=== PATIENT | female | born 1970 | race Caucasian/White ===

== ENCOUNTER 2018-05-01 16:13 | Outpatient (REF) | payer OTHER, SELFPAY ==
[2018-05-01 19:14] LABS: HCT 41.3 % (36.0-46.0); HGB 13.8 g/dL (12.0-15.5); Mean Corp. HGB Concentration 33.4 g/dL (32.0-36.0); Mean Corpuscular Hemoglobin 28.8 pg (27.0-33.0); Mean Corpuscular Volume 86.2 fL (80-95); Mean Platelet Volume 9.2 fL (8.0-11.0); Platelet Count 408 x1000/uL (130-400); RBC 4.79 m/cumm (4.00-5.20); RBC Distribution Width 14.4 % (11.7-14.6); White Blood Cell Count 8.37 k/cumm (4.4-10.8)
[2018-05-01 19:24] LABS: Iron 72 ug/dL (50-175)
[2018-05-01 19:33] LABS: Hemoglobin A1C 5.9 % (4.5-6.2)
[2018-05-01 19:41] LABS: Ferritin 139 ng/mL (8-388); TSH 1.08 uIU/mL (0.358-3.74)
== END 2018-05-01 16:33 ==
LOC: NCHCN 16:13
PROVIDERS: Visit Provider Nurse Practitioner Family
DX: R73.9 Hyperglycemia, unspecified (principal); R40.0 Somnolence
CPT/HCPCS: 85027; 82728; 83036; 83540; 84443

== ENCOUNTER 2022-11-16 10:03 | Outpatient (CLI) | payer OTHER, SELFPAY ==
--- NOTE | 2022-11-16 06:00 | DI.RAD_ITS ---
Exam(s) XR PAIN CLINIC SACRIOILIAC 2V EXAM: XR PAIN CLINIC SACRIOILIAC 2V CLINICAL HISTORY: DX: Sacroiliac Joint Dysfunction TECHNIQUE: 2D and realtime digital imaging was performed. CONTRAST MATERIAL: Refer to procedure report. COMPARISON: No exams were available for comparison FINDINGS: Fluoroscopy was provided for Dr. Quinn during the performance of a sacroiliac joint injection on the left. Please refer to the procedure report for complete details. Ka,r=2.46 mGy IMPRESSION:
[2022-11-16 10:22] VITALS: BP 109/73; PULSE 85; RESP 20; TEMP 37; O2SAT 97
[2022-11-16] MEDS: Omnipaque 240 MG/ML 50 ML BTL IJ (11:14)
[2022-11-16] MEDS: methylPREDNISolone ACETATE 80 MG/ML VIAL IJ (11:14)
[2022-11-16 11:22] VITALS: BP 116/79; PULSE 90; RESP 16; O2SAT 100
--- NOTE | 2022-11-16 13:30 | PDOC.PAIN ---
Date of service: 11/16/22 Time of Service: 13:31 Pain Managment Procedure Note Procedure Note Procedure Note: PROCEDURE NOTE LEFT INTRA-ARTICULAR SACROILIAC JOINT INJECTION Date of Service: November 16, 2022 Patient: CODY COBOS Provider: Sunny Corrigan DO, MPH COMMENTS: I previously evaluated the patient in the office and their symptoms in relation to the sacroiliac joint pain have remained the same. Hem A1c was 6.5 on 10/20/2022. Pre-operative diagnosis: Sacroiliac joint dysfunction Post-operative diagnosis: Same Pre-procedure pain: VAS= 7/10 CODY COBOS has been referred to our [facility] for a Left intra-articular Sacroiliac joint injection. CODY was interviewed and the medical record reviewed. There were no medical, pharmacologic, radiographic or other structural contraindications to attempting a fluoroscopically-guided, contrast-enhanced, intra-articular Sacroiliac joint injection. The risks, benefits, and potential side effects of this procedure were reviewed with the patient. Questions and concerns were addressed. After it was clear that CODY was fully informed about the procedure, the printed consent form was signed by the patient and myself. CODY was placed in the prone position on the fluoroscopy table and an automated blood pressure cuff, 3 lead EKG, and pulse oximeter were applied. The skin entry point for approaching the Left sacroiliac joint was identified under the most advantageous fluoroscopic view and marked. Following thorough Chlorhexadine preparation of the skin and draping with sterile surgical drapes, 2 mls of 1% lidocaine was infiltrated into the skin at the entry point and the surrounding subcutaneous tissues. Next, a 3.5 22G spinal needle was placed under fluoroscopic guidance into the Left sacroiliac joint. Intra-articular placement was confirmed by a clear arthrogram resulting from the injection of 0.25ml of Omnipaque-240. Next, 1 ml of Depo- Medrol 80 mg/ml was injected intra-articularly with an initial reproduction of a significant component of the usual pain. This was followed with 1 ml of 1% Lidocaine. The needle was then removed without difficulty. (49 ml of Omnipaque-240 was wasted). CODY's vital signs were stable throughout the procedure and were as recorded in nursing records. Follow up plans and appointments were discussed with CODY. Post procedure instructions were given as documented in nursing records. Having met discharge criteria, CODY was [facility] from the [facility]. COMMENTS: Post-procedure pain: VAS= 7/10. The procedure was very painful for her. If the patient receives at least 50% improvement in pain and/or function for at least 3 months, this procedure can be repeated if needed. I personally performed this entire procedure. SUNNY CORRIGAN DO, MPH ABPMR-subspecialty board certification in Pain Medicine [facility]
== END 2022-11-16 10:04 | disposition home or self-care (01) ==
LOC: PC 10:03
PROVIDERS: PCP Internal Medicine; Visit Provider Preventive Medicine Occupational Medicine
DX: M46.1 Sacroiliitis, not elsewhere classified (principal)
CPT/HCPCS: 27096; 72200; J1040; Q9967

== ENCOUNTER → 2022-12-22 12:27 | Outpatient (CLI) | payer BC, SELFPAY ==
--- NOTE | 2022-12-22 | DI.MRI_ITS ---
Exam(s) MR LUMBAR SPINE WO EXAM: MR LUMBAR SPINE WO CLINICAL HISTORY: RADICULOPATHY LUMBAR M54.16 URINARY INCONTINIENCE. TECHNIQUE: Multiplanar multisequence MRI of the Lumbar spine was performed. COMPARISON: MR MR LS SPINE W/WO CONTRAST from 08/05/2022 FINDINGS: Bones: The last intervertebral disc space is designated the L5/S1 level for the numbering purpose of this ex amination. The vertebral body heights are well maintained. Alignment: Unremarkable. Degenerative signal changes in the endplates at the L4-5 level.. The marrow signal characteristics a re otherwise unremarkable. Cord: The conus tip ends at the T12 level. It is of normal size and signal intensity. T12-L1: No focal disc herniation is present. No central spinal canal stenosis.No neural foraminal st enosis. L1-2: No focal disc herniation is present. No central spinal canal stenosis.No neural foraminal sten osis. L2-3: No focal disc herniation is present. No central spinal canal stenosis.No neural foraminal filipe nosis. L3-4: Minimal disc bulging.No focal disc herniation is present. No central spinal canal stenosis.No neural foraminal stenosis. L4-5: Left laminectomy L4. Stable appearance of qhnj-ds-scxjgbhl loss of disc height and central di sc protrusion.. Mild facet joint degenerative changes. Mild bilateral neural foraminal narrowing. No central spinal canal stenosis. L5-S1: Minimal disc bulging.No focal disc herniation is present. No central spinal canal stenosis.N o neural foraminal stenosis. The visualized SI joints and sacrum are well maintained. Soft tissues: The paraspinal soft tissues are unremarkable. IMPRESSION: Stable postsurgical changes at L4-5. Stable appearance of central disc protrusion and mild bilateral neural foraminal narrowing. No new findings. DATA REPOSITORY:
== END ==
PROVIDERS: PCP Internal Medicine; Visit Provider Internal Medicine
DX: M54.16 Radiculopathy, lumbar region (principal); M99.71 Connective tissue and disc stenosis of intervertebral foramina of cervical region
CPT/HCPCS: 72148

== ENCOUNTER 2023-04-12 13:14 | Outpatient (CLI) | payer OTHER, SELFPAY ==
[2023-04-12 13:22] VITALS: BP 113/78; PULSE 112; RESP 20; TEMP 36.7; O2SAT 97
--- NOTE | 2023-04-12 13:51 | PDOC.PAIN ---
Date of service: 04/12/23 Time of Service: 13:51 Pain Managment Procedure Note Procedure Note Procedure Note: PROCEDURE NOTE LEFT INTRA-ARTICULAR SACROILIAC JOINT INJECTION Date of Service: April 12, 2023 Patient: Emilee Wilhelm Provider: Sunny Quinn DO, MPH COMMENTS: I previously evaluated the patient in the office and their symptoms in relation to the sacroiliac joint pain have remained the same. Pre-operative diagnosis: Sacroiliac joint dysfunction Post-operative diagnosis: Same Pre-procedure pain: VAS= 8/10 Emilee Wilhelm has been referred to our [facility] for a Left intra-articular Sacroiliac joint injection. Emilee was interviewed and the medical record reviewed. There were no medical, pharmacologic, radiographic or other structural contraindications to attempting a fluoroscopically-guided, contrast-enhanced, intra-articular Sacroiliac joint injection. The risks, benefits, and potential side effects of this procedure were reviewed with the patient. Questions and concerns were addressed. After it was clear that Emilee was fully informed about the procedure, the printed consent form was signed by the patient and myself. Emilee was placed in the prone position on the fluoroscopy table and an automated blood pressure cuff, 3 lead EKG, and pulse oximeter were applied. The skin entry point for approaching the Left sacroiliac joint was identified under the most advantageous fluoroscopic view and marked. Following thorough Chlorhexadine preparation of the skin and draping with sterile surgical drapes, 2 mls of 1% lidocaine was infiltrated into the skin at the entry point and the surrounding subcutaneous tissues. Next, a 3.5 22G spinal needle was placed under fluoroscopic guidance into the Left sacroiliac joint. Intra-articular placement was confirmed by a clear arthrogram resulting from the injection of 0.25ml of Omnipaque-240. Next, 1 ml of Depo- Medrol 80 mg/ml was injected intra-articularly with an initial reproduction of a significant component of the usual pain. This was followed with 1 ml of 1% Lidocaine. The needle was then removed without difficulty. (49 ml of Omnipaque-240 was wasted). Emilee's vital signs were stable throughout the procedure and were as recorded in nursing records. Follow up plans and appointments were discussed with Emilee. Post procedure instructions were given as documented in nursing records. Having met discharge criteria, Emilee was [facility] from the [facility]. COMMENTS: Post-procedure pain: VAS= 3/10. If the patient receives at least 50% improvement in pain and/or function for at least 3 months, this procedure can be repeated if needed. I personally performed this entire procedure. SUNNY QUINN DO, MPH ABPMR-subspecialty board certification in Pain Medicine [facility]
[2023-04-12 13:54] VITALS: BP 116/91; PULSE 118; RESP 15; O2SAT 100
--- NOTE | 2023-04-12 13:56 | DI.RAD_ITS ---
Exam(s) XR PAIN CLINIC SACRIOILIAC 2V EXAM: XR PAIN CLINIC SACRIOILIAC 2V CLINICAL HISTORY: Dx: Sacroiliac Joint Dysfunction TECHNIQUE: 2D and realtime digital imaging was performed. CONTRAST MATERIAL: Refer to procedure report. COMPARISON: No exams were available for comparison FINDINGS: Fluoroscopy was provided for Dr. Quinn during the performance of a left SI joint injection. Please r efer to the procedure report for complete details. Ka,r=3.21 mGy IMPRESSION: RADIATION DOSE DELIVERED:
[2023-04-12] MEDS: Nerve Block Tray 1 EACH MC (13:57)
[2023-04-12] MEDS: Omnipaque 240 MG/ML 50 ML BTL IJ (13:57)
[2023-04-12] MEDS: methylPREDNISolone ACETATE 80 MG/ML VIAL IJ (13:57)
== END 2023-04-12 13:15 | disposition home or self-care (01) ==
LOC: PC 13:14
PROVIDERS: PCP Internal Medicine; Visit Provider Preventive Medicine Occupational Medicine
DX: M46.1 Sacroiliitis, not elsewhere classified (principal)
CPT/HCPCS: 123; 27096; 72200; 00123; J1040; Q9967

== ENCOUNTER → 2023-10-04 00:55 | Outpatient (CLI) | payer OTHER, SELFPAY ==
--- NOTE | 2023-10-04 | DI.MRI_ITS ---
Exam(s) MR LUMBAR SPINE WO/W EXAM: MR LUMBAR SPINE WO/W CLINICAL HISTORY: LUMBAR DISC HERNIATION WITH RADICULOPATHY, M51.16. TECHNIQUE: Multiplanar multisequence MRI of the Lumbar Spine was performed. Additional pre and post gadolinium fat suppressed T1 sagittal and axial sequences were performed. CONTRAST MATERIAL: IV Contrast: 14 mL of Dotarem contrast administered. COMPARISON: MR MR LUMBAR SPINE WO from 12/22/2022 FINDINGS: Bones: The last intervertebral disc space is designated the L5/S1 level for the numbering purpose of this examination. The vertebral body heights are well maintained. Alignment is satisfactory. The signal characteristics are unremarkable. Cord: The conus tip ends at the T12 level. It is of normal size and signal intensity. T12-L1: No disc herniations or bulges are present. No central spinal canal or neural foraminal stenos is. L1-2: No disc herniations or bulges are present. No central spinal canal or neural foraminal stenosis . L2-3: No disc herniations or bulges are present. No central spinal canal or neural foraminal stenosis . L3-4: No disc herniations or bulges are present. No central spinal canal or neural foraminal stenosis . L4-5: Left laminectomy. Tzhb-le-cytzvfjf loss of disc height and partial disc desiccation. Concentr ic disc bulging. Previously noted central disc protrusion is no longer evident. Mild facet degenera tive changes, greater on the right. No central spinal canal stenosis. Mild bilateral neural foramin al narrowing, greater on the right. L5-S1: No disc herniations or bulges are present. No central spinal canal or neural foraminal stenosi s. The visualized SI joints and sacrum are well maintained. Soft tissues: Enhancement in the paraspinal soft tissues at the L4-5 level related to the previous huerta rgery. No abnormal enhancement within the central canal, vertebral bodies or discs. IMPRESSION: Postsurgical changes at L4-5. Previously noted central disc protrusion no longer present. There is mild loss of disc height and mild disc bulging as well as mild bilateral neural foraminal narrowing. No significant central canal stenosis. No suspicious enhancement. DATA REPOSITORY:
--- OUTSIDE RECORDS SUMMARY | 2023-10-04 01:01 | XMS_ITS | Data Portability ---
Author Organization [facility] [place] [address] Care Team Providers Care Cloth Coverer Name Role Phone DEVON JETT Primary Care Provider Assessment No assessment recorded. Plan of Treatment Reminders Order Date Submit Date Provider Last Modified By Organization Details Last Modified Time Details Appointments None recorded. Lab rapid strep group A, throat [id number], [place], [address], 3 12:16:50 influenza virus A + B + SARS-CoV-2 (COVID19) Ag panel, rapid IA, upper respiratory specimen [id number], [address], [place], [address], 3 12:16:50 Referral None recorded. Procedures None recorded. Surgeries None recorded. Imaging None recorded. Medication Orders amoxicillin 875 mg-potassiu m clavulanate [address] [facility], [address] [place] [address], [id number], 4 14:21:40 cephalexin 500 [address] capsule [address] [facility], [address] [place], [address], 14:40:11 Patient TargetsNo targets recorded. Patient InstructionsNo instructions recorded. Reason for Referral None Reported. Results Created Date Observation Date Name Description Value Unit Range Abnormal Flag LastModifiedBy Organization Detail LastModifiedTime 01/26/2001/25/2023 influ john virus A + B + SARS- CoV-2 (COVI D19) Ag panel , rapid IA, upper respi rator y speci men Influenza A negati ve Not Available [address] [place] [address], [phone], 01/25/2023 11:41:04 01/26/20 23 01/25/2023 influ john virus A + B + SARS- CoV-2 (COVI D19) Ag panel , rapid IA, upper respi rator y speci men Influenza B negati ve Not Available [address] [place] [address], [phone], 01/25/2023 11:41:04 01/26/20 23 01/25/2023 influ john virus A + B + SARS- CoV-2 (COVI D19) Ag panel , rapid IA, upper respi rator y speci men SARS-COV-2 negati ve Not Available [address] [place] [address], [phone], 01/25/2023 11:41:04 01/26/2001/25/2023 rapid strep group A, throa t Strep negati ve Not Available [address] [place] [address], [phone], 01/25/2023 11:40:37 Result Notes None recorded. Procedures Surgical History Date Name Laterality Status Provider Name and Address Organization Details Recorded Time 09/06/2023 I&D completed [address], [place], [address], [facility] 09/06/2023 14:43:08 Imaging Results None recorded. Procedure Notes None recorded. Medical Equipment None Reported. Allergies Allergen ID Allergen Name Allergen Category Reaction Reaction Severity Criticality Documentation Date Start Date Code Code System Note Provider Name and Address Organization Details Recorded Time 50366 metoprolo l Not available other mild low 01/25/2023 6918 RxNorm depre carloson Brenda Helm RN null, [facility] 3 11:17:49 22244 Provigil medicatio n other Not available low 01/25/2023 07882 4 RxNorm Brenda Helm RN null, [facility] 3 11:18:28 Medications Name Sig Start Date Stop Date Status Note LastModified by Organization Details LastModified Time trazodone 50 mg tablet Take 1 tablet every day by oral route. 09/05 completed Not Available Not Available Not Available atorvasta tin 10 mg tablet Take 1 tablet every day by oral route. active unsure of the strength Not Available Not Available Not Available benzonata te 200 mg capsule Take 1 capsule 3 times a day by oral route for 5 days. 09/05 completed Not Available Not Available Not Available trazodone 100 mg tablet Take 1 tablet twice a day by oral route. 09/05 completed Not Available Not Available Not Available Compazine 5 mg tablet Take 1 tablet every 4 hours by oral route. active Not Available Not Available No t Available baclofen 10 mg tablet Take 1 tablet 3 times a day by oral route. active Not Available Not Available No t Available cephalexi n 500 mg capsule Take 1 capsule twice a day by oral route for 7 days. 2023 active Not Available Not Available Not Avai lable hydroxyzi ne HCl 10 mg tablet Take by oral route. active Not Available Not Available No t Available amoxicill in 875 mg-potass ium clavulana te 125 mg tablet Take 1 tablet every 12 hours by oral route for 10 days. 09/05 completed Not Available Not Available Not Available ketorolac active unsure of dose. PRN Not Available Not Available Not Available Ubrelvy 100 mg tablet Take by oral route. active Not Available Not Available No t Available Nurtec ODT 75 mg disintegr ating tablet Take by oral route. active Not Available Not Available No t Available Vitals Date Recorded Body height Body mass index (BMI) Body weight Respiratory rate Oxygen saturation Oxygen saturation in Arterial blood by Pulse oximetry Heart rate Body temperature Systolic blood pressure Diastolic blood pressure Provider Name and Address Organization Details Last Updated DateTime 3 165.1 cm 25 kg/m2 16646.8 6 g 19 /min 98 % 98 % 113 /min 100.1 [degF] 104 mm[Hg] 72 mm[Hg] Brenda Helm RN [facility] 3 11:17:07 Date Recorded Body height Respiratory rate Body mass index (BMI) Body weight Body temperature Oxygen saturation Oxygen saturation in Arterial blood by Pulse oximetry Heart rate Systolic blood pressure Diastolic blood pressure Provider Name and Address Organization Details Last Updated DateTime 4 165.1 cm 18 /min 24.5 kg/m2 50580.4 8 g 98 [degF] 98 % 98 % 82 /min 106 mm[Hg] 64 mm[Hg] Meenakshi Kwong MA [facility] 4 14:23:56 Social History Question Answer Notes LastModified by Organizat ion Details LastModified Time Tobacco Smoking Status Never Smoker Brenda Helm RN [facility], [facility] 01/25/2023 11:21:15 What Was The Date Of Your Most Recent Tobacco Screening? 09/06/2023 [email or web address] Information not available 09/06/2023 Has Tobacco Cessation Counseling Been Provided? No [email or web address] Information not available 09/06/2023 On What Date Was Tobacco Cessation Counseling Provided? 01/25/2023 Information not available 01/25/2023 Do You Or Have You Ever Used Any Other Forms Of Tobacco Or Nicotine? No Information not available 01/25/2023 Sex: Unknown Functional Status None recorded. Mental Status None recorded. Family History Nothing Reported. Medical History No medical history recorded. Gynecological HistoryNo gynecological history recorded. Obstetrics History GPAL:G 0 P 0 0 0 0 Immunizations Vaccine Type Date Status Provider Name and Address Organization Details Recorded Time COVID-19, mRNA, LNP-S, bivalent, PF, 50 mcg/0.5 mL or 25mcg/0.25 mL dose 06/21/2020 completed Brenda Helm RN null, [facility] 01/25/2023 11:09:06 COVID-19, mRNA, LNP-S, bivalent, PF, 50 mcg/0.5 mL or 25mcg/0.25 mL dose 07/21/2020 completed Brenda Helm RN null, [facility] 01/25/2023 11:09:10 influenza, unspecified formulation 12/27/2022 completed LINDA Tsai, [facility] 01/25/2023 11:09:25 Tdap 05/24/2013 completed LINDA Tsai, [facility] 01/25/2023 11:09:38 zoster, unspecified formulation 06/12/2022 completed LINDA Tsai, [facility] 01/25/2023 11:09:46 zoster, unspecified formulation 08/22/2022 completed LINDA Tsai, [facility] 01/25/2023 11:09:51 Past Encounters Encounter ID Performer Location Encounter Start Date Encounter Closed Date Diagnosis/Indication Diagnosis SNOMED-CT Code [id number] MARLEN GAINES PA-C [address] [address] 01/25/2023 11:06:57 01/25/2023 11:54:41 Influenza-like illness [id number] Pneumonia [id number] [id number] MARLEN GAINES PA-C [address] [address] 09/06/2023 14:04:15 09/06/2023 14:41:34 Paronychia of finger 791664618 Health Concerns Section Related Observation LastModified by Organization Detai ls LastModified Time None Recorded Concern Status LastModified by Organization Details LastModified Time None Recorded Advance Directives Directive None Recorded Payers Encounter Date Sequence Insurance Name Policy Number Policy Guevara Covered Member ID Guevara Member ID Guarantor Name 01/25/2023 1 [employer]: [place] Emilee Wilhelm [id number] Emilee Wilhelm 09/06/2023 1 [facility] [id number] Emilee Wilhelm [id number] Emilee Wilhelm Notes Date Note Type Note Provider Name and Address Organization Details Recorded Time 01/25/2023 text/html HPI Notes: Giovanny fernandez is a 52-year-old female presenting for cough and cold symptoms. Has been sick for 1 week. Reports productive cough. No chest pain or shortness of breath. No history of asthma or COPD. Non-smoker. Associated nasal congestion and sore throat. No ear pain sinus pain or headache. Reports significant fatigue. Subjective fevers and chills. Has been taking ddnq-qkp-vwtqfod cold medication with some relief but no resolution. No known sick contacts [address], [place], [address], [facility]. 01/25/2023 12:08:29 09/06/2023 text/html HPI Notes: Giovanny fernandez is a 53-year-old female presenting for left third finger pain and swelling. Denies any injury or trauma. Started having swelling this along the side of the nail which has gotten progressively worse. She has tried soaking it in Epsom salts with limited relief. Has been taking iguu-qzm-hblboft pain medicines also with minimal relief. No history of similar issues in the past. [address], [place], [address], [facility]. 09/06/2023 14:43:58 OBGyn Episode No OBEpisode recorded.
--- OUTSIDE RECORDS SUMMARY | 2023-10-04 01:01 | XMS_ITS | Continuity of Care Document ---
Author Organization [facility] Address [address] [place] [address] Care Team Providers Care Financial Analyst Accountant Name Role Phone Dina Diaz Primary Care Physician Encounter [facility] [id number] Date(s): 10/06/22 - 10/06/[address] [address] Encounter Diagnosis Screening for breast cancer(Discharge Diagnosis) - 10/06/22 Breast calcifications(Discharge Diagnosis) - 10/06/22 Discharge Disposition: Home or Self Care Attending Physician: Dina Diaz Admitting Physician: Dina Diaz Referring Physician: Dina Diaz Allergies, Adverse Reactions, Alerts Substance Reaction Severity Status SOY Unknown Active WHEAT Unknown Active SHELLFISH DERIVED Anaphylactic reaction Severe A ctive TREE AND SHRUB POLLEN 1 Unknown Acti ve codeine Unknown Active metoprolol 2 Depression Unknown Active amitriptyline Unknown Active imipramine Unknown Unknown Active morphine Unknown Active acetaminophen-hydrocodone Unknown Unknown Ac tive acetaminophen-oxycodone Unknown Unknown Acti ve modafinil 3 runny nose Difficulty swallowing Other Unknown Active armodafinil 4 Other Unknown Active Roxicet Unknown Unknown Active Provigil Unknown Unknown Active oxyCODONE Unknown Active HYDROcodone Unknown Unknown Active ARIPiprazole Unknown Active Tree Nuts Unknown Unknown Active Peanuts Unknown Active Latex 5 no reaction Unknown Active dilTIAZem Depression Chest pain Moderate Active rimegepant Eruption Severe Active DilTIAZem (Eqv-Cardizem CD) Unknown Unknown Active 1per AllScripts 2depression 3Excessive runny nose and hard to swallow. 4Excessive runny nose and hard to swallow. 5immunotherapy Assessment and Plan Future Appointments Immunizations Given and Recorded Vaccine Date Status Refusal Reason zoster vaccine, inactivated 1 06/12/22 Recorded influenza virus vaccine, inactivated 12/22/21 Give n influenza virus vaccine, live 11/10/20 Recorded influenza virus vaccine, live 05/01/18 Recorded SARS-CoV-2 (COVID-19) mRNA-1273 vaccine 07/21/20 R ecorded SARS-CoV-2 (COVID-19) mRNA-1273 vaccine 06/21/20 R ecorded measles/mumps/rubella virus vaccine 04/01/14 Recor ded influenza, unspecified formulation 04/01/14 Record ed influenza, unspecified formulation 2 12/31/10 Kal rded influenza, unspecified formulation 3 01/18/10 Kal rded tetanus/diphth/pertuss (Tdap) adult/adol 05/24/13 Recorded Td(adult) unspecified formulation 04/27/10 Recorde d Td(adult) unspecified formulation 04/27/10 Recorde d tetanus immune globulin 06/05/07 Recorded 1Result Comment: [employer]zaida [employer] 2Result Comment: 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: GlaxoSmithKline 3Result Comment: 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: San[employer]i P[employer] Medications acetaminophen 325 mg oral tablet 650 mg = 2 tab, Oral, every 4 hr, PRN other (see comment), as needed, 0 Refill(s) Start Date: 07/08/21 Status: Ordered atorvastatin 20 mg oral tablet 20 mg = 1 tab, Oral, every morning, # 90 EA, 3 Refill(s), Pharmacy: [id number], 165, cm,08/14/21 10:33:00 EDT, Height/Length Dosing, 56, kg, 08/14/21 10:33:00 EDT, Weight Dosing Start Date: 11/25/21 Status: Ordered baclofen 10 mg oral tablet 90 EA, TAKE 1 TABLET BY MOUTH THREE TIMES DAILY NEEDED FOR MILD TO MODERATE HEADACHES - MAX DAILY DOSE 3 TABLETS (30MG), 0 Refill(s) Start Date: 04/06/22 Status: Ordered cyclobenzaprine 10 mg oral tablet 10 mg = 1 tab, Oral, TID, PRN as needed for muscle spasm, # 30 tab, 0 Refill(s), Pharmacy: [id number], 165, cm, 03/28/22 10:18:00 EST, Height/Length Dosing, 62, kg, 03/28/22 10:18:00 EST, Weight Dosing Start Date: 03/28/22 Status: Ordered EPINEPHrine 0.3 mg injectable kit 1 auto, IM, As Directed, PRN other (see comment), as needed, 0 Refill(s) Start Date: 07/08/21 Status: Ordered gabapentin 100 mg oral capsule Oral, TID, 100 Unknown, 1 Refill(s), Take 100 mg by mouth 3 times daily., 0 Refill(s) Start Date: 09/15/22 Status: Ordered hydrOXYzine hydrochloride 25 mg oral tablet Oral, 1 Unknown, 1 Refill(s), Take 1 tablet by mouth as needed., 0 Refill(s) Start Date: 09/15/22 Status: Ordered ibuprofen 800 mg oral tablet 800 mg = 1 tab, Oral, every 8 hr, # 30 tab, 0 Refill(s), Pharmacy: [id number], 165, cm, 03/28/22 10:18:00 EST, Height/Length Dosing, 62, kg, 03/28/22 10:18:00 EST, Weight Dosing Start Date: 03/28/22 Status: Ordered ketorolac See Instructions, PRN, 0 Refill(s) Start Date: 09/16/22 Status: Ordered Lyrica 25 mg oral capsule Oral, 25 Unknown, 1 Refill(s), Take 25 mg by mouth., 0 Refill(s) Start Date: 09/15/22 Status: Ordered Nurtec ODT 75 mg oral tablet, disintegrating 0 Refill(s) Start Date: 08/16/22 Status: Ordered prochlorperazine 10 mg oral tablet 10 mg = 1 tab, Oral, every 8 hr, PRN other (see comment), as needed per [facility] headache clinic Start Date: 07/08/21 Status: Ordered Qulipta 60 mg oral tablet 30 EA, TAKE 1 TABLET BY MOUTH ONCE DAILY, 0 Refill(s) Start Date: 09/15/22 Status: Ordered traZODone 100 mg oral tablet See Instructions, TAKE 1 TABLET BY MOUTH ONCE DAILY AT BEDTIME, # 90 tab, 0 Refill(s), Pharmacy: [id number], 165, cm, 04/12/22 13:34:00 EST, Height/Length Dosing, 59.87, kg, 04/12/22 13:34:00 EST, Weight Dosing Start Date: 07/14/22 Status: Ordered Ubrelvy 100 mg oral tablet See Instructions, TAKE 1 TABLET BY MOUTH NEEDED (TAKE AT ONSET OF MIGRAIN, CAN REPEAT DOSE IN 2 HOURS, MAX DOSE OF 200 MG) Start Date: 08/26/21 Status: Ordered vilazodone 20 mg oral tablet 30 EA, TAKE 1 TABLET BY MOUTH ONCE DAILY FOR 30 DAYS, 0 Refill(s) Start Date: 09/15/22 Status: Ordered Problem List Condition Confirmation Course Effective Dates Status Health Status Informant Abnormal cervical Papanicolaou smear Confirmed Active Allergic rhinitis 1 Confirmed 02/01/21 Active Anaphylaxis Confirmed Active Anxiety Confirmed Active Arthritis Confirmed Active Bipolar disorder 2 Confirmed 12/13/13 Active Borderline personality disorder Confirmed 05/25/21 Active Cataplexy and narcolepsy 3 Confirmed 01/07/20 Active Cobalamin deficiency Confirmed 05/07/15 Active Daytime somnolence 4 Confirmed Active Degeneration of lumbar intervertebral disc Confirmed 03/28/14 Active Female stress incontinence Confirmed 01/08/15 Active Fibromyalgia 5 Confirmed Active Herniation of nucleus pulposus of lumbar intervertebral disc Confirmed 04/13/22 Active History of subtotal thyroidectomy 6 Confirmed 12/14/20 Active Human papilloma virus infection Confirmed Active Hyperlipidemia 7 Confirmed Active Hypothyroidism Confirmed Active Incomplete bladder emptying Confirmed Active Injury of left shoulder Confirmed Active Insomnia 8 Confirmed Active Laryngopharyngeal reflux Confirmed 08/20/13 Active Low back pain Confirmed Active Mammography abnormal 9 Confirmed 01/07/21 Active Medication overuse headache Confirmed 06/29/21 Active Migraine 10 Confirmed Active Mixed anxiety and depressive disorder Confirmed 07/16/15 Active Neuropathy 11 Confirmed Active Obstructive sleep apnea syndrome 12 Confirmed Active Bilateral knee pain 13 Confirmed Active Partial mastectomy 14 Confirmed Active Well adult exam Confirmed Active Posttraumatic stress disorder Confirmed 05/25/21 Active Prediabetes 15 Confirmed Active Prolapsed lumbar intervertebral disc Confirmed 04/13/22 Active Sleep apnea Confirmed 03/20/15 Active Tachycardia Confirmed 11/01/18 Active Toxic uninodular goiter Confirmed 12/24/13 Active Vitamin D deficiency Confirmed 07/22/[address] Cooper - allergy to trees, weeds, grasses, dust mite, dogs/cats 2Outside Source Comment: Overview: meds as of . Lamictal 100mg BID. [place] ER 450mg 1 1/2 tabs qhs. cymbalta 60mg. Zalephon for sleep. Has seen Dr. Singer at [facility]: 12/[facility]: New diagnosis of narcolepsy with cataplexy, clinical diagnosis based on cataplexy history and MSLT showed very short sleep latency but no SOREMPs, suspect MSLT may be false negative. Unable to repeat due to insurance coverage/cost and medication disruption (she had to stop doxepin which was helping her sleep better at night). 03/11/20: cont methylphenidate ER 10mg (lowest avail dose), but pt does not feel effect is enough. offered inc to 20mg vs adding sunosi. she prefers the latter. I discussed risks/side efx of sunosi, including inc HR/BP, she is aware and is compliant on her beta gabriel and will be monitoring her HR closely. Urinating frequently at night was barrier to xywav use, so she wants hold off on trying this again until AFTER her bladder prolapse repair surgery in Apr 2020. ADDENDUM 03/25/20: pt wants to proceed w/ wakix after clarifying that cetrizine would be fine to useas antihistamine. checked she had EKG Dec 2019 showing normal Qtc 432msec as QT prolongation is concern with wakix. Rx form filled for wakix, titration in 30 days up to 35.6mg as tolerated, waiting on pt to fill her portion before faxing in. 05/19/20: pt wishes to try Xywav again now that she thnks her freq nocturia is improving. had her tvt surgery. not on sunosi or methylphenidate, per factors below. Aside from xywav - i offered her trying wakix 4.45mg x 1.5 tabs again, vs low dose vyvanse 10mg qAM. she will let me know if she wishes to do so. 06/12/20: pt requests to try vyvanse 10mg qAM, rx sent. Timeline/Medications tried: Modafinil - many years ago - effective but d/c 2/2 severe rhinorrhea to point of throat closing Armodafinil - 12/11/2019 - effective, but felt similar as modafinil, so d/c'ed Methylphenidate ER 10mg - 12/10 to 12/24/19 - effective for 2 days, took in morning, then laying inbed at night got sudden onset heart palpitations and chest pain, given baseline tachycardia (Hr 90sto low 100s), d/c'ed Xywav - 01/28/20 to present, with pauses- effective for few nights/days, side efx: excessive sweating, excessive urinating, dizziness, sleep paralysis and not responding well at all on a higher dose with inability to stay asleep. Sunosi 75mg - effective but had rhinorrhea wakix - 17.8mg or 02/28 17.8mg kept her wake all night, heart racing (at bedtime); 4mg pill did not do anything methylphenidate 10mg - did not like how she felt on it 4From 05-19-2020 visit: timeline: ESS always very high in high 10's or 20s. 07/31/18: first time I met patient, she had yahir, then UPPP. complex sleep hx with hypersomnia and insomnia. offered MSLT but unable to pay due to underinsurance. 06/18/19: cont struggle re: sleep attacks, overwhelming excessive daytime sleepiness and fatigue. and severe sleep fragmentation. Modafinil tried in past effective but d/c'ed 2/2 questionable allergicrxn. on vit D. ? Cataplexy: She also now reports facial and leg weakness triggered by anger. occ basis. she had remote hx of sleep paralysis in her 30s, none currently. 09/17/19: ready to do PSG/MSLT. d/c doxepin 2 wks prior MSLT then resume. wanted other suggestions, case reports only but can try L-carnitine 500mg daily, but should stop 2 weeks prior to sleep studies. see narcolepsy section 5From 12-14-2020 visit: Medications trialed and unable to tolerate TCAs, duloxetine, gabapentin, lyrica, cyclobenzaprine. She has seen rheumatology . 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 We discussed trial of naltrexone for her chronic pain. Naltrexone 1-4.5 mg qd. Would need to send rx to compounding pharmacy in [place]. Reviewed MOA, side effects. She would also like to get involved in resistance band training. >50% of this 40 minute appointment was spent in face to face counseling. 6From 12-14-2020 visit: S/P LT partial thyroidectomy. TSH annually. She is not on thyroid replacement. 7From 11-03-2020 visit: Has been on atorvastatin 20 mg qd since 10/2019. She is tolerating well. Repeat FLP and CMP. 8suspect to be due to narcolepsy with cataplexy 9[facility] consultation 01/07/21 with additional imaging, BI-RADS: 3, repeat mammo of LT breast in 6 months 10From 03-08-2019 visit: Patient has a h/o migraine which recently increased in frequency and severity. She notes sleep is always an issue for her. She drinks very little caffiene and hydrates adequately. I have recommended reducing use of OTC analgesics as she may be experiencing rebound headaches. I will rx sumatriptan 50 mg as an abortive measure. Due to the acute increase in frequency and severity of migraines will evaluate further with MRI of brain. 11diagnosis from previous EMR; pt not aware of this diagnosis 12s/p UPPP; residual borderline mild YAHIR that is treated by avoiding back position sleep From 05-19-2020 visit: 07/31/18: [facility] records not available at time of consult, but per pt's recollection, she may have had mild to moderate YAHIR, tried cpap but could not tolerate, then proceeded with uvulopalatoplasty. Her symptoms sound out of proportion to mild to mod YAHIR, but I advise repeat sleep study to evaluate. Pt states she cannot have expensive test due to not being able to afford her 2000 dollar insurance deductible. she dos not think she will qualify for fin assistance at [facility] due to just being . Requested [facility] records to review. Order Home Sleep Study, get prior authorization, requested based on snoring, daytime hypersomnia, unrefreshing sleep, difficulty falling and staying asleep. 09/04/2018: home sleep study s/p UPPP at 169lbs did not show YAHIR, cannot rule out milder YAHIR with RERAs, but pt cannot have in lab PSG due to cost for her/underinsured. at the time. AHI 2.4/hr. 06/18/19: I do not think YAHIR is contributing significantly as her symptoms really sound more like narcolepsy/IH. however if we are able to do PSG/MSLT, would be able to also r/o YAHIR more definitively. 12/03/19: advised her to avoid direct supine sleep which is when she has events, otherwise even slight lateral tilt, she is mostly free of resp events on recent PSG. 01/14/20: no issues with YAHIR, she utilizes positional therapy which is adequate based on her sleep study results 05/19/20: pt now reports she does NOT usually sleep lateral as back sleep more comfortable for her. she is open to trying cpap now (anything to help w/ my sleep, she tried in past but wants to try again as equipment is newer). will need to review her PSG again and see if she may have higher RDI uponrescoring. if so, she would qualify. if not, she needs to repeat PSG w/ more supine position sleep (when she had the RERAs) 13per AllScripts 14Bilateral 15per pt packet; Patient with A1c of 5.9% 04/2018, has made several lifestyle modifications. Evaluate A1c today per patient requestion. We discussed snacks with increased protein and fiber to decrease hungry and nighttime waking. She is interested in referral to nutrition for further guidance. Procedures Procedure Date Related Diagnosis Body Site Status Laminectomy, facetectomy and foraminotomy (unilateral or bilateral with decompression of spinal cord, cauda equina and/or nerve root(s), (eg, spinal or lateral recess stenosis)), single vertebral segment; lumbar 04/14/22 Completed Hemilaminectomy 1 04/13/22 Complet ed Removal or revision of sling for stress incontinence (eg, fascia or synthetic) 03/15/22 Completed Colonoscopy 2 06/10/20 Completed Egd/endoscopy 3 06/10/20 Completed Tlh w/t/o 250 g or less 4 04/30/20 Completed Repair of stress incontinenc e by suprapubic sling 09/27/15 Completed Subtotal thyroidectomy 01/26/14 Co mpleted Partial mastectomy 11/26/09 Comple maame Orthopedic surgery 5 09/2009 Comp leted Rhinoseptoplasty 02/26/06 Complete d Endometrial ablation 11/27/99 Comp leted Cholecystectomy 07/27/97 Completed Tubal ligation 02/27/96 Completed 1LT L4-5 hemilaminectomy, medial facetectomy and microsurgical discectomy 2repeat in 5 yrs due to h/o of colon polyps 3gastritis, esophagitis. 4TLH, BS, USVVS, TVT, cystocele repair 5shoulder/labrum repair 09/2009 Social History Social History Type Response Smoking Status Smoking tobacco use: Never tobacco user;Never 1 entered on: 08/16/22 Sex Female 1How much tobacco do you chew: none What was the date of your most recent tobacco screenin05-25-2021 Patient Care team information Care Team Personnel Name: Dina Diaz Position: Physician Member Role: Informed Provider Address: Address: [facility] [address] [id number] Care Team Related Persons Name: EMY COBOS Address: [address] [id number] Name: AMARIS DE LA FUENTE Address: Home
--- OUTSIDE RECORDS SUMMARY | 2023-10-04 01:01 | XMS_ITS | Continuity of Care Document ---
Author Organization [facility] Address [address] [place] [address] Care Team Providers Care Cosmetic Account Coordinator Name Role Phone Dina Diaz Primary Care Physician [facility] Date([facility] 01/03/22 - 01/03/22 [facility] [address] [place] [address] Encounter Diagnosis Palpitations(Discharge Diagnosis) - 01/03/22 Tachycardia(Discharge Diagnosis) - 01/03/22 Discharge Disposition: Home or Self Care Attending Physician: Dina Diaz Admitting Physician: Dina Diaz Referring Physician: Dina Diaz Allergies, Adverse Reactions, Alerts Substance Reaction Severity Status SOY Unknown Active WHEAT Unknown Active SHELLFISH DERIVED Anaphylactic reaction Severe A ctive TREE AND SHRUB POLLEN 1 Unknown Acti ve codeine Unknown Active metoprolol 2 Depression Unknown Active amitriptyline Unknown Active morphine Unknown Active modafinil 3 runny nose Difficulty swallowing Other Unknown Active armodafinil 4 Other Unknown Active oxyCODONE Unknown Active ARIPiprazole Unknown Active Peanuts Unknown Active Latex 5 no reaction Unknown Active dilTIAZem Depression Chest pain Moderate Active 1per AllScripts 2depression 3Excessive runny nose and hard to swallow. 4Excessive runny nose and hard to swallow. 5immunotherapy Assessment and Plan Future Appointments Future Scheduled Tests Laboratory* Lipid Panel 07/13/21 Radiology* MRI Shoulder w/o Contrast Left 09/01/21 * MG Mammo Diagnostic Left w/ Gil 09/21/21 Immunizations Given and Recorded Vaccine Date Status Refusal Reason influenza virus vaccine, inactivated 12/22/21 Give n influenza virus vaccine, live 11/10/20 Recorded influenza virus vaccine, live 05/01/18 Recorded SARS-CoV-2 (COVID-19) mRNA-1273 vaccine 07/21/20 R ecorded SARS-CoV-2 (COVID-19) mRNA-1273 vaccine 06/21/20 R ecorded measles/mumps/rubella virus vaccine 04/01/14 Recor ded tetanus/diphth/pertuss (Tdap) adult/adol 05/24/13 Recorded Td(adult) unspecified formulation 04/27/10 Recorde d tetanus immune globulin 06/05/07 Recorded Medications acetaminophen 325 mg oral tablet 650 mg = 2 tab, Oral, every 4 hr, PRN other (see comment), as needed, 0 Refill(s) Start Date: 07/08/21 Status: Ordered Aimovig SureClick Autoinjector 70 mg/mL subcutaneous solution 70 mg =, Subcutaneous, every month, # 1 mL, 0 Refill(s) Start Date: 08/18/21 Status: Ordered atorvastatin 20 mg oral tablet 20 mg = 1 tab, Oral, every morning, # 90 EA, 3 Refill(s), Pharmacy: [id number], 165, cm,08/14/21 10:33:00 EDT, Height/Length Dosing, 56, kg, 08/14/21 10:33:00 EDT, Weight Dosing Start Date: 11/25/21 Status: Ordered buPROPion 300 mg/24 hours (XL) oral tablet, extended release 300 mg = 1 tab, Oral, every morning, # 30 tab, 3 Refill(s), Pharmacy: [id number], 165, cm, 08/14/21 10:33:00 EDT, Height/Length Dosing, 56, kg, 08/14/21 10:33:00 EDT, Weight Dosing Start Date: 10/13/21 Stop Date: 02/10/22 Status: Ordered EPINEPHrine 0.3 mg injectable kit 1 auto, IM, As Directed, PRN other (see comment), as needed, 0 Refill(s) Start Date: 07/08/21 Status: Ordered ibuprofen 200 mg oral capsule 600 mg = 3 cap, Oral, As Directed, every 6 - 8 hours, 0 Refill(s) Start Date: 07/08/21 Status: Ordered prochlorperazine 10 mg oral tablet 10 mg = 1 tab, Oral, every 8 hr, PRN other (see comment), as needed per [facility] headache clinic Start Date: 07/08/21 Status: Ordered traZODone 100 mg oral tablet 100 mg = 1 tab, Oral, every night at bedtime, 0 Refill(s) Start Date: 07/08/21 Status: Ordered Ubrelvy 100 mg oral tablet See Instructions, TAKE 1 TABLET BY MOUTH NEEDED (TAKE AT ONSET OF MIGRAIN, CAN REPEAT DOSE IN 2 HOURS, MAX DOSE OF 200 MG) Start Date: 08/26/21 Status: Ordered Problem List Condition Confirmation Course Effective Dates Status H ealth Status Informant Abnormal cervical Papanicolaou smear Confirmed Active Allergic rhinitis 1 Confirmed 02/01/21 Active Anaphylaxis Confirmed Active Anxiety Confirmed Active Arthritis Confirmed Active Borderline personality disorder Confirmed 05/25/21 Active 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 Daytime somnolence 3 Confirmed Active Fibromyalgia 4 Confirmed Active History of subtotal thyroidectomy 5 Confirmed 12/14/20 Active Human papilloma virus infection Confirmed Active Hyperlipidemia 6 Confirmed Active Hypothyroidism Confirmed Active Incomplete bladder emptying Confirmed Active Injury of left shoulder Confirmed Active Insomnia 7 Confirmed Active Low back pain Confirmed Active Mammography abnormal 8 Confirmed 01/07/21 Active Migraine 9 Confirmed Active Neuropathy 10 Confirmed Active Obstructive sleep apnea syndrome 11 Confirmed Active Bilateral knee pain 12 Confirmed Active Partial mastectomy 13 Confirmed Active Posttraumatic stress disorder Confirmed 05/25/21 Active Prediabetes 14 Confirmed Active Tachycardia Confirmed 11/01/[address] Cooper - allergy to trees, weeds, grasses, dust mite, dogs/cats [facility] 06-12-2020 visit: 12/03/19: New diagnosis of narcolepsy [...] but had rhinorrhea wakix - 17.8mg or 1/2 17.8mg kept her wake all night, heart racing (at bedtime); 4mg pill did not do anything methylphenidate 10mg - did not like how she felt on it [facility]: timeline: ESS always very high [...] prior to sleep studies. see narcolepsy section [facility] visit: Medications trialed and unable to tolerate TCAs, duloxetine, gabapentin, lyrica, cyclobenzaprine. She has seen rheumatology . 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 We discussed trial of naltrexone for her chronic pain. Naltrexone 1-4.5 mg qd. Would need to send rx to compounding pharmacy in [place]. Reviewed MOA, side effects. She would also like to get involved in resistance band training. >50% of this 40 minute appointment was spent in face to face counseling. 5[facility]-2020 visit: S/P LT partial thyroidectomy. TSH annually. She is not on thyroid replacement. 6[facility] 11-[facility]-2020 visit: Has been on atorvastatin 20 mg qd since 10/2019. She is tolerating well. Repeat FLP and CMP. 7suspect to be due to narcolepsy with cataplexy [facility] with additional imaging, BI-RADS: 3, repeat mammo of LT breast in 6 months 9From 03-08-2019 visit: Patient has a h/o migraine [...] will evaluate further with MRI of brain. 10diagnosis from previous EMR; pt not aware of this diagnosis 11s/p UPPP; residual borderline mild YAHIR that is treated by avoiding back position sleep From 05-19-2020 visit: 07/31/18: [facility] records not available at time of consult, [...] she will qualify for fin assistance at [facility] due to just being . Requested [facility] records to review. Order Home Sleep Study, [...] position sleep (when she had the RERAs) 12per AllScripts 13Bilateral 14per pt packet; Patient with A1c of 5.9% 04/2018, has made several lifestyle modifications. Evaluate A1c today per patient requestion. We discussed snacks with increased protein and fiber to decrease hungry and nighttime waking. She is interested in referral to nutrition for further guidance. Procedures Procedure Date Related Diagnosis Body Site Status Colonoscopy 1 06/10/20 Completed Egd/endoscopy 2 06/10/20 Completed Tlh w/t/o 250 g or less 3 04/30/20 Completed Repair of stress incontinenc e by suprapubic sling 09/27/15 Completed Subtotal thyroidectomy 01/26/14 Co mpleted Partial mastectomy 11/26/09 Comple maame Orthopedic surgery 4 09/2009 Comp leted Rhinoseptoplasty 02/26/06 Complete d Endometrial ablation 11/27/99 Comp leted Cholecystectomy 07/27/97 Completed Tubal ligation 02/27/96 Completed 1repeat in 5 yrs due to h/o of colon polyps 2gastritis, esophagitis. 3TLH, BS, USVVS, TVT, cystocele repair 4shoulder/labrum repair 09/2009 Social History Social History Type Response Smoking Status Smoking tobacco use: Never tobacco user;Never 1 entered on: 07/27/21 Sex Female 1How much tobacco do you chew: none What was the date of your most recent tobacco screenin05-25-2021 Note * Jimmie Carrizales: PERFORM Event Display: Event Monitor Authored Date: [id number] CODY FERRARO [id number] Patient placed on Zio Event Monitor 14 dayson 01/03/2022 Patient Care team information Personnel Name: Dina Diaz Address: Address: [facility] [address] [address]- [place]
--- OUTSIDE RECORDS SUMMARY | 2023-10-04 01:01 | XMS_ITS | Continuity of Care Document ---
Author Organization [facility] Address [address] [place] [address] Care Team Providers Care Digital Account Director Name Role Phone Dina Diaz Primary Care Physician Encounter [facility] Date(s): 07/18/23 - 07/18/23 [facility] [address] [place] [address] Discharge Disposition: Home or Self Care Attending [...] and Plan Future Appointments Future Scheduled Tests Radiology* MG Mammo Screening Bilateral w/ Gil 07/04/23 Immunizations Given and Recorded Vaccine Date Status Refusal Reason influenza virus vaccine, inactivated 1 12/27/22 Re corded influenza virus vaccine, inactivated 12/22/21 Give n zoster vaccine, inactivated 2 06/12/22 Recorded influenza virus vaccine, live 11/10/20 Recorded influenza virus vaccine, live 05/01/18 Recorded SARS-CoV-2 (COVID-19) mRNA-1273 vaccine 07/21/20 R ecorded SARS-CoV-2 (COVID-19) mRNA-1273 vaccine 06/21/20 R ecorded measles/mumps/rubella virus vaccine 04/01/14 Recor ded influenza, unspecified formulation 04/01/14 Record ed influenza, unspecified formulation 3 12/31/10 Kal rded influenza, unspecified formulation 4 01/18/10 Kal rded tetanus/diphth/pertuss (Tdap) adult/adol 05/24/13 Recorded Td(adult) unspecified formulation 04/27/10 Recorde d Td(adult) unspecified formulation 04/27/10 Recorde d tetanus immune globulin 06/05/07 Recorded 1Result Comment: betzaida 2Result Comment: betzaida [employer] 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: [employer] 4Result Comment: 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: [employer] Medications acetaminophen 325 mg oral tablet 650 mg = 2 tab, Oral, every 4 hr, PRN other (see comment), as needed, 0 Refill(s) Start Date: 07/08/21 Status: Ordered atorvastatin 20 mg oral tablet 1 tab, Oral, every morning, # 90 tab, 3 Refill(s), Pharmacy: [id number], 165, cm, 02/12/23 14:42:00 EST, Height, 67.75, kg, 02/07/23 10:12:00 EST, Weight Dosing Start Date: 02/24/23 Status: Ordered baclofen 10 mg oral tablet 90 EA, TAKE 1 TABLET BY MOUTH THREE TIMES DAILY NEEDED FOR MILD TO MODERATE HEADACHES - MAX DAILY DOSE 3 TABLETS (30MG), 0 Refill(s) Start Date: 04/06/22 Status: Ordered EPINEPHrine 0.3 mg injectable kit 1 auto, IM, As Directed, PRN other (see comment), as needed, # 1 EA, 0 Refill(s), Pharmacy: [id number], 165.1, cm, 04/26/23 9:23:00 EST, Height, 66.85, kg, 05/22/23 15:26:00 EDT, Weight Dosing Start Date: 06/27/23 Status: Ordered hydrOXYzine hydrochloride 25 mg oral tablet 25 mg = 1 tab, Oral, As Directed, PRN insomnia/anxiety, take 1 tab at bedtime prn, # 90 tab, 1 Refill(s), 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, 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: [id number], 165.1, cm, 04/26/23 9:23:00 EST, Height, 66.22, kg, 04/26/23 9:24:00 EST, Weight Dosing Start Date: 04/26/23 Stop Date: 04/26/24 Status: Ordered ketorolac See Instructions, PRN, 0 Refill(s) Start Date: 09/16/22 Status: Ordered nebulizer machine nebulizer machine, use nebulizer 3-4X/day for dyspnea, wheezing and cough, Supply, See instructions, # 1 EA, 0 Refill(s) Start Date: 02/07/23 Status: Ordered Nurtec ODT 75 mg oral tablet, disintegrating 0 Refill(s) Start Date: 08/16/22 Status: Ordered prochlorperazine 10 mg oral tablet 10 mg = 1 tab, Oral, every 8 hr, PRN other (see comment), as needed per [facility] [place] [facility] Start Date: 07/08/21 Status: Ordered Ubrelvy 100 [...] Cataplexy and narcolepsy 3 Confirmed 01/07/20 Active Narcolepsy with cataplexy Confirmed Active Cobalamin deficiency Confirmed 05/07/15 Active Community acquired pneumonia Confirmed Active Daytime somnolence 4 Confirmed Active Degeneration of lumbar intervertebral disc Confirmed 1/30/15 Active Female stress incontinence Confirmed 01/08/15 Active [...] meds as of . Lamictal 100mg BID. Kurten ER 450mg 1 1/2 tabs qhs. cymbalta 60mg. Zalephon for sleep. Has seen Dr. Singer at [facility]. 3From 06-12-2020 visit: 12/03/19: New diagnosis of narcolepsy [...] prior to sleep studies. [facility] Medications trialed and unable to tolerate TCAs, duloxetine, gabapentin, lyrica, cyclobenzaprine. She has seen rheumatology . 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 We discussed trial of naltrexone for her chronic pain. Naltrexone 1-4.5 mg qd. Would need to send rx to compounding pharmacy in [place]. Reviewed MOA, side effects. She would also like to get involved in resistance band training. >50% of this 40 minute appointment was spent in face to face counseling. [facility] visit: S/P LT partial thyroidectomy. TSH annually. She is not on thyroid replacement. [facility] visit: Has been on atorvastatin 20 mg qd since 10/2019. She is tolerating well. Repeat FLP and CMP. 8suspect to be due to narcolepsy with cataplexy [facility] consultation 01/07/21 with additional imaging, BI-RADS: 3, [...] back position sleep From 05-19-2020 visit: 07/31/18: [facility] [place] not available at time of [...] she will qualify for fin assistance at [facility] due to just being . Requested [facility] [place] to [place]. Order Home Sleep [...] USVVS, TVT, cystocele repair 5shoulder/labrum repair 09/2009 Results Laboratory List Name Date Automated Diff 07/18/23 CBC w/ Diff 07/18/23 Comprehensive Metabolic Panel (CMP) 07/17 Most recent to oldest [Reference Range]: 1 WBC [5.0-10.0 x10^3/mcL] 8.3 x10^3/mcL (07/18/23 12:03 PM) RBC [4.1-5.3 x10^6/mcL] 4.2 x10^6/mcL (07/18/23 12:03 PM) Neutro Auto [40.0-75.0 %] 49.8 % (07/18/23 12:03 PM) Lymph Auto [20.0-50.0 %] 35.8 % (07/18/23 12: PM) Caswell Auto [2.0-15.0 %] 8.8 % (07/18/23: PM) Basophil Auto [0.0-1.0 %] 0.7 % (07/18/23: PM) BUN [7-18 mg/dL] 28 mg/dL *HI* (07/18/23 PM) Glucose Level [74-106 mg/dL] 68 mg/dL *LOW* (07/18/23 PM) Potassium Level [3.5-5.1 mmol/L] 4.2 mmo l/L (07/18/23 PM) MCV [80.0-96.0 fL] 91.2 fL (07/18/23 PM) AST [15-37 unit/L] 11 unit/L *LOW* (07/18/23 PM) ALT [14-59 unit/L] 25 unit/L (07/18/23 PM) MCHC [31.0-35.0 g/dL] 32.5 g/dL (07/18/23 PM) Sodium Level [136-145 mmol/L] 139 mmol/L (07/18/23 PM) Hct [37.0-47.0 %] 38.5 % (07/18/23 PM) Calcium Level [8.5-10.1 mg/dL] 9.1 mg/dL (07/18/23 PM) Albumin Level [3.4-5.0 g/dL] 3.9 g/dL (07/18/23:03 PM) Protein Total [6.4-8.2 g/dL] 6.9 g/dL (07/18/23 PM) MCH [26.0-32.0 pg] 29.6 pg (07/18/23: PM) Neutro Absolute 4.1 x10^3/mcL *NA* (07/18/23: PM) Bilirubin Total [0.2-1.0 mg/dL] 0.3 mg/d L (5/21/24 12:03 PM) Hgb [12.0-16.0 g/dL] 12.5 g/dL (07/18/23 12:03 PM) Alk Phos [46-146 unit/L] 105 unit/L (07/18/23 12:03 PM) Platelets [130-450 x10^3/mcL] 326 x10^3/ mcL (07/18/23 12:03 PM) CO2 [21-32 mmol/L] 28 mmol/L (07/18/23 12:03 PM) eGFR Non-AA [>=60] 107 (07/18/23 12:03 PM) eGFR AA [>=60] 107 (07/18/23 12:03 PM) Chloride Level [98-107 mmol/L] 102 mmol/ L (07/18/23 12:03 PM) RDW-CV [11.5-14.5 %] 14.2 % (07/18/23 12:03 PM) Imm Gran Auto [0.0-0.9 %] 0.2 % (07/18/23 12:03 PM) Creatinine Level [0.55-1.02 mg/dL] 0.63 mg/dL (07/18/23 12:03 PM) Eos, Auto [1.0-6.0 %] 4.7 % (07/18/23 12:03 PM) Social History Social History Type Response Smoking Status Smoking tobacco use: Never tobacco user;Never 1 entered on: 08/16/22 Sex Female 1How much tobacco do you chew: none What was the date of your most recent tobacco screenin05-25-2021 Patient Care team information Care Team Personnel Name: Dina Diaz Position: Physician Member Role: Informed Provider Address: Address: [facility] [address] [address]- Care Team Related Persons Name: EMY COBOS Address: Home [address] [place] [phone] Name: EMY COBOS Address: Home [address] [facility] [phone]
--- OUTSIDE RECORDS SUMMARY | 2023-10-04 01:01 | XMS_ITS | Continuity of Care Document ---
Author Organization [facility] Address [address] [place] [address] Care Team Providers Care Jinriksha Driver Name Role Phone Dina Diaz Primary Care Physician [phone] Encounter [facility] Date(s): 02/19/22 - 02/19/22 [facility] [address] [place] [address] Encounter Diagnosis Back pain(Discharge Diagnosis) - 02/19/22 Discharge Disposition: Home or Self Care Attending Physician: Cheryl Roy MD Admitting Physician: Cheryl Roy MD Allergies, Adverse Reactions, Alerts Substance Reaction Severity Status SOY Unknown Active WHEAT Unknown Active SHELLFISH DERIVED Anaphylactic reaction Severe A ctive codeine Unknown Active amitriptyline Unknown Active morphine Unknown Active oxyCODONE Unknown Active ARIPiprazole Unknown Active dilTIAZem Depression Chest pain Moderate Active TREE AND SHRUB POLLEN 1 Unknown Acti ve metoprolol 2 Depression Unknown Active modafinil 3 runny nose Difficulty swallowing Other Unknown Active armodafinil 4 Other Unknown Active Peanuts Unknown Active Latex 5 no reaction Unknown Active 1per AllScripts 2depression 3Excessive runny nose and hard to swallow. 4Excessive runny nose and hard to swallow. 5immunotherapy Assessment and Plan Future Appointments Future Scheduled Tests Laboratory* Lipid Panel 07/13/21 Radiology* MRI Shoulder w/o Contrast Left 09/01/21 * MG Mammo Diagnostic Left w/ Gil 09/21/21 Functional Status 02/19/22 Other exposure to Infectious Disease Non e Immunizations Given and Recorded Vaccine Date Status [...] morning, # 90 EA, 3 Refill(s), Pharmacy: [id number], 165, cm,08/14/21 10:33:00 EDT, Height/Length Dosing, 56, kg, 08/14/21 10:33:00 EDT, Weight Dosing Start Date: 11/25/21 Status: Ordered buPROPion 300 mg/24 hours (XL) oral tablet, extended release 300 mg = 1 tab, Oral, every morning, # 30 tab, 2 Refill(s), Pharmacy: [id number], 165, cm, 08/14/21 10:33:00 EDT, Height/Length Dosing, 56, kg, 08/14/21 10:33:00 EDT, Weight Dosing Start Date: 02/11/22 Stop Date: 05/12/22 Status: Ordered Corlanor 5 mg oral tablet See Instructions, TAKE 1/2 (ONE-HALF) TABLET BY MOUTH TWICE DAILY WITH MEALS, # 30 EA, 3 Refill(s),Pharmacy: [id number], 165, cm, 08/14/21 10:33:00 EDT, Height/Length Dosing, 56, kg, 08/14/21 10:33:00 EDT, Weight Dosing Start Date: 02/01/22 Status: Ordered cyclobenzaprine 10 mg oral tablet 10 mg = 1 tab, Oral, TID, PRN as needed for spasm, X 10 days, # 30 tab, 0 Refill(s), 03/01/22 10:19:00 EST, Pharmacy: [id number], 165, cm, 02/19/22 9:21:00 EST, Height/Length Dosing, 58, kg, 02/19/22 9:21:00 EST, Weight Dosing Start Date: 02/19/22 Stop Date: 03/01/22 Status: Ordered cyclobenzaprine 5 mg oral tablet See Instructions, Take 1-2 tablets every 8 hours as needed for muscle spasm, # 30 tab, 0 Refill(s),Pharmacy: [id number], 165, cm, 08/14/21 10:33:00 EDT, Height/Length Dosing, 56, kg, 08/14/21 10:33:00 EDT, Weight Dosing Start Date: 01/11/22 Status: Ordered EPINEPHrine 0.3 mg injectable kit [...] PRN other (see comment), as needed per [facility] headache clinic Start Date: 07/08/21 Status: Ordered [...] MG) Start Date: 08/26/21 Status: Ordered vilazodone 10 mg oral tablet 10 mg = 1 tab, Oral, Daily, Step I, # 7 tab, 0 Refill(s), Pharmacy: [id number], 165, cm,08/14/21 10:33:00 EDT, Height/Length Dosing, 56, kg, 08/14/21 10:33:00 EDT, Weight Dosing Start Date: 01/17/22 Stop Date: 01/24/22 Status: Ordered vilazodone 20 mg oral tablet 20 mg = 1 tab, Oral, Daily, Step II, # 30 tab, 2 Refill(s), Pharmacy: [id number], 165, cm, 08/14/21 10:33:00 EDT, Height/Length Dosing, 56, kg, 08/14/21 10:33:00 EDT, Weight Dosing Start Date: 01/17/22 Stop Date: 04/17/22 Status: Ordered Problem List Condition Confirmation Course [...] to trees, weeds, grasses, dust mite, dogs/cats 2From 06-12-2020 visit: 12/03/19: New diagnosis of narcolepsy [...] [facility]: timeline: ESS always [...] prior to sleep studies. see narcolepsy [facility]: Medications trialed and unable to tolerate TCAs, duloxetine, gabapentin, lyrica, cyclobenzaprine. She has seen rheumatology . She cannot proceed with comprehensive pain program as she works [employer] at [employer]. We discussed trial of naltrexone for her chronic pain. Naltrexone 1-4.5 mg qd. Would need to send rx to compounding pharmacy in [place]. Reviewed MOA, side effects. She would also like to get involved in resistance band training. >50% of this 40 minute appointment was spent in face to face counseling. [facility]: S/P LT partial thyroidectomy. TSH annually. She is not on thyroid replacement. [facility] visit: Has been on atorvastatin 20 mg qd since 10/2019. She is tolerating well. Repeat FLP and CMP. 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 Requested [facility] records to review. Order Home Sleep Study, [...] USVVS, TVT, cystocele repair 4shoulder/labrum repair 09/2009 Vital Signs Most recent to oldest [Reference Range]: 1 Temperature Temporal Artery [36-38 Deg C ] 36.3 Deg C (02/19/22 9:14 AM) Peripheral Pulse Rate [60-100 bpm] 93 bp m (02/19/22 9:14 AM) Respiratory Rate [12-24 br/min] 20 br/mi n (02/19/22 9:14 AM) Blood Pressure [90-140/60-90 mmHg] 106/6 8mmHg (02/19/22 9:14 AM) Weight Dosing 58.00 kg (02/19/22 9:21 AM) Weight Estimated 58.00 kg (02/19/22 9:14 AM) Height/Length Dosing 165.000 cm (02/19/22 9:21 AM) Height/Length Estimated 165.000 cm (02/19/22 9:14 AM) Social History Social History Type Response Smoking Status Smoking tobacco use: Never tobacco user;Never 1 entered on: 07/27/21 Sex Female 1How much tobacco do you chew: none What was the date of your most recent tobacco screenin05-25-2021 Hospital Discharge Instructions Patient Education 02/19/2022 09:19:48 Acute Back Pain, Adult Acute Back Pain, Adult Acute back pain is sudden and usually short-lived. It is often caused by an injury to the muscles and tissues in the back. The injury may result from: ??? A muscle, tendon, or ligament getting overstretched or torn. Ligaments are tissues that connectbones to each other. Lifting something improperly can cause a back strain. ??? Wear and tear (degeneration) of the spinal disks. Spinal disks are circular tissue that providecushioning between the bones of the spine (vertebrae). ??? Twisting motions, such as while playing sports or doing yard work. ??? A hit to the back. ??? Arthritis. You may have a physical exam, lab tests, and imaging tests to find the cause of your pain. Acute back pain usually goes away with rest and home care. Follow these instructions at home: Managing pain, stiffness, and swelling ??? Take anfk-tgp-wlnoayc and prescription medicines only as told by your health care provider. Treatment may include medicines for pain and inflammation that are taken by mouth or applied to the skin, or muscle relaxants. ??? Your health care provider may recommend applying ice during the first 24???48 hours after your pain starts. To do this: ??? Put ice in a plastic bag. ??? Place a towel between your skin and the bag. ??? Leave the ice on for 20 minutes, 2???3 times a day. ??? Remove the ice if your skin turns bright red. This is very important. If you cannot feel pain, heat, or cold, you have a greater risk of damage to the area. ??? If directed, apply heat to the affected area as often as told by your health care provider. Usethe heat source that your health care provider recommends, such as a moist heat pack or a heating pad. ??? Place a towel between your skin and the heat source. ??? Leave the heat on for 20???30 minutes. ??? Remove the heat if your skin turns bright red. This is especially important if you are unable to feel pain, heat, or cold. You have a greater risk of getting burned. Activity ??? Do not stay in bed. Staying in bed for more than 1???2 days can delay your recovery. ??? Sit up and stand up straight. Avoid leaning forward when you sit or hunching over when you stand. ??? If you work at a desk, sit close to it so you do not need to lean over. Keep your chin tucked in. Keep your neck drawn back, and keep your elbows bent at a 90-degree angle (right angle). ??? Sit high and close to the steering wheel when you drive. Add lower back (lumbar) support to your car seat, if needed. ??? Take short walks on even surfaces as soon as you are able. Try to increase the length of time you walk each day. ??? Do not sit, drive, or commercial singer one place for more than 30 minutes at a time. Sitting or standing for long periods of time can put stress on your back. ??? Do not drive or use heavy machinery while taking prescription pain medicine. ??? Use proper lifting techniques. When you bend and lift, use positions that put less stress on your back: ??? Bend your knees. ??? Keep the load close to your body. ??? Avoid twisting. ??? Exercise regularly as told by your health care provider. Exercising helps your back heal fasterand helps prevent back injuries by keeping muscles strong and flexible. ??? Work with a physical therapist to make a safe exercise program, as recommended by your health care provider. Do any exercises as told by your physical therapist. Lifestyle ??? Maintain a healthy weight. Extra weight puts stress on your back and makes it difficult to havegood posture. ??? Avoid activities or situations that make you feel anxious or stressed. Stress and anxiety increase muscle tension and can make back pain worse. Learn ways to manage anxiety and stress, such as through exercise. General instructions ??? Sleep on a firm mattress in a comfortable position. Try lying on your side with your knees slightly bent. If you lie on your back, put a pillow under your knees. ??? Keep your head and neck in a straight line with your spine (neutral position) when using electronic equipment like smartphones or pads. To do this: ??? Raise your smartphone or pad to look at it instead of bending your head or neck to look down. ??? Put the smartphone or pad at the level of your face while looking at the screen. ??? Follow your treatment plan as told by your health care provider. This may include: ??? Cognitive or behavioral therapy. ??? Acupuncture or massage therapy. ??? Meditation or yoga. Contact a health care provider if: ??? You have pain that is not relieved with rest or medicine. ??? You have increasing pain going down into your legs or buttocks. ??? Your pain does not improve after 2 weeks. ??? You have pain at night. ??? You lose weight without trying. ??? You have a fever or chills. ??? You develop nausea or vomiting. ??? You develop abdominal pain. Get help right away if: ??? You develop new bowel or bladder control problems. ??? You have unusual weakness or numbness in your arms or legs. ??? You feel faint. These symptoms may represent a serious problem that is an emergency. Do not wait to see if the symptoms will go away. Get medical help right away. Call your local emergency services (911 in the [place] Do not drive yourself to the hospital. Summary ??? Acute back pain is sudden and usually short-lived. ??? Use proper lifting techniques. When you bend and lift, use positions that put less stress on your back. ??? Take slsh-bhz-qnfyouk and prescription medicines only as told by your health care provider, andapply heat or ice as told. This information is not intended to replace advice given to you by your health care provider. Make sure you discuss any questions you have with your health care provider. Document Revised: 05/07/2021 Document Reviewed: 05/07/2021 [employer] Patient Education ?? 2021 [employer]. Follow Up Care 02/19/2022 09:14:15 With:Follow up with primary care provider Address: When:1 to 2 weeks Physician Emergency department Note * Cheryl Roy MD: PERFORM Event Display: ED Note Physician Authored Date: [id number] CODY FERRARO :1970 Age:51 years Sex:Female Visit Date:02/19/2022 Primary Care Physician: Dina Diaz Basic Information Time Seen: Cheryl Roy MD / 02/19/2022 09:25 Chief Complaint back injury working at [employer] a few days ago, ??was pushing/pulling, pain radiates down right leg History Of Present Illness: Reports on ??she had to move a pallet at [facility] where she works to get??part of a customer's order out of the freezer and then was the palate back??she states she started having pain yesterday and has had worsening pain today.?? Patient has tried Biofreeze??she was taken two??arthritis Tylenol??and 2 vmkf-pej-degxpqi ibuprofen this morning??without relief she says she has significant pain.?? Patient reports about 10 years ago she had back pain??that was??different than today she does say that??Ultram and??Flexeril has helped some however she did not like the effects??of the Ultram and Flexeril does make her??short.?? No fever no chills??no??unintentional weight loss no bowel or blad lexy incontinence??no weakness??no tingling no numbness. ??Patient does state that she has a historyof cervical stenosis. Review of Systems: see hpi for ros Physical Exam Vitals & Measurements T:??36.3?C ??(Temporal Artery)?? HR:??93??(Peripheral)?? RR:??20?? BP:??106/68?? SpO2:??100%?? HT:??165.000??cm?? WT:??58.00??kg??(Estimated)?? Pain Score:??9?? O2 Therapy:??Room air?? General: Alert and oriented, well nourished,?No??acute distress Eye: PER,?Normal??conjunctiva, No scleral icterus HENT: Normocephalic?Normal?? hearing?? Respiratory:??Respiration??no distress??no increased work of breathing Heart:??no??edema Chest: wall excursion wnl no abnormal movements no obvious deformities Back:??Positive vertebral tenderness from cervical through??sacral area??as well as??reported tenderness to muscle paraspinals throughout Seated??straight leg raise??patient unable to fully extend??left knee due to tightness of quadriceps??and she states it also hurt her back??patient also reported back pain??on??extension of right knee??deep tendon reflexes are 2??for patella and Achilles??strength is a 5 out of 5 for??hip flexion extension knee flexion extension??except for??right hip flexion due to pain. ??Gait steady Musculoskeletal:?Normal?? range of motion and strength,?No??tenderness,?No??swelling Skin: Skin is warm, dry and pink,?No??rashes,?No??lesions Neurologic: Awake, alert and oriented X4 Psychiatric: Cooperative, appropriate mood and affect Medical Decision Making: For MDM please see under assessment and plan Procedure No Qualifying Data Assessment/Plan 1.??Back pain??M54.9 Patient with diffuse back pain??started after moving things at work??a prescription for Flexeril issent to the pharmacy for the patient??patient will maximize ibuprofen and Tylenol.?? Ibuprofen 800 mg is given here in the emergency department??patient can take 800 every 8 hours as needed.?? Lidocaine patch is applied.?? A physical therapy prescription is filled out for patient and patient is to call Monday to??schedule follow-up with primary care and with??physical therapy. ??A note for work is written for no work until??cleared by primary care to return. Ordered: cyclobenzaprine 10 mg oral tablet, 10 mg = 1 tab, Oral, TID, PRN as needed for spasm, X 10 days, # 30 tab, 0 Refill(s), 03/01/22 10:19:00 EST, Pharmacy: [id number], 165, cm, 02/19/22 9:21:00 EST, Height/Length Dosing, 58, kg, 02/19/22 9:21:00 EST, Weight Dosing Discharge Patient, 02/19/22 10:19:00 EST, Home Independently, Constant Indicator ?? Orders: ibuprofen, 800 mg = 4 tab, Oral, Tab, Once, First Dose: 12/24/22 10:08:00 EST, Stop Date: 02/19/22 10:08:00 EST, Physician Stop, STAT lidocaine 5% topical film, 1 patches, Topical, Film, Once, First Dose: 02/19/22 10:18:00 EST, Stop Date: 02/19/22 10:18:00 EST, Physician Stop, STAT Patient Education Acute Back Pain, Adult Follow Up With When Contact Information Follow up with primary care provider Within 1 to 2 weeks Additional Instructions: Medication Reconciliation Changed cyclobenzaprine (cyclobenzaprine 10 mg oral tablet)1 tab Oral (given by mouth) 3 times a day as needed as needed for spasm for 10 Days. Refills: 0. ?? cyclobenzaprine (cyclobenzaprine 5 mg oral tablet)Take 1-2 tablets every 8 hours as needed for muscle spasm. Refills: 0. ?? Unchanged acetaminophen (acetaminophen 325 mg oral tablet)2 tab Oral (given by mouth) every 4 hours as neededother (see comment). as needed. ?? atorvastatin (atorvastatin 20 mg oral tablet)1 tab Oral (given by mouth) every morning. Refills: 3. ?? buPROPion (buPROPion 300 mg/24 hours (XL) oral tablet, extended release)1 tab Oral (given by mouth)every morning for 30 Days. Refills: 2. ?? EPINEPHrine (EPINEPHrine 0.3 mg injectable kit)1 auto Intramuscular (in a muscle) As Directed as needed other (see comment). as needed. ?? erenumab (Aimovig SureClick Autoinjector 70 mg/mL subcutaneous solution)70 Milligrams Subcutaneous (under the skin) once a month. ?? ibuprofen (ibuprofen 200 mg oral capsule)3 Capsules Oral (given by mouth) As Directed. every 6 - 8 hours. ?? ivabradine (Corlanor 5 mg oral tablet)TAKE 1/2 (ONE-HALF) TABLET BY MOUTH TWICE DAILY WITH MEALS. Refills: 3. ?? prochlorperazine (prochlorperazine 10 mg oral tablet)1 tab Oral (given by mouth) every 8 hours as needed other (see comment). as needed per [facility] headache clinic. ?? traZODone (traZODone 100 mg oral tablet)1 tab Oral (given by mouth) every night at bedtime. ?? ubrogepant (Ubrelvy 100 mg oral tablet)TAKE 1 TABLET BY MOUTH NEEDED (TAKE AT ONSET OF MIGRAIN, CAN REPEAT DOSE IN 2 HOURS, MAX DOSE OF 200 MG). ?? vilazodone (vilazodone 10 mg oral tablet)1 tab Oral (given by mouth) every day for 7 Days. Step I. Refills: 0. ?? vilazodone (vilazodone 20 mg oral tablet)1 tab Oral (given by mouth) every day for 30 Days. Step II. Refills: 2. Problem List/Past Medical History Ongoing Abnormal cervical Papanicolaou smear Allergic rhinitis Anaphylaxis Anxiety Arthritis Bilateral knee pain Borderline personality disorder Cataplexy and narcolepsy Daytime somnolence Fibromyalgia History of subtotal thyroidectomy Human papilloma virus infection Hyperlipidemia Hypothyroidism Incomplete bladder emptying Injury of left shoulder Insomnia Low back pain Mammography abnormal Migraine Morbid obesity Neuropathy Obstructive sleep apnea syndrome Partial mastectomy Posttraumatic stress disorder Prediabetes Tachycardia Historical Severe recurrent major depression Procedure/Surgical History ???Colonoscopy (06/11/2020)???Egd/endoscopy (06/11/2020)???Tlh w/t/o 250 g or less (05/01/2020)???Repair of stress incontinence by suprapubic sling (09/28/2015)???Subtotal thyroidectomy (01/27/2014)???Partial mastectomy (11/27/2009)???Orthopedic surgery (09/2009)???Rhinoseptoplasty (02/27/2006)???En dometrial ablation (11/28/1999)???Cholecystectomy (07/28/1997)???Tubal ligation (02/28/1996) Allergies SHELLFISH DERIVED??(Anaphylactic reaction) dilTIAZem??(Depression, Chest pain) ARIPiprazole Latex??(no reaction) Peanuts SOY TREE AND SHRUB POLLEN WHEAT amitriptyline armodafinil??(Other) codeine metoprolol??(Depression) modafinil??(runny nose, Difficulty swallowing, Other) morphine oxyCODONE Social History Alcohol Current- Comments: Rarely Electronic Cigarette/Vaping Electronic Cigarette Use: Never. Employment/School Work/School description: [employer]. Home/Environment Lives with Mother. Nutrition/Health Diet: Regular. Caffeine intake amount: 2 cups coffee daily. Psychosocial Substance Use Past, Marijuana Tobacco Never tobacco user Tobacco Use:. Never Smokeless Tobacco use:.- Comments: How much tobacco do you chew: none What was the date of your most recent tobacco screenin05-25-2021 Family History Alzheimer's disease: Mother and Grandmother (M). Asthma: Sister. Cerebral hemorrhage: Father. Depressive disorder: Son. Diabetes mellitus: Father and Grandmother (P). Heart disease: Mother and Grandmother (M). Hypercholesterolemia: Mother. Mitral valve prolapse: Mother. Rheumatoid arthritis: Sister. Electronically Signed on 02/19/22 10:31 AM Cheryl Roy MD Emergency department Discharge instructions * Cheryl Roy MD: PERFORM Event Display: ED Discharge Information Authored Date: [id number] CODY FERRARO :1970 Age:51 years Sex:Female Visit Date:02/19/2022 Primary Care Physician: Dina Diaz Discharge Instructions We would like to thank you for allowing us to assist you with your healthcare needs. The following includes patient education materials and information regarding your injury/illness. Diagnosis from Today's Visit Back pain Discharge Vitals Temperature??(Temporal Artery) 97.3 ??F (36.3 ??C) Heart Rate??(Peripheral) 93 Respiratory Rate?? 20 Blood Pressure?? 106/68?? Height?? 64.96 in (165.000 cm) Weight??(Estimated) 127.89 lb (58.00 kg) Allergies SHELLFISH DERIVED??(Anaphylactic reaction) dilTIAZem??(Depression, Chest pain) ARIPiprazole Latex??(no reaction) Peanuts SOY TREE AND SHRUB POLLEN WHEAT amitriptyline armodafinil??(Other) codeine metoprolol??(Depression) modafinil??(runny nose, Difficulty swallowing, Other) morphine oxyCODONE What to Do Next Instructions from Your Care Team You may take up to 800 mg of Motrin, Advil??(ibuprofen)??every 8 hours as needed for pain or discomfort??and or??up to??1000 mg??of Tylenol??(acetaminophen) every 6 hours as needed??for pain or discomfort for maximum 4000 mg in 24 hours or you may permanently hurt your liver. You may continue with heat or ice??to see if this is helpful for your pain.?? Try gentle stretching.?? Call physical therapy on Monday to see how soon they can see you. You??May use a lidocaine patch for 12 hours in 24 hours. You may take Flexeril (cyclobenzaprine) 10 mg 3 times a day??as needed You Need to Schedule the Following Appointments Follow Up with??Follow up with primary care provider When:??Within 1 to 2 weeks Upcoming Scheduled Appointments Monday. 2022 3:45 PM EST ?? 2022 10:40 AM EDT ?? You were treated today on an emergency basis; it may be green to contact your primary care provider to notify them of your visit today. You may have been referred to your regular doctor or a specialist, please follow up as instructed. If your condition worsens or you can't get in to see the doctor, contact the Emergency Department. Medications What How Much When Why Instructions Next Dose Changed cyclobenzaprine (cyclobenzaprine 10 mg oral tablet) 1 tab Oral (given by mouth) 3 times a day as needed for as needed for spasm Back pain Duration: 10 Days Pickup at [id number] Changed cyclobenzaprine (cyclobenzaprine 5 mg oral tablet) See instructions Low back pain Take 1-2 tablets every 8 hours as needed for muscle spasm ?? Unchanged acetaminophen (acetaminophen 325 mg oral tablet) 2 tab Oral (given by mouth) Every 4 hours as needed for other (see comment) as needed ?? Unchanged atorvastatin (atorvastatin 20 mg oral tablet) 1 tab Oral (given by mouth) Every morning Unchanged buPROPion (buPROPion 300 mg/ 24 hours (XL) oral tablet, extended release) 1 tab Oral (given by mouth) Every morning Mild recurrent major depression Anxiety Posttraumatic stress disorder Duration: 30 Days Unchanged EPINEPHrine (EPINEPHrine 0.3 mg injectable kit) 1 auto Intramuscular (in a muscle) As Directed as needed for other (see comment) as needed ?? Unchanged erenumab (Aimovig SureClick Autoinjector 70 mg/ mL subcutaneous solution) 70 Milligrams Subcutaneous (under the skin) Once a month Unchanged ibuprofen (ibuprofen 200 mg oral capsule) 3 Capsules Oral (given by mouth) As Directed every 6 - 8 hours ?? Unchanged ivabradine (Corlanor 5 mg oral tablet) See instructions TAKE 1/ 2 (ONE-HALF) TABLET BY MOUTH TWICE DAILY WITH MEALS ?? Unchanged prochlorperazine (prochlorperazine 10 mg oral tablet) 1 tab Oral (given by mouth) Every 8 hours as needed for other (see comment) as needed per [facility] headache clinic ?? Unchanged traZODone (traZODone 100 mg oral tablet) 1 tab Oral (given by mouth) Every night at bedtime Unchanged ubrogepant (Ubrelvy 100 mg oral tablet) See instructions TAKE 1 TABLET BY MOUTH NEEDED (TAKE AT ONSET OF MIGRAIN, CAN REPEAT DOSE IN 2 HOURS, MAX DOSE OF200 MG) ?? Unchanged vilazodone (vilazodone 10 mg oral tablet) 1 tab Oral (given by mouth) Every day Recurrent moderate major depressive disorder with anxiety Anxiety Posttraumatic stress disorder Duration: 7 Days Step I ?? Unchanged vilazodone (vilazodone 20 mg oral tablet) 1 tab Oral (given by mouth) Every day Recurrent moderate major depressive disorder with anxiety Anxiety Posttraumatic stress disorder Duration: 30 Days Step II ?? Pharmacy Information [facility]: [address] [phone] Education Materials Acute Back Pain, Adult Acute back pain is sudden and usually short-lived. It is often caused by an injury to the muscles and tissues in the back. The injury may result from: ? A muscle, tendon, or ligament getting overstretched or torn. Ligaments are tissues that connect bones to each other. Lifting something improperly can cause a back strain. ? Wear and tear (degeneration) of the spinal disks. Spinal disks are circular tissue that provide cushioning between the bones of the spine (vertebrae). ? Twisting motions, such as while playing sports or doing yard work. ? A hit to the back. ? Arthritis. You may have a physical exam, lab tests, and imaging tests to find the cause of your pain. Acute back pain usually goes away with rest and home care. Follow these instructions at home: Managing pain, stiffness, and swelling ? Take opcu-vby-szlpsvm and prescription medicines only as told by your health care provider. Treatment may include medicines for pain and inflammation that are taken by mouth or applied to the skin, or muscle relaxants. ? Your health care provider may recommend applying ice during the first 24???48 hours after your painstarts. To do this: ? Put ice in a plastic bag. ? Place a towel between your skin and the bag. ? Leave the ice on for 20 minutes, 2???3 times a day. ? Remove the ice if your skin turns bright red. This is very important. If you cannot feel pain, heat, or cold, you have a greater risk of damage to the area. ? If directed, apply heat to the affected area as often as told by your health care provider. Use theheat source that your health care provider recommends, such as a moist heat pack or a heating pad. ? Place a towel between your skin and the heat source. ? Leave the heat on for 20???30 minutes. ? Remove the heat if your skin turns bright red. This is especially important if you are unable to feel pain, heat, or cold. You have a greater risk of getting burned. Activity ? Do not stay in bed. Staying in bed for more than 1???2 days can delay your recovery. ? Sit up and stand up straight. Avoid leaning forward when you sit or hunching over when you stand. ? If you work at a desk, sit close to it so you do not need to lean over. Keep your chin tucked in. Keep your neck drawn back, and keep your elbows bent at a 90-degree angle (right angle). ? Sit high and close to the steering wheel when you drive. Add lower back (lumbar) support to your car seat, if needed. ? Take short walks on even surfaces as soon as you are able. Try to increase the length of time you walk each day. ? Do not sit, drive, or commercial singer one place for more than 30 minutes at a time. Sitting or standing for long periods of time can put stress on your back. ? Do not drive or use heavy machinery while taking prescription pain medicine. ? Use proper lifting techniques. When you bend and lift, use positions that put less stress on your back: ? Bend your knees. ? Keep the load close to your body. ? Avoid twisting. ? Exercise regularly as told by your health care provider. Exercising helps your back heal faster andhelps prevent back injuries by keeping muscles strong and flexible. ? Work with a physical therapist to make a safe exercise program, as recommended by your health care provider. Do any exercises as told by your physical therapist. Lifestyle ? Maintain a healthy weight. Extra weight puts stress on your back and makes it difficult to have good posture. ? Avoid activities or situations that make you feel anxious or stressed. Stress and anxiety increase muscle tension and can make back pain worse. Learn ways to manage anxiety and stress, such as through exercise. General instructions ? Sleep on a firm mattress in a comfortable position. Try lying on your side with your knees slightlybent. If you lie on your back, put a pillow under your knees. ? Keep your head and neck in a straight line with your spine (neutral position) when using electronicequipment like smartphones or pads. To do this: ? Raise your smartphone or pad to look at it instead of bending your head or neck to look down. ? Put the smartphone or pad at the level of your face while looking at the screen. ? Follow your treatment plan as told by your health care provider. This may include: ? Cognitive or behavioral therapy. ? Acupuncture or massage therapy. ? Meditation or yoga. Contact a health care provider if: ? You have pain that is not relieved with rest or medicine. ? You have increasing pain going down into your legs or buttocks. ? Your pain does not improve after 2 weeks. ? You have pain at night. ? You lose weight without trying. ? You have a fever or chills. ? You develop nausea or vomiting. ? You develop abdominal pain. Get help right away if: ? You develop new bowel or bladder control problems. ? You have unusual weakness or numbness in your arms or legs. ? You feel faint. These symptoms may represent a serious problem that is an emergency. Do not wait to see if the symptoms will go away. Get medical help right away. Call your local emergency services (911 in the [place] Do not drive yourself to the hospital. Summary ? Acute back pain is sudden and usually short-lived. ? Use proper lifting techniques. When you bend and lift, use positions that put less stress on your back. ? Take avpt-auo-ksbswec and prescription medicines only as told by your health care provider, and apply heat or ice as told. This information is not intended to replace advice given to you by your health care provider. Make sure you discuss any questions you have with your health care provider. Document Revised: 05/07/2021 Document Reviewed: 05/07/2021 ElseGeorgina Goodman Patient Education ?? 2021 [employer] Patient/Podiatric Medicine Professor Signature Patient Name:CODY FERRARO I have received this information and my questions have been answered. Patient/Podiatric Medicine Professor Name: Patient/Podiatric Medicine Professor Signature: Relationship to Patient: Witness Name/Signature: Date: Electronically Signed on: 02/19/2022 10:22 ESTSigned by:[facility] Emergency department Note * Rahel Diaz: PERFORM Event Display: ED Notes Authored Date: * Rahel Diaz: PERFORM Event Display: ED Notes Authored Date: [id number] * Rahel Diaz: PERFORM Event Display: ED Notes Authored Date: [id number] Patient Care team information Personnel Name: Dina Diaz Address: Address: [facility] [address]
--- OUTSIDE RECORDS SUMMARY | 2023-10-04 01:01 | XMS_ITS | Continuity of Care Document ---
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: [employer] Medications acetaminophen 325 mg oral tablet 650 mg = 2 tab, Oral, every 4 hr, PRN other (see comment), as needed, 0 Refill(s) Start Date: 07/08/21 Status: Ordered atorvastatin 20 mg oral tablet 1 tab, Oral, every morning, # 90 tab, 3 Refill(s), Pharmacy: [facility], 165, cm, 02/12/23 14:42:00 EST, [...] needed, # 1 EA, 0 Refill(s), Pharmacy: [facility], 165.1, cm, 04/26/23 9:23:00 EST, Height, 66.85, kg, 05/22/23 15:26:00 EDT, Weight Dosing Start Date: 06/27/23 Status: Ordered hydrOXYzine hydrochloride 25 mg oral tablet 25 mg = 1 tab, Oral, As Directed, PRN insomnia/anxiety, take 1 tab at bedtime prn, # 90 tab, 1 Refill(s), 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 Lamictal 100mg BID. [place] ER 450mg 1 / tabs qhs. cymbalta 60mg. Zalephon for sleep. Has seen Dr. Singer at [facility]. 3From 06-12-2020 visit: 12/03/19: New diagnosis of [...] prior to sleep studies. see narcolepsy section [facility] 12-14-2020 visit: Medications trialed and unable to tolerate TCAs, duloxetine, gabapentin, lyrica, cyclobenzaprine. She has seen rheumatology . 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 We discussed trial of naltrexone for her chronic pain. Naltrexone 1-4.5 mg qd. Would need to send rx to compounding pharmacy in [place]. Reviewed MOA, side effects. She would also like to get involved in resistance band training. >50% of this 40 minute appointment was spent in face to face counseling. [facility]: S/P LT partial thyroidectomy. TSH annually. She is not on thyroid replacement. [facility]: Has been on atorvastatin 20 mg qd since 10/2019. She is tolerating well. Repeat FLP and CMP. 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 consultation 01/07/21 with additional imaging, BI-RADS: 3, [...] back position sleep From 05-19-2020 visit: 07/31/18: [facility] records not available at time of consult, [...] she will qualify for fin assistance at [facility] due to just being . Requested [facility] records to review. Order Home Sleep Study, [...] Physician Member Role: Informed Provider Address: Address: [facility] [address] [address]- [place] Care Team Related Persons Name: EMY COBOS Address: Home [address] [place] [phone] Name: EMY COBOS Address: Home [address] [place] [phone]
--- OUTSIDE RECORDS SUMMARY | 2023-10-04 01:01 | XMS_ITS | Continuity of Care Document ---
Author Organization [facility], [facility] Address [address] [facility] [address] [place] [address] Care Team Providers Care Edge Blacker Name Role Phone KELLIWOO DEVON Primary Care Provider Assessment No assessment recorded. Plan of Treatment Reminders Order Date Submit Date Provider Last Modified By Organization Details Last Modified Time Details Appointments None recorded. Lab None recorded. Referral None recorded. Procedures None recorded. Surgeries None recorded. Imaging None recorded. Medication Orders cephalexin 500 mg capsule 2023 024 [facility], [address] [place] [address], [address], 14:40:11 Patient TargetsNo targets recorded. Patient InstructionsNo instructions recorded. Reason for Referral None Reported. Procedures Surgical History Date Name Laterality Status Provider Name and Address Organization Details Recorded Time 09/06/2023 I&D completed [address], [place], [address] 09/06/2023 14:43:08 Imaging Results None recorded. Procedure Notes None recorded. Medical Equipment None Reported. Allergies Allergen ID Allergen Name Allergen Category Reaction Reaction Severity Criticality Documentation Date Start Date Code Code System Note Provider Name and Address Organization Details Recorded Time 51397 metoprolo l Not available other mild low 01/25/2023 6918 RxNorm depre odalis Helm RN [facility], [facility] 3 11:17:49 21948 Provigil medicatio n other Not available low 01/25/2023 62214 4 RxNorm Brenda Helm RN [facility], [facility] 3 11:18:28 Medications Name Sig Start [...] t Available Vitals Date Recorded Body height Respiratory rate Body mass index (BMI) Body weight Body temperature Oxygen saturation Oxygen saturation in Arterial blood by Pulse oximetry Heart rate Systolic blood pressure Diastolic blood pressure Provider Name and Address Organization Details Last Updated DateTime 4 165.1 cm 18 /min 24.5 kg/m2 84271.4 8 g 98 [degF] 98 % 98 % 82 /min 106 mm[Hg] 64 mm[Hg] Meenakshi Kwong MA [facility] 14:23:56 Social History Question Answer Notes LastModified by Organizat ion Details LastModified Time Tobacco Smoking Status Never Smoker LINDA Tsai, [facility] 01/25/2023 11:21:15 What Was The Date Of Your Most Recent Tobacco Screening? 09/06/2023 [email or web address] Information not available 09/06/2023 Has Tobacco Cessation Counseling Been Provided? No [email or web address] Information not available 09/06/2023 On What Date [...] mL or 25mcg/0.25 mL dose 06/21/2020 completed LINDA Tsai, [facility] 01/25/2023 11:09:06 COVID-19, mRNA, LNP-S, bivalent, PF, 50 mcg/0.5 mL or 25mcg/0.25 mL dose 07/21/2020 completed LINDA Tsai, [facility] 01/25/2023 11:09:10 influenza, unspecified formulation 12/27/2022 completed LINDA Tsai, [facility] 01/25/2023 11:09:25 Tdap 05/24/2013 completed LINDA Tsai, [facility] 01/25/2023 11:09:38 zoster, unspecified formulation 06/12/2022 completed LINDA Tsai, [facility] 01/25/2023 11:09:46 zoster, unspecified formulation 08/22/2022 completed LINDA Tsai, [facility] 01/25/2023 11:09:51 Past Encounters Encounter ID Performer Location Encounter Start Date Encounter Closed Date Diagnosis/Indication Diagnosis SNOMED-CT Code [id number] MARLEN GAINES PA-C [address] [address] 09/06/2023 14:04:15 09/06/2023 14:41:34 Paronychia of finger [id number] Health Concerns Section Related Observation LastModified by Organization Detai ls LastModified Time None Recorded Concern Status LastModified by Organization Details LastModified Time None Recorded Payers Encounter Date Sequence Insurance Name Policy Number Policy Guevara Covered Member ID Guevara Member ID Guarantor Name 09/06/2023 1 [facility] [id number] Emilee Gan Melonie [id number] Emilee Wilhelm Notes Date Note Type Note Provider Name and Address Organization Details Recorded Time 09/06/2023 text/html HPI Notes: Patient is a 53-year-old female presenting for left third finger pain and swelling. Denies any injury or trauma. Started having swelling this along the side of the nail which has gotten progressively worse. She has tried soaking it in Epsom salts with limited relief. Has been taking jqqt-sus-rzguoyj pain medicines also with minimal relief. No history of similar issues in the past. [address], [place], [address], [facility]. 09/06/2023 14:43:58 OBGyn Episode No OBEpisode recorded.
--- OUTSIDE RECORDS SUMMARY | 2023-10-04 01:01 | XMS_ITS | Continuity of Care Document ---
Author Organization [facility] Address [address] [place] [address] Care Team Providers Care Fire Extinguisher Sprinkler Inspector Name Role Phone Karissarosalie Dina Kinza Primary Care Physician Encounter [facility] [id number] Date(s): 08/21/23 - 08/21/23 [facility] [address] [place] [address] Discharge Disposition: Home Allergies, Adverse Reactions, Alerts [...] Plan Future Appointments Future Scheduled Tests Laboratory* [facility] 08/21/23 * Lipid Panel 08/21/23 * TSH w/ Rflx to Free T4 08/21/23 * Hemoglobin A1c 08/21/23 Radiology* MG Mammo Screening Bilateral w/ Gil 07/04/23 * US Renal Bilateral 08/21/23 Immunizations Given and Recorded Vaccine Date Status [...] Recorded 1Result Comment: betzaida 2Result Comment: betzaida [facility] 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: [employer] Medications acetaminophen 325 mg oral tablet 650 mg = 2 tab, Oral, every 4 hr, PRN other (see comment), as needed, 0 Refill(s) Start Date: 07/08/21 Status: Ordered atorvastatin 20 mg oral tablet 1 tab, Oral, every morning, # 90 tab, 3 Refill(s), Pharmacy: [facility], 165, cm, 02/12/23 14:42:00 EST, [...] needed, # 1 EA, 0 Refill(s), Pharmacy: [facility]156, 165.1, cm, 04/26/23 9:23:00 EST, Height, 66.85, kg, 05/22/23 15:26:00 EDT, Weight Dosing Start Date: 06/27/23 Status: Ordered hydrOXYzine hydrochloride 25 mg oral tablet 25 mg = 1 tab, Oral, As Directed, PRN insomnia/anxiety, take 1 tab at bedtime prn, # 90 tab, 1 Refill(s), 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 Lamictal 100mg BID. [place] ER 450mg 1 1/2 tabs qhs. cymbalta 60mg. Zalephon for sleep. Has seen Dr. Singer at [facility]. 3From 06-12-2020 visit: 12/03/19: New [...] prior to sleep studies. see narcolepsy [facility]: Medications trialed and unable to tolerate TCAs, duloxetine, gabapentin, lyrica, cyclobenzaprine. She has seen rheumatology . 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 We discussed trial of naltrexone for her chronic pain. Naltrexone 1-4.5 mg qd. Would need to send rx to compounding pharmacy in [place]. Reviewed MOA, side effects. She would also like to get involved in resistance band training. >50% of this 40 minute appointment was spent in face to face counseling. [facility] visit: S/P LT partial thyroidectomy. TSH annually. She is not on thyroid replacement. [facility] visit: Has been on atorvastatin 20 mg qd since 10/2019. She is tolerating well. Repeat FLP and CMP. 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 Her symptoms sound out of proportion to mild to mod AYHIR, but I advise repeat sleep study to evaluate. Pt states she cannot have expensive test due to not being able to afford her 2000 dollar insurance deductible. she dos not think she will qualify for fin assistance at [facility] due to just being . Requested [facility] records to review. Order Home Sleep [...] on recent PSG. 01/14/20: no issues with AYHIR, she utilizes positional therapy which is adequate [...] Procedure Date Related Diagnosis Body Site Status History of lumbar spine surgery 07/24/23 Completed Laminectomy, facetectomy and foraminotomy (unilateral or bilateral [...] Physician Member Role: Informed Provider Address: Address: [facility] [place] [address]- [place] Care Team Related Persons Name: EMY COBOS Address: [address], [phone] Name: EMY COBOS Address: [address] [id number]
--- OUTSIDE RECORDS SUMMARY | 2023-10-04 01:01 | XMS_ITS | Continuity of Care Document ---
Author Organization [facility] Address [address] [place] [address] Care Team Providers Care Instrumentation Technologist Name Role Phone Dina Diaz Kinza Primary Care Physician Encounter NCTY_MI Date(s): 06/22/22 - 06/22/22 [facility] [address] [place] [address] Encounter Diagnosis HLD (hyperlipidemia)(Discharge Diagnosis) - 06/22/22 Discharge Disposition: Home or Self Care Attending Physician: Larry Feldman MD Allergies, Adverse Reactions, Alerts Substance Reaction [...] Contrast Left 09/01/21 * MG Mammo Diagnostic Bilateral w/ Gil 05/26/22 Functional Status 4/26/23 Other exposure to Infectious Disease Non e [...] immune globulin 06/05/07 Recorded 1Result Comment: [facility] 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: [employer] 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: [employer] Medications acetaminophen 325 mg oral tablet 650 mg = 2 tab, Oral, every 4 hr, PRN other (see comment), as needed, 0 Refill(s) Start Date: 07/08/21 Status: Ordered Allergy (Diphenhydramine HCl) 25 mg oral capsule Orally Once a day, 0 Refill(s) Start Date: 04/06/22 Status: Ordered atorvastatin 20 mg oral tablet 20 mg = 1 tab, Oral, every morning, # 90 EA, 3 Refill(s), Pharmacy: [id number], 165, cm,08/14/21 10:33:00 [...] spasm, # 30 tab, 0 Refill(s), Pharmacy: [id number], 165, cm, 03/28/22 10:18:00 EST, Height/Length Dosing, 62, kg, 03/28/22 10:18:00 EST, Weight Dosing Start Date: 03/28/22 Status: Ordered EPINEPHrine 0.3 mg injectable kit 1 auto, IM, As Directed, PRN other (see comment), as needed, 0 Refill(s) Start Date: 07/08/21 Status: Ordered hydrOXYzine hydrochloride 10 mg oral tablet 30 tab, 0 Refill(s) Start Date: 04/06/22 Status: Ordered ibuprofen 800 mg oral tablet 800 mg = 1 tab, Oral, every 8 hr, # 30 tab, 0 Refill(s), Pharmacy: [id number], 165, cm, 03/28/22 10:18:00 EST, Height/Length Dosing, 62, kg, 03/28/22 10:18:00 EST, Weight Dosing Start Date: 03/28/22 Status: Ordered ivabradine 5 mg oral tablet 2.5 mg = 0.5 tab, Oral, BID w/Meals, take a half tab (2.5mg) twice daily to equal 5mg, # 60 tab, 4 Refill(s), Pharmacy: [id number], 165, cm, 04/12/22 13:34:00 EST, Height/Length Dosing, 59.87, kg, 04/12/22 13:34:00 EST, Weight Dosing Start Date: 06/14/22 Status: Ordered pregabalin 25 mg oral capsule 25 mg = 1 cap, Oral, BID, # 56 cap, 5 Refill(s), Pharmacy: [id number], 165, cm, 04/12/2312:34:00 EST, Height/Length Dosing, 59.87, kg, 04/12/22 13:34:00 EST, Weight Dosing Start Date: 06/07/22 Stop Date: 11/22/22 Status: Ordered prochlorperazine 10 mg oral tablet 10 mg = 1 tab, Oral, every 8 hr, PRN other (see comment), as needed per [facility] headache clinic Start Date: 07/08/21 Status: Ordered traZODone 100 mg oral tablet 100 mg = 1 tab, Oral, every night at bedtime, 0 Refill(s) Start Date: 07/08/21 Status: Ordered Ubrelvy 100 mg oral tablet See Instructions, TAKE 1 TABLET BY MOUTH NEEDED (TAKE AT ONSET OF MIGRAIN, CAN REPEAT DOSE IN 2 HOURS, MAX DOSE OF 200 MG) Start Date: 08/26/21 Status: Ordered Viibryd 10 mg oral tablet 10 mg = 1 tab, Oral, Daily, Take with viibryd 20 mg daily with food, # 30 tab, 2 Refill(s), Pharmacy: [id number], 165, cm, 04/12/22 13:34:00 EST, Height/Length Dosing, 59.87, kg, 04/12/22 13:34:00 EST, Weight Dosing Start Date: 04/19/22 Stop Date: 07/18/22 Status: Ordered vilazodone 20 mg oral tablet 20 mg = 1 tab, Oral, Daily, # 30 tab, 2 Refill(s), Pharmacy: [id number], 165, cm, 04/12/22 13:34:00 EST, Height/Length Dosing, 59.87, kg, 04/12/22 13:34:00 EST, Weight Dosing Start Date: 04/19/22 Stop Date: 07/18/22 Status: Ordered Problem List Condition Confirmation Course [...] Confirmed Active Partial mastectomy 14 Confirmed Active Posttraumatic stress disorder Confirmed 05/25/21 Active Prediabetes 15 Confirmed Active Prolapsed lumbar intervertebral disc Confirmed 04/13/22 Active Sleep apnea Confirmed 03/20/15 Active Tachycardia Confirmed 11/01/18 Active Toxic uninodular goiter Confirmed 12/24/13 Active Vitamin D deficiency Confirmed 07/22/[address] Cooper - allergy to trees, weeds, grasses, dust mite, dogs/cats 2Outside Source Comment: Overview: meds as of . Lamictal 100mg BID. [place] ER 450mg 1 1/2 tabs qhs. cymbalta 60mg. Zalephon for sleep. Has seen Dr. Singer at [facility]. 3From 06-12-2020 visit: 12/03/19: New diagnosis of [...] but had rhinorrhea wakix - 17.8mg or /2 17.8mg kept her wake all night, heart [...] prior to sleep studies. [facility]ole[facility]: Medications trialed and unable to tolerate TCAs, duloxetine, gabapentin, lyrica, cyclobenzaprine. She has seen rheumatology . 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 We discussed trial of naltrexone for her chronic pain. Naltrexone 1-4.5 mg qd. Would need to send rx to compounding pharmacy in [place]. Reviewed MOA, side effects. She would also like to get involved in resistance band training. >50% of this 40 minute appointment was spent in face to face counseling. [facility]: S/P LT partial thyroidectomy. TSH annually. She is not on thyroid replacement. [facility]: Has been on atorvastatin 20 mg qd since 10/2019. She is tolerating well. Repeat FLP and CMP. 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 Requested [facility] records to review. Order Home Sleep Study, [...] USVVS, TVT, cystocele repair 5shoulder/labrum repair 09/2009 Vital Signs Most recent to oldest [Reference Range]: 1 Peripheral Pulse Rate [60-100 bpm] 93 bp m (06/22/22 10:40 AM) Blood Pressure [90-140/60-90 mmHg] 89/60 mmHg *LOW* (06/22/22 10:40 AM) Weight 64.0 kg (06/22/22 10:40 AM) Weight Measured (lbs) 141.096 lb (06/22/22 10:40 AM) Social History Social History Type Response Smoking Status Smoking tobacco use: Never tobacco user;Never 1 entered on: 07/27/21 Sex Female 1How much tobacco do you chew: none What was the date of your most recent tobacco screenin05-25-2021 Cardiology Outpatient Note * Larry Feldman MD: PERFORM Event Display: Cardiology Office Clinic Note Authored Date: [id number] CODY COBOS :1970 Age:51 years Sex:Female Visit Date:06/22/2022 Primary Care Physician: Dina Diaz History of Present Illness Cardiac problems: 1. ??Anxiety 2. ??Bipolar disorder 3. ??Borderline personality disorder 4.?? Fibromyalgia 5.?? Hyperlipidemia 6. ??Hypothyroidism 7. ??Depression 8. ??Obstructive sleep apnea 9.?? Morbid obesity 10. ??Tachycardia, possible SVT ?? This is??a 51-year-old woman who last saw Dr. Renee here??last December;??at that point she was started on Corlanor (ivabridine) in an effort to reduce her heart rate without dropping her blood pressure??(the rationale is assumed, as it was not??mentioned in??Dr. Renee's note).?There is a mention of SVT and Dr. Renee's note, but the only event monitor we have on record, from January of last year,??showed all sinus rhythm to sinus tachycardia and only rare ectopy. ?? She was last seen by her primary care provider a couple of weeks ago with back pain, pursuing Workmen's Compensation, with her low back pain apparently related to lifting a pallet many months ago??while working at [employer]. ?? Since starting Corlanor, she has had??massive diarrhea. ??She is hoping it resolves soon which bright reasonable thing to expect.?? Corlanor is rarely used and only a??recently developed medication, so we do not have a track record with this.?? I was clear with her that in her case, there are no significant arrhythmias that need medical treatment;??in other words,??nothing dangerous is happening from her symptoms.?? If she finds that the medication??makes her feel worse instead of better, then it is the wrong medication for her and she should simply stop it. ?? She does report chest pain with exertion. ??This??has been going on for??many years, occurs a couple of times a week.?? Is mild discomfort??tightening sensation that sometimes turns into a pain (when asked her what kind of pain, she said tight). It can last for less than 10 seconds or up to a couple of minutes. ??Is not associated with shortness of breath sometimes it is??making her nauseous. ??There is no diaphoresis.?? There may be some radiation down the left arm. ??It helps if she takes a deep breath or has something to drink or sits down.?? Again, this??has been going on??for at least 5 years, but may be getting worse lately.?? She her last stress test was??few years ago which was nondiagnostic as she only achieved 80% of maximal predicted heart rate. ??She is agreeable to a Lexiscan nuclear stress test. Review of Systems A complete review of systems is negative other than as noted in the history of present illness. Physical Exam Vitals & Measurements HR:??93??(Peripheral)?? BP:??89/60?? SpO2:??98%?? WT:??64.0??kg?? HEENT: Normocephalic, atraumatic Respirations: Clear to auscultation bilaterally with no wheezes rubs or rhonchi Cardiac: Regular rate and rhythm, normal S1, S2, no murmurs gallops or rubs Abdomen: Nontender nondistended normal active bowel sounds Extremities: 2+ dorsalis pedis pulses bilaterally with no significant edema Assessment/Plan HLD (hyperlipidemia)??E78.5 Ordered: CV ECG Clinic, 06/22/22 10:39:00 EDT, Routine, Reason: Other (please specify), Stop date and time 06/22/22 10:39:00 EDT, HLD (hyperlipidemia), ORD_SET_REQ_DT_RANGE, [facility] Internal Person Id Echocardiogram Stress, 06/22/22, Order for future visit, HLD (hyperlipidemia) Chest pain Follow-Up Appointment Request LAINA, *Est. 08/22/22 +/- 14 days, Future Order, In Approximately, [facility] ?? Data reviewed: 02/10/2020: Exercise tolerance test: She exercised for 3 minutes and 11 seconds, achieving 80% of maximal predicted heart rate 139 bpm, with 5.0 METS. ??There was no chest pain.?? The associated echocardiogram was reassuring with ejection fraction 65% and normal augmentation in all segments. ??It was read as normal, although is technically nondiagnostic and 80% of maximal predicted heart rate. 01/25/2022:??Cardiology note, Brigida Renee:??Try very low-dose Corlanor??for tachycardia, follow-up in 2 months. 02/02/2022:??Event monitor:??14 days, showing only sinus rhythm with rare PACs and rare PVCs, and trivial sinus tachycardia. 06/22/2022: EKG: Sinus rhythm at 94 bpm. ??Axes and intervals within normal limits. ??No evidence ofischemia or prior infarct. ?? 51-year-old woman is doing well. ?? Palpitations:??These do not seem to correlate with any significant arrhythmia, or even with significant ectopy. ??The Corlanor is reasonable to try for symptomatic relief, but if it is causing worse symptoms than it is treating,??it should be stopped. ??I reviewed this with her. ??She certainly??has??the right to stop the medication without even calling us if she wants. ?? Chest pain: This has been worked up previously. ??She has??had??this pain for 5 years, and the last??stress test was 3 years ago. ??Unfortunately,??that stress test was nondiagnostic??as she only achieved 80% of maximal predicted heart rate. ??We will arrange for Lexiscan nuclear stress test. ??We did not get to discuss this in much detail ?? EKG abnormalities:??She was concerned about her EKG from [facility]??which showed left atrial??possible left atrial enlargement,??perhaps incomplete right bundle branch block with RSR prime in lead V1.?? I reviewed with her these are completely normal findings, and this is a normal EKG. ??When compared to today's EKG, it is essentially the same, although this time the computer did not call those trivial abnormalities.?? I think I was able to provide some reassurance today. ?? We will plan to see her back here in a couple of months after the Lexiscan nuclear stress test, we can review those findings together.?? I did review with her that oftentimes with??palpitations that do not correlate with arrhythmia,??we often simply try to talk people into not noticing, which may be harder than it sounds. Problem List/Past Medical History Ongoing Abnormal cervical Papanicolaou smear Allergic rhinitis Anaphylaxis Anxiety Arthritis Bilateral knee pain Bipolar disorder Borderline personality disorder Cataplexy and narcolepsy Cobalamin deficiency Daytime somnolence Degeneration of lumbar intervertebral disc Female stress incontinence Fibromyalgia Herniation of nucleus pulposus of lumbar intervertebral disc History of subtotal thyroidectomy Human papilloma virus infection Hyperlipidemia Hypothyroidism Incomplete bladder emptying Injury of left shoulder Insomnia Laryngopharyngeal reflux Low back pain Mammography abnormal Medication overuse headache Migraine Mixed anxiety and depressive disorder Morbid obesity Neuropathy Obstructive sleep apnea syndrome Partial mastectomy Posttraumatic stress disorder Prediabetes Prolapsed lumbar intervertebral disc Sleep apnea Tachycardia Toxic uninodular goiter Vitamin D deficiency Historical Severe recurrent major depression Procedure/Surgical History ???Hemilaminectomy (04/14/2022)???Laminectomy, facetectomy and foraminotomy (unilateral or bilateral with decompression of spinal cord, cauda equina and/or nerve root(s), (eg, spinal or lateral recess stenosis)), single vertebral segment; lumbar (04/14/2022)???Removal or revision of sling for stress incontinence (eg, fascia or synthetic) (03/15/2022)???Colonoscopy (06/11/2020)???Egd/endoscopy (06/11/2020)???Tlh w/t/o 250 g or less (05/01/2020)???Repair of stress incontinence by suprapubic sling (09/28/2015)???Subtotal thyroidectomy (01/27/2014)???Partial mastectomy (11/27/2009)???Orthopedic surgery (09/2009)???Rhinoseptoplasty (02/27/2006)???Endometrial ablation (11/28/1999)???Cholecystectomy (07/28/1997)???Tubal ligation (02/28/1996) Medications acetaminophen 325 mg oral tablet, 650 mg= 2 tab, Oral, every 4 hr, PRN Allergy (Diphenhydramine HCl) 25 mg oral capsule atorvastatin 20 mg oral tablet, 20 mg= 1 tab, Oral, every morning, 3 refills baclofen 10 mg oral tablet cyclobenzaprine 10 mg oral tablet, 10 mg= 1 tab, Oral, TID, PRN EPINEPHrine 0.3 mg injectable kit, 1 auto, IM, As Directed, PRN hydrOXYzine hydrochloride 10 mg oral tablet ibuprofen 800 mg oral tablet, 800 mg= 1 tab, Oral, every 8 hr ivabradine 5 mg oral tablet, 2.5 mg= 0.5 tab, Oral, BID w/Meals, 4 refills pregabalin 25 mg oral capsule, 25 mg= 1 cap, Oral, BID, 5 refills prochlorperazine 10 mg oral tablet, 10 mg= 1 tab, Oral, every 8 hr, PRN traZODone 100 mg oral tablet, 100 mg= 1 tab, Oral, every night at bedtime Ubrelvy 100 mg oral tablet, See Instructions Viibryd 10 mg oral tablet, 10 mg= 1 tab, Oral, Daily, 2 refills vilazodone 20 mg oral tablet, 20 mg= 1 tab, Oral, Daily, 2 refills Allergies SHELLFISH DERIVED??(Anaphylactic reaction) rimegepant??(Eruption) dilTIAZem??(Depression, Chest pain) ARIPiprazole DilTIAZem (Eqv-Cardizem CD)??(Unknown) HYDROcodone??(Unknown) Latex??(no reaction) Peanuts Provigil??(Unknown) Roxicet??(Unknown) SOY TREE AND SHRUB POLLEN Tree Nuts??(Unknown) WHEAT acetaminophen-hydrocodone??(Unknown) acetaminophen-oxycodone??(Unknown) amitriptyline armodafinil??(Other) codeine imipramine??(Unknown) metoprolol??(Depression) modafinil??(runny nose, Difficulty swallowing, Other) morphine oxyCODONE Social History Alcohol Current- Comments: None Rarely Electronic Cigarette/Vaping Electronic Cigarette Use: Never. 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 Home/Environment Lives with Mother. Nutrition/Health Diet: Regular. [...] Mother. Rheumatoid arthritis: Sister. Electronically Signed on 06/22/22 11:25 AM Larry Feldman MD Patient Care team information Care Team Personnel Name: Dina Diaz Position: Physician Member Role: Informed Provider Address: Address: [facility] [address] [address]- Care Team Related Persons Name: EMY COBOS Address: Home [address] [place] [phone] Name: AMARIS DE LA FUENTE Address: Home
--- OUTSIDE RECORDS SUMMARY | 2023-10-04 01:01 | XMS_ITS | Continuity of Care Document ---
Author Organization [facility] Address [address] [place] [address] Care Team Providers Care Women'S Health Care Nurse Practitioner Name Role Phone Karissarosalie Dina Kinza Primary Care Physician Encounter [facility] [id number] Date(s): 08/03/23 - 08/03/23 [facility] [address] [place] [address] Discharge Disposition: Home Allergies, Adverse Reactions, Alerts Substance Reaction Severity Status SOY Unknown Active WHEAT Unknown Active SHELLFISH DERIVED Anaphylactic reaction Severe A ctive codeine Unknown Active amitriptyline Unknown Active imipramine Unknown Unknown Active morphine Unknown Active acetaminophen-oxycodone Unknown Unknown Acti ve Provigil Unknown Unknown Active oxyCODONE Unknown Active HYDROcodone Unknown Unknown Active ARIPiprazole Unknown Active Tree Nuts Unknown Unknown Active TREE AND SHRUB POLLEN 1 Unknown Acti ve metoprolol 2 Depression Unknown Active acetaminophen-hydrocodone Unknown Unknown Ac tive modafinil 3 runny nose Difficulty swallowing Other Unknown Active armodafinil 4 Other Unknown Active Roxicet Unknown Unknown Active DilTIAZem (Eqv-Cardizem CD) Unknown Unknown Active rimegepant Eruption Severe Active Peanuts Unknown Active Latex 5 no [...] 2Result Comment: betzaida [facility] [facility] 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: [employer] 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: [employer] Medications acetaminophen 325 mg oral tablet 650 mg = 2 tab, Oral, every 4 hr, PRN other (see comment), as needed, 0 Refill(s) Start Date: 07/08/21 Status: Ordered atorvastatin 20 mg oral tablet 1 tab, Oral, every morning, # 90 tab, 3 Refill(s), Pharmacy: [id number], 165, cm, 02/12/23 14:42:00 [...] needed, # 1 EA, 0 Refill(s), Pharmacy: [id number], 165.1, cm, 04/26/23 9:23:00 EST, Height, 66.85, kg, 05/22/23 15:26:00 EDT, Weight Dosing Start Date: 06/27/23 Status: Ordered hydrOXYzine hydrochloride 25 mg oral tablet 25 mg = 1 tab, Oral, As Directed, PRN insomnia/anxiety, take 1 tab at bedtime prn, # 90 tab, 1 Refill(s), 04/26/24 8:37:00 AM OCCUPATIONAL THERAPIST, Pharmacy: [id number], 165.1, cm, 04/26/23 9:23:00 [...] PRN other (see comment), as needed per [facility] headache clinic Start Date: 07/08/21 Status: Ordered [...] meds as of . Lamictal 100mg BID. [place] ER 450mg 1 / tabs qhs. cymbalta 60mg. Zalephon for sleep. Has seen Dr. Singer at [facility]. 3From 06-12-2020 visit: 12/03/19: New [...] prior to sleep studies. see narcolepsy section [facility] 12-14-2020 visit: Medications trialed and unable to tolerate TCAs, duloxetine, gabapentin, lyrica, cyclobenzaprine. She has seen rheumatology . 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 We discussed trial of naltrexone for her chronic pain. Naltrexone 1-4.5 mg qd. Would need to send rx to compounding pharmacy in [place]. Reviewed MOA, side effects. She would also like to get involved in resistance band training. >50% of this 40 minute appointment was spent in face to face counseling. [facility]: S/P LT partial thyroidectomy. TSH annually. She is not on thyroid replacement. [facility] visit: Has been on atorvastatin 20 mg qd since 10/2019. She is tolerating well. Repeat FLP and CMP. 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 Requested [facility] records to review. Order Home Sleep Study, [...] Physician Member Role: Informed Provider Address: Address: [facility] [address] [address]- [place] Care Team Related Persons Name: EMY COBOS Address: Home [address] [place] [phone] Name: EMY COBOS Address: Home [address] [place] [phone]
--- OUTSIDE RECORDS SUMMARY | 2023-10-04 01:01 | XMS_ITS | Continuity of Care Document ---
Author Organization [facility] Address [address] [place] [address] Care Team Providers Care Linderman Operator Name Role Phone Karissabairon Dina Kinza Primary Care Physician [phone] [facility] Date(s): 04/12/22 - 04/12/22 [facility] [address] [place] [address] Encounter Diagnosis Central stenosis of spinal canal(Discharge Diagnosis) - 04/12/22 Sciatica(Discharge Diagnosis) - 04/12/22 Discharge Disposition: Left Against Medical Advice Attending Physician: Chago Jacobson MD Admitting Physician: Chago Jacobson MD Allergies, Adverse Reactions, Alerts Substance Reaction [...] Appointments Future Scheduled Tests Laboratory* Lipid Panel 5/17/22 Radiology* MG Mammo Screening Right w/ Gil 07/28/22 * MRI Shoulder w/o Contrast Left 09/01/21 * MG Mammo Diagnostic Left 07/28/22 Functional Status 04/12/22 Other exposure to Infectious Disease Non e [...] formulation 04/01/14 Record ed influenza, unspecified formulation 1 12/31/10 Kal rded influenza, unspecified formulation 2 01/18/10 Kal rded tetanus/diphth/pertuss (Tdap) adult/adol 05/24/13 Recorded Td(adult) unspecified formulation 04/27/10 Recorde d Td(adult) unspecified formulation 04/27/10 Recorde d tetanus immune globulin 06/05/07 Recorded 1Result Comment: Manufacturing Technologist: Shippo 2Result Comment: Manufacturing Technologist: [employer] Medications !-Compazine 0 Refill(s) Start Date: 04/06/22 Status: Ordered acetaminophen 325 mg oral tablet 650 mg [...] morning, # 90 EA, 3 Refill(s), Pharmacy: [id number], 165, cm,08/14/21 10:33:00 EDT, Height/Length Dosing, 56, kg, 08/14/21 10:33:00 EDT, Weight Dosing Start Date: 11/25/21 Status: Ordered baclofen 10 mg oral tablet 90 EA, TAKE 1 TABLET BY MOUTH THREE TIMES DAILY NEEDED FOR MILD TO MODERATE HEADACHES - MAX DAILY DOSE 3 TABLETS (30MG), 0 Refill(s) Start Date: 04/06/22 Status: Ordered Banophen 50 mg oral capsule 1 Refill(s), TAKE 1 CAPSULE BY MOUTH EVERY 6 TO 8 HOURS NEEDED, 0 Refill(s) Start Date: 04/06/22 Status: Ordered Corlanor 5 mg oral tablet 5 mg = 1 tab, Oral, BID w/Meals, # 60 tab, 11 Refill(s), Pharmacy: [id number], 165, cm, 02/19/22 9:21:00 EST, Height/Length Dosing, 58, kg, 02/19/22 9:21:00 EST, Weight Dosing Start Date: 03/12/22 Status: Ordered cyclobenzaprine 10 mg oral tablet 10 mg = 1 tab, Oral, TID, PRN as needed for muscle spasm, # 30 tab, 0 Refill(s), Pharmacy: [id number], 165, cm, 03/28/22 10:18:00 EST, Height/Length Dosing, 62, kg, 03/28/22 10:18:00 EST, Weight Dosing Start Date: 03/28/22 Status: Ordered EPINEPHrine 0.3 mg injectable kit 1 auto, IM, As Directed, PRN other (see comment), as needed, 0 Refill(s) Start Date: 07/08/21 Status: Ordered estradiol 0.1 mg/g vaginal cream 42 g, 0 Refill(s) Start Date: 04/06/22 Status: Ordered hydrOXYzine hydrochloride 10 mg oral tablet 30 tab, 0 Refill(s) Start Date: 04/06/22 Status: Ordered ibuprofen 200 mg oral capsule 600 mg = 3 cap, Oral, As Directed, every 6 - 8 hours, 0 Refill(s) Start Date: 07/08/21 Status: Ordered ibuprofen 800 mg oral tablet 800 mg = 1 tab, Oral, every 8 hr, # 30 tab, 0 Refill(s), Pharmacy: [id number], 165, cm, 03/28/22 10:18:00 EST, Height/Length Dosing, 62, kg, 03/28/22 10:18:00 EST, Weight Dosing Start Date: 03/28/22 Status: Ordered Lyrica 25 mg oral capsule 25 mg = 1 cap, Oral, BID, # 56 cap, 0 Refill(s), Pharmacy: [id number], 165, cm, :21:00 EST, Height/Length Dosing, 58, kg, 02/19/22 9:21:00 EST, Weight Dosing Start Date: 03/16/22 Stop Date: 04/13/22 Status: Ordered predniSONE 10 mg oral tablet See Instructions, 60 mg x 3 days, 50 mg x 3 days, 40 mg x 3 days,30mgx 3 days 20 mg x 3 days, 10 mgx 3 days and then stop taper., # 63 tab, 0 Refill(s), Pharmacy: [id number], 165, cm, 03/28/22 10:18:00 EST, Height/Length Dosing, 62, kg, 01... Start Date: 03/29/22 Status: Ordered predniSONE 20 mg oral tablet Oral, 20 Unknown, 1 Refill(s), Take 20 mg by mouth 2 times daily., 0 Refill(s) Start Date: 04/10/22 Status: Ordered prochlorperazine 10 mg oral tablet 10 mg = 1 tab, Oral, every 8 hr, PRN other (see comment), as needed per [facility] headache clinic Start Date: 07/08/21 Status: Ordered traMADol 50 mg oral tablet 25 mg = 0.5 tab, Oral, every 6 hr, PRN as needed for pain, # 10 tab, 0 Refill(s), [id number], 165, cm, 03/28/22 10:18:00 EST, Height/Length Dosing, 62, kg, 03/28/22 10:18:00 EST,Weight Dosing Start Date: 04/08/22 Stop Date: 04/13/22 Status: Ordered traZODone 100 mg oral tablet 100 mg = 1 tab, Oral, every night at bedtime, 0 Refill(s) Start Date: 07/08/21 Status: Ordered Tylenol Extra Strength 500 mg oral tablet 500 mg = 1 tab, Oral, every 4 hr, PRN as needed for pain, # 24 tab, 0 Refill(s), Pharmacy: [id number], 165, cm, 03/28/22 10:18:00 EST, Height/Length Dosing, 62, kg, 03/28/22 10:18:00 EST, Weight Dosing Start Date: 03/28/22 Status: Ordered Ubrelvy 100 mg oral tablet See Instructions, TAKE 1 TABLET BY MOUTH NEEDED (TAKE AT ONSET OF MIGRAIN, CAN REPEAT DOSE IN 2 HOURS, MAX DOSE OF 200 MG) Start Date: 08/26/21 Status: Ordered vilazodone 20 mg oral tablet 20 mg = 1 tab, Oral, Daily, Step II, # 30 tab, 0 Refill(s), Pharmacy: [id number], 165, cm, 03/28/22 10:18:00 EST, Height/Length Dosing, 62, kg, 03/28/22 10:18:00 EST, Weight Dosing Start Date: 04/12/22 Stop Date: 05/12/22 Status: Ordered ZyrTEC Liquid Gels 10 mg oral capsule 1 Refill(s), every 24 hours., 0 Refill(s) Start Date: 04/10/22 Status: Ordered Problem List Condition Confirmation Course [...] Confirmed 01/08/15 Active Fibromyalgia 5 Confirmed Active History of subtotal thyroidectomy 6 Confirmed [...] Confirmed 05/25/21 Active Prediabetes 15 Confirmed Active Sleep apnea Confirmed 03/20/15 Active Tachycardia Confirmed 11/01/18 Active Toxic uninodular goiter Confirmed 12/24/13 Active Vitamin D deficiency Confirmed 07/22/[address] Cooper - allergy to trees, weeds, grasses, dust mite, dogs/cats 2Outside Source Comment: Overview: meds as of . Lamictal 100mg BID. [place] [facility] 450mg 1 1/2 tabs qhs. cymbalta 60mg. Zalephon for sleep. Has seen Dr. Singer at [facility]. 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 We discussed trial of naltrexone for her chronic pain. Naltrexone 1-4.5 mg qd. Would need to send rx to compounding pharmacy in [place]. Reviewed MOA, side effects. She would also like to get involved in resistance band training. >50% of this 40 minute appointment was spent in face to face counseling. 6[facility] 12-14-2020 visit: S/P LT partial thyroidectomy. TSH annually. She is not on thyroid replacement. 7[facility] 11-03-2020 visit: Has been on atorvastatin 20 mg qd since 10/2019. She is tolerating well. Repeat FLP and CMP. 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 Requested [facility] records to review. Order Home Sleep Study, [...] Procedure Date Related Diagnosis Body Site Status Removal or revision of sling for stress incontinence (eg, fascia or synthetic) 03/15/22 Completed Colonoscopy 1 06/10/20 Completed Egd/endoscopy 2 06/10/20 Completed Tlh w/t/o 250 g or less 3 04/30/20 Completed Repair of stress incontinenc e by suprapubic sling 09/27/15 Completed Subtotal thyroidectomy 01/26/14 Co mpleted Partial mastectomy 11/26/09 Comple maame Orthopedic surgery 4 09/2009 Comp leted Rhinoseptoplasty 02/26/06 Complete d Endometrial ablation 11/27/99 Comp leted Cholecystectomy 5/31/98 Completed Tubal ligation 02/27/96 Completed 1repeat in 5 yrs due to h/o of colon polyps 2gastritis, esophagitis. 3TLH, BS, USVVS, TVT, cystocele repair 4shoulder/labrum repair 09/2009 Vital Signs Most recent to oldest [Reference Range]: 1 Temperature Temporal Artery [36-38 Deg C ] 36.5 Deg C (04/12/22 1:17 PM) Peripheral Pulse Rate [60-100 bpm] 101 b pm *HI* (04/12/22 1:17 PM) Respiratory Rate [12-24 br/min] 25 br/mi n *HI* (04/12/22 1:17 PM) Blood Pressure [90-140/60-90 mmHg] 132/7 8mmHg (04/12/22 1:17 PM) Weight Dosing 59.87 kg (04/12/22 1:34 PM) Weight Estimated 59.87 kg (04/12/22 1:17 PM) Height/Length Dosing 165.000 cm (04/12/22 1:34 PM) Height/Length Estimated 165.000 cm (04/12/22 1:17 PM) Social History Social History Type Response Smoking Status Smoking tobacco use: Never tobacco user;Never 1 entered on: 07/27/21 Sex Female 1How much tobacco do you chew: none What was the date of your most recent tobacco screenin05-25-2021 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 She cannot afford to wait and go through her [employer] insurance because it bright 6-8 wk wait and she would need to go to [place]. The patient was scheduled for laminectomy, facetectomy and foraminotomy done with Dr. Gregorio on 04/13/2022. 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 Pt gave verbal permission for me to contact Gustavo to inquire about her workman's comp claim. TC to Gustavo Sanaz Marker [phone] - she stated that the case was in litigation but thoughtthat pt was having her surgery via her insurance at [facility] - she is aware that this is not happening. Per Sanaz she has additional records that she received today that is under review - they (she) should know soon if pt was approved as she was initially declined. Pt has not reached out to Surgeon for any pain management. She does have an apt with her PCP on 04/14. Provider and pt updated. Physician Emergency department Note * Asa Concepcion MD: PERFORM Event Display: ED Note Physician Authored Date: [id number] CODY COBOS :1970 Age:51 years Sex:Female Visit Date:04/12/2022 Primary Care Physician: Dina Diaz Basic Information Time Seen: Asa Concepcion MD / 04/12/2022 14:17 Chief Complaint Pt presents with 10/10 low pain ??Hx of slipped disc in January, met w/ spinal surgeon and was told her disc is in her spinal canal and she needs surgery, waiting on worker's comp. Pt took ibuprofenm tramadol, and baclofen with no relief. C/o numbness and History Of Present Illness: 51-year-old female past medical history of bipolar, borderline, fibromyalgia, hyperlipidemia, low back pain chronically presents with low back pain. ??Located lower back rating to the left lower extremity.?? Multiple pain medications have been ineffective. ??Currently awaiting surgery. Review of Systems: Low back pain Physical Exam Vitals & Measurements T:??36.5?C ??(Temporal Artery)?? HR:??101??(Peripheral)?? RR:??25?? BP:??132/78?? SpO2:??100%?? HT:??165.000??cm?? WT:??59.87??kg??(Estimated)?? Pain Score:??10?? O2 Therapy:??Room air?? General: Alert and oriented, well nourished,?No??acute distress Eye: PERRL, EOMI,?Normal??conjunctiva HENT: Normocephalic Lungs: Clear to auscultation and percussion,?Non-labored?? respiration Heart:?Normal?? rate,?Regular??rhythm,?No??murmur,?No??gallop,?No??edema Abdomen: Soft, non-tender, non-distended,?Normal?? bowel sounds,?No??masses Medical Decision Makin-year-old female??presents with??low back pain.?? This is been a chronic issue of??hers as of late. ??Located lumbar spine radiating to the left lower extremity. ??Vitals are stable. ??Patient is ambulatory. ??No focal neurologic deficits.?? No evidence of cord compression no saddle paresthesias or urinary incontinence. ??She was seen in the ER??about 2 weeks ago, had MRI that showed??large diffuse disc osteophyte complex at L4-L5 causes marked spinal canal stenosis. ??There is a left eccentric component above the disc level causing mass effect upon the left L4 root as it enters the foramen. ??Left eccentric concentric annular tear at L5-S1.?? Patient has been on multiple pain medications including tramadol, baclofen, cyclobenzaprine, Tylenol, Motrin, lidocaine patches, prednisone. ??She states nothing is working for her pain. ??She was requesting pain medicine in the ER. ??She was given Dilaudid??2 mg by mouth. ??She states that this did not help her pain at all. ??She was given an additional 2 mg of Dilaudid orally for her pain.?? She stated that this did not help her pain.?? After this patient ended up leaving the emergency department before reevaluation.?? I involved our??clinical worker in the ER to asked the patient about??surgery, there were notes in the chart??on chart review that stated she was scheduled to have surgery tomorrow but patient states that she was unable to??get this done because Worker's Compensation was denying the claim??and that her insurance could not??cover the procedure.?? Our??ER clinical worker made some phone calls to try to investigate??the Worker's Compensation claim, ultimately they were unable to provide definitive information back??it sounds like the claim may be processed??soon.?? Patient ultimately eloped from the emergency department??prior to??final ??reevaluation. Procedure No Qualifying Data Assessment/Plan 1.??Central stenosis of spinal canal??M48.00 2.??Sciatica??M54.30 Medication Reconciliation Unchanged acetaminophen (acetaminophen 325 mg oral tablet)2 tab Oral (given by mouth) every 4 hours as neededother (see comment). as needed. ?? acetaminophen (Tylenol Extra Strength 500 mg oral tablet)1 tab Oral (given by mouth) every 4 hours as needed as needed for pain. Refills: 0. ?? atorvastatin (atorvastatin 20 mg oral tablet)1 tab Oral (given by mouth) every morning. Refills: 3. ?? baclofen (baclofen 10 mg oral tablet)90 EA, TAKE 1 TABLET BY MOUTH THREE TIMES DAILY NEEDED FOR MILD TO MODERATE HEADACHES - MAX DAILY DOSE 3 TABLETS (30MG). ?? cetirizine (ZyrTEC Liquid Gels 10 mg oral capsule)1 Refill(s), every 24 hours.. ?? cyclobenzaprine (cyclobenzaprine 10 mg oral tablet)1 tab Oral (given by mouth) 3 times a day as needed as needed for muscle spasm. Refills: 0. ?? diphenhydrAMINE (Allergy (Diphenhydramine HCl) 25 mg oral capsule)Orally Once a day. ?? diphenhydrAMINE (Banophen 50 mg oral capsule)1 Refill(s), TAKE 1 CAPSULE BY MOUTH EVERY 6 TO 8 HOURS NEEDED. ?? EPINEPHrine (EPINEPHrine 0.3 mg injectable kit)1 auto Intramuscular (in a muscle) As Directed as needed other (see comment). as needed. ?? estradiol topical (estradiol 0.1 mg/g vaginal cream)42 g. ?? hydrOXYzine (hydrOXYzine hydrochloride 10 mg oral tablet)30 tab. ?? ibuprofen (ibuprofen 200 mg oral capsule)3 Capsules Oral (given by mouth) As Directed. every 6 - 8 hours. ?? ibuprofen (ibuprofen 800 mg oral tablet)1 tab Oral (given by mouth) every 8 hours. Refills: 0. ?? ivabradine (Corlanor 5 mg oral tablet)1 tab Oral (given by mouth) 2 times a day (with meals). Refills: 11. ?? predniSONE (predniSONE 10 mg oral tablet)60 mg x 3 days, 50 mg x 3 days, 40 mg x 3 days,30mgx 3 days 20 mg x 3 days, 10 mg x 3 days and then stop taper.. Refills: 0. ?? predniSONE (predniSONE 20 mg oral tablet)Oral (given by mouth). 20 Unknown, 1 Refill(s), Take 20 mgby mouth 2 times daily.. ?? pregabalin (Lyrica 25 mg oral capsule)1 Capsules Oral (given by mouth) 2 times a day for 28 Days. Refills: 0. ?? prochlorperazine (!-Compazine) ?? prochlorperazine (prochlorperazine 10 mg oral tablet)1 tab Oral (given by mouth) every 8 hours as needed other (see comment). as needed per [facility] headache clinic. ?? traMADol (traMADol 50 mg oral tablet)0.5 tab Oral (given by mouth) every 6 hours as needed as needed for pain for 5 Days. Refills: 0. ?? traZODone (traZODone 100 mg oral tablet)1 tab Oral (given by mouth) every night at bedtime. ?? ubrogepant (Ubrelvy 100 mg oral tablet)TAKE 1 TABLET BY MOUTH NEEDED (TAKE AT ONSET OF MIGRAIN, CAN REPEAT DOSE IN 2 HOURS, MAX DOSE OF 200 MG). ?? vilazodone (vilazodone 20 mg oral tablet)1 tab Oral (given by mouth) every day for 30 Days. Step II. Refills: 0. Problem List/Past Medical History Ongoing Abnormal cervical Papanicolaou smear Allergic rhinitis Anaphylaxis Anxiety Arthritis Bilateral knee pain Bipolar disorder Borderline personality disorder Cataplexy and narcolepsy Cobalamin deficiency Daytime somnolence Degeneration of lumbar intervertebral disc Female stress incontinence Fibromyalgia History of subtotal thyroidectomy Human papilloma virus infection Hyperlipidemia Hypothyroidism Incomplete bladder emptying Injury of left shoulder Insomnia Laryngopharyngeal reflux Low back pain Mammography abnormal Medication overuse headache Migraine Mixed anxiety and depressive disorder Morbid obesity Neuropathy Obstructive sleep apnea syndrome Partial mastectomy Posttraumatic stress disorder Prediabetes Sleep apnea Tachycardia Toxic uninodular goiter Vitamin D deficiency Historical Severe recurrent major depression Procedure/Surgical History ???Removal or revision of sling for stress incontinence (eg, fascia or synthetic) (03/15/2022)???Colonoscopy (06/11/2020)???Egd/endoscopy (06/11/2020)???Tlh w/t/o 250 g or less (05/01/2020)???Repair of stress incontinence by suprapubic sling (09/28/2015)???Subtotal thyroidectomy (01/27/2014)???Partial mastectomy (11/27/2009)???Orthopedic surgery (09/2009)???Rhinoseptoplasty (02/27/2006)???Endometrial ablation (11/28/1999)???Cholecystectomy (07/28/1997)???Tubal ligation (02/28/1996) Medication Administration Given Dilaudid, 2 mg, Oral Dilaudid, 2 mg, Oral Allergies SHELLFISH DERIVED??(Anaphylactic reaction) rimegepant??(Eruption) dilTIAZem??(Depression, Chest pain) ARIPiprazole DilTIAZem (Eqv-Cardizem CD)??(Unknown) HYDROcodone??(Unknown) Latex??(no reaction) Peanuts Provigil??(Unknown) Roxicet??(Unknown) SOY TREE AND SHRUB POLLEN Tree Nuts??(Unknown) WHEAT acetaminophen-hydrocodone??(Unknown) acetaminophen-oxycodone??(Unknown) amitriptyline armodafinil??(Other) codeine imipramine??(Unknown) metoprolol??(Depression) modafinil??(runny nose, Difficulty swallowing, Other) morphine oxyCODONE Social History Alcohol Current- Comments: None Rarely Electronic Cigarette/Vaping Electronic Cigarette Use: Never. 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 Home/Environment Lives with Mother. Nutrition/Health Diet: Regular. [...] Mother. Rheumatoid arthritis: Sister. Electronically Signed on 04/12/22 08:48 PM Asa Concepcion MD Patient Care team information Care Team Personnel Name: Dina Diaz Position: Physician Member Role: Informed Provider Address: Address: [facility] [id number] [place] [address] Name: Asa Concepcion MD Position: Physician Member Role: ED Physician Address: Address: [address] [address] Care Team Related Persons Name: EMY COBOS Address: Home Name: AMARIS DE LA FUENTE Address: Home
--- OUTSIDE RECORDS SUMMARY | 2023-10-04 01:01 | XMS_ITS | Continuity of Care Document ---
Author Organization [facility] Address [address] [place] [address] Care Team Providers Care Matrix Worker Name Role Phone Dina Diaz Primary Care Physician Encounter [facility] [id number] Date(s): 02/01/23 - 02/01/23 [facility] [address] [place] [address] Encounter Diagnosis Pneumonia(Discharge Diagnosis) - 02/01/23 Discharge Disposition: Home or Self Care Attending [...] Unknown Active acetaminophen-oxycodone Unknown Unknown Acti ve Roxicet Unknown Unknown Active Provigil Unknown Unknown Active oxyCODONE Unknown Active HYDROcodone Unknown Unknown Active ARIPiprazole Unknown Active Tree Nuts Unknown Unknown Active Peanuts Unknown Active acetaminophen-hydrocodone Unknown Unknown Ac tive modafinil 3 runny nose Difficulty swallowing Other Unknown Active armodafinil 4 Other Unknown Active Latex 5 no reaction Unknown [...] 2Result Comment: betzaida Marielle club 3Result Comment: 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: GlaxTabulaKline 4Result 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: 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: [employer] Medications acetaminophen 325 mg oral tablet 650 mg = 2 tab, Oral, every 4 hr, PRN other (see comment), as needed, 0 Refill(s) Start Date: 07/08/21 Status: Ordered albuterol 90 mcg/inh aerosol inhaler 2 puffs, Inhale, every 6 hr, PRN as needed for wheezing, # 8 g, 0 Refill(s), Pharmacy: [id number], 165, cm, 01/04/23 10:12:00 EST, Height, 66.65, kg, 01/30/23 13:31:00 EST, Weight Dosing Start Date: 01/30/23 Status: Ordered atorvastatin 20 mg oral tablet 1 tab, Oral, every morning, # 90 tab, 0 Refill(s), Pharmacy: [id number], 165, cm, 04/12/22 13:34:00 EST, Height/Length Dosing, 59.87, kg, 04/12/22 13:34:00 EST, Weight Dosing Start Date: 11/08/22 Status: Ordered azithromycin 250 mg oral tablet See Instructions, Oral, Daily, Take 2 tabs on day 1 and 1 tab on day 2-5, # 6 tab, 0 Refill(s), Pharmacy: [id number], 165, cm, 01/04/23 10:12:00 EST, Height, 66.65, kg, 01/30/23 13:31:00 EST, Weight Dosing Start Date: 01/30/23 Status: Ordered baclofen 10 mg oral tablet 90 EA, TAKE 1 TABLET BY MOUTH THREE TIMES DAILY NEEDED FOR MILD TO MODERATE HEADACHES - MAX DAILY DOSE 3 TABLETS (30MG), 0 Refill(s) Start Date: 04/06/22 Status: Ordered benzonatate 100 mg oral capsule 100 mg = 1 cap, Oral, every 8 hr, PRN as needed for cough, 1-2 tabs for cough every 8 hours, # 30 cap, 0 Refill(s), Pharmacy: [id number], 165, cm, 01/04/23 10:12:00 EST, Height, 66.65, kg,01/30/23 13:31:00 EST, Weight Dosing Start Date: 01/31/23 Status: Ordered doxepin 3 mg oral tablet See Instructions, take 1 to 2 tab Oral every day at bedtime, # 30 tab, 1 Refill(s), Pharmacy: [id number], 165, cm, 01/04/23 10:12:00 EST, Height, 69.22, kg, 01/04/23 10:13:00 EST, Weight Dosing Start Date: 01/18/23 Status: Ordered EPINEPHrine 0.3 mg injectable kit 1 auto, IM, As Directed, PRN other (see comment), as needed, 0 Refill(s) Start Date: 07/08/21 Status: Ordered hydrOXYzine hydrochloride 25 mg oral tablet Oral, 1 Unknown, 1 Refill(s), Take 1 tablet by mouth as needed., 0 Refill(s) Start Date: 09/15/22 Status: Ordered ketorolac See Instructions, PRN, 0 Refill(s) Start Date: 09/16/22 Status: Ordered Nurtec ODT 75 mg oral tablet, disintegrating 0 Refill(s) Start Date: 08/16/22 Status: Ordered prochlorperazine 10 mg oral tablet 10 mg = 1 tab, Oral, every 8 hr, PRN other (see comment), as needed per [facility] Start Date: 07/08/21 Status: Ordered traZODone 100 mg oral tablet See Instructions, TAKE 1 TABLET BY MOUTH ONCE DAILY AT BEDTIME, # 90 tab, 3 Refill(s), Pharmacy: [id number], 165, cm, 04/12/22 13:34:00 EST, Height/Length Dosing, 59.87, kg, 04/12/22 13:34:00 EST, Weight Dosing Start Date: 11/09/22 Status: Ordered traZODone 50 mg oral tablet 50 mg = 1 tab, Oral, every night at bedtime, PRN as needed for sleep, # 30 tab, 2 Refill(s), Pharmacy: [id number], 165, cm, 01/04/23 10:12:00 EST, Height, 68.08, kg, 01/13/23 13:29:00 EST,Weight Dosing Start Date: 01/13/23 Stop Date: 04/13/23 Status: Ordered Ubrelvy 100 mg oral tablet [...] 01/07/20 Active Cobalamin deficiency Confirmed 05/07/15 Active Community [...] Confirmed 01/07/21 Active Medication overuse headache Confirmed 5/3/22 Active Migraine 10 Confirmed Active Mixed anxiety [...] meds as of . Lamictal 100mg BID. [place] ER 450mg 1 /2 tabs qhs. cymbalta 60mg. Zalephon for sleep. Has seen Dr. Singer at [facility]. 3From 06-12-2020 visit: 12/03/19: New [...] prior to sleep studies. see narcole[facility]: Medications trialed and unable to tolerate TCAs, duloxetine, gabapentin, lyrica, cyclobenzaprine. She has seen rheumatology . 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 We discussed trial of naltrexone for her chronic pain. Naltrexone 1-4.5 mg qd. Would need to send rx to compounding pharmacy in [place]. Reviewed MOA, side effects. She would also like to get involved in resistance band training. >50% of this 40 minute appointment was spent in face to face counseling. [facility] visit: S/P LT partial thyroidectomy. TSH annually. She is not on thyroid replacement. [facility] 11-[facility]-2020 visit: Has been on atorvastatin 20 mg qd since 10/2019. She is tolerating well. Repeat FLP and CMP. 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 Requested [facility] records to review. Order Home Sleep Study, [...] Physician Member Role: Informed Provider Address: Address: [facility] [address] [address]- Care Team Related Persons Name: EMY COBOS Address: Home [address] [place] [phone]
--- OUTSIDE RECORDS SUMMARY | 2023-10-04 01:02 | XMS_ITS | Continuity of Care Document ---
Author Organization [facility] Address [address] [place] [address] Care Team Providers Care Shirring Tender Name Role Phone Emily Dina C Primary Care Physician Encounter [facility] [id number] Date(s): 11/01/22 - 11/01/22 [facility] [address] [place] [address] Discharge Disposition: Home Allergies, Adverse Reactions, Alerts [...] Plan Future Appointments Future Scheduled Tests Radiology* US Breast ABUS Bilateral 10/14/22 * US Renal Bilateral 11/01/22 Immunizations Given and Recorded Vaccine Date Status [...] 1Result Comment: betzaida Marielle club 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: 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: [employer] Medications acetaminophen 325 mg oral tablet 650 mg = 2 tab, Oral, every 4 hr, PRN other (see comment), as needed, 0 Refill(s) Start Date: 07/08/21 Status: Ordered atorvastatin 20 mg oral tablet 20 mg = 1 tab, Oral, every morning, # 90 EA, 3 Refill(s), Pharmacy: [id number], 165, cm,08/14/21 10:33:00 [...] spasm, # 30 tab, 0 Refill(s), Pharmacy: [id number], 165, cm, 03/28/22 10:18:00 EST, [...] hr, # 30 tab, 0 Refill(s), Pharmacy: [id number], 165, cm, 03/28/22 10:18:00 EST, [...] other (see comment), as needed per [facility] Start Date: 07/08/21 Status: Ordered traZODone 100 mg oral tablet See Instructions, TAKE 1 TABLET BY MOUTH ONCE DAILY AT BEDTIME, # 90 tab, 0 Refill(s), Pharmacy: [id number], 165, cm, 04/12/22 13:34:00 EST, [...] 3 Confirmed 01/07/20 Active Cobalamin deficiency Confirmed 3/10/16 Active Daytime somnolence 4 Confirmed Active Degeneration [...] meds as of . Lamictal 100mg BID. [place] ER 450mg 1 1/2 tabs qhs. cymbalta 60mg. Zalephon for sleep. Has seen Dr. Singer at [facility]. 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 We discussed trial of naltrexone for her chronic pain. Naltrexone 1-4.5 mg qd. Would need to send rx to compounding pharmacy in [place]. Reviewed MOA, side effects. She would also like to get involved in resistance band training. >50% of this 40 minute appointment was spent in face to face counseling. [facility]: S/P LT partial thyroidectomy. TSH annually. She is not on thyroid replacement. [facility] visit: Has been on atorvastatin 20 mg qd since 10/2019. She is tolerating well. Repeat FLP and CMP. 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 Requested [facility] to review. Order Home Sleep Study, [...] Physician Member Role: Informed Provider Address: Address: [facility] [address] [address]- Care Team Related Persons Name: EMY COBOS Address: Home [address] [place] [address], [phone]
--- OUTSIDE RECORDS SUMMARY | 2023-10-04 01:02 | XMS_ITS | Continuity of Care Document ---
Author Organization [facility] Address [address] [place] [address] Care Team Providers Care Cellular Equipment Repairer Name Role Phone Kathleen Diazbedeng Echols Primary Care Physician Encounter [facility] [id number] Date(s): 12/28/22 - 12/28/22 [facility] [address] [place] [address] Discharge Disposition: Home or Self Care Attending Physician: Sindhu Jacobs BRAKE REPAIRER AIR Allergies, Adverse Reactions, Alerts Substance Reaction Severity [...] Plan Future Appointments Future Scheduled Tests Radiology* MRI Spine Lumbar w/ + w/o Contrast 12/22/22 * MRI Spine Lumbar w/ + w/o Contrast 12/22/22 * MRI Spine Lumbar w/o Contrast 12/22/22 Immunizations Given and Recorded Vaccine Date Status [...] immune globulin 06/05/07 Recorded 1Result Comment: betzaida [facility] 2Result Comment: Cloth Doubling Machine Operator: GlaxoSmithKline 3Result Comment: Cloth Doubling Machine Operator: Sanofi Pasteur Medications acetaminophen 325 mg oral tablet 650 mg = 2 tab, Oral, every 4 hr, PRN other (see comment), as needed, 0 Refill(s) Start Date: 07/08/21 Status: Ordered atorvastatin 20 mg oral tablet 1 tab, Oral, every morning, # 90 tab, 0 Refill(s), Pharmacy: [id number], 165, cm, 04/12/22 13:34:00 EST, Height/Length Dosing, 59.87, kg, 04/12/22 13:34:00 EST, Weight Dosing Start Date: 11/08/22 Status: Ordered baclofen 10 mg oral tablet [...] 0 Refill(s) Start Date: 09/16/22 Status: Ordered Medrol Dosepak 4 mg oral tablet 1 packets, Oral, Daily, as directed on package labeling, # 21 tab, 0 Refill(s), Pharmacy: [id number], 165, cm, 04/12/22 13:34:00 EST, Height/Length Dosing, 59.87, kg, 04/12/22 13:34:00 EST, Weight Dosing Start Date: 12/22/22 Stop Date: 12/28/22 Status: Ordered meloxicam 7.5 mg oral tablet 7.5 mg = 1 tab, Oral, BID, 0 Refill(s) Start Date: 12/22/22 Status: Ordered Nurtec ODT 75 mg oral tablet, disintegrating 0 Refill(s) Start Date: 08/16/22 Status: Ordered prochlorperazine 10 mg oral tablet 10 mg = 1 tab, Oral, every 8 hr, PRN other (see comment), as needed per [facility] headache clinic Start Date: 07/08/21 Status: Ordered traZODone 100 mg oral tablet See Instructions, TAKE 1 TABLET BY MOUTH ONCE DAILY AT BEDTIME, # 90 tab, 3 Refill(s), Pharmacy: [id number], 165, cm, 04/12/22 13:34:00 EST, Height/Length Dosing, 59.87, kg, 04/12/22 13:34:00 EST, Weight Dosing Start Date: 11/09/22 Status: Ordered Ubrelvy 100 mg oral tablet [...] meds as of . Lamictal 100mg BID. [place] ER 450mg 1 1/2 tabs qhs. cymbalta 60mg. Zalephon for sleep. Has seen Dr. Singer at [facility]. 3From 06-12-2020 visit: 12/03/19: New diagnosis of [...] prior to sleep studies. see narcolepsy section [facility]: Medications trialed and unable to tolerate TCAs, duloxetine, gabapentin, lyrica, cyclobenzaprine. She has seen rheumatology . 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 We discussed trial of naltrexone for her chronic pain. Naltrexone 1-4.5 mg qd. Would need to send rx to compounding pharmacy in [place]. Reviewed MOA, side effects. She would also like to get involved in resistance band training. >50% of this 40 minute appointment was spent in face to face counseling. [facility] visit: S/P LT partial thyroidectomy. TSH annually. She is not on thyroid replacement. [facility] visit: Has been on atorvastatin 20 mg qd since 10/2019. She is tolerating well. Repeat FLP and CMP. 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 Requested [facility] records to review. Order Home Sleep Study, [...] Range]: 1 Peripheral Pulse Rate [60-100 bpm] 92 bp m (12/28/22 2:52 PM) Blood Pressure [90-140/60-90 mmHg] 103/6 6mmHg (12/28/22 2:52 PM) Mean Arterial Pressure, Cuff [65-140 mmH g] 78 mmHg (12/28/22 2:52 PM) Weight 68.49 kg (12/28/22 2:52 PM) Weight Measured (lbs) 150.994 lb (12/28/22 2:52 PM) Weight Dosing 68.490 kg (12/28/22 2:52 PM) Height 165 cm (12/28/22 2:52 PM) Height/Length Measured (inches) 64.96 in (12/28/22 2:52 PM) BSA Measured 1.77 m2 (12/28/22 2:52 PM) Body Mass Index 25.16 kg/m2 (12/28/22 2:52 PM) Social History Social History Type Response Smoking Status Smoking tobacco use: Never tobacco user;Never 1 entered on: 08/16/22 Sex Female 1How much tobacco do you chew: none What was the date of your most recent tobacco screenin05-25-2021 Patient Care team information Care Team Personnel Name: Dina Diaz Position: Physician Member Role: Informed Provider Address: Address: [facility] [address] [address] Care Team Related Persons Name: EMY COBOS Address: Home [address] [place] [phone]
--- OUTSIDE RECORDS SUMMARY | 2023-10-04 01:02 | XMS_ITS | Continuity of Care Document ---
Author Organization [facility] Address [address] [place] [address] Care Team Providers Care Instructional Design Consultant Name Role Phone Karissarosalie Dina C Primary Care Physician [phone] Encounter [facility] [id number] Date(s): 11/10/22 - 11/10/22 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, 165, cm, 04/12/22 [...] spasm, # 30 tab, 0 Refill(s), Pharmacy: [id number], 165, cm, 03/28/22 [...] hr, # 30 tab, 0 Refill(s), Pharmacy: [id number], 165, cm, 03/28/22 [...] PRN other (see comment), as needed per [facility] headache clinic Start Date: 07/08/21 Status: Ordered traZODone 100 mg oral tablet See Instructions, TAKE 1 TABLET BY MOUTH ONCE DAILY AT BEDTIME, # 90 tab, 3 Refill(s), Pharmacy: [id number], 165, cm, 04/12/22 [...] meds as of . Lamictal 100mg BID. [place] ER 450mg 1 1/2 tabs qhs. cymbalta 60mg. Zalephon for sleep. Has seen Dr. Singer at [facility]. 3From 06-12-2020 visit: 12/03/19: New diagnosis of [...] not like how she felt on it [facility] visit: timeline: ESS always very high [...] sleep studies. see narcolepsy section [facility] 12-14-2020 visit: Medications trialed and unable to tolerate TCAs, duloxetine, gabapentin, lyrica, cyclobenzaprine. She has seen rheumatology . 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. We discussed trial of naltrexone for her chronic pain. Naltrexone 1-4.5 mg qd. Would need to send rx to compounding pharmacy in [place]. Reviewed MOA, side effects. She would also like to get involved in resistance band training. >50% of this 40 minute appointment was spent in face to face counseling. 6From 12-14-2020 visit: S/P LT partial thyroidectomy. TSH annually. She is not on thyroid replacement. [facility] 11-[facility]-2020 visit: Has been on atorvastatin 20 mg qd since 10/2019. She is tolerating well. Repeat FLP and CMP. 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 Requested [facility] records to review. Order Home Sleep [...] Physician Member Role: Informed Provider Address: Address: [facility] [address] [address]- Care Team Related Persons Name: GOLDIEEMY CAMPBELL Address: Home [address] [place] [phone]
--- OUTSIDE RECORDS SUMMARY | 2023-10-04 01:02 | XMS_ITS | Continuity of Care Document ---
Author Organization [facility] Address [address] [place] [address] Care Team Providers Care Bobbin Marker Name Role Phone KarissaDina wiggins Primary Care Physician [phone] Encounter [facility] Date(s): 08/31/22 - 08/31/22 [facility] [address] [place] [address] Encounter Diagnosis Hyperlipidemia(Discharge Diagnosis) - 08/31/22 Chest pain(Discharge Diagnosis) - 08/31/22 Abnormal stress test(Discharge Diagnosis) - 08/31/22 Discharge Disposition: Home or Self Care Attending [...] Appointments Future Scheduled Tests Radiology* MG Mammo Diagnostic Bilateral w/ Gil 05/26/22 Functional Status 08/31/22 Other exposure to Infectious Disease Non e [...] tetanus immune globulin 06/05/07 Recorded 1Result [facility] 2Result Comment: Director Risk: GlaxoSmithKline 3Result Comment: Director Risk: Sanofi Pasteur Medications acetaminophen 325 mg oral tablet 650 mg = 2 tab, Oral, every 4 hr, PRN other (see comment), as needed, 0 Refill(s) Start Date: 07/08/21 Status: Ordered atorvastatin 20 mg oral tablet 20 mg = 1 tab, Oral, every morning, # 90 EA, 3 Refill(s), Pharmacy: [id number], 165, cm,08/14/21 10:33:00 [...] spasm, # 30 tab, 0 Refill(s), Pharmacy: [id number], 165, cm, 03/28/22 [...] hr, # 30 tab, 0 Refill(s), Pharmacy: [id number], 165, cm, 03/28/22 10:18:00 EST, Height/Length Dosing, 62, kg, 03/28/22 10:18:00 EST, Weight Dosing Start Date: 03/28/22 Status: Ordered Nurtec ODT 75 mg oral tablet, disintegrating 0 Refill(s) Start Date: 08/16/22 Status: Ordered prochlorperazine 10 mg oral tablet 10 mg = 1 tab, Oral, every 8 hr, PRN other (see comment), as needed per [facility] headache clinic Start Date: 07/08/21 Status: Ordered traZODone 100 mg oral tablet See Instructions, TAKE 1 TABLET BY MOUTH ONCE DAILY AT BEDTIME, # 90 tab, 0 Refill(s), Pharmacy: [id number], 165, cm, 04/12/22 [...] meds as of . Lamictal 100mg BID. [place] [facility] 450mg 1 1/2 tabs qhs. cymbalta 60mg. Zalephon for sleep. Has seen Dr. Singer at [facility]. 3From 06-12-2020 visit: 12/03/19: New [...] not like how she felt on it [facility] 05-[facility]-2020 visit: timeline: ESS always very high [...] prior to sleep studies. see narcolepsy section [facility] 12-14-2020 visit: Medications trialed and unable to tolerate TCAs, duloxetine, gabapentin, lyrica, cyclobenzaprine. She has seen rheumatology . 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 We discussed trial of naltrexone for her chronic pain. Naltrexone 1-4.5 mg qd. Would need to send rx to compounding pharmacy in [place]. Reviewed MOA, side effects. She would also like to get involved in resistance band training. >50% of this 40 minute appointment was spent in face to face counseling. [facility] 12-14-2020 visit: S/P LT partial thyroidectomy. TSH annually. She is not on thyroid replacement. [facility] 11-03-2020 visit: Has been on atorvastatin 20 mg qd since 10/2019. She is tolerating well. Repeat FLP and CMP. 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 Requested [facility] records to review. Order Home Sleep Study, [...] Most recent to oldest [Reference Range]: 1 2 Peripheral Pulse Rate [60-100 bpm] 91 bp m (08/31/22 10:40 AM) Blood Pressure [90-140/60-90 mmHg] 86/53 mmHg *LOW* (08/31/22 10:46 AM) 87/50mmHg *LOW* (08/31/22 10:40 AM) Weight 66.8 kg (08/31/22 10:40 AM) Weight Measured (lbs) 147.269 lb (7/5/23 10:40 AM) Social History Social History Type Response Smoking Status Smoking tobacco use: Never tobacco user;Never 1 entered on: 08/16/22 Sex Female 1How much tobacco do you chew: none What was the date of your most recent tobacco screenin05-25-2021 Physician Outpatient Note * Larry Feldman MD: PERFORM Event Display: Office Clinic Note Physician Authored Date: [id number] CODY COBOS :1970 Age:52 years Sex:Female Visit Date:08/31/2022 Primary Care Physician: Dina Diaz History of Present Illness Cardiac problems: 1. ??Anxiety 2. ??Bipolar disorder 3. ??Borderline personality disorder 4.?? Fibromyalgia 5.?? Hyperlipidemia 6. ??Hypothyroidism 7. ??Depression 8. ??Obstructive sleep apnea 9.?? Morbid obesity 10. ??Tachycardia, possible SVT ?? This is a 52 year old woman who I last saw here in May of this year. She had complaints of chest pain with exertion that she reports has been going on for 5 years. A Lexiscan was performed, which did show possible anterior ischemia. She is here today to discuss the findings. ?? She continues to have chest discomfort.?? She describes it as a??pressure in the center of her chest??which is mildly can last for??a couple of minutes.?? There is no radiation, there is no diaphoresis, there is no associated shortness of breath. ??It does cause significant nausea??however, withoutvomiting.?? It can happen at rest or with exertion,??she really never notices it when she does her daily walk which is about a mile??which she has been trying to gradually increase since she had backsurgery earlier this year. ?? This pain has been a concern for about 5 years or longer. ?? She does report occasionally that her heart??races and pounds??quickly; this was worked up with??a monitor about a year ago which was reassuring.?? Otherwise there is no shortness of breath, syncope,or lower extremity edema. ?? I reviewed with her that given her chest discomfort and the abnormal stress test,??I think??catheterization is a reasonable next step.?? I am actually suspicious that this is a false positive,??and rather than start a cardioprotective regimen/antianginal regimen,??I would like to confirm the diagnosis before we move ahead. ?? She??does report chronic fatigue, which may be related to coronary disease,??but I think is morelikely is related to chronic hypotension.?? Before I start midodrine or Florinef, I would like to make sure the coronaries are clean. ??She understands that approach. Review of Systems A complete review of systems is negative other than as noted in the history of present illness. Physical Exam Vitals & Measurements HR:??91??(Peripheral)?? BP:??86/53?? SpO2:??99%?? WT:??66.8??kg?? HEENT: Normocephalic, atraumatic Respirations: Clear to auscultation bilaterally with no wheezes rubs or rhonchi Cardiac: Irregularly irregular, normal S1, S2, no murmurs gallops or rubs Abdomen: Nontender nondistended normal active bowel sounds Extremities: 2+ dorsalis pedis pulses bilaterally with no significant edema Medical Decision Making Data Reviewed: 02/10/2020: Exercise tolerance test: She exercised for [...] limits. ??No evidence ofischemia or prior infarct. Lexiscan: 08/02/22, 1.?? Possible area of mild ischemia involving the anterior wall/LAD territory.2.?? Normal LV function with normal wall motion and ejection fraction greater than 60%. Stress: 08/02/22. DEBBIE. METS 1.00. Max HR 106bpm.This value represents 62% of max predicted HR. Max BP 97/58 EK08/31/2022: Sinus rhythm 82 bpm. ??Axes intervals within normal limits. ??No evidence of ischemia or prior infarct. ?? 52-year-old woman who is doing well. ?? Chest discomfort:??She now has a??mildly abnormal stress test. ??My suspicion that??this represents??symptomatic disease is actually quite low??but given??the concern here, we will arrange for cardiac catheterization??more to confirm the diagnosis??than for anything else. ??My suspicion is low enough in this circumstance that I do not think we need to start a cardioprotective/antianginal regimen??at this point,??as she has had stable symptoms now for many years??and these findings are more likely to be consistent with breast attenuation artifact and they are with actual disease,??but I think it is worth getting a look to make sure that we do not need to be more aggressive and that were not ignoring significant disease. ?? Fatigue: This is likely related to her chronic hypotension. ??She may gain some benefit from midodrine or Florinef, although I was clear with her that there are no promises in that area. ??Before starting those, however, I would??like to make sure that the catheterization is reassuring. ?? Plan to see Cody back here in a couple of months, once catheterization is complete.?? We can review her??findings??and talk about midodrine or Florinef at that point. ?? Her palpitations have been worked up??and I am glad to see that she is doing well. ?? It is always a pleasure to Cody.?? We will get back together soon Clinic Assessment/Plan Abnormal stress test??R94.39 Actions: FUTURE - Follow-Up Appointment Request LAINA, *Est. 11/01/22 +/- 14 days, Future Order, 40-min - to follow-up cath, In [facility] COMPLETED - Referral Management, Medical Service: Cardiology, Reason: left heart cath at for CP and abnormal nuc, Start: 08/31/22 ?? Chest pain??R07.9 Actions: FUTURE - Follow-Up Appointment Request [facility], *Est. 11/01/22 +/- 14 days, Future Order, 40-min - to follow-up cath, In [facility] COMPLETED - Referral Management, Medical Service: Cardiology, Reason: left heart cath at for CP and abnormal nuc, Start: 08/31/22 ?? Hyperlipidemia??E78.5 Actions: COMPLETED - [id number] Office/Outpatient Visit - Established Patient, Level 4 (30-39 min)., 08/31/22 10:37:00 EDT, Hyperlipidemia COMPLETED - CV ECG Clinic, 08/31/22 10:40:00 EDT, Routine, Reason: Other (please specify), Stop date and time 08/31/22 10:40:00 EDT, Hyperlipidemia, ORD_SET_REQ_DT_RANGE, [facility]by's Internal Person Id FUTURE - Follow-Up Appointment Request [facility], *Est. 11/01/22 +/- 14 days, Future Order, 40-min - to follow-up cath, In Approximately, [facility] COMPLETED - Follow-Up Appointment Request [facility], 08/31/22 10:40:00 EDT, In [facility], 08/31/22 10:40:00 EDT COMPLETED - Referral Management, Medical Service: Cardiology, Reason: left heart cath at for CP and abnormal nuc, Start: 08/31/22 ?? Problem List/Past Medical History Ongoing Abnormal cervical [...] Tachycardia Toxic uninodular goiter Vitamin D deficiency Well adult exam Historical Severe recurrent major depression Procedure/Surgical History [...] (02/27/2006)???Endometrial ablation (11/28/1999)???Cholecystectomy (07/28/1997)???Tubal ligation (02/28/1996) Medications What How Much When Why Instructions Unchanged acetaminophen (acetaminophen 325 mg oral tablet) 2 tab Oral (given by mouth) Every 4 hours as needed for other (see comment) as needed ?? Unchanged atorvastatin (atorvastatin 20 mg oral tablet) 1 tab Oral (given by mouth) Every morning Unchanged baclofen (baclofen 10 mg oral tablet) 90 EA, TAKE 1 TABLET BY MOUTH THREE TIMES DAILY NEEDED FOR MILD TO MODERATE HEADACHES - MAX DAILY DOSE 3 TABLETS (30MG) ?? Unchanged cyclobenzaprine (cyclobenzaprine 10 mg oral tablet) 1 tab Oral (given by mouth) 3 times a day as needed for as needed for muscle spasm Central stenosis of spinal canal Nerve root compression Annular tear of lumbar disc Unchanged EPINEPHrine (EPINEPHrine 0.3 mg injectable kit) 1 auto Intramuscular (in a muscle) As Directed as needed for other (see comment) as needed ?? Unchanged hydrOXYzine (hydrOXYzine hydrochloride 10 mg oral tablet) 30 tab ?? Unchanged ibuprofen (ibuprofen 800 mg oral tablet) 1 tab Oral (given by mouth) Every 8 hours Central stenosis of spinal canal Nerve root compression Annular tear of lumbar disc Unchanged prochlorperazine (prochlorperazine 10 mg oral tablet) 1 tab Oral (given by mouth) Every 8 hours as needed for other (see comment) as needed per [facility] headache clinic ?? Unchanged rimegepant (Nurtec ODT 75 mg oral tablet, disintegrating) Unchanged traZODone (traZODone 100 mg oral tablet) See instructions TAKE 1 TABLET BY MOUTH ONCE DAILY AT BEDTIME ?? Unchanged ubrogepant (Ubrelvy 100 mg oral tablet) See instructions TAKE 1 TABLET BY MOUTH NEEDED (TAKE AT ONSET OF MIGRAIN, CAN REPEAT DOSE IN 2 HOURS, MAX DOSE OF200 MG) ?? Allergies SHELLFISH DERIVED??(Anaphylactic reaction) rimegepant??(Eruption) dilTIAZem??(Depression, Chest pain) ARIPiprazole DilTIAZem (Eqv-Cardizem CD)??(Unknown) HYDROcodone??(Unknown) Latex??(no reaction) Peanuts Provigil??(Unknown) Roxicet??(Unknown) SOY TREE AND SHRUB POLLEN Tree Nuts??(Unknown) WHEAT acetaminophen-hydrocodone??(Unknown) acetaminophen-oxycodone??(Unknown) amitriptyline armodafinil??(Other) codeine imipramine??(Unknown) metoprolol??(Depression) modafinil??(runny nose, Difficulty swallowing, Other) morphine oxyCODONE Social History Alcohol Current- Comments: None Rarely Electronic Cigarette/Vaping Electronic Cigarette Use: Never. 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 Home/Environment Lives with Mother. Nutrition/Health Diet: Regular. [...] Mitral valve prolapse: Mother. Rheumatoid arthritis: Sister. Immunizations Vaccine Date Status zoster vaccine, inactivated 06/12/2022 Recorded Comments : [employer] Zillabyte influenza virus vaccine, inactivated 12/22/2021 Given influenza virus vaccine, live 11/10/2020 Recorded SARS-CoV-2 (COVID-19) mRNA-1273 vaccine 07/21/2020 Recorded SARS-CoV-2 (COVID-19) mRNA-1273 vaccine 06/21/2020 Recorded influenza virus vaccine, live 05/01/2018 Recorded measles/mumps/rubella virus vaccine 04/01/2014 Recorded influenza, unspecified formulation 04/01/2014 Recorded tetanus/diphth/pertuss (Tdap) adult/adol 05/24/2013 Recorded influenza, unspecified formulation 12/31/2010 Recorded Comments : Director Risk: GlaxoSmithKline Td(adult) unspecified formulation 04/27/2010 Recorded Td(adult) unspecified formulation 04/27/2010 Recorded influenza, unspecified formulation 01/18/2010 Recorded Comments : Director Risk: Sanofi Pasteur tetanus immune globulin 06/05/2007 Recorded Electronically Signed on 08/31/22 11:10 AM Larry Feldman MD Patient Care team information Care Team Personnel Name: Dina Diaz Position: Physician Member Role: Informed Provider Address: Address: [facility] [address] [address]- Care Team Related Persons Name: EMY COBOS Address: Home [address] [place] [phone] Name: EMY COBOS Address: Home Name: AMARIS DE LA FUENTE Address: Home
--- OUTSIDE RECORDS SUMMARY | 2023-10-04 01:02 | XMS_ITS | Continuity of Care Document ---
Author Organization [facility] Address [address] [place] [address] Care Team Providers Care Financial Planning Assistant Name Role Phone Dina Diaz Primary Care Physician Encounter [facility] Date(s): 03/28/22 - 03/28/22 [facility] [address] [place] [address] Encounter Diagnosis Central stenosis of spinal canal(Discharge Diagnosis) - 03/28/22 Nerve root compression(Discharge Diagnosis) - 03/28/22 Annular tear of lumbar disc(Discharge Diagnosis) - 03/28/22 Spinal stenosis, lumbar region without neurogenic claudication(Final) - Nerve root and plexus disorder, unspecified(Final) - Other intervertebral disc degeneration, lumbar region(Final) - Discharge Disposition: Home or Self Care Attending Physician: Chuy Pereyra MD Admitting Physician: Chuy Pereyra MD Allergies, Adverse Reactions, Alerts Substance Reaction [...] Scheduled Tests Laboratory* Lipid Panel 07/13/21 Radiology* MG Mammo Screening Right w/ Gil 07/28/22 * MRI Shoulder w/o Contrast Left 09/01/21 * MG Mammo Diagnostic Left 07/28/22 Functional Status 03/28/22 Family Member Travel History No recent t christiano Recent Travel History No recent travel Other exposure to Infectious Disease Non e [...] tetanus immune globulin 06/05/07 Recorded 1Result Comment: Subject Scientific Research: PaeDae 2Result Comment: Subject Scientific Research: [employer] Medications acetaminophen 325 mg oral tablet 650 mg = 2 tab, Oral, every 4 hr, PRN other (see comment), as needed, 0 Refill(s) Start Date: 07/08/21 Status: Ordered atorvastatin 20 mg oral tablet 20 mg = 1 tab, Oral, every morning, # 90 EA, 3 Refill(s), Pharmacy: [id number], 165, cm,08/14/21 10:33:00 EDT, Height/Length Dosing, 56, kg, 08/14/21 10:33:00 EDT, Weight Dosing Start Date: 11/25/21 Status: Ordered buPROPion 300 mg/24 hours (XL) oral tablet, extended release 300 mg = 1 tab, Oral, every morning, # 30 tab, 2 Refill(s), Pharmacy: [place] [id number], 165, cm, 08/14/21 10:33:00 EDT, Height/Length Dosing, 56, kg, 08/14/21 10:33:00 EDT, Weight Dosing Start Date: 02/11/22 Stop Date: 05/12/22 Status: Ordered Corlanor 5 mg oral tablet 5 mg = 1 tab, Oral, BID w/Meals, # 60 tab, 11 Refill(s), Pharmacy: [place] [id number], 165, cm, 02/19/22 9:21:00 EST, Height/Length Dosing, 58, kg, 02/19/22 9:21:00 EST, Weight Dosing Start Date: 03/12/22 Status: Ordered cyclobenzaprine 10 mg oral tablet 10 mg = 1 tab, Oral, TID, PRN as needed for muscle spasm, # 30 tab, 0 Refill(s), Pharmacy: [place] [id number], 165, cm, 03/28/22 10:18:00 EST, Height/Length Dosing, 62, kg, 03/28/22 10:18:00 EST, Weight Dosing Start Date: 03/28/22 Status: Ordered cyclobenzaprine 5 mg oral tablet See Instructions, Take 1-2 tablets every 8 hours as needed for muscle spasm, # 30 tab, 0 Refill(s),Pharmacy: [place] [id number], 165, cm, 08/14/21 10:33:00 EDT, Height/Length Dosing, [...] hr, # 30 tab, 0 Refill(s), Pharmacy: [place] [id number], 165, cm, 03/28/22 10:18:00 EST, Height/Length Dosing, 62, kg, 03/28/22 10:18:00 EST, Weight Dosing Start Date: 03/28/22 Status: Ordered Lyrica 25 mg oral capsule 25 mg = 1 cap, Oral, BID, # 56 cap, 0 Refill(s), Pharmacy: [id number], 165, cm, 229:21:00 EST, Height/Length Dosing, 58, kg, 02/19/22 9:21:00 EST, Weight Dosing Start Date: 03/16/22 Stop Date: 04/13/22 Status: Ordered multivitamin adult, oral tablet Orally Once a day, 0 Refill(s) Start Date: 03/15/22 Status: Ordered predniSONE 10 mg oral tablet See Instructions, 60 mg x 3 days, 50 mg x 3 days, 40 mg x 3 days,30mgx 3 days 20 mg x 3 days, 10 mgx 3 days and then stop taper., # 63 tab, 0 Refill(s), Pharmacy: [place] [id number], 165, cm, 03/28/22 10:18:00 EST, Height/Length Dosing, 62, kg, 01... Start Date: 03/29/22 Status: Ordered predniSONE 20 mg oral tablet 40 mg = 2 tab, Oral, Daily, # 10 tab, 0 Refill(s), Pharmacy: [place] [id number], 165, cm, 03/28/22 10:18:00 EST, Height/Length Dosing, 62, kg, 03/28/22 10:18:00 EST, Weight Dosing Start Date: 03/28/22 Stop Date: 04/02/22 Status: Ordered predniSONE 20 mg oral tablet 40 mg = 2 tab, Oral, Daily, # 10 tab, 0 Refill(s), Pharmacy: [id number], 165, cm, 02/19/22 9:21:00 EST, Height/Length Dosing, 58, kg, 02/19/22 9:21:00 EST, Weight Dosing Start Date: 03/11/22 Stop Date: 03/16/22 Status: Ordered prochlorperazine 10 mg oral tablet 10 mg = 1 tab, Oral, every 8 hr, PRN other (see comment), as needed per [facility] headache clinic Start Date: 5/12/22 Status: Ordered traZODone 100 mg oral tablet 100 mg = 1 tab, Oral, every night at bedtime, 0 Refill(s) Start Date: 07/08/21 Status: Ordered Tylenol Extra Strength 500 mg oral tablet 500 mg = 1 tab, Oral, every 4 hr, PRN as needed for pain, # 24 tab, 0 Refill(s), Pharmacy: [id number], 165, cm, 03/28/22 10:18:00 EST, [...] I, # 7 tab, 0 Refill(s), Pharmacy: [id number], 165, cm,08/14/21 10:33:00 EDT, Height/Length Dosing, 56, kg, 08/14/21 10:33:00 EDT, Weight Dosing Start Date: 01/17/22 Stop Date: 01/24/22 Status: Ordered vilazodone 20 mg oral tablet 20 mg = 1 tab, Oral, Daily, Step II, # 30 tab, 2 Refill(s), Pharmacy: [id number], 165, cm, 08/14/21 10:33:00 EDT, [...] meds as of . Lamictal 100mg BID. [place] ER 450mg 1 1/2 tabs qhs. cymbalta 60mg. Zalephon for sleep. Has seen Dr. Singer at [facility]. 3From 06-12-2020 visit: 12/03/19: New diagnosis [...] prior to sleep studies. see narcolepsy section [facility] 12-14-2020 visit: Medications trialed and unable to tolerate TCAs, duloxetine, gabapentin, lyrica, cyclobenzaprine. She has seen rheumatology . 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 [facility]. We discussed trial of naltrexone for her chronic pain. Naltrexone 1-4.5 mg qd. Would need to send rx to compounding pharmacy in [place]. Reviewed MOA, side effects. She would also like to get involved in resistance band training. >50% of this 40 minute appointment was spent in face to face counseling. 6[facility] 12-14-2020 visit: S/P LT partial thyroidectomy. TSH annually. She is not on thyroid replacement. 7[facility] 11-03-2020 visit: Has been on atorvastatin 20 mg qd since 10/2019. She is tolerating well. Repeat FLP and CMP. 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 Requested [facility] records to review. Order Home Sleep Study, [...] USVVS, TVT, cystocele repair 4shoulder/labrum repair 09/2009 Results Laboratory List Name Date CBC w/ Diff 03/28/22 Comprehensive Metabolic Panel (CMP) 03/28 Test Urine Qual 03/28/22 Urinalysis with Micro if Indicated and C ulture if Indicated 03/28/22 Urinalysis Microscopic 03/28/22 Automated Diff 03/28/22 Most recent to oldest [Reference Range]: 1 WBC [5.0-10.0 x10^3/mcL] 7.1 x10^3/mcL (03/28/22 10:50 AM) RBC [4.1-5.3 x10^6/mcL] 4.6 x10^6/mcL (03/28/22 10:50 AM) Neutro Auto [40.0-75.0 %] 59.6 % (03/28/22 10:50 AM) Lymph Auto [20.0-50.0 %] 28.5 % (03/28/22 10:50 AM) [place] Auto [2.0-15.0 %] 9.1 % (03/28/22 10:50 AM) Basophil Auto [0.0-1.0 %] 0.4 % (03/28/22 10:50 AM) BUN [7-18 mg/dL] 19 mg/dL *HI* (03/28/22 10:50 AM) UA Color Yellow (03/28/22 10:39 AM) UA WBC [0-3] 3-5 *ABN* (03/28/22 10:39 AM) Glucose Level [74-106 mg/dL] 100 mg/dL (03/28/22 10:50 AM) Potassium Level [3.5-5.1 mmol/L] 3.8 mmo l/L (03/28/22 10:50 AM) MCV [80.0-96.0] 91.8 (03/28/22 10:50 AM) UA Urobilinogen Normal (03/28/22 10:39 AM) UA Bili [Negative] Negative (03/28/22 10:39 AM) UA Ketones Negative (03/28/22 10:39 AM) AST [15-37 unit/L] 13 unit/L *LOW* (03/28/22 10:50 AM) ALT [14-59 unit/L] 23 unit/L (03/28/22 10:50 AM) MCHC [31.0-35.0 g/dL] 33.6 g/dL (03/28/22 10:50 AM) Sodium Level [136-145 mmol/L] 138 mmol/L (03/28/22 10:50 AM) UA RBC [0-2] 0-2 (03/28/22 10:39 AM) UA Leuk Est 1+ *ABN* (03/28/22 10:39 AM) UA Nitrite Negative (03/28/22 10:39 AM) UA Glucose [Negative] Negative (03/28/22 10:39 AM) Hct [37.0-47.0 %] 42.5 % (03/28/22 10:50 AM) UA Bacteria Rare /HPF (03/28/22 10:39 AM) Calcium Level [8.5-10.1 mg/dL] 9.1 mg/dL (03/28/22 10:50 AM) Albumin Level [3.4-5.0 g/dL] 4.0 g/dL (03/28/22 10:50 AM) Protein Total [6.4-8.2 g/dL] 7.4 g/dL (03/28/22 10:50 AM) UA Protein Negative (03/28/22 10:39 AM) MCH [26.0-32.0 pg] 30.9 pg (03/28/22 10:50 AM) Neutro Absolute 4.2 x10^3/mcL *NA* (03/28/22 10:50 AM) Bilirubin Total [0.2-1.0 mg/dL] 0.4 mg/d L (03/28/22 10:50 AM) Hgb [12.0-16.0 g/dL] 14.3 g/dL (03/28/22 10:50 AM) Alk Phos [46-146 unit/L] 77 unit/L (03/28/22 10:50 AM) UA Blood Trace *ABN* (03/28/22 10:39 AM) UA Mucous Rare /HPF *ABN* (03/28/22 10:39 AM) UA Spec Grav 1.020 *NA* (03/28/22 10:39 AM) Platelets [130-450 x10^3/mcL] 294 x10^3/ mcL (03/28/22 10:50 AM) CO2 [21-32 mmol/L] 30 mmol/L (03/28/22 10:50 AM) UA Squam Epithelial [None Seen] Few *ABN* (03/28/22 10:39 AM) UA pH 6.0 *NA* (03/28/22 10:39 AM) eGFR Non-AA [>=60] 102 (03/28/22 10:50 AM) eGFR AA [>=60] 102 (03/28/22 10:50 AM) UA Appear Clear (03/28/22 10:39 AM) Chloride Level [98-107 mmol/L] 101 mmol/ L (03/28/22 10:50 AM) RDW-CV [11.7-17.0 %] 13.0 % (03/28/22 10:50 AM) Imm Gran Auto [0.0-0.9 %] 0.3 % (03/28/22 10:50 AM) UA Culture Ind?. Indicated (03/28/22 10:39 AM) Creatinine Level [0.55-1.02 mg/dL] 0.72 mg/dL (03/28/22 10:50 AM) Eos, Auto [1.0-6.0 %] 2.1 % (03/28/22 10:50 AM) U hCG Ql Negative (03/28/22 10:39 AM) Orders for Microbiology Reports Name Date Urine Culture 03/28/22 Microbiology Reports TEST:Urine Culture STATUS:Order in Progress BODY SITE: SOURCE:Urine COLLECTED DATE/TIME:03/28/22 10:39 AM PRELIMINARY REPORT <10,000 cfu/ml Gram Positive Cocci Vital Signs Most recent to oldest [Reference Range]: 1 Temperature Temporal Artery [36-38 Deg C ] 37 Deg C (03/28/22 10:28 AM) Temperature Temporal Artery (DegF) [97.3 -100 Deg F] 98.6 Deg F (03/28/22 10:28 AM) Peripheral Pulse Rate [60-100 bpm] 90 bp m (03/28/22 10:28 AM) Respiratory Rate [12-24 br/min] 16 br/mi n (03/28/22 10:28 AM) Blood Pressure [90-140/60-90 mmHg] 109/7 2mmHg (03/28/22 10:28 AM) Weight Dosing 62.00 kg (03/28/22 10:18 AM) Weight Estimated 62.00 kg (03/28/22 10:07 AM) Height/Length Dosing 165.000 cm (03/28/22 10:18 AM) Height/Length Estimated 165.000 cm (03/28/22 10:07 AM) Social History Social History Type Response Smoking Status Smoking tobacco use: Never tobacco user;Never 1 entered on: 07/27/21 Sex Female 1How much tobacco do you chew: none What was the date of your most recent tobacco screenin05-25-2021 Hospital Discharge Instructions Patient Education 03/28/2022 12:44:33 Spinal Stenosis Spinal Stenosis Spinal stenosis is a condition that happens when the spinal canal narrows. The spinal canal is the space between the bones of your spine (vertebrae). This narrowing puts pressure on the spinal cord or nerves. Spinal stenosis can affect the vertebrae in the neck, upper back, and lower back. This condition can range from mild to severe. In some cases, there are no symptoms. What are the causes? This condition is caused by areas of bone pushing into the spinal canal. This condition may be present at (congenital), or it may be caused by: ??? Slow breakdown of your vertebrae (spinal degeneration). This usually starts around 50 years of age. ??? Injury (trauma) to your spine. ??? Tumors in your spine. ??? Calcium deposits in your spine. What increases the risk? The following factors may make you more likely to develop this condition: ??? Being older than age 50. ??? Having a problem present at with an abnormally shaped spine (congenitalspinal deformity),such as scoliosis. ??? Having arthritis. What are the signs or symptoms? Symptoms of this condition include: ??? Pain in the neck or back that is generally worse with activities, particularly when you stand or walk. ??? Numbness, tingling, hot or cold sensations, weakness, or tiredness (fatigue) in your leg or legs. ??? Pain going from the buttock, down the thigh, and to the calf (sciatica). This can happen in oneor both legs. ??? Frequent episodes of falling. ??? A foot-slapping gait that leads to muscle weakness. In more severe cases, you may develop: ??? Problems having a bowel movement or urinating. ??? Difficulty having sex. ??? Loss of feeling in your legs and inability to walk. Symptoms may come on slowly and get worse over time. In some cases, there are no symptoms. How is this diagnosed? This condition is diagnosed based on your medical history and a physical exam. You will also have tests, such as an MRI, a CT scan, or an X-ray. How is this treated? Treatment for this condition often focuses on managing your pain and any other symptoms. Treatment may include: ??? Practicing good posture to lessen pressure on your nerves. ??? Exercising to strengthen muscles, build endurance, improve balance, and maintain range of motion. This may include physical therapy to restore movement and strength to your back. ??? Losing weight, if needed. ??? Medicines to reduce inflammation or pain. This may include a medicine that is injected into your spine (steroidinjection). ??? Assistive devices, such as a corset or brace. In some cases, surgery may be needed. The most common procedure is decompression laminectomy. This is done to remove excess bone that puts pressure on your nerve roots. Follow these instructions at home: Managing pain, stiffness, and swelling ??? Practice good posture. If you were given a brace or a corset, wear it as told by your health care provider. ??? Maintain a healthy weight. Talk with your health care provider if you need help losing weight. ??? If directed, apply heat to the [...] to feel pain, heat, or cold. You may have a greater risk of getting burned. Activity ??? Do all exercises and stretches as told by your health care provider. ??? Do not do any activities that cause pain. Ask your health care provider what activities are safe for you. ??? Do not lift anything that is heavier than 10 lb (4.5 kg), or the limit that you are told by your health care provider. ??? Return to your normal activities as told by your health care provider. Ask your health care provider what activities are safe for you. General instructions ??? Take zbnu-yhw-ycbaaoa and prescription medicines only as told by your health care provider. ??? Do not use any products that contain nicotine or tobacco, such as cigarettes, e-cigarettes, andchewing tobacco. If you need help quitting, ask your health care provider. ??? Eat a healthy diet. This includes plenty of fruits and vegetables, whole grains, and low-fat (lean) protein. ??? Keep all follow-up visits as told by your health care provider. This is important. Contact a health care provider if: ??? Your symptoms do not get better or they get worse. ??? You have a fever. Get help right away if: ??? You have new pain or symptoms of severe pain, such as: ??? New or worsening pain in your neck or upper back. ??? Severe pain that cannot be controlled with medicines. ??? A severe headache that gets worse when you stand. ??? You are dizzy. ??? You have vision problems, such as blurred vision or double vision. ??? You have nausea or you vomit. ??? You develop new or worsening numbness or tingling in your back or legs. ??? You have pain, redness, swelling, or warmth in your arm or leg. Summary ??? Spinal stenosis is a condition that happens when the spinal canal narrows. The spinal canal is the space between the bones of your spine (vertebrae). This narrowing puts pressure on the spinal cord or nerves. ??? This condition may be caused by a defect, breakdown of your vertebrae, trauma, tumors, orcalcium deposits. ??? Spinal stenosis can cause numbness, weakness, or pain in the buttocks, neck, back, and legs. ??? This condition is usually diagnosed with your medical history, a physical exam, and tests, suchas an MRI, a CT scan, or an X-ray. This information is not intended to replace advice given to you by your health care provider. Make sure you discuss any questions you have with your health care provider. Document Revised: 12/12/2019 Document Reviewed: 12/12/2019 [employer] Patient Education ?? 2021 [employer]. 03/28/2022 12:44:27 Back Exercises Back Exercises The following exercises strengthen the muscles that help to support the trunk (torso) and back. They also help to keep the lower back flexible. Doing these exercises can help to prevent or lessen existing low back pain. ??? If you have back pain or discomfort, try doing these exercises 2???3 times each day or as told by your health care provider. ??? As your pain improves, do them once each day, but increase the number of times that you repeat the steps for each exercise (do more repetitions). ??? To prevent the recurrence of back pain, continue to do these exercises once each day or as toldby your health care provider. Do exercises exactly as told by your health care provider and adjust them as directed. It is normalto feel mild stretching, pulling, tightness, or discomfort as you do these exercises, but you should stop right away if you feel sudden pain or your pain gets worse. Exercises Single knee to chest Repeat these steps 3???5 times for each le. Lie on your back on a firm bed or the floor with your legs extended. 2. Bring one knee to your chest. Your other leg should stay extended and in contact with the floor. 3. Hold your knee in place by grabbing your knee or thigh with both hands and hold. 4. Pull on your knee until you feel a gentle stretch in your lower back or buttocks. 5. Hold the stretch for 10???30 seconds. 6. Slowly release and straighten your leg. Pelvic tilt Repeat these steps 5???10 times: 1. Lie on your back on a firm bed or the floor with your legs extended. 2. Bend your knees so they are pointing toward the ceiling and your feet are flat on the floor. 3. Tighten your lower abdominal muscles to press your lower back against the floor. This motion will tilt your pelvis so your tailbone points up toward the ceiling instead of pointing to your feet orthe floor. 4. With gentle tension and even breathing, hold this position for 5???10 seconds. Cat-cow Repeat these steps until your lower back becomes more flexible: 1. Get into a zvoef-zpr-sdiwo position on a firm bed or the floor. Keep your hands under your shoulders, and keep your knees under your hips. You may place padding under your knees for comfort. 2. Let your head hang down toward your chest. Contract your abdominal muscles and point your tailbone toward the floor so your lower back becomes rounded like the back of a cat. 3. Hold this position for 5 seconds. 4. Slowly lift your head, let your abdominal muscles relax, and point your tailbone up toward the ceiling so your back forms a sagging arch like the back of a cow. 5. Hold this position for 5 seconds. Press-ups Repeat these steps 5???10 times: 1. Lie on your abdomen (face-down) on a firm bed or the floor. 2. Place your palms near your head, about shoulder-width apart. 3. Keeping your back as relaxed as possible and keeping your hips on the floor, slowly straighten your arms to raise the top half of your body and lift your shoulders. Do not use your back muscles toraise your upper torso. You may adjust the placement of your hands to make yourself more comfortable. 4. Hold this position for 5 seconds while you keep your back relaxed. 5. Slowly return to lying flat on the floor. Bridges Repeat these steps 10 times: 1. Lie on your back on a firm bed or the floor. 2. Bend your knees so they are pointing toward the ceiling and your feet are flat on the floor. Your arms should be flat at your sides, next to your body. 3. Tighten your buttocks muscles and lift your buttocks off the floor until your waist is at almostthe same height as your knees. You should feel the muscles working in your buttocks and the back ofyour thighs. If you do not feel these muscles, slide your feet 1???2 inches (2.5???5 cm) farther away from your buttocks. 4. Hold this position for 3???5 seconds. 5. Slowly lower your hips to the starting position, and allow your buttocks muscles to relax completely. If this exercise is too easy, try doing it with your arms crossed over your chest. Abdominal crunches Repeat these steps 5???10 times: 1. Lie on your back on a firm bed or the floor with your legs extended. 2. Bend your knees so they are pointing toward the ceiling and your feet are flat on the floor. 3. Cross your arms over your chest. 4. Tip your chin slightly toward your chest without bending your neck. 5. Tighten your abdominal muscles and slowly raise your torso high enough to lift your shoulder blades a tiny bit off the floor. Avoid raising your torso higher than that because it can put too much stress on your lower back and does not help to strengthen your abdominal muscles. 6. Slowly return to your starting position. Back lifts Repeat these steps 5???10 times: 1. Lie on your abdomen (face-down) with your arms at your sides, and rest your forehead on the floor. 2. Tighten the muscles in your legs and your buttocks. 3. Slowly lift your chest off the floor while you keep your hips pressed to the floor. Keep the back of your head in line with the curve in your back. Your eyes should be looking at the floor. 4. Hold this position for 3???5 seconds. 5. Slowly return to your starting position. Contact a health care provider if: ??? Your back pain or discomfort gets much worse when you do an exercise. ??? Your worsening back pain or discomfort does not lessen within 2 hours after you exercise. If you have any of these problems, stop doing these exercises right away. Do not do them again unless your health care provider says that you can. Get help right away if: ??? You develop sudden, severe back pain. If this happens, stop doing the exercises right away. Do not do them again unless your health care provider says that you can. This information is not intended to replace advice given to you by your health care provider. Make sure you discuss any questions you have with your health care provider. Document Revised: 04/28/2021 Document Reviewed: 04/28/2021 [employer] Patient Education ?? 2021 [employer] Follow Up Care 03/28/2022 10:07:24 With:Dina Diaz Address: [facility] [address] [address]- When:1 month Physician Emergency department Note * Asa Concepcion MD: PERFORM, MODIFY Event Display: ED Note Physician Authored Date: [id number] CODY COBOS :1970 Age:51 years Sex:Female Visit Date:03/28/2022 Primary Care Physician: Dina Diaz Basic Information Time Seen: Asa Concepcion MD / 03/28/2022 10:13 Chief Complaint Pt injured self in January at work picking up pallets. ??Has had PT since. ??Pt in pain today in the left buttock cheek radiating down her left leg. ??Pt also complains of leaking urine which is newto her. History Of Present Illness: 51-year-old female??past medical history of bipolar, borderline,??fibromyalgia, obesity, YAHIR, hyperlipidemia??presents with??urinary incontinence, low back pain. ??This started??a little over a year ago with lumbar back pain radiating into the left lower extremity, however on this got progressively and significantly worse.?? The original injury was from lifting.?? She is also been complaining of urinary incontinence. ??She has dealt with this in the past but recently had her sling adjusted down at [facility] and has not had any incontinence??for the last several weeks but then the symptoms??came about again when her back pain acutely worsened.?? She also complaining of left leg numbness as well. ??No flank pain fevers nausea vomiting chest pain shortness of breath abdominal pain or any other symptoms. ??Denies any other acute injuries recently. Review of Systems: Lumbar back pain Physical Exam Vitals & Measurements T:??37?C ??(Temporal Artery)?? HR:??90??(Peripheral)?? RR:??16?? BP:??109/72?? SpO2:??100%?? HT:??165.000??cm?? WT:??62.00??kg??(Estimated)?? General: Alert and oriented, well nourished,?No??acute distress Eye: PERRL, EOMI,?Normal??conjunctiva HENT: Normocephalic Lungs: Clear to auscultation and percussion,?Non-labored?? respiration Heart:?Normal?? rate,?Regular??rhythm,?No??murmur,?No??gallop,?No??edema Abdomen: Soft, non-tender, non-distended,?Normal?? bowel sounds,?No??masses Slightly reproducible pain to the left SI joint no external signs of trauma or skin abnormalities. ??Straight leg raise is positive on the left. ??There is some subjective numbness to the left lower extremity compared to the right. ??Motor exam bilateral lower extremities appears equal. Medical Decision Makin-year-old female presents with left??sided lower back pain radiating into the left leg.?? 37, 109/72, 90, 16, 100%. ??Patient is having??urinary incontinence with the low back pain. ??She states that she has dealt with incontinence in the past and sees urology down at [facility], however she has been asymptomatic for??many weeks and the incontinence started again with the acute onset worsening of back pain??within the last couple of days. ??She also has some left leg numbness as well??and saddle paresthesias.??Post void residual was normal.??Was given Tylenol, Toradol, Flexeril.?? MRI does not show acute cord compression,??does show a large diffuse osteophyte complex around L4-L5 that causes marked spinal canal stenosis, there is also a component of mass-effect on the L4 root??and a concentric annular tear at L5-S1. ??This is the likely etiology of her pain. ??Given no compression, andlabs are??unremarkable otherwise, patient was given??appropriate doses for ibuprofen, Tylenol, Flexe ril, started on prednisone. ??She is already doing physical therapy at this time. ??Primary care follow-up.?? Discharged in stable condition with strict return precautions regarding worsening symptoms??or any symptoms of cord compression. Procedure No Qualifying Data Assessment/Plan 1.??Central stenosis of spinal canal??M48.00 Ordered: Tylenol Extra Strength 500 mg oral tablet, 500 mg = 1 tab, Oral, every 4 hr, PRN as needed for pain, # 24 tab, 0 Refill(s), Pharmacy: [facility], 165, cm, 03/28/22 10:18:00 EST, Height/Length Dosing, 62, kg, 03/28/22 10:18:00 EST, Weight Dosing cyclobenzaprine 10 mg oral tablet, 10 mg = 1 tab, Oral, TID, PRN as needed for muscle spasm, # 30 tab, 0 Refill(s), Pharmacy: [facility], 165, cm, 03/28/22 10:18:00 EST, Height/Length Dosing, 62, kg, 03/28/22 10:18:00 EST, Weight Dosing ibuprofen 800 mg oral tablet, 800 mg = 1 tab, Oral, every 8 hr, # 30 tab, 0 Refill(s), Pharmacy: [facility], 165, cm, 03/28/22 10:18:00 EST, Height/Length Dosing, 62, kg, 03/28/22 10:18:00EST, Weight Dosing predniSONE 20 mg oral tablet, 40 mg = 2 tab, Oral, Daily, # 10 tab, 0 Refill(s), Pharmacy: [facility], 165, cm, 03/28/22 10:18:00 EST, Height/Length Dosing, 62, kg, 03/28/22 10:18:00 EST, Weight Dosing Discharge Patient, 03/28/22 13:42:00 EST, Home Independently, Constant Indicator ?? 2.??Nerve root compression??G54.9 Ordered: Tylenol Extra Strength 500 mg oral tablet, 500 mg = 1 tab, Oral, every 4 hr, PRN as needed for pain, # 24 tab, 0 Refill(s), Pharmacy: [place] [id number], 165, cm, 03/28/22 10:18:00 EST, Height/Length Dosing, 62, kg, 03/28/22 10:18:00 EST, Weight Dosing cyclobenzaprine 10 mg oral tablet, 10 mg = 1 tab, Oral, TID, PRN as needed for muscle spasm, # 30 tab, 0 Refill(s), Pharmacy: [place] [address], 165, cm, 03/28/22 10:18:00 EST, Height/Length Dosing, 62, kg, 03/28/22 10:18:00 EST, Weight Dosing ibuprofen 800 mg oral tablet, 800 mg = 1 tab, Oral, every 8 hr, # 30 tab, 0 Refill(s), Pharmacy: [place] [address], 165, cm, 03/28/22 10:18:00 EST, Height/Length Dosing, 62, kg, 03/28/22 10:18:00EST, Weight Dosing predniSONE 20 mg oral tablet, 40 mg = 2 tab, Oral, Daily, # 10 tab, 0 Refill(s), Pharmacy: [place] [address], 165, cm, 03/28/22 10:18:00 EST, Height/Length Dosing, 62, kg, 03/28/22 10:18:00 EST, Weight Dosing Discharge Patient, 03/28/22 13:42:00 EST, Home Independently, Constant Indicator ?? 3.??Annular tear of lumbar disc??M51.36 Ordered: Tylenol Extra Strength 500 mg oral tablet, 500 mg = 1 tab, Oral, every 4 hr, PRN as needed for pain, # 24 tab, 0 Refill(s), Pharmacy: [place] [id number], 165, cm, 03/28/22 10:18:00 EST, Height/Length Dosing, 62, kg, 03/28/22 10:18:00 EST, Weight Dosing cyclobenzaprine 10 mg oral tablet, 10 mg = 1 tab, Oral, TID, PRN as needed for muscle spasm, # 30 tab, 0 Refill(s), Pharmacy: [facility], 165, cm, 03/28/22 10:18:00 EST, Height/Length Dosing, 62, kg, 03/28/22 10:18:00 EST, Weight Dosing ibuprofen 800 mg oral tablet, 800 mg = 1 tab, Oral, every 8 hr, # 30 tab, 0 Refill(s), Pharmacy: [facility], 165, cm, 03/28/22 10:18:00 EST, Height/Length Dosing, 62, kg, 03/28/22 10:18:00EST, Weight Dosing predniSONE 20 mg oral tablet, 40 mg = 2 tab, Oral, Daily, # 10 tab, 0 Refill(s), Pharmacy: [facility], 165, cm, 03/28/22 10:18:00 EST, Height/Length Dosing, 62, kg, 03/28/22 10:18:00 EST, Weight Dosing Discharge Patient, 03/28/22 13:42:00 EST, Home Independently, Constant Indicator ?? Orders: Urine Culture, Urine, Stat collect, ST - Stat, 03/28/22 10:39:02 EST, Once, Nurse collect, Collected, 03/28/22 10:39:02 EST, Print Label, [id number] Patient Education Spinal Stenosis Back Exercises Follow Up With When Contact Information Dina Diaz Within 1 month [facility] [place] [id number]- Additional Instructions: Medication Reconciliation Changed acetaminophen (acetaminophen 325 mg oral tablet)2 tab Oral (given by mouth) every 4 hours as neededother (see comment). as needed. ?? acetaminophen (Tylenol Extra Strength 500 mg oral tablet)1 tab Oral (given by mouth) every 4 hours as needed as needed for pain. Refills: 0. ?? cyclobenzaprine (cyclobenzaprine 10 mg oral tablet)1 tab Oral (given by mouth) 3 times a day as needed as needed for muscle spasm. Refills: 0. ?? cyclobenzaprine (cyclobenzaprine 5 mg oral tablet)Take 1-2 tablets every 8 hours as needed for muscle spasm. Refills: 0. ?? ibuprofen (ibuprofen 200 mg oral capsule)3 Capsules Oral (given by mouth) As Directed. every 6 - 8 hours. ?? ibuprofen (ibuprofen 800 mg oral tablet)1 tab Oral (given by mouth) every 8 hours. Refills: 0. ?? predniSONE (predniSONE 20 mg oral tablet)2 tab Oral (given by mouth) every day for 5 Days. Refills:0. ?? predniSONE (predniSONE 20 mg oral tablet)2 tab Oral (given by mouth) every day for 5 Days. Refills:0. ?? Unchanged atorvastatin (atorvastatin 20 mg oral tablet)1 tab Oral (given by mouth) every morning. Refills: 3. ?? buPROPion (buPROPion 300 mg/24 hours (XL) oral tablet, extended release)1 tab Oral (given by mouth)every morning for 30 Days. Refills: 2. ?? EPINEPHrine (EPINEPHrine 0.3 mg injectable kit)1 auto Intramuscular (in a muscle) As Directed as needed other (see comment). as needed. ?? ivabradine (Corlanor 5 mg oral tablet)1 tab Oral (given by mouth) 2 times a day (with meals). Refills: 11. ?? multivitamin (multivitamin adult, oral tablet)Orally Once a day. ?? pregabalin (Lyrica 25 mg oral capsule)1 Capsules Oral (given by mouth) 2 times a day for 28 Days. Refills: 0. ?? prochlorperazine (prochlorperazine 10 mg oral tablet)1 tab Oral (given by mouth) every 8 hours as needed other (see comment). as needed per [facility] headache clinic. ?? traZODone (traZODone 100 mg [...] (02/27/2006)???En dometrial ablation (11/28/1999)???Cholecystectomy (07/28/1997)???Tubal ligation (02/28/1996) Medication Administration Given cyclobenzaprine, 10 mg, Oral Toradol, 30 mg, IM Tylenol, 1000 mg, Oral Allergies SHELLFISH DERIVED??(Anaphylactic reaction) rimegepant??(Eruption) dilTIAZem??(Depression, Chest pain) ARIPiprazole DilTIAZem (Eqv-Cardizem CD)??(Unknown) HYDROcodone??(Unknown) Latex??(no reaction) Peanuts Provigil??(Unknown) Roxicet??(Unknown) SOY TREE AND SHRUB POLLEN Tree Nuts??(Unknown) WHEAT acetaminophen-hydrocodone??(Unknown) acetaminophen-oxycodone??(Unknown) amitriptyline armodafinil??(Other) codeine imipramine??(Unknown) metoprolol??(Depression) modafinil??(runny nose, Difficulty swallowing, Other) morphine oxyCODONE Social History Alcohol Current- Comments: None Rarely Electronic Cigarette/Vaping Electronic Cigarette Use: Never. 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 Home/Environment Lives with Mother. Nutrition/Health Diet: Regular. [...] Mitral valve prolapse: Mother. Rheumatoid arthritis: Sister. Lab Results CBC and Differential?? LATEST RESULTS?? WBC?? 03/28/22 10:50?? 7.1?? RBC?? 03/28/22 10:50?? 4.6?? Hgb?? 03/28/22 10:50?? 14.3?? Hct?? 03/28/22 10:50?? 42.5?? MCV?? 03/28/22 10:50?? 91.8?? MCH?? 03/28/22 10:50?? 30.9?? MCHC?? 03/28/22 10:50?? 33.6?? RDW-CV?? 03/28/22 10:50?? 13.0?? Platelets?? 03/28/22 10:50?? 294?? Neutro Auto?? 03/28/22 10:50?? 59.6?? Lymph Auto?? 03/28/22 10:50?? 28.5?? [place] Auto?? 03/28/22 10:50?? 9.1?? Eos, Auto?? 03/28/22 10:50?? 2.1?? Basophil Auto?? 03/28/22 10:50?? 0.4?? Imm Gran Auto?? 03/28/22 10:50?? 0.3?? Neutro Absolute?? 03/28/22 10:50?? 4.2? Routine Chemistry?? LATEST RESULTS?? Sodium Level?? 03/28/22 10:50?? 138?? Potassium Level?? 03/28/22 10:50?? 3.8?? Chloride Level?? 03/28/22 10:50?? 101?? CO2?? 03/28/22 10:50?? 30?? Alk Phos?? 03/28/22 10:50?? 77?? AST?? 03/28/22 10:50?? 13 ??Low?? ALT?? 03/28/22 10:50?? 23?? BUN?? 03/28/22 10:50?? 19 ??High?? Glucose Level?? 03/28/22 10:50?? 100?? Creatinine Level?? 03/28/22 10:50?? 0.72?? eGFR AA?? 03/28/22 10:50?? 102?? eGFR Non-AA?? 03/28/22 10:50?? 102?? Calcium Level?? 03/28/22 10:50?? 9.1?? Protein Total?? 03/28/22 10:50?? 7.4?? Albumin Level?? 03/28/22 10:50?? 4.0?? Bilirubin Total?? 03/28/22 10:50?? 0.4? Testing?? LATEST RESULTS?? U hCG Ql?? 03/28/22 10:39?? Negative? UA Macroscopic?? LATEST RESULTS?? UA Color?? 03/28/22 10:39?? Yellow?? UA Appear?? 03/28/22 10:39?? Clear?? UA Glucose?? 03/28/22 10:39?? Negative?? UA Bili?? 03/28/22 10:39?? Negative?? UA Ketones?? 03/28/22 10:39?? Negative?? UA Spec Grav?? 03/28/22 10:39?? 1.020?? UA Blood?? 03/28/22 10:39?? Trace Abnormal?? UA pH?? 03/28/22 10:39?? 6.0?? UA Protein?? 03/28/22 10:39?? Negative?? UA Urobilinogen?? 03/28/22 10:39?? Normal?? UA Nitrite?? 03/28/22 10:39?? Negative?? UA Leuk Est?? 03/28/22 10:39?? 1+ Abnormal?? UA Culture Ind?.?? 03/28/22 10:39?? Indicated? UA Microscopic?? LATEST RESULTS?? UA WBC?? 03/28/22 10:39?? 3-5 Abnormal?? UA RBC?? 03/28/22 10:39?? 0-2?? UA Squam Epithelial?? 03/28/22 10:39?? Few Abnormal?? UA Mucous?? 03/28/22 10:39?? Rare Abnormal?? UA Bacteria?? 03/28/22 10:39?? Rare? Electronically Signed on 03/28/22 01:44 PM Asa Concepcion MD Electronically Signed on 03/28/22 01:45 PM sAa Concepcion MD Emergency department Discharge instructions * Asa Concepcion MD: PERFORM Event Display: ED Discharge Information Authored Date: [id number] CHANDRIKADILEEPMarian Gan :1970 Age:51 years Sex:Female Visit Date:03/28/2022 Primary Care Physician: Dina Diaz Discharge Instructions We would like to thank you for allowing us to assist you with your healthcare needs. The following includes patient education materials and information regarding your injury/illness. Diagnosis from Today's Visit Central stenosis of spinal canal Nerve root compression Annular tear of lumbar disc Discharge Vitals Temperature??(Temporal Artery) 98.6 ??F (37 ??C) Heart Rate??(Peripheral) 90 Respiratory Rate?? 16 Blood Pressure?? 109/72?? Height?? 64.96 in (165.000 cm) Weight??(Estimated) 136.71 lb (62.00 kg) Allergies SHELLFISH DERIVED??(Anaphylactic reaction) rimegepant??(Eruption) dilTIAZem??(Depression, Chest pain) ARIPiprazole DilTIAZem (Eqv-Cardizem CD)??(Unknown) HYDROcodone??(Unknown) Latex??(no reaction) Peanuts Provigil??(Unknown) Roxicet??(Unknown) SOY TREE AND SHRUB POLLEN Tree Nuts??(Unknown) WHEAT acetaminophen-hydrocodone??(Unknown) acetaminophen-oxycodone??(Unknown) amitriptyline armodafinil??(Other) codeine imipramine??(Unknown) metoprolol??(Depression) modafinil??(runny nose, Difficulty swallowing, Other) morphine oxyCODONE What to Do Next You Need to Schedule the Following Appointments Follow Up with??Dina Diaz When:??Within 1 month Where: [facility] [address] [address] Upcoming Scheduled Appointments Monday 10:30 AM EST ?? With: Tiff Bustos PT Where: [address] [address] Status: Confirmed 2022 10:20 AM EST ?? Monday 3:45 PM EST ?? 2022 10:40 AM [...] Much When Why Instructions Next Dose Changed acetaminophen (acetaminophen 325 mg oral tablet) 2 tab Oral (given by mouth) Every 4 hours as needed for other (see comment) as needed ?? Changed acetaminophen (Tylenol Extra Strength 500 mg oral tablet) 1 tab Oral (given by mouth) Every 4 hours as needed for as needed for pain Central stenosis of spinal canal Nerve root compression Annular tear of lumbar disc Pickup at [place] [address] Changed cyclobenzaprine (cyclobenzaprine 10 mg oral tablet) 1 tab Oral (given by mouth) 3 times a day as needed for as needed for muscle spasm Central stenosis of spinal canal Nerve root compression Annular tear of lumbar disc Pickup at [place] [address] Changed cyclobenzaprine (cyclobenzaprine 5 mg oral tablet) See instructions Low back pain Take 1-2 tablets every 8 hours as needed for muscle spasm ?? Changed ibuprofen (ibuprofen 200 mg oral capsule) 3 Capsules Oral (given by mouth) As Directed every 6 - 8 hours ?? Changed ibuprofen (ibuprofen 800 mg oral tablet) 1 tab Oral (given by mouth) Every 8 hours Central stenosis of spinal canal Nerve root compression Annular tear of lumbar disc Pickup at [place] [address] Changed predniSONE (predniSONE 20 mg oral tablet) 2 tab Oral (given by mouth) Every day Central stenosis of spinal canal Nerve root compression Annular tear of lumbar disc Duration: 5 Days Pickup at [place] [address] Changed predniSONE (predniSONE 20 mg oral tablet) 2 tab Oral (given by mouth) Every day Low back pain Duration: 5 Days Unchanged atorvastatin (atorvastatin 20 mg oral tablet) [...] other (see comment) as needed ?? Unchanged ivabradine (Corlanor 5 mg oral tablet) 1 tab Oral (given by mouth) 2 times a day (with meals) Unchanged multivitamin (multivitamin adult, oral tablet) Orally Once a day ?? Unchanged pregabalin (Lyrica 25 mg oral capsule) 1 Capsules Oral (given by mouth) 2 times a day Sciatica Low back pain Duration: 28 Days Unchanged prochlorperazine (prochlorperazine 10 mg oral tablet) 1 tab Oral (given by mouth) Every 8 hours as needed for other (see comment) as needed per [facility] headache clinic ?? Unchanged traZODone (traZODone 100 [...] 30 Days Step II ?? Pharmacy Information [facility]: [address], [place] [id number] [phone] Education Materials Spinal Stenosis Spinal stenosis is a condition that happens when the spinal canal narrows. The spinal canal is the space between the bones of your spine (vertebrae). This narrowing puts pressure on the spinal cord or nerves. Spinal stenosis can affect the vertebrae in the neck, upper back, and lower back. This condition can range from mild to severe. In some cases, there are no symptoms. What are the causes? This condition is caused by areas of bone pushing into the spinal canal. This condition may be present at (congenital), or it may be caused by: ? Slow breakdown of your vertebrae (spinal degeneration). This usually starts around 50 years of age. ? Injury (trauma) to your spine. ? Tumors in your spine. ? Calcium deposits in your spine. What increases the risk? The following factors may make you more likely to develop this condition: ? Being older than age 50. ? Having a problem present at with an abnormally shaped spine (congenitalspinal deformity), such as scoliosis. ? Having arthritis. What are the signs or symptoms? Symptoms of this condition include: ? Pain in the neck or back that is generally worse with activities, particularly when you stand or walk. ? Numbness, tingling, hot or cold sensations, weakness, or tiredness (fatigue) in your leg or legs. ? Pain going from the buttock, down the thigh, and to the calf (sciatica). This can happen in one or both legs. ? Frequent episodes of falling. ? A foot-slapping gait that leads to muscle weakness. In more severe cases, you may develop: ? Problems having a bowel movement or urinating. ? Difficulty having sex. ? Loss of feeling in your legs and inability to walk. Symptoms may come on slowly and get worse over time. In some cases, there are no symptoms. How is this diagnosed? This condition is diagnosed based on your medical history and a physical exam. You will also have tests, such as an MRI, a CT scan, or an X-ray. How is this treated? Treatment for this condition often focuses on managing your pain and any other symptoms. Treatment may include: ? Practicing good posture to lessen pressure on your nerves. ? Exercising to strengthen muscles, build endurance, improve balance, and maintain range of motion. This may include physical therapy to restore movement and strength to your back. ? Losing weight, if needed. ? Medicines to reduce inflammation or pain. This may include a medicine that is injected into your spine (steroidinjection). ? Assistive devices, such as a corset or brace. In some cases, surgery may be needed. The most common procedure is decompression laminectomy. This is done to remove excess bone that puts pressure on your nerve roots. Follow these instructions at home: Managing pain, stiffness, and swelling ? Practice good posture. If you were given a brace or a corset, wear it as told by your health care provider. ? Maintain a healthy weight. Talk with your health care provider if you need help losing weight. ? If directed, apply heat to the [...] to feel pain, heat, or cold. You may have a greater risk of getting burned. Activity ? Do all exercises and stretches as told by your health care provider. ? Do not do any activities that cause pain. Ask your health care provider what activities are safe for you. ? Do not lift anything that is heavier than 10 lb (4.5 kg), or the limit that you are told by your health care provider. ? Return to your normal activities as told by your health care provider. Ask your health care provider what activities are safe for you. General instructions ? Take [id number] and prescription medicines only as told by your health care provider. ? Do not use any products that contain nicotine or tobacco, such as cigarettes, e- cigarettes, and chewing tobacco. If you need help quitting, ask your health care provider. ? Eat a healthy diet. This includes plenty of fruits and vegetables, whole grains, and low-fat (lean)protein. ? Keep all follow-up visits as told by your health care provider. This is important. Contact a health care provider if: ? Your symptoms do not get better or they get worse. ? You have a fever. Get help right away if: ? You have new pain or symptoms of severe pain, such as: ? New or worsening pain in your neck or upper back. ? Severe pain that cannot be controlled with medicines. ? A severe headache that gets worse when you stand. ? You are dizzy. ? You have vision problems, such as blurred vision or double vision. ? You have nausea or you vomit. ? You develop new or worsening numbness or tingling in your back or legs. ? You have pain, redness, swelling, or warmth in your arm or leg. Summary ? Spinal stenosis is a condition that happens when the spinal canal narrows. The spinal canal is the space between the bones of your spine (vertebrae). This narrowing puts pressure on the spinal cord or nerves. ? This condition may be caused by a defect, breakdown of your vertebrae, trauma, tumors, or calcium deposits. ? Spinal stenosis can cause numbness, weakness, or pain in the buttocks, neck, back, and legs. ? This condition is usually diagnosed with your medical history, a physical exam, and tests, such as an MRI, a CT scan, or an X-ray. This information is not intended to replace advice given to you by your health care provider. Make sure you discuss any questions you have with your health care provider. Document Revised: 12/12/2019 Document Reviewed: 12/12/2019 [employer] Patient Education ?? 2021 [employer]. Back Exercises The following exercises strengthen the muscles that help to support the trunk (torso) and back. They also help to keep the lower back flexible. Doing these exercises can help to prevent or lessen existing low back pain. ? If you have back pain or discomfort, try doing these exercises 2???3 times each day or as told by your health care provider. ? As your pain improves, do them once each day, but increase the number of times that you repeat the steps for each exercise (do more repetitions). ? To prevent the recurrence of back pain, continue to do these exercises once each day or as told by your health care provider. Do exercises exactly as told by your health care provider and adjust them as directed. It is normalto feel mild stretching, pulling, tightness, or discomfort as you do these exercises, but you should stop right away if you feel sudden pain or your pain gets worse. Exercises Single knee to chest Repeat these steps 3???5 times for each le.?? Lie on your back on a firm bed or the floor with your legs extended. 2.?? Bring one knee to your chest. Your other leg should stay extended and in contact with the floor. 3.?? Hold your knee in place by grabbing your knee or thigh with both hands and hold. 4.?? Pull on your knee until you feel a gentle stretch in your lower back or buttocks. 5.?? Hold the stretch for 10???30 seconds. 6.?? Slowly release and straighten your leg. Pelvic tilt Repeat these steps 5???10 times: 1.?? Lie on your back on a firm bed or the floor with your legs extended. 2.?? Bend your knees so they are pointing toward the ceiling and your feet are flat on the floor. 3.?? Tighten your lower abdominal muscles to press your lower back against the floor. This motion will tilt your pelvis so your tailbone points up toward the ceiling instead of pointing to your feet or the floor. 4.?? With gentle tension and even breathing, hold this position for 5???10 seconds. Cat-cow Repeat these steps until your lower back becomes more flexible: 1.?? Get into a [id number] position on a firm bed or the floor. Keep your hands under your shoulders, and keep your knees under your hips. You may place padding under your knees for comfort. 2.?? Let your head hang down toward your chest. Contract your abdominal muscles and point your tailbone toward the floor so your lower back becomes rounded like the back of a cat. 3.?? Hold this position for 5 seconds. 4.?? Slowly lift your head, let your abdominal muscles relax, and point your tailbone up toward the ceiling so your back forms a sagging arch like the back of a cow. 5.?? Hold this position for 5 seconds. Press-ups Repeat these steps 5???10 times: 1.?? Lie on your abdomen (face-down) on a firm bed or the floor. 2.?? Place your palms near your head, about shoulder-width apart. 3.?? Keeping your back as relaxed as possible and keeping your hips on the floor, slowly straighten yourarms to raise the top half of your body and lift your shoulders. Do not use your back muscles to raise your upper torso. You may adjust the placement of your hands to make yourself more comfortable. 4.?? Hold this position for 5 seconds while you keep your back relaxed. 5.?? Slowly return to lying flat on the floor. Bridges Repeat these steps 10 times: 1.?? Lie on your back on a firm bed or the floor. 2.?? Bend your knees so they are pointing toward the ceiling and your feet are flat on the floor. Your arms should be flat at your sides, next to your body. 3.?? Tighten your buttocks muscles and lift your buttocks off the floor until your waist is at almost the same height as your knees. You should feel the muscles working in your buttocks and the back of your thighs. If you do not feel these muscles, slide your feet 1???2 inches (2.5???5 cm) farther away from your buttocks. 4.?? Hold this position for 3???5 seconds. 5.?? Slowly lower your hips to the starting position, and allow your buttocks muscles to relax completely. If this exercise is too easy, try doing it with your arms crossed over your chest. Abdominal crunches Repeat these steps 5???10 times: 1.?? Lie on your back on a firm bed or the floor with your legs extended. 2.?? Bend your knees so they are pointing toward the ceiling and your feet are flat on the floor. 3.?? Cross your arms over your chest. 4.?? Tip your chin slightly toward your chest without bending your neck. 5.?? Tighten your abdominal muscles and slowly raise your torso high enough to lift your shoulder bladesa tiny bit off the floor. Avoid raising your torso higher than that because it can put too much stress on your lower back and does not help to strengthen your abdominal muscles. 6.?? Slowly return to your starting position. Back lifts Repeat these steps 5???10 times: 1.?? Lie on your abdomen (face-down) with your arms at your sides, and rest your forehead on the floor. 2.?? Tighten the muscles in your legs and your buttocks. 3.?? Slowly lift your chest off the floor while you keep your hips pressed to the floor. Keep the back of your head in line with the curve in your back. Your eyes should be looking at the floor. 4.?? Hold this position for 3???5 seconds. 5.?? Slowly return to your starting position. Contact a health care provider if: ? Your back pain or discomfort gets much worse when you do an exercise. ? Your worsening back pain or discomfort does not lessen within 2 hours after you exercise. If you have any of these problems, stop doing these exercises right away. Do not do them again unless your health care provider says that you can. Get help right away if: ? You develop sudden, severe back pain. If this happens, stop doing the exercises right away. Do not do them again unless your health care provider says that you can. This information is not intended to replace advice given to you by your health care provider. Make sure you discuss any questions you have with your health care provider. Document Revised: 04/28/2021 Document Reviewed: 04/28/2021 [employer] Patient Education ?? 2021 [employer] Tests Performed Medications and Immunizations Administered Given cyclobenzaprine, 10 mg, Oral Toradol, 30 mg, IM Tylenol, 1000 mg, Oral Lab Test Name Test Result Date/Time WBC 7.1 x10^3/mcL 03/28/2022 10:50 EST RBC 4.6 x10^6/mcL 03/28/2022 10:50 EST Hgb 14.3 g/dL 03/28/2022 10:50 EST Hct 42.5 % 03/28/2022 10:50 EST MCV 91.8 03/28/2022 10:50 EST MCH 30.9 pg 03/28/2022 10:50 EST MCHC 33.6 g/dL 03/28/2022 10:50 EST RDW-CV 13.0 % 03/28/2022 10:50 EST Platelets 294 x10^3/mcL 03/28/2022 10:50 EST Neutro Auto 59.6 % 03/28/2022 10:50 EST Lymph Auto 28.5 % 03/28/2022 10:50 EST Fentress Auto 9.1 % 03/28/2022 10:50 EST Eos, Auto 2.1 % 03/28/2022 10:50 EST Basophil Auto 0.4 % 03/28/2022 10:50 EST Imm Gran Auto 0.3 % 03/28/2022 10:50 EST Neutro Absolute 4.2 x10^3/mcL 03/28/2022 10:50 EST Sodium Level 138 mmol/L 03/28/2022 10:50 EST Potassium Level 3.8 mmol/L 03/28/2022 10:50 EST Chloride Level 101 mmol/L 03/28/2022 10:50 EST CO2 30 mmol/L 03/28/2022 10:50 EST Alk Phos 77 unit/L 03/28/2022 10:50 EST AST 13 unit/L 03/28/2022 10:50 EST ALT 23 unit/L 03/28/2022 10:50 EST BUN 19 mg/dL 03/28/2022 10:50 EST Glucose Level 100 mg/dL 03/28/2022 10:50 EST Creatinine Level 0.72 mg/dL 03/28/2022 10:50 EST eGFR AA 102 03/28/2022 10:50 EST eGFR Non-AA 102 03/28/2022 10:50 EST Calcium Level 9.1 mg/dL 03/28/2022 10:50 EST Protein Total 7.4 g/dL 03/28/2022 10:50 EST Albumin Level 4.0 g/dL 03/28/2022 10:50 EST Bilirubin Total 0.4 mg/dL 03/28/2022 10:50 EST U hCG Ql NEGATIVE 03/28/2022 10:39 EST UA Color YELLOW. 03/28/2022 10:39 EST UA Appear CLEAR. 03/28/2022 10:39 EST UA Glucose NEGATIVE 03/28/2022 10:39 EST UA Bili NEGATIVE 03/28/2022 10:39 EST UA Ketones NEGATIVE 03/28/2022 10:39 EST UA Spec Grav 1.020 03/28/2022 10:39 EST UA Blood TRACE. 03/28/2022 10:39 EST UA pH 6.0 03/28/2022 10:39 EST UA Protein NEGATIVE 03/28/2022 10:39 EST UA Urobilinogen 0.2 Uro 03/28/2022 10:39 EST UA Nitrite NEGATIVE 03/28/2022 10:39 EST UA Leuk Est 1+ 03/28/2022 10:39 EST UA Culture Ind?. Indicated 03/28/2022 10:39 EST UA WBC 3-5 03/28/2022 10:39 EST UA RBC 0-2 03/28/2022 10:39 EST UA Squam Epithelial Few 03/28/2022 10:39 EST UA Mucous Rare 03/28/2022 10:39 EST UA Bacteria Rare 03/28/2022 10:39 EST Patient/Electrical Appliance Mechanic Signature Patient Name:CODY COBOS Malik I have received this information and my questions have been answered. Patient/Electrical Appliance Mechanic Name: Patient/Electrical Appliance Mechanic Signature: Relationship to Patient: Witness Name/Signature: Date: Electronically Signed on: 03/28/2022 13:45 ESTSigned by:Asa Mora MD: PERFORM Event Display: ED Discharge Information Authored Date: [id number] CODY COBOS :1970 Age:51 years Sex:Female Visit Date:03/28/2022 Primary Care Physician: Dina Diaz Discharge Instructions We would like to thank you for allowing us to assist you with your healthcare needs. The following includes patient education materials and information regarding your injury/illness. Diagnosis from Today's Visit Central stenosis of spinal canal Nerve root compression Annular tear of lumbar disc Discharge Vitals Temperature??(Temporal Artery) 98.6 ??F (37 ??C) Heart Rate??(Peripheral) 90 Respiratory Rate?? 16 Blood Pressure?? 109/72?? Height?? 64.96 in (165.000 cm) Weight??(Estimated) 136.71 lb (62.00 kg) Allergies SHELLFISH DERIVED??(Anaphylactic reaction) rimegepant??(Eruption) dilTIAZem??(Depression, Chest pain) ARIPiprazole DilTIAZem (Eqv-Cardizem CD)??(Unknown) HYDROcodone??(Unknown) Latex??(no reaction) Peanuts Provigil??(Unknown) Roxicet??(Unknown) SOY TREE AND SHRUB POLLEN Tree Nuts??(Unknown) WHEAT acetaminophen-hydrocodone??(Unknown) acetaminophen-oxycodone??(Unknown) amitriptyline armodafinil??(Other) codeine imipramine??(Unknown) metoprolol??(Depression) modafinil??(runny nose, Difficulty swallowing, Other) morphine oxyCODONE What to Do Next You Need to Schedule the Following Appointments Follow Up with??Dina Diaz When:??Within 1 month Where: [facility] [address] [address] Upcoming Scheduled Appointments Monday 10:30 AM EST ?? With: Tiff Bustos PT Where: [address] [address] Status: Confirmed 2022 10:20 AM EST ?? Monday 3:45 PM EST ?? 2022 10:40 AM [...] Much When Why Instructions Next Dose Changed acetaminophen (acetaminophen 325 mg oral tablet) 2 tab Oral (given by mouth) Every 4 hours as needed for other (see comment) as needed ?? Changed acetaminophen (Tylenol Extra Strength 500 mg oral tablet) 1 tab Oral (given by mouth) Every 4 hours as needed for as needed for pain Central stenosis of spinal canal Nerve root compression Annular tear of lumbar disc Pickup at [facility] Changed cyclobenzaprine (cyclobenzaprine 10 mg oral tablet) 1 tab Oral (given by mouth) 3 times a day as needed for as needed for muscle spasm Central stenosis of spinal canal Nerve root compression Annular tear of lumbar disc Pickup at [facility] [address] Changed cyclobenzaprine (cyclobenzaprine 5 mg oral tablet) See instructions Low back pain Take 1-2 tablets every 8 hours as needed for muscle spasm ?? Changed ibuprofen (ibuprofen 200 mg oral capsule) 3 Capsules Oral (given by mouth) As Directed every 6 - 8 hours ?? Changed ibuprofen (ibuprofen 800 mg oral tablet) 1 tab Oral (given by mouth) Every 8 hours Central stenosis of spinal canal Nerve root compression Annular tear of lumbar disc Pickup at [facility] 415 Changed predniSONE (predniSONE 20 mg oral tablet) 2 tab Oral (given by mouth) Every day Central stenosis of spinal canal Nerve root compression Annular tear of lumbar disc Duration: 5 Days Pickup at [place] [address] Changed predniSONE (predniSONE 20 mg oral tablet) 2 tab Oral (given by mouth) Every day Low back pain Duration: 5 Days Unchanged atorvastatin (atorvastatin 20 mg oral tablet) [...] other (see comment) as needed ?? Unchanged ivabradine (Corlanor 5 mg oral tablet) 1 tab Oral (given by mouth) 2 times a day (with meals) Unchanged multivitamin (multivitamin adult, oral tablet) Orally Once a day ?? Unchanged pregabalin (Lyrica 25 mg oral capsule) 1 Capsules Oral (given by mouth) 2 times a day Sciatica Low back pain Duration: 28 Days Unchanged prochlorperazine (prochlorperazine 10 mg oral tablet) 1 tab Oral (given by mouth) Every 8 hours as needed for other (see comment) as needed per [facility] headache clinic ?? Unchanged traZODone (traZODone 100 [...] 30 Days Step II ?? Pharmacy Information [facility] 4156: [address] [id number] [phone] Education Materials Spinal Stenosis Spinal stenosis is a condition that happens when the spinal canal narrows. The spinal canal is the space between the bones of your spine (vertebrae). This narrowing puts pressure on the spinal cord or nerves. Spinal stenosis can affect the vertebrae in the neck, upper back, and lower back. This condition can range from mild to severe. In some cases, there are no symptoms. What are the causes? This condition is caused by areas of bone pushing into the spinal canal. This condition may be present at (congenital), or it may be caused by: ? Slow breakdown of your vertebrae (spinal degeneration). This usually starts around 50 years of age. ? Injury (trauma) to your spine. ? Tumors in your spine. ? Calcium deposits in your spine. What increases the risk? The following factors may make you more likely to develop this condition: ? Being older than age 50. ? Having a problem present at with an abnormally shaped spine (congenitalspinal deformity), such as scoliosis. ? Having arthritis. What are the signs or symptoms? Symptoms of this condition include: ? Pain in the neck or back that is generally worse with activities, particularly when you stand or walk. ? Numbness, tingling, hot or cold sensations, weakness, or tiredness (fatigue) in your leg or legs. ? Pain going from the buttock, down the thigh, and to the calf (sciatica). This can happen in one or both legs. ? Frequent episodes of falling. ? A foot-slapping gait that leads to muscle weakness. In more severe cases, you may develop: ? Problems having a bowel movement or urinating. ? Difficulty having sex. ? Loss of feeling in your legs and inability to walk. Symptoms may come on slowly and get worse over time. In some cases, there are no symptoms. How is this diagnosed? This condition is diagnosed based on your medical history and a physical exam. You will also have tests, such as an MRI, a CT scan, or an X-ray. How is this treated? Treatment for this condition often focuses on managing your pain and any other symptoms. Treatment may include: ? Practicing good posture to lessen pressure on your nerves. ? Exercising to strengthen muscles, build endurance, improve balance, and maintain range of motion. This may include physical therapy to restore movement and strength to your back. ? Losing weight, if needed. ? Medicines to reduce inflammation or pain. This may include a medicine that is injected into your spine (steroidinjection). ? Assistive devices, such as a corset or brace. In some cases, surgery may be needed. The most common procedure is decompression laminectomy. This is done to remove excess bone that puts pressure on your nerve roots. Follow these instructions at home: Managing pain, stiffness, and swelling ? Practice good posture. If you were given a brace or a corset, wear it as told by your health care provider. ? Maintain a healthy weight. Talk with your health care provider if you need help losing weight. ? If directed, apply heat to the [...] to feel pain, heat, or cold. You may have a greater risk of getting burned. Activity ? Do all exercises and stretches as told by your health care provider. ? Do not do any activities that cause pain. Ask your health care provider what activities are safe for you. ? Do not lift anything that is heavier than 10 lb (4.5 kg), or the limit that you are told by your health care provider. ? Return to your normal activities as told by your health care provider. Ask your health care provider what activities are safe for you. General instructions ? Take zepp-ium-rktqjty and prescription medicines only as told by your health care provider. ? Do not use any products that contain nicotine or tobacco, such as cigarettes, e- cigarettes, and chewing tobacco. If you need help quitting, ask your health care provider. ? Eat a healthy diet. This includes plenty of fruits and vegetables, whole grains, and low-fat (lean)protein. ? Keep all follow-up visits as told by your health care provider. This is important. Contact a health care provider if: ? Your symptoms do not get better or they get worse. ? You have a fever. Get help right away if: ? You have new pain or symptoms of severe pain, such as: ? New or worsening pain in your neck or upper back. ? Severe pain that cannot be controlled with medicines. ? A severe headache that gets worse when you stand. ? You are dizzy. ? You have vision problems, such as blurred vision or double vision. ? You have nausea or you vomit. ? You develop new or worsening numbness or tingling in your back or legs. ? You have pain, redness, swelling, or warmth in your arm or leg. Summary ? Spinal stenosis is a condition that happens when the spinal canal narrows. The spinal canal is the space between the bones of your spine (vertebrae). This narrowing puts pressure on the spinal cord or nerves. ? This condition may be caused by a defect, breakdown of your vertebrae, trauma, tumors, or calcium deposits. ? Spinal stenosis can cause numbness, weakness, or pain in the buttocks, neck, back, and legs. ? This condition is usually diagnosed with your medical history, a physical exam, and tests, such as an MRI, a CT scan, or an X-ray. This information is not intended to replace advice given to you by your health care provider. Make sure you discuss any questions you have with your health care provider. Document Revised: 12/12/2019 Document Reviewed: 12/12/2019 [employer] Patient Education ?? 2021 [employer] Back Exercises The following exercises strengthen the muscles that help to support the trunk (torso) and back. They also help to keep the lower back flexible. Doing these exercises can help to prevent or lessen existing low back pain. ? If you have back pain or discomfort, try doing these exercises 2???3 times each day or as told by your health care provider. ? As your pain improves, do them once each day, but increase the number of times that you repeat the steps for each exercise (do more repetitions). ? To prevent the recurrence of back pain, continue to do these exercises once each day or as told by your health care provider. Do exercises exactly as told by your health care provider and adjust them as directed. It is normalto feel mild stretching, pulling, tightness, or discomfort as you do these exercises, but you should stop right away if you feel sudden pain or your pain gets worse. Exercises Single knee to chest Repeat these steps 3???5 times for each le.?? Lie on your back on a firm bed or the floor with your legs extended. 2.?? Bring one knee to your chest. Your other leg should stay extended and in contact with the floor. 3.?? Hold your knee in place by grabbing your knee or thigh with both hands and hold. 4.?? Pull on your knee until you feel a gentle stretch in your lower back or buttocks. 5.?? Hold the stretch for 10???30 seconds. 6.?? Slowly release and straighten your leg. Pelvic tilt Repeat these steps 5???10 times: 1.?? Lie on your back on a firm bed or the floor with your legs extended. 2.?? Bend your knees so they are pointing toward the ceiling and your feet are flat on the floor. 3.?? Tighten your lower abdominal muscles to press your lower back against the floor. This motion will tilt your pelvis so your tailbone points up toward the ceiling instead of pointing to your feet or the floor. 4.?? With gentle tension and even breathing, hold this position for 5???10 seconds. Cat-cow Repeat these steps until your lower back becomes more flexible: 1.?? Get into a wqjrv-ulu-llkhb position on a firm bed or the floor. Keep your hands under your shoulders, and keep your knees under your hips. You may place padding under your knees for comfort. 2.?? Let your head hang down toward your chest. Contract your abdominal muscles and point your tailbone toward the floor so your lower back becomes rounded like the back of a cat. 3.?? Hold this position for 5 seconds. 4.?? Slowly lift your head, let your abdominal muscles relax, and point your tailbone up toward the ceiling so your back forms a sagging arch like the back of a cow. 5.?? Hold this position for 5 seconds. Press-ups Repeat these steps 5???10 times: 1.?? Lie on your abdomen (face-down) on a firm bed or the floor. 2.?? Place your palms near your head, about shoulder-width apart. 3.?? Keeping your back as relaxed as possible and keeping your hips on the floor, slowly straighten yourarms to raise the top half of your body and lift your shoulders. Do not use your back muscles to raise your upper torso. You may adjust the placement of your hands to make yourself more comfortable. 4.?? Hold this position for 5 seconds while you keep your back relaxed. 5.?? Slowly return to lying flat on the floor. Bridges Repeat these steps 10 times: 1.?? Lie on your back on a firm bed or the floor. 2.?? Bend your knees so they are pointing toward the ceiling and your feet are flat on the floor. Your arms should be flat at your sides, next to your body. 3.?? Tighten your buttocks muscles and lift your buttocks off the floor until your waist is at almost the same height as your knees. You should feel the muscles working in your buttocks and the back of your thighs. If you do not feel these muscles, slide your feet 1???2 inches (2.5???5 cm) farther away from your buttocks. 4.?? Hold this position for 3???5 seconds. 5.?? Slowly lower your hips to the starting position, and allow your buttocks muscles to relax completely. If this exercise is too easy, try doing it with your arms crossed over your chest. Abdominal crunches Repeat these steps 5???10 times: 1.?? Lie on your back on a firm bed or the floor with your legs extended. 2.?? Bend your knees so they are pointing toward the ceiling and your feet are flat on the floor. 3.?? Cross your arms over your chest. 4.?? Tip your chin slightly toward your chest without bending your neck. 5.?? Tighten your abdominal muscles and slowly raise your torso high enough to lift your shoulder bladesa tiny bit off the floor. Avoid raising your torso higher than that because it can put too much stress on your lower back and does not help to strengthen your abdominal muscles. 6.?? Slowly return to your starting position. Back lifts Repeat these steps 5???10 times: 1.?? Lie on your abdomen (face-down) with your arms at your sides, and rest your forehead on the floor. 2.?? Tighten the muscles in your legs and your buttocks. 3.?? Slowly lift your chest off the floor while you keep your hips pressed to the floor. Keep the back of your head in line with the curve in your back. Your eyes should be looking at the floor. 4.?? Hold this position for 3???5 seconds. 5.?? Slowly return to your starting position. Contact a health care provider if: ? Your back pain or discomfort gets much worse when you do an exercise. ? Your worsening back pain or discomfort does not lessen within 2 hours after you exercise. If you have any of these problems, stop doing these exercises right away. Do not do them again unless your health care provider says that you can. Get help right away if: ? You develop sudden, severe back pain. If this happens, stop doing the exercises right away. Do not do them again unless your health care provider says that you can. This information is not intended to replace advice given to you by your health care provider. Make sure you discuss any questions you have with your health care provider. Document Revised: 04/28/2021 Document Reviewed: 04/28/2021 [employer] Patient Education ?? 2021 [employer] Tests Performed Medications and Immunizations Administered Given cyclobenzaprine, 10 mg, Oral Toradol, 30 mg, IM Tylenol, 1000 mg, Oral Lab Test Name Test Result Date/Time WBC 7.1 x10^3/mcL 03/28/2022 10:50 EST RBC 4.6 x10^6/mcL 03/28/2022 10:50 EST Hgb 14.3 g/dL 03/28/2022 10:50 EST Hct 42.5 % 03/28/2022 10:50 EST MCV 91.8 03/28/2022 10:50 EST MCH 30.9 pg 03/28/2022 10:50 EST MCHC 33.6 g/dL 03/28/2022 10:50 EST RDW-CV 13.0 % 03/28/2022 10:50 EST Platelets 294 x10^3/mcL 03/28/2022 10:50 EST Neutro Auto 59.6 % 03/28/2022 10:50 EST Lymph Auto 28.5 % 03/28/2022 10:50 EST Fentress Auto 9.1 % 03/28/2022 10:50 EST Eos, Auto 2.1 % 03/28/2022 10:50 EST Basophil Auto 0.4 % 03/28/2022 10:50 EST Imm Gran Auto 0.3 % 03/28/2022 10:50 EST Neutro Absolute 4.2 x10^3/mcL 03/28/2022 10:50 EST Sodium Level 138 mmol/L 03/28/2022 10:50 EST Potassium Level 3.8 mmol/L 03/28/2022 10:50 EST Chloride Level 101 mmol/L 03/28/2022 10:50 EST CO2 30 mmol/L 03/28/2022 10:50 EST Alk Phos 77 unit/L 03/28/2022 10:50 EST AST 13 unit/L 03/28/2022 10:50 EST ALT 23 unit/L 03/28/2022 10:50 EST BUN 19 mg/dL 03/28/2022 10:50 EST Glucose Level 100 mg/dL 03/28/2022 10:50 EST Creatinine Level 0.72 mg/dL 03/28/2022 10:50 EST eGFR AA 102 03/28/2022 10:50 EST eGFR Non-AA 102 03/28/2022 10:50 EST Calcium Level 9.1 mg/dL 03/28/2022 10:50 EST Protein Total 7.4 g/dL 03/28/2022 10:50 EST Albumin Level 4.0 g/dL 03/28/2022 10:50 EST Bilirubin Total 0.4 mg/dL 03/28/2022 10:50 EST U hCG Ql NEGATIVE 03/28/2022 10:39 EST UA Color YELLOW. 03/28/2022 10:39 EST UA Appear CLEAR. 03/28/2022 10:39 EST UA Glucose NEGATIVE 03/28/2022 10:39 EST UA Bili NEGATIVE 03/28/2022 10:39 EST UA Ketones NEGATIVE 03/28/2022 10:39 EST UA Spec Grav 1.020 03/28/2022 10:39 EST UA Blood TRACE. 03/28/2022 10:39 EST UA pH 6.0 03/28/2022 10:39 EST UA Protein NEGATIVE 03/28/2022 10:39 EST UA Urobilinogen 0.2 Uro 03/28/2022 10:39 EST UA Nitrite NEGATIVE 03/28/2022 10:39 EST UA Leuk Est 1+ 03/28/2022 10:39 EST UA Culture Ind?. Indicated 03/28/2022 10:39 EST UA WBC 3-5 03/28/2022 10:39 EST UA RBC 0-2 03/28/2022 10:39 EST UA Squam Epithelial Few 03/28/2022 10:39 EST UA Mucous Rare 03/28/2022 10:39 EST UA Bacteria Rare 03/28/2022 10:39 EST Patient/Electrical Appliance Mechanic Signature Patient Name:CODY COBOS Malik I have received this information and my questions have been answered. Patient/Electrical Appliance Mechanic Name: Patient/Electrical Appliance Mechanic Signature: Relationship to Patient: Witness Name/Signature: Date: Electronically Signed on: 03/28/2022 13:44 ESTSigned by:[facility] Emergency department Note * Rahel Diaz M: PERFORM Event Display: ED Notes Authored Date: [id number] Patient Care team information Personnel Name: Dina Diaz Address: Address: [facility] [address] [address] [place]
--- OUTSIDE RECORDS SUMMARY | 2023-10-04 01:02 | XMS_ITS | Continuity of Care Document ---
Author Organization [facility] Address [address] [place] [address] Care Team Providers Care Engineering Specialist Name Role Phone Emily Dina C Primary Care Physician [phone] Encounter [facility] [id number] Date(s): 12/27/22 - 12/27/22 [facility] [address] [place] [address] Discharge Disposition: Home or Self Care Attending Physician: Unavailable, Physician Admitting Physician: Unavailable, Physician Referring Physician: Unavailable, Physician Allergies, Adverse Reactions, Alerts Substance Reaction Severity [...] immune globulin 06/05/07 Recorded 1Result Comment: betzaida [facility] club 2Result Comment: Glassware Maker: GlaxoSmithKline 3Result Comment: Glassware Maker: Sanofi Pasteur Medications acetaminophen 325 mg oral tablet 650 mg = 2 tab, Oral, every 4 hr, PRN other (see comment), as needed, 0 Refill(s) Start Date: 07/08/21 Status: Ordered atorvastatin 20 mg oral tablet 1 tab, Oral, every morning, # 90 tab, 0 Refill(s), Pharmacy: [id number], 165, cm, 04/12/22 13:34:00 [...] labeling, # 21 tab, 0 Refill(s), Pharmacy: [id number], 165, cm, 04/12/22 13:34:00 [...] PRN other (see comment), as needed per [facility] headache clinic Start Date: 07/08/21 Status: Ordered traZODone 100 mg oral tablet See Instructions, TAKE 1 TABLET BY MOUTH ONCE DAILY AT BEDTIME, # 90 tab, 3 Refill(s), Pharmacy: [id number], 165, cm, 04/12/22 13:34:00 [...] meds as of . Lamictal 100mg BID. [place] ER 450mg 1 1/2 tabs qhs. cymbalta 60mg. Zalephon for sleep. Has seen Dr. Singer at [facility]. 3From 06-12-2020 visit: 12/03/19: New [...] prior to sleep studies. see narcolepsy section [facility] 12-14-2020 visit: Medications trialed and unable to tolerate TCAs, duloxetine, gabapentin, lyrica, cyclobenzaprine. She has seen rheumatology . 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 We discussed trial of naltrexone for her chronic pain. Naltrexone 1-4.5 mg qd. Would need to send rx to compounding pharmacy in [place]. Reviewed MOA, side effects. She would also like to get involved in resistance band training. >50% of this 40 minute appointment was spent in face to face counseling. [facility]: S/P LT partial thyroidectomy. TSH annually. She is not on thyroid replacement. [facility] visit: Has been on atorvastatin 20 mg qd since 10/2019. She is tolerating well. Repeat FLP and CMP. 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 Requested [facility] records to review. Order Home Sleep Study, [...] repair 09/2009 Results Laboratory List Name Date Hemoglobin A1c 12/27/22 Most recent to oldest [Reference Range]: 1 Hemoglobin A1c [4.0-6.0 %] 5.4 % (12/27/22 2:21 PM) Social History Social History Type Response Smoking Status Smoking tobacco use: Never tobacco user;Never 1 entered on: 08/16/22 Sex Female 1How much tobacco do you chew: none What was the date of your most recent tobacco screenin05-25-2021 Patient Care team information Care Team Personnel Name: Dina Diaz Position: Physician Member Role: Informed Provider Address: Address: [facility] [address] [address]- Care Team Related Persons Name: EMY COBOS Address: Home [address] [place] [address] [phone]
--- OUTSIDE RECORDS SUMMARY | 2023-10-04 01:02 | XMS_ITS | Continuity of Care Document ---
Author Organization [facility] Address [address] [place] [address] Care Team Providers Care Goal Umpire Name Role Phone KarissaMohsen waddellth Kinza Primary Care Physician Encounter [facility] Date(s): 02/03/22 - 02/03/22 [facility] [address] [place] [address] Discharge Disposition: Home or Self Care Attending [...] morning, # 90 EA, 3 Refill(s), Pharmacy: [id number], 165, cm,08/14/21 10:33:00 EDT, Height/Length Dosing, 56, kg, 08/14/21 10:33:00 EDT, Weight Dosing Start Date: 11/25/21 Status: Ordered buPROPion 300 mg/24 hours (XL) oral tablet, extended release 300 mg = 1 tab, Oral, every morning, # 30 tab, 3 Refill(s), Pharmacy: [id number], 165, cm, 08/14/21 10:33:00 EDT, Height/Length Dosing, 56, kg, 08/14/21 10:33:00 EDT, Weight Dosing Start Date: 10/13/21 Stop Date: 02/10/22 Status: Ordered Corlanor 5 mg oral tablet See Instructions, TAKE 1/2 (ONE-HALF) TABLET BY MOUTH TWICE DAILY WITH MEALS, # 30 EA, 3 Refill(s),Pharmacy: [id number], 165, cm, 08/14/21 10:33:00 EDT, Height/Length Dosing, 56, kg, 08/14/21 10:33:00 EDT, Weight Dosing Start Date: 02/01/22 Status: Ordered cyclobenzaprine 5 mg oral tablet See Instructions, Take 1-2 tablets every 8 hours as needed for muscle spasm, # 30 tab, 0 Refill(s),Pharmacy: [id number], 165, cm, 08/14/21 [...] PRN other (see comment), as needed per [facility] headache clinic Start Date: 07/08/21 Status: Ordered [...] I, # 7 tab, 0 Refill(s), Pharmacy: [id number], 165, cm,08/14/21 10:33:00 EDT, Height/Length Dosing, 56, kg, 08/14/21 10:33:00 EDT, Weight Dosing Start Date: 01/17/22 Stop Date: 01/24/22 Status: Ordered vilazodone 20 mg oral tablet 20 mg = 1 tab, Oral, Daily, Step II, # 30 tab, 2 Refill(s), Pharmacy: [id number], 165, cm, 08/14/21 [...] not like how she felt on it 3From 05-19-2020 visit: timeline: ESS always very high [...] prior to sleep studies. see narcolepsy section [facility] visit: Medications trialed and unable to tolerate TCAs, duloxetine, gabapentin, lyrica, cyclobenzaprine. She has seen rheumatology . 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 We discussed trial of naltrexone for her chronic pain. Naltrexone 1-4.5 mg qd. Would need to send rx to compounding pharmacy in [place]. Reviewed MOA, side effects. She would also like to get involved in resistance band training. >50% of this 40 minute appointment was spent in face to face counseling. [facility] 12-14-2020 visit: S/P LT partial thyroidectomy. TSH annually. She is not on thyroid replacement. [facility] 11-03-2020 visit: Has been on atorvastatin 20 mg qd since 10/2019. She is tolerating well. Repeat FLP and CMP. 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 Requested [facility] records to review. Order Home Sleep Study, [...] AHI 2.4/hr. 06/18/19: I do not think YAIHR is contributing significantly as her symptoms really [...] recent tobacco screenin05-25-2021 Patient Care team information Personnel Name: Dina Diaz Address: Address: [facility] [address] [address]- [place]
--- OUTSIDE RECORDS SUMMARY | 2023-10-04 01:02 | XMS_ITS | Continuity of Care Document ---
Author Organization [facility] Address [address] [place] [address] Care Team Providers Care A And P Technician Name Role Phone Dina Diaz Primary Care Physician [facility] - 03/02/22 [facility] [address] [place] [address] Encounter Diagnosis Low back pain(Discharge Diagnosis) - 03/02/22 Discharge Disposition: Home or Self Care Attending [...] morning, # 90 EA, 3 Refill(s), Pharmacy: [id number], 165, cm,08/14/21 10:33:00 EDT, Height/Length Dosing, 56, kg, 08/14/21 10:33:00 EDT, Weight Dosing Start Date: 11/25/21 Status: Ordered buPROPion 300 mg/24 hours (XL) oral tablet, extended release 300 mg = 1 tab, Oral, every morning, # 30 tab, 2 Refill(s), Pharmacy: [facility], 165, cm, 08/14/21 10:33:00 EDT, Height/Length Dosing, 56, kg, 08/14/21 10:33:00 EDT, Weight Dosing Start Date: 02/11/22 Stop Date: 05/12/22 Status: Ordered Corlanor 5 mg oral tablet See Instructions, TAKE 1/2 (ONE-HALF) TABLET BY MOUTH TWICE DAILY WITH MEALS, # 30 EA, 3 Refill(s),Pharmacy: [facility], 165, cm, 08/14/21 10:33:00 EDT, Height/Length Dosing, 56, kg, 08/14/21 10:33:00 EDT, Weight Dosing Start Date: 02/01/22 Status: Ordered Corlanor 5 mg oral tablet See Instructions, TAKE 1/2 (ONE-HALF) TABLET BY MOUTH TWICE DAILY WITH MEALS, # 30 EA, 3 Refill(s),Pharmacy: [id number], 165, cm, 02/19/22 9:21:00 EST, Height/Length Dosing, 58, kg, 02/19/22 9:21:00 EST, Weight Dosing Start Date: 03/02/22 Status: Ordered cyclobenzaprine 5 mg oral tablet See Instructions, Take 1-2 tablets every 8 hours as needed for muscle spasm, # 30 tab, 0 Refill(s),Pharmacy: [id number], 165, cm, 08/14/21 10:33:00 EDT, [...] PRN other (see comment), as needed per [facility] headache clinic Start Date: 07/08/21 Status: Ordered [...] I, # 7 tab, 0 Refill(s), Pharmacy: [id number], 165, cm,08/14/21 10:33:00 EDT, Height/Length Dosing, 56, kg, 08/14/21 10:33:00 EDT, Weight Dosing Start Date: 01/17/22 Stop Date: 01/24/22 Status: Ordered vilazodone 20 mg oral tablet 20 mg = 1 tab, Oral, Daily, Step II, # 30 tab, 2 Refill(s), Pharmacy: [facility], 165, cm, 08/14/21 10:33:00 EDT, [...] to trees, weeds, grasses, dust mite, dogs/cats [facility] visit: 12/03/19: New diagnosis [...] prior to sleep studies. see narcolepsy section [facility] 12-14-2020 visit: Medications trialed and unable to tolerate TCAs, duloxetine, gabapentin, lyrica, cyclobenzaprine. She has seen rheumatology . 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 We discussed trial of naltrexone for her chronic pain. Naltrexone 1-4.5 mg qd. Would need to send rx to compounding pharmacy in [place]. Reviewed MOA, side effects. She would also like to get involved in resistance band training. >50% of this 40 minute appointment was spent in face to face counseling. [facility] 12-14-2020 visit: S/P LT partial thyroidectomy. TSH annually. She is not on thyroid replacement. [facility] 11-03-2020 visit: Has been on atorvastatin 20 mg qd since 10/2019. She is tolerating well. Repeat FLP and CMP. 7suspect to be due to narcolepsy with [facility]aplexy [facility] with additional imaging, BI-RADS: 3, [...] back position sleep From 05-19-2020 visit: 07/31/18: [facility] records not available at time of consult, [...] she will qualify for fin assistance at [facility] due to just being . Requested [facility] records to review. Order Home Sleep Study, [...] information Personnel Name: Dina Diaz Address: Address: [facility] [address] [address]- [place]
--- OUTSIDE RECORDS SUMMARY | 2023-10-04 01:02 | XMS_ITS | Continuity of Care Document ---
Author Organization [facility] Address [address] [place] [address] Care Team Providers Care Nuclear Control Operator Name Role Phone Dina Diaz Primary Care Physician [phone] Encounter [facility] [id number] Date(s): 09/16/22 - 09/16/22 [facility] [address] [place] [address] Encounter Diagnosis HLD (hyperlipidemia)(Discharge Diagnosis) - 09/16/22 Chest pain(Discharge Diagnosis) - 09/16/22 Discharge Disposition: Home or Self Care Attending [...] Diagnostic Bilateral w/ Gil 05/26/22 Functional Status 09/16/22 Other exposure to Infectious Disease Non e [...] tetanus immune globulin 06/05/07 Recorded 1Result Comment: [facility] 2Result Comment: [employer] Solution Architect: GlaxoSmithKline 3Result Comment: [employer] Solution Architect: Sanofi Pasteur Medications acetaminophen 325 mg oral tablet 650 mg = 2 tab, Oral, every 4 hr, PRN other (see comment), as needed, 0 Refill(s) Start Date: 07/08/21 Status: Ordered atorvastatin 20 mg oral tablet 20 mg = 1 tab, Oral, every morning, # 90 EA, 3 Refill(s), Pharmacy: [facility], 165, cm,08/14/21 10:33:00 EDT, [...] spasm, # 30 tab, 0 Refill(s), Pharmacy: [facility], 165, cm, 03/28/22 10:18:00 [...] hr, # 30 tab, 0 Refill(s), Pharmacy: [facility], 165, cm, 03/28/22 10:18:00 [...] PRN other (see comment), as needed per [facility] headache clinic Start Date: 07/08/21 Status: Ordered Qulipta 60 mg oral tablet 30 EA, TAKE 1 TABLET BY MOUTH ONCE DAILY, 0 Refill(s) Start Date: 09/15/22 Status: Ordered traZODone 100 mg oral tablet See Instructions, TAKE 1 TABLET BY MOUTH ONCE DAILY AT BEDTIME, # 90 tab, 0 Refill(s), Pharmacy: [facility], 165, cm, 04/12/22 13:34:00 [...] meds as of . Lamictal 100mg BID. [place] ER 450mg 1 1/2 tabs qhs. cymbalta 60mg. Zalephon for sleep. Has seen Dr. Singer at [facility]. 3From 06-12-2020 visit: 12/03/19: New diagnosis of [...] but had rhinorrhea wakix - 17.8mg or / 17.8mg kept her wake all night, heart [...] Modafinil tried in past effective but d/c'ed / questionable allergicrxn. on vit D. ? 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 We discussed trial of naltrexone for her [...] to be due to narcolepsy with cataplexy 9[facility] consultation 01/07/21 with additional imaging, BI-RADS: 3, [...] back position sleep From 05-19-2020 visit: 07/31/18: [facility] records not available at time of consult, [...] she will qualify for fin assistance at [facility] due to just being . Requested [facility] records to review. Order Home Sleep Study, [...] Orthopedic surgery 5 09/2009 Comp leted Rhinoseptoplasty 12/31/06 Complete d Endometrial ablation 11/27/99 Comp leted Cholecystectomy 07/27/97 Completed Tubal ligation 02/27/96 Completed 1LT L4-5 hemilaminectomy, medial facetectomy and microsurgical discectomy 2repeat in 5 yrs due to h/o of colon polyps 3gastritis, esophagitis. 4TLH, BS, USVVS, TVT, cystocele repair 5shoulder/labrum repair 09/2009 Vital Signs Most recent to oldest [Reference Range]: 1 Peripheral Pulse Rate [60-100 bpm] 104 b pm *HI* (09/16/22 1:40 PM) Blood Pressure [90-140/60-90 mmHg] 101/6 3mmHg (09/16/22 1:40 PM) Weight 65.30 kg (09/16/22 1:40 PM) Weight Measured (lbs) 143.962 lb (09/16/22 1:40 PM) Social History Social History Type Response Smoking Status Smoking tobacco use: Never tobacco user;Never 1 entered on: 08/16/22 Sex Female 1How much tobacco do you chew: none What was the date of your most recent tobacco screenin05-25-2021 Physician Outpatient Note * Larry Feldman MD: PERFORM Event Display: Office Clinic Note Physician Authored Date: [id number] CODY COBOS :1970 Age:52 years Sex:Female Visit Date:09/16/2022 Primary Care Physician: Dina Diaz History of Present Illness Cardiac problems: 1. ??Anxiety 2. ??Bipolar disorder 3. ??Borderline personality disorder 4.?? Fibromyalgia 5.?? Hyperlipidemia 6. ??Hypothyroidism 7. ??Depression 8. ??Obstructive sleep apnea 9.?? Morbid obesity 10. ??Tachycardia, possible SVT ?? This is a 52 year old female who I saw in clinic earlier this month to review Lexiscan findings,which did show possible anterior ischemia. She did report that she was still having chest discomfort. I discussed with her that given her chest discomfort and the abnormal Lexiscan, I recommended a catheterization. She had Cardiac Cath??done on??09/12/22, which showed: Right dominant system. No CAD in the left or right coronary arteries.??She is here today for follow up. ?? We are reassured by the catheterization. ??She continues to have atypical chest pain, which is unchanged, but she remains quite active. ??She walks??5-1/2 miles, as recently as yesterday, and is already gotten another 5-1/2 today, and she is without any exertional discomfort. ?? I am thrilled that were not needing to start a cardioprotective regimen for disease that is actually not there.?? She understands and seemed happy with that as well. ?? The right wrist is healing nicely. ??There is significant ecchymosis, but no hematoma.?? She had some??pain in the wrist for a couple of days and that has mostly resolved at this point. ?? She has gone back to work. Review of Systems A complete review of systems is negative other than as noted in the history of present illness. Physical Exam Vitals & Measurements HR:??104??(Peripheral)?? BP:??101/63?? SpO2:??98%?? WT:??65.30??kg?? HEENT: Normocephalic, atraumatic Respirations: Clear to auscultation bilaterally with no wheezes rubs or rhonchi Cardiac: Regular, normal S1, S2, no murmurs gallops or [...] ??No evidence of ischemia or prior infarct. Cardiac Cath: 09/12/22. Right dominant system. No CAD in the left or right coronary arteries. EKG:??09/16/2022: Sinus rhythm at 96 bpm. ??Axes and intervals within normal limits. ??No evidence of ischemia or prior infarct. ?? 52-year-old woman who is doing quite well. ?? Chest discomfort:??She had a borderline abnormal stress test, we arranged for cardiac catheterization; I am thrilled to see that that is normal.?? We were considering starting a cardioprotective regimen for what we suspected was active coronary disease,??but I am happy that we do not need to move in that direction. ??I was able to reassure her that her chest pain??very much appears to be noncardiac at this point and should be less of a cause for concern. ?? I am trilled that she continues to exercise, particularly??that she is not having exertional chest pain. ?? The wrist is healing nicely. ??No other changes to recommend at this point.?? It was a genuine pleasure to see Cody.?? Given that there are no active cardiac issues at this point, she will be discharged back to primary care, but I have asked her to call us??if there are any concerns??going forward. ??Thank you for allowing us to participate in??her care. Clinic Assessment/Plan Chest pain??R07.9 Actions: COMPLETED - 75632 Office/Outpatient Visit - Established Patient, Level 3 (20-29 min)., 09/16/22 13:20:00 EDT, HLD (hyperlipidemia) Chest pain COMPLETED - Follow-Up Appointment Request [facility], 09/16/22 13:20:00 EDT, 40-min - to follow-up cath, In Approximately, [facility], 09/16/22 13:20:00 EDT ?? HLD (hyperlipidemia)??E78.5 Actions: COMPLETED - 37227 Office/Outpatient Visit - Established Patient, Level 3 (20-29 min)., 09/16/22 13:20:00 EDT, HLD (hyperlipidemia) Chest pain COMPLETED - CV ECG Clinic, 09/16/22 13:39:00 EDT, Routine, Reason: Other (please specify), Stop date and time 09/16/22 13:39:00 EDT, HLD (hyperlipidemia), ORD_SET_REQ_DT_RANGE, [facility] Internal Person Id COMPLETED - Follow-Up Appointment Request LAINA, 09/16/22 13:20:00 EDT, 40-min - to follow-up cath, In Approximately, [facility], 09/16/22 13:20:00 EDT ?? Problem List/Past Medical History Ongoing Abnormal [...] other (see comment) as needed ?? Unchanged atogepant (Qulipta 60 mg oral tablet) 30 EA, TAKE 1 TABLET BY MOUTH ONCE DAILY ?? Unchanged atorvastatin (atorvastatin 20 mg oral [...] other (see comment) as needed ?? Unchanged gabapentin (gabapentin 100 mg oral capsule) Oral (given by mouth) 3 times a day 100 Unknown, 1 Refill(s), Take 100 mg by mouth 3 times daily. ?? Unchanged hydrOXYzine (hydrOXYzine hydrochloride 25 mg oral tablet) Oral (given by mouth) 1 Unknown, 1 Refill(s), Take 1 tablet by mouth as needed. ?? Unchanged ibuprofen (ibuprofen 800 mg oral tablet) 1 tab Oral (given by mouth) Every 8 hours Central stenosis of spinal canal Nerve root compression Annular tear of lumbar disc Unchanged pregabalin (Lyrica 25 mg oral capsule) Oral (given by mouth) 25 Unknown, 1 Refill(s), Take 25 mg by mouth. ?? Unchanged prochlorperazine (prochlorperazine 10 mg oral tablet) 1 tab Oral (given by mouth) Every 8 hours as needed for other (see comment) as needed per [facility] headache clinic ?? Unchanged rimegepant (Nurtec ODT [...] DOSE OF200 MG) ?? Unchanged vilazodone (vilazodone 20 mg oral tablet) 30 EA, TAKE 1 TABLET BY MOUTH ONCE DAILY FOR 30 DAYS ?? Allergies SHELLFISH DERIVED??(Anaphylactic reaction) rimegepant??(Eruption) dilTIAZem??(Depression, Chest pain) ARIPiprazole DilTIAZem (Eqv-Cardizem CD)??(Unknown) HYDROcodone??(Unknown) Latex??(no reaction) Peanuts Provigil??(Unknown) Roxicet??(Unknown) SOY TREE AND SHRUB POLLEN Tree Nuts??(Unknown) WHEAT acetaminophen-hydrocodone??(Unknown) acetaminophen-oxycodone??(Unknown) amitriptyline armodafinil??(Other) codeine imipramine??(Unknown) metoprolol??(Depression) modafinil??(runny nose, Difficulty swallowing, Other) morphine oxyCODONE Social History Alcohol Current- Comments: None Rarely Electronic Cigarette/Vaping Electronic Cigarette Use: Never. 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 Home/Environment Lives with Mother. Nutrition/Health Diet: Regular. [...] vaccine, inactivated 06/12/2022 Recorded Comments : betzaida [facility] influenza virus vaccine, inactivated 12/22/2021 Given influenza virus vaccine, live 11/10/2020 Recorded SARS-CoV-2 (COVID-19) mRNA-1273 vaccine 07/21/2020 Recorded SARS-CoV-2 (COVID-19) mRNA-1273 vaccine 06/21/2020 Recorded influenza virus vaccine, live 05/01/2018 Recorded measles/mumps/rubella virus vaccine 04/01/2014 Recorded influenza, unspecified formulation 04/01/2014 Recorded tetanus/diphth/pertuss (Tdap) adult/adol 05/24/2013 Recorded influenza, unspecified formulation 12/31/2010 Recorded Comments : [employer] Solution Architect: GlaxoSmithKline Td(adult) unspecified formulation 04/27/2010 Recorded Td(adult) unspecified formulation 04/27/2010 Recorded influenza, unspecified formulation 01/18/2010 Recorded Comments : [employer] Solution Architect: Sanofi Pasteur tetanus immune globulin 06/05/2007 Recorded Electronically Signed on 09/16/22 02:04 PM Larry Feldman MD Patient Care team information Care Team Personnel Name: Dina Diaz Position: Physician Member Role: Informed Provider Address: Address: [facility] [address] [address]- Care Team Related Persons Name: EMY COBOS Address: Home Name: EMY COBOS Address: [address] [id number] Name: AMARIS DE LA FUENTE Address: Home
--- OUTSIDE RECORDS SUMMARY | 2023-10-04 01:02 | XMS_ITS | Continuity of Care Document ---
Author Organization [facility] Address [address] [place] [address] Care Team Providers Care Tie Fastener Name Role Phone KarissaDina waddell Primary Care Physician [phone] Encounter [facility] Date(s): 04/08/22 - 04/08/22 [facility] [address] [place] [address] Discharge Disposition: Home or Self Care Attending Physician: Tram Rdz PA-C Admitting Physician: Tram Rdz PA-C Referring Physician: Tram Rdz PA-C Allergies, Adverse Reactions, Alerts Substance Reaction Severity [...] 09/01/21 * MG Mammo Diagnostic Left 07/28/22 Immunizations Given and Recorded Vaccine Date Status [...] tetanus immune globulin 06/05/07 Recorded 1Result Comment: Adzing And Boring Machine Helper: Vivint 2Result Comment: Adzing And Boring Machine Helper: SanYPlan Pasteur Medications !-Compazine 0 Refill(s) Start Date: [...] morning, # 90 EA, 3 Refill(s), Pharmacy: [id number], 165, cm,08/14/21 10:33:00 EDT, [...] w/Meals, # 60 tab, 11 Refill(s), Pharmacy: [id number], 165, cm, 02/19/22 9:21:00 EST, Height/Length Dosing, 58, kg, 02/19/22 9:21:00 EST, Weight Dosing Start Date: 03/12/22 Status: Ordered cyclobenzaprine 10 mg oral tablet 10 mg = 1 tab, Oral, TID, PRN as needed for muscle spasm, # 30 tab, 0 Refill(s), Pharmacy: [id number], 165, cm, 03/28/22 10:18:00 [...] hr, # 30 tab, 0 Refill(s), Pharmacy: [id number], 165, cm, 03/28/22 10:18:00 EST, Height/Length Dosing, 62, kg, 03/28/22 10:18:00 EST, Weight Dosing Start Date: 03/28/22 Status: Ordered Lyrica 25 mg oral capsule 25 mg = 1 cap, Oral, BID, # 56 cap, 0 Refill(s), Pharmacy: [id number], 165, cm, 229:21:00 EST, Height/Length [...] taper., # 63 tab, 0 Refill(s), Pharmacy: [id number], 165, cm, 03/28/22 10:18:00 EST, Height/Length Dosing, 62, kg, 01... Start Date: 03/29/22 Status: Ordered prochlorperazine 10 mg oral tablet 10 mg = 1 tab, Oral, every 8 hr, PRN other (see comment), as needed per [facility] Start Date: 07/08/21 Status: Ordered traMADol 50 mg oral tablet 25 mg = 0.5 tab, Oral, every 6 hr, PRN as needed for pain, # 10 tab, 0 Refill(s), Pharmacy: [facility]156, 165, cm, 03/28/22 10:18:00 EST, Height/Length [...] pain, # 24 tab, 0 Refill(s), Pharmacy: [id number], 165, cm, 03/28/22 10:18:00 [...] II, # 30 tab, 2 Refill(s), Pharmacy: [id number], 165, cm, 08/14/21 10:33:00 [...] meds as of . Lamictal 100mg BID. [place] ER 450mg 1 1/2 tabs qhs. cymbalta 60mg. Zalephon for sleep. Has seen Dr. Sinegr at [facility]. [facility]: 12/03/19: New diagnosis of narcolepsy [...] not like how she felt on it [facility] visit: timeline: ESS always very high in high 10's or 20s. 07/31/18: first time I met patient, she had yahir, then UPPP. complex sleep hx with hypersomnia and insomnia. offered MSLT but unable to pay due to underinsurance. 06/18/19: cont struggle re: sleep attacks, overwhelming excessive daytime sleepiness and fatigue. and severe sleep fragmentation. Modafinil tried in past effective but d/c'ed 03/31 questionable allergicrxn. on vit D. ? Cataplexy: [...] to sleep studies. see narcolepsy section [facility] 12[facility]2020 visit: Medications trialed and unable to tolerate TCAs, duloxetine, gabapentin, lyrica, cyclobenzaprine. She has seen rheumatology . 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 We discussed trial of naltrexone for her chronic pain. Naltrexone 1-4.5 mg qd. Would need to send rx to compounding pharmacy in [place]. Reviewed MOA, side effects. She would also like to get involved in resistance band training. >50% of this 40 minute appointment was spent in face to face counseling. [facility] visit: S/P LT partial thyroidectomy. TSH annually. She is not on thyroid replacement. 7From 11-03-2020 visit: Has been on atorvastatin 20 mg qd since 10/2019. She is tolerating well. Repeat FLP and CMP. 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 Requested [facility] records to review. Order Home Sleep Study, [...] Results Laboratory List Name Date Automated Diff 04/08/22 CBC w/ Diff 04/08/22 Comprehensive Metabolic Panel (CMP) 04/08 Most recent to oldest [Reference Range]: 1 WBC [5.0-10.0 x10^3/mcL] 6.7 x10^3/mcL (04/08/22 4:15 PM) RBC [4.1-5.3 x10^6/mcL] 4.7 x10^6/mcL (04/08/22 4:15 PM) Neutro Auto [40.0-75.0 %] 53.3 % (04/08/22 4:15 PM) Lymph Auto [20.0-50.0 %] 33.9 % (04/08/22 4:15 PM) [place] Auto [2.0-15.0 %] 9.3 % (04/08/22 4:15 PM) Basophil Auto [0.0-1.0 %] 0.6 % (04/08/22 4:15 PM) BUN [7-18 mg/dL] 17 mg/dL (04/08/22 4:15 PM) Glucose Level [74-106 mg/dL] 89 mg/dL (04/08/22 4:15 PM) Potassium Level [3.5-5.1 mmol/L] 3.9 mmo l/L (04/08/22 4:15 PM) MCV [80.0-96.0] 93.0 (04/08/22 4:15 PM) AST [15-37 unit/L] 14 unit/L *LOW* (04/08/22 4:15 PM) ALT [14-59 unit/L] 28 unit/L (04/08/22 4:15 PM) MCHC [31.0-35.0 g/dL] 32.3 g/dL (04/08/22 4:15 PM) Sodium Level [136-145 mmol/L] 136 mmol/L (04/08/22 4:15 PM) Hct [37.0-47.0 %] 43.6 % (04/08/22 4:15 PM) Calcium Level [8.5-10.1 mg/dL] 9.2 mg/dL (04/08/22 4:15 PM) Albumin Level [3.4-5.0 g/dL] 4.1 g/dL (04/08/22 4:15 PM) Protein Total [6.4-8.2 g/dL] 7.5 g/dL (04/08/22 4:15 PM) MCH [26.0-32.0 pg] 30.1 pg (04/08/22 4:15 PM) Neutro Absolute 3.6 x10^3/mcL *NA* (04/08/22 4:15 PM) Bilirubin Total [0.2-1.0 mg/dL] 0.3 mg/d L (04/08/22 4:15 PM) Hgb [12.0-16.0 g/dL] 14.1 g/dL (04/08/22 4:15 PM) Alk Phos [46-146 unit/L] 89 unit/L (04/08/22 4:15 PM) Platelets [130-450 x10^3/mcL] 312 x10^3/ mcL (04/08/22 4:15 PM) CO2 [21-32 mmol/L] 29 mmol/L (04/08/22 4:15 PM) eGFR Non-AA [>=60] 97 (04/08/22 4:15 PM) eGFR AA [>=60] 97 (04/08/22 4:15 PM) Chloride Level [98-107 mmol/L] 101 mmol/ L (04/08/22 4:15 PM) RDW-CV [11.7-17.0 %] 13.2 % (04/08/22 4:15 PM) Imm Gran Auto [0.0-0.9 %] 0.1 % (04/08/22 4:15 PM) Creatinine Level [0.55-1.02 mg/dL] 0.75 mg/dL (04/08/22 4:15 PM) Eos, Auto [1.0-6.0 %] 2.8 % (04/08/22 4:15 PM) Social History Social History Type Response Smoking Status Smoking tobacco use: Never tobacco user;Never 1 entered on: 07/27/21 Sex Female 1How much tobacco do you chew: none What was the date of your most recent tobacco screenin05-25-2021 Patient Care team information Care Team Personnel Name: Dina Diaz Position: Physician Member Role: Informed Provider Address: Address: [facility] [address] [address]- Care Team Related Persons Name: EMY COBOS Address: Home Name: AMARIS DE LA FUENTE Address: Home
--- OUTSIDE RECORDS SUMMARY | 2023-10-04 01:02 | XMS_ITS | Continuity of Care Document ---
Author Organization [facility] Address [address] [place] [address] Care Team Providers Care Route Sales Person Name Role Phone Dian Diaz Primary Care Physician [phone] [facility] Date[facility] 12/21/21 - 12/21/21 [facility] [address] [place] [address] Encounter Diagnosis Biceps tendinitis(Discharge Diagnosis) - 12/21/21 Discharge Disposition: Home or Self Care Attending Physician: Caroline Wilson PA-C Admitting Physician: Caroline Wilson PA-C Referring Physician: Caroline Wilson PA-C Allergies, Adverse Reactions, Alerts Substance Reaction [...] Date Status Refusal Reason influenza virus vaccine, live 11/10/20 Recorded influenza [...] morning, # 90 EA, 3 Refill(s), Pharmacy: [id number], 165, cm,08/14/21 10:33:00 EDT, Height/Length Dosing, 56, kg, 08/14/21 10:33:00 EDT, Weight Dosing Start Date: 11/25/21 Status: Ordered baclofen 10 mg oral tablet See Instructions, as directed per [facility] Start Date: 07/08/21 Status: Ordered buPROPion 300 mg/24 hours (XL) oral tablet, extended release 300 mg = 1 tab, Oral, every morning, # 30 tab, 3 Refill(s), Pharmacy: [id number], 165, cm, 08/14/21 [...] PRN other (see comment), as needed per [facility] Start Date: 07/08/21 Status: Ordered propranolol 10 mg oral tablet 10 mg = 1 tab, Oral, BID, take one tab at 8 am and repeat dose in the late afternoon for anxiety., # 30 tab, 0 Refill(s), Pharmacy: [id number], 165, cm, 08/14/21 10:33:00 EDT, Height/Length Dosing, 56, kg, 08/14/21 10:33:00 EDT, Weight Dosing Start Date: 12/02/21 Status: Ordered traZODone 100 mg oral tablet 100 mg = 1 tab, Oral, every night at bedtime, 0 Refill(s) Start Date: 07/08/21 Status: Ordered Ubrelvy 100 mg oral tablet See Instructions, TAKE 1 TABLET BY MOUTH NEEDED (TAKE AT ONSET OF MIGRAIN, CAN REPEAT DOSE IN 2 HOURS, MAX DOSE OF 200 MG) Start Date: 08/26/21 Status: Ordered Viibryd 10 mg oral tablet Start Date: 08/26/21 Status: Ordered Problem List [...] not like how she felt on [facility]: timeline: ESS always very [...] prior to sleep studies. see narcolepsy [facility]: Medications trialed and unable to tolerate TCAs, duloxetine, gabapentin, lyrica, cyclobenzaprine. She has seen rheumatology . 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 We discussed trial of naltrexone for her chronic pain. Naltrexone 1-4.5 mg qd. Would need to send rx to compounding pharmacy in [place]. Reviewed MOA, side effects. She would also like to get involved in resistance band training. >50% of this 40 minute appointment was spent in face to face counseling. 5From 12-14-2020 visit: S/P LT partial thyroidectomy. TSH annually. She is not on thyroid replacement. 6From 11-03-2020 visit: Has been on atorvastatin 20 mg qd since 10/2019. She is tolerating well. Repeat FLP and CMP. 7suspect to be due to narcolepsy with [facility]aplexy [facility] with additional imaging, BI-RADS: 3, [...] back position sleep From 05-19-2020 visit: 07/31/18: [facility] records not available at time of consult, [...] qualify for fin assistance at [facility] due to just being . Requested [facility] records to review. Order Home Sleep Study, [...] Name: Dina Diaz Address: Address: [facility] [address]
--- OUTSIDE RECORDS SUMMARY | 2023-10-04 01:02 | XMS_ITS | Continuity of Care Document ---
Author Organization [facility] Address [address] [place] [address] Care Team Providers Care President Finance Company Name Role Phone Dina Diaz Primary Care Physician [facility]): [facility]10[facility]21 - 12/10/21 [facility] [address] [place] [address] Encounter Diagnosis Pain of left shoulder region(Discharge Diagnosis) - 12/10/21 Discharge Disposition: Home or Self Care Attending [...] live 11/10/20 Recorded influenza virus vaccine, live 3/5/19 Recorded SARS-CoV-2 (COVID-19) mRNA-1273 vaccine 07/21/20 R [...] morning, # 90 EA, 3 Refill(s), Pharmacy: [id number], 165, cm,08/14/21 10:33:00 EDT, Height/Length Dosing, 56, kg, 08/14/21 10:33:00 EDT, Weight Dosing Start Date: 11/25/21 Status: Ordered baclofen 10 mg oral tablet See Instructions, as directed per [facility] [place] Start Date: 07/08/21 Status: Ordered buPROPion 300 mg/24 hours (XL) oral tablet, extended release 300 mg = 1 tab, Oral, every morning, # 30 tab, 3 Refill(s), Pharmacy: [id number], 165, cm, 08/14/21 10:33:00 [...] other (see comment), as needed per [facility] Start Date: 07/08/21 Status: Ordered propranolol 10 mg oral tablet 10 mg = 1 tab, Oral, BID, take one tab at 8 am and repeat dose in the late afternoon for anxiety., # 30 tab, 0 Refill(s), Pharmacy: [id number], 165, cm, 08/14/21 10:33:00 [...] not like how she felt on it [facility] visit: timeline: ESS always [...] prior to sleep studies. see narcolepsy section 4[facility] 12-14-2020 visit: Medications trialed and unable to tolerate TCAs, duloxetine, gabapentin, lyrica, cyclobenzaprine. She has seen rheumatology . 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 We discussed trial of naltrexone for her chronic pain. Naltrexone 1-4.5 mg qd. Would need to send rx to compounding pharmacy in [place]. Reviewed MOA, side effects. She would also like to get involved in resistance band training. >50% of this 40 minute appointment was spent in face to face counseling. 5[facility] 12-14-2020 visit: S/P LT partial thyroidectomy. TSH annually. She is not on thyroid replacement. 6[facility] 11-03-2020 visit: Has been on atorvastatin 20 mg qd since 10/2019. She is tolerating well. Repeat FLP and CMP. 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 Requested [facility] [place] to [place]. Order [...] information Personnel Name: Dina Diaz Address: Address: On License Of [facility] [place] [id number]
--- OUTSIDE RECORDS SUMMARY | 2023-10-04 01:02 | XMS_ITS | Continuity of Care Document ---
Author Organization [facility] Address [address] [place] [address] Care Team Providers Care Sample Sawyer Name Role Phone Dina Diaz Primary Care Physician [phone] [facility] Date(s): 03/10/22 - 03/10/22 [facility] [address] [place] [address] Encounter Diagnosis Calcification of left breast(Discharge Diagnosis) - 03/10/22 Discharge Disposition: Home or Self Care Attending [...] Radiology* MRI Shoulder w/o Contrast Left 09/01/21 Immunizations Given and Recorded Vaccine Date Status [...] morning, # 90 EA, 3 Refill(s), Pharmacy: [id number], 165, cm,08/14/21 10:33:00 EDT, Height/Length Dosing, 56, kg, 08/14/21 10:33:00 EDT, Weight Dosing Start Date: 11/25/21 Status: Ordered buPROPion 300 mg/24 hours (XL) oral tablet, extended release 300 mg = 1 tab, Oral, every morning, # 30 tab, 2 Refill(s), Pharmacy: [id number], 165, cm, 08/14/21 10:33:00 EDT, Height/Length Dosing, 56, kg, 08/14/21 10:33:00 EDT, Weight Dosing Start Date: 02/11/22 Stop Date: 05/12/22 Status: Ordered Corlanor 5 mg oral tablet See Instructions, TAKE 1/2 (ONE-HALF) TABLET BY MOUTH TWICE DAILY WITH MEALS, # 30 EA, 3 Refill(s),Pharmacy: [id number], 165, cm, 08/14/21 10:33:00 EDT, Height/Length Dosing, 56, kg, 08/14/21 10:33:00 EDT, Weight Dosing Start Date: 02/01/22 Status: Ordered Corlanor 5 mg oral tablet See Instructions, TAKE 1/2 (ONE-HALF) TABLET BY MOUTH TWICE DAILY WITH MEALS, # 30 EA, 3 Refill(s),Pharmacy: [id number], 165, cm, 02/19/22 9:21:00 EST, Height/Length Dosing, 58, kg, 02/19/22 9:21:00 EST, Weight Dosing Start Date: 03/02/22 Status: Ordered cyclobenzaprine 5 mg oral tablet See Instructions, Take 1-2 tablets every 8 hours as needed for muscle spasm, # 30 tab, 0 Refill(s),Pharmacy: [id number], 165, cm, 08/14/21 10:33:00 [...] other (see comment), as needed per [facility] Start Date: 07/08/21 Status: Ordered [...] I, # 7 tab, 0 Refill(s), Pharmacy: [id number], 165, cm,08/14/21 10:33:00 EDT, Height/Length Dosing, 56, kg, 08/14/21 10:33:00 EDT, Weight Dosing Start Date: 01/17/22 Stop Date: 01/24/22 Status: Ordered vilazodone 20 mg oral tablet 20 mg = 1 tab, Oral, Daily, Step II, # 30 tab, 2 Refill(s), Pharmacy: [id number], 165, cm, 08/14/21 10:33:00 [...] sleep studies. see narcolepsy section [facility] visit: Medications trialed and unable to tolerate TCAs, duloxetine, gabapentin, lyrica, cyclobenzaprine. She has seen rheumatology . 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 We discussed trial of naltrexone for her chronic pain. Naltrexone 1-4.5 mg qd. Would need to send rx to compounding pharmacy in [place]. Reviewed MOA, side effects. She would also like to get involved in resistance band training. >50% of this 40 minute appointment was spent in face to face counseling. [facility] 12-14-2020 visit: S/P LT partial thyroidectomy. TSH annually. She is not on thyroid replacement. [facility] 11-03-2020 visit: Has been on atorvastatin 20 mg qd since 10/2019. She is tolerating well. Repeat FLP and CMP. 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 Requested [facility] to review. Order Home Sleep Study, [...] information Personnel Name: Dina Diaz Address: Address: [facility] [address] [address]- [place]
--- OUTSIDE RECORDS SUMMARY | 2023-10-04 01:03 | XMS_ITS | Continuity of Care Document ---
Author Organization [facility] Address [address] [place] [address] Care Team Providers Care Neurology Teacher Name Role Phone Karissarosalie Dina Kinza Primary Care Physician Encounter [facility] [id number] Date(s): 06/20/23 - 06/20/23 [facility] [address] [place] [address] Discharge Disposition: Home or Self Care Attending Physician: Bart Stone PA-C Admitting Physician: Bart Stone PA-C Referring Physician: Bart Stone PA-C Allergies, Adverse Reactions, Alerts Substance Reaction Severity Status SOY Unknown Active WHEAT Unknown Active SHELLFISH DERIVED Anaphylactic reaction Severe A ctive codeine Unknown Active amitriptyline Unknown Active morphine Unknown Active acetaminophen-oxycodone Unknown Unknown Acti ve oxyCODONE Unknown Active HYDROcodone Unknown Unknown Active ARIPiprazole Unknown Active Tree Nuts Unknown Unknown Active TREE AND SHRUB POLLEN 1 Unknown Acti ve metoprolol 2 Depression Unknown Active imipramine Unknown Unknown Active acetaminophen-hydrocodone Unknown Unknown Ac tive modafinil 3 runny nose Difficulty swallowing Other Unknown Active armodafinil 4 Other Unknown Active Roxicet Unknown Unknown Active Provigil Unknown Unknown Active Peanuts Unknown Active Latex 5 no reaction Unknown Active rimegepant Eruption Severe Active DilTIAZem (Eqv-Cardizem CD) Unknown Unknown Active dilTIAZem Depression Chest pain Moderate [...] 2Result Comment: [employer]za[employer] 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: [employer] Medications acetaminophen 325 mg oral tablet 650 mg = 2 tab, Oral, every 4 hr, PRN other (see comment), as needed, 0 Refill(s) Start Date: 07/08/21 Status: Ordered atorvastatin 20 mg oral tablet 1 tab, Oral, every morning, # 90 tab, 3 Refill(s), Pharmacy: [id number], 165, cm, 02/12/23 14:42:00 [...] 90 tab, 1 Refill(s), 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 Lamictal 100mg BID. [place] ER 450mg 1 1/2 tabs qhs. cymbalta 60mg. Zalephon for sleep. Has seen [facility]. [facility] at [facility]. 3From 06-12-2020 visit: 12/03/19: New diagnosis of [...] prior to sleep studies. see [facility]ole[facility]: Medications trialed and unable to tolerate TCAs, duloxetine, gabapentin, lyrica, cyclobenzaprine. She has seen rheumatology . 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 We discussed trial of naltrexone for [...] to be due to narcolepsy with cataplexy [facility]21 with additional [...] back position sleep From 05-19-2020 visit: 07/31/18: [facility] records not available [...] she will qualify for fin assistance at [facility] due to just being . Requested [facility] records to review. [...] Physician Member Role: Informed Provider Address: Address: [facility] [id number] [place] [address] Care Team Related Persons Name: EMY COBOS Address: Home [address] [place] [phone] Name: EMY COBOS Address: Home [address] [facility] [phone]
--- OUTSIDE RECORDS SUMMARY | 2023-10-04 01:03 | XMS_ITS | Continuity of Care Document ---
Author Organization [facility] Address [address] [place] [address] Care Team Providers Care Presentation Designer Name Role Phone Karissarosalie Dina Kinza Primary Care Physician Encounter [facility] [id number] Date(s): 04/26/23 - 04/26/23 [facility] [address] [place] [address] Encounter Diagnosis Narcolepsy with cataplexy(Discharge Diagnosis) - 04/26/23 Insomnia(Discharge Diagnosis) - 04/26/23 Anxiety(Discharge Diagnosis) - 04/26/23 Insomnia(Discharge Diagnosis) - 04/26/23 Narcolepsy with cataplexy(Final) - Insomnia, unspecified(Final) - Anxiety disorder, unspecified(Final) - Discharge Disposition: Home or Self Care Attending Physician: Sindhu Jacobs RETIREMENT BENEFITS SPECIALIST Allergies, Adverse Reactions, Alerts Substance Reaction Severity Status SOY Unknown Active WHEAT Unknown Active SHELLFISH DERIVED Anaphylactic reaction Severe A ctive TREE AND SHRUB POLLEN 1 Unknown Acti ve codeine Unknown Active metoprolol 2 Depression Unknown Active amitriptyline Unknown Active morphine Unknown Active acetaminophen-hydrocodone Unknown Unknown Ac tive acetaminophen-oxycodone Unknown Unknown Acti ve modafinil 3 runny nose Difficulty swallowing Other Unknown Active armodafinil 4 Other Unknown Active oxyCODONE Unknown Active HYDROcodone Unknown Unknown Active ARIPiprazole Unknown Active Tree Nuts Unknown Unknown Active Peanuts Unknown Active imipramine Unknown Unknown Active Roxicet Unknown Unknown Active Provigil Unknown Unknown Active Latex 5 no reaction Unknown Active dilTIAZem Depression Chest pain Moderate Active rimegepant Eruption Severe Active DilTIAZem (Eqv-Cardizem CD) Unknown Unknown Active 1per AllScripts 2depression 3Excessive runny nose and hard to swallow. 4Excessive runny nose and hard to swallow. 5immunotherapy Assessment and Plan Extracted from: Title:Clinic - Office Visit Note Author:Ivette morrison [facility], Sindhu Gan RETIREMENT BENEFITS SPECIALIST Date:04/26/23 1.??Narcolepsy with cataplex y??G47.411 The patient is a pleasant 52-year-old female who follows up today for??new med side effects.?? She is currently taking hydroxyzine 25 mg at bedtime to help with insomnia and was recently?? started wellbutrin SR to help with her daytime symptoms that include feeling sleepy.?? she has tried several?? medications for her narcolepsy over the years, some of which she was not able to tolerate their side effects??while others may have worked initially but then stopped working. ??We had decided together that she would restart??Wellbutrin??as she has tried that in the past without any ill side effects.?? She does note that since starting Wellbutrin SR 150 mg daily??that she does feel less tired during the day.?? Together with hydroxyzine at bedtime, for now, she reports that this is a good combination??And Would like Refills on Both Medicationst.?? refills provided.?? She also mentions and recognizes that when she is experiencing a flair in her chronic pain symptoms, that no medications will help with her sleep or daytime symptoms.?? she is working with [facility] pain clinic to address some of her pain related concerns. Actions: ORDERED - hydrOXYzine, 25 mg = 1 tab, Oral, As Directed, PRN insomnia/anxiety, take 1 tab at bedtime prn, # 90 tab, 1 Refill(s), 04/26/24 9:37:00 EST, Pharmacy: [id number], 165.1, cm, 04/26/23 9:23:00 EST, Height, 66.22, kg, 04/26/23 9:24:00 EST, Weight Dosing, take 1 tab at bedtime prn FUTURE - Follow-Up Appointment Request NCTY, *Est. 10/25/23 +/- 28 days, Future Order, In [facility] ?? Anxiety??F41.9 See above and below Actions: ORDERED - hydrOXYzine, 25 mg = 1 tab, Oral, As Directed, PRN insomnia/anxiety, take 1 tab at bedtime prn, # 90 tab, 1 Refill(s), 04/26/24 9:37:00 EST, Pharmacy: [id number], 165.1, cm, 04/26/23 9:23:00 EST, Height, 66.22, kg, 04/26/23 9:24:00 EST, Weight Dosing, take 1 tab at bedtime prn ?? Insomnia??G47.00 Hydroxyzine 25 mg nightly as needed and is effective??to help her get to sleep and also if she wakes during the night help her fall back to sleep. ??Overall??she feels she is getting better quality sleep. ??She does suffer from chronic pain with acute flares and endorses the fact that no matter??what she takes during an acute flare??nothing seems to help medication green. Actions: ORDERED - hydrOXYzine, 25 mg = 1 tab, Oral, As Directed, PRN insomnia/anxiety, take 1 tab at bedtime prn, # 90 tab, 1 Refill(s), 04/26/24 9:37:00 EST, Pharmacy: [id number], 165.1, cm, 04/26/23 9:23:00 EST, Height, 66.22, kg, 04/26/23 9:24:00 EST, Weight Dosing, take 1 tab at bedtime prn ?? Additional Actions: DISCONTINUED - hydrOXYzine, 25 mg = 1 tab, Oral, QID, PRN cough, # 80 tab, 0 Refill(s), 02/13/24 14:44:00 EST, Pharmacy: [id number], 165, cm, 02/12/23 14:42:00 EST, Height, 67.75, kg, 02/07/23 10:12:00 EST, Weight Dosing I provided greater than??30??minutes in the care of this patient, more than half the time was spent in [id number] counseling. ?with comorbidities of ?? narcolepsy/cataplexy,Fibromyalgia, hypothyroidism, borderline personality disorder, bipolar disorder, degeneration of lumbar intervertebral discs, arthritis, migraine headaches, PTSD, history of vitamin D deficiency ? Clinical Data Reviewed: Vernon Sleepiness Scale: ? Sleep Clinical Timeline:? 11/05/2019.?? PSG diagnostic.?? Longstanding history for excessive daytime sleepiness, remote history of sleep paralysis and suspicious symptoms for cataplexy ESS weight 173 pounds BMI 28.79 Sleep efficiency 57% 1.?? No evidence of sleep disordered breathing 2.?? However when patient was directly lying supine, she has significant hypopneas and RERAs during REM sleep.?? When she was slightly tilted laterally but computer still labeled supine sleep those respiratory events were mostly resolved even during REM sleep. 3.?? Overall AHI 2.9/h, overall RDI 4.7/h, REM AHI 7.2/h, supine AHI 5/h, right lateral AHI N/AA, left lateral AHI 0/h, prone AHI N/AA. 4.?? Mean SPO2 93% and patti SPO2 76% on room air, 2.9 minutes were spent with SPO2 less than or equal to 88% on room air. 5.?? PSG evidence suspicious for restless leg syndrome. ?? 11/06/2019 MSLT Hydroxyzine 25 mg was taken at night to help with sleep maintenance.?? Doxepin was used for insomnia but stopped 3 weeks prior to PSG/MSLT. 2-week sleep log was obtained and reviewed patient had 7-10+ hours sleep windows nightly for the 2 weeks prior to the sleep study.?? Total amount of hours slept was not easily estimated as she noted multiple awakenings on most nights and poor to fair quality sleep.?? Urine drug screen was negative.?? The PSG performed the night before the study was negative for YAHIR ?? The patient slept on 5 out of 5 naps with a mean sleep latency score of 3.40 minutes for 5 naps.?? There was 0 sleep onset REM.'s seen. ?? MSLT score of 3.40 minutes with 0 sleep onset REM.?? After sleeping 332 minutes on previous night is suggestive of at least idiopathic hypersomnia.?? With clinical history of cataplexy patient fits clinical diagnosis of narcolepsy with cataplexy.?? Note MSLT can have false negative result for narcolepsy ?? 05/19/2020. Last OV with Dr. Wiggins. prescribed trial of xywav again,?? also offered to try wakix 4.45 mg x 1.5 tabs??vs low dose vyvanse 10 mg Qam; ESS always elevated ; insomnia trying xywav as??insomnia symptoms may be related more ??to her narcolepsy, ?? 12/28/2022. re-eval, insomnia, narcolepsy, patient's main concern at this time is her insomnia symptoms, currently using trazadone which was initially effective however, that is now less effective, waking up during the night, discussed with Dr Wiggins, repeat PSG at this point not required given the negative??results of her previous PSG for YAHIR.?Discussed with patient trial of doxepin 3 mg 1 tab QHS increase to 2 tabs QHS, no ill side effects when she was taking it previously.??Could also consider restarting wellbutrin for narcolepsy as she has taken that in the past as well. ? 03/16/2023: ? trial re-starting Wellbutrin SR 150mg during the day and Hydroxyzine 25mg at night. Doxepine 6mg was not effective for her sleep. ?? 04/26/2023:??Hydroxyzine 25 mg is working??well for her at bedtime, refill provided, it helps her to fall asleep and also??fall back to sleep if she wakes during the night. ??Overall she feels her quality of sleep has improved. ??She was started on Wellbutrin SR 150 mg at last office visit??and reports that it is??helping her to feel less tired during the day??and that she is not having any ill side effects from the medication. ??Overall she feels that with hydroxyzine and Wellbutrin she is able to get a better quality sleep??and have less sleep related symptoms during the day. ??She does make a good point that no matter??what medication she is on if she is experiencing a flare in her chronic pain??that it makes it difficult for her to get good sleep??and impacts her energy level during the day??she is currently working with [facility] pain clinic to address some of those needs.?? Follow-up in 6 months ?? meds tried: lunesta changed her mood (made her angry); trazodone-variable effect, allergic rhinitis not tolerated; hydrozyxine 50 to 100mg - made her very sleepy nxt day; ambien (she doesnt recall dose) caused sleepwalking; doxepin 3 to 6mg - effective for about 3 months but then not effective anymore; ramelton worked for few weeks then ineffectve; amitrytyline - tachycardia; imipramine (shut down her kidneys), mirtazipine 15mg - ineffective ? Today's Assessment and Plan: ?? See above ?? Follow up: ?? 6 months orsooner if needed. ? 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: [employer] Medications acetaminophen 325 mg oral tablet 650 mg = 2 tab, Oral, every 4 hr, PRN other (see comment), as needed, 0 Refill(s) Start Date: 07/08/21 Status: Ordered albuterol 90 mcg/inh aerosol inhaler 2 puffs, Inhale, every 6 hr, PRN as needed for wheezing, # 8 g, 0 Refill(s), Pharmacy: [id number], 165, cm, 01/04/23 10:12:00 EST, Height, 66.65, kg, 01/30/23 13:31:00 EST, Weight Dosing Start Date: 01/30/23 Status: Ordered atorvastatin 20 mg oral tablet 1 tab, Oral, every morning, # 90 tab, 3 Refill(s), Pharmacy: [facility] [id number], 165, cm, 02/12/23 14:42:00 EST, Height, 67.75, [...] hours, # 30 cap, 0 Refill(s), Pharmacy: [id number], 165, cm, 01/04/23 10:12:00 EST, Height, 66.65, kg,01/30/23 13:31:00 EST, Weight Dosing Start Date: 01/31/23 Status: Ordered doxepin 3 mg oral tablet See Instructions, take 1 to 2 tab Oral every day at bedtime, # 30 tab, 1 Refill(s), Pharmacy: [id number], 165, cm, 01/04/23 10:12:00 EST, Height, 69.22, [...] 90 tab, 1 Refill(s), 04/26/24 8:37:00 AM JAMB CUTTER, Pharmacy: [id number], 165.1, cm, 04/26/23 9:23:00 EST, Height, 66.22, kg, 04/26/23 9:24:00 EST, Weight Dosing Start Date: 04/26/23 Stop Date: 04/26/24 Status: Ordered hydrOXYzine hydrochloride 25 mg oral tablet Oral, 1 Unknown, 1 Refill(s), Take 1 tablet by mouth as needed., 0 Refill(s) Start Date: 09/15/22 Status: Ordered ipratropium-albuterol 0.5 mg-2.5 mg/3 mL inhalation solution 3 mL, Nebulized Inhalation, QID, PRN dyspnea, # 30 EA, 1 Refill(s), Pharmacy: [id number], 165, cm, 01/04/23 10:12:00 EST, Height, 67.75, kg, 02/07/23 10:12:00 EST, Weight Dosing Start Date: 02/07/23 Status: Ordered ketorolac See Instructions, PRN, 0 Refill(s) Start Date: 09/16/22 Status: Ordered nebulizer machine nebulizer machine, use nebulizer 3-4X/day for dyspnea, wheezing and cough, Supply, See instructions, # 1 EA, 0 Refill(s) Start Date: 02/07/23 Status: Ordered Nurtec ODT 75 mg oral tablet, disintegrating 0 Refill(s) Start Date: 08/16/22 Status: Ordered predniSONE 10 mg oral tablet See Instructions, 5 tabs x 3 days, 4 tabs x 3 days, 3 tabs x 3 days, 2 tabs x 3 days, 1 tab x 3 days, then stop, # 45 tab, 0 Refill(s), Pharmacy: [id number], 165, cm, 01/04/23 10:12:00 EST, Height, 67.75, kg, 02/07/23 10:12:00 EST, Weight Dosing Start Date: 02/07/23 Status: Ordered prochlorperazine 10 mg oral tablet 10 mg = 1 tab, Oral, every 8 hr, PRN other (see comment), as needed per [facility] headache clinic Start Date: 07/08/21 Status: Ordered traZODone 100 mg oral tablet See Instructions, TAKE 1 TABLET BY MOUTH ONCE DAILY AT BEDTIME, # 90 tab, 3 Refill(s), Pharmacy: [id number], 165, cm, 04/12/22 13:34:00 EST, Height/Length Dosing, 59.87, kg, 04/12/22 13:34:00 EST, Weight Dosing Start Date: 11/09/22 Status: Ordered traZODone 50 mg oral tablet 50 mg = 1 tab, Oral, every night at bedtime, PRN as needed for sleep, # 30 tab, 2 Refill(s), Pharmacy: [id number], 165, cm, 01/04/23 10:12:00 EST, Height, 68.08, kg, 01/13/23 13:29:00 EST,Weight Dosing Start Date: 01/13/23 Stop Date: 04/13/23 Status: Ordered Ubrelvy 100 mg oral tablet See Instructions, TAKE 1 TABLET BY MOUTH NEEDED (TAKE AT ONSET OF MIGRAIN, CAN REPEAT DOSE IN 2 HOURS, MAX DOSE OF 200 MG) Start Date: 08/26/21 Status: Ordered Wellbutrin SR 150 mg/12 hours oral tablet, extended release 150 mg = 1 tab, Oral, Daily, # 90 tab, 1 Refill(s), Pharmacy: [id number], 165.1, cm, 04/26/23 9:23:00 EST, Height, 66.22, kg, 04/26/23 9:24:00 EST, Weight Dosing Start Date: 04/26/23 Status: Ordered Problem List Condition Confirmation Course [...] meds as of . Lamictal 100mg BID. [place] [facility] 450mg 1 1/2 tabs qhs. cymbalta 60mg. Zalephon for sleep. Has seen Dr. Singer at [facility]. 3From 06-12-2020 visit: 12/03/19: New [...] like how she felt on it [facility] 05-[facility] visit: timeline: ESS always very high [...] prior to sleep studies. see narcolepsy section [facility] 12-14-2020 visit: Medications trialed and unable to tolerate TCAs, duloxetine, gabapentin, lyrica, cyclobenzaprine. She has seen rheumatology . 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 We discussed trial of naltrexone for her chronic pain. Naltrexone 1-4.5 mg qd. Would need to send rx to compounding pharmacy in [place]. Reviewed MOA, side effects. She would also like to get involved in resistance band training. >50% of this 40 minute appointment was spent in face to face counseling. [facility] 12-14-2020 visit: S/P LT partial thyroidectomy. TSH annually. She is not on thyroid replacement. [facility] 11-03-2020 visit: Has been on atorvastatin 20 mg qd since 10/2019. She is tolerating well. Repeat FLP and CMP. 8suspect to be due to narcolepsy with cataplexy [facility] consultation 01/07/21 with additional imaging, BI-RADS: [...] position sleep From 05-19-2020 visit: 07/31/18: [facility] records not available [...] qualify for fin assistance at [facility] due to just being . Requested [facility] records to review. [...] Range]: 1 Peripheral Pulse Rate [60-100 bpm] 99 bp m (04/26/23 9:23 AM) Blood Pressure [90-140/60-90 mmHg] 93/64 mmHg (04/26/23 9:23 AM) Mean Arterial Pressure, Cuff [65-140 mmH g] 74 mmHg (04/26/23 9:23 AM) Weight 66.22 kg (04/26/23 9:23 AM) Weight Measured (lbs) 145.99 lb (04/26/23 9:23 AM) Weight Dosing 66.220 kg (04/26/23 9:23 AM) Height 165.10 cm (04/26/23 9:23 AM) Height/Length Measured (inches) 65 inch (04/26/23 9:23 AM) BSA Measured 1.74 m2 (04/26/23 9:23 AM) Body Mass Index 24.29 kg/m2 (04/26/23 9:23 AM) Social History Social History Type Response Smoking Status Smoking tobacco use: Never tobacco user;Never 1 entered on: 08/16/22 Sex Female 1How much tobacco do you chew: none What was the date of your most recent tobacco screenin05-25-2021 Physician Outpatient Note * Sindhu Jacobs RETIREMENT BENEFITS SPECIALIST: PERFORM Event Display: Office Clinic Note Physician Authored Date: [id number] CODY COBOS :1970 Age:52 years Sex:Female Visit Date:04/26/2023 Primary Care Physician: Dina Diaz Chief Complaint new med side effect History of Present Illness The patient is a pleasant 52-year-old female who follows up today for insomnia??and new med side effects.?? New ?? Today: She is currently taking hydroxyzine 25 mg at bedtime. ??She initially was started on hydroxyzine for a cough??which did help with her cough but then she also realized it was helping her sleep better at night??so she wanted to continue taking hydroxyzine??low-dose at bedtime. ??She continues to report the hydroxyzine is working well for her??and helping her get the quality sleep that she needs. ??She feels that while she is on it it also helps her to fall back to sleep??easier if she wakes during the night. ?? At her last office visit we discussed trying Wellbutrin SR 150 mg daily??given her history of??narcolepsy??and poor quality sleep. ??She has tried several meds in the past??none of which??have helpedsignificantly or if they had the benefits wore off fairly quickly. ??She is happy to report that the Wellbutrin is helping her??during the day, she feels??less tired.?? Overall she is pleased with her ??current medication regimen. ?? She does endorse??significant??body pain that can flare??and??therefore no matter what medications she is on??nothing really seems to help??significantly if she is experiencing??a flare in her chronic pain.?? She is aware??of this and has other tools in her toolbox??to help her deal??with the symptoms??at that time. Review of Systems A 10-point REVIEW OF SYSTEM was obtained and reviewed, includes CONSTITUTIONAL, EYES, NOSE, THROAT,RESPIRATORY, HEART, GASTROINTESTINAL, UROLOGIC, MUSCULOSKELETAL, PSYCHIATRY, SKIN systems. Pertinent symptoms are discussed in history, otherwise negative.?? Physical Exam Vitals & Measurements HR:??99??(Peripheral)?? BP:??93/64?? SpO2:??96%?? HT:??165.10??cm?? WT:??66.22??kg?? BMI:??24.29?? BSA:??1.74?? General:??well appearing, appearing stated age, no acute distress,??normal??build HEENT: atraumatic skull, anicteric RESPIRATORY: quiet respiration, able to speak in full sentences without dyspnea, no accessory muscle use SKIN: no facial skin rash, no facial skin lesions PSYCHIATRIC: well groomed, fluent speech, good insight, linear thought process, good eye contact,balanced??affect NEUROLOGIC: alert, oriented, symmetric facial expression?? Clinic Assessment/Plan 1.??Narcolepsy with cataplexy??G47.411 The patient is a pleasant 52-year-old female who follows up today for??new med side effects.?? She is currently taking hydroxyzine 25 mg at bedtime to help with insomnia and was recently?? started wellbutrin SR to help with her daytime symptoms that include feeling sleepy.?? she has tried several??medications for her narcolepsy over the years, some of which she was not able to tolerate their side effects??while others may have worked initially but then stopped working. ??We had decided together that she would restart??Wellbutrin??as she has tried that in the past without any ill side effects.?? She does note that since starting Wellbutrin SR 150 mg daily??that she does feel less tired during the day.?? Together with hydroxyzine at bedtime, for now, she reports that this is a good combination??And Would like Refills on Both Medicationst.?? refills provided.?? She also mentions and recognizes that when she is experiencing a flair in her chronic pain symptoms, that no medications will help with her sleep or daytime symptoms.?? she is working with [facility] pain clinic to address some of her pain related concerns. Actions: ORDERED - hydrOXYzine, 25 mg = 1 tab, Oral, As Directed, PRN insomnia/anxiety, take 1 tab at bedtime prn, # 90 tab, 1 Refill(s), 04/26/24 9:37:00 EST, [facility], 165.1, cm, 04/26/23 9:23:00 EST, Height, 66.22, kg, 04/26/23 9:24:00 EST, Weight Dosing, take 1 tab at bedtime prn FUTURE - Follow-Up Appointment Request NCTY, *Est. 10/25/23 +/- 28 days, Future Order, In [facility] ?? Anxiety??F41.9 See above and below Actions: ORDERED - hydrOXYzine, 25 mg = 1 tab, Oral, As Directed, PRN insomnia/anxiety, take 1 tab at bedtime prn, # 90 tab, 1 Refill(s), 04/26/24 9:37:00 EST, Pharmacy: [facility], 165.1, cm, 04/26/23 9:23:00 EST, Height, 66.22, kg, 04/26/23 9:24:00 EST, Weight Dosing, take 1 tab at bedtime prn ?? Insomnia??G47.00 Hydroxyzine 25 mg nightly as needed and is effective??to help her get to sleep and also if she wakes during the night help her fall back to sleep. ??Overall??she feels she is getting better quality sleep. ??She does suffer from chronic pain with acute flares and endorses the fact that no matter??what she takes during an acute flare??nothing seems to help medication green. Actions: ORDERED - hydrOXYzine, 25 mg = 1 tab, Oral, As Directed, PRN insomnia/anxiety, take 1 tab at bedtime prn, # 90 tab, 1 Refill(s), 04/26/24 9:37:00 EST, Pharmacy: [id number], 165.1, cm, 04/26/23 9:23:00 EST, Height, 66.22, kg, 04/26/23 9:24:00 EST, Weight Dosing, take 1 tab at bedtime prn ?? Additional Actions: DISCONTINUED - hydrOXYzine, 25 mg = 1 tab, Oral, QID, PRN cough, # 80 tab, 0 Refill(s), 02/13/24 14:44:00 EST, Pharmacy: [id number], 165, cm, 02/12/23 14:42:00 EST, Height, 67.75, kg, 02/07/23 10:12:00 EST, Weight Dosing I provided greater than??30??minutes in the care of this patient, more than half the time was spentin [id number] counseling. ?with comorbidities of narcolepsy/cataplexy,Fibromyalgia, hypothyroidism, borderline personality disorder, bipolar disorder, degeneration of lumbar intervertebral discs, arthritis, migraine headaches, PTSD, history of vitamin D deficiency ? Clinical Data Reviewed: Vernon Sleepiness Scale: ? Sleep Clinical Timeline:? 11/05/2019.?? PSG diagnostic.?? Longstanding history for excessive daytime sleepiness, remote historyof sleep paralysis and suspicious symptoms for cataplexy ESS weight 173 pounds BMI 28.79 Sleep efficiency 57% 1.?? No evidence of sleep disordered breathing 2.?? However when patient was directly lying supine, she has significant hypopneas and RERAs duringREM sleep.?? When she was slightly tilted laterally but computer still labeled supine sleep those respiratory events were mostly resolved even during REM sleep. 3.?? Overall AHI 2.9/h, overall RDI 4.7/h, REM AHI 7.2/h, supine AHI 5/h, right lateral AHI N/AA, left lateral AHI 0/h, prone AHI N/AA. 4.?? Mean SPO2 93% and patti SPO2 76% on room air, 2.9 minutes were spent with SPO2 less than or equal to 88% on room air. 5.?? PSG evidence suspicious for restless leg syndrome. ?? 11/06/2019 MSLT Hydroxyzine 25 mg was taken at night to help with sleep maintenance.?? Doxepin was used for insomnia but stopped 3 weeks prior to PSG/MSLT. 2-week sleep log was obtained and reviewed patient had 7-10+ hours sleep windows nightly for the 2 weeks prior to the sleep study.?? Total amount of hours slept was not easily estimated as she noted multiple awakenings on most nights and poor to fair quality sleep.?? Urine drug screen was negative.?? The PSG performed the night before the study was negative for YAHIR ?? The patient slept on 5 out of 5 naps with a mean sleep latency score of 3.40 minutes for 5 naps.?? There was 0 sleep onset REM.'s seen. ?? MSLT score of 3.40 minutes with 0 sleep onset REM.?? After sleeping 332 minutes on previous night is suggestive of at least idiopathic hypersomnia.?? With clinical history of cataplexy patient fits clinical diagnosis of narcolepsy with cataplexy.?? Note MSLT can have false negative result for narcolepsy ?? 05/19/2020. Last OV with Dr. Wiggins. prescribed trial of xywav again,?? also offered to try wakix 4.45mg x 1.5 tabs??vs low dose vyvanse 10 mg Qam; ESS always elevated -12/20; insomnia trying xywav as??insomnia symptoms may be related more ??to her narcolepsy, ?? 12/28/2022. re-eval, insomnia, narcolepsy, patient's main concern at this time is her insomnia symptoms, currently using trazadone which was initially effective however, that is now less effective, waking up during the night, discussed with Dr Wiggins, repeat PSG at this point not required given the negative??results of her previous PSG for YAHIR.?Discussed with patient trial of doxepin 3 mg 1 tab QHS increase to 2 tabs QHS, no ill side effects when she was taking it previously.??Could also consider restarting wellbutrin for narcolepsy as she has taken that in the past as well. ? 03/16/2023: trial re-starting Wellbutrin SR 150mg during the day and Hydroxyzine 25mg at night. Doxepine 6mg was not effective for her sleep. ?? 04/26/2023:??Hydroxyzine 25 mg is working??well for her at bedtime, refill provided, it helps her to fall asleep and also??fall back to sleep if she wakes during the night. ??Overall she feels her quality of sleep has improved. ??She was started on Wellbutrin SR 150 mg at last office visit??and reports that it is??helping her to feel less tired during the day??and that she is not having any ill side effects from the medication. ??Overall she feels that with hydroxyzine and Wellbutrin she is able to get a better quality sleep??and have less sleep related symptoms during the day. ??She does make a good point that no matter??what medication she is on if she is experiencing a flare in her chronic pain??that it makes it difficult for her to get good sleep??and impacts her energy level duringthe day??she is currently working with [facility] pain clinic to address some of those needs.?? Follow-up in 6 months ?? meds tried: lunesta changed her mood (made her angry); trazodone-variable effect, allergic rhinitis not tolerated; hydrozyxine 50 to 100mg - made her very sleepy nxt day; ambien (she doesnt recalldose) caused sleepwalking; doxepin 3 to 6mg - effective for about 3 months but then not effective anymore; ramelton worked for few weeks then ineffectve; amitrytyline - tachycardia; imipramine (shut down her kidneys), mirtazipine 15mg - ineffective ? Today's Assessment and Plan: See above ?? Follow up: 6 months orsooner if needed. Problem List/Past Medical History Ongoing Abnormal cervical Papanicolaou smear Allergic rhinitis Anaphylaxis Anxiety Arthritis Bilateral knee pain Bipolar disorder Borderline personality disorder Cataplexy and narcolepsy Cobalamin deficiency Community acquired pneumonia Daytime somnolence Degeneration of lumbar intervertebral disc Female stress incontinence Fibromyalgia Herniation of nucleus pulposus of lumbar intervertebral disc History of subtotal thyroidectomy Human papilloma virus infection Hyperlipidemia Hypothyroidism Incomplete bladder emptying Injury of left shoulder Insomnia Laryngopharyngeal reflux Low back pain Mammography abnormal Medication overuse headache Migraine Mixed anxiety and depressive disorder Morbid obesity Narcolepsy with cataplexy Neuropathy Obstructive sleep apnea syndrome Partial mastectomy [...] Medications What How Much When Why Instructions Changed hydrOXYzine (hydrOXYzine hydrochloride 25 mg oral tablet) 1 tab Oral (given by mouth) As Directed as needed for insomnia/anxiety Insomnia Anxiety Narcolepsy with cataplexy take 1 tab at bedtime prn ?? Pickup at [id number] Changed hydrOXYzine (hydrOXYzine hydrochloride 25 mg oral tablet) Oral (given by mouth) 1 Unknown, 1 Refill(s), Take 1 tablet by mouth as needed. ?? Unchanged acetaminophen (acetaminophen 325 mg oral tablet) 2 tab Oral (given by mouth) Every 4 hours as needed for other (see comment) as needed ?? Unchanged albuterol (albuterol 90 mcg/ inh aerosol inhaler) 2 Puffs Inhale (breathe in) Every 6 hours as needed for as needed for wheezing Community acquired pneumonia Unchanged atorvastatin (atorvastatin 20 mg oral tablet) 1 tab Oral (given by mouth) Every morning Unchanged baclofen (baclofen 10 mg oral tablet) 90 EA, TAKE 1 TABLET BY MOUTH THREE TIMES DAILY NEEDED FOR MILD TO MODERATE HEADACHES - MAX DAILY DOSE 3 TABLETS (30MG) ?? Unchanged benzonatate (benzonatate 100 mg oral capsule) 1 Capsules Oral (given by mouth) Every 8 hours as needed for as needed for cough Lumbar radiculopathy 1-2 tabs for cough every 8 hours ?? Unchanged buPROPion (Wellbutrin SR 150 mg/ 12 hours oral tablet, extended release) 1 tab Oral (given by mouth) Every day Insomnia Narcolepsy with cataplexy Unchanged doxepin (doxepin 3 mg oral tablet) See instructions Insomnia take 1 to 2 tab Oral every day at bedtime ?? Unchanged Durable Medical Equipment for Prescription (nebulizer machine) See instructions Acute bronchitis Pneumonia Asthma use nebulizer 3-4X/ day for dyspnea, wheezing and cough ?? Unchanged EPINEPHrine (EPINEPHrine 0.3 mg injectable kit) 1 auto Intramuscular (in a muscle) As Directed as needed for other (see comment) as needed ?? Unchanged ipratropium-albuterol (ipratropium-albuterol 0.5 mg-2.5 mg/ 3 mL inhalation solution) 3 Milliliters Nebulized inhalation (inhale using nebulizer) 4 times a day as needed for dyspnea Unchanged ketorolac See instructions PRN ?? Unchanged predniSONE (predniSONE 10 mg oral tablet) See instructions Acute bronchitis 5 tabs x 3 days, 4 tabs x 3 days, 3 tabs x 3 days, 2 tabs x 3 days, 1 tab x 3 days, then stop ?? Unchanged prochlorperazine (prochlorperazine 10 mg oral tablet) 1 tab Oral (given by mouth) Every 8 hours as needed for other (see comment) as needed per [facility] ?? Unchanged rimegepant (Nurtec ODT 75 mg oral tablet, disintegrating) Unchanged traZODone (traZODone 100 mg oral tablet) See instructions Insomnia TAKE 1 TABLET BY MOUTH ONCE DAILY AT BEDTIME ?? Unchanged traZODone (traZODone 50 mg oral tablet) 1 tab Oral (given by mouth) Every night at bedtime as needed for as needed for sleep Duration: 30 Days Unchanged ubrogepant (Ubrelvy 100 mg oral tablet) See instructions TAKE 1 TABLET BY MOUTH NEEDED (TAKE AT ONSET OF MIGRAIN, CAN REPEAT DOSE IN 2 HOURS, MAX DOSE OF200 MG) ?? Pharmacy Information [id number]: [address] [place], [place] [id number] [phone] Allergies SHELLFISH DERIVED??(Anaphylactic reaction) rimegepant??(Eruption) dilTIAZem??(Depression, Chest pain) ARIPiprazole DilTIAZem (Eqv-Cardizem CD)??(Unknown) HYDROcodone??(Unknown) Latex??(no reaction) Peanuts Provigil??(Unknown) Roxicet??(Unknown) SOY TREE AND SHRUB POLLEN Tree Nuts??(Unknown) WHEAT acetaminophen-hydrocodone??(Unknown) acetaminophen-oxycodone??(Unknown) amitriptyline armodafinil??(Other) codeine imipramine??(Unknown) metoprolol??(Depression) modafinil??(runny nose, Difficulty swallowing, Other) morphine oxyCODONE Social History Alcohol Past- Comments: None Rarely Electronic Cigarette/Vaping Electronic Cigarette Use: Never. 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 Home/Environment Lives with Spouse. Nutrition/Health Diet: Regular. Caffeine intake amount: 2 [...] Rheumatoid arthritis: Sister. Immunizations Vaccine Date Status influenza virus vaccine, inactivated 12/27/2022 Recorded Comments : danielarosebud zoster vaccine, inactivated 06/12/2022 [facility]ed [facility] : [facility], [facility] 12/22/2021 Given influenza virus vaccine, live 11/10/2020 Recorded SARS-CoV-2 (COVID-19) mRNA-1273 vaccine 07/21/2020 Recorded SARS-CoV-2 (COVID-19) mRNA-1273 vaccine 06/21/2020 Recorded influenza virus vaccine, live 05/01/2018 Recorded measles/mumps/rubella virus vaccine 04/01/2014 Recorded influenza, unspecified formulation 04/01/2014 Recorded tetanus/diphth/pertuss (Tdap) adult/adol 05/24/2013 Recorded influenza, unspecified formulation 12/31/2010 Recorded Comments : Master Fisher: GlaxoSmithKline Td(adult) unspecified formulation 04/27/2010 Recorded Td(adult) unspecified formulation 04/27/2010 Recorded influenza, unspecified formulation 01/18/2010 Recorded Comments : Master Fisher: Sanofi Pasteur tetanus immune globulin 06/05/2007 Recorded Electronically Signed on 04/26/23 09:59 AM Kye [facility] Patient Care team information Care Team Personnel Name: Dina Diaz Position: Physician Member Role: Informed Provider Address: Address: [facility] [address] [address]- Care Team Related Persons Name: EMY COBOS Address: Home [address] [place] [phone] Name: EMY COBOS Address: [address] [phone]
--- OUTSIDE RECORDS SUMMARY | 2023-10-04 01:03 | XMS_ITS | Continuity of Care Document ---
Author Organization [facility] Address [address] [place] [address] Care Team Providers Care [employer] Counter Assistant Name Role Phone Dina Diaz Primary Care Physician Encounter [facility] [id number] Date(s): 08/25/23 - 08/25/23 [facility] [address] [place] [address] Discharge Disposition: Home or Self Care Attending [...] 2Result Comment: [employer] 3Result Comment: Desktop Support Technician: Foodilyine 4Result Comment: Desktop Support Technician: Sanofi Pasteur Medications acetaminophen 325 mg oral tablet 650 mg = 2 tab, Oral, every 4 hr, PRN other (see comment), as needed, 0 Refill(s) Start Date: 07/08/21 Status: Ordered atorvastatin 20 mg oral tablet 1 tab, Oral, every morning, # 90 tab, 3 Refill(s), Pharmacy: [id number], 165, cm, 02/12/23 14:42:00 [...] needed, # 1 EA, 0 Refill(s), Pharmacy: [facility], 165.1, cm, 04/26/23 9:23:00 EST, Height, 66.85, kg, 05/22/23 15:26:00 EDT, Weight Dosing Start Date: 06/27/23 Status: Ordered hydrOXYzine hydrochloride 25 mg oral tablet 25 mg = 1 tab, Oral, As Directed, PRN insomnia/anxiety, take 1 tab at bedtime prn, # 90 tab, 1 Refill(s), 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 Lamictal 100mg BID. [facility] 450mg 1 1/2 tabs qhs. 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 We discussed trial of naltrexone for her chronic pain. Naltrexone 1-4.5 mg qd. Would need to send rx to compounding pharmacy in [place]. Reviewed MOA, side effects. She would also [...] to be due to narcolepsy with cataplexy [facility] consultation 01/07/21 with additional imaging, BI-RADS: 3, [...] position sleep From 05-19-2020 visit: 07/31/18: [facility] records not available at time of consult, [...] she will qualify for fin assistance at [facility] due to just being . Requested [facility] records to review. Order Home Sleep Study, [...] repair 09/2009 Results Laboratory List Name Date [facility] 08/25/23 Hemoglobin A1c 08/25/23 Lipid Panel 08/25/23 TSH w/ Rflx to Free T4 08/25/23 Most recent to oldest [Reference Range]: 1 Cholesterol Total [50-200 mg/dL] 171 mg/ dL (08/25/23 7:31 AM) LDL [0-130 mg/dL] 71 mg/dL (08/25/23 7:31 AM) HDL [40-60 mg/dL] 83 mg/dL *HI* (08/25/23 7:31 AM) Triglycerides [0-150 mg/dL] 87 mg/dL (08/25/23 7:31 AM) TSH [0.358-3.740 mcIntlUnit/mL] 1.140 mc IntlUnit/mL (08/25/23 7:31 AM) Hemoglobin A1c [4.0-5.6 %] 5.5 % 1 (08/25/23 7:31 AM) [facility] [See Note mIntlUnit/mL] 90.8 mIn tlUnit/mL 2 *NA* (08/25/23 7:31 AM) 1Interpretive Data: New test method effective 03-28-23. Establishment of new HA1c baseline is recommended. The following A1c interpretive data reflect the 2017 [place] Diabetes Association (ADA) guidelinesand will be reported with each A1c result: Normal: <5.7% Prediabetes: 5.7 - 6.4% Diagnostic for diabetes (if confirmed): ???6.5% 2Result Comment: NOTE: Female [facility] Reference Ranges (Menstruating): PHYSIOLOGICAL STATUS REFERENCE RANGE Follicular (-12 to -4 days): 2.5 - 10.2 mIU/mL Midcycle (-3 to +2 days): 3.4 - 33.4 mIU/mL Luteal (+4 to +12 days): 1.5 - 9.1 mIU/mL Postmenopausal: 23.0 - 116.3 mIU/mL Reference Ranges for pediatric non-menstruating female patients have not been established. Test performed [place] [address] Social History Social History Type Response Smoking Status Smoking tobacco use: Never tobacco user;Never 1 entered on: 08/16/22 Sex Female 1How much tobacco do you chew: none What was the date of your most recent tobacco screenin05-25-2021 Patient Care team information Care Team Personnel Name: Dina Diaz Position: Physician Member Role: Informed Provider Address: Address: [facility] [address] [address]- Care Team Related Persons Name: EMY COBOS Address: Home [address] [place] [address], [phone] Name: EMY COBOS Address: [address] [phone]
--- OUTSIDE RECORDS SUMMARY | 2023-10-04 01:03 | XMS_ITS | Continuity of Care Document ---
Author Organization [facility] or [facility] Address [address] [place] [address] Care Team Providers Care Imagery Analyst Name Role Phone Karissarosalie Dina Kinza Primary Care Physician [phone] Encounter [facility] [id number] Date(s): 03/16/23 - 03/16/23 [facility] [address] [place] [address] Encounter Diagnosis Insomnia(Discharge Diagnosis) - 03/16/23 Narcolepsy with cataplexy(Discharge Diagnosis) - 03/16/23 Discharge Disposition: Home or Self Care Attending Physician: Sindhu Jacobs GEOSPATIAL TECHNICIAN Allergies, Adverse Reactions, Alerts Substance Reaction Severity Status SOY Unknown Active WHEAT Unknown Active SHELLFISH DERIVED Anaphylactic reaction Severe A ctive TREE AND SHRUB POLLEN 1 Unknown Acti ve codeine Unknown Active amitriptyline Unknown Active imipramine Unknown Unknown Active morphine Unknown Active oxyCODONE Unknown Active HYDROcodone Unknown Unknown Active ARIPiprazole Unknown Active Tree Nuts Unknown Unknown Active Peanuts Unknown Active metoprolol 2 Depression Unknown Active acetaminophen-hydrocodone Unknown Unknown Ac tive acetaminophen-oxycodone Unknown Unknown Acti ve modafinil 3 runny nose Difficulty swallowing Other Unknown Active armodafinil 4 Other Unknown Active Roxicet Unknown Unknown Active Provigil Unknown Unknown Active Latex 5 no reaction Unknown Active dilTIAZem Depression Chest pain Moderate Active DilTIAZem (Eqv-Cardizem CD) Unknown Unknown Active rimegepant Eruption Severe Active 1per AllScripts 2depression 3Excessive runny nose and hard to swallow. 4Excessive runny nose and hard to swallow. 5immunotherapy Assessment and Plan Future Appointments Immunizations Given and Recorded Vaccine Date Status Refusal Reason influenza virus vaccine, inactivated 1 10/31/23 Re corded influenza virus vaccine, inactivated 12/22/21 [...] tetanus immune globulin 06/05/07 Recorded 1Result Comment: beztaida 2Result Comment: betzaida [employer] 3Result Comment: Mirror Silverer: GlaxoSmithKline 4Result Comment: Mirror Silverer: Sanofi Pasteur Medications acetaminophen 325 mg oral tablet 650 mg = 2 tab, Oral, every 4 hr, PRN other (see comment), as needed, 0 Refill(s) Start Date: 07/08/21 Status: Ordered albuterol 90 mcg/inh aerosol inhaler 2 puffs, Inhale, every 6 hr, PRN as needed for wheezing, # 8 g, 0 Refill(s), Pharmacy: [id number], 165, cm, 01/04/23 10:12:00 EST, Height, 66.65, kg, 01/30/23 13:31:00 EST, Weight Dosing Start Date: 01/30/23 Status: Ordered atorvastatin 20 mg oral tablet 1 tab, Oral, every morning, # 90 tab, 3 Refill(s), Pharmacy: [id number], 165, cm, 02/12/23 [...] hours, # 30 cap, 0 Refill(s), Pharmacy: [id number], 165, cm, 01/04/23 10:12:00 EST, Height, 66.65, kg,01/30/23 13:31:00 EST, Weight Dosing Start Date: 01/31/23 Status: Ordered doxepin 3 mg oral tablet See Instructions, take 1 to 2 tab Oral every day at bedtime, # 30 tab, 1 Refill(s), Pharmacy: [id number], 165, cm, 01/04/23 10:12:00 EST, [...] tablet 25 mg = 1 tab, Oral, QID, PRN cough, # 80 tab, 0 Refill(s), 02/13/24 1:44:00 PM [employer]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, Pharmacy: [id number], 165, cm, 02/12/23 14:42:00 EST, Height, 67.75, kg, 02/07/23 10:12:00 EST, Weight Dosing Start Date: 02/12/23 Stop Date: 02/13/24 Status: Ordered ipratropium-albuterol 0.5 mg-2.5 mg/3 mL inhalation solution 3 mL, Nebulized Inhalation, QID, PRN dyspnea, # 30 EA, 1 Refill(s), Pharmacy: [id number], 165, cm, 01/04/23 10:12:00 EST, [...] stop, # 45 tab, 0 Refill(s), Pharmacy: [id number], 165, cm, 01/04/23 10:12:00 EST, Height, 67.75, kg, 02/07/23 10:12:00 EST, Weight Dosing Start Date: 02/07/23 Status: Ordered prochlorperazine 10 mg oral tablet 10 mg = 1 tab, Oral, every 8 hr, PRN other (see comment), as needed per [facility] Start Date: 07/08/21 Status: Ordered traZODone 100 mg oral tablet See Instructions, TAKE 1 TABLET BY MOUTH ONCE DAILY AT BEDTIME, # 90 tab, 3 Refill(s), Pharmacy: [id number], 165, cm, 04/12/22 13:34:00 EST, Height/Length Dosing, 59.87, kg, 04/12/22 13:34:00 EST, Weight Dosing Start Date: 11/09/22 Status: Ordered traZODone 50 mg oral tablet 50 mg = 1 tab, Oral, every night at bedtime, PRN as needed for sleep, # 30 tab, 2 Refill(s), Pharmacy: [id number], 165, cm, 01/04/23 10:12:00 EST, Height, 68.08, kg, 01/13/23 13:29:00 EST,Weight Dosing Start Date: 01/13/23 Stop Date: 2/15/24 Status: Ordered Ubrelvy 100 mg oral tablet See Instructions, TAKE 1 TABLET BY MOUTH NEEDED (TAKE AT ONSET OF MIGRAIN, CAN REPEAT DOSE IN 2 HOURS, MAX DOSE OF 200 MG) Start Date: 08/26/21 Status: Ordered Wellbutrin SR 150 mg/12 hours oral tablet, extended release 150 mg = 1 tab, Oral, Daily, # 30 tab, 1 Refill(s), Pharmacy: [id number], 165, cm, 03/16/23 15:48:00 EST, Height, 67.75, kg, 02/07/23 10:12:00 EST, Weight Dosing Start Date: 03/16/23 Status: Ordered Problem List Condition Confirmation Course [...] meds as of . Lamictal 100mg BID. [place] ER 450mg 1 1/2 tabs qhs. cymbalta 60mg. Zalephon for sleep. Has seen Dr. Singer at 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 We discussed trial of naltrexone for her chronic pain. Naltrexone 1-4.5 mg qd. Would need to send rx to compounding pharmacy in [place]. Reviewed MOA, side effects. She would also like to get involved in resistance band training. >50% of this 40 minute appointment was spent in face to face counseling. [facility] visit: S/P LT partial thyroidectomy. TSH annually. She is not on thyroid replacement. 7From 11-03-2020 visit: Has been on atorvastatin 20 mg qd since 10/2019. She is tolerating well. Repeat FLP and CMP. 8suspect to be due to narcolepsy with cataplexy 9[facility] consultation 01/07/21 with [...] back position sleep From 05-19-2020 visit: 07/31/18: [facility] records not available at time of consult, [...] qualify for fin assistance at [facility] due to just being . Requested [facility] records to review. Order Home Sleep Study, [...] Range]: 1 Peripheral Pulse Rate [60-100 bpm] 85 bp m (03/16/23 3:48 PM) Blood Pressure [90-140/60-90 mmHg] 98/57 mmHg (03/16/23 3:48 PM) Mean Arterial Pressure, Cuff [70-110 mmH g] 71 mmHg (03/16/23 3:48 PM) Height 165 cm (03/16/23 3:48 PM) Height/Length Measured (inches) 64.96 in ch (03/16/23 3:48 PM) Social History Social History Type Response Smoking Status Smoking tobacco use: Never tobacco user;Never 1 entered on: 08/16/22 Sex Female 1How much tobacco do you chew: none What was the date of your most recent tobacco screenin05-25-2021 Physician Outpatient Note * Sindhu Jacobs GEOSPATIAL TECHNICIAN: PERFORM Event Display: Office Clinic Note Physician Authored Date: [id number] CODY COBOS :1970 Age:52 years Sex:Female Visit Date:03/16/2023 Primary Care Physician: Dina Diaz Chief Complaint insomnia med follow up History of Present Illness 52 years??female??here for med follow up ?? TODAY: Doxepin did not help her sleep at night, even up to 6mg. She states she cannot take modafinil because it gives her trouble swallowing. ?? She was sick around the beginning of January and was taking hydroxyzine which was helping her fall asleep for a little while. Review of Systems A 10-point REVIEW OF SYSTEM was obtained and reviewed, includes CONSTITUTIONAL, EYES, NOSE, THROAT,RESPIRATORY, HEART, GASTROINTESTINAL, UROLOGIC, MUSCULOSKELETAL, PSYCHIATRY, SKIN systems. Pertinent symptoms are discussed in history, otherwise negative. Physical Exam Vitals & Measurements HR:??85??(Peripheral)?? BP:??98/57?? SpO2:??98%?? HT:??165??cm?? General:??well appearing, appearing stated age, no acute distress,??normal??build HEENT: atraumatic skull, anicteric RESPIRATORY: quiet respiration, able to speak in full sentences without dyspnea, no accessory muscle use SKIN: no facial skin rash, no facial skin lesions PSYCHIATRIC: well groomed, fluent speech, good insight, linear thought process, good eye contact,balanced??affect NEUROLOGIC: alert, oriented, symmetric facial expression Clinic Assessment/Plan 1.??Insomnia??G47.00 Cody Cobos is a pleasant 52 year old female here for insomnia and narcolepsy med follow up. She trialed doxepin as I previously prescribed but she found it to be completely ineffective even up to 6mg. We discussed how untreated narcolepsy may be contributing to her insomnia. We reviewed her prior med history and reactions. She has had a poor reaction or found every medication she has tried to be ineffective. We discussed trialing Wellbutrin which she has previously been on for anxiety, but she recalls that it did not have any impact on her daytime energy. She is willing to??retry it. ?? Patient states that she was sick over the holiday season and started taking Hydroxyzine 25mg which was helping her fall asleep, but does not help her stay asleep, has been losing efficacy. Perhaps a combo med regimen may be beneficial for her which she is open to trying. We will trial re-starting Wellbutrin SR 150mg during the day and Hydroxyzine 25mg at night. ?? In terms of sleep hygiene, she tries to keep a consistent bedtime at 9PM and get up at 6-6:30 everymorning to take her dog out. Recommend she try to push her bedtime out a bit later until around 10PM to help increase her sleep drive. She is struggling with chronic pain as well which impacts her energy and ability to sleep, taking Tylenol and ibuprofen, then uses Baclofen PRN for flares. She has found Baclofen makes her sleepy but she still wakes up at some point in the night. ?? Plan for follow up via Zoom (pt preference) in 1 month to see how she is doing on this med regimen. ? 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 ? I provided greater than??30??minutes in the care of this patient, more than half the time was spentin [id number] counseling. ?with comorbidities of narcolepsy/cataplexy,Fibromyalgia, hypothyroidism, borderline personality disorder, bipolar disorder, degeneration of lumbar intervertebral discs, arthritis, migraine headaches, PTSD, history of vitamin D deficiency ? Clinical Data Reviewed: Nordheim Sleepiness Scale: ? Sleep Clinical Timeline:? 11/05/2019.?? [...] vyvanse 10 mg Qam; ESS always elevated 10-12/20; insomnia trying xywav as??insomnia symptoms may be [...] 6mg was not effective for her sleep. ? meds tried: lunesta changed her mood (made [...] down her kidneys), mirtazipine 15mg - ineffective ?? Today's Assessment and Plan: See above ?? Follow up: 1 month or sooner if needed. ?? Remote Scribed by Wellington Dean Problem List/Past Medical History Ongoing Abnormal cervical [...] Medications What How Much When Why Instructions New buPROPion (Wellbutrin SR 150 mg/ 12 hours oral tablet, extended release) 1 tab Oral (given by mouth) Every day Insomnia Narcolepsy with cataplexy Refills: 1 Pickup at [id number] Unchanged acetaminophen (acetaminophen 325 mg oral tablet) [...] for cough every 8 hours ?? Unchanged doxepin (doxepin 3 mg oral tablet) [...] as needed ?? Unchanged hydrOXYzine (hydrOXYzine hydrochloride 25 mg oral tablet) 1 tab Oral (given by mouth) 4 times a day as needed for cough Cough Unchanged hydrOXYzine (hydrOXYzine hydrochloride 25 mg oral tablet) Oral (given by mouth) 1 Unknown, 1 Refill(s), Take 1 tablet by mouth as needed. ?? Unchanged ipratropium-albuterol (ipratropium-albuterol 0.5 mg-2.5 mg/ [...] for other (see comment) as needed per [facility] headache clinic ?? Unchanged rimegepant (Nurtec ODT [...] MAX DOSE OF200 MG) ?? Pharmacy Information [facility]: [address] [id number] [phone] Allergies SHELLFISH DERIVED??(Anaphylactic reaction) rimegepant??(Eruption) dilTIAZem??(Depression, Chest pain) ARIPiprazole DilTIAZem (Eqv-Cardizem CD)??(Unknown) HYDROcodone??(Unknown) Latex??(no reaction) Peanuts Provigil??(Unknown) Roxicet??(Unknown) SOY TREE AND SHRUB POLLEN Tree Nuts??(Unknown) WHEAT acetaminophen-hydrocodone??(Unknown) acetaminophen-oxycodone??(Unknown) amitriptyline armodafinil??(Other) codeine imipramine??(Unknown) metoprolol??(Depression) modafinil??(runny nose, Difficulty swallowing, Other) morphine oxyCODONE Social History Alcohol Past- Comments: None Rarely Electronic Cigarette/Vaping Electronic Cigarette Use: Never. 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 Home/Environment Lives with Spouse. Nutrition/Health Diet: Regular. [...] virus vaccine, inactivated 12/27/2022 Recorded Comments : [facility] zoster vaccine, inactivated 06/12/2022 Recorded Comments : [facility] [employer] [employer] influenza virus vaccine, inactivated 12/22/2021 Given influenza virus vaccine, live 11/10/2020 Recorded SARS-CoV-2 (COVID-19) mRNA-1273 vaccine 07/21/2020 Recorded SARS-CoV-2 (COVID-19) mRNA-1273 vaccine 06/21/2020 Recorded influenza virus vaccine, live 05/01/2018 Recorded measles/mumps/rubella virus vaccine 04/01/2014 Recorded influenza, unspecified formulation 04/01/2014 Recorded tetanus/diphth/pertuss (Tdap) adult/adol 05/24/2013 Recorded influenza, unspecified formulation 12/31/2010 Recorded Comments : Mirror Silverer: GlaxoSmithKline Td(adult) unspecified formulation 04/27/2010 Recorded Td(adult) unspecified formulation 04/27/2010 Recorded influenza, unspecified formulation 01/18/2010 Recorded Comments : Mirror Silverer: Sanofi Pasteur tetanus immune globulin 06/05/2007 Recorded Electronically Signed on 03/16/23 04:20 PM Kye [facility] GEOSPATIAL TECHNIC[facility] Electronically Signed on 03/16/23 04:18 PM Wellington Dean Patient Care team information Care Team Personnel Name: Dina Diaz Position: Physician Member Role: Informed Provider Address: Address: [facility] [address] [address]- Care Team Related Persons Name: GOLDIEEMY CAMPBELL Address: Home [address], [place] [phone]
--- OUTSIDE RECORDS SUMMARY | 2023-10-04 01:03 | XMS_ITS | Continuity of Care Document ---
Author Organization [facility] Address [address] [place] [address] Care Team Providers Care Shampooer Name Role Phone Karissabairon Dina C Primary Care Physician Encounter [facility] Date(s): 08/05/22 - 08/05/22 [facility] [address] [place] [address] Discharge Disposition: Home or Self Care Attending Physician: Hardy Gregorio MD Admitting Physician: Haryd Gregorio MD Referring Physician: Hardy Gregorio MD Allergies, Adverse Reactions, Alerts Substance Reaction [...] MG Mammo Diagnostic Bilateral w/ Gil 05/26/22 Immunizations Given and Recorded Vaccine Date Status [...] immune globulin 06/05/07 Recorded 1Result Comment: betzaida [facility] 2Result Comment: Efficiency Miner: Eyenalyze 3Result Comment: Efficiency Miner: SanAppBrick Pasteur Medications acetaminophen 325 mg oral tablet [...] # 90 EA, 3 Refill(s), Pharmacy: [facility], 165, cm,08/14/21 10:33:00 EDT, [...] 30 tab, 0 Refill(s), Pharmacy: [facility], 165, cm, 03/28/22 10:18:00 [...] 30 tab, 0 Refill(s), Pharmacy: [facility], 165, cm, 03/28/22 10:18:00 EST, Height/Length Dosing, 62, kg, 03/28/22 10:18:00 EST, Weight Dosing Start Date: 03/28/22 Status: Ordered ivabradine 5 mg oral tablet 2.5 mg = 0.5 tab, Oral, BID w/Meals, take a half tab (2.5mg) twice daily to equal 5mg, # 60 tab, 4 Refill(s), Pharmacy: [facility], 165, cm, 04/12/22 13:34:00 EST, Height/Length Dosing, 59.87, kg, 04/12/22 13:34:00 EST, Weight Dosing Start Date: 06/14/22 Status: Ordered pregabalin 25 mg oral capsule 25 mg = 1 cap, Oral, BID, # 56 cap, 5 Refill(s), Pharmacy: [facility], 165, cm, 04/12/2312:34:00 EST, Height/Length Dosing, 59.87, kg, 04/12/22 13:34:00 EST, Weight Dosing Start Date: 06/07/22 Stop Date: 11/22/22 Status: Ordered prochlorperazine 10 mg oral tablet 10 mg = 1 tab, Oral, every 8 hr, PRN other (see comment), as needed per [facility] headache clinic Start Date: 07/08/21 Status: Ordered traZODone 100 mg oral tablet See Instructions, TAKE 1 TABLET BY MOUTH ONCE DAILY AT BEDTIME, # 90 tab, 0 Refill(s), Pharmacy: [facility], 165, cm, 04/12/22 13:34:00 [...] food, # 30 tab, 2 Refill(s), Pharmacy: [facility], 165, cm, 04/12/22 13:34:00 EST, Height/Length Dosing, 59.87, kg, 04/12/22 13:34:00 EST, Weight Dosing Start Date: 07/18/22 Stop Date: 10/16/22 Status: Ordered vilazodone 20 mg oral tablet 20 mg = 1 tab, Oral, Daily, # 30 tab, 2 Refill(s), Pharmacy: [id number], 165, cm, 04/12/22 13:34:00 EST, Height/Length Dosing, 59.87, kg, 04/12/22 13:34:00 EST, Weight Dosing Start Date: 07/18/22 Stop Date: 10/16/22 Status: Ordered Problem List Condition Confirmation Course [...] meds as of . Lamictal 100mg BID. [place] ER 450mg 1 1/2 tabs qhs. cymbalta 60mg. Zalephon for sleep. Has seen Dr. Singer at [facility]. 3From 06-12-2020 visit: 12/03/19: New [...] sleep studies. see narcolepsy section [facility]: Medications trialed and unable to tolerate TCAs, duloxetine, gabapentin, lyrica, cyclobenzaprine. She has seen rheumatology . 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. We discussed trial of naltrexone for her chronic pain. Naltrexone 1-4.5 mg qd. Would need to send rx to compounding pharmacy in [place]. Reviewed MOA, side effects. She would also like to get involved in resistance band training. >50% of this 40 minute appointment was spent in face to face counseling. 6[facility] 12-14-2020 visit: S/P LT partial thyroidectomy. TSH annually. She is not on thyroid replacement. 7[facility] 11-03-2020 visit: Has been on atorvastatin 20 mg qd since 10/2019. She is tolerating well. Repeat FLP and CMP. 8suspect to be due to narcolepsy with cataplexy 9[facility] consultation 01/07/21 with additional imaging, BI-RADS: 3, [...] back position sleep From 05-19-2020 visit: 07/31/18: [facility] records not available at time [...] will qualify for fin assistance at [facility] due to just being . Requested [facility] records to review. Order Home [...] Physician Member Role: Informed Provider Address: Address: [facility] [address] [address]- [place] Care Team Related Persons Name: EMY COBOS Address: Home Name: EMY COBOS Address: Home [address] [place] [phone] Name: AMARIS DE LA FUENTE Address: Home
--- OUTSIDE RECORDS SUMMARY | 2023-10-04 01:03 | XMS_ITS | Continuity of Care Document ---
Author Organization [facility] Address [address] [place] [address] Care Team Providers Care Fur Blender Name Role Phone Dina Diaz Primary Care Physician Encounter COUNT INCLUDES [facility] [id number] Date(s): 02/07/23 - 02/07/23 [facility] [address] [place] [address] Discharge Disposition: Home or Self Care Attending [...] imipramine Unknown Unknown Active morphine Unknown Active modafinil 3 runny nose Difficulty swallowing Other Unknown Active armodafinil 4 Other Unknown Active oxyCODONE Unknown Active HYDROcodone Unknown Unknown Active ARIPiprazole Unknown Active Tree Nuts Unknown Unknown Active Peanuts Unknown Active acetaminophen-hydrocodone Unknown Unknown Ac tive acetaminophen-oxycodone Unknown Unknown Acti ve Roxicet Unknown [...] 2Result Comment: betzaida [employer] 3Result Comment: Seat Covers Trimmer: [employer] 4Result Comment: Seat Covers Trimmer: Sanofi Pasteur Medications acetaminophen 325 mg oral tablet 650 mg = 2 tab, Oral, every 4 hr, PRN other (see comment), as needed, 0 Refill(s) Start Date: 07/08/21 Status: Ordered albuterol 90 mcg/inh aerosol inhaler 2 puffs, Inhale, every 6 hr, PRN as needed for wheezing, # 8 g, 0 Refill(s), Pharmacy: [id number], 165, cm, 01/04/23 10:12:00 EST, Height, 66.65, kg, 01/30/23 13:31:00 EST, Weight Dosing Start Date: 01/30/23 Status: Ordered atorvastatin 20 mg oral tablet 1 tab, Oral, every morning, # 90 tab, 0 Refill(s), Pharmacy: [id number], 165, cm, 04/12/22 13:34:00 [...] hours, # 30 cap, 0 Refill(s), Pharmacy: [id number], 165, cm, 01/04/23 10:12:00 EST, Height, 66.65, kg,01/30/23 13:31:00 EST, Weight Dosing Start Date: 01/31/23 Status: Ordered doxepin 3 mg oral tablet See Instructions, take 1 to 2 tab Oral every day at bedtime, # 30 tab, 1 Refill(s), Pharmacy: [facility]156, 165, cm, 01/04/23 10:12:00 EST, Height, [...] dyspnea, # 30 EA, 1 Refill(s), Pharmacy: [facility], 165, cm, 01/04/23 10:12:00 [...] stop, # 45 tab, 0 Refill(s), Pharmacy: [facility], 165, cm, 01/04/23 10:12:00 EST, Height, 67.75, kg, 02/07/23 10:12:00 EST, Weight Dosing Start Date: 02/07/23 Status: Ordered prochlorperazine 10 mg oral tablet 10 mg = 1 tab, Oral, every 8 hr, PRN other (see comment), as needed per [facility] headache clinic Start Date: 07/08/21 Status: Ordered traZODone 100 mg oral tablet See Instructions, TAKE 1 TABLET BY MOUTH ONCE DAILY AT BEDTIME, # 90 tab, 3 Refill(s), Pharmacy: [id number], 165, cm, 04/12/22 13:34:00 EST, Height/Length Dosing, 59.87, kg, 04/12/22 13:34:00 EST, Weight Dosing Start Date: 11/09/22 Status: Ordered traZODone 50 mg oral tablet 50 mg = 1 tab, Oral, every night at bedtime, PRN as needed for sleep, # 30 tab, 2 Refill(s), Pharmacy: [id number], 165, cm, 01/04/23 10:12:00 [...] meds as of . Lamictal 100mg BID. [place] ER 450mg 1 1/2 tabs qhs. cymbalta 60mg. Zalephon for sleep. Has seen Dr. Singer at [facility]. 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 [facility] [employer]. We discussed trial of naltrexone for her chronic pain. Naltrexone 1-4.5 mg qd. Would need to send rx to compounding pharmacy in [place]. Reviewed MOA, side effects. She would also [...] to be due to narcolepsy with cataplexy [facility] consultation 01/07/21 with additional imaging, BI-RADS: 3, [...] back position sleep From 05-19-2020 visit: 07/31/18: [facility] records not available at time of consult, [...] she will qualify for fin assistance at [facility] due to just being . Requested [facility] records to review. Order Home Sleep Study, [...] repair 09/2009 Results Laboratory List Name Date SARS-CoV-2 (COVID-19)/Flu/RSV (GeneXpert ) (COVID-19/Flu/RSV (GeneXpert)) 02/07/23 Most recent to oldest [Reference Range]: 1 SARS-CoV-2(Covid19)PCR(GXpert COVFLURSV) [Negative] Negative (02/07/23 9:47 AM) Flu A (GXpert COVFLURSV) [Negative] Nega tive (02/07/23 9:47 AM) RSV (GXpert COVFLURSV) [Negative] Negati ve (02/07/23 9:47 AM) Flu B (GXpert COVFLURSV) [Negative] Nega tive (02/07/23 9:47 AM) Social History Social History Type Response Smoking Status Smoking tobacco use: Never tobacco user;Never 1 entered on: 08/16/22 Sex Female 1How much tobacco do you chew: none What was the date of your most recent tobacco screenin05-25-2021 Patient Care team information Care Team Personnel Name: Dina Diaz Position: Physician Member Role: Informed Provider Address: Address: [facility] [address] [address] Care Team Related Persons Name: EMY COBOS Address: Home [address] [place] [phone]
--- OUTSIDE RECORDS SUMMARY | 2023-10-04 01:03 | XMS_ITS | Continuity of Care Document ---
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: [employer] Medications !-Compazine 0 Refill(s) Start Date: 04/06/22 [...] tab, 0 Refill(s), Pharmacy: [facility], 165, cm, 03/28/22 10:18:00 EST, Height/Length Dosing, 62, kg, 03/28/22 10:18:00 EST, Weight Dosing Start Date: 03/28/22 Status: Ordered Lyrica 150 mg oral capsule 150 mg = 1 cap, Oral, BID, # 56 cap, 0 Refill(s), Pharmacy: [facility], 165, cm, 04/12/22 13:34:00 EST, Height/Length Dosing, 59.87, kg, 04/12/22 13:34:00 EST, Weight Dosing Start Date: 04/13/22 Status: Ordered prochlorperazine 10 mg oral tablet 10 mg = 1 tab, Oral, every 8 hr, PRN other (see comment), as needed per [facility] headache clinic Start Date: 07/08/21 Status: Ordered traMADol 50 mg oral tablet 50 mg = 1 tab, Oral, every 6 hr, PRN as needed for pain, # 28 tab, 0 Refill(s), Pharmacy: [facility]156, 165, cm, 04/12/22 13:34:00 EST, Height/Length Dosing, 59.87, kg, 04/12/22 13:34:00 EST, Weight Dosing Start Date: 04/13/22 Stop Date: 04/20/22 Status: Ordered traZODone 100 mg oral tablet [...] food, # 30 tab, 2 Refill(s), Pharmacy: [facility]156, 165, cm, 04/12/22 13:34:00 EST, Height/Length Dosing, 59.87, kg, 04/12/22 13:34:00 EST, Weight Dosing Start Date: 04/19/22 Stop Date: 07/18/22 Status: Ordered vilazodone 20 mg oral tablet 20 mg = 1 tab, Oral, Daily, # 30 tab, 2 Refill(s), Pharmacy: [facility], 165, cm, 04/12/22 13:34:00 EST, Height/Length Dosing, 59.87, kg, 04/12/22 13:34:00 EST, Weight Dosing Start Date: 04/19/22 Stop Date: 07/18/22 Status: Ordered ZyrTEC Liquid Gels 10 mg [...] meds as of . Lamictal 100mg BID. [place] ER 450mg 1 1/2 tabs qhs. cymbalta 60mg. Zalephon for sleep. Has seen Dr. Singer at [facility]. 3From 06-12-2020 visit: 12/03/19: New diagnosis of [...] not like how she felt on it [facility] 05-19-2020 visit: timeline: ESS always very [...] prior to sleep studies. see narcolepsy section [facility] 12-14-2020 visit: Medications trialed and unable to tolerate TCAs, duloxetine, gabapentin, lyrica, cyclobenzaprine. She has seen rheumatology . She cannot proceed with comprehensive pain program as she works part time at [employer]. We discussed trial of naltrexone for her chronic pain. Naltrexone 1-4.5 mg qd. Would need to send rx to compounding pharmacy in [place]. Reviewed MOA, side effects. She would also like to get involved in resistance band training. >50% of this 40 minute appointment was spent in face to face counseling. 6[facility] 12-14-2020 visit: S/P LT partial thyroidectomy. TSH annually. She is not on thyroid replacement. 7[facility] 11-03-2020 visit: Has been on atorvastatin 20 mg qd since 10/2019. She is tolerating well. Repeat FLP and CMP. 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 Requested [facility] records to review. Order Home Sleep Study, [...] Procedure Date Related Diagnosis Body Site Status Hemilaminectomy 1 04/13/22 Complet ed Removal or revision of sling for stress incontinence (eg, fascia or synthetic) 03/15/22 Completed Colonoscopy 2 06/10/20 Completed Egd/endoscopy 3 06/10/20 Completed Tlh w/t/o 250 g or less 4 04/30/20 Completed Repair of stress incontinenc e by suprapubic sling 09/27/15 Completed Subtotal thyroidectomy 01/26/14 Co mpleted Partial mastectomy 11/26/09 Comple maame Orthopedic surgery 09/2009 Comp leted Rhinoseptoplasty 02/26/06 Complete d [...] Physician Member Role: Informed Provider Address: Address: Counts Include [address] At [facility] [id number] [place] [address] Care Team Related Persons Name: CHANDRIKAEMY Address: Home [address] [place] [phone] Name: AMARIS DE LA FUENTE Address: Home
--- OUTSIDE RECORDS SUMMARY | 2023-10-04 01:03 | XMS_ITS | Continuity of Care Document ---
Author Organization [facility] Address [address] [place] [address] Care Team Providers Care Postal Worker Name Role Phone Dina Diaz Primary Care Physician [phone] [facility]22 - 06/23/22 [facility] [address] [place] [address] Encounter Diagnosis Chest pain(Discharge Diagnosis) - 06/23/22 Discharge Disposition: Home Allergies, Adverse Reactions, Alerts [...] MG Mammo Diagnostic Bilateral w/ Gil 05/26/22 * NM Myocardial SPECT Drug Stress Multi 06/23/22 Immunizations Given and Recorded Vaccine Date Status [...] 1Result Comment: betzaida Marielle [employer] 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: [employer] 3Result Comment: Personal Injury Litigation Paralegal: Sanofi Pasteur Medications acetaminophen 325 mg oral [...] morning, # 90 EA, 3 Refill(s), Pharmacy: [facility], 165, cm,08/14/21 10:33:00 EDT, [...] spasm, # 30 tab, 0 Refill(s), Pharmacy: [facility], 165, cm, 03/28/22 10:18:00 [...] hr, # 30 tab, 0 Refill(s), Pharmacy: [facility], 165, cm, 03/28/22 10:18:00 EST, Height/Length Dosing, 62, kg, 03/28/22 10:18:00 EST, Weight Dosing Start Date: 03/28/22 Status: Ordered ivabradine 5 mg oral tablet 2.5 mg = 0.5 tab, Oral, BID w/Meals, take a half tab (2.5mg) twice daily to equal 5mg, # 60 tab, 4 Refill(s), Pharmacy: [facility]156, 165, cm, 04/12/22 13:34:00 EST, Height/Length Dosing, 59.87, kg, 04/12/22 13:34:00 EST, Weight Dosing Start Date: 06/14/22 Status: Ordered pregabalin 25 mg oral capsule 25 mg = 1 cap, Oral, BID, # 56 cap, 5 Refill(s), Pharmacy: [facility]156, 165, cm, 04/12/2312:34:00 EST, Height/Length Dosing, 59.87, kg, 04/12/22 13:34:00 EST, Weight Dosing Start Date: 06/07/22 Stop Date: 11/22/22 Status: Ordered prochlorperazine 10 mg oral tablet 10 mg = 1 tab, Oral, every 8 hr, PRN other (see comment), as needed per [facility] Start Date: 07/08/21 Status: Ordered [...] food, # 30 tab, 2 Refill(s), Pharmacy: [facility], 165, cm, 04/12/22 13:34:00 EST, Height/Length Dosing, 59.87, kg, 04/12/22 13:34:00 EST, Weight Dosing Start Date: 04/19/22 Stop Date: 07/18/22 Status: Ordered vilazodone 20 mg oral tablet 20 mg = 1 tab, Oral, Daily, # 30 tab, 2 Refill(s), Pharmacy: [facility], 165, cm, 04/12/22 13:34:00 [...] meds as of . Lamictal 100mg BID. [place] ER 450mg 1 /2 tabs qhs. cymbalta 60mg. Zalephon for sleep. Has seen Dr. Singer at [facility]. 3From 06-12-2020 visit: 12/03/19: New diagnosis [...] prior to sleep studies. see narcolepsy section [facility] 12[facility] visit: Medications trialed and unable to tolerate TCAs, duloxetine, gabapentin, lyrica, cyclobenzaprine. She has seen rheumatology . 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 We discussed trial of naltrexone for her chronic pain. Naltrexone 1-4.5 mg qd. Would need to send rx to compounding pharmacy in [place]. Reviewed MOA, side effects. She would also like to get involved in resistance band training. >50% of this 40 minute appointment was spent in face to face counseling. 6[facility] 12-14-2020 visit: S/P LT partial thyroidectomy. TSH annually. She is not on thyroid replacement. 7[facility] 11-03-2020 visit: Has been on atorvastatin 20 mg qd since 10/2019. She is tolerating well. Repeat FLP and CMP. 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 Requested [facility] records to review. Order Home Sleep Study, [...] Role: Informed Provider Address: Address: [facility] [id number] [place] [address] Care Team Related Persons Name: EMY COBOS Address: Home [address] [place] [phone] Name: AMARIS DE LA FUENTE Address: Home
--- OUTSIDE RECORDS SUMMARY | 2023-10-04 01:03 | XMS_ITS | Continuity of Care Document ---
Author Organization [facility] Address [address] [place] [address] Care Team Providers Care Manager Nicu Name Role Phone Karissabairon Dina Kinza Primary Care Physician [facility] 08/02/22 - 08/02/22 [facility] [address] [place] [address] Encounter Diagnosis Chest pain(Discharge Diagnosis) - 08/02/22 Discharge Disposition: Home or Self Care Attending Physician: Larry Feldman MD Admitting Physician: Larry Feldman MD Referring Physician: Larry Feldman MD Allergies, Adverse Reactions, [...] immune globulin 06/05/07 Recorded 1Result Comment: betzaida [facility] 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[employer] 3Result Comment: Nonfarm Animal Caretaker: Sanofi Pasteur Medications acetaminophen 325 mg oral [...] morning, # 90 EA, 3 Refill(s), Pharmacy: [facility], 165, cm,08/14/21 10:33:00 EDT, [...] spasm, # 30 tab, 0 Refill(s), Pharmacy: [facility], 165, cm, 03/28/22 10:18:00 [...] hr, # 30 tab, 0 Refill(s), Pharmacy: [facility], 165, cm, 03/28/22 10:18:00 EST, Height/Length Dosing, 62, kg, 03/28/22 10:18:00 EST, Weight Dosing Start Date: 03/28/22 Status: Ordered ivabradine 5 mg oral tablet 2.5 mg = 0.5 tab, Oral, BID w/Meals, take a half tab (2.5mg) twice daily to equal 5mg, # 60 tab, 4 Refill(s), Pharmacy: [facility], 165, cm, 04/12/22 13:34:00 EST, Height/Length Dosing, 59.87, kg, 04/12/22 13:34:00 EST, Weight Dosing Start Date: 06/14/22 Status: Ordered pregabalin 25 mg oral capsule 25 mg = 1 cap, Oral, BID, # 56 cap, 5 Refill(s), Pharmacy: [facility], 165, cm, 04/12/2312:34:00 EST, Height/Length Dosing, 59.87, kg, 04/12/22 13:34:00 EST, Weight Dosing Start Date: 06/07/22 Stop Date: 11/22/22 Status: Ordered prochlorperazine 10 mg oral tablet 10 mg = 1 tab, Oral, every 8 hr, PRN other (see comment), as needed per [facility] Start Date: 07/08/21 Status: Ordered traZODone 100 mg oral tablet See Instructions, TAKE 1 TABLET BY MOUTH ONCE DAILY AT BEDTIME, # 90 tab, 0 Refill(s), Pharmacy: [facility], 165, cm, 04/12/22 13:34:00 [...] food, # 30 tab, 2 Refill(s), Pharmacy: [facility], 165, cm, 04/12/22 13:34:00 EST, Height/Length Dosing, 59.87, kg, 04/12/22 13:34:00 EST, Weight Dosing Start Date: 07/18/22 Stop Date: 10/16/22 Status: Ordered vilazodone 20 mg oral tablet 20 mg = 1 tab, Oral, Daily, # 30 tab, 2 Refill(s), Pharmacy: [facility], 165, cm, 04/12/22 13:34:00 [...] meds as of . Lamictal 100mg BID. [place] ER 450mg 1 1/2 tabs qhs. cymbalta 60mg. Zalephon for sleep. Has seen Dr. Singer at [facility]. 3From 06-12-2020 visit: 12/03/19: New diagnosis [...] many years ago - effective but d/c /2 severe rhinorrhea to point of throat closing [...] prior to sleep studies. see narcolepsy section [facility] 12-14-2020 visit: Medications trialed and unable to tolerate TCAs, duloxetine, gabapentin, lyrica, cyclobenzaprine. She has seen rheumatology . 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 We discussed trial of naltrexone for her chronic pain. Naltrexone 1-4.5 mg qd. Would need to send rx to compounding pharmacy in [place]. Reviewed MOA, side effects. She would also [...] to be due to narcolepsy with cataplexy [facility] consultation 01/07/21 with additional imaging, BI-RADS: 3, [...] sleep From 05-19-2020 visit: 07/31/18: [facility] [place] [...] HOSPITAL due to just being . Requested [facility] records [...] Role: Informed Provider Address: Address: [facility] [address] [address]- Care Team Related Persons Name: EMY COBOS Address: Home Name: EMY COBOS Address: Home [address] [place] [address], [phone] Name: AMARIS DE LA FUENTE Address: Home
--- OUTSIDE RECORDS SUMMARY | 2023-10-04 01:03 | XMS_ITS | Continuity of Care Document ---
Author Organization [facility] Address [address] [place] [address] Care Team Providers Care Assistant Family Teacher Name Role Phone Dina Diaz Primary Care Physician Encounter [facility] [id number] Date(s): 09/04/23 - 09/04/23 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: [employer] 4Result Comment: Storage Facility Housekeeper: San[employer]i [employer]ur Medications acetaminophen 325 mg oral tablet 650 mg = 2 tab, Oral, every 4 hr, PRN other (see comment), as needed, 0 Refill(s) Start Date: 07/08/21 Status: Ordered atorvastatin 20 mg oral tablet 1 tab, Oral, every morning, # 90 tab, 3 Refill(s), Pharmacy: [facility], 165, cm, 02/12/23 [...] needed, # 1 EA, 0 Refill(s), Pharmacy: [facility] 4156, 165.1, cm, 04/26/23 9:23:00 EST, Height, 66.85, kg, 05/22/23 15:26:00 EDT, Weight Dosing Start Date: 06/27/23 Status: Ordered hydrOXYzine hydrochloride 25 mg oral tablet 25 mg = 1 tab, Oral, As Directed, PRN insomnia/anxiety, take 1 tab at bedtime prn, # 90 tab, 1 Refill(s), 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 Lamictal 100mg BID. [place] ER 450mg 1 1/2 tabs qhs. cymbalta [...] prior to sleep studies. see narcolepsy section [facility] 12-14-2020 visit: Medications trialed and unable to tolerate TCAs, duloxetine, gabapentin, lyrica, cyclobenzaprine. She has seen rheumatology . 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 We discussed trial of naltrexone for her chronic pain. Naltrexone 1-4.5 mg qd. Would need to send rx to compounding pharmacy in [place]. Reviewed MOA, side effects. She would also like to get involved in resistance band training. >50% of this 40 minute appointment was spent in face to face counseling. 6[facility] visit: S/P LT partial thyroidectomy. TSH annually. She is not on thyroid replacement. [facility] 11[facility]-2020 visit: Has been on atorvastatin 20 mg qd since 10/2019. She is tolerating well. Repeat FLP and CMP. 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 consultation 01/07/21 with additional imaging, BI-RADS: [...] back position sleep From 05-19-2020 visit: 07/31/18: [facility] records not available [...] qualify for fin assistance at [facility] due to just being . Requested [facility] records to review. [...] Role: Informed Provider Address: Address: [facility] [address] Care Team Related Persons Name: EMY COBOS Address: [address], [phone] Name: EMY COBOS Address: Home [address] [place], [place] [phone] Name: EMY COBOS Address: [address], [phone] Name: AMARIS DE LA FUENTE
--- OUTSIDE RECORDS SUMMARY | 2023-10-04 01:03 | XMS_ITS | Continuity of Care Document ---
Author Organization [facility] Address [address] [place] [address] Care Team Providers Care Engineer And Geologist Name Role Phone Dina Diaz Primary Care Physician Encounter [facility] [id number] Date(s): 02/12/23 - 02/12/23 [facility] [address] [place] [address] Encounter Diagnosis Cough(Discharge Diagnosis) - 02/12/23 Discharge Disposition: Home or Self Care Attending Physician: Davin Hogue MD Admitting Physician: Davin Hogue MD Allergies, Adverse Reactions, Alerts Substance Reaction [...] swallow. 5immunotherapy Assessment and Plan Extracted from: Title:Clinical Document Author:Christina De La Paz te:02/12/23 Diagnosis: 1. Cough Comment: Diagnosis: SOB - Shortness of breath Comment: Additional Orders: Comment: Other status: CV EKG ED,02/12/23 12:19:00 EST, Routine, Reason: Dyspnea, Stop date and time 02/12/23 12:19:00 EST, ORD_SET_REQ_DT_RANGE, Cerner's Internal Person Id(Complete) Future Appointments Immunizations Given and Recorded Vaccine [...] 2Result Comment: [employer] 3Result Comment: Workers' Compensation Mediator: REEL Qualified 4Result Comment: Workers' Compensation Mediator: [employer] Medications acetaminophen 325 mg oral tablet 650 mg = 2 tab, Oral, every 4 hr, PRN other (see comment), as needed, 0 Refill(s) Start Date: 07/08/21 Status: Ordered albuterol 90 mcg/inh aerosol inhaler 2 puffs, Inhale, every 6 hr, PRN as needed for wheezing, # 8 g, 0 Refill(s), Pharmacy: [id number], 165, cm, 01/04/23 10:12:00 EST, Height, 66.65, kg, 01/30/23 13:31:00 EST, Weight Dosing Start Date: 01/30/23 Status: Ordered atorvastatin 20 mg oral tablet 1 tab, Oral, every morning, # 90 tab, 0 Refill(s), Pharmacy: [id number], 165, cm, 04/12/22 13:34:00 [...] # 30 cap, 0 Refill(s), Pharmacy: [id number], 165, cm, 01/04/23 10:12:00 EST, Height, 66.65, kg,01/30/23 13:31:00 EST, Weight Dosing Start Date: 01/31/23 Status: Ordered doxepin 3 mg oral tablet See Instructions, take 1 to 2 tab Oral every day at bedtime, # 30 tab, 1 Refill(s), Pharmacy: 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, 165, cm, 02/12/23 14:42:00 EST, Height, 67.75, kg, 02/07/23 10:12:00 EST, Weight Dosing Start Date: 02/12/23 Stop Date: 02/13/24 Status: Ordered ipratropium-albuterol 0.5 mg-2.5 mg/3 mL inhalation solution 3 mL, Nebulized Inhalation, QID, PRN dyspnea, # 30 EA, 1 Refill(s), Pharmacy: [id number], 165, cm, 01/04/23 10:12:00 [...] # 45 tab, 0 Refill(s), Pharmacy: [id number], 165, cm, 01/04/23 10:12:00 EST, Height, 67.75, kg, 02/07/23 10:12:00 EST, Weight Dosing Start Date: 02/07/23 Status: Ordered prochlorperazine 10 mg oral tablet 10 mg = 1 tab, Oral, every 8 hr, PRN other (see comment), as needed per [facility] headache clinic Start Date: 07/08/21 Status: Ordered traZODone 100 mg oral tablet See Instructions, TAKE 1 TABLET BY MOUTH ONCE DAILY AT BEDTIME, # 90 tab, 3 Refill(s), Pharmacy: [id number], 165, cm, 04/12/22 13:34:00 EST, Height/Length Dosing, 59.87, kg, 04/12/22 13:34:00 EST, Weight Dosing Start Date: 11/09/22 Status: Ordered traZODone 50 mg oral tablet 50 mg = 1 tab, Oral, every night at bedtime, PRN as needed for sleep, # 30 tab, 2 Refill(s), Pharmacy: [id number], 165, cm, 01/04/23 10:12:00 [...] meds as of . Lamictal 100mg BID. King ER 450mg 1 1/2 tabs qhs. 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. We discussed trial of naltrexone for her chronic pain. Naltrexone 1-4.5 mg qd. Would need to send rx to compounding pharmacy in [place]. Reviewed MOA, side effects. 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 Requested [facility] records to review. Order Home Sleep Study, [...] by suprapubic sling 09/27/15 Completed Subtotal thyroidectomy 11/30/14 Co mpleted Partial mastectomy 11/26/09 Comple maame Orthopedic surgery 5 09/2009 Comp leted Rhinoseptoplasty 02/26/06 Complete d Endometrial ablation 11/27/99 Comp leted Cholecystectomy 07/27/97 Completed Tubal ligation 02/27/96 Completed 1LT L4-5 hemilaminectomy, medial facetectomy and microsurgical discectomy 2repeat in 5 yrs due to h/o of colon polyps 3gastritis, esophagitis. 4TLH, BS, USVVS, TVT, cystocele repair 5shoulder/labrum repair 09/2009 Results Laboratory List Name Date Blood Gas Venous 02/12/23 CBC w/ Diff 02/12/23 Comprehensive Metabolic Panel 02/12/23 D-Dimer 02/12/23 Lactic Acid 02/12/23 SARS-CoV-2 (COVID-19)/Flu/RSV (GeneXpert ) 02/12/23 Troponin-I 02/12/23 .Manual Differential (NCTY) 02/12/23 Most recent to oldest [Reference Range]: 1 WBC [5.0-10.0 x10^3/mcL] 9.9 x10^3/mcL (02/12/23 12:29 PM) RBC [4.1-5.3 x10^6/mcL] 4.8 x10^6/mcL (02/12/23 12:29 PM) Segs Man [40-75 %] 79 % *HI* (02/12/23 12:29 PM) Lymph Man [20-50 %] 19 % *LOW* (02/12/23 12:29 PM) Mcpherson Man [2-15 %] 2 % (02/12/23 12:29 PM) Eos Man [1-6 %] 0 % *LOW* (02/12/23 12:29 PM) BUN [7-18 mg/dL] 15 mg/dL (02/12/23 12:29 PM) Glucose Level [74-106 mg/dL] 126 mg/dL *HI* (02/12/23 12:29 PM) Potassium Level [3.5-5.1 mmol/L] 3.8 mmo l/L (02/12/23 12:29 PM) MCV [80.0-96.0 fL] 87.0 fL (02/12/23 12:29 PM) RBC Morph Normal (02/12/23 12: PM) CO2 Total Venous 22 mmol/L *NA* (02/12/23 12: PM) HCO3 Venous [22-30 mmol/L] 22 mmol/L (02/12/23 12: PM) AST [15-37 unit/L] 13 unit/L *LOW* (02/12/23 12: PM) ALT [14-59 unit/L] 27 unit/L (02/12/23: PM) MCHC [31.0-35.0 g/dL] 33.9 g/dL (02/12/23 12: PM) Troponin-I [0.0-51.4 pg/mL] <5.0 pg/mL (02/12/23: PM) Sodium Level [136-145 mmol/L] 137 mmol/L (02/12/23: PM) Hct [37.0-47.0 %] 41.6 % (02/12/23: PM) Calcium Level [8.5-10.1 mg/dL] 10.4 mg/d L *HI* (02/12/23 12: PM) Albumin Level [3.4-5.0 g/dL] 4.2 g/dL (02/12/23: PM) Protein Total [6.4-8.2 g/dL] 8.4 g/dL *HI* (02/12/23 12: PM) MCH [26.0-32.0 pg] 29.5 pg (02/12/23: PM) Bilirubin Total [0.2-1.0 mg/dL] 0.4 mg/d L (02/12/23 12: PM) Hgb [12.0-16.0 g/dL] 14.1 g/dL (02/12/23 12: PM) Alk Phos [46-146 unit/L] 100 unit/L (02/12/23 12: PM) pCO2 Rodney [33-47 mmHg] 22 mmHg *LOW* (02/12/23 12:29 PM) Band Man [0-5 %] 0 % (02/12/23 12:29 PM) Platelets [130-450 x10^3/mcL] 399 x10^3/ mcL (02/12/23 12:29 PM) CO2 [21-32 mmol/L] 20 mmol/L *LOW* (02/12/23 12:29 PM) Lactic Acid Lvl [0.7-2.0 mmol/L] 4.1 mmo l/L 1 *CRIT* (02/12/23 12:29 PM) pO2 Rodney 21 mmHg *NA* (02/12/23 12:29 PM) pH Rodney [7.32-7.43 pH unit(s)] 7.60 pH un it(s) *HI* (02/12/23 12:29 PM) O2 Sat Rodney 50 % *NA* (02/12/23 12:29 PM) eGFR Non-AA [>=60] 87 (02/12/23 12:29 PM) eGFR AA [>=60] 87 (02/12/23 12:29 PM) Base Excess Venous 2.0 mmol/L *NA* (02/12/23 12: PM) Chloride Level [98-107 mmol/L] 99 mmol/L (02/12/23 12:29 PM) RDW-CV [11.5-14.5 %] 13.9 % (02/12/23 12:29 PM) Slide Review Man Diff (02/12/23 12:29 PM) Abs Neut Man 7.8 x10^3/mcL *NA* (02/12/23 12:29 PM) Creatinine Level [0.55-1.02 mg/dL] 0.82 mg/dL (02/12/23 12:29 PM) Employed in healthcare? Unknown *NA* (02/12/23 12:29 PM) Symptomatic as defined by CDC? Unknown *NA* (02/12/23 12:29 PM) Hospitalized due to COVID-19? No *NA* (02/12/23 12:29 PM) In ICU? No *NA* (02/12/23 12:29 PM) Group care resident? No *NA* (02/12/23 12:29 PM) status? Not *NA* (02/12/23 12:29 PM) SARS-CoV-2(Covid19)PCR(GXpert COVFLURSV) [Negative] Negative (02/12/23 12:29 PM) Flu A (GXpert COVFLURSV) [Negative] Nega tive (02/12/23 12:29 PM) RSV (GXpert COVFLURSV) [Negative] Negati ve (02/12/23 12:29 PM) Flu B (GXpert COVFLURSV) [Negative] Nega tive (02/12/23 12:29 PM) Baso Man [0-1 %] 0 % (02/12/23 12:29 PM) D Dimer, (Quant.) [0.00-0.50 mg/L] 0.72 mg/L 2 *HI* (02/12/23 12:29 PM) 1Result Comment: Called to and verbally verified by Feliberto Pandey at 02/12/2023 12:37:03 EST. 2Interpretive Data: Exclusion of PE: Effective November 16, 2011 a new D-Dimer assay [INNOVANCE] is being implemented, this test has a new reference range <0.50 mg/L FEU. This assay was evaluated in a multi-center study to validate the exclusion of PE using fresh specimens collected from 701 consecutive patients presenting in the ED with suspected PE. Study patients were evaluated using the Wells' rules to estimate high, moderate or low probability of PE, a D-Dimer result of <0.50 mg/L FEU was considered negative and a D-Dimer result >/= 0.50 was considered positive for PE. Vital Signs Most recent to oldest [Reference Range]: 1 2 3 Temperature Oral [35.8-37.3 Deg C] 36.7 Deg C (02/12/23 12:14 PM) Peripheral Pulse Rate [60-100 bpm] 84 bpm (02/12/23 2:21 PM) 87 bpm (02/12/23 1:50 PM) 107 bpm *HI* (02/12/23 1:16 PM) Heart Rate Monitored [60-100 bpm] 84 bpm (02/12/23 2:21 PM) 98 bpm (02/12/23 1:50 PM) 109 bpm *HI* (02/12/23 1:16 PM) Respiratory Rate [12-24 br/min] 16 br/min (02/12/23 2:21 PM) 23 br/min (02/12/23 1:50 PM) 25 br/min *HI* (02/12/23 1:16 PM) Blood Pressure [90-140/60-90 mmHg] 103/62mmHg (02/12/23 1:16 PM) 123/72mmHg (02/12/23 12:14 PM) Mean Arterial Pressure, Cuff [70-110 mmHg] 76 mmHg (02/12/23 1:16 PM) 89 mmHg (02/12/23 12:14 PM) Height 165 cm (02/12/23 2:41 PM) Social History Social History Type Response Smoking Status Smoking tobacco use: Never tobacco user;Never 1 entered on: 08/16/22 Sex Female 1How much tobacco do you chew: none What was the date of your most recent tobacco screenin05-25-2021 Hospital Discharge Instructions Patient Education 02/12/2023 13:44:29 Cough, Adult Cough, Adult Coughing is a reflex that clears your throat and your airways (respiratory system). Coughing helps to heal and protect your lungs. It is normal to cough occasionally, but a cough that happens with other symptoms or lasts a long time may be a sign of a condition that needs treatment. An acute cough may only last 2???3 weeks, while a chronic cough may last 8 or more weeks. Coughing is commonly caused by: ??? Infection of the respiratory systemby viruses or bacteria. ??? Breathing in substances that irritate your lungs. ??? Allergies. ??? Asthma. ??? Mucus that runs down the back of your throat (postnasal drip). ??? Smoking. ??? Acid backing up from the stomach into the esophagus (gastroesophageal reflux). ??? Certain medicines. ??? Chronic lung problems. ??? Other medical conditions such as heart failure or a blood clot in the lung (pulmonary embolism). Follow these instructions at home: Medicines ??? Take xsmr-qtk-wtwftcg and prescription medicines only as told by your health care provider. ??? Talk with your health care provider before you take a cough suppressant medicine. Lifestyle ??? Avoid cigarette smoke. Do not use any products that contain nicotine or tobacco, such as cigarettes, e-cigarettes, and chewing tobacco. If you need help quitting, ask your health care provider. ??? Drink enough fluid to keep your urine pale yellow. ??? Avoid caffeine. ??? Do not drink alcohol if your health care provider tells you not to drink. General instructions ??? Pay close attention to changes in your cough. Tell your health care provider about them. ??? Always cover your mouth when you cough. ??? Avoid things that make you cough, such as perfume, candles, cleaning products, or campfire or tobacco smoke. ??? If the air is dry, use a cool mist vaporizer or humidifier in your bedroom or your home to helploosen secretions. ??? If your cough is worse at night, try to sleep in a semi-upright position. ??? Rest as needed. ??? Keep all follow-up visits as told by your health care provider. This is important. Contact a health care provider if you: ??? Have new symptoms. ??? Cough up pus. ??? Have a cough that does not get better after 2???3 weeks or gets worse. ??? Cannot control your cough with cough suppressant medicines and you are losing sleep. ??? Have pain that gets worse or pain that is not helped with medicine. ??? Have a fever. ??? Have unexplained weight loss. ??? Have night sweats. Get help right away if: ??? You cough up blood. ??? You have difficulty breathing. ??? Your heartbeat is very fast. These symptoms may represent a serious problem that is an emergency. Do not wait to see if the symptoms will go away. Get medical help right away. Call your local emergency services (911 in the [place] Do not drive yourself to the hospital. Summary ??? Coughing is a reflex that clears your throat and your airways. It is normal to cough occasionally, but a cough that happens with other symptoms or lasts a long time may be a sign of a condition that needs treatment. ??? Take vjrq-cnn-kjvlncq and prescription medicines only as told by your health care provider. ??? Always cover your mouth when you cough. ??? Contact a health care provider if you have new symptoms or a cough that does not get better after 2???3 weeks or gets worse. This information is not intended to replace advice given to you by your health care provider. Make sure you discuss any questions you have with your health care provider. Document Revised: 03/04/2019 Document Reviewed: 03/04/2019 [employer] Patient Education ?? 2022 [employer]. Follow Up Care 02/12/2023 12:14:39 With:Follow up with primary care provider Address: When:1 to 2 weeks Physician Emergency department Note * Cheryl Roy MD: PERFORM Event Display: ED Note Physician Authored Date: [id number] CODY COBOS :1970 Age:52 years Sex:Female Visit Date:02/12/2023 Primary Care Physician: Dina Diaz Basic Information Time Seen: Cheryl Roy MD / 02/12/2023 12:18 Chief Complaint Pt repotrs 3 week history of PNA, treated w/ 2 abx, steroids, and nebulizers, reports she was feeling better but then started feeling worse. Pt SOB and c/o dizziness, pointing and using hand gestures instead of speaking. History Of Present Illness: Patient reports she became short of breath this morning after doing a DuoNeb.?? Patient reports??for the last 3 weeks she??has had pneumonia she reports she has been on 2??different antibiotics and steroids.?? Review of Cerner??appears patient with??was seen on 01/30/2023 placed on??azithromycin/Z-Abel??and given an metered-dose inhaler albuterol??she was again seen on 02/08/2020. ??She was placed on a prednisone taper starting at 50 mg of??reducing by 10 mg every 3 days and a nebulizer??with DuoNeb medicine. ??Patient denies any fevers??over the last day or 2??no ear nose or throat pain??positive cough??she is feeling very short of breath and feels like??she has difficulty talking without being short of breath.?? No nausea no vomiting no extremity edema no skin rashes. ??Patient is here with her . Review of Systems: see hpi for ros Physical Exam Vitals & Measurements T:??36.7?C ??(Oral)?? HR:??84??(Peripheral)?? HR:??84??(Monitored)?? RR:??16?? BP:??103/62?? SpO2:??99%?? HT:??165??cm?? O2 Therapy:??Room air?? General: Alert and oriented, well nourished,?No??acute distress, periodic nonproductive??cough throughout??exam??patient appears short of breath when talking Eye: PER?Normal??conjunctiva,??No??scleral icterus HENT: Normocephalic,??nontraumatic??Normal hearing Neck: Supple, non-tender,?No??JVD,?No??lymphadenopathy Lungs: Clear to auscultation,?Non-labored?? respiration Heart:?Normal?? rate,?Regular??rhythm,?No??murmur,?No??gallop,?No??edema Chest: wall excursion wnl no abnormal movements no obvious deformities Abdomen: Soft, non-tender, non-distended,??No??masses Musculoskeletal:?Normal?? range of motion and strength,?No??tenderness,?No??swelling Skin: Skin is warm, dry and pink,?No??rashes,?No??lesions Neurologic: Awake, alert and oriented X4 Psychiatric: Cooperative, appropriate mood and affect Medical Decision Making: For MDM please see under assessment and plan Procedure No Qualifying Data Assessment/Plan 1.??Cough??R05.9 Patient with persistent cough after upper respiratory infection possible pneumonia CT does not showany PEs or pneumonia present??today.?? Patient is on a prednisone taper??she received an [id number] mg of Solu-Medrol since she is only on 40 mg??prednisone currently however I do not think??thatthis was necessarily helpful for her.?? Patient did seem anxious and hyperventilating here in the emergency department??I think this caused her??respiratory alkalosis??respiratory therapy did say herpeak flow was less than expected??patient will try hydroxyzine??25 mg 4 times a day to see if thereis any component of postnasal drip??or secretions that may be causing her??cough.?? If patient has continued cough she may need??other medication such as pregabalin or??gabapentin. Ordered: hydrOXYzine hydrochloride 25 mg oral tablet, 25 mg = 1 tab, Oral, QID, PRN cough, # 80 tab, 0 Refill(s), 02/13/24 14:44:00 EST, Pharmacy: [id number], 165, cm, 02/12/23 14:42:00 EST, Height, 67.75, kg, 02/07/23 10:12:00 EST, Weight Dosing Discharge Patient, 02/12/23 14:43:00 EST, Home Independently, Constant Indicator ED Visit Follow Up [facility], Christine for future visit, 02/12/23 14:44:00 EST, Cough ?? Patient Education Cough, Adult Follow Up With When Contact Information Follow up with primary care provider Within 1 to 2 weeks Additional Instructions: Medication Reconciliation Changed hydrOXYzine (hydrOXYzine hydrochloride 25 mg oral tablet)Oral (given by mouth). 1 Unknown, 1 Refill(s), Take 1 tablet by mouth as needed.. ?? hydrOXYzine (hydrOXYzine hydrochloride 25 mg oral tablet)1 tab Oral (given by mouth) 4 times a day as needed cough. Refills: 0. ?? Unchanged acetaminophen (acetaminophen 325 mg oral tablet)2 tab Oral (given by mouth) every 4 hours as neededother (see comment). as needed. ?? albuterol (albuterol 90 mcg/inh aerosol inhaler)2 Puffs Inhale (breathe in) every 6 hours as neededas needed for wheezing. Refills: 0. ?? atorvastatin (atorvastatin 20 mg oral tablet)1 tab Oral (given by mouth) every morning. Refills: 0. ?? baclofen (baclofen 10 mg oral tablet)90 EA, TAKE 1 TABLET BY MOUTH THREE TIMES DAILY NEEDED FOR MILD TO MODERATE HEADACHES - MAX DAILY DOSE 3 TABLETS (30MG). ?? benzonatate (benzonatate 100 mg oral capsule)1 Capsules Oral (given by mouth) every 8 hours as needed as needed for cough. 1-2 tabs for cough every 8 hours. Refills: 0. ?? doxepin (doxepin 3 mg oral tablet)take 1 to 2 tab Oral every day at bedtime. Refills: 1. ?? Durable Medical Equipment for Prescription (nebulizer machine)use nebulizer 3- 4X/day for dyspnea, wheezing and cough. Refills: 0. ?? EPINEPHrine (EPINEPHrine 0.3 mg injectable kit)1 auto Intramuscular (in a muscle) As Directed as needed other (see comment). as needed. ?? ipratropium-albuterol (ipratropium-albuterol 0.5 mg-2.5 mg/3 mL inhalation solution)3 Milliliters Nebulized inhalation (inhale using nebulizer) 4 times a day as needed dyspnea. Refills: 1. ?? ketorolacPRN. ?? predniSONE (predniSONE 10 mg oral tablet)5 tabs x 3 days, 4 tabs x 3 days, 3 tabs x 3 days, 2 tabs x 3 days, 1 tab x 3 days, then stop. Refills: 0. ?? prochlorperazine (prochlorperazine 10 mg oral tablet)1 tab Oral (given by mouth) every 8 hours as needed other (see comment). as needed per [facility] headache clinic. ?? rimegepant (Nurtec ODT 75 mg oral tablet, disintegrating) ?? traZODone (traZODone 100 mg oral tablet)TAKE 1 TABLET BY MOUTH ONCE DAILY AT BEDTIME. Refills: 3. ?? traZODone (traZODone 50 mg oral tablet)1 tab Oral (given by mouth) every night at bedtime as neededas needed for sleep for 30 Days. Refills: 2. ?? ubrogepant (Ubrelvy 100 mg oral tablet)TAKE 1 TABLET BY MOUTH NEEDED (TAKE AT ONSET OF MIGRAIN, CAN REPEAT DOSE IN 2 HOURS, MAX DOSE OF 200 MG). Problem List/Past Medical History Ongoing Abnormal cervical [...] (11/28/1999)???Cholecystectomy (07/28/1997)???Tubal ligation (02/28/1996) Medication Administration Given 0.9% NaCl bolus, 1000 mL, Medication Bolus SOLU-Medrol, 125 mg, IV Push Allergies SHELLFISH DERIVED??(Anaphylactic reaction) rimegepant??(Eruption) dilTIAZem??(Depression, Chest pain) ARIPiprazole DilTIAZem (Eqv-Cardizem CD)??(Unknown) HYDROcodone??(Unknown) Latex??(no reaction) Peanuts Provigil??(Unknown) Roxicet??(Unknown) SOY TREE AND SHRUB POLLEN Tree Nuts??(Unknown) WHEAT acetaminophen-hydrocodone??(Unknown) acetaminophen-oxycodone??(Unknown) amitriptyline armodafinil??(Other) codeine imipramine??(Unknown) metoprolol??(Depression) modafinil??(runny nose, Difficulty swallowing, Other) morphine oxyCODONE Social History Alcohol Past- Comments: None Rarely Electronic Cigarette/Vaping Electronic Cigarette Use: Never. 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 Home/Environment Lives with Spouse. Nutrition/Health Diet: Regular. [...] Mitral valve prolapse: Mother. Rheumatoid arthritis: Sister. Referral Orders ED Visit Follow Up [facility] Orders for future visit, 02/12/23 14:44:00 EST, Cough Lab Results Blood Gases?? LATEST RESULTS?? pH Rodney?? 02/12/23 12:29?? 7.60 ??High?? pCO2 Rodney?? 02/12/23 12:29?? 22 ??Low?? pO2 Rodney?? 02/12/23 12:29?? 21?? HCO3 Venous?? 02/12/23 12:29?? 22?? O2 Sat Rodney?? 02/12/23 12:29?? 50?? CO2 Total Venous?? 02/12/23 12:29?? 22?? Base Excess Venous?? 02/12/23 12:29?? 2.0? CBC and Differential?? LATEST RESULTS?? HISTORICAL RESULTS?? WBC?? 02/12/23 12:29?? 9.9?? 04/08/22?? 6.7?? RBC?? 02/12/23 12:29?? 4.8?? 04/08/22?? 4.7?? Hgb?? 02/12/23 12:29?? 14.1?? 04/08/22?? 14.1?? Hct?? 02/12/23 12:29?? 41.6?? 04/08/22?? 43.6?? MCV?? 02/12/23 12:29?? 87.0?? 04/08/22?? 93.0?? MCH?? 02/12/23 12:29?? 29.5?? 04/08/22?? 30.1?? MCHC?? 02/12/23 12:29?? 33.9?? 04/08/22?? 32.3?? RDW-CV?? 02/12/23 12:29?? 13.9?? 04/08/22?? 13.2?? Platelets?? 02/12/23 12:29?? 399?? 04/08/22?? 312?? Segs Man?? 02/12/23 12:29?? 79 ??High? Lymph Man?? 02/12/23 12:29?? 19 ??Low? Mcpherson Man?? 02/12/23 12:29?? 2? Eos Man?? 02/12/23 12:29?? 0 ??Low? Baso Man?? 02/12/23 12:29?? 0? Band Man?? 02/12/23 12:29?? 0? Abs Neut Man?? 02/12/23 12:29?? 7.8? RBC Morph?? 02/12/23 12:29?? Normal? Slide Review?? 02/12/23 12:29?? Man Diff? Coagulation?? LATEST RESULTS?? D Dimer, (Quant.)?? 02/12/23 12:29?? 0.72 ??High? Routine Chemistry?? LATEST RESULTS?? HISTORICAL RESULTS?? Sodium Level?? 02/12/23 12:29?? 137?? 08/17/22?? 135 ??Low?? Potassium Level?? 02/12/23 12:29?? 3.8?? 08/17/22?? 4.1?? Chloride Level?? 02/12/23 12:29?? 99?? 08/17/22?? 100?? CO2?? 02/12/23 12:29?? 20 ??Low?? 08/17/22?? 30?? Alk Phos?? 02/12/23 12:29?? 100?? 08/17/22?? 69?? AST?? 02/12/23 12:29?? 13 ??Low?? 08/17/22?? 9 ??Low?? ALT?? 02/12/23 12:29?? 27?? 08/17/22?? 21?? BUN?? 02/12/23 12:29?? 15?? 08/17/22?? 22 ??High?? Glucose Level?? 02/12/23 12:29?? 126 ??High?? 08/17/22?? 100?? Creatinine Level?? 02/12/23 12:29?? 0.82?? 08/17/22?? 0.63?? eGFR AA?? 02/12/23 12:29?? 87?? 08/17/22?? 107?? eGFR Non-AA?? 02/12/23 12:29?? 87?? 08/17/22?? 107?? Calcium Level?? 02/12/23 12:29?? 10.4 ??High?? 08/17/22?? 9.1?? Protein Total?? 02/12/23 12:29?? 8.4 ??High?? 08/17/22?? 7.3?? Albumin Level?? 02/12/23 12:29?? 4.2?? 08/17/22?? 4.0?? Bilirubin Total?? 02/12/23 12:29?? 0.4?? 08/17/22?? 0.5?? Lactic Acid Lvl?? 02/12/23 12:29?? 4.1 ??Critical? Cardiac Isoenzymes?? LATEST RESULTS?? Troponin-I?? 02/12/23 12:29?? <5.0? Infectious Disease?? LATEST RESULTS?? HISTORICAL RESULTS?? Employed in healthcare??? 02/12/23 12:29?? Unknown? Symptomatic as defined by CDC??? 02/12/23 12:29?? Unknown? Hospitalized due to COVID-19??? 02/12/23 12:29?? No? In ICU??? 02/12/23 12:29?? No? Group care resident??? 02/12/23 12:29?? No? status??? 02/12/23 12:29?? Not ? SARS-CoV-2(Covid19)PCR(GXpert COVFLURSV)?? 02/12/23 12:29?? Negative?? 02/07/23?? Negative?? Flu A (GXpert COVFLURSV)?? 02/12/23 12:29?? Negative?? 02/07/23?? Negative?? Flu B (GXpert COVFLURSV)?? 02/12/23 12:29?? Negative?? 02/07/23?? Negative?? RSV (GXpert COVFLURSV)?? 02/12/23 12:29?? Negative?? 02/07/23?? Negative? Electronically Signed on 02/12/23 02:47 PM Cheryl Roy MD Emergency department Discharge instructions * Cheryl Roy MD: PERFORM Event Display: ED Discharge Information Authored Date: [id number] CHANDRIKADILEEPMarian Gan :1970 Age:52 years Sex:Female Visit Date:02/12/2023 Primary Care Physician: Dina Diaz Discharge Instructions We would like to thank you for allowing us to assist you with your healthcare needs. The following includes patient education materials and information regarding your injury/illness. Diagnosis from Today's Visit Cough Discharge Vitals Temperature??(Oral) 98.1 ??F (36.7 ??C) Heart Rate??(Peripheral) 84 Heart Rate??(Monitored) 84 Respiratory Rate?? 16 Blood Pressure?? 103/62?? Height?? 64.96 in (165 cm) Allergies SHELLFISH DERIVED??(Anaphylactic reaction) rimegepant??(Eruption) dilTIAZem??(Depression, Chest pain) ARIPiprazole DilTIAZem (Eqv-Cardizem CD)??(Unknown) HYDROcodone??(Unknown) Latex??(no reaction) Peanuts Provigil??(Unknown) Roxicet??(Unknown) SOY TREE AND SHRUB POLLEN Tree Nuts??(Unknown) WHEAT acetaminophen-hydrocodone??(Unknown) acetaminophen-oxycodone??(Unknown) amitriptyline armodafinil??(Other) codeine imipramine??(Unknown) metoprolol??(Depression) modafinil??(runny nose, Difficulty swallowing, Other) morphine oxyCODONE What to Do Next Instructions from Your Care Team Try hydroxyzine 25 mg 4 times a day to see if this will help with any postnasal drip and your cough. ??Continue your DuoNeb nebulizer??4 times a day??as needed.?? If you have continued cough please see your primary care provider in follow-up.?? Continue your prednisone taper as prescribed by your primary care provider. You Need to Schedule the Following Appointments Follow Up with??Follow up with primary care provider When:??Within 1 to 2 weeks Upcoming Scheduled Appointments Monday 12:45 PM EST ?? With: Roxanna Leonard DNP Where: [facility] [address] [address] Status: Confirmed Monday 10:40 AM EDT ?? With: Dina Diaz Where: [facility] [address] [address] Status: Confirmed Monday 10:00 AM EST ?? With: Simone Jimenez MD Where: [facility] [address] [place] [id number] Status: Confirmed You were treated today on an emergency [...] Much When Why Instructions Next Dose Changed hydrOXYzine (hydrOXYzine hydrochloride 25 mg oral tablet) 1 tab Oral (given by mouth) 4 times a day as needed for cough Cough Pickup at [facility] 4155 Changed hydrOXYzine (hydrOXYzine hydrochloride 25 mg oral [...] for other (see comment) as needed per [facility] ?? Unchanged rimegepant (Nurtec ODT [...] MAX DOSE OF200 MG) ?? Pharmacy Information [facility] 4156: [address] [id number] [phone] Education Materials Cough, Adult Coughing is a reflex that clears your throat and your airways (respiratory system). Coughing helps to heal and protect your lungs. It is normal to cough occasionally, but a cough that happens with other symptoms or lasts a long time may be a sign of a condition that needs treatment. An acute cough may only last 2???3 weeks, while a chronic cough may last 8 or more weeks. Coughing is commonly caused by: ? Infection of the respiratory systemby viruses or bacteria. ? Breathing in substances that irritate your lungs. ? Allergies. ? Asthma. ? Mucus that runs down the back of your throat (postnasal drip). ? Smoking. ? Acid backing up from the stomach into the esophagus (gastroesophageal reflux). ? Certain medicines. ? Chronic lung problems. ? Other medical conditions such as heart failure or a blood clot in the lung (pulmonary embolism). Follow these instructions at home: Medicines ? Take rmqv-fma-oatbthq and prescription medicines only as told by your health care provider. ? Talk with your health care provider before you take a cough suppressant medicine. Lifestyle ? Avoid cigarette smoke. Do not use any products that contain nicotine or tobacco, such as cigarettes, e-cigarettes, and chewing tobacco. If you need help quitting, ask your health care provider. ? Drink enough fluid to keep your urine pale yellow. ? Avoid caffeine. ? Do not drink alcohol if your health care provider tells you not to drink. General instructions ? Pay close attention to changes in your cough. Tell your health care provider about them. ? Always cover your mouth when you cough. ? Avoid things that make you cough, such as perfume, candles, cleaning products, or campfire or tobacco smoke. ? If the air is dry, use a cool mist vaporizer or humidifier in your bedroom or your home to help loosen secretions. ? If your cough is worse at night, try to sleep in a semi-upright position. ? Rest as needed. ? Keep all follow-up visits as told by your health care provider. This is important. Contact a health care provider if you: ? Have new symptoms. ? Cough up pus. ? Have a cough that does not get better after 2???3 weeks or gets worse. ? Cannot control your cough with cough suppressant medicines and you are losing sleep. ? Have pain that gets worse or pain that is not helped with medicine. ? Have a fever. ? Have unexplained weight loss. ? Have night sweats. Get help right away if: ? You cough up blood. ? You have difficulty breathing. ? Your heartbeat is very fast. These symptoms may represent a serious problem that is an emergency. Do not wait to see if the symptoms will go away. Get medical help right away. Call your local emergency services (911 in the [place] Do not drive yourself to the hospital. Summary ? Coughing is a reflex that clears your throat and your airways. It is normal to cough occasionally, but a cough that happens with other symptoms or lasts a long time may be a sign of a condition that needs treatment. ? Take kmkc-mef-yyyfydl and prescription medicines only as told by your health care provider. ? Always cover your mouth when you cough. ? Contact a health care provider if you have new symptoms or a cough that does not get better after 2???3 weeks or gets worse. This information is not intended to replace advice given to you by your health care provider. Make sure you discuss any questions you have with your health care provider. Document Revised: 03/04/2019 Document Reviewed: 03/04/2019 [employer] Patient Education ?? 2022 [employer] Tests Performed Medications and Immunizations Administered Given 0.9% NaCl bolus, 1000 mL, Medication Bolus SOLU-Medrol, 125 mg, IV Push Lab Test Name Test Result Date/Time pH Rodney 7.60 pH unit(s) 02/12/2023 12:29 EST pCO2 Rodney 22 mmHg 02/12/2023 12:29 EST pO2 Rodney 21 mmHg 02/12/2023 12:29 EST HCO3 Venous 22 mmol/L 02/12/2023 12:29 EST O2 Sat Rodney 50 % 02/12/2023 12:29 EST CO2 Total Venous 22 mmol/L 02/12/2023 12:29 EST Base Excess Venous 2.0 mmol/L 02/12/2023 12:29 EST WBC 9.9 x10^3/mcL 02/12/2023 12:29 EST RBC 4.8 x10^6/mcL 02/12/2023 12:29 EST Hgb 14.1 g/dL 02/12/2023 12:29 EST Hct 41.6 % 02/12/2023 12:29 EST MCV 87.0 fL 02/12/2023 12:29 EST MCH 29.5 pg 02/12/2023 12:29 EST MCHC 33.9 g/dL 02/12/2023 12:29 EST RDW-CV 13.9 % 02/12/2023 12:29 EST Platelets 399 x10^3/mcL 02/12/2023 12:29 EST Segs Man 79 % 02/12/2023 12:29 EST Lymph Man 19 % 02/12/2023 12:29 EST Mcpherson Man 2 % 02/12/2023 12:29 EST Eos Man 0 % 02/12/2023 12:29 EST Baso Man 0 % 02/12/2023 12:29 EST Band Man 0 % 02/12/2023 12:29 EST Abs Neut Man 7.8 x10^3/mcL 02/12/2023 12:29 EST RBC Morph Normal 02/12/2023 12:29 EST Slide Review Man Diff 02/12/2023 12:29 EST D Dimer, (Quant.) 0.72 mg/L 02/12/2023 12:29 EST Sodium Level 137 mmol/L 02/12/2023 12:29 EST Potassium Level 3.8 mmol/L 02/12/2023 12:29 EST Chloride Level 99 mmol/L 02/12/2023 12:29 EST CO2 20 mmol/L 02/12/2023 12:29 EST Alk Phos 100 unit/L 02/12/2023 12:29 EST AST 13 unit/L 02/12/2023 12:29 EST ALT 27 unit/L 02/12/2023 12:29 EST BUN 15 mg/dL 02/12/2023 12:29 EST Glucose Level 126 mg/dL 02/12/2023 12:29 EST Creatinine Level 0.82 mg/dL 02/12/2023 12:29 EST eGFR AA 87 02/12/2023 12:29 EST eGFR Non-AA 87 02/12/2023 12:29 EST Calcium Level 10.4 mg/dL 02/12/2023 12:29 EST Protein Total 8.4 g/dL 02/12/2023 12:29 EST Albumin Level 4.2 g/dL 02/12/2023 12:29 EST Bilirubin Total 0.4 mg/dL 02/12/2023 12:29 EST Lactic Acid Lvl 4.1 mmol/L 02/12/2023 12:29 EST Troponin-I <5.0 pg/mL 02/12/2023 12:29 EST Employed in healthcare? Unknown 02/12/2023 12:29 EST Symptomatic as defined by CDC? Unknown 02/12/2023 12:29 EST Hospitalized due to COVID-19? No 02/12/2023 12:29 EST In ICU? No 02/12/2023 12:29 EST Group care resident? No 02/12/2023 12:29 EST status? Not 02/12/2023 12:29 EST SARS-CoV-2(Covid19)PCR(GXpert COVFLURSV) NEGATIVE 02/12/2023 12:29 EST Flu A (GXpert COVFLURSV) NEGATIVE 02/12/2023 12:29 EST Flu B (GXpert COVFLURSV) Neg-GeneXPert 02/12/2023 12:29 EST RSV (GXpert COVFLURSV) Neg-GeneXPert 02/12/2023 12:29 EST Patient/Jitterbug Operator Signature Patient Name:CODY COBOS I have received this information and my questions have been answered. Patient/Jitterbug Operator Name: Patient/Jitterbug Operator Signature: Relationship to Patient: Witness Name/Signature: Date: Electronically Signed on: 02/12/2023 14:46 ESTSigned by:AMS Discharge summary * Christina De La Paz: PERFORM Event Display: Discharge Note Authored Date: * Christina De La Paz: PERFORM Event Display: Discharge Note Authored Date: Diagnosis: 1. Cough Comment: Diagnosis: SOB - Shortness of breath Comment: Additional Orders: Comment: Other status: CV EKG ED,02/12/23 12:19:00 EST, Routine, Reason: Dyspnea, Stop date and time 02/12/23 12:19:00 EST, ORD_SET_REQ_DT_RANGE, [facility] Internal Person Id(Complete) Electronically Signed on 02/12/23 03:00 PM Christina De La Paz Patient Care team information Care Team Personnel Name: Dina Diaz Position: Physician Member Role: Informed Provider Address: Address: [address] Name: Dimitris Pandey RN Position: Nurse Member Role: ED Nurse Name: Cheryl Roy MD Position: Physician Member Role: ED Physician Address: Address: [address] [place] [address] Care Team Related Persons Name: EMY COBOS Address: Home [address] [place], [place] [id number]
--- OUTSIDE RECORDS SUMMARY | 2023-10-04 01:04 | XMS_ITS | Encounter Summary ---
Author Organization [facility] Address [address] [place] [address] Care Team Providers Care Helmet Binder Name Role Phone Unknown, Provider Primary Care Provider [phone] Taylor Peña MD Unavailable [phone] Encounter Details Date Type Department Care Team (Late st Contact Info) Description 06/05/2020 Lab Requisition [facility] Pathology & Laboratory Medicine - [facility] [address] [place] [address] Outr Resulting Lab, Provider Social History Tobacco Use Types Packs/Day Years Used Date Smoking Tobacco: Never Alcohol Use Standard Drinks/Week Comments Yes 0 (1 standard drink = 0.6 oz pur e alcohol) occ Interpersonal Safety Answer Date Record ed Physically Hurt Never 05/06/2020 Verbally Threaten Not on file 05/06/2020 Sex and Gender Information Value Date Recorded Sex Assigned at Female 05/26/2021 17:11 EDT Gender Identity Female 05/26/2021 17:11 EDT Sexual Orientation Not on file documented as of this encounter Plan of Treatment Not on file documented as of this encounter Procedures Procedure Name Priority Date/Time Associated Diagnosis Comments ZZCOVID-19 TEST [facility] PCR Today 06/05/2020 10:09 EDT COVID-19 TESTING Routine 06/05/2020 10:0 9 EDT documented in this encounter Results * COVID-19 TEST [facility] PCR (06/05/2020 10:09 EDT) Swab ENTIRE NASOPHARYNX / Unknown 06/05/2020 10:09 EDT 06/05/2020 16:58 EDT Provider Outr Resulting Lab MICROBIOLOGY - GENERAL ORDERABLES [facility] [address] [place] [address] * COVID-19 TESTING (06/05/2020 10:09 EDT) COVID-19 rt-PCR Result Negative Negative 06/06/2020 13:38 EDT [facility] Comment: This test has not been FDA cleared or approved. This test has been authorized by FDA under an EUA for use by authorized laboratories. This test has been authorized only for detection of nucleic acid from 2019-nCoV, not for any other viruses or pathogens. This test is only authorized for the duration of the declaration that circumstances exist justifying the authorization of emergency use of in vitro diagnostic tests for detection and/or diagnosis of 2019-nCoV under section 564(b)(1) of Act, 21 U.S.C ?? 360bbb-3(b) (1), unless the authorization is terminated or revoked sooner. Negative results do not preclude 2019-nCoV infection and should not be used as the sole basis for treatment or other patient management decisions. Negative results must be combined with clinical observations, patient history, and epidemiological information. Testing was performed using the aliya SARS-CoV-2 assay ([employer] on the Aliya 6800 System Performing Lab Aliya [address] [facility] 06/06/2020 13:38 EDT [facility] Swab 06/05/2020 10:0 9 EDT 06/05/2020 16:58 EDT Provider Outr Resulting Lab MICROBIOLOGY - GENERAL ORDERABLES [facility] [address] [place] [address] documented in this encounter Visit Diagnoses Not on filedocumented in this encounter Care Teams Helmet Binder Relationship Specialty Start Date End Date Unknown, Provider, PCP - General 02/28/20 Taylor Peña MD [address] [place] [address] 02/28/20 documented as of this encounter
--- OUTSIDE RECORDS SUMMARY | 2023-10-04 01:04 | XMS_ITS | Encounter Summary ---
Author Organization [facility] Address [address] [place] [address] Care Team Providers Care Solar Energy Systems Engineer Name Role Phone Tracey Butler NP Primary Care Provider Taylor Quevedo MD Primary Care Provider [phone] Encounter Details Date Type Department Care Team (Late st Contact Info) Description 07/29/2013 Historical Results Only [facility] - Main [place] [address] [place] [address] Yasmin Crain, DO [address] [place], [place] [id number] Social History Tobacco Use Types Packs/Day Years Used Date Smoking Tobacco: Never Assessed Sex and Gender Information Value Date Recorded Sex Assigned at Female 05/26/2021 17:11 EDT Gender Identity Female 05/26/2021 17:11 EDT Sexual Orientation Not on file documented as of this encounter Plan of Treatment Not on file documented as of this encounter Procedures Procedure Name Priority Date/Time Associated Diagnosis Comments PAP TEST Routine 07/29/2013 15:59 EDT documented in this encounter Results * PAP TEST (07/29/2013 15:59 EDT) 07/29/2013 15:5 9 EDT 07/30/2013 15:58 EDT Narrative [facility] - 08/02/2013 17:05 EDT ----- ------- Name: FERRARODILEEP MANZANARESA ? : 72 ?Age/Sex: 48/F ?Unit#: [id number] ? Loc: [facility] ? Status: REG REF ?? Reg Date: 07/29/13 ? Pt.Phone Number: ? ----- ------- Specimen: [id number] ?STATUS: SOUT ?Spec Date:07/29/13 ? Physician Copies: ?Shandra Crain Tissues: ? Cervical/Endo Pap ? CPT: 14554 ?? Units: ??1 ----- ------- ? CYTOLOGY DIAGNOSIS SPECIMEN ADEQUACY: ?Satisfactory for evaluation. Transformation zone component present. GENERAL CATEGORIZATION: ?Epithelial Cell Abnormality. DESCRIPTIVE DIAGNOSIS: ?Squamous Cell Abnormality - ??Low grade squamous intraepithelial lesion (LSIL). RECOMMENDATIONS/COMMENTS: ??Recommend following the Updated consensus guidelines algorithms for managing abnormal cervical cancer screening tests and cancer precursors Management algorithms have been distributed and are also available online at www.ASCCP.org/consensus.shtml. RARE LSIL WITH KOILOCYTOSIS. ----- ------- ?HPV DNA RESULTS ?? 07/29/13 1559 HPV DNA RESULT ??POS ? Positive for one or more of HPV types 16, 18, 31, 33, 35, ? 39, 45, 51, 52, 56, 58, 59, 66, or 68. ? Method: [employer] HPV HR (High Risk) DNA test. ----- ------- ORDER QUERIES: LMP: ? - 04/2013 ? Post ?PREVIOUS ATYPICAL: ?? BCP/HRT? ?? Rad Rx? ?? IUD?PAP PLUS HPV? Y ??REFLEX TO HR-HPV IF ASCUS ?? REFLEX TO HPV 16/18 IF HPV POS/PAP NEG Y HPV REGARDLESS?RFLX HPV IF LSIL ?? Signed ____(signature on file)____ Kerry Marinelli M.D. 08/02/13 By the signature above, the attending physician certifies that he/she has personally conducted a gross and/or microscopic examination of the described specimens and rendered or confirmed the above diagnosis. Test Performed by , [address] [place] [address] Recreational Vehicle Repairer: Kerry Marinelli MD PHD ----- ------- Yasmin Crain DO PATHOLOGY OR DERABLES [facility] documented in this encounter Visit Diagnoses Not on filedocumented in this encounter Care Teams Solar Energy Systems Engineer Relationship Specialty Start Date End Date Tracey Butler NP PCP - General 08/08/08 08/12/13 Taylor Peña MD [address] [place] [address] PCP - General 08/13/13 02/27/20 documented as of this encounter
--- OUTSIDE RECORDS SUMMARY | 2023-10-04 01:04 | XMS_ITS | Referral Summary ---
Author Organization [facility] Address [address] [place] [address] Care Team Providers Care Casino Manager Name Role Phone Unknown, Provider Primary Care Provider Taylor Peña MD Unavailable [phone] Encounters Date Type Department Care Team Description 08/25/2023 Lab Requisition [facility] Pathology & Laboratory Medicine - [facility] [address] [place] [address] Outr Resulting Lab, Provider from Last 3 Months Allergies Active Allergy Reactions Criticality Noted Date Comments Aripiprazole 08/19/2013 Amitriptyline 08/19/2013 Morphine 08/19/2013 Oxycodone-Acetaminophen 08/19/2013 Soy 08/19/2013 Tree Nuts 02/23/2015 Hydrocodone-Acetaminophen 08/19/2013 Medications Medication Sig Dispensed Refills Start Date End Date Status fexofenadine (PAULIE) 180 mg tablet Take 180 mg by mouth daily. Active DULoxetine (CYMBALTA) 60 mg capsule Take 60 mg by mouth daily. Active mometasone (NASONEX) 50 mcg/actuation nasal spray 2 Sprays by nasal route daily. Active lamoTRIgine (LAMICTAL) 100 mg tablet Take 100 mg by mouth daily. Active traMADol (ULTRAM) 50 mg tablet Take 50 mg by mouth every 6 hours. Active traZODone (DESYREL) 100 mg tablet Take 100 mg by mouth daily. Active EPINEPHRINE (EPIPEN INJECTION) Inject as directed. Activ e CYCLOBENZAPRINE HCL (FLEXERIL ORAL) Take by mouth as needed. Active divalproex ER (DEPAKOTE ER) 250 mg tablet Take 500 mg by mouth daily. Active HYDROmorphone (DILAUDID) 2 mg tablet Take 1 Tab by mouth every 4 hours as needed for Pain. Earliest Fill Date: 01/30/14 20 Tab 0 01/30/2014 Active Additional Information Patient not taking.Reported on 09/01/2020 montelukast (SINGULAIR) 10 mg tablet Take 10 mg by mouth at bedtime. 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 LPRD (laryngopharyngeal reflux disease) 08/21/19 14 Social History Tobacco Use Types Packs/Day Years Used Date Smoking Tobacco: Never Smokeless Tobacco: Never Alcohol Use Standard Drinks/Week Comments Yes 0 (1 standard drink = 0.6 oz pur e alcohol) occ Interpersonal Safety Answer Date Record ed Physically Hurt Never 05/06/2020 Verbally Threaten Not on file 05/06/2020 Sex and Gender Information Value Date Recorded Sex Assigned at Female 05/26/2021 17:11 EDT Gender Identity Female 05/26/2021 17:11 EDT Sexual Orientation Not on file Last Filed Vital Signs Vital Sign Reading Time Taken Comments Blood Pressure 104/61 01/30/2014 1306 EST Pulse 110 01/30/2014 1306 EST Temperature - - Respiratory Rate - - Oxygen Saturation - - Inhaled Oxygen Concentration - - Weight 81.6 kg (180 lb) 01/30/2014 1306 EST Height 167.6 cm (5' 6) 01/30/2014 1306 EST Body Mass Index 29.05 01/30/2014 1306 EST Functional Status Functional Status Response Date of Assess ment Because of a physical, menta l, or emotional condition, does this person have difficulty doing errands alone such as visiting a doctor's office or shopping? No 09/01/2020 Cognitive Status Response Date of Assessm ent Because of a physical, menta l, or emotional condition, does this person have serious difficulty concentrating, remembering, or making decisions? Yes 09/01/2020 Plan of Treatment Not on file Procedures Procedure Name Priority Date/Time Associated Diagnosis Comments FSH Routine 08/25/2023 7:31 EDT HEPATITIS C AB W REFLEX TO HCV RNA BY PCR Routine 03/14/2008 17:36 EST from Last 3 Months or Most Recently Relevant to Health Maintenance Results * FSH (08/25/2023 7:31 EDT) FSH 90.8 See Note mIU/mL 08/25/2023 22:56 EDT [facility] Blood VENOUS BLOOD / Unknown 08/25/2023 7:31 EDT 08/25/2023 22:02 EDT Narrative [facility] - 08/25/2023 22:56 EDT NOTE: Female FSH Reference Ranges (Menstruating): PHYSIOLOGICAL STATUS ? REFERENCE RANGE ? Follicular (-12 to -4 days): ?? 2.5 - 10.2 mIU/mL Midcycle (-3 to +2 days): ?3.4 - 33.4 mIU/mL Luteal (+4 to +12 days): ? 1.5 - 9.1 mIU/mL Postmenopausal: ?23.0 - 116.3 mIU/mL Reference Ranges for pediatric non-menstruating female patients have not been established. Provider Outr Resulting Lab CHEMISTRY & BLOOD GAS ORDERABLES [facility] [address] [place], [place] [id number] * HEPATITIS C ANTIBODY (03/14/2008 17:36 EST) Hepatitis C Ab Negative Reference Range: ??Negative [facility] 03/14/2008 17:3 6 EST 03/14/2008 21:39 EST Provider Unknown MD CHEMISTRY & BLOOD GA S ORDERABLES [facility] [address] [place] [address] from Last 3 Months or Most Recently Relevant to Health Maintenance Care Teams Casino Manager Relationship Specialty Start Date End Date Unknown, Provider, PCP - General 02/28/20 Taylor Peña MD [address] [place], [place] [id number] 02/28/20
--- OUTSIDE RECORDS SUMMARY | 2023-10-04 01:04 | XMS_ITS | Encounter Summary ---
Author Organization [facility] Address [address] [place] [address] Care Team Providers Care Felled Seam Operator Chainstitch Name Role Phone Taylor Mejia MD Primary Care Provider +1- [phone] Encounter Details Date Type Department Care Team (Late st Contact Info) Description 08/19/2013 Historical Results Only [facility] Lab - Main [place] [address] [place], [place] [id number] Yasmin Crain, DO [address] [place] [address] Social History Tobacco Use Types Packs/Day Years Used Date Smoking Tobacco: Never Assessed Sex and Gender Information Value Date Recorded Sex Assigned at Female 05/26/2021 17:11 EDT Gender Identity Female 05/26/2021 17:11 EDT Sexual Orientation Not on file documented as of this encounter Plan of Treatment Not on file documented as of this encounter Procedures Procedure Name Priority Date/Time Associated Diagnosis Comments SURGICAL PATHOLOGY Routine 08/19/2013 16 :30 EDT documented in this encounter Results * SURGICAL PATHOLOGY (08/19/2013 16:30 EDT) 08/19/2013 16:3 0 EDT 08/20/2013 10:45 EDT Narrative [facility] - 08/21/2013 14:58 EDT ----- ------- Name: CODY FERRARO ? : 72 ?Age/Sex: 48/F ?Unit#: [id number] ? [facility] ? Status: REG REF ?? Reg Date: 08/19/13 ? Pt.Phone Number: ? ----- ------- Specimen: [id number] ? STATUS: SOUT ?Spec Date:08/19/13 ? Physician Copies: ?Shandra Crain Tissues: A ?? Female Reproductive System (CERVIX @ 6 O'CLOCK) ?TAYLOR MEJIA ? B ?? Female Reproductive System (CERVIX @ 11 O'CLOCK) ? C ?? Female Reproductive System (ENDOCERVIX) ? CPT: 06266 ?? Units: ??3 ?FINAL DIAGNOSIS ? A. Cervix, 6 o'clock, biopsy; ? - Low grade squamous intraepithelial lesion (REINA I). ? B. Cervix, 11 o'clock, biopsy; ? - Squamous mucosa with no pathologic features. ? C. Endocervix, curettage; ? - Benign endocervical tissue. ----- ------- ?COMMENT ? Biopsy findings correlate with the referring LSIL Pap ([id number]). ? GROSS DESCRIPTION ? A. Received in formalin labeled with the patient's name and 6 o'clock is ? an irregular pink-archer soft tissue fragment 0.4 cm in greatest dimension. ??e.s. ? B. Received in formalin labeled with the patient's name and 11 o'clock is ? a 0.3 cm pink-archer soft tissue fragment. ??e.s. ? C. Received in formalin labeled with the patient's name and ECC is a red-archer ? mucoid aggregate of soft tissue fragments 1.3 x 1.3 x 0.1 cm. ??e.s. ??RM ?? PREOP DX/CLINICAL HISTORY ?LSIL/HPV Signed ____(signature on file)____ Kerry Marinelli M.D. 08/21/13 By the signature above, the attending physician certifies that he/she has personally conducted a gross and/or microscopic examination of the described specimens and rendered or confirmed the above diagnosis. Test Performed by [facility], [address] [place] [id number] Special Officer: Kerry Marinelli MD PHD ----- ------- Yasmin Crain DO PATHOLOGY OR DERABLES Performing Organization Address City/State/[facility] Co de Phone Number [facility] documented in this encounter Visit Diagnoses Not on filedocumented in this encounter Care Teams Felled Seam Operator Chainstitch Relationship Specialty Start Date End Date Taylor Mejia MD [address] [place] [address] PCP - General 08/13/13 02/27/20 documented as of this encounter
--- OUTSIDE RECORDS SUMMARY | 2023-10-04 01:04 | XMS_ITS | Continuity of Care Document ---
Author Organization [facility] Address [address] [place] [address] Care Team Providers Care Wool Sacker Name Role Phone Emily Dina C Primary Care Physician Encounter [facility] [id number] Date(s): 08/21/23 - 08/21/23 [facility] [address] [place] [address] Discharge Disposition: Home Allergies, Adverse Reactions, Alerts Substance Reaction Severity Status SOY Unknown Active WHEAT Unknown Active SHELLFISH DERIVED Anaphylactic reaction Severe A ctive codeine Unknown Active amitriptyline Unknown Active morphine Unknown Active Roxicet Unknown Unknown Active Provigil [...] Active Latex 5 no reaction Unknown Active DilTIAZem (Eqv-Cardizem CD) Unknown Unknown Active rimegepant Eruption Severe Active dilTIAZem Depression Chest pain Moderate Active [...] Recorded 1Result Comment: betzaida 2Result Comment: betzaida [facility] 3Result Comment: Tunnel Heading Inspector: Credoraxine 4Result Comment: Tunnel Heading Inspector: Sanofi Pasteur Medications acetaminophen 325 mg oral tablet 650 mg = 2 tab, Oral, every 4 hr, PRN other (see comment), as needed, 0 Refill(s) Start Date: 07/08/21 Status: Ordered atorvastatin 20 mg oral tablet 1 tab, Oral, every morning, # 90 tab, 3 Refill(s), Pharmacy: [id number], 165, cm, 02/12/23 [...] needed, # 1 EA, 0 Refill(s), Pharmacy: [facility] 4156, 165.1, cm, 04/26/23 9:23:00 EST, Height, 66.85, kg, 05/22/23 15:26:00 EDT, Weight Dosing Start Date: 06/27/23 Status: Ordered hydrOXYzine hydrochloride 25 mg oral tablet 25 mg = 1 tab, Oral, As Directed, PRN insomnia/anxiety, take 1 tab at bedtime prn, # 90 tab, 1 Refill(s), 04/26/24 8:37:00 AM CATCHER PLUG, Pharmacy: [facility], 165.1, cm, 04/26/23 [...] meds as of . Lamictal 100mg BID. [place] ER 450mg 1 1/2 tabs qhs. 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 We discussed trial of naltrexone for her chronic pain. Naltrexone 1-4.5 mg qd. Would need to send rx to compounding pharmacy in [place]. Reviewed MOA, side effects. 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 Requested WILLOW [...] Member Role: Informed Provider Address: Address: [facility] [place] [address]- [place] Care Team Related Persons Name: EMY COBOS Address: [address], [id number] Name: EMY COBOS Address: [address] [id number]
--- OUTSIDE RECORDS SUMMARY | 2023-10-04 01:04 | XMS_ITS | Encounter Summary ---
Author Organization [facility] Address [address] [place] [address] Care Team Providers Care Material Distributor Name Role Phone Taylor Peña MD Primary Care Provider [phone]- [phone] Encounter Details Date Type Department Care Team (Late st Contact Info) Description 08/19/[address] [address] [place] [address] [place] [address] Social History Tobacco Use Types Packs/Day Years Used Date Smoking Tobacco: Never Assessed Sex and Gender Information Value Date Recorded Sex Assigned at Female 05/26/2021 17:11 EDT Gender Identity Female 05/26/2021 17:11 EDT Sexual Orientation Not on file documented as of this encounter Plan of Treatment Not on file documented as of this encounter Visit Diagnoses Not on filedocumented in this encounter Historical Medications * This list may reflect changes made after this encounter. Medication Sig Dispensed Refills Start Date End Date traMADol (ULTRAM) 50 mg tablet Take 50 mg by mouth every 6 hours. lamoTRIgine (LAMICTAL) 100 mg tablet Take 100 mg by mouth daily. mometasone (NASONEX) 50 mcg/actuation nasal spray 2 Sprays by nasal route daily. DULoxetine (CYMBALTA) 60 mg capsule Take 60 mg by mouth daily. fexofenadine (PAULIE) 180 mg tablet Take 180 mg by mouth daily. added in this encounter Care Teams Material Distributor Relationship Specialty Start Date End Date Taylor Peña MD [address] [place] [address] PCP - General 08/13/13 02/27/20 documented as of this encounter
--- OUTSIDE RECORDS SUMMARY | 2023-10-04 01:04 | XMS_ITS | Encounter Summary ---
Author Organization [facility] Address [address] [place] [address] Care Team Providers Care Metal Sheet Roller Operator Name Role Phone Unknown, Provider Primary Care Provider Taylor Peña MD Unavailable [phone] Encounter Details Date Type Department Care Team (Late st Contact Info) Description 05/01/2020 Lab Requisition [facility] Pathology & Laboratory Medicine - [address] [address] Harper Hadley MD [address] [place] [id number] Encounter for other general examination Social History Tobacco Use Types Packs/Day Years [...] Priority Date/Time Associated Diagnosis Comments SURGICAL PATHOLOGY Today 05/01/2020 10 :35 EST documented in this encounter Results * SURGICAL PATHOLOGY (05/01/2020 10:35 EST) Final Diagnosis A. 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 - Cervix: - No specific pathologic features. - Serosa: - No specific pathologic features. - Fallopian tubes, bilateral: - Hydrosalpinx, otherwise no specific pathologic features. 05/06/2020 10:37 [facility] Attestation By the signature below, the attending physician certifies that they have 1) personally conducted a gross and/or microscopic examination of the described specimen(s), and/or personally interpreted the results of laboratory testing of the described specimen(s), and 2) personally rendered or confirmed the above diagnosis. 05/06/2020 10:37 [facility] at 1037 Clinical History Pelvic pain 05/06/2020 10:37 [facility] Gross Description A. Received in formalin labelled with proper patient identification (initials D, L) and uterus, cervix, B/L tubes is an intact uterus and cervix (102.0 g, 8.0 cm fundus to cervix x 5.5 cm cornu to cornu x 4.3 cm anterior to posterior) and detached fimbriated ligated fallopian tubes (4.2 cm in combined length, ranging from 0.6 cm to 0.8 cm in diameter; 4.4 cm in combined length, ranging from 0.8 cm to 1.0 cm in diameter). The ovaries are not present. The uterine serosa is archer-brown to purple with several defects (0.2 cm to 3.0 cm in greatest dimension) that do not extend into the myometrium or endometrial canal. The ectocervix is smooth, bonner-white with a central slit like os. The uterus is bivalved to reveal a archer-white furrowed endocervical canal and a white-archer scarred 0.2 cm thick endometrium, consistent with prior ablation. The myometrium is archer-white and coarsely trabeculated with a 2.2 cm maximum thickness. Two well-circumscribe d submucosal nodules (0.7 cm and 0.9 cm in greatest dimension) are identified within the myometrium, having archer-white whorled cut surfaces without hemorrhagic areas or necrosis. The bilateral fallopian tubes have smooth, archer to bonner-purple serosal surfaces. Sectioning of the tubes reveals archer-white cut surfaces with lumina ranging from pinpoint to 0.6 cm in diameter. The dilated portions contain clear archer serous fluid. No lesions are identified. Luncheonette Operator sections are submitted as follows: BLOCK JOHNSON A1- anterior cervix A2- posterior cervix A3- anterior endomyometrium including serosal defects A4- posterior endomyometrium A5- nodules A6- entire fimbria of shorter tube A7- cross-sections of shorter tube A8- entire fimbria of longer tube A9- cross-sections of longer tube THANIA REHMAN(ASCP) 05/04/2020 11:03 05/06/2020 10:37 EST [facility] Performing Lab [facility] 05/06/2020 10:37 EST [facility] Scanned Images 05/06/2020 10:37 EST [facility] Tissue SPECIMEN FROM UTERUS / Unknown 05/01/2020 10:35 EST 05/04/2020 7:21 EST Harper Hadley MD PATHOLOGY ADOLPH TIJERINA Performing Organization Address City/State/[facility] Co de Phone Number [facility] [address] [place] [address] documented in this encounter Visit Diagnoses Diagnosis Encounter for other general examination documented in this encounter Care Teams Metal Sheet Roller Operator Relationship Specialty Start Date End Date Unknown, Provider, PCP - General 02/28/20 Taylor Peña MD [address] [place] [address] 02/28/20 documented as of this encounter
--- OUTSIDE RECORDS SUMMARY | 2023-10-04 01:04 | XMS_ITS | Continuity of Care Document ---
Author Organization [facility] Address [address] [place] [address] Care Team Providers Care Resort Housekeeper Name Role Phone Karissarosalie Dina Kinza Primary Care Physician Encounter [facility] [id number] Date(s): 08/17/22 - 08/17/22 [facility] [address] [place] [address] Discharge Disposition: Home or Self Care Attending Physician: Lucía Hoover TERRITORY OUTSIDE SALES MANAGER Admitting Physician: Lucía Hoover NP Referring Physician: Lucía Hoover TERRITORY OUTSIDE SALES MANAGER Allergies, Adverse Reactions, Alerts Substance Reaction Severity Status SOY Unknown Active WHEAT Unknown Active SHELLFISH DERIVED Anaphylactic reaction Severe A ctive codeine Unknown Active metoprolol 1 Depression Unknown Active amitriptyline Unknown Active morphine Unknown Active acetaminophen-oxycodone Unknown Unknown Acti ve modafinil 2 runny nose Difficulty swallowing Other Unknown Active armodafinil 3 Other Unknown Active Provigil Unknown Unknown Active oxyCODONE Unknown Active HYDROcodone Unknown Unknown Active ARIPiprazole Unknown Active Tree Nuts Unknown Unknown Active Peanuts Unknown Active Latex 4 no reaction Unknown Active dilTIAZem Depression Chest pain Moderate Active TREE AND SHRUB POLLEN 5 Unknown Acti ve imipramine Unknown Unknown Active acetaminophen-hydrocodone Unknown Unknown Ac tive Roxicet Unknown Unknown Active rimegepant Eruption Severe Active DilTIAZem (Eqv-Cardizem CD) Unknown Unknown Active 1depression 2Excessive runny nose and hard to swallow. 3Excessive runny nose and hard to swallow. 4immunotherapy 5per AllScripts Assessment and Plan Future Appointments Future Scheduled [...] immune globulin 06/05/07 Recorded 1Result Comment: betzaida [facility] 2Result Comment: Combination Machine Tool Setter: GlaxNeuraithScoreGridine 3Result Comment: Combination Machine Tool Setter: Sanofi Pasteur Medications acetaminophen 325 mg oral tablet 650 mg = 2 tab, Oral, every 4 hr, PRN other (see comment), as needed, 0 Refill(s) Start Date: 07/08/21 Status: Ordered atorvastatin 20 mg oral tablet 20 mg = 1 tab, Oral, every morning, # 90 EA, 3 Refill(s), Pharmacy: [id number], 165, cm,08/14/21 10:33:00 EDT, [...] spasm, # 30 tab, 0 Refill(s), Pharmacy: [facility], 165, cm, 03/28/22 10:18:00 [...] hr, # 30 tab, 0 Refill(s), Pharmacy: [facility], 165, cm, 03/28/22 10:18:00 EST, Height/Length Dosing, 62, kg, 03/28/22 10:18:00 EST, Weight Dosing Start Date: 03/28/22 Status: Ordered Nurtec ODT 75 mg oral tablet, disintegrating 0 Refill(s) Start Date: 08/16/22 Status: Ordered prochlorperazine 10 mg oral tablet 10 mg = 1 tab, Oral, every 8 hr, PRN other (see comment), as needed per [facility] headache clinic Start Date: 07/08/21 Status: Ordered traZODone 100 mg oral tablet See Instructions, TAKE 1 TABLET BY MOUTH ONCE DAILY AT BEDTIME, # 90 tab, 0 Refill(s), Pharmacy: [id number], 165, cm, 04/12/22 13:34:00 [...] meds as of . Lamictal 100mg BID. [place] ER 450mg 1 1/2 tabs qhs. cymbalta [...] prior to sleep studies. see narcolepsy section [facility] 12-14-2020 visit: Medications trialed and unable to tolerate TCAs, duloxetine, gabapentin, lyrica, cyclobenzaprine. She has seen rheumatology . 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 We discussed trial of naltrexone for her chronic pain. Naltrexone 1-4.5 mg qd. Would need to send rx to compounding pharmacy in [place]. Reviewed MOA, side effects. She would also like to get involved in resistance band training. >50% of this 40 minute appointment was spent in face to face counseling. [facility] visit: S/P LT partial thyroidectomy. TSH annually. She is not on thyroid replacement. [facility] 11-[facility]-2020 visit: Has been on atorvastatin 20 mg qd since 10/2019. She is tolerating well. Repeat FLP and CMP. 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 Requested [facility] records to review. [...] repair 09/2009 Results Laboratory List Name Date Comprehensive Metabolic Panel (CMP) 08/17 Free T4 08/17/22 Hemoglobin A1c 08/17/22 Lipid Panel 08/17/22 Thyroid Stimulating Hormone (TSH) 3 Most recent to oldest [Reference Range]: 1 BUN [7-18 mg/dL] 22 mg/dL *HI* (08/17/22 8:26 AM) Cholesterol Total [50-200 mg/dL] 164 mg/ dL (08/17/22 8:26 AM) LDL [0-130 mg/dL] 66 mg/dL (08/17/22 8:26 AM) Glucose Level [74-106 mg/dL] 100 mg/dL (08/17/22 8: AM) Potassium Level [3.5-5.1 mmol/L] 4.1 mmo l/L (08/17/22: AM) HDL [40-60 mg/dL] 85 mg/dL *HI* (08/17/22: AM) T4 Free [0.76-1.46 ng/dL] 0.81 ng/dL (08/17/22: AM) AST [15-37 unit/L] 9 unit/L *LOW* (08/17/22: AM) ALT [14-59 unit/L] 21 unit/L (08/17/22: AM) Sodium Level [136-145 mmol/L] 135 mmol/L *LOW* (08/17/22: AM) Triglycerides [0-150 mg/dL] 63 mg/dL (08/17/22: AM) Calcium Level [8.5-10.1 mg/dL] 9.1 mg/dL (08/17/22: AM) Albumin Level [3.4-5.0 g/dL] 4.0 g/dL (08/17/22: AM) Protein Total [6.4-8.2 g/dL] 7.3 g/dL (08/17/22: AM) Bilirubin Total [0.2-1.0 mg/dL] 0.5 mg/d L (08/17/22: AM) Alk Phos [46-146 unit/L] 69 unit/L (08/17/22: AM) CO2 [21-32 mmol/L] 30 mmol/L (08/17/22:26 AM) TSH [0.358-3.740 mcIntlUnit/mL] 1.557 mc IntlUnit/mL (08/17/22:26 AM) eGFR Non-AA [>=60] 107 (08/17/22 8:26 AM) eGFR AA [>=60] 107 (08/17/22 8:26 AM) Hemoglobin A1c [4.0-6.0 %] 5.4 % (6/21/23 8:26 AM) Chloride Level [98-107 mmol/L] 100 mmol/ L (08/17/22 8:26 AM) Creatinine Level [0.55-1.02 mg/dL] 0.63 mg/dL (08/17/22 8:26 AM) Social History Social History Type Response Smoking Status Smoking tobacco use: Never tobacco user;Never 1 entered on: 08/16/22 Sex Female 1How much tobacco do you chew: none What was the date of your most recent tobacco screenin05-25-2021 Patient Care team information Care Team Personnel Name: Dina Diaz Position: Physician Member Role: Informed Provider Address: Address: [facility] [address] [address]- Care Team Related Persons Name: EMY COBOS Address: Home Name: EMY COBOS Address: [address] [id number] Name: AMARIS DE LA FUENTE Address: Home
--- OUTSIDE RECORDS SUMMARY | 2023-10-04 01:04 | XMS_ITS | Encounter Summary ---
Author Organization [facility] Address [address] [place] [address] Care Team Providers Care Pipe Organ Builder Name Role Phone Taylor Peña MD Primary Care Provider +1- [phone] Encounter Details Date Type Department Care Team (Latest Contact Info) Description 09/03/2013 12:45 EDT - 09/03/2013 23:59 EDT Hospital Encounter [address] [address] Unknown, Provider, Discharge Disposition: Home or Self Care Social History Tobacco Use Types Packs/Day Years Used Date Smoking Tobacco: Never Alcohol Use Standard Drinks/Week Comments Yes 0 (1 standard drink = 0.6 oz pur e alcohol) occ Sex and Gender Information Value Date Recorded Sex Assigned at Female 05/26/2021 17:11 EDT Gender Identity Female 05/26/2021 17:11 EDT Sexual Orientation Not on file documented as of this encounter Medications at Time of Discharge Medication Sig Dispensed Refills Start Date End Date DULoxetine (CYMBALTA) 60 mg capsule Take 60 mg by mouth daily. EPINEPHRINE (EPIPEN INJECTION) Inject as directed. fexofenadine (PAULIE) 180 mg tablet Take 180 mg by mouth daily. lamoTRIgine (LAMICTAL) 100 mg tablet Take 100 mg by mouth daily. mometasone (NASONEX) 50 mcg/actuation nasal spray 2 Sprays by nasal route daily. traMADol (ULTRAM) 50 mg tablet Take 50 mg by mouth every 6 hours. traZODone (DESYREL) 100 mg tablet Take 100 mg by mouth daily. LITHIUM CARBONATE ORAL Take by mouth. documented as of this encounter Discharge Disposition Disposition Code Departure Means Destination Home or Self [facility] documented in this encounter Plan of Treatment Not on file documented as of this encounter Visit Diagnoses Not on filedocumented in this encounter Care Teams Pipe Organ Builder Relationship Specialty Start Date End Date Taylor Peña MD [address] [place] [address] PCP - General 08/13/13 02/27/20 documented as of this encounter
--- OUTSIDE RECORDS SUMMARY | 2023-10-04 01:04 | XMS_ITS | Encounter Summary ---
Author Organization [facility] Address [address] [place] [address] Care Team Providers Care Television Newscast Director Name Role Phone Taylor Peña MD Primary Care Provider [phone]- [phone] Unknown, Provider Primary Care Provider Taylor Peña MD Unavailable [phone] Encounter Details Date Type Department Care Team (Late st Contact Info) Description 11/03/2019 Lab Requisition [facility] Pathology & Laboratory Medicine - [facility] [address] [place] [address] Outr Resulting Lab, Provider Social History Tobacco [...] Procedure Name Priority Date/Time Associated Diagnosis Comments ANTI NUCLEAR AB (SHERIDAN), IFA Routine 11/03/2019 8:52 EDT documented in this encounter Results * ANTI NUCLEAR AB (SHERIDAN), IFA (11/03/2019 8:52 EDT) SHERIDAN Interpretation Negative Negative 2019 14:38 EDT [facility] Blood VENOUS BLOOD / Unknown 11/03/2019 8:52 EDT 11/03/2019 16:13 EDT Narrative [facility] - 11/04/2019 14:38 EDT Results were obtained with the INOVA NOVA Lite HEp-2 SHERIDAN Kit by indirect immunofluorescence. Provider Outr Resulting Lab IMMUNOLOGY A ND SEROLOGY ORDERABLES Performing Organization Address City/State/[facility] Co de Phone Number [facility] [address] [place] [address] documented in this encounter Visit Diagnoses Not on filedocumented in this encounter Care Teams Television Newscast Director Relationship Specialty Start Date End Date Taylor Peña MD [address] [place] [address] PCP - General 08/13/13 02/27/20 Unknown, Provider, [address] [place] [address] PCP - General 02/28/20 Taylor Peña MD [address] [place] [address] 02/28/20 documented as of this encounter
--- OUTSIDE RECORDS SUMMARY | 2023-10-04 01:04 | XMS_ITS | Encounter Summary ---
Author Organization [facility] Address [address] [place] [address] Care Team Providers Care Printing Estimator Name Role Phone Tracey Butler NP Primary Care Provider Valdo e Encounter Details Date Type Department Care Team (Latest Contact Info) Description 08/20/2009 9:43 EDT - 08/20/2009 23:59 EDT Hospital En[place] [facility] [place] [phone] Unknown, Provider, Discharge Disposition: Home or Self Care Social History Tobacco Use Types Packs/Day Years Used Date Smoking Tobacco: Never Assessed Sex and Gender Information Value Date Recorded Sex Assigned at Female 05/26/2021 17:11 EDT Gender Identity Female 05/26/2021 17:11 EDT Sexual Orientation Not on file documented as of this encounter Discharge Disposition Disposition Code Departure Means Destination Home or Self Mcfp documented in this encounter Plan of Treatment Not on file documented as of this encounter Procedures Procedure Name Priority Date/Time Associated Diagnosis Comments XR SHOULDER ARTHRO [id number] 08/28/2009 12:41 EDT XR SHOULDR 2OR3V [id number] 08/20/2009 15:25 EDT documented in this encounter Results * XR SHOULDER ARTHRO [id number] (08/28/2009 12:41 EDT) Anatomical Region Laterality Modality Other 08/28/2009 12:4 1 EDT 08/28/2009 14:31 EDT Narrative 08/28/2009 14:31 EDT XR SHOULDER ARTHRO [id number] ??Aug 28, 2009 12:41:00 PM Clinical History/Comments: MR LT SHOULDER ARTHRO Technique: After explaining benefits, risks, and alternatives to the procedure; written and oral consent was obtained. The patient was placed in the supine position on the fluoroscopic table. Following sterile prep and drape of the left shoulder, local anesthesia was administered with 1% lidocaine. Under fluoroscopic guidance, a 22-gauge spinal needle was advanced into the left glenohumeral joint space compartment without incident. Once the position was confirmed with 3 cc of IsoVue-300, ??9 cc of a mixture of gadolinium, epinephrine, and normal saline was injected into the glenohumeral joint space compartment without incident. The patient tolerated the procedure well; no immediate complications were seen. The patient left the department in stable condition. Findings: Positive intraarticular contrast. Impression: Successful fluoroscopic left shoulder arthrogram. MR report to follow. Procedure Note 08/28/2009 XR SHOULDER ARTHRO [id number] Aug 28, 2009 12:41:00 PM Clinical History/Comments: MR LT SHOULDER ARTHRO Technique: After explaining benefits, risks, and alternatives to the procedure; written and oral consent was obtained. The patient was placed in the supine position on the fluoroscopic table. Following sterile prep and drape of the left shoulder, local anesthesia was administered with 1% lidocaine. Under fluoroscopic guidance, a 22-gauge spinal needle was advanced into the left glenohumeral joint space compartment without incident. Once the position was confirmed with 3 cc of IsoVue-300, 9 cc of a mixture of gadolinium, epinephrine, and normal saline was injected into the glenohumeral joint space compartment without incident. The patient tolerated the procedure well; no immediate complications were seen. The patient left the department in stable condition. Findings: Positive intraarticular contrast. Impression: Successful fluoroscopic left shoulder arthrogram. MR report to follow. Franki Wong MD IMG DIAGNOSTIC IMAGI NG ORDERABLES * XR SHOULDR 2OR3V [id number] (08/20/2009 15:25 EDT) Anatomical Region Laterality Modality Other 08/20/2009 15:2 5 EDT 08/20/2009 16:20 EDT Narrative 08/20/2009 16:20 EDT XR SHOULDR 2OR3V [id number] ??Aug 20, 2009 03:25:00 PM Clinical History/Comments: L SHOULDER PAIN, LEFT Comparison: None. Findings: 4 views of the left shoulder were performed. The glenohumeral joint space is preserved. There is mild AC joint narrowing. Alignment is normal. I do not see evidence of fracture. Procedure Note 08/20/2009 XR SHOULDR 2OR3V [id number] Aug 20, 2009 03:25:00 PM Clinical History/Comments: L SHOULDER PAIN, LEFT Comparison: None. Findings: 4 views of the left shoulder were performed. The glenohumeral joint space is preserved. There is mild AC joint narrowing. Alignment is normal. I do not see evidence of fracture. Franki Wong MD IMG DIAGNOSTIC IMAGI NG ORDERABLES documented in this encounter Visit Diagnoses Not on filedocumented in this encounter Care Teams Printing Estimator Relationship Specialty Start Date End Date Tracey Butler NP PCP - General 08/08/08 08/12/13 documented as of this encounter
--- OUTSIDE RECORDS SUMMARY | 2023-10-04 01:04 | XMS_ITS | Encounter Summary ---
Author Organization [facility] Address [address] [place] [address] Care Team Providers Care Coke Wheeler Name Role Phone Taylor Peña MD Primary Care Provider [phone]- [phone] Reason for Visit * Reason Comments Dysphagia a couple years troub le swallowing and painful to swallow now. gradual onset getting progressively worse. pt has goiter with several nodules but dr Barlow has diag all benign. Encounter Details Date Type Department Care Team (Late st Contact Info) Description 08/20/2013 15:00 EDT Office Visit [facility] ENT - [address] [address] Unknown, Provider, Juan Craig MD [address] [address] Laryngeal edema (Primary Dx); LPRD (laryngopharyngeal reflux disease); Dysphagia, unspecified(764.40) Discharge Disposition: Auto Discharge Social History Tobacco Use Types Packs/Day Years Used Date Smoking Tobacco: Never Alcohol Use Standard Drinks/Week Comments Yes 0 (1 standard drink = 0.6 oz pur e alcohol) occ Sex and Gender Information Value Date Recorded Sex Assigned at Female 05/26/2021 17:11 EDT Gender Identity Female 05/26/2021 17:11 EDT Sexual Orientation Not on file documented as of this encounter Last Filed Vital Signs Vital Sign Reading Time Taken Comments Blood Pressure 96/67 08/20/2013 1507 EDT Pulse 95 08/20/2013 1507 EDT Temperature - - Respiratory Rate - - Oxygen Saturation - - Inhaled Oxygen Concentration - - Weight 76.2 kg (168 lb) 08/20/2013 1507 EDT Height 166.4 cm (5' 5.5) 08/20/2013 1507 EDT Body Mass Index 27.53 08/20/2013 1507 EDT documented in this encounter Discharge Disposition Disposition Code Departure Means Destination Auto Discharge documented in this encounter Progress Notes * Juan Craig MD - 08/20/[address] Peña: This is a consult from Margie Peña and Rahel Barlow for evaluation of dysphagia. History of Present Illness: This is a 43-year-old female with a 4 to 5-year history of dysphagia, difficulty swallowing, feeling like pills will get stuck in her throat. She also has a feeling of excess mucus throat clearing. No hoarseness. She was noted to have a multinodular goiter with 1 nodule on the left greater than 1 cm with benign FNA. Her symptoms came on gradual and became worse over time. No known modifying factors, has some associated occasional pain symptoms of moderate severity located in the central portion of the throat, not one side more than the other. Past Medical History: Significant for heartburn and reflux. She also has migraines, sleep apnea andasthma. Previous surgeries include tonsillectomy, UPPP and nasal and sinus surgery. Family history is significant for cancer, allergies, asthma. Social History: The patient is a nonsmoker. She has drug allergies to ABILIFY, AMITRIPTYLINE, MORPHINE, ROXICET, SOY and VICODIN. Current medications include EpiPen, lithium, and trazodone. Review of Systems: Significant for chills, weight loss, weakness, headaches, dizziness, numbness, thyroid problems, light sensitivity, muscle joint and back pain, depression, anxiety, bruising, ear pain, congestion, sore throat, nausea, otherwise negative for complete review of all systems. Physical Exam: General: Well-developed, well-nourished, alert, oriented and cooperative adult female in no acute distress. Normal voice. Vital signs: Height 65-1/2 inches, weight 168, blood pressure 96/67, pulse 95. Pain level 3. The face is normal without lesions, no tenderness. Salivary glands are normal. Facial strength is symmetric. Eye exam is normal. Ears: External ears are normal, canals are clear, partially occluded with cerumen. Tympanic membranes are normal. Hearing is intact bilaterally. Nose: Nasal dorsum is midline, the airway is patent. Oral cavity and posterior pharynx is clear. The patient is status post UPPP. Neck: No pathologic lymphadenopathy. Trachea is midline. Thyroid is normal. Chest is clear to auscultation. Heart: Regular rate and rhythm. Procedure: Fiberoptic endoscopy was performed with topical anesthesia. No evidence of nasal polyps or purulence. Both middle meati are clear. The nasopharynx is clear. The base of tongue, epiglottis,vallecula, piriform sinuses, false vocal cords and true vocal cords are within normal limits with go od bilateral true vocal cord motion. There is moderate posterior laryngeal edema in the interarytenoid and esophageal inlet areas consistent with laryngopharyngeal reflux. Impression: Dysphagia secondary to posterior laryngeal edema and laryngopharyngeal reflux. Plan: LPR instructions were given to the patient and discussed in detail. Consider adding a proton pump inhibitor and H2 gabriel therapy. Instruction material on LPR was given to the patient. Follow up with ENT p.r.n. Sincerely, CC: MD Rahel Kinney MD documented in this encounter Plan of Treatment Not on file documented as of this encounter Visit Diagnoses Diagnosis Laryngeal edema- Primary Edema of larynx LPRD (laryngopharyngeal reflux disease) Other diseases of larynx Dysphagia, unspecified(787.20) Dysphagia, unspecified documented in this encounter Historical Medications * This list may reflect changes made after this encounter. Medication Sig Dispensed Refills Start Date End Date EPINEPHRINE (EPIPEN INJECTION) Inject as directed. traZODone (DESYREL) 100 mg tablet Take 100 mg by mouth daily. LITHIUM CARBONATE ORAL Take by mouth. added in this encounter Care Teams Coke Wheeler Relationship Specialty Start Date End Date Taylor Peña MD [address] [place] [address] PCP - General 08/13/13 02/27/20 documented as of this encounter
--- OUTSIDE RECORDS SUMMARY | 2023-10-04 01:04 | XMS_ITS | Encounter Summary ---
Author Organization [facility] Address [address] [place] [address] Care Team Providers Care Cleaning And Maintenance Worker Name Role Phone Tracey Butler NP Primary Care Provider Valdo isaac Encounter Details Date Type Department Care Team (Latest Contact Info) Description 07/23/2013 10:39 EDT - 07/23/2013 23:59 EDT Hospital Encounter [facility] [address] [place] [address] Unknown, Provider, Discharge Disposition: Home or Self Care Social History Tobacco Use Types Packs/Day Years Used Date Smoking Tobacco: Never Assessed Sex and Gender Information Value Date Recorded Sex Assigned at Female 05/26/2021 17:11 EDT Gender Identity Female 05/26/2021 17:11 EDT Sexual Orientation Not on file documented as of this encounter Discharge Disposition Disposition Code Departure Means Destination Home or Self Jail documented in this encounter Plan of Treatment Not on file documented as of this encounter Visit Diagnoses Not on filedocumented in this encounter Care Teams Cleaning And Maintenance Worker Relationship Specialty Start Date End Date Tracey Butler NP PCP - General 08/08/08 08/12/13 documented as of this encounter
--- OUTSIDE RECORDS SUMMARY | 2023-10-04 01:04 | XMS_ITS | Encounter Summary ---
Author Organization [facility] Address [address] [place] [address] Care Team Providers Care Social Worker Aide Name Role Phone Taylor Peña MD Primary Care Provider [phone]- [phone] Reason for Visit * Reason Comments Discuss Surgery Encounter Details Date Type Department Care Team (Late st Contact Info) Description 01/30/2014 13:00 EST Office Visit [facility] ENT - [address] [phone] Unknown, Provider, Juan Craig MD [address] [place] [address] [address] Toxic thyroid nodule (Primary Dx) Social History Tobacco Use Types Packs/Day Years [...] Body Mass Index 29.05 01/30/2014 1306 EST documented in this encounter Ordered Prescriptions Prescription Sig Dispensed Refills Start Date End Da te HYDROmorphone (DILAUDID) 2 mg tablet Take 1 Tab by mouth every 4 hours as needed for Pain. Earliest Fill Date: 01/30/14 20 Tab 0 01/30/2014 documented in this encounter Progress Notes * Juan Craig MD - 01/30/2014 1300 EST CC: toxic thyroid nodule. HISTORY OF PRESENT ILLNESS: This is a 43-year-old female with a history of a left toxic thyroid nodule. Her TSH has been slowly decreasing with more symptoms of thyrotoxicosis. Her last TSH was 0.32 in November 2013. She had a thyroid uptake scan in 2009, which showed a toxic nodule in the left lower pole and a recent thyroid, ultrasound at [facility], which showed an unchanged exophytic nodule in the left lower pole 1.5 cm in diameter as well as additional small nodules, also unchanged. She has been evaluated for her dysphagia in the past and was noted to have posterior laryngeal edema consistent with laryngopharyngeal reflux. PAST MEDICAL HISTORY: Significant for migraines, sleep apnea, bowel disease, asthma and heartburn. PREVIOUS SURGERIES: Include nasal sinus surgery, tonsillectomy and UPPP. FAMILY HISTORY: Significant for cancer, allergies, asthma. SOCIAL HISTORY: The patient is a nonsmoker. She has drug allergies to ABILIFY, AMITRIPTYLINE, MORPHINE, ROXICET, SOY and VICODIN. CURRENT MEDICATIONS: Include Flexeril, Cymbalta, EpiPen, Depakote, [place], Lamictal, Nasonex, Ultram and Desyrel. REVIEW OF SYSTEMS: Otherwise negative for a complete review of all systems. PHYSICAL EXAM: General: Well-developed, well-nourished, alert, oriented and cooperative adult female in no acute distress. Normal voice. Vital signs: Height 66 inches, weight 180. Blood pressure 104/61, pulse 110. The face is normal without lesions. No tenderness. Salivary glands are normal. Facialstrength is symmetric. Eye exam is normal. Ears: External ears are normal, canals are clear, tympanic membranes are normal. Hearing is intact. Nose: Nasal dorsum is midline, the airway is patent. Oral cavity is clear. Posterior pharynx is clear. Neck: No pathologic lymphadenopathy. Trachea is midline. Chest is clear to auscultation. Heart: Regular rate and rhythm, although tachycardic. PROCEDURE(done previously): Fiberoptic endoscopy was performed with topical anesthesia. No evidenceof nasal polyps or purulence. Nasopharynx is clear. The base of tongue, epiglottis, vallecula, piriform sinuses, false vocal cords and true vocal cords are within normal limits with good bilateral true vocal cord motion. There is still some posterior laryngeal edema, but no vocal cord paralysis or paresis. IMPRESSION: Left toxic thyroid nodule and thyrotoxicosis. PLAN: Left thyroid lobectomy. This will be scheduled as an outpatient procedure under general anesthesia. This procedure has been fully reviewed with the patient and written informed consent has been obtained. Rx for Dilaudid given. documented in this encounter Plan of Treatment Not on file documented as of this encounter Visit Diagnoses Diagnosis Toxic thyroid nodule- Primary Toxic uninodular goiter without mention of thyrotoxic crisis or storm documented in this encounter Care Teams Social Worker Aide Relationship Specialty Start Date End Date Taylor Peña MD [address] [place] [address] PCP - General 08/13/13 02/27/20 documented as of this encounter
--- OUTSIDE RECORDS SUMMARY | 2023-10-04 01:04 | XMS_ITS | Encounter Summary ---
Author Organization [facility] Address [address] [place] [address] Care Team Providers Care Bankruptcy Attorney Name Role Phone Taylor Peña MD Primary Care Provider [phone]- [phone] Reason for Visit * Reason Comments Post-OP Follow Up Encounter Details Date Type Department Care Team (Late st Contact Info) Description 02/18/2014 10:00 EST Office Visit [facility] ENT - [address] [address], Provider, Juan Craig MD [address] [place] [phone] Thyroid nodule (Primary Dx) Social History Tobacco Use Types Packs/Day Years Used Date Smoking Tobacco: Never Alcohol Use Standard Drinks/Week Comments Yes 0 (1 standard drink = 0.6 oz pur e alcohol) occ Sex and Gender Information Value Date Recorded Sex Assigned at Female 05/26/2021 17:11 EDT Gender Identity Female 05/26/2021 17:11 EDT Sexual Orientation Not on file documented as of this encounter Progress Notes * Juan Craig MD - 02/18/2014 1014 EST Follow up thyroidectomy surgery approximately one week ago. Subjective: Emilee Abebe is doing well with no complaints. The patient does not have hoarsenessand is swallowing well. Objective: The sutures are removed. The wound looks good. Pathology shows a benign nodule. Assessment: Emilee is doing well S/P thyroidectomy. Plan: The patient will follow-up with their earthmoving plant operator or PCP. Juan Craig MD 02/18/2014 documented in this encounter Plan of Treatment Not on file documented as of this encounter Visit Diagnoses Diagnosis Thyroid nodule- Primary Nontoxic uninodular goiter documented in this encounter Care Teams Bankruptcy Attorney Relationship Specialty Start Date End Date Taylor Peña MD [address] [place] [address] PCP - General 08/13/13 02/27/20 documented as of this encounter
--- OUTSIDE RECORDS SUMMARY | 2023-10-04 01:04 | XMS_ITS | Encounter Summary ---
Author Organization [facility] Address [address] [place] [address] Care Team Providers Care Waste Water Treatment Plant Operator Name Role Phone Unknown, Provider Primary Care Provider Taylor Peña MD Unavailable [phone] Encounter Details Date Type Department Care Team (Late st Contact Info) Description 08/25/2023 Lab Requisition [facility] - [facility] [address] [place] [address] Outr Resulting Lab, Provider Social History Tobacco [...] on file documented as of this encounter Functional Status Functional Status Response Date of [...] concentrating, remembering, or making decisions? Yes 09/01/2020 documented as of this encounter Plan of Treatment Not on file documented as of this encounter Procedures Procedure Name Priority Date/Time Associated Diagnosis Comments FSH Routine 08/25/2023 7:31 EDT documented in this encounter Results * FSH (08/25/2023 7:31 EDT) FSH 90.8 See Note mIU/mL 08/25/2023 22:56 EDT [facility] Blood VENOUS BLOOD / Unknown 08/25/2023 7:31 EDT 08/25/2023 22:02 EDT Narrative [facility] - 08/25/2023 22:56 EDT NOTE: [...] Resulting Lab CHEMISTRY & BLOOD GAS ORDERABLES [facility] [address] [place], [place] [id number] documented in this encounter Visit Diagnoses Not on filedocumented in this encounter Care Teams Waste Water Treatment Plant Operator Relationship Specialty Start Date End Date Unknown, Provider, PCP - General 02/28/20 Taylor Peña MD [address] [place] [id number] 02/28/20 documented as of this encounter
--- OUTSIDE RECORDS SUMMARY | 2023-10-04 01:04 | XMS_ITS | Encounter Summary ---
Author Organization [facility] Address [address] [place] [address] Care Team Providers Care Wrapper Cashier Name Role Phone Tracey Butler NP Primary Care Provider Taylor Quevedo MD Primary Care Provider [phone]- [phone] Encounter Details Date Type Department Care Team (Late st Contact Info) Description 07/23/2013 Historical Results Only [facility] - Main [address] [address] [place] [id number] [place] [phone] Social History Tobacco Use Types Packs/Day Years Used Date Smoking Tobacco: Never Assessed Sex and Gender Information Value Date Recorded Sex Assigned at Female 05/26/2021 17:11 EDT Gender Identity Female 05/26/2021 17:11 EDT Sexual Orientation Not on file documented as of this encounter Plan of Treatment Not on file documented as of this encounter Procedures Procedure Name Priority Date/Time Associated Diagnosis Comments CYTOLOGY (NON-GYNECOLOGIC INCLUDING FLUIDS AND FINE NEEDLE ASPIRATION)- ORDER ONLY Routine 07/23/2013 documented in this encounter Results * CYTOLOGY (NON-GYNECOLOGIC INCLUDING FLUIDS AND FINE NEEDLE ASPIRATION)- ORDER ONLY (07/23/2013) 07/23/2013 07/23/2013 13: 35 EDT Narrative [facility] - 07/29/2013 10:25 EDT ----- ------- Name: CODY FERRARO ? : 72 ?Age/Sex: 48/F ?Unit#: [id number] ? Loc: DI ?Status: REG CLI ?? Reg Date: 07/23/13 ? Pt.Phone Number: ? ----- ------- Specimen: [id number] ? STATUS: SOUT ?Spec Date:07/23/13 ? Physician Copies: ?Heide Barlow MD ?? Tissues: A ?? THYROID FNA (LEFT) ? TAYLOR PEÑA CPT: 64360 ?? Units: ??1 ? [id number] ? 1 ? [id number] ? 1 ----- ------- ?? NON YARDAGE TUFTING MACHINE OPERATOR CYTOLOGY DIAGNOSIS Thyroid, left, ultrasound-guided fine needle aspiration: - Benign follicular nodule. ??See comment. Comment: The specimen consists of follicular and Hurthle cells arranged in follicles of variable size. ??Abundant colloid is present in the background. ??No cytologic atypia is appreciated. ??Findings are consistent with a benign thyroid nodule. Rapid Evaluation: ?? Pass 1 - Few groups, inadequate. ?Pass 2 - Adequate. ?Pass 3 - Inadequate. ?Pass 4 - Inadequate. ( 07/23/13 PATH ASSIST:1) ----- ------- ? SPECIMEN DESCRIPTION ? 4 fixed prepared slides, 4 air dried prepared slides, and 1 ?? tube of Cytolyt were received and processed by selective ?? enhancement technique. ?? PREOP DX/CLINICAL HISTORY ?THYROID NODULE Signed ____(signature on file)____ Kerry Marinelli M.D. 07/29/13 By the signature above, the attending physician certifies that he/she has personally conducted a gross and/or microscopic examination of the described specimens and rendered or confirmed the above diagnosis. Test Performed by [facility], [address] [place] [id number] [employer] Lead: Kerry Marinelli MD PHD ----- ------- Heide Barlow MD PATHOLOGY ORDERABLES [facility] documented in this encounter Visit Diagnoses Not on filedocumented in this encounter Care Teams Wrapper Cashier Relationship Specialty Start Date End Date Tracey Butler NP PCP - General 08/08/08 08/12/13 Taylor Peña MD [address] [place], [place] [id number] PCP - General 08/13/13 02/27/20 documented as of this encounter
--- OUTSIDE RECORDS SUMMARY | 2023-10-04 01:04 | XMS_ITS | Encounter Summary ---
Author Organization [facility] Address [address] [place] [address] Care Team Providers Care Highway Truck Driver Name Role Phone Tracey Butler NP Primary Care Provider Valdo isaac Encounter Details Date Type Department Care Team (Latest Contact Info) Description 08/28/2009 0:49 EDT - 08/28/2009 23:59 EDT Hospital En[place] [facility] [place] [phone] Unknown, Provider, Discharge Disposition: Home or Self Care Social History Tobacco Use Types Packs/Day Years Used Date Smoking Tobacco: Never Assessed Sex and Gender Information Value Date Recorded Sex Assigned at Female 05/26/2021 17:11 EDT Gender Identity Female 05/26/2021 17:11 EDT Sexual Orientation Not on file documented as of this encounter Discharge Disposition Disposition Code Departure Means Destination Home or Self Fdc documented in this encounter Plan of Treatment Not on file documented as of this encounter Procedures Procedure Name Priority Date/Time Associated Diagnosis Comments MR UP EXT JT W CONRAST [id number] 08/28/2009 14:08 EDT documented in this encounter Results * MR UP EXT JT W CONRAST [id number] (08/28/2009 14:08 EDT) Anatomical Region Laterality Modality Other 08/28/2009 14:0 8 EDT 09/01/2009 16:46 EDT Narrative 09/01/2009 16:46 EDT MR UP EXT JT W CONRAST [id number] ??Aug 28, 2009 02:08:00 PM Clinical History/Comments: LT SHOULDER PAIN - LONG HEAD BICEP TEAR Comparison: Left shoulder radiographs August 20, 2009. Technique: MR imaging of the left shoulder is performed following injection of a dilute gadolinium solution into the glenohumeral joint space with 6 sequences obtained. Findings: There are study limitations due to patient motion artifact, which is considerable on some images. It is possible that pathology may be missed or misinterpreted. Despite this however, some useful observations can still be made. Unfortunately, there is decreased contrast distention of the joint capsule due to extravasation of contrast material out of the joint. Suspect posterior superior labral tear extending from about the 9 to 11 o'clock position, accompanied by posterior stripping and elevation of the posterior superior scapular periosteum (axial images 12 to 15). Unfortunately, the Aber sequence was not performed which would have been helpful in more fully characterizing this abnormality. Reportedly the patient could not tolerate positioning of her arm in abduction and external rotation. The long head of the biceps tendon appears intact and normally positioned. There is mild supraspinatus and infraspinatus tendinosis. Possible low grade articular surface partial tear of the supraspinatus tendon (coronal image 10) however, this could be artifactual in nature. Contrast material extravasated in and around portions of the subscapularis tendon and muscle limit evaluation of these structures. Although no high-grade subscapularis tendon tear is suspected. The teres minor tendon is intact. No significant rotator cuff muscle atrophy is demonstrated. Mild acromioclavicular degenerative joint disease with minimal sized inferior pointing AC joint osteophytes only indent the fat superficial to the supraspinatus myotendinous junction. There is mild encroachment on the subacromial space structures by suspected minimal size subacromial enthesophyte formation. This could be correlated for any clinical evidence of impingement. There is mild subacromial subdeltoid bursitis present. Impression: 1. Suspect posterior superior labral tear extending from about the 9 to 11 o'clock position, accompanied by posterior stripping and elevation of the posterior superior scapular periosteum (axial images 12 to 15). Unfortunately, the Aber sequence was not performed which would have been helpful in more fully characterizing this abnormality. Reportedly the patient could not tolerate positioning of her arm in abduction and external rotation. 2. No full-thickness rotator cuff tendon tear is evident. 3. There is mild supraspinatus and infraspinatus tendinosis. Possible low grade articular surface partial tear of the supraspinatus tendon (coronal image 10) however, this could be artifactual in nature. Contrast material extravasated in and around portions of the subscapularis tendon and muscle limit evaluation of these structures. Although no high-grade subscapularis tendon tear is suspected. The teres minor tendon is intact. 4. Mild acromioclavicular degenerative joint disease with minimal sized inferior pointing AC joint osteophytes only indent the fat superficial to the supraspinatus myotendinous junction. 5. There is mild encroachment on the subacromial space structures by suspected minimal size subacromial enthesophyte formation. This could be correlated for any clinical evidence of impingement. 6. There is mild subacromial subdeltoid bursitis present. 7. Considerable study limitations due to patient motion artifact also limitations related to extravasation of contrast material out of the glenohumeral joint. Procedure Note 09/01/2009 MR UP EXT IRENE MCKINNEY [id number] Aug 28, 2009 02:08:00 PM Clinical History/Comments: LT SHOULDER PAIN - LONG HEAD BICEP TEAR Comparison: Left shoulder radiographs August 20, 2009. Technique: MR imaging of the left shoulder is performed following injection of a dilute gadolinium solution into the glenohumeral joint space with 6 sequences obtained. Findings: There are study limitations due to patient motion artifact, which is considerable on some images. It is possible that pathology may be missed or misinterpreted. Despite this however, some useful observations can still be made. Unfortunately, there is decreased contrast distention of the joint capsule due to extravasation of contrast material out of the joint. Suspect posterior superior labral tear extending from about the 9 to 11 o'clock position, accompanied by posterior stripping and elevation of the posterior superior scapular periosteum (axial images 12 to 15). Unfortunately, the Aber sequence was not performed which would have been helpful in more fully characterizing this abnormality. Reportedly the patient could not tolerate positioning of her arm in abduction and external rotation. The long head of the biceps tendon appears intact and normally positioned. There is mild supraspinatus and infraspinatus tendinosis. Possible low grade articular surface partial tear of the supraspinatus tendon (coronal image 10) however, this could be artifactual in nature. Contrast material extravasated in and around portions of the subscapularis tendon and muscle limit evaluation of these structures. Although no high-grade subscapularis tendon tear is suspected. The teres minor tendon is intact. No significant rotator cuff muscle atrophy is demonstrated. Mild acromioclavicular degenerative joint disease with minimal sized inferior pointing AC joint osteophytes only indent the fat superficial to the supraspinatus myotendinous junction. There is mild encroachment on the subacromial space structures by suspected minimal size subacromial enthesophyte formation. This could be correlated for any clinical evidence of impingement. There is mild subacromial subdeltoid bursitis present. Impression: 1. Suspect posterior superior labral tear extending from about the 9 to 11 o'clock position, accompanied by posterior stripping and elevation of the posterior superior scapular periosteum (axial images 12 to 15). Unfortunately, the Aber sequence was not performed which would have been helpful in more fully characterizing this abnormality. Reportedly the patient could not tolerate positioning of her arm in abduction and external rotation. 2. No full-thickness rotator cuff tendon tear is evident. 3. There is mild supraspinatus and infraspinatus tendinosis. Possible low grade articular surface partial tear of the supraspinatus tendon (coronal image 10) however, this could be artifactual in nature. Contrast material extravasated in and around portions of the subscapularis tendon and muscle limit evaluation of these structures. Although no high-grade subscapularis tendon tear is suspected. The teres minor tendon is intact. 4. Mild acromioclavicular degenerative joint disease with minimal sized inferior pointing AC joint osteophytes only indent the fat superficial to the supraspinatus myotendinous junction. 5. There is mild encroachment on the subacromial space structures by suspected minimal size subacromial enthesophyte formation. This could be correlated for any clinical evidence of impingement. 6. There is mild subacromial subdeltoid bursitis present. 7. Considerable study limitations due to patient motion artifact also limitations related to extravasation of contrast material out of the glenohumeral joint. Franki Wong MD G MRI ORDERABLES documented in this encounter Visit Diagnoses Not on filedocumented in this encounter Care Teams Highway Truck Driver Relationship Specialty Start Date End Date Tracey Butler, IT DIRECTOR PCP - General 08/08/08 08/12/13 documented as of this encounter
--- OUTSIDE RECORDS SUMMARY | 2023-10-04 01:04 | XMS_ITS | Encounter Summary ---
Author Organization [facility] Address [address] [place] [address] Care Team Providers Care Moisture Conditioner Operator Name Role Phone Unknown, Provider Primary Care Provider Taylor Peña MD Unavailable [phone] Reason for Visit * Reason Comments New Patient Visit Telemedicine Video Visit Joint Pain Ongoing pain in hips , lower back, neck * Referral (Routine) - Closed Specialty Diagnoses / Procedures Referred By Contkirby almaraz Referred To Contact Rheumatology Diagnoses Fibromyalgia Dina Diaz PA [address] [place] [phone] [place] [address] [address] [place] [id number] Referral ID Status Reason Start Date Expiration Date Visits Re quested Visits Authorized [id number] Closed 1 1 Encounter Details Date Type Department Care Team (Late st Contact Info) Description 09/01/2020 11:00 EDT Telemedicine [facility] Rheumatology & Immunology - [address] [phone] Christie Lopez MD [address] [place] [address], [address] [place] [address] Fibromyalgia (Primary Dx) Social History Tobacco Use Types [...] Yes 09/01/2020 documented as of this encounter Progress Notes * Lorenza Sanz MA - 09/01/2020 1100 EDT The concept of ???Telemedicine?? has been described to the patient.? Patient has been informed of the anticipated benefits and possible risks.? Patient understands the information provided regardingtelemedicine, has had the opportunity to ask questions about this information, and all questions have been answered to patient???s satisfaction. Patient consents for the use of telemedicine in his/her medical care and authorizes the transmission of any relevant medical information to providers and their staff involved in patient???s medical or mental health care. * Christie Lopez MD - 09/01/2020 1100 EDT Division of Rheumatology and Clinical Immunology Televideo Visit Note The concept of ???Telemedicine?? has been described to the patient.? Patient has been informed of the anticipated benefits and possible risks.? Patient understands the information provided regardingtelemedicine, has had the opportunity to ask questions about this information, and all questions have been answered to patient???s satisfaction. Patient consents for the use of telemedicine in his/her medical care and authorizes the transmission of any relevant medical information to providers and their staff involved in patient???s medical or mental health care. TELEMEDICINE VIDEO VISIT Today's visit was provided through telemedicine video conferencing: The location of the patient : Home The location of the provider: Office The following staff and their role did participate in today's encounter visit: Christie Lopez MD TELEPVIDEO INITIAL PATIENT NOTE: Date of Service: 09/01/20 Reason for follow up: Fibromyalgia. History of Present Illness: Prior to starting the visit verbal consent for telepVIDEO visit was obtained. Emiele Wilhelm is a 50 y.o. female with past medical history of laryngopharyngeal reflux, esophagitis/erosive gastritis, toxic thyroid nodules, mood disorder, sleep apnea, was referred to rheumatology due to fibromyalgia. Referred due to fibromyalgia. Diagnosed with 2003. Onset of pain: 2003. She can't recall where did pain start. Localizes her current pain to neck, lower back, knees. Worse areas of pain: b/l hips (R > L ) and lower back. Back pain is worse at the end of the day. Morning stiffness: occasionally. Fluctuations throughout the day (worse time of the day): usually at night. Joint swelling: no Alleviating factors: Nothing. Other aspects of history: Light sensitivity: yes Sound sensitivity: no Dizziness/POTS: occasionally. Mood: good, but she takes medication for it. Sleep: Does not sleep. Staying asleep is a problem. Sleeps 6 hours, does not wake up refreshed. Post exertional malaise: she walks at her job. She works at [employer]. Has previous history of trauma in childhood. Brain fog: yes Denies fevers Denies SICCA Denies rashes Denies photosensitivity Denies red or painful eyes Denies hearing loss Denies chest pain, shortness of breath or cough. Denies diarrhea Denies joint swelling Denies Raynaud's Denies symptoms of dactylitis (no history of a single or few sausage-like digits), enthesitis (nohistory of tennis elbow, plantar fascitis or achilles tendon swelling), uveitis (no red, painful eyes) or nail changes that have been noticeable. Denies personal or family history of psoriasis. *Prior pharmacologic therapies: Has been on gabapentin. She did not tolerate it. Manic behavior. Has tried pregabalin, gained weight. Imipramine: did not tolerate it. Duloxetine: never took it for fibromyalgia, took it for depression. Did not work for depression. Takes flexeril when she needs it. Reports does not take it on daily basis. She has been on lamotrigine/divalproex. She does not believe she has bipolar disorder, but reports she has been diagnosed with it in the past. She went off all medications about 6 years prior. *Prior non -pharmacologic therapies: Last time she did PT was several years prior, such that she can't recall. Not feasible. Has had x-rays at [facility]. Lives alone. Children are grown up. RAPID3 Summary Functional Status: Pain Tolerance: Global Estimate: Score: Interpretation: No flowsheet data found. ALLERGIES: Abilify [aripiprazole], Amitriptyline, Morphine, Roxicet [oxycodone- acetaminophen], Soy,Tree nuts, and Vicodin [hydrocodone-acetaminophen] Past Medical History: Diagnosis Date ??? Asthma ??? Bowel disease ??? Heartburn ??? Migraines ??? Unspecified sleep apnea Past Surgical History: Procedure Laterality Date ??? NASAL SINUS SURGERY ??? TONSILLECTOMY Family History Problem Relation Age of Onset ??? Allergic Rhinitis Mother ??? Asthma Mother ??? Asthma Sister ??? Cancer Maternal Aunt ??? Cancer Maternal Uncle ??? Cancer Maternal Grandmother ??? Allergic Rhinitis Other Social History Socioeconomic History ??? Marital status: Spouse name: Not on file ??? Number of children: Not on file ??? Years of education: Not on file ??? Highest education level: Not on file Occupational History ??? Not on file Tobacco Use ??? Smoking status: Never Smoker ??? Smokeless tobacco: Never Used Vaping Use ??? Vaping Use: Never used Substance and Sexual Activity ??? Alcohol use: Yes Comment: occ ??? Drug use: No ??? Sexual activity: Not on file Other Topics Concern ??? Not on file Social History Narrative ??? Not on file Social Determinants of Health Financial Resource Strain: ??? Difficulty of Paying Living Expenses: Food Insecurity: ??? Worried About Running Out of Food in the Last Year: ??? Ran Out of Food in the Last Year: Transportation Needs: ??? Lack of Transportation (Medical): ??? Lack of Transportation (Non-Medical): Physical Activity: ??? Days of Exercise per Week: ??? Minutes of Exercise per Session: Stress: ??? Feeling of Stress : Social Connections: ??? Frequency of Communication with Friends and Family: ??? Frequency of Social Gatherings with Friends and Family: ??? Attends Nondenominational Services: ??? Active Member of Clubs or Organizations: ??? Attends Club or Organization Meetings: ??? Marital Status: REVIEW OF SYSTEMS: 10 organ review of system was negative except as in HPI PHYSICAL EXAMINATION: No physical exam performed LABS None ordered Reviewed OSH labs Negative SHERIDAN, RF, CCP IMAGING: None ordered Diagnosis / Assessment: Fibromyalgia Her history of pain for about 16 years, that is not worse in AM or PM, associated brain fog, un-rerefreshed sleep supports this diagnosis. This visit is limited by the lack of physical exam. Will have her follow up with Adithya Ragland in 6 months for a physical exam. Further imaging wouldbe pursued then if synovitis present or back pain is described as inflammatory back pain (at this time, her back pain description is rather mechanical). Should comment on the fact that she has negative serologies (SHERIDAN, CCP, RF) and while these never rule out inflammatory joints pain, which is a clinical diagnosis, they are somewhat reassuring for some of our diseases. The cornerstone of fibromyalgia treatment is paced physical activity through PT/POOL THERAPY, unfortunately this is not feasible for her. Other aspects that may improve pain processing are ensuring mood stability and central acting drugs. She has not tolerated these in the past, but I think she maybenefit from flexeril (chronically at night, 5 to 10 mg bedtime), in hopes to improve sleep. I will refer her to integrative medicine, for further input on integrative approaches to pain management and/or dietary changes/ supplements. Lastly, she could attend the comprehensive pain program in [place], if this was feasible. Recommendations/Evaluation: Consider SI joint imaging at follow up Would ensure VIt D is normal (please obtain if not done already) Recommend trying low dose flexeril every night for sleep (it can be used chronically for fibromyalgia). Referral to integrative medicine Continue to follow up with your nurse practitioner for therapy. Follow up in 6 months (STATISTICAL TYPIST) once more I spent a total of 60 minutes on the date of this encounter meeting with the patient and reviewing documentation/coordinating care as described in the above note. No procedures were performed at the time of the visit. Christie Lopez MD documented in this encounter Plan of Treatment Not on file documented as of this encounter Visit Diagnoses Diagnosis Fibromyalgia- Primary Mylagia and myositis, unspecified documented in this encounter Historical Medications * This list may reflect changes made after this encounter. Medication Sig Dispensed Refills Start Date End Date bisoprolol (ZEBETA) 5 mg tablet 06/21/2020 montelukast (SINGULAIR) 10 mg tablet Take 10 mg by mouth at bedtime. 08/11/2020 added in this encounter Care Teams Moisture Conditioner Operator Relationship Specialty Start Date End Date Unknown, Provider, PCP - General 02/28/20 Taylor Peña MD [address] [place] [id number] 02/28/20 documented as of this encounter
--- OUTSIDE RECORDS SUMMARY | 2023-10-04 01:04 | XMS_ITS | Encounter Summary ---
Author Organization [facility] Address [address] [place] [address] Care Team Providers Care Trial Justice Name Role Phone Tracey Butler NP Primary Care Provider Valdo e Encounter Details Date Type Department Care Team (Latest Contact Info) Description 09/24/2009 0:45 EDT - 09/24/2009 23:59 EDT [place] [facility] [phone] Unknown, Provider, Discharge Disposition: Home or Self Care Social History Tobacco Use Types Packs/Day Years Used Date Smoking Tobacco: Never Assessed Sex and Gender Information Value Date Recorded Sex Assigned at Female 05/26/2021 17:11 EDT Gender Identity Female 05/26/2021 17:11 EDT Sexual Orientation Not on file documented as of this encounter Discharge Disposition Disposition Code Departure Means Destination Home or Self Retirement documented in this encounter Plan of Treatment Not on file documented as of this encounter Procedures Procedure Name Priority Date/Time Associated Diagnosis Comments US THYROID [id number] 09/24/2009 8:49 EDT documented in this encounter Results * US THYROID [id number] (09/24/2009 8:49 EDT) Anatomical Region Laterality Modality Other 09/24/2009 8:49 EDT 09/24/2009 10:30 EDT Narrative 09/24/2009 10:30 EDT US THYROID [id number] ??Sep 24, 2009 08:49:00 AM Clinical History/Comments: LOW TSH, HYPERTHYROID SYMPTOMS Comparison: None. Findings: A thyroid ultrasound was performed. The right lobe of the thyroid gland is enlarged. It measures 1.6 x 1.3 x 2 cm. In the mid aspect of the right lobe of the thyroid gland. There is a cystic nodule that measures 7 x 3 x 6 mm. In the lower pole of the right lobe of the thyroid gland. There is an additional cystic nodule that measures 4 x 2 x 4 mm. There are some normal appearing lymph nodes in the right neck. The thyroid isthmus is upper limits of normal. It measures 3.5 mm. Within the thyroid isthmus. There is a hypoechoic nodule that measures 9 x 4 x 3 mm. In the left lobe of the thyroid gland is enlarged. It measures 6.1 x 1.4 x 1.6 cm. The in the midportion of the left lobe of the thyroid gland posteriorly. There is a hypoechoic nodule that measures 7 x 4 x 6 mm. In the lower pole of the left lobe of the thyroid gland. There is a solid nodule that measures 1.6 x 1 x 1 cm. There is blood flow in this nodule. There are some normal appearing lymph nodes in the left neck. Impression: 1. Thyromegaly. 2. Nodules bilaterally as described above. The nodule in the lower pole of the left lobe appears mostly solid, have blood flow is greater than 1 cm. This would be amenable to sampling under ultrasound guidance. Procedure Note 09/24/2009 US THYROID [id number] Sep 24, 2009 08:49:00 AM Clinical History/Comments: LOW TSH, HYPERTHYROID SYMPTOMS Comparison: None. Findings: A thyroid ultrasound was performed. The right lobe of the thyroid gland is enlarged. It measures 1.6 x 1.3 x 2 cm. In the mid aspect of the right lobe of the thyroid gland. There is a cystic nodule that measures 7 x 3 x 6 mm. In the lower pole of the right lobe of the thyroid gland. There is an additional cystic nodule that measures 4 x 2 x 4 mm. There are some normal appearing lymph nodes in the right neck. The thyroid isthmus is upper limits of normal. It measures 3.5 mm. Within the thyroid isthmus. There is a hypoechoic nodule that measures 9 x 4 x 3 mm. In the left lobe of the thyroid gland is enlarged. It measures 6.1 x 1.4 x 1.6 cm. The in the midportion of the left lobe of the thyroid gland posteriorly. There is a hypoechoic nodule that measures 7 x 4 x 6 mm. In the lower pole of the left lobe of the thyroid gland. There is a solid nodule that measures 1.6 x 1 x 1 cm. There is blood flow in this nodule. There are some normal appearing lymph nodes in the left neck. Impression: 1. Thyromegaly. 2. Nodules bilaterally as described above. The nodule in the lower pole of the left lobe appears mostly solid, have blood flow is greater than 1 cm. This would be amenable to sampling under ultrasound guidance. Liliya Green APRN IMG US ORDERABLES documented in this encounter Visit Diagnoses Not on filedocumented in this encounter Care Teams Trial Justice Relationship Specialty Start Date End Date Tracey Butler NP PCP - General 08/08/08 08/12/13 documented as of this encounter
--- OUTSIDE RECORDS SUMMARY | 2023-10-04 01:04 | XMS_ITS | Encounter Summary ---
Author Organization [facility] Address [address] [place] [address] Care Team Providers Care Stummel Selector Name Role Phone Taylor Peña MD Primary Care Provider [phone]- [phone] Encounter Details Date Type Department Care Team (Latest Contact Info) Description 06/17/2014 10:07 EDT - 06/17/2014 23:59 EDT Hospital Encounter [address] [address] Unknown, Provider, Discharge Disposition: Home or Self [...] Sig Dispensed Refills Start Date End Date CYCLOBENZAPRINE HCL (FLEXERIL ORAL) Take by mouth as needed. divalproex ER (DEPAKOTE ER) 250 mg tablet Take 500 mg by mouth daily. DULoxetine (CYMBALTA) 60 mg capsule Take 60 mg by mouth daily. EPINEPHRINE (EPIPEN INJECTION) Inject as directed. fexofenadine (PAULIE) 180 mg tablet Take 180 mg by mouth daily. HYDROmorphone (DILAUDID) 2 mg tablet Take 1 Tab by mouth every 4 hours as needed for Pain. Earliest Fill Date: 01/30/14 20 Tab 0 01/30/2014 lamoTRIgine (LAMICTAL) 100 mg tablet Take 100 mg by mouth daily. mometasone (NASONEX) 50 mcg/actuation nasal spray 2 Sprays by nasal route daily. traMADol (ULTRAM) 50 mg tablet Take 50 mg by mouth every 6 hours. traZODone (DESYREL) 100 mg tablet Take 100 mg by mouth daily. documented as of this encounter Discharge Disposition Disposition Code Departure Means Destination Home or Self Detention documented in this encounter Plan of Treatment Not on file documented as of this encounter Visit Diagnoses Not on filedocumented in this encounter Care Teams Stummel Selector Relationship Specialty Start Date End Date Taylor Peña MD [address] [place] [address] PCP - General 08/13/13 02/27/20 documented as of this encounter
--- OUTSIDE RECORDS SUMMARY | 2023-10-04 01:04 | XMS_ITS | Encounter Summary ---
Author Organization [facility] Address [address] [place] [address] Care Team Providers Care Iuss Master Analyst Name Role Phone Taylor Mejia MD Primary Care Provider [phone]- [phone] Encounter Details Date Type Department Care Team (Late st Contact Info) Description 02/10/2014 Historical Results Only [facility] Lab - Main [place] [address] [place] [address] Juan Craig MD [address] [place] [address] [address] Social History Tobacco Use Types Packs/Day Years [...] Date/Time Associated Diagnosis Comments SURGICAL PATHOLOGY Routine 02/10/2014 documented in this encounter Results * SURGICAL PATHOLOGY (02/10/2014) 02/10/2014 02/10/2014 15: 05 EST Narrative [facility] - 02/11/2014 14:40 EST ----- ------- Name: FERRAROCODY MANZANARES ? : 72 ?Age/Sex: 48/F ?Unit#: [id number] ? Loc: SDS ? Status: DEP SDC ?? Reg Date: 02/10/14 ? Pt.Phone Number: ? ----- ------- Specimen: [id number] ? STATUS: SOUT ?Spec Date:02/10/14 ? Physician Copies: ?Patrice Craig ??MD ? Tissues: A ?? Thyroid (LEFT) ? TAYLOR MEJIA CPT: 36119 ?? Units: ??1 ?FINAL DIAGNOSIS ? Thyroid, left, lobectomy; ? - Benign adenomatous nodules in a background of chronic thyroiditis. ----- ------- ?COMMENT ? Histologic findings correlate with the previous thyroid FNA ([id number]). ? GROSS DESCRIPTION ? Received in formalin labeled with the patient's name and left thyroid lobe is ? a thyroid lobectomy specimen with mildly lobulated contour measuring 6 cm pole ? to pole x up to 3 cm wide x 1.8 cm thick. ??The capsule is intact and mostly ? smooth with focal fibrotic areas. ??The isthmus resection margin is ? identifiable. ??The thyroid is inked prior to sectioning. ??The thyroid ? parenchyma is remarkable for a circumscribed nodule at the lower pole which ? measures 1.3 x 0.9 cm in cross section and has a solid deep red cut surface. ? The remainder of the thyroid parenchyma is deep red and waxy appearing, ? otherwise unremarkable. ??r.s. 8. ??CP ?? PREOP DX/CLINICAL HISTORY ?Left thyroid nodule Signed ____(signature on file)____ Kerry Marinelli M.D. 02/11/14 By the signature above, the attending physician certifies that he/she has personally conducted a gross and/or microscopic examination of the described specimens and rendered or confirmed the above diagnosis. Test Performed by [facility], [address] [place] [address] Supervisor Coating: Kerry Marinelli MD PHD ----- ------- Juan Craig MD PATHOLOGY ORDERABLES [facility] documented in this encounter Visit Diagnoses Not on filedocumented in this encounter Care Teams Iuss Master Analyst Relationship Specialty Start Date End Date Taylor Mejia MD [address] [place] [address] PCP - General 08/13/13 02/27/20 documented as of this encounter
--- OUTSIDE RECORDS SUMMARY | 2023-10-04 01:04 | XMS_ITS | Encounter Summary ---
Author Organization [facility] Address [address] [place] [address] Care Team Providers Care Purchaser Name Role Phone Taylor Peña MD Primary Care Provider [phone]- [phone] Encounter Details Date Type Department Care Team (Latest Contact Info) Description 04/22/2016 7:56 EST - 04/22/2016 23:59 [facility] Hospital Encounter [address] [address] Unknown, Provider, Discharge Disposition: Home or Self [...] Code Departure Means Destination Home or Self Prison documented in this encounter Plan of Treatment Not on file documented as of this encounter Visit Diagnoses Not on filedocumented in this encounter Care Teams Purchaser Relationship Specialty Start Date End Date Taylor Peña MD [address] [place] [address] PCP - General 08/13/13 02/27/20 documented as of this encounter
--- OUTSIDE RECORDS SUMMARY | 2023-10-04 01:04 | XMS_ITS | Encounter Summary ---
Author Organization [facility] Address [address] [place] [address] Care Team Providers Care Pipe Chipper Name Role Phone Unknown, Provider Primary Care Provider [phone] Taylor Peña MD Unavailable [phone] Reason for Visit * (Routine) - Receiving Office to Obtain Authorization Specialty Diagnoses / Procedures Referred By John almaraz Referred To Contact Procedures XR OUTSIDE IMAGES MSK Unknown, Provider, Referral ID Status Reason Start Date Expiration Date Visits Requested Visits Authorized [id number] Receiving Office to Obtain Authorization 03/03/2020 1 1 Encounter Details Date Type Department Care Team (Latest Contact Info) Description 03/02/2020 - 03/02/2020 23:59 EST Hospital Encounter [facility] [place] Discharge Disposition: Home or Self Care Social [...] Code Departure Means Destination Home or Self Care documented in this encounter Plan of Treatment Not on file documented as of this encounter Procedures Procedure Name Priority Date/Time Associated Diagnosis Comments XR OUTSIDE IMAGES MSK Routine 03/03/2020 13:48 EST documented in this encounter Results * XR OUTSIDE IMAGES MSK (03/03/2020 13:48 EST) Narrative 03/03/2020 13:48 EST This is a non-reportable exam. Provider Unknown MD KHAN OTHER IMAGING OR DERABLES documented in this encounter Visit Diagnoses Not on filedocumented in this encounter Care Teams Pipe Chipper Relationship Specialty Start Date End Date Unknown, Provider, PCP - General 02/28/20 Taylor Peña MD [address] [place] [address] 02/28/20 documented as of this encounter
--- OUTSIDE RECORDS SUMMARY | 2023-10-04 01:04 | XMS_ITS | Encounter Summary ---
Author Organization [facility] Address [address] [place] [address] Care Team Providers Care Care Program Resident Name Role Phone Tracey Butler NP Primary Care Provider Taylor Quevedo MD Primary Care Provider [phone]- [phone] Encounter Details Date Type Department Care Team (Late st Contact Info) Description 03/20/2010 Historical Results Only [facility] Lab - [address] [address] Liliya Hanna, COURTROOM DEPUTY [address] [place] [address] Social History Tobacco Use Types Packs/Day Years [...] Date/Time Associated Diagnosis Comments PAP TEST Routine 03/20/2010 documented in this encounter Results * PAP TEST (03/20/2010) 03/20/2010 03/22/2010 10: 26 EST Narrative [facility] - 03/25/2010 12:10 EST ----- ------- Name: CODY FELDER ?: 72 ?Age/Sex: 48/F ?Unit#: [id number] ? Loc: LAB.[facility] ? Status: REG REF ?? Reg Date: 03/20/10 ? Pt.Phone Number: ? ----- ------- Specimen: [id number] ? STATUS: SOUT ?Spec Date:03/20/10 ? Physician Copies: ?Liliya Hanna APR Tissues: ? Cervical/Endo Pap ? CPT: 03575 ?? Units: ??1 ----- ------- ? CYTOLOGY DIAGNOSIS SPECIMEN ADEQUACY: ?Satisfactory for evaluation. Transformation zone component present. GENERAL CATEGORIZATION: ?Negative for Intraepithelial Lesion or Malignancy DESCRIPTIVE DIAGNOSIS: ? Negative for Intraepithelial Lesion or Malignancy. RECOMMENDATIONS/COMMENTS: ?None. ----- ------- ?HPV DNA RESULTS ?? 03/20/10 UNK ??HPV DNA RESULT ??NEG ? Negative for HPV types 16, 18, 31, 33, 35, 39, 45, 51, 52, ? 56, 58, 59, 66, 68. ? Method: Cervista HPV HR (High Risk) DNA test. ----- ------- ORDER QUERIES: LMP: ? - 02/2010 ? N Post ? N ??PREVIOUS ATYPICAL: N BCP/HRT? N Rad Rx? N IUD?PAP PLUS HPV? Y ??REFLEX TO HR-HPV IF ASCUS ?? REFLEX TO HPV 16/18 IF HPV POS/PAP NEG ?? HPV REGARDLESS?RFLX HPV IF LSIL ?? IF ASCUS DO HPV? Y ?[facility] Information ? [facility] ?? Patients Phone# ??[phone] ?? [facility] Order# ? Signed Yuriy Flores CT(ASCP) 03/25/10 By the signature above, the attending physician certifies that he/she has personally conducted a gross and/or microscopic examination of the described specimens and rendered or confirmed the above diagnosis. Test Performed by [facility], [address] [place] [address] Slubber Frame Changer: Kerry Marinelli MD PHD ----- ------- Liliya Hanna APRN PATHOLOGY ORDERABLES [facility] documented in this encounter Visit Diagnoses Not on filedocumented in this encounter Care Teams Care Program Resident Relationship Specialty Start Date End Date Tracey Butler NP PCP - General 08/08/08 08/12/13 Taylor Peña MD [address] [place] [address] [id number] PCP - General 08/13/13 02/27/20 documented as of this encounter
--- OUTSIDE RECORDS SUMMARY | 2023-10-04 01:04 | XMS_ITS | Encounter Summary ---
Author Organization [facility] Address [address] [place] [address] Care Team Providers Care Casing Cleaner Name Role Phone Tracey Butler NP Primary Care Provider Taylor Quevedo MD Primary Care Provider [phone]- [phone] Encounter Details Date Type Department Care Team (Late st Contact Info) Description 09/05/2012 Historical Results Only [facility] Lab - [address] [address] Denzel Moore MD [address] [place] [address] Social History Tobacco Use Types Packs/Day Years [...] Date/Time Associated Diagnosis Comments SURGICAL PATHOLOGY Routine 09/05/2012 16 :52 EDT documented in this encounter Results * SURGICAL PATHOLOGY (09/05/2012 16:52 EDT) 09/05/2012 16:5 2 EDT 09/06/2012 10:03 EDT Narrative [facility] - 09/07/2012 10:34 EDT ----- ------- Name: CODY FELDER ?: [birth year] ?Age/Sex: 48/F ?Unit#: [id number] ? Loc: LAB[facility] ? Status: REG REF ?? Reg Date: 09/05/12 ? Pt.Phone Number: ? ----- ------- Specimen: [id number] ? STATUS: SOUT ?Spec Date:09/05/12 ? Physician Copies: ?Denzel Moore Tissues: A ?? Skin, other than cyst (RIGHT BREAST/AREOLA) ?TAYLOR PEÑA CPT: 94501 ?? Units: ??1 ?FINAL DIAGNOSIS ? Skin of breast, right, areola, punch biopsy; ? - Ruptured follicular cyst with associated granulomatous inflammation and ? foreign body giant cell reaction to keratinous debris. ? GROSS DESCRIPTION ? Received in formalin labeled with the patient's name and right breast nodule ? is a 0.5 cm diameter x 0.7 cm thick punch biopsy of keratotic archer skin, ? bisected, e.s. 1. ??CP ?? PREOP DX/CLINICAL HISTORY ?Nodule skin right breast. Signed ____(signature on file)____ Kerry Marinelli M.D. 09/07/12 By the signature above, the attending physician certifies that he/she has personally conducted a gross and/or microscopic examination of the described specimens and rendered or confirmed the above diagnosis. Test Performed by [facility], [address] [place] [address] Design Printer Balloon: Kerry Marinelli MD PHD ----- ------- Denzel Moore MD PATHOLOGY ORDERABLE S Performing Organization Address City/State/[facility] Co de Phone Number [facility] documented in this encounter Visit Diagnoses Not on filedocumented in this encounter Care Teams Casing Cleaner Relationship Specialty Start Date End Date Tracey Butler NP PCP - General 08/08/08 08/12/13 Taylor Peña MD [address] [place] [address] [id number] PCP - General 08/13/13 02/27/20 documented as of this encounter
--- OUTSIDE RECORDS SUMMARY | 2023-10-04 01:04 | XMS_ITS | Encounter Summary ---
Author Organization [facility] Address [address] [place] [address] Care Team Providers Care Field Naturalist Name Role Phone Taylor Peña MD Primary Care Provider [phone]- [phone] Encounter Details Date Type Department Care Team ([facility] st Contact Info) Description 04/22/2016 Results Only [facility] [phone] Jimena Bush, IMPROVEMENT COORDINATOR [address] [place] [address] Social History Tobacco Use Types Packs/Day Years [...] Name Priority Date/Time Associated Diagnosis Comments PAP TEST- RESULT ONLY Routine 04/22/2016 0:00 EST documented in this encounter Results * PAP TEST- RESULT ONLY (04/22/2016 0:00 EST) Pathology Report: CYTOPATHOLOGY REPORT Reports generated via electronic interface contain original data; however they are lacking the format of the original report. Caution should be taken when reading/interpret ing unformatted reports. Name: ? CODY GALINDO Malik ? Accession #: ? [id number] ? : ? 1970 (Age: 45) ??F ?Collect Date: ? 04/22/2016 ? Location: ? [facility] ? Receive Date: ? 04/26/2016 ? Provider: JIMENA BUSH IMPROVEMENT COORDINATOR Copy to: ? Final Report SPECIMEN ADEQUACY ? Satisfactory for Evaluation - transformation zone component absent GENERAL CATEGORIZATION ? Epithelial Cell Abnormality INTERPRETATION ? Squamous Cell Abnormality - Atypical squamous cells, undetermined significance (ASC-US). EDUCATIONAL NOTES/RECOMMENDAT IONS ? [facility] recommends following ASCCP's 2012 Updated Consensus Guidelines for the Management of Abnormal Cervical Cancer Screening Tests and Cancer Precursors (JLGTD, 2013; 17(5):S1-S27). ??Consensus guidelines are available online at www.asccp.org. Last Menstrual Period: 01/2016 Hormonal/Contrace ptive status: None Specimen/Source: ??Pap Test, Cervix, ThinPrep Imaging System with manual evaluation Document reviewed and electronically signed by: ? INGRID CONNER MD ? Report ??Date: 05/02/2016 12:05 HPV with Pap Test ? Date Ordered: ? 05/02/2016 ? Status: ?? Signed Out ?Date Complete: ? 05/03/2016 ? By: ??System Interface ? Date Reported: ? 05/03/2016 ? Interpretation RESULT: Negative for HPV. No E6 or E7 mRNA is detected from HPV types 16,18,31,33,35, 39,45,51,52,56,58 ,59,66, and 68 by security sme mediated amplification. Comments Document reviewed and electronically signed by: ? System Interface ? Report date: 05/03/2016 By the signature above, the attending physician certifies that he/she has personally conducted a gross and/or microscopic examination of the described specimens and rendered or confirmed the above diagnosis. End of Report [facility] 04/22/2016 04/26/2016 Jimena Bush IMPROVEMENT COORDINATOR PATHOLOGY ORDERABLES [facility] [address] [place] [address] documented in this encounter Visit Diagnoses Not on filedocumented in this encounter Care Teams Field Naturalist Relationship Specialty Start Date End Date Taylor Peña MD [address] [place] [id number] PCP - General 08/13/13 02/27/20 documented as of this encounter
--- OUTSIDE RECORDS SUMMARY | 2023-10-04 01:04 | XMS_ITS | Encounter Summary ---
Author Organization [facility] Address [address] [place] [address] Care Team Providers Care Banquet Food Server Name Role Phone Unknown, Provider Primary Care Provider [phone] Taylor Peña MD Unavailable [phone] Encounter Details Date Type Department Care Team (Late st Contact Info) Description 06/11/2020 Lab Requisition [facility] Pathology & Laboratory Medicine - [address] [address] Nathan Meadows MD [address] [place] [address] [phone] Encounter for other general examination Social History [...] Date/Time Associated Diagnosis Comments SURGICAL PATHOLOGY Today 06/11/2020 9:40 EDT documented in this encounter Results * SURGICAL PATHOLOGY (06/11/2020 9:40 EDT) Final Diagnosis A. STOMACH, ANTRUM, BIOPSY: - Active erosive gastritis in a background of reactive (chemical) gastropathy. B. GASTROESOPHAGEAL JUNCTION, BIOPSY: - Squamous mucosa with mild reactive changes. C. GASTROESOPHAGEAL JUNCTION, BIOPSY #2, BIOPSY: - Squamocolumnar junctional mucosa with active reflux esophagitis. - Negative for intestinal metaplasia; Negative for dysplasia. 06/15/2020 17:12 [facility] Attestation By the signature below, the attending physician certifies that they have 1) personally conducted a gross and/or microscopic examination of the described specimen(s), and/or personally interpreted the results of laboratory testing of the described specimen(s), and 2) personally rendered or confirmed the above diagnosis. 06/15/2020 17:12 [facility] at 1712 Clinical History Dysphagia, HX colon polyps; EGD: gastritis, esophagitis; C scope: normal 06/15/2020 17:12 [facility] Gross Description A. Received in formalin labelled with proper patient identification (initials D, L) and gastric antrum Bx are 2 fragments of archer soft tissue (0.2 x 0.2 x 0.2 cm and 0.3 x 0.2 x 0.2 cm). The specimen is entirely submitted in A1. B. Received in formalin labelled with proper patient identification (initials D, L) and GE junction Bx is a single fragment of archer-bonner soft tissue (0.2 x 0.2 x 0.2 cm). The specimen is entirely submitted in B1. C. Received in formalin labelled with proper patient identification (initials D, L) and GE junction Bx # 2 is a single fragment of archer soft tissue (0.3 x 0.2 x 0.2 cm). The specimen is entirely submitted in C1. THANIA SIMMS(ASCP) 06/12/2020 8:19 06/15/2020 17:12 [facility] Performing Lab [facility] 17:12 [facility] Scanned Images 06/15/2020 17:12 EDT [facility] Tissue ENTIRE ESOPHAGUS / Unknown 06/11/2020 9:40 EDT 06/11/2020 22:59 EDT Tissue specimen (specimen) ESOPHAGEAL STRUCTURE / Unknown 06/11/2020 9:40 EDT 06/11/2020 22:59 EDT Tissue specimen (specimen) ESOPHAGEAL STRUCTURE / Unknown 06/11/2020 9:40 EDT 06/11/2020 22:59 EDT Nathan Meadows MD PATHOLOGY ORDERA [facility] [address] [place] [address] documented in this encounter Visit Diagnoses Diagnosis Encounter for other general examination documented in this encounter Care Teams Banquet Food Server Relationship Specialty Start Date End Date Unknown, Provider, PCP - General 02/28/20 Taylor Peña MD [address] [place] [address] 02/28/20 documented as of this encounter
--- OUTSIDE RECORDS SUMMARY | 2023-10-04 01:04 | XMS_ITS | Encounter Summary ---
Author Organization [facility] Address [address] [place] [address] Care Team Providers Care Pony Ride Operator Name Role Phone Taylor Peña MD Primary Care Provider [phone] Encounter Details Date Type Department Care Team (Late st Contact Info) Description 07/18/2016 Results Only [facility] [phone] Harper Hadley MD [address] [place] [address] [phone] Social History Tobacco Use Types Packs/Day Years [...] Diagnosis Comments PAP TEST- RESULT ONLY Routine 07/18/2016 0:00 EDT documented in this encounter Results * PAP TEST- RESULT ONLY (07/18/2016 0:00 EDT) Pathology Report: CYTOPATHOLOGY REPORT Reports generated via electronic interface contain original data; however they are lacking the format of the original report. Caution should be taken when reading/interpreti ng unformatted reports. Name: ? WHITE, CODY ? Accession #: ? [id number] ? : ? 1970 (Age: 45) ??F ?Collect Date: ? 07/18/2016 ? Location: ? [facility] ? Receive Date: ? 07/19/2016 ? Provider: HARPER HADLEY MD Copy to: ? Final Report SPECIMEN ADEQUACY ? Satisfactory for Evaluation - transformation zone component present GENERAL CATEGORIZATION ? Negative for Intraepithelial Lesion or Malignancy INTERPRETATION ? Shift in rupesh present suggestive of bacterial vaginosis. Last Menstrual Period: 01/2016 Hormonal/Contracep tive status: None Previous Gynecologic Pathology: ASC-US: 03/2016 Infection History: Neg for HPV: HR 03/2016 Specimen/Source: ??Pap Test, Cervix, ThinPrep Imaging System with manual evaluation Document reviewed and electronically signed by: ? SUSSY Salas(ASCP) ? Report ??Date: 07/29/2016 15:37 HPV with Pap Test ? Date Ordered: ? 07/29/2016 ? Status: ?? Signed Out ?Date Complete: ? 08/01/2016 ? By: ??System Interface ? Date Reported: ? 08/01/2016 ? Interpretation RESULT: Negative for HPV. No E6 or E7 mRNA is detected from HPV types 16,18,31,33,35, 39,45,51,52,56,58, 59,66, and 68 by box estimator mediated amplification. Comments Document reviewed and electronically signed by: ? System Interface ? Report date: 08/01/2016 By the signature above, the attending physician certifies that he/she has personally conducted a gross and/or microscopic examination of the described specimens and rendered or confirmed the above diagnosis. End of Report [facility] 07/18/2016 07/19/2016 Harper Hadley MD [facility] Address City/State/ZIP Co de Phone Number [facility] [address] [place] [address] documented in this encounter Visit Diagnoses Not on filedocumented in this encounter Care Teams Pony Ride Operator Relationship Specialty Start Date End Date Taylor Peña MD [address] [place] [id number] PCP - General 08/13/13 02/27/20 documented as of this encounter
--- OUTSIDE RECORDS SUMMARY | 2023-10-04 01:04 | XMS_ITS | Encounter Summary ---
Author Organization [facility] Address [address] [place] [address] Care Team Providers Care Stationary Plant Operators Name Role Phone Unknown, Provider Primary Care Provider [phone] Taylor Peña MD Unavailable [phone] Encounter Details Date Type Department Care Team (Late st Contact Info) Description 05/03/2021 Lab [facility]quisition [facility] Pathology & Laboratory Medicine - [facility] [address] [place] [address] Simone Jimenez MD [address] [place] [address] Gross hematuria Social History Tobacco Use Types Packs/Day Years [...] Procedure Name Priority Date/Time Associated Diagnosis Comments NON MEDICAL AFFAIRS SPECIALIST/FNA CYTOLOGY Today 05/03/2021 15:27 EST documented in this encounter Results * NON MEDICAL AFFAIRS SPECIALIST/FNA CYTOLOGY (05/03/2021 15:27 EST) Note to Patient The following pathology results have been interpreted by your pathologist and may be available to you before your health provider has had the opportunity to review them. Please allow time for your provider to receive these results and explore management options, if applicable. 05/04/2021 17:22 [facility] Final Diagnosis URINE, VOIDED, CYTOLOGIC EVALUATION: - Negative for high grade urothelial carcinoma. - Background contains abundant squamous cell contamination. 05/04/2021 17:22 [facility] Attestation There was significant resident/jacob brand involvement in the diagnostic evaluation of this case. By the signature below, the attending physician certifies that they have personally conducted a gross and/or microscopic examination of the described specimens and rendered or confirmed the above diagnosis. 05/04/2021 17:22 [facility] at 1722 Clinical History Ryan hematuria; R31.0 05/04/2021 17:22 [facility] Gross Description A. 60cc's of clear pale yellow fluid were received and processed by selective cellular enhancement technique. 05/04/2021 17:22 [facility] Resident/Jacob w: Christina Napoles MD 05/04/2021 17:22 [facility] Performing Lab [facility] 05/04/2021 17:22 [facility] Scanned Images 05/04/2021 17:22 [facility] ZZUNK VOIDED URINE SPECIMEN / Unknown 05/03/2021 15:27 EST 05/04/2021 6:34 EST Simone Jimenez MD PATHOLOGY ORDERABLES [facility] [address] [place] [address] documented in this encounter Visit Diagnoses Diagnosis Gross hematuria documented in this encounter Care Teams Stationary Plant Operators Relationship Specialty Start Date End Date Unknown, Provider, PCP - General 02/28/20 Taylor Peña MD [address] [place] [id number] 02/28/20 documented as of this encounter
--- OUTSIDE RECORDS SUMMARY | 2023-10-04 01:04 | XMS_ITS | Encounter Summary ---
Author Organization [facility] Address [address] [place] [address] Care Team Providers Care Sheet Pile Hammer Operator Name Role Phone Taylor Peña MD Primary Care Provider [phone] Encounter Details Date Type Department Care Team (Late st Contact Info) Description 05/13/2014 Historical Results Only [facility] Lab - Main [place] [address] [place] [id number] Yasmin Crain, DO [address] [place] [address] Social History Tobacco Use Types Packs/Day Years [...] Date/Time Associated Diagnosis Comments PAP TEST Routine 05/13/2014 9:46 EDT documented in this encounter Results * PAP TEST (05/13/2014 9:46 EDT) 05/13/2014 9:46 EDT 05/15/2014 9:45 EDT Narrative [facility] - 05/20/2014 16:26 EDT ----- ------- Name: CODY FERRARO ? : 72 ?Age/Sex: 48/F ?Unit#: [id number] ? Loc: LAB.[facility] ? Status: REG REF ?? Reg Date: 05/13/14 ? Pt.Phone Number: ? ----- ------- Specimen: [id number] ?STATUS: SOUT ?Spec Date:05/13/14 ? Physician Copies: ?Shandra Crain Tissues: ? Cervical/Endo Pap ? CPT: ? Units: ??1 ----- ------- ? CYTOLOGY DIAGNOSIS SPECIMEN ADEQUACY: ?? Unsatisfactory for Evaluation: ??obscuring contaminate that may include lubricant which precludes interpretation of 75% or more of the epithelial cells. GENERAL CATEGORIZATION: ?? Specimen processed and examined. Unsatisfactory for evaluation of epithelial abnormality. ----- ------- ORDER QUERIES: LMP: ? - 02/2014 ? Post ?PREVIOUS ATYPICAL: Y BCP/HRT? ?? Rad Rx? ?? IUD?PAP PLUS HPV? Y ??REFLEX TO HR-HPV IF ASCUS ?? REFLEX TO HPV 16/18 IF HPV POS/PAP NEG Y HPV REGARDLESS?RFLX HPV IF LSIL ?? Signed Frederic Garcia CT(ASCP) 05/20/14 By the signature above, the attending physician certifies that he/she has personally conducted a gross and/or microscopic examination of the described specimens and rendered or confirmed the above diagnosis. Test Performed by [facility], [address] [address] Clinical Sociologist: Kerry Marinelli MD PHD ----- ------- Yasmin Crain DO PATHOLOGY OR DERABLES Performing Organization Address City/State/[facility] Co de Phone Number [facility] documented in this encounter Visit Diagnoses Not on filedocumented in this encounter Care Teams Sheet Pile Hammer Operator Relationship Specialty Start Date End Date Taylor Peña MD [address] [place] [address] PCP - General 08/13/13 02/27/20 documented as of this encounter
--- OUTSIDE RECORDS SUMMARY | 2023-10-04 01:04 | XMS_ITS | Clinical Summary ---
Author Organization [facility] Address [address] [place] [address] Care Team Providers Care Clinical Data Programmer Name Role Phone Unknown, Provider Primary Care Provider Taylor Peña MD Unavailable [phone] Allergies Active Allergy Reactions Criticality Noted Date [...] 12/24/2013 LPRD (laryngopharyngeal reflux disease) 08/21/19 14 Encounters Date Type Department Care Team Description 08/25/2023 Lab Requisition [facility] Pathology & Laboratory Medicine - [address] [address] Outr Resulting Lab, Provider from Last 3 Months Surgical History Surgery Date Site/Laterality Comments NASAL SINUS SURGERY TONSILLECTOMY THYROIDECTOMY, PARTIAL Medical History Medical History Date Comments Heartburn Migraines Unspecified sleep apnea Bowel disease Asthma Family History Medical History Relation Comments Cancer Maternal Aunt Cancer Maternal Grandmother Cancer Maternal Uncle Allergic Rhinitis Mother Asthma Mother Allergic Rhinitis Other Asthma Sister Relation Status Comments Maternal Aunt Maternal Grandmother Maternal Uncle Mother Other Alive Sister Social History Tobacco Use Types Packs/Day Years [...] 17:11 EDT Sexual Orientation Not on file Obstetrics History Last Filed Vital Signs Vital Sign Reading Time Taken Comments Blood Pressure 104/61 01/30/2014 1306 EST Pulse 110 01/30/2014 1306 EST Temperature - - Respiratory Rate - - Oxygen Saturation - - Inhaled Oxygen Concentration - - Weight 81.6 kg (180 lb) 01/30/2014 1306 EST Height 167.6 cm (5' 6) 01/30/2014 1306 EST Body Mass Index 29.05 01/30/2014 1306 EST Plan of Treatment Health Maintenance Due Date Last Done Comments Hepatitis B Vaccine (1 of 3 - 19+ 3-dose series) 07/23 COVID-19 Vaccine (2022- season) 2022 Hepatitis C Screen Completed 03/14/2008 Procedures Procedure Name Priority Date/Time Associated Diagnosis Comments FSH Routine 08/25/2023 7:31 EDT HEPATITIS C AB W REFLEX TO HCV RNA BY PCR Routine 03/14/2008 17:36 EST from Last 3 Months or Most Recently Relevant to Health Maintenance Results * FSH (08/25/2023 7:31 EDT) FSH 90.8 See Note mIU/mL 08/25/2023 22:56 EDT [facility] Blood VENOUS BLOOD / Unknown 08/25/2023 7:31 EDT 08/25/2023 22:02 EDT Narrative [facility] - 08/25/2023 22:56 EDT NOTE: [...] Resulting Lab CHEMISTRY & BLOOD GAS ORDERABLES [facility] [address] [place] [address] * HEPATITIS C ANTIBODY (03/14/2008 17:36 EST) Hepatitis C Ab Negative Reference Range: ??Negative [facility] 03/14/2008 17:3 6 EST 03/14/2008 21:39 EST Provider Unknown CHEMISTRY & BLOOD GA S ORDERABLES [facility] [address] [place] [address] from Last 3 Months or Most Recently Relevant to Health Maintenance Care Teams Clinical Data Programmer Relationship Specialty Start Date End Date Unknown, Provider, PCP - General 02/28/20 Taylor Peña MD [address] [place] [address] 02/28/20
--- OUTSIDE RECORDS SUMMARY | 2023-10-04 01:04 | XMS_ITS | Continuity of Care Document ---
Author Organization [facility] Address [address] [place] [address] Care Team Providers Care Blanket Winder Helper Name Role Phone Emily Dina C Primary Care Physician Encounter 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: [employer] Medications acetaminophen 325 mg oral tablet 650 mg = 2 tab, Oral, every 4 hr, PRN other (see comment), as needed, 0 Refill(s) Start Date: 07/08/21 Status: Ordered atorvastatin 20 mg oral tablet 20 mg = 1 tab, Oral, every morning, # 90 EA, 3 Refill(s), Pharmacy: [id number], 165, cm,08/14/21 10:33:00 EDT, [...] spasm, # 30 tab, 0 Refill(s), Pharmacy: [id number], 165, cm, 03/28/22 10:18:00 [...] hr, # 30 tab, 0 Refill(s), Pharmacy: [id number], 165, cm, 03/28/22 10:18:00 [...] BEDTIME, # 90 tab, 0 Refill(s), Pharmacy: [id number], 165, cm, 04/12/22 13:34:00 [...] meds as of . Lamictal 100mg BID. [place] ER 450mg 1 1/2 tabs qhs. cymbalta 60mg. Zalephon for sleep. Has seen Dr. Singer at [facility]. 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 We discussed trial of naltrexone for [...] to narcolepsy with cataplexy [facility] consultation 01/07/21 with additional imaging, [...] Address: [facility] [address] [address]- [place] Care Team Related Persons Name: EMY COBOS Address: Home [address] [place] [id number]
--- OUTSIDE RECORDS SUMMARY | 2023-10-04 01:04 | XMS_ITS | Encounter Summary ---
Author Organization [facility] Address [address] [place] [address] Care Team Providers Care Accounts Receivable Clerk Name Role Phone Taylor Peña MD Primary Care Provider [phone] Reason for Visit * Reason Onset Date Comments Appointment Related 01/31/2014 Encounter Details Date Type Department Care Team (Late st Contact Info) Description 01/31/2014 Telephone [facility] ENT - [place] [address] [place] [address] Juan Craig MD [address] [facility] [address] [place] [address] Appointment Related Social History Tobacco Use Types Packs/Day Years Used Date Smoking Tobacco: Never Alcohol Use Standard Drinks/Week Comments Yes 0 (1 standard drink = 0.6 oz pur e alcohol) occ Sex and Gender Information Value Date Recorded Sex Assigned at Female 05/26/2021 17:11 EDT Gender Identity Female 05/26/2021 17:11 EDT Sexual Orientation Not on file documented as of this encounter Miscellaneous Notes * Telephone Encounter - Laury Juarez RN - 02/03/2014 1125 EST Spoke with patient she is rescheduling with anethesia * Telephone Encounter - Laury Juarez RN - 01/31/2014 1308 EST Left message for patient to call regarding rescheduling her anesthesia appt. * Telephone Encounter - Stephani Hernandez - 01/31/2014 1032 EST Patient is calling to let Dr. Cragi know that she was not seen by anesthesiology yesterday. She waited over 1 1/2 hours and did not want to wait any longer. Please call @ [phone] documented in this encounter Plan of Treatment Not on file documented as of this encounter Visit Diagnoses Not on filedocumented in this encounter Care Teams Accounts Receivable Clerk Relationship Specialty Start Date End Date Taylor Peña MD [address] [place] [address] PCP - General 08/13/13 02/27/20 documented as of this encounter
--- OUTSIDE RECORDS SUMMARY | 2023-10-04 01:04 | XMS_ITS | Encounter Summary ---
Author Organization [facility] Address [address] [place] [address] Care Team Providers Care Chipper Operator Name Role Phone Taylor Peña MD Primary Care Provider [phone]- [phone] Encounter Details Date Type Department Care Team (Latest Contact Info) Description 08/19/2013 8:00 EDT - 08/19/2013 23:59 EDT Hospital Encounter [address] [address] Unknown, Provider, Discharge Disposition: Home or Self [...] 50 mg by mouth every 6 hours. documented as of this encounter Discharge Disposition Disposition Code Departure Means Destination Home or Self [place] documented in this encounter Plan of Treatment Not on file documented as of this encounter Visit Diagnoses Not on filedocumented in this encounter Care Teams Chipper Operator Relationship Specialty Start Date End Date Taylor Peña MD [address] [place] [address] PCP - General 08/13/13 02/27/20 documented as of this encounter
--- OUTSIDE RECORDS SUMMARY | 2023-10-04 01:04 | XMS_ITS | Encounter Summary ---
Author Organization [facility] Address [address] [place] [address] Care Team Providers Care Broomcorn Sorter Name Role Phone Unknown, Provider Primary Care Provider Taylor Peña MD Unavailable [phone] Encounter Details Date Type Department Care Team (Late st Contact Info) Description 04/24/2020 Lab Requisition [facility] Pathology & Laboratory Medicine - [facility] [address] [place] [address] Outr Resulting Lab, Provider Social History Tobacco [...] Comments ZZCOVID-19 TEST [facility] PCR Today 04/24/2020 10:03 EST COVID-19 TESTING Routine 04/24/2020 10:0 3 EST documented in this encounter Results * COVID-19 TEST [facility] PCR (04/24/2020 10:03 EST) Swab ENTIRE NASOPHARYNX / Unknown 04/24/2020 10:03 EST 04/24/2020 16:21 EST Provider Outr Resulting Lab MICROBIOLOGY - GENERAL ORDERABLES Performing Organization Address City/[facility]/ZIP Co de Phone Number [facility] [address] [place] [address] * COVID-19 TESTING (04/24/2020 10:03 EST) COVID-19 rt-PCR Result Negative Negative 04/25/2020 15:28 EST [facility] Comment: This test has not [...] clinical observations, patient history, and epidemiological information. This test was developed and its performance characteristics determined by [facility]. It has not been cleared or approved by the US Food and Drug Administration. FDA does not require this test to go through premarket FDA review. This test is used for clinical purposes. It should not be regarded as investigational or for research. This laboratory is certified under the Clinical Laboratory Improvement Amendments (CLIA) as qualified to perform high complexity clinical laboratory testing. This test is based on the [facility] COVID-19 Emergency Use Authorization (EUA) assay, with minor modification as defined by the FDA Performed on the Velocent Systemso 7 Flex RT-PCR System. Performing Lab [facility] 04/25/2020 15:28 EST [facility] Swab 04/24/2020 10:0 3 EST 04/24/2020 16:21 EST Provider Outr Resulting Lab MICROBIOLOGY - GENERAL ORDERABLES Performing Organization Address City/[facility]/ZIP Co de Phone Number [facility] [address] [place] [address] documented in this encounter Visit Diagnoses Not on filedocumented in this encounter Care Teams Broomcorn Sorter Relationship Specialty Start Date End Date Unknown, Provider, PCP - General 02/28/20 Taylor Peña MD [address] [place] [address] 02/28/20 documented as of this encounter
--- OUTSIDE RECORDS SUMMARY | 2023-10-04 01:04 | XMS_ITS | Encounter Summary ---
Author Organization [facility] Address [address] [place] [address] Care Team Providers Care Media Manager Name Role Phone Taylor Peña MD Primary Care Provider [phone]- [phone] Encounter Details Date Type Department Care Team (Late st Contact Info) Description 06/17/2014 Historical Results Only [facility] - Main [place] [address] [place] [address] Yasmin Crain, DO [address] [place] [address] Social History Tobacco Use Types Packs/Day Years [...] Date/Time Associated Diagnosis Comments PAP TEST Routine 06/17/2014 10:22 EDT documented in this encounter Results * PAP TEST (06/17/2014 10:22 EDT) 06/17/2014 10:2 2 EDT 06/19/2014 10:22 EDT Narrative [facility] - 06/26/2014 11:01 EDT ----- ------- Name: CODY FERRARO ? : 72 ?Age/Sex: 48/F ?Unit#: [id number] ? Loc: LAB[facility] ? Status: REG REF ?? Reg Date: 06/17/14 ? Pt.Phone Number: ? ----- ------- Specimen: [id number] ?STATUS: SOUT ?Spec Date:06/17/14 ? Physician Copies: ?Shandra Crain Tissues: ? Cervical/Endo Pap ? CPT: 24622 ?? Units: ??1 ----- ------- ? CYTOLOGY [...] and are also available online at [email or web address]. ----- ------- ?HPV DNA RESULTS ?? 06/17/14 1033 HPV DNA RESULT ??POS ? Positive for one or more of HPV types 16, 18, 31, 33, 35, ? 39, 45, 51, 52, 56, 58, 59, 66, or 68. ? Method: Simply Zestyista HPV HR (High Risk) DNA test. ----- ------- ORDER QUERIES: LMP: ? - 04/2014 ? Post ?PREVIOUS ATYPICAL: Y BCP/HRT? ?? Rad Rx? ?? IUD?PAP PLUS HPV? Y ??REFLEX TO HR-HPV IF ASCUS ?? REFLEX TO HPV 16/18 IF HPV POS/PAP NEG Y HPV REGARDLESS?RFLX HPV IF LSIL ?? Signed ____(signature on file)____ Kerry Marinelli M.D. 06/26/14 By the signature above, the attending physician certifies that he/she has personally conducted a gross and/or microscopic examination of the described specimens and rendered or confirmed the above diagnosis. Test Performed by [facility], [address] [place] [address] Cleaning Porter: Kerry Marinelli MD PHD ----- ------- Yasmin Crain DO PATHOLOGY OR DERABLES Performing Organization Address [facility]/State/ZIP Co de Phone Number [facility] documented in this encounter Visit Diagnoses Not on filedocumented in this encounter Care Teams Media Manager Relationship Specialty Start Date End Date Taylor Peña MD [address] [place] [address] PCP - General 08/13/13 02/27/20 documented as of this encounter
--- OUTSIDE RECORDS SUMMARY | 2023-10-04 01:04 | XMS_ITS | Encounter Summary ---
Author Organization [facility] Address [address] [place] [address] Care Team Providers Care Director Of Photography Name Role Phone Taylor Peña MD Primary Care Provider [phone]- [phone] Reason for Referral * Laboratory Services (Routine) - Closed Specialty Diagnoses / Procedures Referred By Contac t Referred To Contact Diagnoses Thyroid nodule Procedures CALCIUM Juan Craig MD [address] [place] [phone] Referral ID Status Reason Start Date Expiration Date Visits Re quested Visits Authorized Closed 12/31/2013 1 1 * Laboratory Services (Routine/Next Available) - Closed Specialty Diagnoses / Procedures Referred By Contac t Referred To Contact Diagnoses Thyroid nodule Procedures BASIC METABOLIC PANEL Juan Craig MD [address] [place] [phone] Referral ID Status Reason Start Date Expiration Date Visits Re quested Visits Authorized [id number] Closed 12/31/2013 1 1 * Laboratory Services (Routine) - Closed Specialty Diagnoses / Procedures Referred By Contac t Referred To Contact Diagnoses Thyroid nodule Procedures HEMAGRAM Juan Craig MD [address] [place] [phone] Referral ID Status Reason Start Date Expiration Date Visits Re quested Visits Authorized [id number] Closed 12/31/2013 1 1 Encounter Details Date Type Department Care Team ([facility] st Contact Info) Description 12/31/2013 Orders Only [facility] ENT - [place] [address] [place], [place] [id number] Juna Craig MD [address] [facility] [address] [place] [address] Thyroid nodule (Primary Dx) Social History [...] as of this encounter Plan of Treatment Scheduled Orders Name Type Priority Associated Diagnoses Orde r Schedule HEMAGRAM Lab Routine Thyroid Nodule Ordered: 12/31/2013 BASIC METABOLIC PANEL Lab Routine Thyroid Nodule Ordered: 12/31/2013 CALCIUM Lab Routine Thyroid Nodule Ordered: 12/31/2013 documented as of this encounter Visit Diagnoses Diagnosis Thyroid nodule- Primary Nontoxic uninodular goiter documented in this encounter Care Teams Director Of Photography Relationship Specialty Start Date End Date Taylor Peña MD [address] [place] [address] PCP - General 08/13/13 02/27/20 documented as of this encounter
--- OUTSIDE RECORDS SUMMARY | 2023-10-04 01:04 | XMS_ITS | Encounter Summary ---
Author Organization [facility] Address [address] [place] [address] Care Team Providers Care Kindergartners Helper Name Role Phone Taylor Peña MD Primary Care Provider [phone]- [phone] Reason for Visit * Reason Comments Advice Only consult for hemithyr oidectomy had bx july 23. has diffuculty swallowing which is getting worse. symptoms ongoing several years can be mild to severe. Encounter Details Date Type Department Care Team (Late st Contact Info) Description 12/24/2013 10:50 EDT Office Visit [facility] - [place] [address] [place] [address] Unknown, ProviderMD Juan Craig MD [address] [id number] Toxic thyroid nodule (Primary Dx); LPRD (laryngopharyngeal reflux disease) Social History Tobacco Use Types Packs/Day Years [...] Sign Reading Time Taken Comments Blood Pressure 97/70 12/24/2013 1130 EDT Pulse 109 12/24/2013 1130 EDT Temperature - - Respiratory Rate - - Oxygen Saturation - - Inhaled Oxygen Concentration - - Weight 81.6 kg (180 lb) 12/24/2013 1130 EDT Height 167.6 cm (5' 6) 12/24/2013 1130 EDT Body Mass Index 29.05 12/24/2013 1130 EDT documented in this encounter Progress Notes * Juan Craig MD - 12/24/2013 1142 EDT This is a consult from Rahel Barlow for evaluation of a toxic thyroid nodule. HISTORY OF PRESENT ILLNESS: [...] pole and a recent thyroid, ultrasound at [place], which showed an unchanged exophytic nodule in [...] Height 66 inches, weight 180. Blood pressure 97/70, pulse 109. Pain level of 10 in the neck. The face is normal without lesions. No tenderness. Salivary glands are normal. Facial strength is symmetric. Eye exam is normal. Ears: External ears are normal, canals are clear, tympanic membranes are normal. Hearing is intact. Nose: Nasal dorsum is midline, the airway is patent. Oral cavity is clear. Posterior pharynx is clear. Neck: No pathologic lymphadenopathy. Trachea is midline. Chest is clear to auscultation. Heart: Regular rate and rhythm, alth ough tachycardic. PROCEDURE: Fiberoptic endoscopy was performed with topical anesthesia. No evidence of nasal polyps or purulence. Nasopharynx is clear. [...] as an outpatient procedure under general anesthesia. cc: Rahel Peña documented in this encounter Plan of Treatment Not on file documented as of this encounter Visit Diagnoses Diagnosis Toxic thyroid nodule- Primary Toxic uninodular goiter without mention of thyrotoxic crisis or storm LPRD (laryngopharyngeal reflux disease) Other diseases of larynx documented in this encounter Discontinued Medications Medication Sig Discontinue Reason Start Date End Da te LITHIUM CARBONATE ORAL Take by mouth. 4 documented as of this encounter Historical Medications * This list may reflect changes made after this encounter. Medication Sig Dispensed Refills Start Date End Date divalproex ER (DEPAKOTE ER) 250 mg tablet Take 500 mg by mouth daily. CYCLOBENZAPRINE HCL (FLEXERIL ORAL) Take by mouth as needed. added in this encounter Care Teams Kindergartners Helper Relationship Specialty Start Date End Date Taylor Peña MD [address] [place] [id number] PCP - General 08/13/13 02/27/20 documented as of this encounter
--- OUTSIDE RECORDS SUMMARY | 2023-10-04 01:04 | XMS_ITS | Encounter Summary ---
Author Organization [facility] Address [address] [place] [address] Care Team Providers Care Math Teacher Name Role Phone Taylor Mejia MD Primary Care Provider [phone]- [phone] Encounter Details Date Type Department Care Team (Late st Contact Info) Description 09/03/2013 Historical Results Only [facility] Lab - Main [address] [address] Denzel Moore MD [address] [place] [id number] Social History Tobacco Use Types Packs/Day Years [...] Date/Time Associated Diagnosis Comments SURGICAL PATHOLOGY Routine 09/03/2013 10 :21 EDT documented in this encounter Results * SURGICAL PATHOLOGY (09/03/2013 10:21 EDT) 09/03/2013 10:2 1 EDT 09/03/2013 15:41 EDT Narrative [facility] - 09/04/2013 14:32 EDT ----- ------- Name: CODY FERRARO ? : 72 ?Age/Sex: 48/F ?Unit#: [id number] ? Loc: LAB[facility] ? Status: REG REF ?? Reg Date: 09/03/13 ? Pt.Phone Number: ? ----- ------- Specimen: [id number] ? STATUS: SOUT ?Spec Date:09/03/13 ? Physician Copies: ?Denzel Moore Tissues: A ?? Gastrointestinal Tract (ASCENDING COLON) ? TAYLOR MEJIA ? NT ??NO TISSUE ? CPT: 20433 ?? Units: ??1 ?FINAL DIAGNOSIS ? Ascending colon, 5 cm from ileocecal valve, polyp, biopsy; ? - Tubular adenoma. ? GROSS DESCRIPTION ? Received in formalin labeled with the patient's name and ascending 5 cm are ? three pink-archer soft tissue fragments ranging from 0.2 up to 0.4 cm in greatest ? dimension. ??e.s. ??RM ?? PREOP DX/CLINICAL HISTORY ?Screening colonoscopy Signed ____(signature on file)____ Kerry Marinelli M.D. 09/04/13 By the signature above, the attending physician certifies that he/she has personally conducted a gross and/or microscopic examination of the described specimens and rendered or confirmed the above diagnosis. Test Performed by [facility], [address] [place] [address] Sail Cutter: Kerry Marinelli MD PHD ----- ------- Denzel Moore MD PATHOLOGY ORDERABLE S [facility] documented in this encounter Visit Diagnoses Not on filedocumented in this encounter Care Teams Math Teacher Relationship Specialty Start Date End Date Taylor Mejia MD [address] [place] [address] PCP - General 08/13/13 02/27/20 documented as of this encounter
--- OUTSIDE RECORDS SUMMARY | 2023-10-04 01:05 | XMS_ITS | Encounter Summary ---
Author Organization [facility] [place] [address] Care Team Providers Care Metaphysician Name Role Phone Dina Diaz Primary Care Provider + Reason for Visit * Auth/Cert (Routine) Specialty Diagnoses / Procedures Referred By Contac t Referred To Contact Diagnoses HNP (herniated nucleus pulposus), lumbar RECURRENT LEFT L4/5 HNP Procedures PRO REDO EXCIS LUMBAR DISC LAMINOTOMY W\DECOMPRESSION, ONE LVL, LUMBAR ,RE-EXPL (INCLDNG PART. FACETECTOMY, FORAMINOTOMY &\OR DISCECTOMY) (WRVU 18.76) Hardy [place] [address] [facility] Referral ID Status Reason Start Date Expiration Date Visits Re quested Visits Authorized [id number] 1 1 Encounter Details Date Type Department Care Team (Late st Contact Info) Description 07/25/2023 7:30 AM EDT - 07/25/2023 10:00 AM EDT Surgery Operating Room [facility]enea [facility] [address] [place] [id number] Hardy Gregorio MD [address] [place] [address] LAMINOTOMY W\DECOMPRESSION, ONE LVL, LUMBAR ,RE-EXPL (INCLDNG PART. FACETECTOMY, FORAMINOTOMY &\OR DISCECTOMY) (WRVU 18.76) Social History Tobacco Use Types Packs/Day Years Used Date Smoking Tobacco: Never Smokeless Tobacco: Never Alcohol Use Standard Drinks/Week Comments Not Currently 0 (1 standard drink = 0.6 oz pur e alcohol) occasionally DH IPV Inpatient Questions Answer Date Recorded Does Anyone Try to Keep You From Having Contact with Others or Doing Things Outside Your Home? no 07/25/2023 Feels Threatened by Someone no 06/28 Feels Unsafe at Home or Work/School no 07/25/2023 Physical Signs of Abuse Present no 07/25/2023 Sex and Gender Information Value Date Recorded Sex Assigned at Female 09/09/2020 10:10 PM EDT Gender Identity Female 09/09/2020 10:10 PM EDT Sexual Orientation Straight 09/09/2020 10 :10 PM EDT documented as of this encounter Last Filed Vital Signs Vital Sign Reading Time Taken Comments Blood Pressure 105/73 07/25/2023 9:45 AM EDT Pulse 79 07/25/2023 9:45 AM EDT Temperature 36 ??C (96.8 ??F) 07/25/2023 9:45 AM EDT Respiratory Rate 15 07/25/2023 9:45 AM EDT Oxygen Saturation 99% 07/25/2023 9:45 AM EDT Inhaled Oxygen Concentration - - Weight 67.2 kg (148 lb 3.2 oz) 07/25/2023 6:32 A M EDT Height 165.1 cm (5' 5) 07/25/2023 6:32 AM EDT Body Mass Index 24.66 07/25/2023 6:32 AM EDT documented in this encounter Discharge Instructions * Patient Instructions* Zeke Bob PA - 07/25/2023 6:56 AM EDT Full recovery will depend on your having a strong, positive attitude, setting small goals for improvement and working steadily to accomplish each goal. FOLLOW UP APPOINTMENTS: You will be scheduled for a follow-up appointment four to six weeks after surgery with a Physician[employer] at the surgeon???s office. You will have a follow up appointment with the neurosurgeonin three months. If you have sutures that need to be removed, a suture removal appointment will be made for 10-14 days after surgery. MEDICATIONS: Take your medicine at the time your doctor ordered. Keep a list of your medicines, vitamins, and herbal supplement you take. Keep this list with you atall times. Show it to your caregiver at every visit. Keep the list up-to-date. Ask your caregiver or pharmacist to write an explanation of each medicine you are taking. This should include: why you are taking it, possible side effects, best time of day to take it, what foods totake the medication with or foods to avoid, and when to stop taking it. Only take dhwv-ekj-fzwtycs or prescription medicine for pain, discomfort or fever as directed by your caregiver. Consult your doctor or pharmacist with any questions. NEW MEDICATIONS AT DISCHARGE: []None []Given prescriptions in office preoperatively OR: Medication Dose/Route/ Frequency Prescription given? Reason for medication Medscape monograph discussed []Yes []No []Yes []No []Yes []No []Yes []No []Yes []No []Yes []No PAIN: It is normal to have pain after your surgery; especially in the lower back. This does not mean that the procedure was unsuccessful or that your recovery will be delayed. Leg aching is also not uncommon. This is primarily caused by inflammation of the previously compressed nerve. The discomfort will gradually decrease as the nerve continues to heal. You may also experience muscle spasms across your back and into your legs. Medications will be given to control pain and decrease spasm intensity. Moist heat and/or ice and frequent repositioning may also be helpful. DIET: You may adjust your diet back to normal as your appetite returns. Be sure to drink plenty of fluids, particularly water, and eat whole grain cereals, fruits and fruit juices to combat constipation that is sometimes caused by pain medications. If constipation does occur, an over the counter laxative is acceptable. Call your surgeon if you experience persistent nausea and vomiting. ACTIVITY: Increase your activity slowly. Daily walking is the best exercise. Try to increase your distance a little each day. Go at a pace that doesn???t make you too tired or cause too much pain. It is normal to tire easily for the first week or so after you return home. Swimming after ten to fourteen days is encouraged, if feasible. DO NOT sit for prolonged periods of time for six weeks following your surgery. Brief periods of time, not to exceed thirty minutes are acceptable (meals or using the bathroom). Change positions frequently to help eliminate muscle spasm and aching. When sitting, choose a firm chair that will provide plenty of support. DO NOT lift anything over five pounds. Keep in mind a gallon of milk weighs eight pounds. Do not lift anything that you cannot easily lift with one hand. If you drop something on the floor, pick it up by bending at the knees to lower yourself. DO NOT bend at the waist. ACTIVITY (continued): Sexual relations may be resumed during the recovery period, but positions that strain the back or cause pain should be avoided. Consult your surgeon in regards to your driving status. There are no set time restrictions. Use common sense and do not attempt to resume driving until you feel completely comfortable to drive in an uninhibited manner. It is recommended that you do not drive for the first 1-2 weeks or while taking narcotic pain relievers. You may resume other physical activities including work only after consulting with your treating physician. POST ANESTHESIA/SEDATION: You have received medication for sedation and comfort during your procedure. Because these have notcompletely left your system, please observe the following precautions: Plan to relax for the next several hours. DO NOT drive or operate machinery until the day after your procedure, longer as recommended by yoursurgeon. Avoid alcohol for the next 24 hours. Do not make any important personal or business decisions today. BANDAGE/SHOWERING: You will have Dermabond over the incision (typically a purple glue like substance), with inner sutures that do not need to be removed. The Dermabond will gradually fall off. You may have sutures that require removal. If these are used you will be scheduled for a suture removal appointment within 10 to 14 days of the procedure. You may shower after three to five days. Do NOT scrub the incision. Pat the area dry with a towel after showering. Avoid soaking (baths, hot tubs, swimming, etc) until approximately two weeks after your surgery, when your wound is all the way healed. SEEK IMMEDIATE MEDICAL CARE/CALL YOUR SURGEON IF: There is redness, swelling or increasing pain at the wound. SEEK IMMEDIATE MEDICAL CARE/CALL YOUR SURGEON IF (continued): You notice purulent (colored, pus-like) drainage coming from the wound. You notice a foul smell coming from the wound or bandage. You experience urinary problems. You experience any NEW weakness or numbness in your arms or legs. You develop an oral temperature above 101 degrees F. There is a breaking open of the wound. The edges do not stay together after the sutures or tape hasbeen removed. There is persistent bleeding from an incision. If you have any questions, please call [facility] at [phone], during business hours of Monday through Monday from 8:00 a.m. until 4:00 p.m. In case of emergency during non-business hours, please call the same main number and follow the prompts to page the neurosurgeon airway controller. SMOKING CESSATION INFORMATION: [place] QUITLINE: [place] QUITLINE: [email or web address] If you smoke, stop now! Smoking may impede healing. MAKE SURE YOU: Understand these instructions. Will seek medical care if you are feeling poor, or get worse. Will call the surgeon???s office with any questions or concerns at : [phone] The above information has been presented or demonstrated. I/we have had the opportunity to ask questions. I/we fully understand the instructions given. I/we have received a copy of this form. documented in this encounter Medications at Time of Discharge Medication Sig Dispensed Refills Start Date End Date traMADoL (Ultram) 50 mg tablet Take 1 tablet by mouth every 6 hours as needed for Pain. 15 tablet 07/25/2023 ketorolac (Toradol) 10 mg tablet Take 10 mg by mouth every 6 hours as needed for Pain (for migraine). levocetirizine (Xyzal) 5 mg tablet Take 5 mg by mouth as needed. naproxen sodium (ALEVE) 220 mg Capsule Take 220 mg by mouth every 12 hours as needed. rimegepant (Nurtec ODT) 75 mg disintegrating tablet Take 75 mg by mouth every other day. Qulipta 60 mg Tablet Take 1 tablet by mouth daily. 04/08/2022 azelastine (ASTELIN) 137 mcg (0.1 %) Aerosol, [place] Every 12 hours. 03/17/2020 baclofen (Lioresal) 10 mg Tablet 90 EA, TAKE 1 TABLET BY MOUTH THREE TIMES DAILY NEEDED FOR MILD TO MODERATE HEADACHES - MAX DAILY DOSE 3 TABLETS (30MG), 0 Refill(s) 04/06/2022 acetaminophen 500 mg Capsule Take 1 tablet by mouth as needed. hydrOXYzine (Atarax) 10 mg Tablet 1 tablet at onset of mild to moderate headache. Can repeat in 8-10 hours 30 tablet 2 02/03/2022 estradioL (ESTRACE) 0.01 % (0.1 mg/gram) CreamIndications:Dyspareu gloria, female Place 1 g vaginally twice a week. 42.5 g 12 11/25/2021 prochlorperazine (Compazine) 5 mg Tablet Take 2 tablets by mouth every 8 hours as needed (For headache associated migraine, also for nausea/vomiting). 15 tablet 3 06/29/2021 atorvastatin (Lipitor) 20 mg Tablet TAKE 1 TABLET BY MOUTH ONCE DAILY 07/01/2020 EPINEPHrine (EPIPEN) 0.3 mg/0.3 mL (1:1,000) Auto-InjectorIndications: Allergic rhinitis, unspecified allergic rhinitis type Inject 0.3 mLs into the muscle once as needed. 1 each 1 01/08/2015 documented as of this encounter Progress Notes * Anila Cerda RN - 07/25/2023 10:13 AM EDT Patient had an uneventful PACU recovery following laminotomy, decompression. Patient remained hemodynamically and neurologically intact throughout stay. Vital signs stable, see Doc flowsheets for specifics. Patient questioned and denied need to void prior to discharge times three. Explained importance of need to empty bladder post discharge within six hours, and if not to report to nearest emergency department. Discharge instructions reviewed with spouse and all questions answered. Patient ambulatory to waiting vehicle with this nurse, in stable condition. documented in this encounter H&P Notes * Zeke Bob PA - 07/25/2023 6:55 AM EDT Patient Name: Emilee Wilhelm Patient Age: 53 y.o. Birthdate: 1970 Admit date: 07/25/2023 Attending Physician: Hardy Gregorio MD The patient's history and physical exam have been reviewed and completed. There has been no interval change from that of the pre-operative history and physical exam done within the last 30 days. documented in this encounter Miscellaneous Notes * Op Note - Hardy Gregorio MD - 07/25/2023 7:49 AM EDT [facility] [place] [address] Patient Name: Emilee Wilhelm : [id number] MR#: [id number] Case Date: 07/25/2023 Case Scheduled Time: 729 Surgeon: Surgeons and Role: * Hardy Gregorio MD - Primary * Zeke Bob PA - Physician [employer] Preoperative diagnosis: RECURRENT LEFT L4/5 HNP Postoperative diagnosis: RECURRENT LEFT L4/5 HNP Actual procedures: Secondary left L4-5 hemilaminectomy, medial facetectomy, microsurgical discectomy. Lysis of adhesions. Use of the high-powered operative microscope required for lysis of adhesions and mobilization of the thecal sac and nerve root. Intraoperative fluoroscopy. Anesthesia: General Estimated Blood Loss: Minimal Specimens removed during surgery: None Drains: * No LDAs found * Surgical Closure: Primary Closure - skin incision is completely closed without any wires, brit, drains or other devices Disposition: awakened from anesthesia, extubated and taken to the recovery room in a stable condition, having suffered no apparent untoward event. Condition: doing well without problems Complications: None (Please see the Surgical Encounter Summary for any Implant and Specimen details pertinent to this patient.) Findings: Large disc herniation, scar tissue, thorough decompression. Correct level confirmed at multiple points throughout the surgery with intraoperative fluoroscopy and of course the intraoperative findings. No complications or problems. No csf. No unusual bleeding. No motor discharges. Sponge and needle counts correct. Surgical Indications: Emilee Wilhelm is a 53 y.o. year old female who is suffering from symptoms thought to be related to a large recurrent disc herniation at L4-5 on the left with associated scar tissue from her previous disc herniation and surgery. Please refer to my office notes for details of presentation, findings on exam, and medical decision making. she has requested that we considersurgical treatment of this condition. Pros and cons, rationale and risks, options and alternatives have been thoroughly reviewed. The patient acknowledges the extensive list of risk of this surgery as explained in no uncertain terms. The patient acknowledges that I cannot provide a guarantee regarding the success of the procedure, the avoidance of complication, or the durability of the result. There has been ample opportunity for the patient to ask and have answered any and all questions, seek any additional information needed to make an informed decision, or seek additional professional opinion if desired. Understanding all of this, she requests that we proceed with operation. Procedure Description: Emilee Wilhelm was brought into the operating room. she underwent induction of a general endotracheal anesthetic, positioned prone and padded appropriately. The back was then prepped and draped in usual sterile fashion. We paused to confirm the patient's name and identifying information, site and type of surgery to be performed, presence of films if needed, availability of all anticipated necessary equipment and implants, administration of antibiotics and discussionof all other data relevant and required by the preoperative check-list. Once this had all been confirmed, we proceeded to localize the operative level fluoroscopically. Incision was made in the midline, partially reopening the previous incision, to allow access to the operative level. Dissection ofthe subcutaneous tissues was carried out using the monopolar electrocautery. A self retaining retractor was inserted. We opened the lumbar fascia in the midline, preserving the interspinous ligament.We then elevated the paraspinal musculature on the left side at the L 4/5 level. This was done in th e subpereosteal plane and required traversal of the expected amount of scar tissue and her prior surgical field. A Davila retractor was utilized to maintain our exposure. We confirmed our level again with the fluoroscope. We brought in the high-powered operative microscope. We expanded the hemilaminotomy and medial facetectomy had previously been performed using the high-speed drill and a 2 mm Kerrison. We carefully developed a plane between the bone edge and the scar tissue associated withthe dura at the previous surgical site. The high- powered operative microscope was critically important here to allow us to carefully and safely develop this plane with lysis of the adhesions and mobil ization of the thecal sac. We could palpate the disc herniation through the scar tissue. Working carefully under the microscope we created a trajectory through the scar tissue to access the disc herniation. We then mobilized the disc material and removed it into large fragments. We entered the discspace retrograde through the large hiatus and removed any loose material in the disc space that seemed at high risk for reherniation. We could then palpate above and below the disc space with a shortball dissector finding no impediment. Lateral to the thecal sac the disc herniation had been completely removed. We did follow the course of the L5 nerve root and it was now unimpeded. Our exposure was from the mid aspect of the L4-5 neural foramen to the inferior aspect of the L5 pedicle. Please see the Findings section for additional detail. We inspected thoroughly to ensure complete hemostasis. The dura was soft and pulsatile. There was no CSF seen. The retractors were released. The soft tissues were inspected to ensure complete hemostasis. We then infiltrated the paraspinal musculature, subcutaneous and subcuticular tissues with 0.5% bupivacaine. The wound was flushed thoroughly with antibiotic irrigant. The effluent was crystal clear. Fentanyl epidural anesthetic was instilled. Thelumbar fascia was reapproximated with interrupted 2-0 Vicryl sutures. The subcutaneous tissues wereclosed with inverted 2-0 Vicryl sutures. The subcuticular layer was closed with inverted 3-0 Vicrylsutures. The skin edges were approximated with Dermabond, Benzoin and paper tape. The patient was then allowed to awaken from anesthetic and transferred to the post-anesthesia care unit in stable condition. Infection Bundle used? N/A Zeke Bob PA-C worked under my direction for the duration of the operative session. The lead recreation assistant adequately prepped the operative site and maintained the best possible exposure of anatomy incident to the procedure. Hardy Gregorio MD 07/25/2023 documented in this encounter Plan of Treatment Scheduled Orders Name Type Priority Associated Diagnoses Orde r Schedule CBC (with Diff) Lab Routine Displacement of lumbar intervertebral disc without myelopathy Expected: 07/06/2023, Expires: 01/05/2024 Comprehensive metabolic panel (non-fasting) Lab Routine Displacement of lumbar intervertebral disc without myelopathy Expected: 07/06/2023, Expires: 01/05/2024 documented as of this encounter Procedures Procedure Name Priority Date/Time Associated Diagnosis Comments XR FLUORO NO RAD <1HR - OR USE Routine 07/25/2023 8:40 AM EDT Redo Excis Lumbar Disc (23959) 07/25/2023 7:29 AM EDT RECURRENT LEFT L4/5 HNP POCT URINE Routine 07/25/2023 7:18 AM EDT documented in this encounter Results * XR Fluoro No Rad <1Hr - OR Use (07/25/2023 8:40 AM EDT) Narrative Dicom, Auditing User - 07/25/2023 8:40 AM EDT This exam is auto-finalizing. No interpretation was done. Hardy Gregorio MD IMG FLUORO ORDERABLE S * POCT urine (07/25/2023 7:18 AM EDT) POC Urine HCG Negative POC Control Internal Controls Acceptable 07/25/2023 7:18 AM EDT Hardy Gregorio MD POINT OF CARE TEST O RDERABLES documented in this encounter Visit Diagnoses Not on filedocumented in this encounter Administered Medications Inactive Administered Medications - up to 3 most recent administrations Medication Order MAR Action Action Date Dose Rate Site acetaminophen (Ofirmev) (1,000 mg/100 mL) infusion 1,000 mg 1,000 mg, Intravenous, at 400 mL/hr, Administer over 15 Minutes, ONCE, 1 dose, On Mon07/25/23 at 0900, Maximum dose of acetaminophen is 4000 mg from all sources in 24 hours. When ordered for pain, acetaminophen should be given even when other ordered pain medications are indicated. , PACU Recovery, Routine, Is ketorolac (Toradol) IV contraindicated? No, Can this patient tolerate oral medications or suppositories? Yes Given 07/25/2023 9:21 AM EDT 1,000 mg 400 mL/hr atropine (0.1 mg/mL) injection 0.5 mg 0.5 mg, Intravenous, ONCE PRN, 1 dose, Starting on Mon07/25/23 at 0836, Until Mon07/25/23 at 1230, Other, Atropine for bradycardia, PRN for HR less than 40 and symptomatic. Notify Anesthesia., PACU Recovery, Routine BUpivacaine (pf) (Marcaine) (5 mg/mL) 0.5% injection PRN, Starting on Mon07/25/23 at 0804, Until Mon07/25/23 at 1025, Intra-Operative (Intra-Procedure), Routine Given 07/25/2023 8:04 AM EDT 30 mLs 19- Surgical Site ePHEDrine (50 mg/mL) injection 12.5 mg 12.5 mg, Intravenous, ONCE PRN, 1 dose, Starting on Mon07/25/23 at 0836, Until Mon07/25/23 at 1230, ePHEDrine for Hypotension unresponsive to volume bolus, PRN for Systolic Blood Pressure 30% less than pre-op baseline and No Response to Fluid Bolus. Notify Anesthesia., PACU Recovery, Routine fentaNYL (pf) (50 mcg/mL) multi-dose injection 12.5-25 mcg 12.5-25 mcg, Intravenous, EVERY 5 MIN PRN, Starting on Mon07/25/23 at 0836, Until Mon07/25/23 at 1230, Pain, Give 12.5 mcg every 5 minutes PRN for mild to moderate pain (1-5) Give 25 mcg every 5 minutes PRN for moderate to severe pain (6-10). Hold for respiratory rate less than 10 per minute. Maximum dose 250 mcg over one hour. If multiple pain medications are ordered, start with HYDROmorphone or morphine and use fentaNYL for breakthrough pain., PACU Recovery, Routine HYDROmorphone (Dilaudid) (1 mg/mL) injection syringe 0.2-0.4 mg 0.2-0.4 mg, Intravenous, EVERY 5 MIN PRN, Starting on Mon07/25/23 at 0836, Until Mon07/25/23 at 1230, Pain, Give 0.2 mg every 5 minutes PRN for mild to moderate pain (1-5) Give 0.4 mg every 5 minutes PRN for moderate to severe pain (6-10). Hold for respiratory rate less than 10 per minute. Maximum dose 4 mg over one hour. If multiple pain medications are ordered, start with HYDROmorphone or morphine and use fentaNYL for breakthrough pain., PACU Recovery, Routine lactated ringers infusion 1,000 mL, at 50 mL/hr, Intravenous, CONTINUOUS, Starting on Mon07/25/23 at 0700, Until Mon07/25/23 at 1230, Day of Surgery (Day of Procedure) New Bag 07/25/2023 7:29 AM EDT naloxone (Narcan) (0.4 mg/mL) injection 0.04 mg 0.04 mg, Intravenous, EVERY 5 MIN PRN, 3 doses, Starting on Mon07/25/23 at 0836, Until Mon07/25/23 at 1230, Opioid Reversal, for respiratory rate less than 6 or unresponsive., May repeat every 5 minutes to increase respiratory rate. DO NOT exceed 0.12 mg total dose. Notify anesthesia immediately if administered., PACU Recovery, Routine ondansetron (pf) (Zofran) (2 mg/mL) injection 4 mg 4 mg, Intravenous, EVERY 30 MIN PRN, Starting on Mon07/25/23 at 0836, Until Mon07/25/23 at 1230, Nausea, May repeat 4 mg once in 30 minutes. If multiple antiemetics ordered, use ondansetron first and if ineffective use prochlorperazine second., PACU Recovery, Routine sodium chloride 0.9 % (flush) (BD PosiFlush Normal Saline 0.9) flush 5-20 mL 5-20 mL, Intravenous, EVERY 1 MIN PRN, Starting on Mon07/25/23 at 0644, Until Mon07/25/23 at 1230, flush, Flush pertains to all indwelling lines. Flush per protocol found in the job aid using the link provided on this medication record., Day of Surgery (Day of Procedure), Routine sodium chloride 0.9% 250 mL IV bolus at 1,500 mL/hr, Intravenous, ONCE PRN, 1 dose, Starting on Mon07/25/23 at 0836, Until Mon07/25/23 at 1230, 250 mL bolus for Systolic Blood Pressure 30% less than pre-op baseline. Notify Anesthesia., PACU Recovery documented in this encounter Active and Recently Administered Medications Times are shown in EDT. Scheduled Medication Order 07/23/2023 2023 07/25/2023 acetaminophen (Ofirmev) (1,000 mg/100 mL) infusion 1,000 mg (COMPLETED) 1,000 mg, Intravenous, at 400 mL/hr, Administer over 15 Minutes, ONCE, 1 dose, On Mon07/25/23 at 0900, Maximum dose of acetaminophen is 4000 mg from all sources in 24 hours. When ordered for pain, acetaminophen should be given even when other ordered pain medications are indicated. , PACU Recovery, Routine, Is ketorolac (Toradol) IV contraindicated? No, Can this patient tolerate oral medications or suppositories? Yes 0921 (Given - Provid er: Anila Cerda RN) ceFAZolin (Ancef) 2 g vial attach to sodium chloride 0.9% 100 mL Mini-Bag Plus (COMPLETED) 2 g, Intravenous, ONCE, 1 dose, On Mon07/25/23 at 0645, Administer over 30 Minutes, To be administered upon arrival to the OR within one hour prior to incision., Day of Surgery (Day of Procedure), Indication for (Active or Suspected): Prophylaxis 0741 (New Bag - Prov ider: Nathan Becerril CRNA) Continuous Medication Order 07/23/2023 2023 07/25/2023 lactated ringers infusion 1,000 mL, at 50 mL/hr, Intravenous, CONTINUOUS, Starting on Mon07/25/23 at 0700, Until Mon07/25/23 at 1230, Day of Surgery (Day of Procedure) 0729 (Nick Bag - Prov ider: Nathan Becerril CRNA) PRN Medication Order 07/23/2023 2023 07/25/2023 atropine (0.1 mg/mL) injection 0.5 mg 0.5 mg, Intravenous, ONCE PRN, 1 dose, Starting on Mon07/25/23 at 0836, Until Mon07/25/23 at 1230, Other, Atropine for bradycardia, PRN for HR less than 40 and symptomatic. Notify Anesthesia., PACU Recovery, Routine BUpivacaine (pf) (Marcaine) (5 mg/mL) 0.5% injection (CANCELED) PRN, Starting on Mon07/25/23 at 0804, Until Mon07/25/23 at 1025, Intra-Operative (Intra-Procedure), Routine 0804 (Given - Provid er: Hardy Gregorio MD) ePHEDrine (50 mg/mL) injection 12.5 mg 12.5 mg, Intravenous, ONCE PRN, 1 dose, Starting on Mon07/25/23 at 0836, Until Mon07/25/23 at 1230, ePHEDrine for Hypotension unresponsive to volume bolus, PRN for Systolic Blood Pressure 30% less than pre-op baseline and No Response to Fluid Bolus. Notify Anesthesia., PACU Recovery, Routine fentaNYL (pf) (50 mcg/mL) multi-dose injection 12.5-25 mcg 12.5-25 mcg, Intravenous, EVERY 5 MIN PRN, Starting on Mon07/25/23 at 0836, Until Mon07/25/23 at 1230, Pain, Give 12.5 mcg every 5 minutes PRN for mild to moderate pain (1-5) Give 25 mcg every 5 minutes PRN for moderate to severe pain (6-10). Hold for respiratory rate less than 10 per minute. Maximum dose 250 mcg over one hour. If multiple pain medications are ordered, start with HYDROmorphone or morphine and use fentaNYL for breakthrough pain., PACU Recovery, Routine HYDROmorphone (Dilaudid) (1 mg/mL) injection syringe 0.2-0.4 mg 0.2-0.4 mg, Intravenous, EVERY 5 MIN PRN, Starting on Mon07/25/23 at 0836, Until Mon07/25/23 at 1230, Pain, Give 0.2 mg every 5 minutes PRN for mild to moderate pain (1-5) Give 0.4 mg every 5 minutes PRN for moderate to severe pain (6-10). Hold for respiratory rate less than 10 per minute. Maximum dose 4 mg over one hour. If multiple pain medications are ordered, start with HYDROmorphone or morphine and use fentaNYL for breakthrough pain., PACU Recovery, Routine naloxone (Narcan) (0.4 mg/mL) injection 0.04 mg 0.04 mg, Intravenous, EVERY 5 MIN PRN, 3 doses, Starting on Mon07/25/23 at 0836, Until Mon07/25/23 at 1230, Opioid Reversal, for respiratory rate less than 6 or unresponsive., May repeat every 5 minutes to increase respiratory rate. DO NOT exceed 0.12 mg total dose. Notify anesthesia immediately if administered., PACU Recovery, Routine ondansetron (pf) (Zofran) (2 mg/mL) injection 4 mg 4 mg, Intravenous, EVERY 30 MIN PRN, Starting on Mon07/25/23 at 0836, Until Mon07/25/23 at 1230, Nausea, May repeat 4 mg once in 30 minutes. If multiple antiemetics ordered, use ondansetron first and if ineffective use prochlorperazine second., PACU Recovery, Routine sodium chloride 0.9 % (flush) (BD PosiFlush Normal Saline 0.9) flush 5-20 mL 5-20 mL, Intravenous, EVERY 1 MIN PRN, Starting on Mon07/25/23 at 0644, Until Mon07/25/23 at 1230, flush, Flush pertains to all indwelling lines. Flush per protocol found in the job aid using the link provided on this medication record., Day of Surgery (Day of Procedure), Routine sodium chloride 0.9% 250 mL IV bolus at 1,500 mL/hr, Intravenous, ONCE PRN, 1 dose, Starting on Mon07/25/23 at 0836, Until Mon07/25/23 at 1230, 250 mL bolus for Systolic Blood Pressure 30% less than pre-op baseline. Notify Anesthesia., PACU Recovery documented in this encounter Care Teams Metaphysician Relationship Specialty Start Date End Date Dina Diaz PA [address] [place] [address] [place] [address] PCP - General Internal Medicine 05/26/20 documented as of this encounter
--- OUTSIDE RECORDS SUMMARY | 2023-10-04 01:05 | XMS_ITS | Encounter Summary ---
Author Organization [facility] Address [address] [place] [address] Care Team Providers Care Vb Developer Name Role Phone Tracey Butler NP Primary Care Provider Unavailelayne e Encounter Details Date Type Department Care Team (Late st Contact Info) Description 11/17/2003 Results Only [facility] conversion [address] [place] [address] Unknown, Provider, Social History Tobacco Use Types Packs/Day Years Used Date Smoking Tobacco: Never Assessed Sex and Gender Information Value Date Recorded Sex Assigned at Female 05/26/2021 17:11 EDT Gender Identity Female 05/26/2021 17:11 EDT Sexual Orientation Not on file documented as of this encounter Plan of Treatment Not on file documented as of this encounter Procedures Procedure Name Priority Date/Time Associated Diagnosis Comments LYME ANTIBODY Routine 11/17/2003 17:25 EDT RHEUMATOID FACTOR Routine 11/17/2003 17: 25 EDT ANTI NUCLEAR AB (SHERIDAN), IFA Routine 11/17/2003 17:25 EDT FOLATE Routine 11/17/2003 17:25 EDT VITAMIN B12 Routine 11/17/2003 17:25 EDT documented in this encounter Results * RHEUMATOID FACTOR (11/17/2003 17:25 EDT) Rheumatoid Factor <20 <20 IU/ml [facility] 11/17/2003 17:2 5 EDT 11/18/2003 20:00 EDT Provider Unknown CHEMISTRY & BLOOD GA S ORDERABLES Performing Organization Address [facility] de Phone Number [facility] [address] [place] [address] * LYME ANTIBODY (11/17/2003 17:25 EDT) Lyme Ab Neg NEGAT [facility] 11/17/2003 17:2 5 EDT 11/18/2003 20:00 EDT Provider Unknown IMMUNOLOGY AND SEROL OGY ORDERABLES Performing Organization Address [facility] de Phone Number [facility] [address] [place] [address] * FOLATE (11/17/2003 17:25 EDT) Folate >24.0 ng/mL [facility] Comment: Deficient: ??Less than 3.4 ng/mL Indeterminate: ??3.4-5.4 ng/mL Normal: ??Greater than 5.4 ng/mL 11/17/2003 17:2 5 EDT 11/18/2003 20:00 EDT Provider Unknown CHEMISTRY & BLOOD GA S ORDERABLES Performing Organization Address [facility] de Phone Number [facility] [address] [place] [address] * VITAMIN B12 (11/17/2003 17:25 EDT) Vitamin B-12 702 250 - 1100 pg/ml [facility] 11/17/2003 17:2 5 EDT 11/18/2003 20:00 EDT Provider Unknown CHEMISTRY & BLOOD GA S ORDERABLES Performing Organization Address [facility] Co de Phone Number [facility] [address] [place] [address] * ANTI NUCLEAR ANTIBODY (11/17/2003 17:25 EDT) Anti Nuclear Ab <40 0 - 40 Dils [facility] 11/17/2003 17:2 5 EDT 11/18/2003 20:00 EDT Provider Unknown IMMUNOLOGY AND SEROL OGY ORDERABLES Performing Organization Address City/State/[facility] Co de Phone Number [facility] [address] [place] [address] documented in this encounter Visit Diagnoses Not on filedocumented in this encounter Care Teams Vb Developer Relationship Specialty Start Date End Date Tracey Butler, PADDER PCP - General 08/08/08 08/12/13 documented as of this encounter
--- OUTSIDE RECORDS SUMMARY | 2023-10-04 01:05 | XMS_ITS | Encounter Summary ---
Author Organization [facility] Address [address] [place] [address] Care Team Providers Care Health Analytics Consultant Name Role Phone Tracey Butler NP Primary Care Provider Taylor Quevedo MD Primary Care Provider Unknown, Provider Primary Care Provider [phone] Taylor Peña MD Unavailable [phone] Encounter Details Date Type Department Care Team (Late st Contact Info) Description 04/25/2008 Before PRISM Converted Visit ([place]) [facility] conversion [address] [place] [address] Tracey Butler NP Social History Tobacco Use Types Packs/Day Years Used Date Smoking Tobacco: Never Assessed Sex and Gender Information Value Date Recorded Sex Assigned at Female 05/26/2021 17:11 EDT Gender Identity Female 05/26/2021 17:11 EDT Sexual Orientation Not on file documented as of this encounter Plan of Treatment Not on file documented as of this encounter Procedures Procedure Name Priority Date/Time Associated Diagnosis Comments MM DIGITAL MAMMO DIAG BILAT G0204 05/09/2008 14:52 EDT MM DIGITAL MAMMO SCREEN CARLOS W CAD* 04/25/2008 9:13 EST documented in this encounter Results * MM DIGITAL MAMMO DIAG BILAT G0204 (05/09/2008 14:52 EDT) Anatomical Region Laterality Modality Other 05/09/2008 14:5 2 EDT Narrative 06/24/2008 2:40 EDT bilat breast f/u This report has been dictated at [facility]. ??If you would like a copy of this report, please call . Procedure Note Cortney Doe MD - 06/24/2008 bilat breast f/u This report has been dictated at [facility]. If you would like a copy of this report, please call . Tracey Butler SOLDERING MACHINE SETTER IMG NM ORDERABLES * MM DIGITAL MAMMO SCREEN CARLOS W CAD* (04/25/2008 9:13 EST) Anatomical Region Laterality Modality Other 04/25/2008 9:13 EST Narrative 06/24/2008 2:07 EDT BASELINE SCREENING This report has been dictated at [facility]. ??If you would like a copy of this report, please call . Procedure Note Cortney Deo MD - 06/24/2008 BASELINE SCREENING This report has been dictated at [facility]. If you would like a copy of this report, please call . Tracey Fonseca [place] SOLDERING MACHINE SETTER IMG NM ORDERABLES documented in this encounter Visit Diagnoses Not on filedocumented in this encounter Care Teams Health Analytics Consultant Relationship Specialty Start Date End Date Tracey Butler NP PCP - General 08/08/08 08/12/13 Taylor Peña MD [address] [place] [address] PCP - General 08/13/13 02/27/20 Unknown, MD [address] [place] [address] PCP - General 02/28/20 Taylor Peña MD [address] [place] [address] 02/28/20 documented as of this encounter
--- OUTSIDE RECORDS SUMMARY | 2023-10-04 01:05 | XMS_ITS | Encounter Summary ---
Author Organization [facility] Address [address] [place] [address] Care Team Providers Care Managed Care Specialist Name Role Phone Tracey Butler NP Primary Care Provider Taylor Quevedo MD Primary Care Provider + [phone] Unknown, Provider Primary Care Provider [phone] Taylor Peña MD Unavailable [phone] Encounter Details Date Type Department Care Team (Late st Contact Info) Description 07/27/2007 Before PRISM Converted Visit ([place]) [facility] [place] conversion [address] [place] [address] Dee Malone MD [address] [place] [phone] Social History Tobacco Use Types Packs/Day Years Used Date Smoking Tobacco: Never Assessed Sex and Gender Information Value Date Recorded Sex Assigned at Female 05/26/2021 17:11 EDT Gender Identity Female 05/26/2021 17:11 EDT Sexual Orientation Not on file documented as of this encounter Plan of Treatment Not on file documented as of this encounter Procedures Procedure Name Priority Date/Time Associated Diagnosis Comments XR ANKLE [id number] 07/27/2007 13: 31 EDT documented in this encounter Results * XR ANKLE 3V [id number] (07/27/2007 13:31 EDT) Anatomical Region Laterality Modality Other 07/27/2007 13:3 1 EDT Narrative 08/10/2008 13:13 EDT lt ankle pn weakness This report has been dictated at [facility]. ??If you would like a copy of this report, please call . Procedure Note Abel Metcalf MD - 08/10/2008 lt ankle pn weakness This report has been dictated at [facility]. If you would like a copy of this report, please call . Dee Malone MD IMG DIAGNOSTIC IMAGI NG ORDERABLES documented in this encounter Visit Diagnoses Not on filedocumented in this encounter Care Teams Managed Care Specialist Relationship Specialty Start Date End Date Tracey Butler NP PCP - General 08/08/08 08/12/13 Taylor Peña MD [address] [place] [address] PCP - General 08/13/13 02/27/20 Unknown, Nubia, [address] [place] [address] PCP - General 02/28/20 Taylor Peña MD [address] [place] [address] 02/28/20 documented as of this encounter
--- OUTSIDE RECORDS SUMMARY | 2023-10-04 01:05 | XMS_ITS | Encounter Summary ---
Author Organization [facility] [place] [address] Care Team Providers Care Sports Attorney Name Role Phone Dina Diaz Primary Care Provider + Reason for Visit * Auth/Cert (Routine) Specialty Diagnoses / Procedures Referred By Contkirby t Referred To Contact Diagnoses Chest pain, unspecified Chest pain, unspecified type [R07.9] Procedures PRG CATH PLMT LEFT HEART CATH & ARTS W/INJ & ANGIO IMG S&I CARDIAC CATHETERIZATION CORONARY ANGIOGRAPHY; W LHC,POSSIBLE PCI (WRVU 5.6) Preet Yanez MD [facility] [place] [address] [facility] Referral ID Status Reason Start Date Expiration Date Visits Re quested Visits Authorized [id number] 1 1 Encounter Details Date Type Department Care Team (Late st Contact Info) Description 09/12/2022 11:30 AM EDT - 09/12/2022 12:30 PM EDT Surgery [place] [address] Preet Yanez MD [facility] [place] [address] CARDIAC CATHETERIZATION Social History Tobacco Use Types Packs/Day Years Used Date Smoking Tobacco: Never Smokeless Tobacco: Never Tobacco Cessation:Counseling Given: Not Answered Alcohol Use Standard Drinks/Week Comments Not Currently 0 (1 standard drink = 0.6 oz pur e alcohol) occasionally DH IPV Inpatient Questions Answer Date Recorded Does Anyone Try to Keep You From Having Contact with Others or Doing Things Outside Your Home? no 09/12/2022 Feels Threatened by Someone no 08/27 Feels Unsafe at Home or Work/School no 09/12/2022 Physical Signs of Abuse Present Not on file 09/12/2022 Sex and Gender Information Value Date Recorded Sex Assigned at Female 09/09/2020 10:10 PM EDT Gender Identity Female 09/09/2020 10:10 PM EDT Sexual Orientation Straight 09/09/2020 10 :10 PM EDT documented as of this encounter Last Filed Vital Signs Vital Sign Reading Time Taken Comments Blood Pressure - - Pulse 84 09/12/2022 11:25 AM EDT Temperature 36.7 ??C (98.1 ??F) 09/12/2022 1 1:25 AM EDT Respiratory Rate 16 09/12/2022 11:2 5 AM EDT Oxygen Saturation - - Inhaled Oxygen Concentration - - Weight 65.7 kg (144 lb 14.4 oz) 023 11:25 AM EDT Height 165.1 cm (5' 5) 09/12/2022 11:2 5 AM EDT Body Mass Index 24.11 09/12/2022 11:25 AM EDT documented in this encounter Discharge Instructions * Discharge Instructions* Radha Vaughan RN - 09/12/2022 2:15 PM EDT Radial Access for Heart Cath Activity If you are discharged the same day as your procedure, do not drive yourself home. Arrange to have another person drive. You may walk around when you get home, but keep your activity at a minimum until the morning. Try to avoid bending your wrist for the first 12-24 hours after the procedure to allow the artery to fully heal. Do not participate in active sports for 48 hours. Do not lift anything greater than 5 lbs. You may engage in sexual activity after 48 hours. Catheter Insertion Area Care Take the dressing off of the catheter insertion site the morning following the procedure. Leave thesite open to air. If the site is oozing you may cover it with a band aid. You may take a shower if you wish. Look for signs of infection over the next several days. It is uncommon to have any visible blood at the site, any obvious bleeding is abnormal. A bruise around the wrist or small lump under the skin is normal: they generally disappear in 3-5 days. Expect some mild tenderness over the area where the catheter was inserted. You will notice this after the local anesthetic (numbing medicine) wears off. This should improve during the 24-48 hours after the procedure. You may use acetaminophen (tylenol) if needed. Contact your doctor if the discomfort worsens. Problems to Watch for If there is bright red blood flowing from the catheter insertion area: *stop what you are doing *hold pressure steadily on the area for 15 minutes *call for help *if the bleeding does not stop in 15 minutes call 911 for an ambulance. If there is swelling with black and blue color at the catheter insertion site, there may be bleeding inside. Contact the doctor if there is any increase in size. Look at the insertion site for the first few days at home. Signs of infection are: *redness *swelling *yellow, white, green or brown foul smelling drainage. *increased soreness If you think there is an infection, take your temperature. Then call your doctor. The limb on the side where you had your catheterization should look and feel normal in color, sensation, and temperature. If your hand or fingers become cool, pale, blue or change color contact your doctor. If you are having numbness or tingling in your fingers or hand contact your doctor. If you feel faint or dizzy, lie down with your feet elevated. Have someone call the doctor. If you are alert, drink fluids. How to Deal with Chest Pain If you had only the cardiac catheterization, treat any angina or chest discomfort as instructed. Stop what you are doing, and sit or lie down. If prescribed, take nitroglycerin under your tongue. If the angina isn't relieved, take another nitroglycerin in 5 minutes. After another 5 minutes, a third nitroglycerin may be taken. If the angina isn't improved you should call for an ambulance to bring you to the nearest hospital emergency room. If your angina is more frequent or severe than before, contact your doctor. We usually would not expect you to have angina after an angioplasty. If you do get angina, treat itas you did before, but also contact your doctor. Return to Work The doctor will usually have told you when to return to work. If you do not perform heavy physical labor, most people can return to work in a few days. Diet Follow your previous diet unless otherwise instructed. Cardiac Risk Factor If you have coronary artery disease, it is important that you help control it by reducing your cardiac risk factors. If you smoke, we urge you to stop now. If you think this is going to be a problem,let us know so that we may help you. We have dieticians who can help you learn about a low fat, lowcholesterol diet. Cardiac rehabilitation programs can help you set up a regular exercise program. Work with your doctor if you have high blood pressure or sugar diabetes to keep these under control. Medications Take your usual medications medication changes If you are taking medications prescribed by your doctor, do not take any qlhu-wbe-gwnfhxm medicinesor herbal preparations without first discussing this with your doctor or pharmacist. There is the possibility of side effects and interactions when these are combined. Follow Up Care Who to call with questions or problems If there are any questions or problems that you think might be related to your cardiac cath or angioplasty, contact the brake tester english division chair by calling [facility] at . documented in this encounter Medications at Time of Discharge Medication Sig Dispensed Refills Start Date End Date rimegepant (Nurtec ODT) 75 mg disintegrating tablet Take 75 mg by mouth every other day. Qulipta 60 mg Tablet Take 1 tablet by mouth daily. 04/08/2022 azelastine (ASTELIN) 137 mcg (0.1 %) Aerosol, [employer] Every 12 hours. 03/17/2020 baclofen (Lioresal) 10 [...] 02/03/2022 estradioL (ESTRACE) 0.01 % (0.1 mg/gram) CreamIndications:Dyspare unia, female Place 1 g vaginally twice a week. 42.5 g 12 11/25/2021 prochlorperazine (Compazine) 5 mg Tablet Take 2 tablets by mouth every 8 hours as needed (For headache associated migraine, also for nausea/vomiting). 15 tablet 3 06/29/2021 atorvastatin (Lipitor) 20 mg Tablet TAKE 1 TABLET BY MOUTH ONCE DAILY 07/01/2020 EPINEPHrine (EPIPEN) 0.3 mg/0.3 mL (1:1,000) Auto-InjectorIndications :Allergic rhinitis, unspecified allergic rhinitis type Inject 0.3 mLs into the muscle once as needed. 1 each 1 01/08/2015 ivabradine (Corlanor) 5 mg tablet Take 2.5 mg by mouth. 06/14/2022 07/18/2023 cyclobenzaprine (Flexeril) 5 mg Tablet See Instructions, Take 1-2 tablets every 8 hours as needed for muscle spasm, # 30 tab, 0 Refill(s), Pharmacy: [id number], 165, cm, 08/14/21 10:33:00 EDT, Height/Length Dosing, 56, kg, 08/14/21 10:33:00 EDT, Weight Dosing 01/11/2022 07/25/2023 erenumab-aooe (Aimovig Autoinjector) 140 mg/mL Auto-Injector 07/25/2023 B2-magnesium cit,oxid-feverfew 200-180-50 mg Tablet every 24 hours. 06/28 Cetirizine (ZyrTEC) 10 mg Capsule every 24 hours. 07/25/2023 gabapentin (Neurontin) 100 mg Capsule Take 100 mg by mouth 3 times daily. 07/18/2023 predniSONE (Deltasone) 20 mg Tablet Take 20 mg by mouth 2 times daily. 07/18/2023 vilazodone (Viibryd) 20 mg Tablet Take 20 mg by mouth daily. 02/16/2022 07/25/2023 ubrogepant (Ubrelvy) 100 mg Tablet Take 1 tablet by mouth as needed (Take at onset of migraine, can repeat dose in 2 hours. Max dose of 200 mg). 9 tablet 5 08/16/2021 07/25/2023 traZODone (Desyrel) 100 mg Tablet Take 100 mg by mouth nightly. 05/06/2020 07/25/2023 documented as of this encounter H&P Notes * Miguel Buchanan MD - 09/12/2022 10:00 AM EDT Images from the original note were not included. Patient Name: Emilee Wilhelm Patient Age: 52 y.o. Birthdate: 1970 Admit date: (Not on file) Attending Physician: Preet Yanez MD Patient Information: Patient Name: Emilee Wilhelm PCP: THANIA Azar PCP Referring Slot Machine Key Person: Ilan Feldman MD Reason for Referral: Angina Brief History: 52 y.o. female presents for LHC/Cors for angina x5 years. She notes that she has chest pain which is central which occurs often with exertion, sometimes at rest. She notes this has not changed over the years, is mild and non-limiting in symptoms. She had a possible area of mild ischemia on the anterior wall on a NM stress 08/02/22. She has had no other issues. She has a FH of heart disease and HLD.No other risk factors. Emilee Wilhelm has not observed fevers, chills or substantive changes in health since the pre-catheterization clinic visit. No planned upcoming surgeries. No recent or ongoing bleeding events. No black stools. Aspirin status: None P2Y12 status: None No outpatient medications have been marked as taking for the 09/12/22 encounter (Hospital Encounter). There were no vitals taken for this visit. PE NAD CV: RR, No M/R/G, JVP estimated @ cm H2O Pulm: CTAB, no w/r/r Abd: soft, NT, ND, +BS, no bruits Vasc: radial pulses 2+, femoral pulses 2+ w/o bruits, DP/PT pulses 2+. Extr: warm, no edema ASA: 2: Patient with mild systemic disease Mallampati: III: only the base of the uvula can be seen Last 3 wbc, hgb, hct plt Recent Labs 09/12/22 1040 04/13/22 2134 WBC 8.4 6.7 HGB 14.1 14.5 HCT 42.6 44.9 PLATELET 287 286 Last 3 Lytes Recent Labs 04/13/22 2134 NA 139 K 3.9 CL 100 CO2 27 BUN 17 CREATININE 0.62* Tests: EKG: NSR Stress Tests: 08/02/2022: Possible mild anterior ischemia vs. Breast artifact Previous Catheterization: None The nature of the procedures and attendant risks as outlined on the consent form were discussed in detail with the patient. The patient was given an opportunity to ask questions and these were answered; The patient agrees to proceed. Code status: FULL. Plan: Coronary Angio via radial vs. Femoral. No C/I to long-term DAPT Moderate Sedation OK Miguel Buchanan MD 09/12/2022 documented in this encounter Miscellaneous Notes * Brief Op Note - Preet Yanez MD - 09/12/2022 1:25 PM EDT Brief Operative Note Patient Name: Emilee Wilhelm : [id number] MR#: [id number] Case Date: 09/12/2022 Surgeon: Surgeon(s) and Role: * Preet Yanez MD - Primary * Miguel Buchanan MD - Fellow - Assisting Preoperative diagnosis: Chest pain, unspecified type [R07.9] Postoperative diagnosis: No CAD Procedure(s) (LRB): CARDIAC CATHETERIZATION (N/A) CORONARY ANGIOGRAPHY; W LHC,POSSIBLE PCI (WRVU 5.6) (N/A) Anesthesia: Moderate Findings: Right dominant system No angiographically significant disease in the left or right coronary arteries. Complications: None immediate via the right radial approach. documented in this encounter Plan of Treatment Not on file documented as of this encounter Procedures Procedure Name Priority Date/Time Associated Diagnosis Comments CARDIAC CATHETERIZATION Routine 09/13/19 12:55 PM EDT Chest pain, unspecified type Cath Plmt Left Heart Cath & Arts W/Inj & Angio Img S&I ([id number]) 09/12/2022 12:04 PM EDT Chest pain, unspecified type EKG 12-LEAD Routine 09/12/2022 11:31 AM EDT Chest pain, unspecified type BMP W/FASTING GLUCOSE STAT 09/12/2022 10:40 AM EDT HEMOGRAM STAT 09/12/2022 10:40 AM EDT DIFFERENTIAL, AUTOMATED STAT 09/13/19 10:40 AM EDT CBC (WITH DIFF) STAT 09/12/2022 10:40 AM EDT documented in this encounter Results * CARDIAC CATHETERIZATION (09/12/2022 12:55 PM EDT) Anatomical Region Laterality Modality Other Narrative 09/12/2022 5:00 PM EDT ?[facility] ? Cardiac Catheterization/Intervention Report ? Patient Name: Emilee Wilhelm ? Procedure Date: 09/12/2022 ? A #: [id number] ? Primary Physician: Beau, Preet De La Garza ? Case #: [id number] ? File Name: [id number] ? Catheterization Order Number: [id number] ? [facility] ? Final Report [place], [place] ? Patient Name: ? Emilee Armani Decelles ? ID#: ?[id number] ? : ?1970 ? Procedure Date: ? September 12, 2022 ?Case #: ? [id number] ? Room: ? 1 ? Case Physician: ? Preet Yanez M.D. ?Start: ?12:27 ?Fellow: ? Miguel Buchanan M.D. ?Admission: ??09/12/2022 ? Referring Physician: ??Larry Feldman M.D. ? Procedures: ?* Coronary Angiography ?* Left Heart Catheterization ? History ?Emilee Wilhelm is a 52 year old woman. She has a family history of ?coronary artery disease. The patient's smoking status is Never. She also ?has hypercholesterolemia managed with lipid therapy. Prior to the ?initiation of this procedure, the patient was designated as ASA Class I. ?The [facility] clinical frailty scale is 3: Managing Well. ? Diagnostic Tests: ?Electrocardiography: ? EKG was assessed by ECG. EKG was Normal. ?Stress or Imaging Studies: ? A stress test with SPECT imaging was performed on 08/02/2022 and was ? Positive with Low results. ?Medications Prior to Procedure: ? Statin. ? Indications for Diagnostic Cath: ?The priority of the diagnostic procedure was Elective. The indication for ?the quality control lab technician visit is suspected CAD. Chest pain symptom assessment was: ?Typical Angina. ? Technique: ?A 6 SLFr sheath was inserted in the right radial artery utilizing the ?Seldinger technique. The left coronary artery was injected utilizing a ?5Fr COLLEEN RADIAL catheter. A 5Fr COLLEEN RADIAL catheter was used to inject ?the right coronary artery. Left ventricular pressure was performed ?utilizing a 5Fr COLLEEN RADIAL catheter. 3,000 units of heparin were ?administered. A total of 50cc of Omnipaque were opened, 42cc of Omnipaque ?were administered and 8cc of Omnipaque were wasted. Radiation: Fluoro ?time was 4.9 minutes, dose area product was 9,340 mGYcm2 and air kerma ?was 108 mGY. See the case log for additional details. ?The patient received the following medications prior to and during the ?procedure: ? Unfractionated Heparin. ? Hemodynamics: ?Left Heart Pressures ? Resting: ? Syst Diast ? EDP ?a ?v ? m ?Ao 106 ?? 64 ?83 ?LV 108 ? 5 ? Coronary Angiography: ?Dominance: Right ?Left Main ? The left main was normal, free of disease. ?Left Anterior Descending ? The left anterior descending (LAD) was normal, free of disease. ?Left Circumflex ? The left circumflex (LCX) was normal, free of disease. ?Right Coronary Artery ? The right coronary artery (RCA) was normal, free of disease. ? Vascular Access: ?Vascular Access Management: ? Mechanical Compression of the right radial artery access site was ? performed. ? Conclusions: ?* Normal coronary arteries ? Complications/Events: ?The patient had no complications during these procedures. ? Post Procedure Fluid Recommendations: ?IV fluid at 328 mL/hr for 4 hours for a total of 1,312 mL. These ?recommendations are made at the time of the procedure. Patient and ?provider preferences or a changing clinical situation may require ?modification of this regimen. ?The attending physician was present for the entire procedure. ?Dr. Preet Yanez M.D. was present during the moderate sedation ?intraservice time as documented by the sedation nurse. ??Case time = 00:24. ?Dr. Preet Yanez M.D. performed the coronary angiography and left heart ?catheterization. ? Preet Yanez M.D. ? Electronically Signed by: Preet Yanez M.D. ? Report Finalized: 09/12/2022 ??12:57 ? Preet Yanez MD CARDIAC CATH ORDERAB LES * EKG 12 Lead (09/12/2022 11:31 AM EDT) Ventricular rate 77 BPM MUSE SYSTEM Atrial Rate 77 BPM MUSE SYSTEM P-R Interval 134 ms MUSE SYSTEM QRS Duration 88 ms MUSE SYSTEM Q-T Interval 400 ms MUSE SYSTEM QTC Calculated (Bezet) 452 ms MUSE SYSTEM Calculated P Timbo 58 degrees MUSE SYSTEM Calculated R Timbo 69 degrees MUSE SYSTEM Calculated T Timbo 42 degrees MUSE SYSTEM INTERPRETATION Normal sinus rhythm Normal ECG When compared with ECG of 13-APR-2022 20:43, No significant change was found Confirmed by fellow Shannan Cleaning ([id number]) on 09/13/2022 3:38:00 PM Confirmed by MD Pop, [place] ([id number]) on 09/15/2022 6:51:13 PM MUSE SYSTEM 09/12/2022 11:3 1 AM EDT 09/15/2022 6:51 PM EDT Preet Yanez MD ECG ORDERABLES MUSE SYSTEM * Differential, Automated (09/12/2022 10:40 AM EDT) Neutrophil % 57.1 % [facility] Neutrophil Absolute 4.80 1.70 - 6.10 x10(3)/[facility] Lymph % 31.9 % [facility] Lymphocytes Abs 2.7 0.9 - 3.2 x10(3)/[facility] Monocyte % 7.0 % [facility] Monocyte Abs 0.6 0.3 - 0.9 x10(3)/[facility] Eos % 3.1 % [facility] Eosinophils Abs 0.3 0.0 - 0.4 x10(3)/[facility] Basophil % 0.5 % [facility] Baso Absolute 0.0 0.0 - 0.1 x10(3)/[facility] Immature Gran % 0.40 % [facility] Comment: Immature granulocytes(IG's)percentage and absolute count will include metamyelocytes, myelocytes, and promyelocytes. Blood smears from CBCs yielding IG's will be scanned manually for concordance. If this scan disagrees with the automated IG or if promyelocytes are noted, a manual differential will be performed. Immature Gran Absolute 0.03 0.00 - 0.04 x10(3)/[facility] Blood 09/12/2022 10:4 0 AM EDT 09/12/2022 10:52 AM EDT Narrative Resulting Agency Comment Spec In Lab Karolina MONTEIRO HEMATOLOGY ORDERABLE S [facility] [place] [address] * Hemogram (09/12/2022 10:40 AM EDT) White Blood Cell 8.4 4.0 - 9.5 x10(3)/[facility] Red Blood Cell 4.78 4.00 - 5.21 x10(6)/[facility] Hemoglobin 14.1 11.7 - 15.5 g/dL [facility] Hematocrit 42.6 35.7 - 45.8 % [facility] Mean Cell Volume 89.1 82.6 - 94.4 fL [facility] Mean Cell Hemoglobin 29.5 27.1 - 32.0 pg [facility] Mean Cell Hemoglobin Concentration 33.1 31.7 - 35.0 g/dL [facility] Platelet 287 145 - 357 x10(3)/[facility] RDW Standard Deviation 42.6 37.0 - 46.0 fL [facility] RDW coefficient of variation 13.1 11.5 - 14.1 % [facility] Mean Platelet Volume 8.6 7.6 - 12.9 fL [facility] NRBC% auto 0.0 % [facility] NRBC Absolute 0.000 0.000 - 0.000 x10(3)/[facility] Blood 09/12/2022 10:4 0 AM EDT 09/12/2022 10:52 AM EDT Narrative Resulting Agency Comment Spec In Lab Karolina MONTEIRO HEMATOLOGY ORDERABLE S [facility] [place] [place] [address] * (ABNORMAL) BMP w/fasting Glucose (09/12/2022 10:40 AM EDT) Glucose Fasting 97 65 - 99 mg/dL [facility] Comment: ?Fasting* Glucose Interpretive Criteria Normal ?65-99 mg/dL Impaired Fasting glucose ?100-125 mg/dL Consistent with Diabetes Mellitus ? >or= 126 mg/dL *Fasting is defined as no caloric intake for at least 8 hours In the absence of unequivocal hyperglycemia a plasma glucose value of >or= 126 mg/dL should be repeated on a subsequent day. Diagnosis and Classification of Diabetes Mellitus, Position Statement from the [place] [employer]. ??Diabetes Care, Volume 33, Supplement 1, Feb 2009 Blood Urea Nitrogen 19(H) 8 - 18 mg/dL [facility] Creatinine 0.60(L) 0.70 - 1.20 mg/dL [facility] Sodium 139 135 - 145 mmol/L [facility] Potassium 4.8 3.5 - 5.0 mmol/L [facility] Comment: Please note: ??Patients with WBC >100,000 may have falsely elevated Potassium levels. ??For accurate Potassium quantification in these patients send serum separator tube (gold top) for subsequent determinations. ??Contact the Clinical Chemistry Laboratory if there are any questions. Chloride 103 98 - 107 mmol/L [facility] Carbon Dioxide 26 22 - 31 mmol/L [facility] Anion Gap 10 5 - 15 mmol/L [facility] Calcium 9.6 8.5 - 10.5 mg/dL [facility] Est Glomerular Filtration Rate 109 >=60 mL/min/1. 73 m?? [facility] Comment: This patient's estimated GFR was calculated using the 2020 CKD-EPI equation. The estimated GFR can vary from the measured GFR by up to 30% in the absence of rapidly changing kidney function. Assessment of the estimated GFR is not appropriate when creatinine concentrations are rapidly changing. For clinical situations in which a more precise estimate of GFR is necessary, consider alternative methods of GFR estimation such as a 24-hour urine creatinine clearance. Assignment of CKD stage 1-5 for patients with an eGFR near the transition point between stages may be based on clinical assessment of muscle mass and symptoms in addition to eGFR. Blood 09/12/2022 10:4 0 AM EDT 09/12/2022 10:52 AM EDT Narrative Resulting Agency Comment Spec In Lab Preet Yanez MD CHEMISTRY ORDERABLES [facility] [place] [address] documented in this encounter Visit Diagnoses Diagnosis Chest pain, unspecified type Chest pain, unspecified type documented in this encounter Administered Medications Inactive Administered Medications - up to 3 most recent administrations Medication Order MAR Action Action Date Dose Rate Site fentaNYL (pf) (50 mcg/mL) multi-dose injection PRN, Starting on Mon09/12/22 at 1223, Until Mon09/12/22 at 1501, Intra-Operative (Intra-Procedure), Routine Given 09/12/2022 12:23 PM EDT 25 mcg heparin (porcine) (1,000 units/mL) injection PRN, Starting on Mon09/12/22 at 1239, Until Mon09/12/22 at 1501, Intra-Operative (Intra-Procedure), Routine Given 09/12/2022 12:39 PM EDT 3,000 Units midazolam (pf) (Versed) (1 mg/mL) multi-dose injection PRN, Starting on Mon09/12/22 at 1219, Until Mon09/12/22 at 1501, Intra-Operative (Intra-Procedure), Routine Given 09/12/2022 12:19 PM EDT 1 mg nitroGLYcerin 100 mcg/mL intracoronary dilution PRN, Starting on Mon09/12/22 at 1228, Until Mon09/12/22 at 1501, Intra-Operative (Intra-Procedure), Routine Given 09/12/2022 12:28 PM EDT 150 mcg sodium chloride 0.9% infusion 200 mL/hr, Intravenous, CONTINUOUS, Starting on Mon09/12/22 at 1330, Until Mon09/12/22 at 1529, Recovery (Recovery-Hospital Unit) New Bag 09/12/2022 1:14 PM EDT 200 mL/hr 200 mL/hr verapamiL (Isoptin) (2.5 mg/mL) injection PRN, Starting on Mon09/12/22 at 1228, Until Mon09/12/22 at 1501, Administer over 2 Minutes, Intra-Operative (Intra-Procedure) Given 09/12/2022 12:28 PM EDT 2.5 mg documented in this encounter Active and Recently Administered Medications Times are shown in EDT. Continuous Medication Order 09/10/2022 09/11/2022 09/12/2022 sodium chloride 0.9% infusion 200 mL/hr, Intravenous, CONTINUOUS, Starting on Mon09/12/22 at 1330, Until Mon09/12/22 at 1529, Recovery (Recovery-Hospital Unit) 1314 (New Bag - Prov ider: Josette Parsons RN) PRN Medication Order 09/10/2022 09/11/2022 09/12/2022 fentaNYL (pf) (50 mcg/mL) multi-dose injection (CANCELED) PRN, Starting on Mon09/12/22 at 1223, Until Mon09/12/22 at 1501, Intra-Operative (Intra-Procedure), Routine 1223 (Given - Provid er: Juan Doran RN) heparin (porcine) (1,000 units/mL) injection (CANCELED) PRN, Starting on Mon09/12/22 at 1239, Until Mon09/12/22 at 1501, Intra-Operative (Intra-Procedure), Routine 1239 (Given - Provid er: Juan Doran RN) midazolam (pf) (Versed) (1 mg/mL) multi-dose injection (CANCELED) PRN, Starting on Mon09/12/22 at 1219, Until Mon09/12/22 at 1501, Intra-Operative (Intra-Procedure), Routine 1219 (Given - Provid er: Juan Doran RN) nitroGLYcerin 100 mcg/mL intracoronary dilution (CANCELED) PRN, Starting on Mon09/12/22 at 1228, Until Mon09/12/22 at 1501, Intra-Operative (Intra-Procedure), Routine 1228 (Given - Provid er: Miguel Buchanan MD) verapamiL (Isoptin) (2.5 mg/mL) injection (CANCELED) PRN, Starting on Mon09/12/22 at 1228, Until Mon09/12/22 at 1501, Administer over 2 Minutes, Intra-Operative (Intra-Procedure) 1228 (Given - Provid er: Miguel Buchanan MD) documented in this encounter Care Teams Sports Attorney Relationship Specialty Start Date End Date Dina Diaz PA [address] [place] [address] [place] [address] PCP - General Internal Medicine 05/26/20 documented as of this encounter
--- OUTSIDE RECORDS SUMMARY | 2023-10-04 01:05 | XMS_ITS | Encounter Summary ---
Author Organization [facility] Address [address] [place] [address] Care Team Providers Care Valet Parker Name Role Phone Tracey Butler NP Primary Care Provider Valdo e Encounter Details Date Type Department Care Team (Late st Contact Info) Description 12/10/2005 Results Only [facility] conversion [address] [place] [address] Unknown, Provider, Social History Tobacco Use Types [...] Procedure Name Priority Date/Time Associated Diagnosis Comments PROLACTIN Routine 12/10/2005 10:30 EDT LH Routine 12/10/2005 10:30 EDT FSH Routine 12/10/2005 10:30 EDT documented in this encounter Results * PROLACTIN (12/10/2005 10:30 EDT) Prolactin 4.0 ng/ml [facility] Comment: Non-: 2.8-29.2 : 9.7-208.5 Post Menopausal: 1.8-20.3 12/10/2005 10:3 0 EDT 12/11/2005 15:24 EDT Provider Unknown CHEMISTRY & BLOOD GA S ORDERABLES Performing Organization Address City/[facility] Co de Phone Number [facility] [address] [place] [address] * LH (12/10/2005 10:30 EDT) LH 2.5 mIU/ml [facility] Comment: Follicular: 1-18 Mid-Cycle Peak: 15-80 Luteal: 0.5-18 Postmenopausal: 12-55 12/10/2005 10:3 0 EDT 12/11/2005 15:24 EDT Provider Unknown CHEMISTRY & BLOOD GA S ORDERABLES Performing Organization Address [facility] de Phone Number [facility] [address] [place] [address] * FSH (12/10/2005 10:30 EDT) FSH 4.8 mIU/ml [facility] Comment: Follicular: 2-11 Mid-Cycle Peak: 3.4-35 Luteal: 1-9 Postmenopausal: 25-120 12/10/2005 10:3 0 EDT 12/11/2005 15:24 EDT Provider Unknown CHEMISTRY & BLOOD GA S ORDERABLES Performing Organization Address [facility] de Phone Number [facility] [address] [place] [address] documented in this encounter Visit Diagnoses Not on filedocumented in this encounter Care Teams Valet Parker Relationship Specialty Start Date End Date Tracey Butler NP PCP - General 08/08/08 08/12/13 documented as of this encounter
--- OUTSIDE RECORDS SUMMARY | 2023-10-04 01:05 | XMS_ITS | Encounter Summary ---
Author Organization [facility] [place] [address] Care Team Providers Care Oral And Maxillofacial Surgeon Name Role Phone Dina Diaz Primary Care Provider + Reason for Visit * Auth/Cert (Routine) Specialty Diagnoses / Procedures Referred By Contac t Referred To Contact Diagnoses HNP (herniated nucleus pulposus), lumbar RECURRENT LEFT L4/5 HNP Procedures PRO REDO EXCIS LUMBAR DISC LAMINOTOMY W\DECOMPRESSION, ONE LVL, LUMBAR ,RE-EXPL (INCLDNG PART. FACETECTOMY, FORAMINOTOMY &\OR DISCECTOMY) (WRVU 18.76) Hardy Gregorio MD [address] [place] [address] [facility] Referral ID Status Reason Start Date Expiration Date Visits Re quested Visits Authorized [id number] 1 1 Encounter Details Date Type Department Care Team (Late st Contact Info) Description 07/25/2023 6:40 AM EDT Ancillary Procedure Radiology Xray at [facility] [address] [place] [address] Social History Tobacco Use Types Packs/Day Years [...] PM EDT documented as of this encounter Plan of Treatment Not on file documented as of this encounter Procedures Procedure Name Priority Date/Time Associated Diagnosis Comments XR FLUORO NO RAD <1HR - OR USE Routine 07/25/2023 8:40 AM EDT documented in this encounter Results * XR Fluoro No Rad <1Hr - OR Use (07/25/2023 8:40 AM EDT) Narrative Dicom, Auditing User - 07/25/2023 8:40 AM EDT This exam is auto-finalizing. No interpretation was done. Hardy Gregorio MD IMG FLUORO ORDERABLE S documented in this encounter Visit Diagnoses Not on filedocumented in this encounter Care Teams Oral And Maxillofacial Surgeon Relationship Specialty Start Date End Date Dina Diaz PA [address] [place] [address] [place] [address] PCP - General Internal Medicine 05/26/20 documented as of this encounter
--- OUTSIDE RECORDS SUMMARY | 2023-10-04 01:05 | XMS_ITS | Encounter Summary ---
Author Organization [facility] [place] [address] Care Team Providers Care Correctional Maintenance Technician Name Role Phone Dina Diaz Primary Care Provider + Reason for Visit * Auth/Cert (Routine) Specialty Diagnoses / Procedures Referred By John t Referred To Contact Diagnoses Chest pain, unspecified Chest pain, unspecified type [R07.9] Procedures PRG CATH PLMT LEFT HEART CATH & ARTS W/INJ & ANGIO IMG S&I CARDIAC CATHETERIZATION CORONARY ANGIOGRAPHY; W LHC,POSSIBLE PCI (WRVU 5.6) Preet Yanez MD [facility] [place] [address] [facility] Referral ID Status Reason Start Date Expiration Date Visits Re quested Visits Authorized [id number] 1 1 Encounter Details Date Type Department Care Team (Latest Contact Info) Description 09/12/2022 10:19 AM EDT - 09/12/2022 3:04 PM EDT Hospital [place] [address] Preet Yanez MD [facility] [place] [address] Chest pain, unspecified type Discharge Disposition: Home Social History Tobacco Use Types Packs/Day Years [...] Sign Reading Time Taken Comments Blood Pressure 94/58 09/12/2022 2:55 PM EDT Pulse 86 09/12/2022 3:00 PM EDT Temperature 36.7 ??C (98.1 ??F) 09/12/2022 1 1:25 AM EDT Respiratory Rate 18 09/12/2022 3:00 PM EDT Oxygen Saturation 98% 09/12/2022 3:00 PM EDT Inhaled Oxygen Concentration - - Weight 65.7 [...] by your doctor, do not take any tqti-pmr-ohloifo medicinesor herbal preparations without first discussing this with your doctor or pharmacist. There is the possibility of side effects and interactions when these are combined. Follow Up Care Who to call with questions or problems If there are any questions or problems that you think might be related to your cardiac cath or angioplasty, contact the vp strategic partnerships classification counselor by calling [facility] at . documented in this encounter Medications at Time of Discharge Medication Sig Dispensed Refills Start Date End Date rimegepant (Nurtec ODT) 75 mg disintegrating tablet Take 75 mg by mouth every other day. Qulipta 60 mg Tablet Take 1 tablet by mouth daily. 04/08/2022 azelastine (ASTELIN) 137 mcg (0.1 %) Aerosol, Commerce Every 12 hours. 03/17/2020 baclofen (Lioresal) 10 [...] spasm, # 30 tab, 0 Refill(s), Pharmacy: [id number], 165, cm, 08/14/21 [...] Emilee Wilhelm PCP: THANIA Azar PCP Referring Order Dispatcher: Ilan Feldman MD Reason for Referral: Angina [...] Operative Note Patient Name: Emilee Wilhelm : [id number] MR#: [id number] Case Date: 09/12/2022 Surgeon: Surgeon(s) and Role: [...] & Arts W/Inj & Angio Img S&I ([id number]) 09/12/2022 12:04 PM EDT Chest pain, unspecified [...] Modality Other Narrative 09/12/2022 5:00 PM EDT ?[facility] ? Cardiac Catheterization/Intervention Report ? Patient Name: Melonie Emilee Armani ? Procedure Date: 09/12/2022 ? A #: [id number] ? Primary Physician: Beau, Preet De La Garza ? Case #: [id number] ? File Name: [id number] ? Catheterization Order Number: [id number] ? [facility] ? Final Report [place], [place] ? Patient Name: ? Emilee Armani Decelles ? ID#: ?[id number] ? : ?1970 ? Procedure Date: ? September 12, 2022 ?Case #: ? [id number] ? Room: ? 1 ? Case Physician: ? Preet Yanez M.D. ?Start: ?12:27 ?Fellow: ? Mgiuel Buchanan M.D. ?Admission: ??09/12/2022 ? Referring Physician: [...] was designated as ASA Class I. ?The [facility] clinical frailty scale is 3: Managing [...] procedure was Elective. 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 Chest pain symptom [...] (Bezet) 452 ms MUSE SYSTEM Calculated P Burna 58 degrees MUSE SYSTEM Calculated R Burna 69 degrees MUSE SYSTEM Calculated T Burna 42 degrees MUSE SYSTEM INTERPRETATION Normal sinus rhythm Normal ECG When compared with ECG of 13-APR-2022 20:43, No significant change was found Confirmed by fellow Shannan Cleaning ([id number]) on 09/13/2022 3:38:00 PM Confirmed by MD Pop, [place] ([id number]) on 09/15/2022 6:51:13 PM MUSE SYSTEM 09/12/2022 11:3 1 AM EDT 09/15/2022 6:51 PM EDT Preet Yanez MD ECG ORDERABLES MUSE SYSTEM * Differential, Automated (09/12/2022 10:40 AM EDT) Neutrophil % 57.1 % [facility] Neutrophil Absolute 4.80 1.70 - 6.10 x10(3)/[facility] Lymph % 31.9 % [facility] Lymphocytes Abs 2.7 0.9 - 3.2 x10(3)/[facility] Monocyte % 7.0 % [facility] Monocyte Abs 0.6 0.3 - 0.9 x10(3)/[facility] Eos % 3.1 % [facility] Eosinophils Abs 0.3 0.0 - 0.4 x10(3)/[facility] Basophil % 0.5 % [facility] Baso Absolute 0.0 0.0 - 0.1 x10(3)/[facility] Immature Gran % 0.40 % [facility] Comment: Immature granulocytes(IG's)percentage and absolute count will include metamyelocytes, myelocytes, and promyelocytes. Blood smears from CBCs yielding IG's will be scanned manually for concordance. If this scan disagrees with the automated IG or if promyelocytes are noted, a manual differential will be performed. Immature Gran Absolute 0.03 0.00 - 0.04 x10(3)/[facility] Blood 09/12/2022 10:4 0 AM EDT 09/12/2022 10:52 AM EDT Narrative Resulting Agency Comment Spec In Lab Karolina MONTEIRO HEMATOLOGY ORDERABLE S Performing Organization Address [facility] Co de Phone Number [facility] [place] [address] * Hemogram (09/12/2022 10:40 AM EDT) White Blood Cell 8.4 4.0 - 9.5 x10(3)/[facility] Red Blood Cell 4.78 4.00 - 5.21 x10(6)/[facility] Hemoglobin 14.1 11.7 - 15.5 g/dL [facility] Hematocrit 42.6 35.7 - 45.8 % [facility] Mean Cell Volume 89.1 82.6 - 94.4 fL [facility] Mean Cell Hemoglobin 29.5 27.1 - 32.0 pg [facility] Mean Cell Hemoglobin Concentration 33.1 31.7 - 35.0 g/dL [facility] Platelet 287 145 - 357 x10(3)/[facility] RDW Standard Deviation 42.6 37.0 - 46.0 fL [facility] RDW coefficient of variation 13.1 11.5 - 14.1 % [facility] Mean Platelet Volume 8.6 7.6 - 12.9 fL [facility] NRBC% auto 0.0 % [facility] NRBC Absolute 0.000 0.000 - 0.000 x10(3)/[facility] Blood 09/12/2022 10:4 0 AM EDT 09/12/2022 10:52 AM EDT Narrative Resulting Agency Comment Spec In Lab Karolina MONTEIRO HEMATOLOGY ORDERABLE S Performing Organization Address [facility]/ZIP Co de Phone Number [facility] [place] [address] * (ABNORMAL) BMP w/fasting Glucose (09/12/2022 10:40 AM EDT) Glucose Fasting 97 65 - 99 mg/dL [facility] Comment: ?Fasting* Glucose Interpretive Criteria Normal [...] of Diabetes Mellitus, Position Statement from the [place] [employer]. ??Diabetes Care, Volume 33, Supplement 1, Feb 2009 Blood Urea Nitrogen 19(H) 8 - 18 mg/dL [facility] Creatinine 0.60(L) 0.70 - 1.20 mg/dL [facility] Sodium 139 135 - 145 mmol/L [facility] Potassium 4.8 3.5 - 5.0 mmol/L [facility] Comment: Please note: ??Patients with WBC >100,000 may have falsely elevated Potassium levels. ??For accurate Potassium quantification in these patients send serum separator tube (gold top) for subsequent determinations. ??Contact the Clinical Chemistry Laboratory if there are any questions. Chloride 103 98 - 107 mmol/L [facility] Carbon Dioxide 26 22 - 31 mmol/L [facility] Anion Gap 10 5 - 15 mmol/L [facility] Calcium 9.6 8.5 - 10.5 mg/dL [facility] Est Glomerular Filtration Rate 109 >=60 mL/min/1. 73 m?? [facility] Comment: This patient's estimated GFR was [...] In Lab Preet Yanez MD CHEMISTRY ORDERABLES [facility] [place] [address] documented in this encounter Visit Diagnoses Diagnosis Chest pain, unspecified type Chest pain, unspecified type documented in this encounter Administered Medications Inactive Administered Medications - up to 3 most recent administrations Medication Order MAR Action Action Date Dose Rate Site sodium chloride 0.9% infusion 200 mL/hr, Intravenous, CONTINUOUS, Starting on Mon09/12/22 at 1330, Until Mon09/12/22 at 1529, Recovery (Recovery-Hospital Unit) New Bag 09/12/2022 1:14 PM EDT 200 mL/hr 200 mL /hr documented in this encounter Active and Recently [...] MD) documented in this encounter Care Teams Correctional Maintenance Technician Relationship Specialty Start Date End Date Dina Diaz PA [address] [place] [address] PCP - General Internal Medicine 05/26/20 documented as of this encounter
--- OUTSIDE RECORDS SUMMARY | 2023-10-04 01:05 | XMS_ITS | Encounter Summary ---
[place] [address] Care Team Providers Care Jewelry Internship Name Role Phone Dina Diaz Primary Care Provider + Encounter Details Date Type Department Care Team (Late st Contact Info) Description 12/22/2022 9:00 PM EDT Ancillary Procedure Radiology at [facility] [address] [place] [address] Hardy Gregorio MD [address] [place] [address] Social History Tobacco Use Types Packs/Day Years [...] Procedure Name Priority Date/Time Associated Diagnosis Comments FILM LIBRARY STORAGE ONLY MR SPINE Routine 12/22/2022 8:58 PM EDT documented in this encounter Results * Film Library- Storage Only MR Spine (12/22/2022 8:58 PM EDT) Narrative RAD - 12/22/2022 8:58 PM EDT This exam is auto-finalizing. It's purpose is for storage only. Hardy Gregorio MD G FILM LIBRARY ORD ERABLES [place], [place] documented in this encounter Visit Diagnoses Not on filedocumented in this encounter Care Teams Jewelry Internship Relationship Specialty Start Date End Date Dina Diaz PA [address] [place] [address] [place] [address] PCP - General Internal Medicine 05/26/20 documented as of this encounter
--- OUTSIDE RECORDS SUMMARY | 2023-10-04 01:05 | XMS_ITS | Encounter Summary ---
Author [facility] [place] [address] Care Team Providers Care Quality Compliance Coordinator Name Role Phone Dina Diaz Primary Care Provider + Encounter Details Date Type Department Care Team (Latest Contact Info) Description 05/03/2022 Travel Social History Tobacco Use Types Packs/Day Years [...] on filedocumented in this encounter Care Teams Quality Compliance Coordinator Relationship Specialty Start Date End Date Dina Diaz PA [address] [place] [address] PCP - General Internal Medicine 05/26/20 documented as of this encounter
--- OUTSIDE RECORDS SUMMARY | 2023-10-04 01:05 | XMS_ITS | Encounter Summary ---
[place] [address] Care Team Providers Care Acetylene Gas Compressor Name Role Phone Dina Diaz Primary Care Provider + Reason for Referral * Consultation (Routine) - Closed Specialty Diagnoses / Procedures Referred By John almaraz Referred To Contact [facility] Diagnoses Chronic pain syndrome Postlaminectomy syndrome, not elsewhere classified 04/26 called RMD to clarify Sasha Canchola APRN [address] [facility] [address] [place] [address] [facility] [place] [address] Referral ID Status Reason Start Date Expiration Date V isits Requested Visits Authorized [id number] Closed Consult, Test & Treat PCP Updated and/or Approved 04/20/2023 04/20/2024 1 1 Encounter Details Date Type Department Care Team (Late st Contact Info) Description 04/26/2023 Transcribe Orders eDH Incoming Referrals [phone] Sasha Canchola APRN [address] [place], [place] [id number] Chronic pain syndrome Social History Tobacco Use Types Packs/Day Years [...] of this encounter Plan of Treatment Scheduled Referrals Name Type Priority Associated Diagnoses Orde r Schedule Referral to Spine Center Outpatient Referral Routine Chronic pain syndrome Ordered: 04/26/2023 documented as of this encounter Visit Diagnoses Diagnosis Chronic pain syndrome documented in this encounter Care Teams Acetylene Gas Compressor Relationship Specialty Start Date End Date Dina Diaz PA [address] [place] [address] [place] [address] PCP - General Internal Medicine 05/26/20 documented as of this encounter
--- OUTSIDE RECORDS SUMMARY | 2023-10-04 01:05 | XMS_ITS | Encounter Summary ---
Author Organization [facility] [place] [address] Care Team Providers Care Biology Specimen Technician Name Role Phone Dina Diaz Primary Care Provider + Reason for Visit * Auth/Cert (Routine) Specialty Diagnoses / Procedures Referred By Contac t Referred To Contact Diagnoses HNP (herniated nucleus pulposus), lumbar RECURRENT LEFT L4/5 HNP Procedures PRO REDO EXCIS LUMBAR DISC LAMINOTOMY W\DECOMPRESSION, ONE LVL, LUMBAR ,RE-EXPL (INCLDNG PART. FACETECTOMY, FORAMINOTOMY &\OR DISCECTOMY) (WRVU 18.76) Hardy Gregorio MD [address] [place] [address] [facility] Referral ID Status Reason Start Date Expiration Date Visits Re quested Visits Authorized [id number] 1 1 Encounter Details Date Type Department Care Team (Late st Contact Info) Description 07/25/2023 7:29 AM EDT Anesthesia Event Operating Room [place] [id number] Nathan Becerril CRNA [facility] [place] [address] Anesthesia Record Procedure Summary Procedure Name Responsible Anesthesiologist Anesthesia Start Time Anesthesia Stop Time LAMINOTOMY W\DECOMPRESSION, ONE LVL, LUMBAR ,RE-EXPL (INCLDNG PART. FACETECTOMY, FORAMINOTOMY &\OR DISCECTOMY) (WRVU 18.76) (Left: Spine Lumbar) Nathan Becerril CRNA 07/25/23 0729 07/25/23 0854 Events Date Time Event Comment 07/25/2023 0658 0729 AN Verify 0729 Start 0729 An Start Data 0733 An Induction 0737 An Intubation 0737 Anesthesia Ready 0848 Extubation/LMA Out 0850 an stop data 0854 Stop Meds Name Total ceFAZolin (Ancef) 2 g vial a ttach to sodium chloride 0.9% 100 mL Mini-Bag Plus 2 g Midazolam 5 mg fentaNYL 200 mcg IV Lidocaine 100 mg Propofol 150 mg Rocuronium 40 mg Ondansetron 4 mg Dexamethasone 8 mg Sugammadex 130 mg lactated ringers infusion 0 mL * Agents Name O2 * Blood No blood administrations on file. Lines, Drains, and Airways Type Details Placement Removal Incision 04/14/22; 0752; lumb ar spine; vertical; Dermabond, Benzoin, Paper tape 04/14/22 0752 by Carolann Wilkinson RN Incision 07/25/23; lower; tho racic spine (lumbar back); vertical; drsg: dermabond, benzoin, and paper tape 07/25/23 0000 by Veena Block RN PIV 07/25/23; 0645; [id number] catheter system; 20 gauge; median cubital vein (antecubital fossa), right; no longer indicated, catheter/device intact; 07/25/23; 0954 07/25/23 0645 by Princess Walls RN 07/25/23 0954 by Anila Cerda RN ETT Mask Ventilation: Ea sy (1); ETT Type: Cuffed, Oral; ETT Size: 7 mm; Mac Blade: 3; Indirect: Video; Attempts: 2; Laryngoscopy Grade: 1; ETT Placement Verified By: Auscultation, Capnometry, Visual; Secured at Teeth: 20 cm; Removal Date: 07/25/23; Removal Time: 0848 07/25/23 0737 by Nathan Becerril CRNA 07/25/23 0848 by Nathan Becerril CRNA documented in this encounter Social History Tobacco Use Types Packs/Day Years [...] PM EDT documented as of this encounter OR Notes * Anesthesia Postprocedure Evaluation - Nathan Becerril CRNA - 07/25/2023 8:54 AM EDT Department of Anesthesiology Post-procedure Note Patient: Emilee Wilhelm Procedure Summary Date: 07/25/23 Room / Location: [facility] MAIN OR Anesthesia Start: 728 Anesthesia Stop: 853 Procedure: LAMINOTOMY W\DECOMPRESSION, ONE LVL, LUMBAR ,RE-EXPL (INCLDNG PART. FACETECTOMY, FORAMINOTOMY &\OR DISCECTOMY) ([facility]) (Left: Spine Lumbar) Diagnosis: (RECURRENT LEFT L4/5 HNP) Surgeons: Hardy Gregorio MD Responsible Provider: Nathan Becerril CRNA Anesthesia Type: general ASA Status: 2 All Anesthesia Providers: KWAKU Independent: Nathan Becerril CRNA Vitals Value Taken Time BP Temp Pulse Resp SpO2 Pain Level Patient Location: PACU Level of Consciousness: Conscious but Sleepy Pain Management: Satisfactory Analgesia PONV: None Cardiovascular Status: At Baseline Respiratory Status: At Baseline Postoperative Fluid Status: Intravascular EUvolemia Possible Anesthetic Complications: NONE apparent at time of evaluation Final Primary Anesthesia Type: General (The anesthetic type performed was the same as planned.) Comments: Please see PACU flowsheet for VS. Report and care to RN * Anesthesia Preprocedure Evaluation - Nathan Becerril, PROFILER - 07/25/2023 6:57 AM EDT Images from the original note were not included. Pre-Anesthesia Evaluation for: Emilee Wilhelm a 53 y.o. female. Procedure(s): LAMINOTOMY W\DECOMPRESSION, ONE LVL, LUMBAR ,RE-EXPL (INCLDNG PART. FACETECTOMY, FORAMINOTOMY &\OR DISCECTOMY) ([facility] 18[facility]) Patient Active Problem List Diagnosis Date Noted ??? Lumbar herniated disc 04/13/2022 ??? HNP (herniated nucleus pulposus), lumbar 04/13/2022 ??? Intractable chronic migraine without aura and without status migrainosus 06/29/2021 ??? Migraine with aura and without status migrainosus, not intractable 06/29/2021 ??? Medication overuse headache 06/29/2021 ??? Depression with anxiety 07/16/2015 ??? Deficiency of vitamin B12 05/07/2015 ??? Hypothyroidism 03/20/2015 ??? Sleep apnea 03/20/2015 ??? Stress incontinence, female 01/08/2015 ??? Vitamin D deficiency 07/22/2014 ??? Polyp of colon, adenomatous 04/15/2014 ??? DDD (degenerative disc disease), lumbar 03/28/2014 ??? Low back pain 03/28/2014 ??? LSIL (low grade squamous intraepithelial lesion) on Pap smear 01/26/2014 ??? PTSD (post-traumatic stress disorder) 12/13/2013 ??? Bipolar disorder 12/13/2013 ??? Fibromyalgia 12/13/2013 ??? Allergic rhinitis 08/02/2010 Past Medical History: Diagnosis Date ??? Allergic state ??? Anxiety ??? Bipolar disorder ??? Chronic kidney disease ??? Chronic pain ??? Degenerative disc disease ??? Depression ??? Environmental allergies with anaphylaxis ??? Fibrocystic breast disease ??? Fibromyalgia ??? Hyperlipidemia ??? Hypothyroid ??? Lower back injury 02/05/2013 ??? Lyme disease ??? Obstructive sleep apnea ??? PTSD (post-traumatic stress disorder) ??? Thyroid disorder ??? Vision abnormalities Past Surgical History: Procedure Laterality Date ??? BLADDER SUSPENSION 2015, 02/2022 ??? BREAST CYST EXCISION Bilateral ??? CHOLECYSTECTOMY ??? COLPOSCOPY 07/30/2013 ??? ENDOMETRIAL ABLATION ??? HYSTERECTOMY 05/01/2020 Laparoscopic hysterctomy, bilateral salpingectomy, uterosacral ligament suspension, Dr.Mahmood Wilkersno and Dr. Waller ??? INCONTINENCE SURGERY 05/01/2020 Retropubic mid-urethral polypropylene sling with hysterectomy ??? MASTECTOMY, PARTIAL ? ? PRG CATH PLHI LEFT HEART CATH & ARTS W/INJ & ANGIO IMG S&I N/A 09/12/2022 CORONARY ANGIOGRAPHY; W LHC,POSSIBLE PCI (WRVU 5.6) performed by Preet Yanez MD at [facility] CATH LABS ??? PRO INJECT TRIGGER POINT, 1 OR 2 N/A 03/15/2022 INJECTION,SINGLE OR MULTIPLE TRIGGER POINTS (WRVU 0.66) performed by Abundio Griffith MD at [facility] MAIN OR ??? PRO LAMINEC/FACETECT/FORAMIN, LUMBAR 1 SEG Bilateral 04/14/2022 LAMINECTOMY,FACETECTOMY & FORAMINOTOMY,LUMBAR,ONE LEVEL,CARLOS performed by Hardy Gregorio MD [facility] MAIN OR ??? PRO REMV/REVS SLING FOR STRES INCONTINENCE Midline 03/15/2022 SLING, REVISEOR REMOVE, REPLACE, VAGINALAPPROACH, SYNTHETIC\FASCIA (WRVU 11.15) performed by Abundio Griffith MD at [facility] MAIN OR ??? PRO SLING OPER STRES INCONTINENCE N/A 10/13/2015 URETHRAL SUSPENSION, SLING\FASCIA OR SYNTHETIC performed by Abundio Griffith MD at [facility] MAIN OR ??? ROTATOR CUFF REPAIR Left 2009 ??? SEPTOPLASTY 11/2006 tonsils and upper palate reshaping ??? THYROIDECTOMY, PARTIAL 01/2014 ??? TONSILLECTOMY 11/2006 ??? TUBAL LIGATION ??? UVULOPALATOPHARYGOPLASTY 11/2006 Social History Tobacco Use ??? Smoking status: Never ??? Smokeless tobacco: Never Substance Use Topics ??? Alcohol use: Not Currently Comment: occasionally Social History Substance and Sexual Activity Drug Use Not Currently ??? Types: Marijuana Comment: vape 2 times a month Allergies Allergen Reactions ??? Latex Other reaction(s): Unknown ??? Abilify [Aripiprazole] Other (See Comments) hallucinations ??? Shellfish Derived Anaphylaxis ??? Diltiazem Other (See Comments) Chest pain ??? Morphine Sulfate Nausea And Vomiting ??? Amitriptyline Hcl ??? Armodafinil Other (See Comments) Excessive runny nose and hard to swallow. ??? Hydrocodone ??? Imipramine ??? Metoprolol Other (See Comments) Other reaction(s): Depression depression ??? Oxycodone Hcl ??? Soy ??? Tree Nuts ??? Wheat Medications: MAR and/or home medications have been reviewed. Physical Exam: Preprocedure Vitals Current as of 07/25/23 0657 BP: 107/70 Pulse: 84 Resp: 16 SpO2: 99 Temp: 36.1 ??C (97 ??F) Height: 165.1 cm (5' 5) (07/25/23) Weight: 67.2 kg (148 lb 3.2 oz) (07/25/23) BMI: 24.66 IBW: 57 kg (125 lb 10.6 oz) Last edited 07/25/23 0632 by BHAVIK Airway Assessment: Mallampati: II TM distance: >3 FB Neck ROM: full Cardiovascular Assessment: Rhythm: regular Rate: normal Pulmonary Assessment: unlabored breathing Dental Assessment: Misc Assessment: Patient is wearing No contact(s). IV access: Peripheral line Last Filed Perioperative Cognitive Screening None Anesthesia Plan: ASA 2 general, with a(n) intravenous induction Informed Consent: Anesthetic plan and risks discussed with patient. Use of blood products discussed with patient who consented to blood products. Anesthesia Screening documented in this encounter Plan of Treatment Not on file documented as of this encounter Visit Diagnoses Not on filedocumented in this encounter Administered Medications Inactive Administered Medications - up to 3 most recent administrations Medication Order MAR Action Action Date Dose Rate Site ceFAZolin (Ancef) 2 g vial attach to sodium chloride 0.9% 100 mL Mini-Bag Plus 2 g, Intravenous, ONCE, 1 dose, On Mon07/25/23 at 0645, Administer over 30 Minutes, To be administered upon arrival to the OR within one hour prior to incision., Day of Surgery (Day of Procedure), Indication for (Active or Suspected): Prophylaxis New Bag 07/25/2023 7:41 AM EDT 2 g dexAMETHasone (Decadron) injection Intravenous, PRN, Starting on Mon07/25/23 at 0743, Until Mon07/25/23 at 0854, Anesthesia Intra-op, Routine Given 07/25/2023 7:43 AM EDT 8 mg fentaNYL (pf) (50 mcg/mL) multi-dose injection Intravenous, PRN, Starting on Mon07/25/23 at 0733, Until Mon07/25/23 at 0854, Anesthesia Intra-op, Routine Given 07/25/2023 8:26 AM EDT 100 mcg Given 07/25/2023 7:33 AM EDT 100 mcg lactated ringers infusion 1,000 mL, at 50 mL/hr, Intravenous, CONTINUOUS, Starting on Mon07/25/23 at 0700, Until Mon07/25/23 at 1230, Day of Surgery (Day of Procedure) New Bag 07/25/2023 7:29 AM EDT lidocaine (pf) (Xylocaine) (20 mg/mL) 2% injection syringe Intravenous, PRN, Starting on Mon07/25/23 at 0733, Until Mon07/25/23 at 0854, Anesthesia Intra-op, Routine Given 07/25/2023 7:33 AM EDT 100 mg midazolam (pf) (Versed) (1 mg/mL) multi-dose injection Intravenous, PRN, Starting on Mon07/25/23 at 0729, Until Mon07/25/23 at 0854, Anesthesia Intra-op, Routine Given 07/25/2023 7:33 AM EDT 3 mg Given 07/25/2023 7:29 AM EDT 2 mg ondansetron (pf) (Zofran) (2 mg/mL) injection Intravenous, PRN, Starting on Mon07/25/23 at 0743, Until Mon07/25/23 at 0854, Anesthesia Intra-op, Routine Given 07/25/2023 7:43 AM EDT 4 mg propofoL (Diprivan) 10 mg/mL bolus injection (Anesthesia) Intravenous, PRN, Starting on Mon07/25/23 at 0733, Until Mon07/25/23 at 0854, Anesthesia Intra-op Given 07/25/2023 7:33 AM EDT 150 mg rocuronium (Zemuron) 10 mg/mL injection Intravenous, PRN, Starting on Mon07/25/23 at 0733, Until Mon07/25/23 at 0854, Anesthesia Intra-op, Routine Given 07/25/2023 7:33 AM EDT 40 mg sugammadex (Bridion) 100 mg/mL injection Intravenous, PRN, Starting on Mon07/25/23 at 0837, Until Mon07/25/23 at 0854, Anesthesia Intra-op, Routine Given 07/25/2023 8:37 AM EDT 130 mg documented in this encounter Care Teams Biology Specimen Technician Relationship Specialty Start Date End Date Dina Diaz PA [address] [place] [address] [place] [address] PCP - General Internal Medicine 05/26/20 documented as of this encounter
--- OUTSIDE RECORDS SUMMARY | 2023-10-04 01:05 | XMS_ITS | Encounter Summary ---
[place] [address] Care Team Providers Care Equestrian Trainer Name Role Phone Dina Diaz Primary Care Provider + Encounter Details Date Type Department Care Team (Late st Contact Info) Description 06/20/2023 10:10 AM EDT Ancillary Procedure Radiology at [facility] [address] [place] [address] Hardy Greogrio MD [address] [place] [address] Social History Tobacco Use Types Packs/Day Years [...] FILM LIBRARY STORAGE ONLY MR SPINE Routine 06/20/2023 10:06 AM EDT documented in this encounter Results * Film Library- Storage Only MR Spine (06/20/2023 10:06 AM EDT) Narrative RAD - 06/20/2023 10:06 AM EDT This exam is auto-finalizing. It's purpose is for storage only. Hardy Gregorio MD G FILM LIBRARY ORD ERABLES [place], [place] documented in this encounter Visit Diagnoses Not on filedocumented in this encounter Care Teams Equestrian Trainer Relationship Specialty Start Date End Date Dina Diaz PA [address] [place] [address] [place] [address] PCP - General Internal Medicine 05/26/20 documented as of this encounter
--- OUTSIDE RECORDS SUMMARY | 2023-10-04 01:05 | XMS_ITS | Encounter Summary ---
Author Organization [facility] Address [address] [place] [address] Care Team Providers Care Front Desk Team Member Name Role Phone Tracey Butler NP Primary Care Provider Unavailelayne e Encounter Details Date Type Department Care Team (Late st Contact Info) Description 05/04/2005 Results Only [facility] conversion [address] [place] [address] Unknown, Provider, Social History Tobacco Use Types [...] Procedure Name Priority Date/Time Associated Diagnosis Comments N. GONORRHOEAE AMPLIFIED PROBE Routine 05/04/2005 13:35 EST ZZCHLAMYDIA TRACHOMATIS AMPLIFIED PROBE Routine 05/04/2005 13:35 EST documented in this encounter Results * CHLAMYDIA TRACHOMATIS AMPLIFIED PROBE (05/04/2005 13:35 EST) Specimen Description [facility] Result No Chlamydia trachomatis DNA detected by hand pattern marker mediated amplification. [facility] Report Status Final [id number] [facility] 05/04/2005 13:3 5 EST 05/04/2005 21:21 EST Provider Unknown MICROBIOLOGY - GENER AL ORDERABLES Performing Organization Address [facility] Co de Phone Number [facility] [address] [place] [address] * N. GONORRHOEAE AMPLIFIED PROBE (05/04/2005 13:35 EST) Result No Neisseria gonorrhoeae DNA detected by hand pattern marker mediated amplification. [facility] Report Status Final [id number] [facility] Specimen Description [facility] 05/04/2005 13:3 5 EST 05/04/2005 21:21 EST Provider Unknown MICROBIOLOGY - GENER AL ORDERABLES Performing Organization Address [facility] de Phone Number [facility] [address] [place] [address] documented in this encounter Visit Diagnoses Not on filedocumented in this encounter Care Teams Front Desk Team Member Relationship Specialty Start Date End Date Tracey Butler, RETAIL SALES VITAMIN CONSULTANT PCP - General 08/08/08 08/12/13 documented as of this encounter
--- OUTSIDE RECORDS SUMMARY | 2023-10-04 01:05 | XMS_ITS | Encounter Summary ---
Author Organization [facility] Address [address] [place] [address] Care Team Providers Care Hansard Reporter Name Role Phone Tracey Butler NP Primary Care Provider Unavailelayne e Encounter Details Date Type Department Care Team (Late st Contact Info) Description 11/20/2006 Results Only [facility] [address] [place] [address] Unknown, Provider, Social History Tobacco Use Types [...] Procedure Name Priority Date/Time Associated Diagnosis Comments VITAMIN B12 Routine 11/20/2006 16:06 EDT documented in this encounter Results * VITAMIN B12 (11/20/2006 16:06 EDT) Vitamin B-12 310 250 - 1100 pg/ml [facility] 11/20/2006 16:0 6 EDT 11/20/2006 21:24 EDT Provider Unknown CHEMISTRY & BLOOD GA S ORDERABLES [facility] [address] [place] [address] documented in this encounter Visit Diagnoses Not on filedocumented in this encounter Care Teams Hansard Reporter Relationship Specialty Start Date End Date Tracey Butler, METAL MELTER PCP - General 08/08/08 08/12/13 documented as of this encounter
--- OUTSIDE RECORDS SUMMARY | 2023-10-04 01:05 | XMS_ITS | Encounter Summary ---
Author Organization [facility] Address [address] [place] [address] Care Team Providers Care Centrifugal Casting Machine Tender Name Role Phone Tracey Butler NP Primary Care Provider Unavailelayne e Encounter Details Date Type Department Care Team (Late st Contact Info) Description 08/06/2005 Results Only [facility] [address] [place] [address] Unknown, Provider, Social History Tobacco Use Types [...] Procedure Name Priority Date/Time Associated Diagnosis Comments T4 FREE Routine 08/06/2005 9:35 EDT documented in this encounter Results * T4 FREE (08/06/2005 9:35 EDT) Free T4 1.1 0.8 - 1.8 ng/dL [facility] 08/06/2005 9:35 EDT 08/08/2005 11:17 EDT Provider Unknown CHEMISTRY & BLOOD GA S ORDERABLES [facility] [address] [place] [address] documented in this encounter Visit Diagnoses Not on filedocumented in this encounter Care Teams Centrifugal Casting Machine Tender Relationship Specialty Start Date End Date Tracey Butler, INFRASTRUCTURE DEVELOPER PCP - General 08/08/08 08/12/13 documented as of this encounter
--- OUTSIDE RECORDS SUMMARY | 2023-10-04 01:05 | XMS_ITS | Encounter Summary ---
Author Organization [facility] Address [address] [place] [address] Care Team Providers Care Match Maker Name Role Phone Tracey Butler POWER LINE INSTALLER Primary Care Provider Valdo isaac Encounter Details Date Type Department Care Team (Latest Contact Info) Description 09/12/2008 15:25 EDT - 09/12/2008 23:59 EDT Hospital Encounter [facility] [phone] Unknown, Provider, Discharge Disposition: Home or Self Care Social History Tobacco Use Types Packs/Day Years Used Date Smoking Tobacco: Never Assessed Sex and Gender Information Value Date Recorded Sex Assigned at Female 05/26/2021 17:11 EDT Gender Identity Female 05/26/2021 17:11 EDT Sexual Orientation Not on file documented as of this encounter Discharge Disposition Disposition Code Departure Means Destination Home or Self Longterm documented in this encounter Plan of Treatment Not on file documented as of this encounter Visit Diagnoses Not on filedocumented in this encounter Care Teams Match Maker Relationship Specialty Start Date End Date Tracey Butler POWER LINE INSTALLER PCP - General 08/08/08 08/12/13 documented as of this encounter
--- OUTSIDE RECORDS SUMMARY | 2023-10-04 01:05 | XMS_ITS | Encounter Summary ---
Author Organization [facility] Address [address] [place] [address] Care Team Providers Care Observatory Director Name Role Phone Tracey Butler NP Primary Care Provider Unavailelayne e Encounter Details Date Type Department Care Team (Late st Contact Info) Description 01/25/2007 Results Only [facility] [address] [place] [address] Unknown, Provider, Social History Tobacco Use Types [...] Date/Time Associated Diagnosis Comments VITAMIN B12 Routine 01/25/2007 8:08 EST documented in this encounter Results * VITAMIN B12 (01/25/2007 8:08 EST) Vitamin B-12 679 250 - 1100 pg/ml [facility] 01/25/2007 8:08 EST 01/25/2007 21:49 EST Provider Unknown CHEMISTRY & BLOOD GA S ORDERABLES [facility] [address] [place] [address] documented in this encounter Visit Diagnoses Not on filedocumented in this encounter Care Teams Observatory Director Relationship Specialty Start Date End Date Tracey Butler, INSURANCE EXECUTIVE PCP - General 08/08/08 08/12/13 documented as of this encounter
--- OUTSIDE RECORDS SUMMARY | 2023-10-04 01:05 | XMS_ITS | Encounter Summary ---
[place] [address] Care Team Providers Care Design Project Manager Name Role Phone Dina Diaz Primary Care Provider + Encounter Details Date Type Department Care Team (Late st Contact Info) Description 07/20/2023 External Results Pre-Admission Testing at [facility] [address] [place] [address] Social History Tobacco Use Types Packs/Day Years [...] Procedure Name Priority Date/Time Associated Diagnosis Comments EKG 12-LEAD Routine 07/18/2023 11:38 AM EDT documented in this encounter Results * EKG 12 Lead (07/18/2023 11:38 AM EDT) Historical Provider ECG ORDERABLES documented in this encounter Visit Diagnoses Not on filedocumented in this encounter Care Teams Design Project Manager Relationship Specialty Start Date End Date Dina Diaz PA [address] [place] [address] [place] [address] PCP - General Internal Medicine 05/26/20 documented as of this encounter
--- OUTSIDE RECORDS SUMMARY | 2023-10-04 01:05 | XMS_ITS | Encounter Summary ---
[place] [address] Care Team Providers Care Bathhouse Keeper Name Role Phone Dina Diaz Primary Care Provider + Encounter Details Date Type Department Care Team (Late st Contact Info) Description 07/18/2023 12:45 PM EDT Telephone Pre-Admission Testing at [facility] [address] [place] [address] Social History Tobacco Use Types Packs/Day Years [...] PM EDT documented as of this encounter Progress Notes * Citlaly Echeverria RN - 07/18/2023 12:59 PM EDT Have you tested positive for COVID or had symptoms of Covid in the last 4 weeks? [x]No []Yes If Yes; Date of positive test: Type of test performed: Date of resolution of symptoms: documented in this encounter Plan of Treatment Not on file documented as of this encounter Visit Diagnoses Not on filedocumented in this encounter Care Teams Bathhouse Keeper Relationship Specialty Start Date End Date Dina Diaz PA [address] [place] [address] [place] [address] PCP - General Internal Medicine 05/26/20 documented as of this encounter
--- OUTSIDE RECORDS SUMMARY | 2023-10-04 01:05 | XMS_ITS | Clinical Summary ---
[facility] Address [facility] [place] [address] Care Team Providers Care Front Office Specialist Name Role Phone Dina Diaz Primary Care Provider + Allergies Active Allergy Reactions Criticality Noted Date Comments Aripiprazole Other (See Comments) High 01/02/2014 hallucinations Amitriptyline Hcl Armodafinil Other (See Comments) 11/05/2021 Excessive runny nose and hard to swallow. Diltiazem Other (See Comments) Medium 11/04/2021 Chest pain Hydrocodone Imipramine 11/10/2014 Latex 11/05/2021 Other reaction(s): Unknown Metoprolol Other (See Comments) 11/05/2021 Other reaction(s): Depression depression Morphine Sulfate Nausea And Vomiting Medium Oxycodone Hcl Shellfish Derived Anaphylaxis High 04/08/2022 Soy 04/21/2014 Tree Nuts 02/23/2015 Wheat 07/07/2023 Medications Medication Sig Dispensed Refills Start Date End Date Status EPINEPHrine (EPIPEN) 0.3 mg/0.3 mL (1:1,000) Auto-InjectorIndicati ons:Allergic rhinitis, unspecified allergic rhinitis type Inject 0.3 mLs into the muscle once as needed. 1 each 1 01/08/2015 Active atorvastatin (Lipitor) 20 mg Tablet TAKE 1 TABLET BY MOUTH ONCE DAILY 07/01/2020 Active prochlorperazine (Compazine) 5 mg Tablet Take 2 tablets by mouth every 8 hours as needed (For headache associated migraine, also for nausea/vomiting). 15 tablet 3 06/29/2021 Active estradioL (ESTRACE) 0.01 % (0.1 mg/gram) CreamIndications:Dysp areunia, female Place 1 g vaginally twice a week. 42.5 g 12 11/25/2021 Active hydrOXYzine (Atarax) 10 mg Tablet 1 tablet at onset of mild to moderate headache. Can repeat in 8-10 hours 30 tablet 2 02/03/2022 Active Additional Information Patient taking differently: 10 mg Oral NIGHTLY, 1 tablet at onset of mild to moderate headache. Can repeat in 8-10 hours, Reported on 07/18/2023 acetaminophen 500 mg Capsule Take 1 tablet by mouth as needed. Active Qulipta 60 mg Tablet Take 1 tablet by mouth daily. 04/08/2022 Active azelastine (ASTELIN) 137 mcg (0.1 %) Aerosol, Victor Every 12 hours. 03/17/2020 Activ e baclofen (Lioresal) 10 mg Tablet 90 EA, TAKE 1 TABLET BY MOUTH THREE TIMES DAILY NEEDED FOR MILD TO MODERATE HEADACHES - MAX DAILY DOSE 3 TABLETS (30MG), 0 Refill(s) 04/06/2022 Active rimegepant (Nurtec ODT) 75 mg disintegrating tablet Take 75 mg by mouth every other day. Active ketorolac (Toradol) 10 mg tablet Take 10 mg by mouth every 6 hours as needed for Pain (for migraine). Active levocetirizine (Xyzal) 5 mg tablet Take 5 mg by mouth as needed. Active naproxen sodium (ALEVE) 220 mg Capsule Take 220 mg by mouth every 12 hours as needed. Active traMADoL (Ultram) 50 mg tablet Take 1 tablet by mouth every 6 hours as needed for Pain. 15 tablet 07/25/2023 Active Active Problems Problem Noted Date Diagnosed Date Lumbar herniated disc 04/13/2022 HNP (herniated nucleus pulposus), lumbar 023 Intractable chronic migraine without aura and without status migrainosus 06/29/2021 Migraine with aura and witho ut status migrainosus, not intractable 06/29/2021 Medication overuse headache 06/29/2021 Depression with anxiety 07/16/2015 Deficiency of vitamin B12 05/07/2015 Hypothyroidism 03/20/2015 Overview (06/29/2021): Will not take medication for weight gain side effect Sleep apnea 03/20/2015 Stress incontinence, female 01/08/2015 Vitamin D deficiency 07/22/2014 Polyp of colon, adenomatous 04/15/2014 Overview (04/15/2014): 09/03/13. 5 yr f/u. DDD (degenerative disc disease), lumbar 03/28/19 15 Low back pain 03/28/2014 LSIL (low grade squamous int raepithelial lesion) on Pap smear 01/26/2014 Overview (01/30/2014): July 2013 Scanned documents. With HPV+ PTSD (post-traumatic stress disorder) 12/13/2013 Bipolar disorder 12/13/2013 Overview (06/29/2021): meds as of . Lamictal 100mg BID. [place] [facility] 450mg 1 1/2 tabs qhs. cymbalta 60mg. Zalephon for sleep. Has seen Dr. Singer at [facility]. Fibromyalgia 12/13/2013 Allergic rhinitis 08/02/2010 Resolved Problems Problem Noted Date Diagnosed Date Resolved Date Neck pain, chronic 06/10/2014 2 Thyroid nodule 04/15/2014 06/29/2021 Work related injury 12/06/2013 06/30/19 22 Back pain 02/05/2013 06/29/2021 Food allergy 08/02/2010 03/10/2014 Overview (08/02/2010): IgE-mediated food allergy to multiple different food allergens. Encounters Date Type Department Care Team Description 07/25/2023 7:30 AM EDT - 07/25/2023 10:00 AM EDT Surgery Operating Room Renea Mcder[place] [address] Hardy Gregorio MD LAMINOTOMY W\DECOMPRESSION, ONE LVL, LUMBAR ,RE-EXPL (INCLDNG PART. FACETECTOMY, FORAMINOTOMY &\OR DISCECTOMY) (WRVU 18.76) 07/25/2023 7:29 AM EDT Anesthesia Event Operating Room [address] [address] Nathan Becerril, KWAKU 07/25/2023 6:40 AM EDT Ancillary Procedure Radiology Xray at [address] [address] 07/25/2023 6:16 AM EDT - 07/25/2023 10:13 AM EDT Hospital Encounter Post Acute Care Unit at [address] [phone] Hardy Gregorio MD Displacement of lumbar intervertebral disc without myelopathy Discharge Disposition: Home 07/20/2023 External Results Pre-Admission Testing at [address] [address] 07/18/2023 12:45 PM EDT Telephone Pre-Admission Testing at [address] [address] from Last 3 Months Immunizations Name Administration Dates Next Due Influenza PF, Split 12/31/2010 Influenza Unspecified Formulation 04/01/2014 Influenza Vaccine, Whole 01/18/2010 MMR Vaccine LIVE 04/01/2014 TD Adult 04/27/2010 Tdap 05/24/2013 Tuberculin Skin Test, PPD 04/01/2014 Family History Medical History Relation Comments Migraines Daughter 1 Migraines Daughter 2 Diabetes Father Breast Cancer Maternal Aunt 1 Breast Cancer Maternal Aunt 2 Alzheimer Disease Maternal Grandmother Alzheimer Disease Mother Coronary Artery Disease Mother Migraines Mother Migraines Son Aneurysm Neg Hx Relation Status Comments Daughter 1 Alive Daughter 2 Alive Father Maternal Aunt 1 Maternal Aunt 2 Maternal Grandmother Mother Alive Son Alive Social History Tobacco Use Types Packs/Day Years [...] Orientation Straight 09/09/2020 10 :10 PM EDT Last Filed Vital Signs Vital Sign Reading [...] Mass Index 24.66 07/25/2023 6:32 AM EDT Plan of Treatment Health Maintenance Due Date Last Done Comments CT Colonography 1971 FIT DNA 1971 FIT 1971 Sigmoidoscopy (10 year) with FIT yearly 1971 Sigmoidoscopy 1971 HIV screen 07/23/1989 Hepatitis C Screening 07/23/1989 Hepatitis B vaccine (0-59 yrs) (1) 07/23/1990 Breast Cancer Share Decision Needed 2011 PAP Smear 06/09/2016 06/10/2015, 04/2013 (Outside per patient (enter details in comments)), 07/29/2013 Breast Cancer screening 03/26/2017 03/26/2015 Colonoscopy 09/03/2018 09/03/2013 (Report in e[facility]) Colorectal Cancer Screening 09/03/2018 Zoster vaccine (1 of 2) 07/23/2021 Covid-19 Vaccine (3 - 2022-2 4 season) 2022 07/21/2020, 06/21/2020 Tetanus vaccine 05/25/2023 05/24/2013, 04/27/2010 Influenza (Flu) vaccine (1 o f 1 - Influenza standard series) 10/29/2023 04/01/2014, 12/31/2010, 01/18/2010 Tdap adult Completed 05/24/2013 HPV test Discontinued 06/10/2015, 04/2013 (Outside per patient (enter details in comments)) Medical Devices Implanted Type Area Filler Spreader Device Identifier Shelf Expiration Date Model / Serial / Lot Claudy Lima Ur ny,Incont ([id number]) - [id number] Implanted:Qty : 1 on 10/13/2015 by Abundio Griffith MD at [facility] IMPLANTS N/A: Pelvis [employer] - [id number] 06/24/2018 [facility]-[id number] / / [id number] Procedures Procedure Name Priority Date/Time Associated Diagnosis Comments XR FLUORO NO RAD <1HR - OR USE Routine 07/25/2023 8:40 AM EDT Redo Excis Lumbar Disc (99913) 07/25/2023 7:29 AM EDT RECURRENT LEFT L4/5 HNP POCT URINE Routine 07/25/2023 7:18 AM EDT EKG 12-LEAD Routine 07/18/2023 11:38 AM EDT EXTERNAL PAP SMEAR RESULT PANEL Routine 06/10/2015 8:43 AM EDT MAMMO SCREENING CAD AND GIL BILATERAL Routine 03/26/2015 10:04 AM EST from Last 3 Months or Most Recently Relevant to Health Maintenance Results * XR Fluoro No Rad <1Hr [...] MD POINT OF CARE TEST O RDERABLES * EKG 12 Lead (07/18/2023 11:38 AM EDT) Historical Provider ECG ORDERABLES * (ABNORMAL) External Pap Smear (06/10/2015 8:43 AM EDT) HPV Interpretation NOT DETECTED(Exte rnal Lab) NOT DETECTED [facility] RESULT CONVERSION Comment: Sourced from Lily Henrique Conversion External PAP Smear 06/10/2015 8:43:00 AM; See legacy Glycosan system for full report([facility] Associate al Lab) [facility] RESULT CONVERSION Comment: TESTS: ? SP and HPV DNA (1) ?CLINICAL HISTORY/INFORMATION: ?LMP DATE: N/P ?SOURCE: Cervix ? COMMENTS: LMP: ABLATION ?COLPO JUNE 2013 ? ABNORMAL - LOW GRADE DYSPLASIA ? HORMONES: NONE ? SPECIMEN ADEQUACY: ? Satisfactory for Evaluation ?No endocervical/transformation zone component identified ? FINAL INTERPRETATION ?? NEGATIVE FOR INTRAEPITHELIAL LESION OR MALIGNANCY ?Screener ?ELECTRONIC SIGNATURE ON FILE ?? EDR ? CT(ASCP) ?EDR ? CT(ASCP) ? Please note: ??Source: ??OTHER Sourced from Angela Duenas Conversion 06/10/2015 8:43 AM EDT His Henrique Provider EXTERNAL LAB ORDER JASPAL [facility] RESULT CONVERSION * Mammo Screen CAD and Gil Bilat (Generic) (03/26/2015 10:04 AM EST) Anatomical Region Laterality Modality Breast Bilateral Mammography 03/26/2015 10:0 4 AM EST Narrative 05/01/2015 11:38 AM EST External Results Angela Duenas ADDENDED REPORT EXAMINATION: ??[facility] 8099 - GIL HD 3D/C SCREEN BILAT DIAGNOSIS: ?ROUTINE MAMMO ENCNTR FOR GENERAL ADULT MEDIC REASON: ? routine mammo routine mammo RESULT: ? Clinical Indication: ??Screening exam. Findings: ? The breasts are symmetric in size and are of heterogeneous density. ??I see no breast masses, skin thickening nor clustered microcalcifications. ??There are very fine microcalcifications scattered through the upper outer breast parenchyma bilaterally. ??These appearances are benign. ??In addition, there is subtle parenchymal distortion suggested on the right MLO projection, superiorly. ??This is not seen on the CC projection and does not appear aggressive by tomography. The breasts are otherwise unremarkable. CC and MLO projections as well as tomography were reviewed. ??The films were also reviewed with the [employer] Computer Aided Detection System (Version 10.0). IMPRESSION: ? ACR category 0 mammogram - incomplete exam. ?? Subtle parenchymal asymmetry along the upper right breast, appreciated only on the MLO view. ??Although my index of suspicion for an aggressive process is quite low, I do feel this warrants additional mammographic views to include compression MLO and a true lateral view. ?? Further assessment will then be directed by these additional views which I expect to be benign. ??I have no concerns with regard to the left breast. ASSESSMENT: ? 0 - Incomplete: Need additional imaging information and/or prior mammograms for comparison. 04/29/15 ADDENDUM: ?I now have old films for comparison from [place], [place] and the scarring in the right breast appears to be stable and related to prior surgery. ??Hence, I would not recommend additional imaging at this point and this will revert to a Category 2 mammogram. ?? Routine yearly screening recommended. INTERPRETING PHYSICIAN:dexter SUAREZ M.D. Apr 20 2015 ??4:08P ? TRANSCRIBED BY/DATE:tab LS ??on Apr 21 2015 ??7:09A ELECTRONICALLY AUTHORIZED BY: ? EMY SUAREZ M.D. ? Mar ??2015 11:38A Procedure Note Emy Suarez MD - 10/08/2016 External Results Angela Duenas ADDENDED REPORT EXAMINATION: [facility] 8099 - GIL HD 3D/C SCREEN BILAT DIAGNOSIS: ROUTINE MAMMO ENCNTR FOR GENERAL ADULT MEDIC REASON: routine mammo routine mammo RESULT: Clinical Indication: Screening exam. Findings: The breasts are symmetric in size and are of heterogeneous density. I see no breast masses, skin thickening nor clustered microcalcifications. There are very fine microcalcifications scattered through the upper outer breast parenchyma bilaterally. Theseappearances are benign. In addition, there is subtle parenchymal distortionsuggested on the right MLO projection, superiorly. This is not seen on the CC projection and does not appear aggressive by tomography. The breasts are otherwise unremarkable. CC and MLO projections as well as tomography were reviewed. The filmswere also reviewed with the [employer] Computer Aided Detection System (Version 10.0). IMPRESSION: ACR category 0 mammogram - incomplete exam. Subtle parenchymal asymmetry along the upper right breast, appreciated only onthe MLO view. Although my index of suspicion for an aggressive process isquite low, I do feel this warrants additional mammographic views to include compression MLO and a true lateral view. Further assessment will thenbe directed by these additional views which I expect to be benign. I haveno concerns with regard to the left breast. ASSESSMENT: 0 - Incomplete: Need additional imaging informationand/or prior mammograms for comparison. 04/29/15 ADDENDUM: I now have old films for comparison from [place], [place] and the scarring in the right breast appears to be stable and related to prior surgery. Hence, I would not recommend additional imaging at this point and this will revert to a Category 2 mammogram. Routine yearly screening recommended. INTERPRETING PHYSICIAN:dexter SUAREZ M.D. Apr 20 2015 4:08P TRANSCRIBED BY/DATE:dexter REINOSO on Apr 21 2015 7:09A ELECTRONICALLY AUTHORIZED BY: EMY SUAREZ M.D. May 01 2015 11:38A Feli Segura DO IMG MAMMO ORDERABLE S from Last 3 Months or Most Recently Relevant to Health Maintenance Advance Directives * Attempt Cardiopulmonary Resuscitation - Inpatient (Latest Code Status on File) Date Activated Date Inactivated Comments 09/12/2022 11:25 AM 09/12/2022 5:04 PM Question Answer Comments Code Status decision made by: Patient * Full Code Date Activated Date Inactivated Comments 10/13/2015 6:57 AM 10/13/2015 12:54 PM Question Answer Comments Does patient have capacity to make decision: Yes Care Teams Front Office Specialist Relationship Specialty Start Date End Date Dian Diaz PA [address] [place] [id number] PCP - General Internal Medicine 05/26/20
--- OUTSIDE RECORDS SUMMARY | 2023-10-04 01:05 | XMS_ITS | Encounter Summary ---
Author Organization [facility] Address [address] [place] [address] Care Team Providers Care Conservation Coordinator Name Role Phone Tracey Butler NP Primary Care Provider Valdo e Encounter Details Date Type Department Care Team (Latest Contact Info) Description 08/08/2008 12:52 EDT - 08/08/2008 23:59 EDT Hospital Encounter [facility] [phone] Unknown, Provider, Discharge Disposition: Home or Self [...] Name Priority Date/Time Associated Diagnosis Comments XR CHEST 1V [id number] 08/08/2008 15: 35 EDT documented in this encounter Results * XR CHEST 1V [id number] (08/08/2008 15:35 EDT) Anatomical Region Laterality Modality Other 08/08/2008 15:3 5 EDT 08/08/2008 17:48 EDT Narrative 08/08/2008 17:48 EDT XR CHEST 1V [id number] ??Aug 08, 2008 3:35:00 PM Clinical History: ALLERGIC REACTION Comparison: 12/23/2006. Findings: A single AP portable view of the chest shows the lungs are clear. The cardiomediastinal silhouette is normal. There are no obvious pleural effusions. The upper abdomen is unremarkable. The osseous structures are intact. Impression: Normal AP portable chest film. Procedure Note 08/08/2008 XR CHEST 1V [id number] Aug 08, 2008 3:35:00 PM Clinical History: ALLERGIC REACTION Comparison: 12/23/2006. Findings: A single AP portable view of the chest shows the lungs are clear. The cardiomediastinal silhouette is normal. There are no obvious pleural effusions. The upper abdomen is unremarkable. The osseous structures are intact. Impression: Normal AP portable chest film. Theron Saldana MD IMG DIAGNOSTIC IMAGI NG ORDERABLES documented in this encounter Visit Diagnoses Not on filedocumented in this encounter Care Teams Conservation Coordinator Relationship Specialty Start Date End Date Tracey Butler, SILO FILLER PCP - General 08/08/08 08/12/13 documented as of this encounter
--- OUTSIDE RECORDS SUMMARY | 2023-10-04 01:05 | XMS_ITS | Encounter Summary ---
Author Organization [facility] Address [address] [place] [address] Care Team Providers Care Vascular Technologist Name Role Phone Tracey Butler NP Primary Care Provider Valdo e Encounter Details Date Type Department Care Team (Latest Contact Info) Description 10/03/2008 2:52 EDT - 10/03/2008 23:59 EDT Hospital Encounter [facility] [phone] Unknown, Provider, Discharge Disposition: Home or Self Care Social History Tobacco Use Types Packs/Day Years Used Date Smoking Tobacco: Never Assessed Sex and Gender Information Value Date Recorded Sex Assigned at Female 05/26/2021 17:11 EDT Gender Identity Female 05/26/2021 17:11 EDT Sexual Orientation Not on file documented as of this encounter Discharge Disposition Disposition Code Departure Means Destination Home or Self Skilled Nursing documented in this encounter Plan of Treatment Not on file documented as of this encounter Procedures Procedure Name Priority Date/Time Associated Diagnosis Comments MM DIGITAL MAMMO DIAG UNI G0206 10/03/2008 20:47 EDT US BREAST UNI OR CARLOS [id number] 10/03/2008 16:20 EDT documented in this encounter Results * MM DIGITAL MAMMO DIAG UNI G0206 (10/03/2008 20:47 EDT) Anatomical Region Laterality Modality Other 10/03/2008 20:4 7 EDT 10/22/2008 14:49 EDT Narrative 10/22/2008 14:49 EDT This report has been dictated at [facility]. ??If you would like a copy of this report, please call . Procedure Note 10/22/2008 This report has been dictated at [facility]. If you would like a copy of this report, please call . Tracey Fonseca [place] HALF BACKER IMG NM ORDERABLES * US BREAST UNI OR CARLOS [id number] (10/03/2008 16:20 EDT) Anatomical Region Laterality Modality Other 10/03/2008 16:2 0 EDT 10/03/2008 16:27 EDT Narrative 10/03/2008 16:27 EDT US BREAST UNI OR CARLOS [id number] ??Oct 03, 2008 4:20:00 PM Clinical History/Comments: LT. BREAST 3 MO. F/U Comparison: None. Findings left breast: The upper-outer quadrant of the left breast was scanned with ultrasound to evaluate for a possible nodule associated with category 3 calcifications in the upper outer quadrant. No nodules are identified. No definitive calcifications are seen. Impression left breast core birads category 3. Probably benign. Recommendation left breast: 3 month followup mammography is recommended. The drop count associate discussed the imaging results and follow up recommendations with the patient at the time of the examination. The patient will be notified of her/his breast imaging results via a lay letter from Radiology. ??Radiology will contact the patient directly regarding any findings which require additional imaging (Category 0) at this time. Procedure Note 10/03/2008 US BREAST UNI OR CARLOS [id number] Oct 03, 2008 4:20:00 PM Clinical History/Comments: LT. BREAST 3 MO. F/U Comparison: None. Findings left breast: The upper-outer quadrant of the left breast was scanned with ultrasound to evaluate for a possible nodule associated with category 3 calcifications in the upper outer quadrant. No nodules are identified. No definitive calcifications are seen. Impression left breast core birads category 3. Probably benign. Recommendation left breast: 3 month followup mammography is recommended. The drop count associate discussed the imaging results and follow up recommendations with the patient at the time of the examination. The patient will be notified of her/his breast imaging results via a lay letter from Radiology. Radiology will contact the patient directly regarding any findings which require additional imaging (Category 0) at this time. Tracey Butler NP IMG US ORDERABLES documented in this encounter Visit Diagnoses Not on filedocumented in this encounter Care Teams Vascular Technologist Relationship Specialty Start Date End Date Tracey Butler NP PCP - General 08/08/08 08/12/13 documented as of this encounter
--- OUTSIDE RECORDS SUMMARY | 2023-10-04 01:05 | XMS_ITS | Encounter Summary ---
[place] [address] Care Team Providers Care Rotoformer Backtender Name Role Phone Dina Diaz Primary Care Provider + Encounter Details Date Type Department Care Team (Late st Contact Info) Description 08/05/2022 Ancillary Procedure Radiology at [facility] [address] [place] [address] Hardy Gregorio MD [address] [place] [address] Social History Tobacco Use Types Packs/Day Years [...] FILM LIBRARY STORAGE ONLY MR SPINE Routine 08/05/2022 12:00 AM EDT documented in this encounter Results * Film Library- Storage Only MR Spine (08/05/2022 12:00 AM EDT) Narrative ZANDER BARRIENTOS - 08/09/2022 10:45 AM EDT This exam is auto-finalizing. It's purpose is for storage only. Hardy Gregorio MD IMG FILM LIBRARY ORD ERABLES ILIA[place], [place] documented in this encounter Visit Diagnoses Not on filedocumented in this encounter Care Teams Rotoformer Backtender Relationship Specialty Start Date End Date Dina Diaz PA [address] [place] [address] [place] [address] PCP - General Internal Medicine 05/26/20 documented as of this encounter
--- OUTSIDE RECORDS SUMMARY | 2023-10-04 01:05 | XMS_ITS | Encounter Summary ---
Author Organization [facility] Address [address] [place] [address] Care Team Providers Care Rn Traveling Name Role Phone Tracey Butler NP Primary Care Provider Valdo e Encounter Details Date Type Department Care Team (Latest Contact Info) Description 12/17/2008 0:19 EDT - 12/17/2008 23:59 EDT Hospital Encounter [facility] [place] [phone] Unknown, Provider, Discharge Disposition: Home or Self [...] Comments MM DIGITAL MAMMO DIAG UNI G0206 12/17/2008 21:13 EDT documented in this encounter Results * MM DIGITAL MAMMO DIAG UNI G0206 (12/17/2008 21:13 EDT) Anatomical Region Laterality Modality Other 12/17/2008 21:1 3 EDT 12/29/2008 13:08 EST Narrative 12/29/2008 13:08 EST This report has been dictated at [facility]. ??If you would like a copy of this report, please call . Procedure Note 12/29/2008 This report has been dictated at [facility]. If you would like a copy of this report, please call . Provider Unknown MD KHAN NM ORDERABLES documented in this encounter Visit Diagnoses Not on filedocumented in this encounter Care Teams Rn Traveling Relationship Specialty Start Date End Date Tracey Butlre, ADMINISTRATIVE OFFICE MANAGER PCP - General 08/08/08 08/12/13 documented as of this encounter
--- OUTSIDE RECORDS SUMMARY | 2023-10-04 01:05 | XMS_ITS | Encounter Summary ---
Author Organization [facility] [place] [address] Care Team Providers Care Medical Customer Service Representative Name Role Phone Dina Diaz Primary Care Provider + Reason for Visit * Auth/Cert (Routine) Specialty Diagnoses / Procedures Referred By Contac t Referred To Contact Diagnoses HNP (herniated nucleus pulposus), lumbar RECURRENT LEFT L4/5 HNP Procedures PRO REDO EXCIS LUMBAR DISC LAMINOTOMY W\DECOMPRESSION, ONE LVL, LUMBAR ,RE-EXPL (INCLDNG PART. FACETECTOMY, FORAMINOTOMY &\OR DISCECTOMY) (WRVU 18.76) Hardy Gregorio MD [address] [place] [address] [facility] Referral ID Status Reason Start Date Expiration Date Visits Re quested Visits Authorized [id number] 1 1 Encounter Details Date Type Department Care Team (Latest Contact Info) Description 07/25/2023 6:16 AM EDT - 07/25/2023 10:13 AM EDT Hospital Encounter Post Acute [facility] Unit at [facility] [address] [place] [phone] Hardy Gregorio MD [address] [place] [address] Displacement of lumbar intervertebral disc without myelopathy Discharge Disposition: Home Social History Tobacco Use [...] six weeks after surgery with a Physician???s Prescription Clerk at the surgeon???s office. You will have [...] when to stop taking it. Only take mbze-who-[id number] or prescription medicine for pain, discomfort or [...] If you have any questions, please call [facility] Neurology and Neurosurgery at [phone], during business hours of Monday through Monday from 8:00 a.m. until 4:00 p.m. In case of emergency during non-business hours, please call the same main number and follow the prompts to page the neurosurgeon plastic production machine setter. SMOKING CESSATION INFORMATION: [place] QUITLINE: [place] QUITLINE: [email or web address] If you smoke, stop now! Smoking may impede healing. MAKE SURE YOU: Understand these instructions. Will seek medical care if you are feeling poor, or get worse. Will call the surgeon???s office with any questions or concerns at : [phone] The above information has been presented or [...] azelastine (ASTELIN) 137 mcg (0.1 %) Aerosol, Hosmer Every 12 hours. 03/17/2020 baclofen (Lioresal) 10 [...] Gregorio MD - 07/25/2023 7:49 AM EDT [facility] Operative Note [facility] [address] [id number] Patient Name: Emilee Wilhelm : [id number] MR#: [id number] Case Date: 07/25/2023 Case Scheduled Time: 729 Surgeon: Surgeons and Role: * Hardy Gregorio MD - Primary * Zeke Bob PA - Physician Prescription Clerk Preoperative diagnosis: RECURRENT LEFT L4/5 HNP Postoperative [...] the duration of the operative session. The assistant loan processor adequately prepped the operative site and maintained [...] 8:40 AM EDT Redo Excis Lumbar Disc (25121) 07/25/2023 7:29 AM EDT RECURRENT LEFT L4/5 [...] RDERABLES documented in this encounter Visit Diagnoses Diagnosis Displacement of lumbar intervertebral disc without myelopathy documented in this encounter Administered Medications Inactive [...] and symptomatic. Notify Anesthesia., PACU Recovery, Routine ePHEDrine (50 mg/mL) injection 12.5 mg 12.5 [...] 1230, Day of Surgery (Day of Procedure) 07 (New Bag - Prov ider: Nathan Becerril [...] Recovery documented in this encounter Care Teams Medical Customer Service Representative Relationship Specialty Start Date End Date Dina Diaz PA [address] [place] [address] [place] [address] PCP - General Internal Medicine 05/26/20 documented as of this encounter
--- OUTSIDE RECORDS SUMMARY | 2023-10-04 01:05 | XMS_ITS | Encounter Summary ---
Author Organization [facility] Address [address] [place] [address] Care Team Providers Care Operations Section Manager Name Role Phone Tracey Butler NP Primary Care Provider Valdo e Encounter Details Date Type Department Care Team (Latest Contact Info) Description 12/20/2008 10:26 EDT - 12/20/2008 23:59 EDT Hospital [place] [facility] [phone] Unknown, Provider, Discharge Disposition: Home or Self [...] Priority Date/Time Associated Diagnosis Comments XR CHEST 2V [id number] 12/20/2008 11: 31 EDT documented in this encounter Results * XR CHEST 2V 28714 (12/20/2008 11:31 EDT) Anatomical Region Laterality Modality Other 12/20/2008 11:3 1 EDT 12/20/2008 11:52 EDT Narrative 12/20/2008 11:52 EDT XR CHEST 2V [id number] ??Dec 20, 2008 11:31:00 AM Clinical History/Comments: CHEST PAIN Comparison: 08/08/2008. Findings: 2 views of the chest were performed showing no evidence of focal consolidation or pneumothorax. There are no pleural effusions. The lung volumes are slightly low and I believe this probably accounts for the increased prominence of the interstitial lung markings. The cardiomediastinal silhouette is normal. The pulmonary vascularity is normal. The upper abdomen is unremarkable. Impression: No evidence of acute cardiopulmonary disease. Procedure Note 12/20/2008 XR CHEST 2V [id number] Dec 20, 2008 11:31:00 AM Clinical History/Comments: CHEST PAIN Comparison: 08/08/2008. Findings: 2 views of the chest were performed showing no evidence of focal consolidation or pneumothorax. There are no pleural effusions. The lung volumes are slightly low and I believe this probably accounts for the increased prominence of the interstitial lung markings. The cardiomediastinal silhouette is normal. The pulmonary vascularity is normal. The upper abdomen is unremarkable. Impression: No evidence of acute cardiopulmonary disease. James Blackmon MD IMG DIAGNOSTIC IMAGI NG ORDERABLES documented in this encounter Visit Diagnoses Not on filedocumented in this encounter Care Teams Operations Section Manager Relationship Specialty Start Date End Date Tracey Butler, HAN PCP - General 08/08/08 08/12/13 documented as of this encounter
--- OUTSIDE RECORDS SUMMARY | 2023-10-04 01:05 | XMS_ITS | Encounter Summary ---
Author Organization [facility] Address [facility] [address] [address] Care Team Providers Care Boarder Steam Name Role Phone Dina Diaz Primary Care Provider + Reason for Visit * Reason Comments Post Op Encounter Details Date Type Department Care Team (Late st Contact Info) Description 05/03/2022 2:00 PM EST Office Visit Obstetrics [place] [address] Christina Dove, MARINE MECHANIC [facility] [place] [address] Postoperative state Social History Tobacco Use Types Packs/Day Years [...] Sign Reading Time Taken Comments Blood Pressure 110/56 05/03/2022 1:30 PM EST Pulse 97 05/03/2022 1:30 PM EST Temperature 37.3 ??C (99.2 ??F) 05/03/2022 1:30 PM ES T Respiratory Rate - - Oxygen Saturation 98% 05/03/2022 1:30 PM EST Inhaled Oxygen Concentration - - Weight 62.6 kg (138 lb 1.6 oz) 05/03/2022 1:30 P M EST Height 165.1 cm (5' 5) 05/03/2022 1:30 PM EST Body Mass Index 22.98 05/03/2022 1:30 PM EST documented in this encounter Progress Notes * Christina Dove, MARINE MECHANIC - 05/03/2022 2:00 PM EST FEMALE PELVIC MEDICINE AND RECONSTRUCTIVE SURGERY POST OPERATIVE VISIT Patient Active Problem List Diagnosis Date Noted [...] ??? Fibromyalgia 12/13/2013 ??? Allergic rhinitis 08/02/2010 Date of visit: 05/03/2022 Patient name: Emilee Wilhelm Date of surgery: 03/15/22 Procedure: transvaginal excision of suburethral sling. ??Cystourethroscopy. ??Pelvic floor injection, bilateral, 4 muscles Surgeon: Dr. Griffith Pathology: DIAGNOSIS A - Urethral sling, gross only (excision): ?? - Benign fibromuscular tissue with mild chronic inflammation. Subjective: Emilee Wilhelm is s/p the above procedures. She has been tolerating a regular diet. She denies nausea and vomiting, and she has been afebrile since surgery. Since surgery, she reports doing very well! Since surgery, she reports: None x Continued vaginal bleeding New pelvic related pain Abnormal vaginal discharge Burning with urination Blood in urine New prolapse symptoms since surgery Other Pain She reports no pain. Bladder Function Number of daytime voids: Every few hours Number of nocturia events: 1-2 times Urinary incontinence since surgery (y/n): none If yes, [place] Incontinence Severity Index: How often do you experience urinary leakage? 0. Never 1. Less than once a month 2. A few times a month 3. A few times a week 4. Every day and/or night Value 0 How much urine do you lose each time? 0. None 1. Drops 2. Small Splashes 3. More Value 0 The Severity Index is the product of the two questions 0 - NONE 1-2 Slight 3-6 Moderate 8-9 Severe 12 Very severe SCORE: 0 If yes, leaks with: Event Presence Event Presence NONE x [place] Walking Cold Weather Running Anticipation of going to the lavatory Cough/Sneeze First morning void Lifting Running water Laughing Other Voiding Dysfunction: Symptom Presence NONE x Straining to empty Incomplete emptying Weak stream Feeling the urge to void after voiding Dribbling Changed in position Difficulty initiating a stream Bowel Function How often do you have bowel movements? daily Any new defecatory problems since surgery?: no OBJECTIVE: BP 110/56 Pulse 97 Temp 37.3 ??C (99.2 ??F) Ht 165.1 cm (5' 5) Wt 62.6 kg (138 lb 1.6 oz) SpO2 98% BMI 22.98 kg/m?? [employer] Bladder Scanner/Ontuitive Bladder Scanner was used to obtain a postvoid residual to further delineate urinary symptoms. After the patient voided, 0 mL was measured as a postvoid residual. A farm supervisor is present for the examination. General: normal appearing female, pleasant mood, normal speech Abdomen: Abdomen soft, non-tender, bowel sounds normal. Back: Non-tender, without costovertebral angle or paraspinal tenderness Pelvic: Cough stress test (empty supine): neg External Genitalia: Vulva, Sterrett's and Bartholin glands normal, urethra without tenderness or mass Vagina: pink, smooth, pale Discharge?: none Cervix: surgically absnet Bimanual (uterus/adnexa): Uterus surgically absent, no masses/tenderness POP Q Measurements deferred Minimal descent with valsalva Impression: Emilee Wilhelm is recovering well s/p: Date of surgery: 03/15/22 Procedure: transvaginal excision of suburethral sling. ??Cystourethroscopy. ??Pelvic floor injection, bilateral, 4 muscles Surgeon: Dr. Griffith Pathology: DIAGNOSIS A - Urethral sling, gross only (excision): ?? - Benign fibromuscular tissue with mild chronic inflammation. Plan: Activity: slowly return to activity as tolerated without restrictions Return PRN to reassess Christina Dove APRN Division of Female Pelvic Medicine and Reconstructive Surgery documented in this encounter Plan of Treatment Not on file documented as of this encounter Procedures Procedure Name Priority Date/Time Associated Diagnosis Comments BLADDER SCANNER Routine 05/03/2022 Postoperative state POCT URINE DIPSTICK Routine 05/03/2022 Postoperative state documented in this encounter Results * Bladder Scanner (05/03/2022) Pathologist [facility] Bladder Scan (mL) 0 mL Christina Dove APRN URO PROC W/O RFL ORD ERABLES * POCT urine dipstick (05/03/2022) Pathologist [facility] POC Sp [place] 1.005 1.002 - 1.030 POC pH, UA 7.0 5.0 - 8.5 POC Leuk, UA Neg. Negative - Negative POC Nitrite, UA Neg. Negative - Negative POC Protein, UA Neg. Negative - Negative mg/dL POC Glucose, UA Norm. Normal - Normal mg/dL POC Ketone, UA Neg. Negative - Negative POC Urobil, UA Norm. 0.2 - 1.0 mg/dL POC Bili, UA Neg. Negative - Negative POC Blood, UA Neg. Negative - Negative oscar/uL Christina Dove APRN POINT OF CARE TEST O RDERABLES documented in this encounter Visit Diagnoses Diagnosis Postoperative state Other postprocedural status documented in this encounter Care Teams Boarder Steam Relationship Specialty Start Date End Date Dina Diaz PA [address] [place] [address] [place] [address] PCP - General Internal Medicine 05/26/20 documented as of this encounter
--- OUTSIDE RECORDS SUMMARY | 2023-10-04 01:05 | XMS_ITS | Encounter Summary ---
Author Organization [facility] [place] [address] Care Team Providers Care Intake Counselor Name Role Phone Dina Diaz Primary Care Provider + Encounter Details Date Type Department Care Team (Late st Contact Info) Description 05/20/2022 Orders Only Neurology at [address] [phone] Sanaz Aburto APRN [facility] [place] [place] [address] Social History Tobacco Use Types Packs/Day Years [...] on filedocumented in this encounter Care Teams Intake Counselor Relationship Specialty Start Date End Date Dina Diaz PA [address] [place] [id number] PCP - General Internal Medicine 05/26/20 documented as of this encounter
--- OUTSIDE RECORDS SUMMARY | 2023-10-04 01:05 | XMS_ITS | Encounter Summary ---
Author Organization [facility] Address [address] [place] [address] Care Team Providers Care Theater Set Production Designer Name Role Phone Tracey Butler RECYCLING CREW SUPERVISOR Primary Care Provider Valdo isaac Encounter Details Date Type Department Care Team (Latest Contact Info) Description 09/05/2008 14:30 EDT - 09/05/2008 23:59 EDT Hospital Encounter [facility] [phone] Unknown, Provider, Discharge Disposition: Home or Self Care Social History Tobacco Use Types Packs/Day Years Used Date Smoking Tobacco: Never Assessed Sex and Gender Information Value Date Recorded Sex Assigned at Female 05/26/2021 17:11 EDT Gender Identity Female 05/26/2021 17:11 EDT Sexual Orientation Not on file documented as of this encounter Discharge Disposition Disposition Code Departure Means Destination Home or Self Group Home documented in this encounter Plan of Treatment Not on file documented as of this encounter Visit Diagnoses Not on filedocumented in this encounter Care Teams Theater Set Production Designer Relationship Specialty Start Date End Date Tracey Butler RECYCLING CREW SUPERVISOR PCP - General 08/08/08 08/12/13 documented as of this encounter
--- OUTSIDE RECORDS SUMMARY | 2023-10-04 01:05 | XMS_ITS | Encounter Summary ---
Author Organization [facility] [place] [address] Care Team Providers Care Package Reinspector Name Role Phone Dina Diaz Primary Care Provider + Encounter Details Date Type Department Care Team (Late st Contact Info) Description 09/01/2022 Orders [place] [address] Karolina Jacobo PA [facility] [place] [address] Chest pain, unspecified type (Primary Dx) Social History Tobacco Use Types [...] as of this encounter Visit Diagnoses Diagnosis Chest pain, unspecified type- Primary documented in this encounter Care Teams Package Reinspector Relationship Specialty Start Date End Date Dina Diaz PA [address] [place] [id number] PCP - General Internal Medicine 05/26/20 documented as of this encounter
--- OUTSIDE RECORDS SUMMARY | 2023-10-04 01:05 | XMS_ITS | Encounter Summary ---
Author Organization [facility] Address [address] [place] [address] Care Team Providers Care Office Engineer Name Role Phone Tracey Butler ALMOND GRINDER Primary Care Provider Unavailelayne e Encounter Details Date Type Department Care Team (Late st Contact Info) Description 03/14/2008 Before PRISM Converted Visit (Maple) [facility] Adult Primary Care - [address] [phone] Unknown, Provider, Social History Tobacco Use Types [...] Procedure Name Priority Date/Time Associated Diagnosis Comments HEPATITIS C AB W REFLEX TO HCV RNA BY PCR Routine 03/14/2008 17:36 EST RHEUMATOID FACTOR Routine 03/14/2008 17: 36 EST ANTI NUCLEAR AB (SHERIDAN), IFA Routine 03/14/2008 17:36 EST T3 FREE Routine 03/14/2008 17:36 EST documented in this encounter Results * ANTI NUCLEAR ANTIBODY (03/14/2008 17:36 EST) Anti Nuclear Ab <40 0 - 40 Dils [facility] 03/14/2008 17:3 6 EST 03/14/2008 21:39 EST Provider Unknown IMMUNOLOGY AND SEROL OGY ORDERABLES Performing Organization Address [facility] Co de Phone Number [facility] [address] [place] [address] * RHEUMATOID FACTOR (03/14/2008 17:36 EST) Rheumatoid Factor <20 <20 IU/ml [facility] 03/14/2008 17:3 6 EST 03/14/2008 21:39 EST Provider Unknown CHEMISTRY & BLOOD GA S ORDERABLES Performing Organization Address [facility] de Phone Number [facility] [address] [place] [address] * HEPATITIS C ANTIBODY (03/14/2008 17:36 EST) Hepatitis C Ab Negative Reference Range: ??Negative [facility] 03/14/2008 17:3 6 EST 03/14/2008 21:39 EST Provider Unknown CHEMISTRY & BLOOD GA S ORDERABLES Performing Organization Address [facility] de Phone Number [facility] [address] [place] [address] * T3 FREE (03/14/2008 17:36 EST) T3, Free 3.2 2.3 - 4.2 pg/mL [facility] 03/14/2008 17:3 6 EST 03/14/2008 21:39 EST Provider Unknown CHEMISTRY & BLOOD GA S ORDERABLES Performing Organization Address [facility] Co de Phone Number [facility] [address] [place] [address] documented in this encounter Visit Diagnoses Not on filedocumented in this encounter Care Teams Office Engineer Relationship Specialty Start Date End Date Tracey Butler, ALMOND GRINDER PCP - General 08/08/08 08/12/13 documented as of this encounter
--- OUTSIDE RECORDS SUMMARY | 2023-10-04 01:05 | XMS_ITS | Encounter Summary ---
[place] [address] Care Team Providers Care Head Resident Name Role Phone Dina Diaz Primary Care Provider + Reason for Visit * Auth/Cert (Routine) Specialty Diagnoses / Procedures Referred By Contac t Referred To Contact Diagnoses Lumbar herniated disc HNP (herniated nucleus pulposus), lumbar Procedures ER OBSVO Hardy Gregorio MD [address] [place] [address] [facility] Referral ID Status Reason Start Date Expiration Date Visits Re quested Visits Authorized [id number] 1 1 Encounter Details Date Type Department Care Team (Late st Contact Info) Description 04/14/2022 7:45 AM EST Ancillary Procedure Radiology Xray at [facility] [address] [facility] [place] [address] Social History Tobacco Use Types Packs/Day Years [...] NO RAD <1HR - OR USE Routine 04/14/2022 8:31 AM EST documented in this encounter Results * XR Fluoro No Rad <1Hr - OR Use (04/14/2022 8:31 AM EST) Narrative Dicom, Auditing User - 04/14/2022 8:34 AM EST This exam is auto-finalizing. No interpretation was done. Hardy Gregorio MD IMG FLUORO ORDERABLE S documented in this encounter Visit Diagnoses Not on filedocumented in this encounter Care Teams Head Resident Relationship Specialty Start Date End Date Dina Diaz PA [address] [place] [address] [place] [address] PCP - General Internal Medicine 05/26/20 documented as of this encounter
--- OUTSIDE RECORDS SUMMARY | 2023-10-04 01:06 | XMS_ITS | Encounter Summary ---
[place] [address] Care Team Providers Care Technology Training Associate Name Role Phone Dina Diaz Primary Care Provider + Encounter Details Date Type Department Care Team (Late st Contact Info) Description 08/04/2021 Telephone Neurology at [address] [phone] [place] [address] Social History Tobacco Use Types Packs/Day Years Used Date Smoking Tobacco: Never Smokeless Tobacco: Never Alcohol Use Standard Drinks/Week Comments No 0 (1 standard drink = 0.6 oz pur e alcohol) Sex and Gender Information Value Date Recorded Sex Assigned at Female 09/09/2020 10:10 PM EDT Gender Identity Female 09/09/2020 10:10 PM EDT Sexual Orientation Straight 09/09/2020 10 :10 PM EDT documented as of this encounter Miscellaneous Notes * Telephone Encounter - Monique Isaac RN - 08/04/2021 8:58 AM EDT Called Ilan and left a message asking for a return phone call. * Telephone Encounter - Monique Isaac RN - 08/04/2021 8:49 AM EDT Copied from [facility] #[id number]. Topic: Specialty Dept CRMs - Generic Call >> Aug 04, 2021 8:33 AM Tianna Ward wrote: Specialist:Dr Summer Dempsey Relationship (if other than patient-full name): MOHIT Talavera for Peer to Peer Reason for Call: Ilan is calling to do a peer to peer review with provider for the [facility] medication for patient. Please call Ilan back to discuss documented in this encounter Plan of Treatment Not on file documented as of this encounter Visit Diagnoses Not on filedocumented in this encounter Care Teams Technology Training Associate Relationship Specialty Start Date End Date Dina Diaz PA [address] [place] [address] [place] [address] PCP - General Internal Medicine 05/26/20 documented as of this encounter
--- OUTSIDE RECORDS SUMMARY | 2023-10-04 01:06 | XMS_ITS | Encounter Summary ---
Author Organization [facility] [place] [address] Care Team Providers Care Manager Behavior Name Role Phone Dina Diaz Primary Care Provider + Encounter Details Date Type Department Care Team (Latest Contact Info) Description 02/03/2022 10:00 AM EST TH Visit (TeleHealth) Neurology at [address] [phone] Sanaz Aburto, RUBBER GOODS FINISHER [facility] [place] [address] Chronic migraine without aura, not intractable, without status migrainosus Social History Tobacco Use Types Packs/Day Years [...] PM EDT documented as of this encounter Patient Instructions * Patient Instructions* Sanaz Aburto APRN - 02/03/2022 10:00 AM EST Options for prevention: Make no changes currently Restart botox would need to commit to 3 rounds Consider Ajovy or Emgality-would need to commit to completing 6 months Contact me with what you would like to do. For acute treatment try hydroxyzine at low dose of 10mg at onset of migraine if you don't have any more Ubrelvy. documented in this encounter Progress Notes * Sanaz Aburto APRN - 02/03/2022 10:00 AM EST [facility] [place] [facility] - Follow up Appointment - TeleHealth Visit Over Face to Face Video System Emilee Abebe gave verbal consent over the face to face video system for their TeleHealth Visit. They understand that this visit will be billed to their insurance, similar to a clinic visit. They verify that they live within the [facility] where I hold licensure. Patient Location: [place], [place] Neurology Headache Clinic Follow-up Patient Name: Emilee Abebe Patient ID: Emilee Abebe is a 51 y.o. right handed female with a history of headaches since young adulthood. She has a PMH of Fibromyalgia, hypothyroidism, HLD, kidney disease, mild YAHIR, anxiety, vitamin ddeficiency, Bipolar disorder, PTSD and chronic migraine and MOH. Interval History: Stopped Aimovig because she was having migraines daily in November and didn't think the Aimovig was working. At previous visit in October she had 3 doses of Aimovig. In October she had a reductionof migraines from 90/90 and a disability score of 130. Today her disability score is 70. Switched from buproprion to vybriid 2 weeks ago. Stopped propranolol in November was only on it for 2 weeks prior to stopping. Ubrelvy works to decrease headache pain but does not completely abort. The patient is concerned regarding work and not being able to because of migraine. She has significant migraine burden. Midas prior to Aimovi, 09/05, 270 Patient Reported/Provider Adjusted: MIDAS ADJUSTED SCORE 02/03/2022 On how many days in the last three months did you have a headache? (If a headache lasted more than a day, count each day) 70 On a scale of 0 to 10, on average, how painful were those headaches? (0 = no pain at all and 10 = the worst pain you can imagine) 7 1. On how many days in the last three months did you miss work or school because of your headaches?8 2. How many days in the last three months was your productivity at work or school reduced by half or more because of your headaches? (Do not include days you counted in question 1 where you missed work or school) 45 3. On how many days in the last three months did you not do household work (such as housework, homerepairs and maintenance, shopping, caring for children and relatives) because of your headaches? 20 4. How many days in the last three months was your productivity related to household work reduced by half or more because of your headaches? (Do not include days you counted in question 3 where you did not do household work) 0 5. On how many days in the last three months did you miss family, social, or leisure activities because of your headaches? 6 MIDAS Adjusted Score 79 Medications: Current Outpatient Medications Medication Sig Dispense Refill ??? estradioL (ESTRACE) 0.01 % (0.1 mg/gram) Cream Place 1 g vaginally twice a week. 42.5 g 12 ??? ubrogepant (Ubrelvy) 100 mg Tablet Take 1 tablet by mouth as needed (Take at onset of migraine,can repeat dose in 2 hours. Max dose of 200 mg). 9 tablet 5 ??? prochlorperazine (Compazine) 5 mg Tablet Take 2 tablets by mouth every 8 hours as needed (For headache associated migraine, also for nausea/vomiting). 15 tablet 3 ??? Banophen 50 mg Capsule TAKE 1 CAPSULE BY MOUTH EVERY 6 TO 8 HOURS NEEDED ??? traZODone (Desyrel) 100 mg Tablet Take 100 mg by mouth nightly. ??? atorvastatin (Lipitor) 20 mg Tablet TAKE 1 TABLET BY MOUTH ONCE DAILY ??? EPINEPHrine (EPIPEN) 0.3 mg/0.3 mL (1:1,000) Auto-Injector Inject 0.3 mLs into the muscle once as needed. 1 each 1 No current facility-administered medications for this visit. Medications tried: Reduction/Prevention: Monoclonal Antibodies: Erenumab (Aimovig) GEPANTS: None Toxins: OnabotulinumtoxinA (Botox) 1 round only TCA: Amitriptyline (Elavil) Imipramine (Tofranil) Nortriptiline (Pamelor) Anti-seizure: Gabapentin (Neurontin) Lamotrigine (Lamictal) SSRI: Citalopram (Celexa) Escitalopram (Lexapro) Fluoxetine (Prozac) SNRI: Duloxetine (Cymbalta) Venlafaxine (Effexor) MAOI: None Beta Blockers: Bisoprolol (Zebeta) Propranolol (Inderal) Atypical Antidepressants: Bupropion (Wellbutrin) Mirtazapine (Remeron) Trazodone Calcium Channel Blockers: None Angiotensin II Receptor Blockers: None RAZIA Inhibitors: None Alpha-1 Blockers: None Diuretics: None Other Medications: None Procedures: None Supplements/Neutraceuticals: None Neuromodulation: None 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 Acute Treatments: Triptans: Rizatriptan (Maxalt) Sumatriptan (Imitrex) NSAIDS: Aspirin Ibuprofen (Advil) Naproxen sodium (Aleve) Gepants: Rimegepant (Nurtec) allergic rx Ditans: None Ergotamines: None Anti-emetics/neuroleptics: Prochlorperazine (compazine) Combination/Other Analgesics: Acetaminophen (tylenol) Anti-Histamines: Diphenhydramine (Benadryl) Hydroxyzine (Vistaril/Atarax) Muscle relaxers: Baclofen (lioresal) Cyclobenzaprine (flexeril) Steroids: None Opioids/Narcotics/Controlled Substances: Acetaminophen/Oxycodone (Percocet) Cannabis Oxycodone Benzodiazepines: None Physical Exam: No data found. General exam: The patient looked well and was in no acute distress. Dressed appropriately. The patient is alert, interactive, and has appropriate mood and congruent affect. The patient is able to recall the details of their medical history without difficulty. HEENT: Normocephalic, atraumatic. No rashes or other skin lesions noted on the head or face. Good active range of motion of the neck. Neurologic Examination: Mental status, Speech and Language: Normal in ordinary conversation. Cranial nerves: Pupils are equal and round. Extraocular movements are intact. No facial asymmetry or weakness. Tongue midline and moves normal. Motor Examination: No focal weakness. Coordination: No evidence of any ataxia. Please note that with a telehealth encounter a typical physical exam is not possible, and is an inherent limitation with this form of care delivery. Based on all considered variables it was felt thatthe benefits of a telehealth encounter would outweigh the risks of not being able to repeat the neurological examination. The patient previously had a normal general and neurological examination. Based on the information provided by the patient today there is nothing to suspect a new focal neurological deficit. TSH Vit D Vit B12 Diagnostic Tests and Imaging: Assessment and Plan: Emilee Abebe is a 51 y.o. right handed female with a history of headaches since young adulthood. She has a PMH of Fibromyalgia, hypothyroidism, HLD, kidney disease, mild YAHIR, anxiety, Bipolar disorder, PTSD and chronic migraine. Chronic migraine/MOH: The patient did not think that Aimovig was effective and she doesn't want to take a therapy that doesn't work for her. Because of the long half life of Aimovig she continues to have it in her system possibly helping with migraine prevention. According to the Midas questionaire she has had a decrease in her migraine disability since starting the Aimovig and a reduction of migraine days by 20-30/90days. We discussed the options including doing nothing and seeing if migraines improve, switching to either Ajovy or Emgality or restarting botox. She would need to give either the MAB 6 months totalto work or Botox a full 3 rounds. She has tried and failed all three categories of medication for migraine prevention and these are the options for chronic migraine currently. She will investigate and consider and will contact me through the portal with her decision. She could also try depakote or topiramate but either would have to be cleared by her psychiatric [employer]ER [employer] FINISHER. For acute treatment I will have her try a small dose of hydroxyzine. She will upload a new FMLA for and we can fill it out for 1-2 days per week for episodic leave. I will see the patient in 4 months time via telehealth. They can contact me through [facility] with any problems or concerns. I have spent 38 minutes in face to face time with this patient via telehealth, documentation and coordination of care. Sanaz Aburto, PLASTICS WORKER-[employer], RU[employer]ER [employer] FINISHER, [facility] Neurology, Headache Clinic documented in this encounter Plan of Treatment Not on file documented as of this encounter Visit Diagnoses Diagnosis Chronic migraine without aura, not intractable, without status migrainosus documented in this encounter Care Teams Manager Behavior Relationship Specialty Start Date End Date Dina Diaz PA [address] [place] [address] [place] [address] PCP - General Internal Medicine 05/26/20 documented as of this encounter
--- OUTSIDE RECORDS SUMMARY | 2023-10-04 01:06 | XMS_ITS | Encounter Summary ---
[place] [address] Care Team Providers Care Picu Nurse Name Role Phone Dina Diza Primary Care Provider + Encounter Details Date Type Department Care Team (Late st Contact Info) Description 07/07/2021 Telephone Neurology at [address] [phone] [place] [address] Social History Tobacco Use Types Packs/Day Years [...] encounter Miscellaneous Notes * Telephone Encounter - Toyin Cabezas RN - 07/07/2021 3:07 PM EDT Completed FMLA form faxed to Gustavo at [phone]. Copy to patient. Copy to Medical Records. documented in this encounter Plan of Treatment Not on file documented as of this encounter Visit Diagnoses Not on filedocumented in this encounter Care Teams Picu Nurse Relationship Specialty Start Date End Date Dina Diaz PA [address] [place] [address] [place] [address] PCP - General Internal Medicine 05/26/20 documented as of this encounter
--- OUTSIDE RECORDS SUMMARY | 2023-10-04 01:06 | XMS_ITS | Encounter Summary ---
Author Organization [facility] [place] [address] Care Team Providers Care Gauge Controller Name Role Phone Dina Diaz Primary Care Provider + Reason for Visit * Reason Onset Date Comments Appointment 08/16/2021 Encounter Details Date Type Department Care Team ([facility] st Contact Info) Description 08/16/2021 Telephone Neurology at [address] [phone] [place] [address] Appointment Social History Tobacco Use Types Packs/Day Years [...] encounter Miscellaneous Notes * Telephone Encounter - Ana Ivory - 08/16/2021 3:18 PM EDT Scheduling Instructions Provider: Any [facility] Visit Type: Transfer of Care (paste TONO Instructions or manually enter): Return in about 3 months (around 11/16/2021) for In Clinic. Appt Note: Transfer of Care (Former [facility] Patient)-3 month Additional Info Needed: documented in this encounter Plan of Treatment Not on file documented as of this encounter Visit Diagnoses Not on filedocumented in this encounter Care Teams Gauge Controller Relationship Specialty Start Date End Date Dina Diaz PA [address] [place] [address] [place] [address] PCP - General Internal Medicine 05/26/20 documented as of this encounter
--- OUTSIDE RECORDS SUMMARY | 2023-10-04 01:06 | XMS_ITS | Encounter Summary ---
Author Organization [facility] [place] [address] Care Team Providers Care Drink Box Mechanic Name Role Phone Dina Diaz Primary Care Provider + Reason for Visit * Reason Comments Back Pain * Auth/Cert (Routine) Specialty Diagnoses / Procedures Referred By John t Referred To Contact Diagnoses Lumbar herniated disc HNP (herniated nucleus pulposus), lumbar Procedures ER OBSVO Hardy Gregorio MD [address] [place] [place] [address] [facility] Referral ID Status Reason Start Date Expiration Date Visits Re quested Visits Authorized [id number] 1 1 Encounter Details Date Type Department Care Team (Late st Contact Info) Description 04/14/2022 7:30 AM EST - 04/14/2022 10:30 AM EST Surgery Operating Room Renea [facility] [address] [place] [address] Hardy Gregorio MD [address] [place] [address] LAMINECTOMY,FACETECTOM Y & FORAMINOTOMY,LUMBAR,ON E LEVEL,CARLOS (WRVU 15.37) Social History Tobacco Use Types Packs/Day Years [...] Sign Reading Time Taken Comments Blood Pressure 124/85 04/14/2022 9:45 AM EST Pulse 88 04/14/2022 9:45 AM EST Temperature 36.2 ??C (97.2 ??F) 04/14/2022 8:45 AM ES T Respiratory Rate 16 04/14/2022 9:45 AM EST Oxygen Saturation 96% 04/14/2022 9:45 AM EST Inhaled Oxygen Concentration - - Weight 59.9 kg (132 lb) 04/13/2022 6:57 PM EST Height 165.1 cm (5' 5) 04/13/2022 6:57 PM EST Body Mass Index 21.97 04/13/2022 6:57 PM EST documented in this encounter Discharge Instructions * Patient Instructions* Phylicia Brown PA - 04/14/2022 6:53 AM EST Full recovery will depend on your having a strong, positive attitude, setting small goals for improvement and working steadily to accomplish each goal. FOLLOW UP APPOINTMENTS: You will be scheduled for a follow-up appointment four to six weeks after surgery with a Physician???s Personnel Coordinator at the surgeon???s office. You will have [...] when to stop taking it. Only take [id number] or prescription medicine for pain, discomfort or [...] If you have any questions, please call [facility] at [phone], during business hours of Monday through Monday from 8:00 a.m. until 4:00 p.m. In case of emergency during non-business hours, please call the same main number and follow the prompts to page the neurosurgeon cardiac/vascular sonographer. SMOKING CESSATION INFORMATION: PR QUITLINE: [place] QUITLINE: www.quitnet.com If you smoke, stop now! Smoking may impede healing. MAKE SURE YOU: Understand these instructions. Will seek medical care if you are feeling poor, or get worse. Will call the surgeon???s office with any questions or concerns at : [phone] Nursing information only: Original document to medical records Copy given to patient at discharge Belongings/Valuables returned to patient All questions answered IV and hospital equipment removed from patient as appropriate The above information has been presented or demonstrated. I/we have had the opportunity to ask questions. I/we fully understand the instructions given. I/we have received a copy of this form. Continue Tramadol if you pain surrounding your incision. documented in this encounter Medications at Time of Discharge Medication Sig Dispensed Refills Start Date End Date Qulipta 60 mg Tablet Take 1 tablet by mouth daily. 04/08/2022 azelastine (ASTELIN) 137 mcg (0.1 %) Aerosol, [place]ield Every 12 hours. 03/17/2020 baclofen (Lioresal) 10 [...] 02/03/2022 estradioL (ESTRACE) 0.01 % (0.1 mg/gram) CreamIndications:Dyspa reunia, female Place 1 g vaginally twice a week. 42.5 g 12 11/25/2021 prochlorperazine (Compazine) 5 mg Tablet Take 2 tablets by mouth every 8 hours as needed (For headache associated migraine, also for nausea/vomiting). 15 tablet 3 06/29/2021 atorvastatin (Lipitor) 20 mg Tablet TAKE 1 TABLET BY MOUTH ONCE DAILY 07/01/2020 EPINEPHrine (EPIPEN) 0.3 mg/0.3 mL (1:1,000) Auto-InjectorIndicatio ns:Allergic rhinitis, unspecified allergic rhinitis type Inject 0.3 mLs into the muscle once as needed. 1 each 1 01/08/2015 baclofen (Lioresal) 10 mg Tablet 01/01/2022 09/12/2022 cyclobenzaprine (Flexeril) 5 mg Tablet See Instructions, Take 1-2 tablets every 8 hours as needed for muscle spasm, # 30 tab, 0 Refill(s), Pharmacy: [id number], 165, cm, 08/14/21 10:33:00 EDT, Height/Length Dosing, 56, kg, 08/14/21 10:33:00 EDT, Weight Dosing 01/11/2022 07/25/2023 EPINEPHrine 0.3 mg/0.3 mL Auto-Injector See Admin Instructions. 09/12/2022 erenumab-aooe (Aimovig Autoinjector) 140 mg/mL Auto-Injector 07/25/19 24 B2-magnesium cit,oxid-feverfew 200-180-50 mg Tablet every 24 [...] 05/06/2020 07/25/2023 documented as of this encounter Progress Notes * Donte Bashir RN - 04/14/2022 10:03 AM EST Uneventful PACU recovery. Patient discharged from PACU to home. See flowsheets/MAR for details. Pain controlled and patient states back pain at 2/10, very tolerable, tolerating PO intake, denies any N/V. Discharge instructions reviewed with patient and (Preet), all questions answered and verbalized understanding. IV removed and assisted to personal vehicle via wheelchair. documented in this encounter H&P Notes * Zeke Bob PA - 04/13/2022 9:18 PM EST Emilee Abebe is an 51 y.o. female who presents to the emergency room [facility] for evaluation of worsening symptoms today related to a recent diagnosis of a herniated lumbar disc. Her symptoms started on February 18, 2022 when she was injured at work moving a pallet. She developed pain going down her left leg. She has no history of spinal surgery. She was seen by [facility] neurosurgery in our office on April 07, 2022. She had mentioned that she had some mild degree of urinary leakage for the week or so before she was seen in the office but did not have any right leg symptoms or saddle paresthesia. Her MRI was reviewed and she was found to have a large L4-5 herniated disc. Microsurgical discectomy was recommended and booked however was not approved by insurance to this point. Today Emilee tells me that she seems to have increased pain in her left leg. She still denies any pain in her right leg. She has a very slight amount of numbness in the perineal area. She has not had any loss of control of her bowels. She says that she still realizes when she needs to go urinate and is able to get to the bathroom and enough time without any leakage but notes that today she is unable to feel the stream while she is urinating. She contacted the office was advised to come to the emergency room for evaluation and consideration of urgent surgical intervention. Past Medical History: Diagnosis Date ??? Allergic [...] disorder) ??? Thyroid disorder ??? Vision abnormalities Allergies: Allergies Allergen Reactions ??? Latex Other reaction(s): Unknown ??? Abilify [Aripiprazole] Other (See Comments) hallucinations ??? Nurtec Odt [Rimegepant] Rash ??? Shellfish Derived Anaphylaxis ??? Diltiazem Other (See Comments) Chest pain ??? Morphine Sulfate Nausea And Vomiting ??? Amitriptyline Hcl ??? Armodafinil Other (See Comments) Excessive runny nose and hard to swallow. ??? Hydrocodone ??? Imipramine ??? Metoprolol Other (See Comments) Other reaction(s): Depression depression ??? Oxycodone Hcl ??? Soy ??? Tree Nuts Review of Systems Constitutional: Negative for chills and fever. HENT: Negative for sore throat. Eyes: Negative for blurred vision. Respiratory: Negative for cough and shortness of breath. Cardiovascular: Negative for chest pain and palpitations. Gastrointestinal: Negative for abdominal pain, nausea and vomiting. Genitourinary: Negative for dysuria. Musculoskeletal: Positive for back pain. Negative for neck pain. Skin: Negative for rash. Neurological: Positive for sensory change (left leg numbness and slight numbness in perineal). Negative for headaches. Principal Problem: Lumbar herniated disc Active Problems: HNP (herniated nucleus pulposus), lumbar Blood pressure 116/78, pulse (!) 116, temperature 37.4 ??C (99.3 ??F), resp. rate 20, height 165.1 cm (5' 5), weight 59.9 kg (132 lb), SpO2 97 %. Physical Exam Vitals reviewed. Constitutional: General: She is in acute distress. Appearance: Normal appearance. HENT: Head: Normocephalic and atraumatic. Nose: Nose normal. No congestion. Mouth/Throat: Mouth: Mucous membranes are moist. Pharynx: Oropharynx is clear. No oropharyngeal exudate. Eyes: Conjunctiva/sclera: Conjunctivae normal. Cardiovascular: Rate and Rhythm: Regular rhythm. Tachycardia present. Pulses: Normal pulses. Heart sounds: No murmur heard. Pulmonary: Effort: Pulmonary effort is normal. No respiratory distress. Breath sounds: No wheezing or rhonchi. Abdominal: General: Abdomen is flat. Tenderness: There is no abdominal tenderness. There is no right CVA tenderness or guarding. Musculoskeletal: General: Normal range of motion. Cervical back: Normal range of motion. Skin: General: Skin is warm. Neurological: General: No focal deficit present. Mental Status: She is alert and oriented to person, place, and time. Motor: Weakness present. Gait: Abnormal gait: left leg extension secondary to pain. Deep Tendon Reflexes: Reflexes normal. Psychiatric: Mood and Affect: Mood normal. Behavior: Behavior normal. rectal: normal tone PVR 20 Imaging: Lumbar spine MRI of 03/28/22 demonstrates a large L4-5 disc herniation compressing on the left and central areas. Assessment: Left L45 HNP Plan:Admit for pain control overnight To OR in the am NPO overnight Pre op labs and meds THANIA Guadarrama 04/13/2022 documented in this encounter ED Notes * Ivy Queen RN - 04/14/2022 7:23 AM EST PT to OR with anesthesia and LINDA Anne. * Sharron Grijalva RN - 04/14/2022 7:16 AM EST Pt was seen by anesthesiology and surgeon for consent. Pt currently being seen by OR nursing reportgiven to [place] and OR staff. * Sharron Grijalva RN - 04/14/2022 4:14 AM EST Pt started to fall asleep and had another drop in her oxygen to 85%. Pt placed on oxygen via NC at 2LPM with improvement to 98% * Sharron Grijalva RN - 04/14/2022 3:56 AM EST Pt sts she is having mid back pain radiating to front sts pn / denies n/v. Upon palpation of back pt had pain and upon palp to anterior chest, pt placed on cardiac monitoring NSR (HR down from 108to 89) in Lead III. Pt had episode with oxygen level dropping to 85, pt took deep breaths with return to 98% in under 30 seconds. A * Sharron Grijalva RN - 04/14/2022 2:51 AM EST Message left with neurosurgical service regarding pt's BP A * Sharron Grijalva RN - 04/14/2022 2:42 AM EST Pt's BP was low upon waking, with gradual improvement. Pt's HR and Temp WNL. Prior to escort to bathroom pt sat up slowly no dizziness with sitting position but felt a little dizzy standing and walking (pt wanted to attempt going to bathroom) to bathroom. Pt's gait unchanged. Pt sts she knew she need to urinate due to small leakage of urine she was unable to feel pressure in RLR position. Pt returned to room BP improved. A * Elton Kwok MD - 04/13/2022 11:14 PM EST ED Attending Note HPI: Emilee Abebe is a 51 y.o. female who presents to the Emergency Department with a history of known MRI proven large herniated disc of the lumbar spine for which she has been evaluated by Dr. Mena with neurology -with the plan for surgical intervention tomorrow. She was seen in an outside emergency department yesterday with acute exacerbation of pain after which she was symptomatically treated and discharged and presents here with the same. ROS as per HPI Vitals: ED Triage Vitals [04/13/22 1857] BP: 116/78 Heart Rate: (!) 116 Resp: 20 Temp: 37.4 ??C (99.3 ??F) Temp src: n/a SpO2: 97 % O2 Device: RA O2 Flow Rate (L/min): n/a Physical Exam Constitutional: Appearance: No acute distress, calm, cooperative HENT: Head: Normocephalic and atraumatic. MMM Neck: Normal range of motion. Neck supple. Musculoskeletal: General: Normal range of motion. No edema noted Skin: General: Skin is warm and dry. Capillary refill < 2 seconds; no rash noted Neurological: Speech is fluent. No obvious focal neurologic deficit Motor: LLE with mild weakness and antalgic gain due to pain with left leg extension Psychiatric: Patient has a normal mood and affect. ED Course: I have reviewed labs and imaging, images and available reports, and they are significant for: ED EKG interpreted by me reveals normal sinus rhythm at a rate of [address] segment elevation or depression. No orders to display Assessment and Plan: 51 y.o. female known to the neurosurgical practice with the plan for surgical decompression of a lumbar spine disc herniation who was seen in acute exacerbation of pain yesterday and treated symptomatically in the emergency department today presenting for the same. No red flags for acute spinal comp ression. I initiated pain control and patient was evaluated nearly immediately upon arrival by Zeke Bob -from the neurology practice including evaluation of postvoid residual which was less than 20 and rectal tone which was intact therefore no acute spinal compression. Patient was treated with Dilaudid IV with some improvement of her pain Additional imaging was deferred given that the patient has a known MRI and plan for surgery tomorrow Did this case involve critical care? No Patient was admitted to the neurology service for further care and operative treatment tomorrow. NPO at midnight. 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 documented in this encounter Miscellaneous Notes * Op Note - Hardy Gregorio MD - 04/14/2022 7:44 AM EST [facility] Operative Note [facility] [address] [place] [address] Patient Name: mEilee Abebe : [id number] MR#: [id number] Case Date: 04/14/2022 Case Scheduled Time: 729 Surgeon: Surgeon(s) and Role: * Hardy Gregorio MD - Primary * Phylicia Brown PA - Physician Personnel Coordinator Preoperative diagnosis: SPONDYLOSIS, STENOSIS, HNP Postoperative diagnosis: SPONDYLOSIS, STENOSIS, HNP Actual procedure: Left L4-5 hemilaminectomy medial facetectomy and microsurgical discectomy. Use the high-powered operative microscope. Intraoperative fluoroscopy. Anesthesia: General Estimated Blood Loss: [...] Specimen details pertinent to this patient.) Findings: An absolutely enormous multifragmented disc herniation was identified and resected at this level. We were able to affect bilateral decompression here without any difficulty. We entered the disc space and debulked of any readily available material that seemed at high risk for reherniation.Correct level confirmed at multiple points throughout the surgery with intraoperative fluoroscopy and of course the intraoperative findings. No complications or problems. No csf. No unusual bleeding.No motor discharges. Sponge and needle counts correct. Surgical Indications: Emilee Abebe is a 51 y.o. year old female who is suffering from early cauda equina syndrome. She was seen in the office recently with severe left leg pain and some early urinary complaints. We will try to get her on the OR schedule for yesterday for an elective decompression. However this was a Worker's Compensation event and they would not approve the surgery without additional treatment options having been exhausted. Her conventional insurance is through [employer] and they told her that our facility was out of network and that she would need to go to [place] to have her surgery. As she was mulling over her options she began to develop urinary leakage and saddle numbness. She called in yesterday with these new complaints. We asked her to come to the emergency room for immediate evaluation. Her postvoid residual was 20 cc but she had new saddle numbness. We put her on the OR schedule for this morning. Please refer to my office notes for details of presentation, findings on exam, and medical decision making. she has requested that we consider surgical treatment of this condition. Pros and cons, rationale and risks, options and alternatives have been thoroughly reviewed. The patient acknowledges the extensive list of risk of this surgery as explainedin no uncertain terms. The patient acknowledges that [...] we proceed with operation. Procedure Description: Emilee Abebe was brought into the operating room. she underwent induction of a general endotracheal anesthetic, positioned prone and padded appropriately. The back was then prepped and draped in usual sterile fashion. We paused to confirm the patient's name and identifying information, site and type of surgery to be performed, presence of films if needed, availabilityof all anticipated necessary equipment and implants, administration of antibiotics and discussion of all other data relevant and required by the preoperative check-list. Once this had all been confirmed, we proceeded to localize the operative level fluoroscopically. Incision was made in the midline to allow access to the operative level. Dissection of the subcutaneous tissues was carried out using the monopolar electrocautery. A self retaining retractor was inserted. We opened the lumbar fasciain the midline, preserving the interspinous ligament. We then elevated the paraspinal musculature on the left side at the L 4/5 level. This was done in the subpereosteal plane. A Davila retractorwas utilized to maintain our exposure. We confirmed our level again with the fluoroscope. We brought in the high-powered operative microscope. Hemilaminotomy was performed along with a limited medialfacetectomy. The ligamentum flavum was opened and removed in piecemeal fashion. Under the microscope, we were able to mobilize the thecal sac and nerve root, thereby exposing the disc herniation. Thedisc material was removed and the nerve root and thecal sac sufficiently decompressed. We then entered the disc space and debulked it of any readily available material. The hiatus was midline and so we created a separate entrance left lateral. We were able to decompress the canal bilaterally. Usinga long ball dissector we could feel the medial aspect of the L5 pedicle contralaterally as well as the inferior aspect of the L4 pedicle contralaterally. There were no impediments anterior to the thecal sac by the time our decompression had been completed. Given the excellent decompression and the return of normal positioning of the thecal sac and L5 nerve root we felt that there was no need for contralateral decompression at this time. Please see the Findings section for additional [...] crystal clear. Fentanyl epidural anesthetic was instilled. The lumbar fascia was reapproximated with interrupted 2-0 Vicryl sutures. The subcutaneous tissues were closed with inverted 2-0 Vicryl sutures. The subcuticular layer was closed with inverted 3-0 Vicryl sutures. The skin edges were approximated with Dermabond, Benzoin and paper tape. The patient was then allowed to awaken from anesthetic and transferred to the post-anesthesia care unit in stable condition. Infection Bundle used? N/A Phylicia Brown PA-C worked under my direction for the duration of the operative session. The neurosurgical physician assistant adequately prepped the operative site and maintained the best possible exposure of anatomy incident to the procedure. Hardy Gregorio MD 04/14/2022 * ED Triage - Sharron Grijalva RN - 04/13/2022 7:22 PM EST HPI (Adult) Stated Reason for Visit: pt sts she has back pain for 2 months it was more painful yesterday and now is able to feel need to urinate but does not feel herself urinating. Pt has shuffling gait appearsto be in significant discomfort. Pt sts no BM 2 days, normal BM with normal sensation 2 days ago. All issues began yesterday History Obtained From: patient Duration (Weeks): 8 Pt walking with wide foot stance to room, pt sts radiation down L leg. documented in this encounter Plan of Treatment Not on file documented as of this encounter Procedures Procedure Name Priority Date/Time Associated Diagnosis Comments XR FLUORO NO RAD <1HR - OR USE Routine 04/14/2022 8:31 AM EST Laminec/Facetect/Cassia in, Lumbar 1 Seg (53009) Yes 04/14/2022 7:24 AM EST SPONDYLOSIS, STENOSIS, HNP HEMOGRAM STAT 04/13/2022 9:34 PM EST DIFFERENTIAL, AUTOMATED STAT 04/13/2022 9:34 PM EST HC CBC,PLT & AUTO DIFF STAT 9:34 PM EST COMPREHENSIVE METABOLIC PANEL STAT 04/13/2022 9:34 PM EST EKG 12-LEAD STAT 04/13/2022 8:43 PM EST URINALYSIS WITH REFLEX CULTURE STAT 04/13/2022 8:43 PM EST documented in this encounter Results * XR Fluoro No Rad <1Hr - OR Use (04/14/2022 8:31 AM EST) Narrative Dicom, Auditing User - 04/14/2022 8:34 AM EST This exam is auto-finalizing. No interpretation was done. Hardy Gregorio MD IMG FLUORO ORDERABLE S * Differential, Automated (04/13/2022 9:34 PM EST) Neutrophil % 54.1 % [facility] Neutrophil Absolute 3.63 1.70 - 6.10 x10(3)/[facility] Lymph % 35.9 % [facility] Lymphocytes Abs 2.4 0.9 - 3.2 x10(3)/[facility] Monocyte % 6.8 % [facility] Monocyte Abs 0.5 0.3 - 0.9 x10(3)/[facility] Eos % 2.7 % [facility] Eosinophils Abs 0.2 0.0 - 0.4 x10(3)/[facility] Basophil % 0.4 % [facility] Baso Absolute 0.0 0.0 - 0.1 x10(3)/[facility] Immature Gran % 0.10 % [facility] Comment: Immature granulocytes(IG's)percentage and absolute count will include metamyelocytes, myelocytes, and promyelocytes. Blood smears from CBCs yielding IG's will be scanned manually for concordance. If this scan disagrees with the automated IG or if promyelocytes are noted, a manual differential will be performed. Immature Gran Absolute 0.01 0.00 - 0.04 x10(3)/[facility] Blood 04/13/2022 9:34 PM EST 04/13/2022 9:34 PM EST Narrative Resulting Agency Comment Spec In Lab Elton Kwok MD HEMATOLOGY ORDERABLE S [facility] [address] [place] [address] * Hemogram (04/13/2022 9:34 PM EST) White Blood Cell 6.7 4.0 - 9.5 x10(3)/[facility] Red Blood Cell 4.88 4.00 - 5.21 x10(6)/[facility] Hemoglobin 14.5 11.7 - 15.5 g/dL [facility] Hematocrit 44.9 35.7 - 45.8 % [facility] Mean Cell Volume 92.0 82.6 - 94.4 fL [facility] Mean Cell Hemoglobin 29.7 27.1 - 32.0 pg [facility] Mean Cell Hemoglobin Concentration 32.3 31.7 - 35.0 g/dL [facility] Platelet 286 145 - 357 x10(3)/mcL [facility] RDW Standard Deviation 43.5 37.0 - 46.0 fL [facility] RDW coefficient of variation 12.7 11.5 - 14.1 % [facility] Mean Platelet Volume 8.3 7.6 - 12.9 fL [facility] Blood 04/13/2022 9:34 PM EST 04/13/2022 9:34 PM EST Narrative Resulting Agency Comment Spec In Lab Elton Kwok MD HEMATOLOGY ORDERABLE S [facility] [address] [employer] [address] * (ABNORMAL) Comprehensive metabolic panel (non-fasting) (04/13/2022 9:34 PM EST) Pathologist [facility] Glucose 102 65 - 199 mg/dL [facility] Comment:Diabetes: >=200 mg/d L plus symptoms Blood Urea Nitrogen 17 8 - 18 mg/dL [facility] Creatinine 0.62(L) 0.70 - 1.20 mg/dL [facility] Sodium 139 135 - 145 mmol/L [facility] Potassium 3.9 3.5 - 5.0 mmol/L [facility] Comment: Please note: ??Patients with WBC >100,000 may have falsely elevated Potassium levels. ??For accurate Potassium quantification in these patients send serum separator tube (gold top) for subsequent determinations. ??Contact the Clinical Chemistry Laboratory if there are any questions. Chloride 100 98 - 107 mmol/L [facility] Carbon Dioxide 27 22 - 31 mmol/L [facility] Anion Gap 12 5 - 15 mmol/L [facility] Calcium 9.8 8.5 - 10.5 mg/dL [facility] Protein, Total 7.1 6.1 - 8.0 g/dL [facility] Albumin 4.5 3.2 - 5.2 g/dL [facility] Aspartate Aminotransferase 18 0 - 30 unit/L [facility] Alanine Aminotransferase 19 0 - 30 unit/L [facility] Alkaline Phosphatase 71 35 - 105 unit/L [facility] Bilirubin, Total 0.3 0.2 - 1.3 mg/dL [facility] Est Glomerular Filtration Rate 108 >=60 mL/min/1. 73 m?? [facility] Comment: This patient's estimated GFR was calculated [...] and symptoms in addition to eGFR. Blood 04/13/2022 9:34 PM EST 04/13/2022 9:34 PM EST Narrative Resulting Agency Comment Spec In Lab Elton Kwok MD CHEMISTRY ORDERABLES Performing Organization Address City/[facility]/ZIP Co de Phone Number [facility] [address] [place] [address] * EKG 12 Lead (04/13/2022 8:43 PM EST) Ventricular rate 83 BPM MUSE SYSTEM Atrial Rate 83 BPM MUSE SYSTEM P-R Interval 126 ms MUSE SYSTEM QRS Duration 86 ms MUSE SYSTEM Q-T Interval 372 ms MUSE SYSTEM QTC Calculated (Bezet) 437 ms MUSE SYSTEM Calculated P [place] 76 degrees MUSE SYSTEM Calculated R [place] 82 degrees MUSE SYSTEM Calculated T [place] 58 degrees MUSE SYSTEM INTERPRETATION Normal sinus rhythm Possible Left atrial enlargement RSR' or QR pattern in V1 suggests right ventricular conduction delay Borderline ECG No previous ECGs available Confirmed by MD Sherif, Tisha ([id number]) on 04/14/2022 8:22:50 AM MUSE SYSTEM 04/13/2022 8:43 PM EST 04/14/2022 8:22 AM EST Elton Kwok MD ECG ORDERABLES Performing Organization Address City/[facility]/ZIP Co de Phone Number MUSE SYSTEM * Urinalysis with reflex Culture (04/13/2022 8:43 PM EST) Glucose, Urine Dipstick Negative Negative mg/dL [facility] Protein, Urine Dipstick Negative Negative mg/dL [facility] Bilirubin, Urine Dipstick Negative Negative mg/dL [facility] Comment: Clinical correlation required for positive Urine Bilirubin results as false positive may occur with some drugs and drug related products. If a false positive is suspected a serum total bilirubin should be considered if clinically indicated. Urobilinogen, Urine Dipstick Normal Normal mg/dL [facility] pH, Urn (dipstick) 7.0 5.0 - 8.0 [facility] Blood, Urine Dipstick Negative Negative mg/dL [facility] Ketone, Urine Dipstick Negative Negative mg/dL [facility] Nitrite, Urine Dipstick Negative Negative [facility] Leukocytes, Urine Dipstick Negative Negative mcL [facility] Appearance, Urine Dipstick Clear Clear [facility] Specific [place] Urine Automated 1.015 1.006 - 1.030 [facility] Color, Urine Dipstick Yellow [facility] Reflex to Culture No [facility] Clean Catch Urine 04/13/2022 8:43 PM EST 04/13/2022 9:34 PM EST Narrative Resulting Agency Comment Spec In Lab Elton Kwok MD URINE ORDERABLES [facility] [address] [place] [address] documented in this encounter Visit Diagnoses Not on filedocumented in this encounter Admitting Diagnoses Diagnosis Lumbar herniated disc Displacement of lumbar intervertebral disc without myelopathy HNP (herniated nucleus pulposus), lumbar Displacement of lumbar intervertebral disc without myelopathy documented in this encounter Administered Medications Inactive Administered Medications - up to 3 most recent administrations Medication Order MAR Action Action Date Dose Rate Site BUpivacaine (pf) (Marcaine) (5 mg/mL) 0.5% injection ONCE PRN, Starting on Adele 04/14/22 at 0835, Until Adele 04/14/22 at 1008, Intra-Operative (Intra-Procedure), Routine Given 04/14/2022 8:35 AM EST 30 mLs 19- Surgical Site ceFAZolin (Ancef) 2 g vial attach to sodium chloride 0.9% 100 mL Mini-Bag Plus 2 g, Intravenous, 30 MIN PRE-OP, 1 dose, On Adele 04/14/22 at 0705, Administer over 30 Minutes, Indication for (Active or Suspected): Prophylaxis New Bag 04/14/2022 7:21 AM EST 2 g 200 mL/hr dexAMETHasone (PF) (Decadron) (10 mg/mL) injection 10 mg 10 mg, Intravenous, ONCE, 1 dose, On Mon04/13/22 at 2039, Routine Given 04/13/2022 9:06 PM EST 10 mg diazePAM (Valium) tablet 5 mg 5 mg, Oral, EVERY 6 HOURS PRN, Starting on Mon04/13/22 at 2113, Until Adele 04/14/22 at 1210, Anxiety, Sleep, Agitation, muscle spasm, Routine Given 04/14/2022 4:06 AM EST 5 mg Given 04/13/2022 10:45 PM EST 5 mg HYDROmorphone (Dilaudid) (1 mg/mL) injection syringe 0.2-0.4 mg 0.2-0.4 mg, Intravenous, EVERY 5 MIN PRN, Starting on Adele 04/14/22 at 0831, Until Adele 04/14/22 at 1002, Pain, Give 0.2 mg every 5 minutes PRN for mild to moderate pain (1-5) Give 0.4 mg every 5 minutes PRN for moderate to severe pain (6-10). Hold for respiratory rate less than 10 per minute. Maximum dose 4 mg over one hour. If multiple pain medications are ordered, start with HYDROmorphone or morphine and use fentaNYL for breakthrough pain., PACU Recovery, Routine Given 04/14/2022 9:15 AM EST 0.4 mg HYDROmorphone (Dilaudid) (2 mg/mL) injection solution 1 mg 1 mg, Intravenous, ONCE, 1 dose, On Mon04/13/22 at 2039, STAT Given 04/13/2022 9:06 PM EST 1 mg HYDROmorphone (Dilaudid) (2 mg/mL) injection solution 1 mg 1 mg, Intravenous, EVERY 3 HOURS PRN, Starting on Mon04/13/22 at 2136, Until Adele 04/14/22 at 1210, Pain Given 04/14/2022 3:19 AM EST 1 mg Given 04/14/2022 12:26 AM EST 1 mg melatonin tablet 3 mg 3 mg, Oral, NIGHTLY, First dose on Mon04/13/22 at 2116, Until Discontinued, Routine ondansetron (pf) (Zofran) (2 mg/mL) injection 4 mg 4 mg, Intravenous, EVERY 4 HOURS PRN, Starting on Mon04/13/22 at 2113, Until Adele 04/14/22 at 1210, Nausea, Vomiting, Routine sodium chloride 0.9 % (flush) (BD PosiFlush Normal Saline 0.9) flush 3 mL 3 mL, Intravenous, EVERY 1 MIN PRN, Starting on Mon04/13/22 at 203, Until Adele 04/14/22 at 1210, for flushes pre / post IV fluids or blood draws as needed, Routine sodium chloride 0.9% infusion 100 mL/hr, Intravenous, CONTINUOUS, Starting on Mon04/13/22 at 2115, Until Adele 04/14/22 at 1210 New Bag 04/14/2022 12:27 AM EST 100 mL/hr 100 mL/hr traZODone (Desyrel) tablet 50 mg 50 mg, Oral, NIGHTLY, First dose on Mon04/13/22 at 211, Until Discontinued, Routine documented in this encounter Active and Recently Administered Medications Times are shown in EST. Scheduled Medication Order 04/12/2022 04/13/2022 04/14/2022 ceFAZolin (Ancef) 2 g vial attach to sodium chloride 0.9% 100 mL Mini-Bag Plus (COMPLETED) 2 g, Intravenous, 30 MIN PRE-OP, 1 dose, On Adele 04/14/22 at 0705, Administer over 30 Minutes, Indication for (Active or Suspected): Prophylaxis 0721 (New Bag - Provider: Ivy Queen RN - Comment: Given sol anesthesia Matsophia for administration)0751 (Due: Stopped - Provider: Ivy Queen RN) dexAMETHasone (PF) (Decadron) (10 mg/mL) injection 10 mg (COMPLETED) 10 mg, Intravenous, ONCE, 1 dose, On Mon04/13/22 at 203, Routine 210 (Given - Provider: Sharron Grijalva RN) HYDROmorphone (Dilaudid) (2 mg/mL) injection solution 1 mg (COMPLETED) 1 mg, Intravenous, ONCE, 1 dose, On Mon04/13/22 at 2039, STAT 2105 (Given - Provider: Sharron Grijalva RN) melatonin tablet 3 mg 3 mg, Oral, NIGHTLY, First dose on Mon04/13/22 at 211, Until Discontinued, Routine 2115 (Hold - Provider: Sharron Grijalva RN - Reason: Patient/family refused) 0739 ([facility] Hold - Provider: Admin Adt - Reason: Transfer to a Procedural area)1210 ([facility] Unhold - Provider: Automatic Discharge Provider) traZODone (Desyrel) tablet 50 mg 50 mg, Oral, NIGHTLY, First dose on Mon04/13/22 at 2116, Until Discontinued, Routine 2115 (Hold - Provider: Sharron Grijalva RN - Reason: Patient/family refused) 0739 ([facility] Hold - Provider: Admin Adt - Reason: Transfer to a Procedural area)1210 ([facility] Unhold - Provider: Automatic Discharge Provider) Continuous Medication Order 04/12/2022 04/13/2022 04/14/2022 sodium chloride 0.9% infusion 100 mL/hr, Intravenous, CONTINUOUS, Starting on Mon04/13/22 at 2116, Until Adele 04/14/22 at 1210 0027 (New Bag - Prov ider: Sharron Grijalva RN)0739 ([facility] Hold - Provider: Admin Adt - Reason: Transfer to a Procedural area)1210 ([facility] Unhold - Provider: Automatic Discharge Provider) PRN Medication Order 04/12/2022 04/13/2022 04/14/2022 BUpivacaine (pf) (Marcaine) (5 mg/mL) 0.5% injection (CANCELED) ONCE PRN, Starting on Adele 04/14/22 at 0835, Until Adele 04/14/22 at 1008, Intra-Operative (Intra-Procedure), Routine 0835 (Given - Provid er: Hardy Gregorio MD) diazePAM (Valium) tablet 5 mg 5 mg, Oral, EVERY 6 HOURS PRN, Starting on Mon04/13/22 at 2113, Until Adele 04/14/22 at 1210, Anxiety, Sleep, Agitation, muscle spasm, Routine 2245 (Given - Provider: Sharron Grijalva RN) 0406 (Given - Provider: Sharron Grijalva RN)0739 ([facility] Hold - Provider: Admin Adt - Reason: Transfer to a Procedural area)1210 ([facility] Unhold - Provider: Automatic Discharge Provider) HYDROmorphone (Dilaudid) (1 mg/mL) injection syringe 0.2-0.4 mg (CANCELED) 0.2-0.4 mg, Intravenous, EVERY 5 MIN PRN, Starting on Adele 04/14/22 at 0831, Until Adele 04/14/22 at 1002, Pain, Give 0.2 mg every 5 minutes PRN for mild to moderate pain (1-5) Give 0.4 mg every 5 minutes PRN for moderate to severe pain (6-10). Hold for respiratory rate less than 10 per minute. Maximum dose 4 mg over one hour. If multiple pain medications are ordered, start with HYDROmorphone or morphine and use fentaNYL for breakthrough pain., PACU Recovery, Routine 0915 (Given - Provid er: Donte Joshua RN) HYDROmorphone (Dilaudid) (2 mg/mL) injection solution 1 mg 1 mg, Intravenous, EVERY 3 HOURS PRN, Starting on Mon04/13/22 at 2136, Until Adele 04/14/22 at 1210, Pain 0026 (Given - Provid er: Sharron Grijalva RN)0319 (Given - Provider: Sharron Grijalva RN)0739 ([facility] Hold - Provider: Admin Adt - Reason: Transfer to a Procedural area)1210 ([facility] Unhold - Provider: Automatic Discharge Provider) ondansetron (pf) (Zofran) (2 mg/mL) injection 4 mg 4 mg, Intravenous, EVERY 4 HOURS PRN, Starting on Mon04/13/22 at 2113, Until Adele 04/14/22 at 1210, Nausea, Vomiting, Routine 0739 ([facility] Hold - Provider: Admin Adt - Reason: Transfer to a Procedural area)1210 ([facility] Unhold - Provider: Automatic Discharge Provider) sodium chloride 0.9 % (flush) (BD PosiFlush Normal Saline 0.9) flush 3 mL 3 mL, Intravenous, EVERY 1 MIN PRN, Starting on Mon04/13/22 at 2036, Until Adele 04/14/22 at 1210, for flushes pre / post IV fluids or blood draws as needed, Routine 0739 ([facility] Hold - Provider: Admin Adt - Reason: Transfer to a Procedural area)1210 ([facility] Unhold - Provider: Automatic Discharge Provider) documented in this encounter Care Teams Drink Box Mechanic Relationship Specialty Start Date End Date Dina Diaz PA [address] [place] [address] [place] [address] PCP - General Internal Medicine 05/26/20 documented as of this encounter
--- OUTSIDE RECORDS SUMMARY | 2023-10-04 01:06 | XMS_ITS | Encounter Summary ---
Author Organization Formerly [facility] [place] [address] Care Team Providers Care Manager Surgery Name Role Phone Dina Diaz Primary Care Provider + Reason for Visit * Auth/Cert (Routine) Specialty Diagnoses / Procedures Referred By John almaraz Referred To Contact Diagnoses Dyspareunia due to medical condition in female Difficulty voiding Dyspareunia; difficulty voiding, Urge UI Procedures PRO REMV/REVS SLING FOR STRES INCONTINENCE PRO INJECT TRIGGER POINT, 1 OR 2 SLING, REVISEOR REMOVE, REPLACE, VAGINALAPPROACH, SYNTHETIC\FASCIA (WRVU 11.15) INJECTION,SINGLE OR MULTIPLE TRIGGER POINTS (WRVU 0.66) Abundio Adams MD [facility] [place] [address] [facility] Referral ID Status Reason Start Date Expiration Date Visits Re quested Visits Authorized [id number] 1 1 Encounter Details Date Type Department Care Team (Late st Contact Info) Description 03/15/2022 9:10 AM EST - 03/15/2022 11:04 AM EST Surgery [place] [address] Abundio Adams MD [facility] [place] [address] SLING, REVISEOR REMOVE, REPLACE, VAGINALAPPROACH, SYNTHETIC\FASCIA (WRVU 11.15) Social History Tobacco Use Types Packs/Day Years [...] Sign Reading Time Taken Comments Blood Pressure 117/78 03/15/2022 10:00 AM EST Pulse 86 03/15/2022 10:00 AM EST Temperature 36.8 ??C (98.2 ??F) 03/15/2022 11:[address] Respiratory Rate 16 03/15/2022 10:00 AM EST Oxygen Saturation 100% 03/15/2022 10:00 AM EST Inhaled Oxygen Concentration - - Weight 63.5 kg (140 lb) 03/15/2022 8:29 AM EST Height 165.1 cm (5' 5) 03/15/2022 8:29 AM EST Body Mass Index 23.3 03/15/2022 8:29 AM EST documented in this encounter Discharge Instructions * Patient Instructions* Raymond French, - 03/14/2022 7:28 AM EST Future Appointments and Orders Future Appointments and Orders Future Appointments Provider Department Dept Phone 04/27/2022 9:40 AM Christina Dove, SEARCH ANALYST; Abundio Adams MD Obstetrics and Gynecology at [facility] Arrive at: Carding Supervisor Area 5L [phone] Patient Discharge Instructions: Special Physician Instructions: If you are still needing a catheter to drain your bladder, please follow the instructions given to you separately for when to use the catheter and how to care for it. In addition, please call to check in with the urogynecology office nurse at [phone] to review how your bladder is working and when the catheter use can be discontinued. For problems, concerns related to this hospitalization or you need to change your appointment call: [facility] daytime: [phone] weekdays [facility]: [phone] [facility]: [phone] For emergencies during nights and weekends: [phone] Call your doctor if you develop: --A fever over 101 degrees F --Severe pain -- Nausea / vomiting, diarrhea, intolerance of food or drink --Heavy vaginal bleeding --Urinary frequency, urgency, or feeling of incomplete emptying of the bladder --If your wound is red, hot, swollen, tender or draining yellow/green fluid Activity level: You should be able to resume your usual activities of daily living (eating, drinking, washing, walking.). You can walk or climb stairs as long as you are not straining. You should avoid more vigorous exercise for at least 6 weeks. No lifting, pushing or pulling greater than 5-10 pounds for 6 weeks. No sexual intercourse and place nothing in the vagina for 6 weeks. Diet: Regular as tolerated, drink plenty of fluids. Use a stool softener (Colace) twice daily and Metamucil or Citrucel once or twice daily to keep your bowel movement soft and regular, so you do nothave to strain. Driving: Do not drive until you are off of all narcotic medications and you are not feeling pain; usually about 1-2 weeks. Shower/Bath: Showering is fine. Do not soak in a tub for 4-6 weeks following surgery, this may cause your stitches to dissolve too early. You can wash just above the incision and then let the soapy water wash over it. Do not scrub. Wound Care: Most women will experience some vaginal bleeding and discharge after surgery. You will want to havesome menstrual pads at home. Pain Medication Take ibuprofen and tylenol to manage your pain and should be taken on a schedule for the next 1-2 days after surgery. documented in this encounter Medications at Time of Discharge Medication Sig Dispensed Refills Start Date End Date azelastine (ASTELIN) 137 mcg (0.1 %) Aerosol, Fishtail Every 12 hours. 03/17/2020 hydrOXYzine (Atarax) 10 mg Tablet 1 tablet [...] spasm, # 30 tab, 0 Refill(s), Pharmacy: [id number], 165, cm, 08/14/21 10:33:00 EDT, Height/Length Dosing, 56, kg, 08/14/21 10:33:00 EDT, Weight Dosing 01/11/2022 07/25/2023 cyclobenzaprine (Flexeril) 5 mg Tablet 01/12/202204/14 acetaminophen (Tylenol) 325 mg Tablet Take 650 mg by mouth. 07/08/20212022 vilazodone (Viibryd) 10 mg Tablet 01/18/2022 04/14/2022 multivitamin with minerals and lutein Tablet Orally Once a day, 0 Refill(s) 03/15/2022 04/14/2022 predniSONE (Deltasone) 20 mg Tablet Take 20 [...] as of this encounter Progress Notes * Inez Olmedo RN - 03/15/2022 11:15 AM EST Pt able to void in BR without difficulty. PVR performed and MD aware. AVS reviewed with pt with good understanding. IV removed without difficulty. Pt meets discharge criteria at this time. Pt discharged home with . Donnell RN documented in this encounter H&P Notes * Abundio Adams MD - 03/15/2022 8:19 AM EST Patient Name: Emilee Abebe Patient Age: 51 y.o. Birthdate: 1970 Admit date: 03/15/2022 Attending Physician: Abundio Adams MD Planned Surgery Date: 03/15/22 Planned Procedure: excision of suburethral mesh, cystoscopy, trigger point injections Indications/Pre-op Diagnosis: exposure of suburethral mesh with history of 2 prior incontinence slings, voiding dysfunciton, dyspareunia HISTORY OF PRESENT ILLNESS: Ms. Abebe is a 51 y.o. para 3 woman who presents for her preoperative examination. Patient presents with a history of symptomatic voiding dysfunction with history of 2 prior incontinence slings, and dyspareunia. Urodynamic testing on 11/24/21 confirmed borderline obstruction on voiding pressure-flow study and urge UI. She had tenderness under the sling but no evidence for mesh exposure. She desires surgical repair. Please see prior encounter notes for more detail. She does plan to drive home after the procedure and requested that she not receive sedation for herprocedure. REVIEW OF SYMPTOMS/FUNCTIONAL STATUS: Chest pain: no Shortness of breath: no Can you walk 1/2 mile or more? yes Can you go up more than 2 flights of stairs? yes Patient can dress herself? yes Prepare meals herself? yes Bleeding disorder (h/o nose bleeds, excessive bleeding following a surgical procedure?): no Personal or Family history of blood clots?: no Sexually active?: yes with introital pain Last PAP smear: S/p hysterectomy Past anesthesia problems?: no Past Medical History: Diagnosis Date ??? Allergic state ??? Anxiety ??? Bipolar disorder ??? Chronic kidney disease ??? Degenerative disc disease ??? Depression ??? Environmental allergies with anaphylaxis ??? Fibrocystic breast disease ??? Fibromyalgia ??? Hyperlipidemia ??? Lower back injury 02/05/2013 ??? Lyme disease ??? PTSD (post-traumatic stress disorder) ??? Sleep apnea ??? Thyroid disorder ??? Vision abnormalities Past Surgical History: Procedure Laterality Date ??? BREAST CYST EXCISION Bilateral ??? CHOLECYSTECTOMY ??? COLPOSCOPY 07/30/2013 ??? ENDOMETRIAL ABLATION ??? HYSTERECTOMY 05/01/2020 Laparoscopic hysterctomy, bilateral salpingectomy, uterosacral ligament suspension, Dr.Mahmood Wilkerson and Dr. Waller ??? INCONTINENCE SURGERY 05/01/2020 Retropubic mid-urethral polypropylene sling with hysterectomy ??? MASTECTOMY, PARTIAL ??? PRO SLING OPER STRES INCONTINENCE N/A 10/13/2015 URETHRAL SUSPENSION, SLING\FASCIA OR SYNTHETIC performed by Abundio Adams MD at [facility] MAIN OR ??? ROTATOR CUFF REPAIR Left 2009 ??? SEPTOPLASTY 11/2006 tonsils and upper palate reshaping ??? THYROIDECTOMY, PARTIAL 01/2014 ??? TONSILLECTOMY 11/2006 ??? TUBAL LIGATION ??? UVULOPALATOPHARYGOPLASTY 11/2006 Social History Socioeconomic History ??? Marital status: Spouse name: Not on file ??? Number of children: Not on file ??? Years of education: Not on file ??? Highest education level: Not on file Occupational History ??? Not on file Tobacco Use ??? Smoking status: Never ??? Smokeless tobacco: Never Vaping Use ??? Vaping Use: Never used Substance and Sexual Activity ??? Alcohol use: No ??? Drug use: Yes Types: Marijuana Comment: vape 2 times a month ??? Sexual activity: Not on file Other Topics Concern ??? Not on file Social History Narrative Family history: M MVP, CVA, HTN F complications DM Social history: Single, has partner; mother lives with them. 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 Migraines Mother ??? Coronary Artery Disease Mother ??? Alzheimer Disease Mother ??? Diabetes Father ??? Breast Cancer Maternal Aunt ??? Breast Cancer Maternal Aunt ??? Alzheimer Disease Maternal Grandmother ??? Migraines Daughter ??? Migraines Daughter ??? Migraines Son ??? Aneurysm Neg Hx Allergies Allergen Reactions ??? Abilify [Aripiprazole] Other (See Comments) hallucinations ??? Nurtec Odt [Rimegepant] Rash ??? Morphine Sulfate Nausea And Vomiting ??? Amitriptyline Hcl ??? Hydrocodone ??? Imipramine ??? Oxycodone Hcl ??? Soy ??? Tree Nuts Outpatient Medications Marked as Taking for the 03/15/22 encounter (Hospital Encounter) Medication Sig Dispense Refill ??? traZODone (Desyrel) 100 mg Tablet Take 100 mg by mouth nightly. ??? atorvastatin (Lipitor) 20 mg Tablet TAKE 1 TABLET BY MOUTH ONCE DAILY There were no vitals taken for this visit. EXAM: General: alert/oriented x 3, NAD, cooperative ENT: No lymphadenopathy, pharynx clear, Good dentition Neck: No lymphadenopathy, no thyromegaly Chest: CTABL COR: RRR, no murmurs Abdomen: nontender Pelvic: deferred to operating room. Rectal: deferred to operating room. Extremities: no calf tenderness, no swelling The patient has not signed the opioid consent in anticipation of NOT requiring opioid pain medications following their surgery. IMPRESSION: Emilee Abebe is a 51 y.o. woman with symptomatic exposure of suburethral mesh with history of2 prior incontinence slings, voiding dysfunciton, and dyspareunia who desires surgical repair. PLAN: (X) Operative consent completed - 11/24/21 (X) ORT and Opioid consent not required (X) Preoperative orders completed - Infection ppx with Cefazolin -VTE ppx with SCDs (X) Questions answered Vital signs unavailable at the time of this encounter and will be reviewed prior to proceeding to surgery. Reviewed with Dr. Gladis French DO Division of Female Pelvic Medicine and Reconstructive Surgery I met with Ms. Abebe today. She denies interval health changes. She agrees to cystourethroscopy, excision of segment of suburethral mesh to treat obstructive voiding issues, and pelvic trigger pointinjections. As per note by Dr. French, she prefers the procedure be performed with local and to avoid sedation if possible. She does have her [id number] here who can drive her home in the event she needed sedation. ABUNDIO ADAMS MD documented in this encounter Miscellaneous Notes * Brief Op Note - Abundio Adams MD - 03/15/2022 9:53 AM EST Brief Operative Note Patient Name: Emilee Abebe : [id number] MR#: [id number] Case Date: 03/15/2022 Surgeon: Surgeon(s) and Role: * Abundio Adams MD - Primary * Raymond French DO - Fellow Preoperative diagnosis: Dyspareunia; difficulty voiding, Urge UI Postoperative diagnosis: Dyspareunia; difficulty voiding, Urge UI Procedure(s) (LRB): SLING, REVISEOR REMOVE, REPLACE, VAGINALAPPROACH, SYNTHETIC\FASCIA (WRVU 11.15) (Midline) INJECTION,SINGLE OR MULTIPLE TRIGGER POINTS (WRVU 0.66) (N/A) (transvaginal excision of suburethral sling. Cystourethroscopy. Pelvic floor injection, bilateral, 4 muscles) Anesthesia: MAC Findings: Cystourethroscopy with normal bladder, urethral mucosa. Ureters in orthotopic position, free spill of urine bilaterally. No evidence of mesh in urethra or bladder. Suburethral blue polypropylene mesh identified on dissection at mid-urethral vagina, ~1 cm excised. Bilateral pelvic muscle tender on exam and injected. Complications: none Intake: Intraprocedure Crystalloid Total Intake Lactated Ringers 200.00 mL Total Intake 200 mL Transfusion No data found in the last 1 encounters. Output: Estimated Blood Loss: Urine Output:: (no urine output recorded) Other Output: (no other output recorded) Drains: Sanchez, removed at conclusion of the case. Specimens removed during surgery: Order Name Source Comment Collection Info Order Time SPECIMEN TO PATHOLOGY Urethral sling--gross only OR 23 [id number] Dyspareunia; difficulty voiding, Urge UI urethral sling--gross only excision No 03/15/2022 9:39 AM Time specimen removed from patient: 9:39 AM Number of tissue samples (in container) 1 Biospecimen to store? No Disposition: Taken to Same Day Surgery awake. Condition: doing well without problems Attestation: Case Date: 03/15/2022 I was present and I participated during the entire procedure (does not need to include opening and closing). (Please see the Surgical Encounter Summary for any Implant and Specimen details pertinent to this patient.) Surgical Infection Prevention Bundle Used? N/A * Op Note - Abundio Adams MD - 03/15/2022 9:15 AM EST [facility] Operative Note Patient Name: Emilee Abebe : [id number] MR#: [id number] Case Date: 03/15/2022 Surgeon: Surgeon(s) and Role: * Abundio Adams MD - Primary * Raymond French DO - Fellow Preoperative diagnosis: Dyspareunia; difficulty voiding, Urge UI Postoperative diagnosis: Dyspareunia; difficulty voiding, Urge UI Procedure(s) (LRB): SLING, REVISEOR REMOVE, REPLACE, VAGINALAPPROACH, SYNTHETIC\FASCIA (WRVU 11.15) (Midline) INJECTION,SINGLE OR MULTIPLE TRIGGER POINTS (WRVU 0.66) (N/A) (transvaginal excision of suburethral sling. Cystourethroscopy. Pelvic floor injection, bilateral, 4 muscles) Anesthesia: MAC, local ?? Findings: Cystourethroscopy with normal bladder, urethral mucosa. Ureters in orthotopic position, free spill of urine bilaterally. No evidence of mesh in urethra or bladder. Suburethral blue polypropylene mesh identified on dissection at mid-urethral vagina, ~1 cm excised. Bilateral pelvic muscle tender on exam and injected. ?? Complications: none Intake: Intraprocedure Crystalloid Total Intake Lactated Ringers 200.00 mL Total Intake 200 mL Transfusion No data found in the last 1 encounters. Output: Estimated Blood Loss: Urine Output:: (no urine output recorded) Other Output: (no other output recorded) Drains: Sanchez, removed at conclusion of the case. ?? Specimens removed during surgery: Order Name Source Comment Collection Info Order Time SPECIMEN TO PATHOLOGY ?? Urethral sling--gross only OR 23 [id number] Dyspareunia; difficulty voiding, Urge UI urethral sling--gross only excision No 03/15/2022 9:39 AM Time specimen removed from patient: 9:39 AM ? Number of tissue samples (in container) 1 ? Biospecimen to store? No ? Disposition: Taken to Same Day Surgery awake. ?? Condition: doing well without problems Surgical Closure: Primary Closure - skin incision is completely closed without any wires, brit, drains or other devices (Please see the Surgical Encounter Summary for any Implant and Specimen details pertinent to this patient.) HPI/Surgical Indications: Ms. Abebe is a 51 y.o. para 3 woman who presents for her preoperative examination. Patient presents with a history of symptomatic voiding dysfunction with history of 2 prior incontinence slings, and dyspareunia. Urodynamic testing on 11/24/21 confirmed borderline obstruction on voiding pressure-flow study and urge UI. She had tenderness under the sling but no evidence for mesh exposure. She desires surgical repair. Please see prior encounter notes for more detail. ?? She does plan to drive home after the procedure and requested that she not receive sedation for herprocedure. Procedure Description: The patient was brought to OR# 23. By patient preference, she did not undergo induction of anesthesia, opting for local anesthetic only and anesthesia monitoring with intervention only as required. The patient was positioned in the dorsal lithotomy position in adjustable Yellowfin stirrups in what was felt to be a neurologically safe positioning and the patient stated comfort with the position. She had knee-high intermittent pneumatic compression stockings in place throughout the procedure. She received 2 gm Cefazolin IV prior to incision. She was prepped and draped in the usual sterile fashion. A time out protocol was adhered to, confirming the patient's identity, planned procedure and safety measures. Cystourethroscopy was performed with 30-degree and 70-degree cystoscopes with reassuring findings. A Sanchez catheter was place. Next, the right anterior wall was infiltrated with 1% lidocaine with epinephrine solution at the suburethral area. A vertical incision was made with the scalpel at the level of the midurethra to expose the underlying mesh, visible given its blue coloring. The mesh was carefully undermined with Metzenbaum scissors and a right angle clamp was passed underneath the full thickness of the mesh. With traction on the mesh, the mesh was undermined with sharp dissection on theleft aspect. The left arm of the mesh was divided sharply 1cm left of midline. With traction on themesh, the right arm was similarly undermined and divided yielding a 2cm portion of suburethral mesh. There was a small area of mesh remaining in the midline which was sharply undermined, dissected from suburethal tissue and divided bilaterally. There was minimal bleeding at the epithelial edge, andthis did not require electrocautery. The suburethral area was palpated and there was no further mesh. The vagina was closed with 2-0 Vicryl in running fashion. Attention was turned to the pelvic salvador injections. The vagina was palpated and the pubococcygeus and puborectalis muscles identified along with the sacrospinous ligament. Because the patient was awake, this was further confirmed with her cooperation in performing a Kegel maneuver. Next a 10 mL syringe filled with a mixture of 1 mL (40 mg) triamcinolone and 9 mL of 0.25% bupivacaine was attached to a 21 gauge spinal needle, inserted into an Ogle trumpet and the right puborectalis, pubococcygeusmuscles were injected after a negative syringe withdraw. The left puborectalis and pubococcygeus muscles were injected on the opposite side a similar volume and solution. The patient tolerated the procedure well with moderate discomfort. Sponge and needle counts were correct at the conclusion of the procedure. Surgical Infection Prevention Bundle Used? N/A Cefazolin 2 gm IV was administered for infection prophylaxis. documented in this encounter Plan of Treatment Not on file documented as of this encounter Procedures Procedure Name Priority Date/Time Associated Diagnosis Comments SURGICAL PATHOLOGY REPORT Routine 03/15/2022 9:39 AM EST SPECIMEN TO PATHOLOGY Routine 03/15/2022 9:39 AM EST Inject Trigger Point, 1 Or 2 ([id number]) 03/15/2022 8:52 AM EST Dyspareunia; difficulty voiding, Urge UI Remv/Revs Sling For Stres Incontinence ([id number]) 03/15/2022 8:52 AM EST Dyspareunia; difficulty voiding, Urge UI SLING, REVISE\REMOVE\REPLACE \VAGINAL APPROACH\SYNTHETIC\FA SCIA Routine 03/15/2022 8:03 AM EST INJECTION,SINGLE OR MULTIPLE TRIGGER POINTS Routine 03/15/2022 8:03 AM EST documented in this encounter Results * Surgical Pathology Report (03/15/2022 9:39 AM EST) Final Diagnosis [id number] ? Location: [facility]; The signing pathologist has (i) examined the relevant preparation(s) for the specimen(s) and (ii) rendered or confirmed the diagnosis(es). . ?Surgical Pathology DIAGNOSIS A - Urethral sling, gross only (excision): ??- Benign fibromuscular tissue with mild chronic inflammation. Electronically signed by: ?Monique Barajas MD Verified: ??03/17/2022 12:59 ??Pathologist Performed at: ??-[facility] Dept. of Pathology, [place] [address] Director Export: Wagner Juarez MD, FCAP, ??CLIA Certificate: [id number] SPECIMEN(S) SUBMITTED A - Urethral sling-gross only, excision (1) CLINICAL INFORMATION Dyspareunia; difficulty voiding, urge UI. SPECIMEN PROCESSING A - Labeled/Fixative: Urethral sling-gross only, fresh. Quantity/Size: Two, 0.6 x 0.4 x 0.4 cm and 1.3 x 1.0 x 0.2 cm. Tissue Description: Fragments of blue mesh with minimal attached pink-bonner soft tissue. Sections/Processi ng: Magnet Placer attached soft tissue is submitted in 1 cassette labeled A1. ??jnr 03/17/2022 12:59 PM EST [facility] URETHRAL STRUCTURE / Unknown 03/15/2022 9:39 AM EST 03/15/2022 9:39 AM EST Abundio Adams MD PATHOLOGY/CYTOLOGY O RDERABLES [facility] [place] [address] [facility] [place] [address] * Specimen to Pathology (03/15/2022 9:39 AM EST) AP Specimen 03/15/2022 9:39 AM EST 03/15/2022 9:39 AM EST Narrative [facility] - 03/15/2022 9:39 AM EST Specimen requisition ordered. ??Separate Pathology report to follow Abundio Adams MD PATHOLOGY/CYTOLOGY O AIDE Performing Organization Address City/[facility] Co de Phone Number [facility] [place] [address] documented in this encounter Visit Diagnoses Not on filedocumented in this encounter Administered Medications Inactive Administered Medications - up to 3 most recent administrations Medication Order MAR Action Action Date Dose Rate Site BUpivacaine (pf) (Marcaine) (2.5 mg/mL) 0.25% injection ONCE PRN, Starting on Mon03/15/22 at 0934, Until Mon03/15/22 at 1316, Intra-Operative (Intra-Procedure), Routine Given 03/15/2022 9:34 AM EST 9 mLs 19- Surgical Site lidocaine-EPINEPHrine (1% - 1:100,000) injection ONCE PRN, Starting on Mon03/15/22 at 0938, Until Mon03/15/22 at 1316, Intra-Operative (Intra-Procedure), Routine Given 03/15/2022 9:38 AM EST 8 mLs 19- Surgical Site triamcinolone acetonide (Kenalog-40) (40 mg/mL) injection ONCE PRN, Starting on Mon03/15/22 at 0936, Until Mon03/15/22 at 1316, Intra-Operative (Intra-Procedure), Routine Given 03/15/2022 9:36 AM EST 40 mg 19- Surgical Site documented in this encounter Active and Recently Administered Medications Times are shown in EST. Scheduled Medication Order 03/13/2022 03/14/2022 03/15/2022 ceFAZolin (Ancef) 2 g vial attach to sodium chloride 0.9% 100 mL Mini-Bag Plus (COMPLETED) 2 g, Intravenous, ONCE, 1 dose, On Mon03/15/22 at 0830, Administer over 30 Minutes, Drawstring Knotter to OR Infuse over 30 minutes., Day of Surgery (Day of Procedure), Indication for (Active or Suspected): Prophylaxis 0855 (New Bag - Prov ider: Celina Hoffman) PRN Medication Order 03/13/2022 03/14/2022 03/15/2022 acetaminophen (Tylenol) tablet 650 mg 650 mg, Oral, EVERY 6 HOURS PRN, Starting on Mon03/15/22 at 0958, Until Mon03/15/22 at 1316, Pain, If multiple pain medications ordered, use acetaminophen first. Maximum dose of acetaminophen is 4000 mg from all sources in 24 hours. When ordered for pain, acetaminophen should be given even when other ordered pain medications are indicated., Routine BUpivacaine (pf) (Marcaine) (2.5 mg/mL) 0.25% injection (CANCELED) ONCE PRN, Starting on Mon03/15/22 at 0934, Until Mon03/15/22 at 1316, Intra-Operative (Intra-Procedure), Routine 0934 (Given - Provid er: Abundio Adams MD - Comment: 9 mL 0.25% bupivicaine mixed with 1mL 40 mg/mL triamcinolone.) lidocaine-EPINEPHrine (1% - 1:100,000) injection (CANCELED) ONCE PRN, Starting on Mon03/15/22 at 0938, Until Mon03/15/22 at 1316, Intra-Operative (Intra-Procedure), Routine 09 (Given - Provid er: Abundio Adams MD) triamcinolone acetonide (Kenalog-40) (40 mg/mL) injection (CANCELED) ONCE PRN, Starting on Mon03/15/22 at 0936, Until Mon03/15/22 at 1316, Intra-Operative (Intra-Procedure), Routine 0936 (Given - Provid er: Abnudio Adams MD - Comment: 9 mL 0.25% bupivicaine mixed with 1mL 40 mg/mL triamcinolone.) documented in this encounter Care Teams Manager Surgery Relationship Specialty Start Date End Date Dina Diaz PA [address] [place] [address] [place] [address] PCP - General Internal Medicine 05/26/20 documented as of this encounter
--- OUTSIDE RECORDS SUMMARY | 2023-10-04 01:06 | XMS_ITS | Encounter Summary ---
Author Organization [facility] Address [facility] Lukas [facility] [place] [address] Care Team Providers Care Helpdesk Manager Name Role Phone Dina Diaz Primary Care Provider + Reason for Visit * Reason Comments Urinary Incontinence * Consultation (Routine) - Closed Specialty Diagnoses / Procedures Referred By John almaraz Referred To Contact Obstetrics and Gynecology Diagnoses Feeling of incomplete bladder emptying Simone Jimenez MD [address] [place] [id number] Ariella Adams MD [facility] OBSTETRICS [place] [address] Referral ID Status Reason Start Date Expiration Date Visits Re quested Visits Authorized [id number] Closed 05/05/2021 05/05/2022 1 1 Encounter Details Date Type Department Care Team (Latest Contact Info) Description 07/08/2021 4:00 PM EDT TH Visit (TeleHealth) Obstetrics [place] [address] Ariella Adams MD [facility] OBSTETRICS AND GYNECOLOGY [place], [place] [id number] Urge urinary incontinence; Incomplete emptying of bladder; Dyspareunia, female Social History Tobacco Use Types Packs/Day Years [...] Taken Comments Blood Pressure - - Pulse - - Temperature - - Respiratory Rate - - Oxygen Saturation - - Inhaled Oxygen Concentration - - Weight 58.1 kg (128 lb) 07/06/2021 10:07 AM EDT Height 165.1 cm (5' 5) 07/06/2021 10:07 AM EDT Body Mass Index 21.3 07/06/2021 10:07 AM EDT documented in this encounter Progress Notes * Citlaly Dowling LNA - 07/08/2021 4:00 PM EDT __x__ Patient not reached; message left on 07/05/21 ____Patient reached and the following information was reviewed/obtained per protocol. ___Confirmed patient name and date of ___Confirmed tele med appt (Virtual visit) is downloaded and functioning ___Confirmed location of patient- TeleVisit is taking place in [place]__ [place]__ [place]__ If not on [facility], working on signing up for my DH Confirmed has completed any pre-visit questionnaires If has not received required previsit questionnaires, send via [facility] ___Reviewed medications, allergies, pharmacy, pain/depression, education ___Documented height/weight/LMP Other information or concerns: * Dunia Franklin CCMA - 07/08/2021 4:00 PM EDT ____ Patient not reached-patient called back _X__Patient reached and the following information was reviewed/obtained per protocol. _X__Confirmed patient name and date of _X__Confirmed tele med appt (Virtual visit) is downloaded and functioning _X__Confirmed location of patient- TeleVisit is taking place in [place]_ [place]__[place]__ [place]__ If not on [facility], working on signing up for my DH Confirmed has completed any pre-visit questionnaires If has not received required previsit questionnaires, send via [facility] _X__Reviewed medications, allergies, pharmacy, pain/depression, education _X__Documented height/weight/LMP Other information or concerns: * Ariella Adams MD - 07/08/2021 4:00 PM EDT TELEHEALTH Encounter [facility] Female Pelvic Medicine and Reconstructive Surgery @ [facility] I obtained the patient's consent to receiving health care services at [facility] through telemedicine. We discussed the opportunities and limitations of delivering health care services through telemedicine. I told the patient that the telemedicine service is being delivered over a secure connection, except in the event of emergency conditions when such requirements may be waived. Patient agreed to the participation of other individuals assisting with their care by telemedicine, if indicated. Patient informed that telemedicine informed consent form is available for patient's review in [facility]'s patient portal, [employer]. Patient verbally consents to this visit and understands that this visit may be billed, similar to aclinic office visit. Ms. Emilee Wilhelm is participating in a Telehealth visit today. Prior to beginning the visit, I confirmed the patients name and date of . Emilee Wilhelm 1970 Time of start of TeleHealth visit: 16:05 pm Time of end of TeleHealth visit: 16:28 pm Location of patient at the time of visit: [place] I provided care to the patient today via TeleHealth, 23 minutes visit was spent in discussion with patient. Patient Name: Emilee Wilhelm Patient Primary Care Provider: THANIA Azar Patient Active Problem List Diagnosis Code ??? Allergic rhinitis J30.9 ??? PTSD (post-traumatic stress disorder) F43.10 ??? Bipolar disorder F31.9 ??? Overactive thyroid gland E05.90 ??? Fibromyalgia M79.7 ??? Hypothyroidism E03.9 ??? Deficiency of vitamin B12 E53.8 ??? Sleep apnea G47.30 ??? LSIL (low grade squamous intraepithelial lesion) on Pap smear [id number] ??? DDD (degenerative disc disease), lumbar M51.36 ??? Low back pain M54.50 ??? Polyp of colon, adenomatous D12.6 ??? Vitamin D deficiency E55.9 ??? Stress incontinence, female N39.3 ??? Intractable chronic migraine without aura and without status migrainosus G43.719 ??? Migraine with aura and without status migrainosus, not intractable G43.109 ??? Medication overuse headache G44.40 Chief Complaint: urinary incontinence, ? Difficulty with bladder emptying History of Present Illness: Ms. Wilhelm is a 50 y.o. old para 3 woman, seen at the kind request ofDr. Simone Jimenez. She presents for evaluation and assessment of difficulty emptying her bladder of several month's duration. She is s/p trans-obturator mid-urethral polypropylene sling with ga 10/13/2015. She had a repeat retropubic mid-urethral mesh sling and Laparoscopic hysterctomy, bilateral salpingectomy, uterosacral ligament suspension, with Dr.Mahmood Wilkerson and Dr. Waller, in [place], [place] on 05/01/20. Since that procedure, she notes recurrent UTIs and had gross hematuria. Dr. Jimenez evaluated her hematuria with cystoscopy which was reassuring. She had upper tract imaging with small renal cysts and corticomedullary calcifications. Urine cytology was negative for malignancy. Her bladder scan PVR with Dr. Jimenez was elevated at 210 mL. Goals for this visit 1. Decrease urge incontinence Urinary tract history Patient denies history of recurrent urinary tract infection. Patient does have a history of pyelonephritis. She had two since December 2020. Patient denies history of urinary tract abnormality. (followed for renal mass, reassuring and stable as per Dr. Jimenez's note with serial CT urogram over several year period). Patient did have a history of nephrolithiasis many years ago, 1999. Patient does have history of hematuria. Bladder irritants: Fluid intake: Coffee, water, Gatorade Caffeine intake: 2 cups of coffee / am Cigarette smoking (packs, time, if quit when): no Alcohol: very rarely Bladder Function Urinary incontinence: yes ICIQ-UI Short Form How often do you leak urine? Never 0 About once a week or less often 1 x 2-3 times a week 2 About once a day 3 Several times a day 4 All the time 5 How much urine do you usually leak? None 0 With coughing A small amount 1 With urge A moderate amount 2 A large amount 3 Overall, how much does leaking interfere with your everyday life? 7 (0 not at all, 10 a great deal) ICIQ Sum the scores: 11 When does urine leak? (Check all that apply) Never - Urine does not leak xxx Leaks before you can get to the toilet occ Leaks when you cough or sneeze Leaks when you are asleep Leaks when you are physically active/exercising occ Leaks when you have finished urinating or are dressed Leaks for no obvious reason Leaks all the time Pad use (per day): no Pad type: n/a Daytime voids: Every 30 - 1 hour Nocturia: 0-1 Previous urinary incontinence treatment (Medical/Behavioral/Surgical): TO sling 2016, retropubic sling Storage symptoms Urinary frequency Nocturia rare Stress urinary incontinence - leakage with exertion, cough/sneeze xxx Urge urinary incontinence - leakage preceded immediately by urge to void Noctural enuresis - NOT IN ASSOCIATION WITH URGE Continuous urinary leakage Other: (e,g. giggle, intercourse-related) Bladder sensation Normal - aware of filling and increased sensation up to desire to void x Increased - feels an early and persistent need to void Reduced - aware of filling but NOT definite desire to void Absent - NO sensation of filling or need to void Non-specific - No specific bladder symptoms during filling or void Voiding symptoms None Slow stream Spraying Intermittent stream - stop/start on > 1 occasion during void Straining - muscular effort to initiate, maintain OR improve stream Terminal dribble - prolonged final part of void x Feeling of incomplete emptying Pelvic Organ Prolapse (POP) Any personally see or feel a vaginal bulge? no What precipitates prolapse or symptoms of prolapse? n/a Previous treatment for POP (physical therapy, pessary, surgery)?: Hysterectomy with repair Bowel Function Fecal incontinence (yes/no): no Number of fecal incontinent episodes (day/week): n/a Number of bowel movements (day/week): Every other day Defecatory Dysfunction: Symptom Presence Symptom Presence NONE Incomplete Emptying Straining x Infrequent stools (<3 week) Splinting Abdominal discomfort Loose stools Defecatory urgency Hard stools Other Sexual Function Active?: yes Pain with intercourse?: yes If yes, insertional/Deep? Introital, since hysterectomy; some discharge Desire to retain sexual function? yes Past Medical History: Diagnosis Date ??? Allergic [...] COLPOSCOPY 07/30/2013 ??? ENDOMETRIAL ABLATION ??? HYSTERECTOMY ??? MASTECTOMY, PARTIAL ??? PRO SLING OPER STRES INCONTINENCE N/A 10/13/2015 URETHRAL SUSPENSION, SLING\FASCIA OR SYNTHETIC performed by Ariella Adams MD at [facility] MAIN OR ??? ROTATOR CUFF REPAIR Left 2009 ??? SEPTOPLASTY 11/2006 tonsils and upper palate reshaping ??? THYROIDECTOMY, PARTIAL 01/2014 ??? TONSILLECTOMY 11/2006 ??? TUBAL LIGATION ??? UVULOPALATOPHARYGOPLASTY 11/2006 OB History Para Term AB Living 5 3 0 0 2 3 SAB IAB Ectopic Multiple Live Births 2 0 0 0 0 # Outcome Date GA Lbr Adrian/2nd Weight Sex Delivery Anes PTL Lv 5 SAB 4 SAB 3 Para 2 Para 1 Para Outpatient Medications Marked as Taking for the 07/08/21 encounter (TH Visit (TeleHealth)) with Ariella Adams MD Medication Sig Dispense Refill ??? rimegepant (Nurtec ODT) 75 mg Tablet, Rapid Dissolve Take 1 tablet by mouth every 48 hours as needed. 8 tablet 3 ??? baclofen (Lioresal) 10 mg Tablet Take 1 tablet by mouth 3 times daily as needed (For mild-moderate headaches, max daily dose of 30 mg). 90 tablet 3 ??? prochlorperazine (Compazine) 5 mg Tablet Take 2 tablets by mouth every 8 hours as needed (For headache associated migraine, also for nausea/vomiting). 15 tablet 3 ??? Banophen 50 mg Capsule TAKE 1 CAPSULE BY MOUTH EVERY 6 TO 8 HOURS NEEDED ??? traZODone (Desyrel) 100 mg Tablet ??? cyclobenzaprine (Flexeril) 10 mg Tablet TAKE 1 TABLET BY MOUTH THREE TIMES DAILY NEEDED ??? buPROPion XL (Wellbutrin XL) 300 mg Tablet Extended Release 24 hr TAKE 1 TABLET BY MOUTH ONCE DAILY IN THE MORNING FOR 30 DAYS ??? atorvastatin (Lipitor) 20 mg Tablet TAKE 1 TABLET BY MOUTH ONCE DAILY ??? fluticasone (FLONASE) 50 mcg/actuation [place], Suspension 1 spray by Each Nare route 2 times daily. ??? EPINEPHrine (EPIPEN) 0.3 mg/0.3 mL (1:1,000) Auto-Injector Inject 0.3 mLs into the muscle once as needed. 1 each 1 Allergies Allergen Reactions ??? Abilify [Aripiprazole] Other (See Comments) hallucinations ??? Morphine Sulfate Nausea And Vomiting ??? Oxycodone-Acetaminophen Other (See Comments) rapid heart rate ??? Amitriptyline Hcl ??? Hydrocodone ??? Imipramine ??? Oxycodone Hcl ??? Soy ??? Tree Nuts Social History Socioeconomic History ??? 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 Migraines Son ??? Aneurysm Neg Hx Family history: denies history of gynecologic cancer ROS: Review of all other systems negative except for those mentioned above or indicated below: System Symptom Presence Constitutional Weight Loss 50# Weight gain Eyes History of glaucoma ENT/Mouth Mouth sores/Dry mouth + dry mouth Cardiovascular Chest pain Leg swelling Respiratory Wheezing SOB GI Nausea/vomiting + nausea Constipation Abdominal pain Skin/Breast Breast masses Rash/ulcer Musculoskeletal Muscle weakness Arms and legs intermittent Trouble Walking Neurological Dizziness/falling Some dizziness Numbness In hands and feet Psychiatric Depression x Anxiety x Endocrine Abnormal thirst Menopause: Y/N / age? S/p hysterectomy, left ovaries. No hot flushes. Hot flashes Hematologic Frequent bruising History of blood transfusions no Blood clots (DVT / PE) no Prior problems w/ anesthesia no Last Pap smear: S/p hysterectomy Outside medical records reviewed: I reviewed scanned records for her hysterectomy and Dr. Jimenez's evaluation. OBJECTIVE: Ht 165.1 cm (5' 5) Wt 58.1 kg (128 lb) BMI 21.30 kg/m?? General: normal appearing female, pleasant mood, normal speech Exam: Full exam deferred due to TeleHealth visit. Impression: Ms. Wilhelm is a .50 y.o. woman with: ?? Urge urinary incontinence. ?? Incomplete bladder emptying per Dr. Jimenez. ?? W/u for gross hematuria reassuring. ?? Dyspareunia since repeat sling / hysterectomy with repair. Recommendations: Based on the patients expressed goals for management I have recommended the following: ?? Set up urodynamic testing. (had UDS 07/20/2015 prior to first sling). ?? Exam with POP-Q, check of introitus to evaluate introital dyspareunia ARIELLA ADAMS MD Division of Female Pelvic Medicine/Reconstructive Surgery CC: THANIA Azar MD documented in this encounter Plan of Treatment Not on file documented as of this encounter Visit Diagnoses Diagnosis Urge urinary incontinence Urge incontinence Incomplete emptying of bladder Incomplete bladder emptying Dyspareunia, female Dyspareunia documented in this encounter Care Teams Helpdesk Manager Relationship Specialty Start Date End Date Dina Diaz PA [address] [place] [address] [place] [address] PCP - General Internal Medicine 05/26/20 documented as of this encounter
--- OUTSIDE RECORDS SUMMARY | 2023-10-04 01:06 | XMS_ITS | Encounter Summary ---
[place] [address] Care Team Providers Care Watch Parts Grinder Name Role Phone Dina Diaz Primary Care Provider + Reason for Visit * Reason Onset Date Comments Other 02/25/2022 Encounter Details Date Type Department Care Team (Late st Contact Info) Description 02/25/2022 Telephone Neurology at [address] [phone] Sanaz Aburto, DRAFTING ENGINEER [facility] [place] [address] Other Social History Tobacco Use Types Packs/Day Years [...] encounter Miscellaneous Notes * Telephone Encounter - Citlaly Covington RN - 02/25/2022 9:02 AM EST Copied from CRM #[id number]. Topic: Specialty Dept CRMs - Generic Call >> Feb 24, 2022 3:22 PM Rosemarie Maldonado wrote: Specialist: Lamonte Yo APRN Relationship (if other than patient-full name): self Emilee Reason for Call: Emilee is requesting a call from Sanaz or a nurse to discuss possible injectablemedication options that would be available for her Emilee is available at anytime for a return call documented in this encounter Plan of Treatment Not on file documented as of this encounter Visit Diagnoses Not on filedocumented in this encounter Care Teams Watch Parts Grinder Relationship Specialty Start Date End Date Dina Diaz PA [address] [place] [address] [place] [address] PCP - General Internal Medicine 05/26/20 documented as of this encounter
--- OUTSIDE RECORDS SUMMARY | 2023-10-04 01:06 | XMS_ITS | Encounter Summary ---
[place] [address] Care Team Providers Care Mouthpiece Maker Name Role Phone Dina Diaz Primary Care Provider + Encounter Details Date Type Department Care Team (Late st Contact Info) Description 08/20/2021 Refill Neurology at [address] [phone] [place] [address] Social History Tobacco Use Types Packs/Day Years [...] on filedocumented in this encounter Care Teams Mouthpiece Maker Relationship Specialty Start Date End Date Dina Diaz PA [address] [place] [id number] PCP - General Internal Medicine 05/26/20 documented as of this encounter
--- OUTSIDE RECORDS SUMMARY | 2023-10-04 01:06 | XMS_ITS | Encounter Summary ---
Author Organization [facility] Address [facility] [place] [address] Care Team Providers Care Environmental Services Technician Name Role Phone Dina Diaz Primary Care Provider + Reason for Visit * High Dollar Medication (Routine) - Closed Specialty Diagnoses / Procedures Referred By John almaraz Referred To Contact Neurology Diagnoses Chronic migraine without aura, not intractable, without status migrainosus Procedures Onabotulinumtoxin A (BOTOX) Authorizations Request (IN CLINIC) TC ONABOTULINUMTOXINA, 1 UNIT, INJECTION PRO CHEMODENERVATION FACIAL/TRIGEM/CERV MUSC MIGRAINE Summer Dempsey MD [facility] [place] [address] [facility] Neurology [address] [place] [phone] Referral ID Status Reason Start Date Expiration Date V isits Requested Visits Authorized [id number] Closed Consult, Test & Treat 06/29/2021 09/26/2021 4 4 Encounter Details Date Type Department Care Team (Late st Contact Info) Description 07/30/2021 11:30 AM EDT Office Visit Neurology at [address] [phone] Lindsey Franklin APRN [facility] [place] [id number] Chronic migraine without aura, not intractable, without [...] PM EDT documented as of this encounter Procedure Notes * Lindsey Franklin, KARTHIKEYAN - 07/30/2021 11:30 AM EDTAssociated Order(s): CHEMODENERVATION, MEDICAL Neurology Procedure note Date: 07/30/2021 Patient: Emilee Wilhelm : 1970 Procedure: Botox injections (PREEMPT protocol) - every 12 weeks Indications: Chronic Migraine Date Procedure MIDAS 07/30/2021 Botox #1 - 155 units - Rigoberto 90/90 perez days, 9/10 pain, 230 Patient Reported: MIDAS Responses 07/30/2021 Days missed school/work 10 Days productivity at work/school reduced 30 Days did not do household work 60 Days productivity related to housework reduced 40 Days missed family, social or leisure activities 90 Days had headache 90 Pain scale 9 MIDAS Score 230 (MIDAS grade IV, severe disability) MIDAS Adjusted Score 230 Anticoagulation or antiplatelets - no Risk and benefits were explained to the patient. Written consent was obtained - 07/2021 The patient is not or planning on getting in the next 4 months, she is not nursing, has no known allergy to albumin. Control: hysterectomy Time out was preformed OnabotulinumtoxinA was reconstituted with 0.9% NaCl to create a dilution of 5 units per 0.1mL. Each injection site was sterilized with 70% isopropyl alcohol. Injections were administered with a 30 gauge, 1/2 needle. Injections administered as follows and performed bilaterally with injections split equally except for procerus: 20 units divided between 4 sites in the frontalis muscle, 10 units divided between 2 sites in the correctional classification counselor muscles, 5 units into 1 site in the procerus muscle, 40 units divided between 8 sites in the temporalis muscles, 30 units divided between 6 sites in the occipital region, 20 units divided between 4 sites in the cervicalparaspinal musculature, and 30 units divided between 6 sites in the trapezii. Total units used= 155. Total injection sites=31. Patient was injected with 155 units and 45 units were wasted/disgarded The patient tolerated the procedure without any immediate complications. Lindsey Franklin APRN [facility] Neurology Headache [facility] documented in this encounter Plan of Treatment Not on file documented as of this encounter Procedures Procedure Name Priority Date/Time Associated Diagnosis Comments CHEMODENERVATION, MEDICAL Routine 07/30/2021 11:30 AM EDT documented in this encounter Results * Chemodenervation, medical (07/30/2021 11:30 AM EDT) Narrative Lindsey Franklin APRN - 07/30/2021 11:30 AM EDT Lindsey Franklin APRN ? 07/30/2021 11:40 AM Neurology Procedure note Date: 07/30/2021 Patient: Emilee Wilhelm : ??1970 Procedure: Botox injections (PREEMPT protocol) - ??every 12 weeks Indications: Chronic Migraine Date ??Procedure ?? MIDAS 07/30/2021 Botox #1 - 155 units - Rigoberto 90/90 perez days, 9/10 pain, 230 ?? Patient Reported: MIDAS Responses 07/30/2021 Days missed school/work 10 Days productivity at work/school reduced 30 Days did not do household work 60 Days productivity related to housework reduced 40 Days missed family, social or leisure activities 90 Days had headache 90 Pain scale ??9 MIDAS Score 230 (MIDAS grade IV, severe disability) MIDAS Adjusted Score 230 Anticoagulation or antiplatelets - no Risk and benefits were explained to the patient. Written consent was obtained - 07/2021 The patient is not or planning on getting in the next 4 months, she is not nursing, has no known allergy to albumin. Control: hysterectomy Time out was preformed OnabotulinumtoxinA was reconstituted with 0.9% NaCl to create a dilution of 5 units per 0.1mL. Each injection site was sterilized with 70% isopropyl alcohol. Injections were administered with a 30 gauge, 1/2 needle. Injections administered as follows and performed bilaterally with injections split equally except for procerus: 20 units divided between 4 sites in the frontalis muscle, 10 units divided between 2 sites in the correctional classification counselor muscles, 5 units into 1 site in the procerus muscle, 40 units divided between 8 sites in the temporalis muscles, 30 units divided between 6 sites in the occipital region, 20 units divided between 4 sites in the cervical paraspinal musculature, and 30 units divided between 6 sites in the trapezii. Total units used= 155. Total injection sites=31. Patient was injected with 155 units and 45 units were wasted/disgarded The patient tolerated the procedure without any immediate complications. Lindsey Franklin APRN [facility] Neurology Headache Clinic Lindsey Franklin APRN PROCEDURE/MINOR S URGICAL ORDERABLES documented in this encounter Visit Diagnoses Diagnosis Chronic migraine without aura, not intractable, without status migrainosus documented in this encounter Administered Medications Inactive Administered Medications - up to 3 most recent administrations Medication Order MAR Action Action Date Dose Rate Site botulinum toxin type A 200 unit injection 200 Units, Intramuscular, ONCE, On Mon07/30/21 at 1145, 1 dose Given 07/30/2021 11:39 AM EDT 200 Units documented in this encounter Care Teams Environmental Services Technician Relationship Specialty Start Date End Date Dina Diaz PA [address] [place] [address] [place] [address] PCP - General Internal Medicine 05/26/20 documented as of this encounter
--- OUTSIDE RECORDS SUMMARY | 2023-10-04 01:06 | XMS_ITS | Encounter Summary ---
[place] [address] Care Team Providers Care Cook Ship Name Role Phone Dina Diaz Primary Care Provider + Reason for Visit * Reason Onset Date Comments Other 11/23/2021 Encounter Details Date Type Department Care Team (Late st Contact Info) Description 11/23/2021 Telephone Neurology at [address] [phone] Sanaz Aburto APRN [facility] [place] [address] Other Social History Tobacco Use Types Packs/Day [...] encounter Miscellaneous Notes * Telephone Encounter - Yeni Calderon RN - 11/23/2021 4:31 PM EDT Spoke to this patient to review medications and allergies for her upcoming clinic appointment with the Neurology provider. Medications and allergies reviewed, verified and updated as needed. * Telephone Encounter - Katina Cohn - 11/23/2021 4:13 PM EDT Patient returning Yeni MCKEON's call. Patient states she does have a change to medications and that Kathie MCKEON wanted to speak with her personally. Please return call to patient's cell phone. Patient is available for the rest of the day. * Telephone Encounter - Yeni Calderon RN - 11/23/2021 2:48 PM EDT Unable to reach this patient to review medications and allergies prior to clinic appointment with the Neurology provider. Message left. * Telephone Encounter - Monique Isaac RN - 11/23/2021 1:36 PM EDT Copied from CRM #[id number]. Topic: Specialty Dept CRMs - Generic Call >> Nov 23, 2021 12:21 PM Rosa Camarillo wrote: Specialist: Lamonte Relationship (if other than patient-full name): self Reason for Call: Patient states I know she is calling about medications and allergies. She statesnothing has changed * Telephone Encounter - Yeni Calderon RN - 11/23/2021 11:08 AM EDT Unable to reach this patient to review medications and allergies prior to her clinic appointment with the Neurology provider. Message left. documented in this encounter Plan of Treatment Not on file documented as of this encounter Visit Diagnoses Not on filedocumented in this encounter Care Teams Cook Ship Relationship Specialty Start Date End Date Dina Diaz PA [address] [place] [address] [place] [address] PCP - General Internal Medicine 05/26/20 documented as of this encounter
--- OUTSIDE RECORDS SUMMARY | 2023-10-04 01:06 | XMS_ITS | Encounter Summary ---
[place] [address] Care Team Providers Care Nurse Executive Name Role Phone Dina Diaz Primary Care Provider + Encounter Details Date Type Department Care Team (Late st Contact Info) Description 03/02/2022 Ancillary Procedure Radiology at [facility] [address] [place] [address] Hardy Gregorio MD [address] [place] [address] Social History Tobacco Use Types Packs/Day Years [...] Associated Diagnosis Comments FILM LIBRARY STORAGE ONLY DX SPINE Routine 03/02/2022 12:00 AM EST documented in this encounter Results * Film Library- Storage Only DX Spine (03/02/2022 12:00 AM EST) Narrative [facility] - 05/18/2023 12:30 PM EDT This exam is auto-finalizing. It's purpose is for storage only. Hardy Gregorio MD IM FILM LIBRARY ORD ERABLES [place], [place] documented in this encounter Visit Diagnoses Not on filedocumented in this encounter Care Teams Nurse Executive Relationship Specialty Start Date End Date Dina Diaz PA [address] [place] [address] [place] [address] PCP - General Internal Medicine 05/26/20 documented as of this encounter
--- OUTSIDE RECORDS SUMMARY | 2023-10-04 01:06 | XMS_ITS | Encounter Summary ---
Author Organization Counts Include [facility] Address [facility] [place] [address] Care Team Providers Care Data Management Consultant Name Role Phone Dina Diaz Primary Care Provider + Reason for Visit * Reason Comments Urinary Incontinence Urodynamics Study Encounter Details Date Type Department Care Team (Latest Contact Info) Description 11/24/2021 1:00 PM EDT Procedure visit Obstetrics [place] [address] Abundio Griffith MD [facility] [address] OBSTETRICS [place] [address] Urge urinary incontinence; Dyspareunia, female; Difficulty voiding Social History Tobacco Use Types Packs/Day Years [...] Sign Reading Time Taken Comments Blood Pressure 113/80 11/24/2021 1:00 PM EDT Pulse 98 11/24/2021 1:00 PM EDT Temperature - - Respiratory Rate - - Oxygen Saturation - - Inhaled Oxygen Concentration - - Weight - - Height - - Body Mass Index - - documented in this encounter Progress Notes * Abundio Griffith MD - 11/24/2021 1:00 PM EDT Female Pelvic Medicine and Reconstructive Surgery @ [place] Urodynamic Procedure Note Patient name: Emilee Abebe Final Impression: ?? Voiding difficulty. Slow voiding with borderline obstruction on voiding pressure flow study, s/ptwo prior slings. ?? Urge urinary incontinence, may be exacerbated by obstruction. One detrusor contraction during filling, no incontinence. ?? Dyspareunia: Exam with tenderness under sling and at pelvic floor. Recommendations: ?? We discussed options, including observation, versus PT. ?? We also discussed consideration of excision of the suburethral portion of the sling to address obstruction and urgency and pain. We reviewed risks of recurrent stress urinary incontinence, persistent urge urinary incontinence, voiding difficultly. We reviewed risks of recurrent / persistent pain. She would like to proceed with excision of the suburethral portion of the sling, pelvic floor injections INDICATIONS FOR URODYNAMICS: (x) Voiding problems - difficulty emptying (x) Urinary incontinence - urge predominant symptoms (?) Pelvic organ prolapse (x) Other: Prior mesh sling x2 As per note from 07/08/21 telehealth visit, Ms. Wilhelm is a .50 y.o. woman with: ?? Urge urinary incontinence. ?? Incomplete bladder emptying per Dr. Jimenez. ?? W/u for gross hematuria reassuring. ?? Dyspareunia since repeat sling / hysterectomy with repair. ?? No urodynamic stress urinary incontinence. ? Based on the patients expressed goals for management I have recommended the following: ?? Set up urodynamic testing. (had UDS 07/20/2015 prior to first sling). ?? Exam with POP-Q, check of introitus to evaluate introital dyspareunia A tombstone polisher was present for the procedure: Carla Mata LPN Exam: Pelvic Organ Prolapse Quantification (POP-Q): Aa -2 Ba -2 C -9 Gh Rest strain 2,3 PB Rest strain 1.5, 1.5 TVL 11 Ap -3 Bp -3 D -- General: Anxious Pelvic: Normal external genitalia. Tender at the introitus, periurethral area. Tender at the posterior introitus as well, with levator tenderness. Levator tone at rest: 3/5, squeeze 1/5. Vagina: No masses, diffuse tenderness but most tender at the suburethral vagina. No exposed mesh. Overall normal support with mild anterior wall descent. Cervix: Absent Bimanual: No masses, uterus absent. Multi-channel urodynamic evaluation procedure was verbally explained to the patient including risksof possible urinary tract infection and benefit of information from the testing. Verbal consent obtained. UROFLOWMETRY: Total Volume Voided: 268 mL Qmax: 12.3 mL/sec Qav.0 mL/sec Post void residual: 35 mL (obtained via catheter) URINE ANALYSIS: Results for orders placed or performed in visit on 11/24/21 POCT urine dipstick Result Value Ref Range POC Sp [place] 1.005 1.002 - 1.030 POC pH, UA [...] POC Blood, UA Neg. Negative - Negative ocsar/uL CYSTOMETROGRAM: 7 [place]uran T-DOC catheter was inserted into the bladder. A 7 Honduran T-DOC catheter was placed in the vagina/rectum for measurement of abdominal pressures. Filling was performed via a 7 [place] T-DOC catheter in the sitting position at a rate of 50cc/min. . Detrusor pressure at 0cc: 0 cm H2O S1-First sensation: 35 mL S2-First desire: 64 mL S3-Strong desire: 103 mL S4- Maximum cystometric capacity: 300 mL Detrusor pressure at maximum cystometric capacity: 6.7 cm H2O EMG: ( ) not done (x) stable during filling (x) appropriate increased activity with Valsalva, cough (x) appropriate relaxation with voiding Uninhibited detrusor contractions associated with urge: Yes, likely at ~7 minutes, *but Pabd not recording well Uninhibited detrusor contractions associated with urinary leakage : no Leakage seen with stress maneuvers (valsalva/cough): no Leak point pressure testing performed at 200 cc at 50cc increments and at capacity. Maneuver Leak? Volume (mL) Pressure Sitting w/o prolapse support no 200, 300 40 - 107 cm H2O (Pves) Sitting with prolapse support (scopette) cm H2O (Pves) Urethral catheter out w/o prolapse support no 300 *19 cm H2O (Pabd) Urethral catheter out with prolapse support (scopette) cm H2O (Pabd) Urethral Pressure Profile: not performed PRESSURE-FLOW VOIDING STUDY: Voided: 273 mL Maximum flow rate (Qmax): 7.1 mL/sec Detrusor pressure (Pdet) at Qmax: 35 cm H2O Comments: (?) Abdominal straining with void (borderline) Obstruction by Blaivis / Groutz nomogram ( ) Other: Symptom diagnosis: Storage symptoms ( ) None ( ) Increased daytime frequency ( ) Nocturia (x) Urgency (rare) Stress urinary incontinence (x) Urge urinary incontinence ( ) Mixed urinary incontinence ( ) Nocturnal enuresis ( ) Continuous urinary incontinence Voiding symptoms ( ) None ( ) Slow stream ( ) Splitting/spraying ( ) Straining (muscular effort to initiate, maintain or improve flow) (x) Feeling of incomplete emptying Other Diagnoses: (x) Prior mesh sling x2 Urodynamic Diagnosis: Filling Phase Diagnoses: Sensation (x) Normal bladder sensation ( ) Increased bladder sensation (First sensation < 20cc) ( ) Reduced bladder sensation (FS > 250cc & First desire > 400cc & Strong desire >600cc) ( ) Absent bladder sensation (NO sensation to void with a volume > 600cc) ( ) Urgency Filling Phase Diagnosis: Detrusor Function ( ) Normal filling detrusor function (x) Detrusor overactivity ( ) Phasic detrusor overactivity ( ) Terminal detrusor overactivity ( ) Detrusor overactivity with incontinence Filling Phase Diagnosis: Urethral closure mechanism (x) Normal filling phase ( ) Urodynamic stress urinary incontinence Voiding Phase Diagnoses: Detrusor function during voiding (x) Normal voiding detrusor function ( ) Detrusor underactivity ( ) Acontractile detrusor Voiding Phase Diagnoses: Urethral function during voiding (If EMG not done, may be less specific source) ( ) Normal urethral function during voiding (borderline) Bladder outlet obstruction ( ) Dysfunctional voiding ( ) 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 The procedure and interpretation were performed under the supervision of Dr. Griffith, attending Urogynecologist. Raymond French DO, PGY-7 Fellow, Division of Female Pelvic Medicine/Reconstructive Surgery I was present for the pertinent portions of the urodynamic testing and fully reviewed and edited the results. I was also present for the exam. I reviewed options with the patient and and her partner. She wants to proceed with pelvic floor injection and excision of the suburethral portion of the sling. We reviewed risks of recurrent stress incontinence, persistent urge UI, persistent pain. ABUNDIO GRIFFITH MD Division of Female Pelvic Medicine and Reconstructive Surgery documented in this encounter Plan of Treatment Not on file documented as of this encounter Procedures Procedure Name Priority Date/Time Associated Diagnosis Comments UROLOGY SCAN 11/24/2021 12:00 AM EDT POCT URINE DIPSTICK Routine 11/24/2021 Urge urinary incontinence documented in this encounter Results * SCAN DOC: UROLOGY (11/24/2021 12:00 AM EDT) Narrative 11/24/2021 12:00 AM EDT Ordered by an unspecified provider. Scanning Provider MEDIA MGR SCAN EXT O RDR/RSLT * POCT urine dipstick (11/24/2021) POC Sp [place] 1.005 1.002 - 1.030 POC pH, UA [...] Blood, UA Neg. Negative - Negative oscar/uL Abundio Griffith MD POINT OF CARE TEST O RDERABLES documented in this encounter Visit Diagnoses Diagnosis Urge urinary incontinence Urge incontinence Dyspareunia, female Dyspareunia Difficulty voiding Other symptoms involving urinary system documented in this encounter Care Teams Data Management Consultant Relationship Specialty Start Date End Date Dina Diaz PA [address] [place] [address] [place] [address] PCP - General Internal Medicine 05/26/20 documented as of this encounter
--- OUTSIDE RECORDS SUMMARY | 2023-10-04 01:06 | XMS_ITS | Encounter Summary ---
[place] [address] Care Team Providers Care Nurse Practitioner Physicians Assistant Name Role Phone Dina Diaz Primary Care Provider + Encounter Details Date Type Department Care Team (Late st Contact Info) Description 05/26/2021 Ancillary Procedure [place] [address] Dina Diaz PA [address] [place] [address] Social History Tobacco Use Types Packs/Day Years [...] Diagnosis Comments FILM LIBRARY STORAGE ONLY MR HEAD Routine 05/26/2021 12:00 AM EDT documented in this encounter Results * Film Library- Storage Only MR Head (05/26/2021 12:00 AM EDT) Narrative [facility] - 07/20/2021 1:41 PM EDT This exam is auto-finalizing. It's purpose is for storage only. Dina MONTEIRO IMG FILM LIBRARY ORDERABLES [place], [place] documented in this encounter Visit Diagnoses Not on filedocumented in this encounter Care Teams Nurse Practitioner Physicians Assistant Relationship Specialty Start Date End Date Dina Diaz PA [address] [place] [address] [place] [address] PCP - General Internal Medicine 05/26/20 documented as of this encounter
--- OUTSIDE RECORDS SUMMARY | 2023-10-04 01:06 | XMS_ITS | Encounter Summary ---
[place] [address] Care Team Providers Care Underwriting Manager Name Role Phone Dina Diaz Primary Care Provider + Encounter Details Date Type Department Care Team (Late st Contact Info) Description 07/09/2021 Telephone Obstetrics [place] [phone] Jayde Leung Social History Tobacco Use Types Packs/Day Years [...] on filedocumented in this encounter Care Teams Underwriting Manager Relationship Specialty Start Date End Date Dina Diaz PA [address] [place] [address] PCP - General Internal Medicine 05/26/20 documented as of this encounter
--- OUTSIDE RECORDS SUMMARY | 2023-10-04 01:06 | XMS_ITS | Encounter Summary ---
[place] [address] Care Team Providers Care Tabulating Clerk Name Role Phone Dina Diaz Primary Care Provider + Reason for Visit * Reason Onset Date Comments Prior Authorization 12/07/2021 Ubrelvy Encounter Details Date Type Department Care Team (Late st Contact Info) Description 12/07/2021 Telephone Neurology at [address] [phone] Sanaz Aburto APRN [facility] [place] [address] Prior Authorization (Ubrelvy ) Social History Tobacco Use Types Packs/Day Years [...] Telephone Encounter - Toyin Cabezas RN - 12/07/2021 2:02 PM EDT Images from the original note were not included. documented in this encounter Plan of Treatment Not on file documented as of this encounter Visit Diagnoses Not on filedocumented in this encounter Care Teams Tabulating Clerk Relationship Specialty Start Date End Date Dina Diaz PA [address] [place] [address] [place] [address] PCP - General Internal Medicine 05/26/20 documented as of this encounter
--- OUTSIDE RECORDS SUMMARY | 2023-10-04 01:06 | XMS_ITS | Encounter Summary ---
[place] [address] Care Team Providers Care Vocational Coordinator Name Role Phone Dina Diaz Primary Care Provider + Reason for Visit * Reason Onset Date Comments Post Procedure Call 03/16/2022 Encounter Details Date Type Department Care Team (Late st Contact Info) Description 03/16/2022 Telephone Obstetrics [place] [phone] Tram Moeller, RN Post Procedure Call Social History Tobacco Use Types Packs/Day Years [...] encounter Miscellaneous Notes * Telephone Encounter - Tram Moeller, RN - 03/16/2022 1:07 PM EST POST-OP TELEPHONE UPDATE Date of Surgery: 03/15/22 and had SLING, REVISEOR REMOVE, REPLACE, VAGINALAPPROACH, SYNTHETIC\FASCIA(WRVU 11.15) (Midline) INJECTION,SINGLE OR MULTIPLE TRIGGER POINTS Overall well-being: I am doing well Pain?: 2/10 Pain medication working(Y/N)?: Using Tylenol and Motrin as needed with relief Location of pain: Vaginal area Bladder function: voiding without difficulty and feels she is emptying completely Bowel function: Had a BM this am Ambulating: yes Tolerating solids / liquids: well-tolerated Dressings: none Incisions: internal Vaginal bleeding: Lite flow and has slowed down Fever: none Post Op appointment booked? HCK appt had been made Instructions: We reviewed phone contacts. The patient will call triage at during daytime hours or during the evening or weekends and ask for the physical chemistry teacher dental office receptionist if she is having problems. TRAM MOELLER, RN documented in this encounter Plan of Treatment Not on file documented as of this encounter Visit Diagnoses Not on filedocumented in this encounter Care Teams Vocational Coordinator Relationship Specialty Start Date End Date Dina Diaz PA [address] [place] [address] [place] [address] PCP - General Internal Medicine 05/26/20 documented as of this encounter
--- OUTSIDE RECORDS SUMMARY | 2023-10-04 01:06 | XMS_ITS | Encounter Summary ---
Author Organization [facility] [place] [address] Care Team Providers Care Director Emergency Department Name Role Phone Dina Diaz Primary Care Provider + Encounter Details Date Type Department Care Team (Latest Contact Info) Description 04/13/2022 Travel Social History Tobacco Use Types Packs/Day [...] on filedocumented in this encounter Care Teams Director Emergency Department Relationship Specialty Start Date End Date Dina Diaz PA [address] [place] [id number] PCP - General Internal Medicine 05/26/20 documented as of this encounter
--- OUTSIDE RECORDS SUMMARY | 2023-10-04 01:06 | XMS_ITS | Encounter Summary ---
[place] [address] Care Team Providers Care Carry Out Clerk And Shelf Stocker Name Role Phone Dina Diaz Primary Care Provider + Reason for Visit * Reason Onset Date Comments Prior Authorization 06/30/2021 [facility] Encounter Details Date Type Department Care Team (Late st Contact Info) Description 06/30/2021 Telephone Neurology at [address] [phone] [place] [address] Prior Authorization ([facility]) Social History Tobacco Use Types Packs/Day Years [...] Telephone Encounter - Monique Isaac RN - 09/13/2021 2:01 PM EDT [facility] d/t side effect Ubrelvy ordered and was approved by insurance * Telephone Encounter - Monique Isaac RN - 08/09/2021 2:28 PM EDT Faxed [facility] 2nd level appeal to [employer] Appeals * Telephone Encounter - Monique Isaac RN - 08/05/2021 9:05 AM EDT Images from the original note were not included. * Telephone Encounter - Monique Isaac RN - 08/03/2021 11:16 AM EDT Called [employer] to check the status on the appeal for [facility] Spoke with Obi who states they did not receive the appeal for [facility] Will fax again today * Telephone Encounter - Monique Isaac RN - 07/05/2021 9:24 AM EDT [facility] Biology Specialist * Telephone Encounter - Monique Isaac RN - 06/30/2021 3:00 PM EDT Images from the original note were not included. * Telephone Encounter - Toyin Cabezas RN - 06/30/2021 1:43 PM EDT Images from the original note were not included. documented in this encounter Plan of Treatment Not on file documented as of this encounter Visit Diagnoses Not on filedocumented in this encounter Care Teams Carry Out Clerk And Shelf Stocker Relationship Specialty Start Date End Date Dina Diaz PA [address] [place] [address] [place] [address] PCP - General Internal Medicine 05/26/20 documented as of this encounter
--- OUTSIDE RECORDS SUMMARY | 2023-10-04 01:06 | XMS_ITS | Encounter Summary ---
[place] [address] Care Team Providers Care Practice Director Name Role Phone Dina Diaz Primary Care Provider + Reason for Visit * Auth/Cert (Routine) Specialty Diagnoses / Procedures Referred By Contac t Referred To Contact Diagnoses Lumbar herniated disc HNP (herniated nucleus pulposus), lumbar Procedures ER OBSVO Hardy Gregorio MD [address] [place] [address] [facility] Referral ID Status Reason Start Date Expiration Date Visits Re quested Visits Authorized [id number] 1 1 Encounter Details Date Type Department Care Team (Late st Contact Info) Description 04/14/2022 7:26 AM EST Anesthesia Event Operating Room Renae Wong [address] [place] [address] Nathan Becerril CRNA [address] [place] [address] Freedom Amaya CRNA [address] [place] [address] Anesthesia Record Procedure Summary Procedure Name Responsible Anesthesiologist Anesthesia Start Time Anesthesia Stop Time LAMINECTOMY,FACETEC OTILIA & FORAMINOTOMY,LUMBAR ,ONE LEVEL,CARLOS (WRVU 15.37) (Bilateral) Nathan Becerril CRNA 04/14/22 0726 04/14/22 0850 Events Date Time Event Comment 04/14/2022 0646 0725 AN Verify 0726 Start 0726 An Start Data 0730 An Induction 0731 An Intubation 0733 Anesthesia Ready 0745 Procedure Start 0840 Extubation/LMA Out 0850 an stop data 0850 Stop Meds Name Total Midazolam 5 mg fentaNYL 200 mcg IV Lidocaine 50 mg Propofol 200 mg Rocuronium 40 mg Ondansetron 4 mg Dexamethasone 8 mg ePHEDrine 5 mg Lactated Ringers 0 mL * Agents Name O2 Air N2O Sevoflurane (et) * Blood No blood administrations on file. Lines, Drains, and Airways Type Details Placement Removal Incision 04/14/22; 0752; lumb ar spine; vertical; Dermabond, Benzoin, Paper tape 04/14/22751 by Carolann Wilkinson, RN (RETIRED) Peripheral IV Line - Single Lumen 04/13/22; 2102; median cubital vein (antecubital fossa), right; [id number] catheter system; Anatomical Landmarks; 20 gauge; caryl; no longer indicated, removed per policy/procedure, catheter/device intact; 04/14/22; 95704/13/222102 by Sharron Grijalva RN 04/14/22957 by Donte Bashir RN ETT Mask Ventilation: Ea sy (1); ETT Type: Cuffed, Oral; ETT Size: 7.5 mm; Mac Blade: 4; Notes: Asleep, Pre-O2, Stylette; Attempts: 1; Laryngoscopy Grade: 2; ETT Placement Verified By: Auscultation, Capnometry, Visual; Secured at Teeth: 21 cm; Removal Date: 04/14/22; Removal Time: 0804/14/22 0731 by Nathan Becerril CRNA 04/14/22 0840 by Nathan Becerril CRNA documented in this [...] Postprocedure Evaluation - Nathan Becerril CRNA - 04/14/2022 8:50 AM EST Department of Anesthesiology Post-procedure Note Patient: Emilee Abebe Procedure Summary Date: 04/14/22 Room / Location: [facility] MAIN OR Anesthesia Start: 725 Anesthesia Stop: 849 Procedure: LAMINECTOMY,FACETECTOMY & FORAMINOTOMY,LUMBAR,ONE LEVEL,CARLOS (Bilateral) Diagnosis: (SPONDYLOSIS, STENOSIS, HNP) Surgeons: Hardy Gregorio MD Responsible Provider: Nathan Becerril CRNA Anesthesia Type: general ASA Status: 3 - Emergent All Anesthesia Providers: KWAKU Independent: Nathan Becerril [...] RN * Anesthesia Preprocedure Evaluation - Nathan Becerril CRNA - 04/14/2022 6:45 AM EST Pre-Anesthesia Evaluation for: Emilee Abebe a 51 y.o. female. Procedure(s): LAMINECTOMY,FACETECTOMY & FORAMINOTOMY,LUMBAR,ONE LEVEL,CARLOS Patient Active Problem List Diagnosis Date Noted ??? *Lumbar herniated disc 04/13/2022 ??? HNP (herniated nucleus [...] with hysterectomy ??? MASTECTOMY, PARTIAL ??? PRO INJECT TRIGGER POINT, 1 OR 2 N/A 03/15/2022 INJECTION,SINGLE OR MULTIPLE TRIGGER POINTS (WRVU 0.66) performed by Abundio Griffith MD at [facility] MAIN OR ??? PRO REMV/REVS SLING FOR STRES INCONTINENCE Midline 03/15/2022 SLING, REVISEOR REMOVE, REPLACE, VAGINALAPPROACH, SYNTHETIC\FASCIA (WRVU 11.15) performed by Abundio Griffith MD at [facility] MAIN OR ??? PRO SLING OPER STRES INCONTINENCE N/A 10/13/2015 URETHRAL SUSPENSION, SLING\FASCIA OR SYNTHETIC performed by Abundio Griffith MD at [facility] MAIN OR ??? ROTATOR CUFF REPAIR Left 2009 ??? SEPTOPLASTY 11/2006 tonsils and upper palate reshaping ??? THYROIDECTOMY, PARTIAL 01/2014 ??? TONSILLECTOMY 11/2006 ??? TUBAL LIGATION ??? UVULOPALATOPHARYGOPLASTY 11/2006 Social History Tobacco Use ??? Smoking status: Never ??? Smokeless tobacco: Never Substance Use Topics ??? Alcohol use: Yes Comment: occ Social History Substance and Sexual Activity Drug Use Yes ??? Types: Marijuana Comment: vape 2 times [...] Oxycodone Hcl ??? Soy ??? Tree Nuts Medications: MAR and/or home medications have been reviewed. Physical Exam: Preprocedure Vitals Current as of 04/14/22 0645 BP: 103/55 Pulse: 85 Resp: SpO2: 97 Temp: 37 ??C (98.6 ??F) Height: 165.1 cm (5' 5) (04/13/22) Weight: 59.9 kg (132 lb) (04/13/22) BMI: 21.96 IBW: 57 kg (125 lb 10.6 oz) Last edited 04/14/22 0459 by CN Currently displaying vitals information from multiple entries within 180 minutes of most recent vitals. Airway Assessment: Mallampati: II TM distance: >3 FB Neck ROM: full Cardiovascular Assessment: Rhythm: regular Rate: normal Pulmonary Assessment: unlabored breathing Dental Assessment: Misc Assessment: Patient is wearing No contact(s). IV access: Peripheral line Last Filed Perioperative Cognitive Screening None Anesthesia Plan: ASA 3 emergent general, with a(n) intravenous induction Informed Consent: [...] MAR Action Action Date Dose Rate Site dexAMETHasone (Decadron) injection Intravenous, PRN, Starting on Adele 04/14/22 at 0736, Until Adele 04/14/22 at 0850, Anesthesia Intra-op, Routine Given 04/14/2022 7:36 AM EST 8 mg ePHEDrine sulfate (5 mg/mL) multi-dose injection Intravenous, PRN, Starting on Adele 04/14/22 at 0748, Until Adele 04/14/22 at 0850, Anesthesia Intra-op, Routine Given 04/14/2022 7:48 AM EST 5 mg fentaNYL (pf) (50 mcg/mL) multi-dose injection Intravenous, PRN, Starting on Adele 04/14/22 at 0730, Until Adele 04/14/22 at 0850, Anesthesia Intra-op, Routine Given 04/14/2022 8:20 AM EST 100 mcg Given 04/14/2022 7:40 AM EST 50 mcg Given 04/14/2022 7:30 AM EST 50 mcg lactated ringers infusion Intravenous, CONTINUOUS PRN, Starting on Adele 04/14/22 at 0725, Until Adele 04/14/22 at 0850, Anesthesia Intra-op New Bag 04/14/2022 7:25 AM EST lidocaine (pf) (Xylocaine) (20 mg/mL) 2% injection syringe Intravenous, PRN, Starting on Adele 04/14/22 at 0730, Until Adele 04/14/22 at 0850, Anesthesia Intra-op, Routine Given 04/14/2022 7:30 AM EST 50 mg midazolam (pf) (Versed) (1 mg/mL) multi-dose injection Intravenous, PRN, Starting on Adele 04/14/22 at 0725, Until Adele 04/14/22 at 0850, Anesthesia Intra-op, Routine Given 04/14/2022 7:30 AM EST 3 mg Given 04/14/2022 7:25 AM EST 2 mg ondansetron (pf) (Zofran) (2 mg/mL) injection Intravenous, PRN, Starting on Adele 04/14/22 at 0736, Until Adele 04/14/22 at 0850, Anesthesia Intra-op, Routine Given 04/14/2022 7:36 AM EST 4 mg propofoL (Diprivan) 10 mg/mL bolus injection (Anesthesia) Intravenous, PRN, Starting on Adele 04/14/22 at 0730, Until Adele 04/14/22 at 0850, Anesthesia Intra-op Given 04/14/2022 7:30 AM EST 200 mg rocuronium (Zemuron) 10 mg/mL injection Intravenous, PRN, Starting on Adele 04/14/22 at 0730, Until Adele 04/14/22 at 0850, Anesthesia Intra-op, Routine Given 04/14/2022 7:30 AM EST 40 mg documented in this encounter Care Teams Practice Director Relationship Specialty Start Date End Date Dina Diaz PA [address] [place] [address] [place] [address] PCP - General Internal Medicine 05/26/20 documented as of this encounter
--- OUTSIDE RECORDS SUMMARY | 2023-10-04 01:06 | XMS_ITS | Encounter Summary ---
[place] [address] Care Team Providers Care Turkey Pinner Name Role Phone Dina Diaz Primary Care Provider + Reason for Visit * Reason Onset Date Comments Medication Refill 07/01/2021 Encounter Details Date Type Department Care Team (Late st Contact Info) Description 07/01/2021 Refill Neurology at [address] [address] Summer Dempsey MD [facility] [place] [address] Migraine with aura and without status migrainosus, not intractable Social History Tobacco Use Types Packs/Day Years [...] as of this encounter Visit Diagnoses Diagnosis Migraine with aura and without status migrainosus, not intractable Migraine with aura, without mention of intractable migraine without mention of status migrainosus documented in this encounter Care Teams Turkey Pinner Relationship Specialty Start Date End Date Dina Diaz PA [address] [place] [address] [place] [address] PCP - General Internal Medicine 05/26/20 documented as of this encounter
--- OUTSIDE RECORDS SUMMARY | 2023-10-04 01:06 | XMS_ITS | Encounter Summary ---
[place] [address] Care Team Providers Care Service Supervisor Name Role Phone Dina Diaz Primary Care Provider + Reason for Visit * Reason Onset Date Comments Prior Authorization 08/17/2021 Ubrelvy Encounter Details Date Type Department Care Team (Late st Contact Info) Description 08/17/2021 Telephone Neurology at [address] [address] [place] [address] Prior Authorization (Ubrelvy ) Social History Tobacco [...] Telephone Encounter - Monique Isaac RN - 08/17/2021 6:00 PM EDT Images from the original note were not included. * Telephone Encounter - Monique Isaac RN - 08/17/2021 5:42 PM EDT Emilee Abebe (Parsons: [id number]) Rx #: [id number] Ubrelvy 100MG tablets Form: [facility] Electronic Prior Authorization Form (2017 NCPDP) Created: 1 day ago Sent to Plan: 7 minutes ago Plan Response: 6 minutes ago Submit Clinical Questions: less than a minute ago Determination: Wait for Determination Please wait for [facility] 2017 NCPDP to return a determination. documented in this encounter Plan of Treatment Not on file documented as of this encounter Visit Diagnoses Not on filedocumented in this encounter Care Teams Service Supervisor Relationship Specialty Start Date End Date Dina Diaz PA [address] [place] [address] [place] [address] PCP - General Internal Medicine 05/26/20 documented as of this encounter
--- OUTSIDE RECORDS SUMMARY | 2023-10-04 01:06 | XMS_ITS | Encounter Summary ---
[place] [address] Care Team Providers Care Oleo Hasher And Renderer Name Role Phone Dina Diaz Primary Care Provider + Reason for Visit * Reason Comments Prior Authorization Aimovig 140mg/mL SOA J Encounter Details Date Type Department Care Team (Late st Contact Info) Description 08/19/2021 Specialty [place] [address] Citlaly Buchanan, [employer] Social History Tobacco Use Types Packs/Day Years [...] of this encounter Progress Notes * Citlaly Buchanan - 08/19/2021 10:10 AM EDT [facility], Medication Prior Authorization Submission Patient: Emilee Wilhelm Patient : 1970 Patient Address: [place] [address] (home) Medication Name: AIMOVIG AUTOINJECTOR 140 MG/ML SUBCUTANEOUS AUTO-INJECTOR Medication ID: Subscriber Insurance: Unable to find Subscriber Insurance Comment: [employer](IRX) Fax: Physician: GLEN BROWN I Physician Comment: Sent Via: CMM Parsons: PARSONS: [id number] Ref/Case/PA#: NA Medication Strength Frequency Requested: Aimovig/140mg/30 Qty/Day Supply: 03/28 New Start: New to Therapy Diagnosis & ICD-10 Code: Chronic Migraines Patient Notified: Left Voicemessage Submission Notes: RX#[id number] PA SUBMITTED VIA [facility] (PARSONS: [id number]). LVM FOR PATIENT IN REGARDS TO PA TIMELINE FRAME FOR AIMOVIG. DOCUMENTING IN EDH. Citlaly Buchanan 08/19/21 10:12 AM * Citlaly Buchanan - 08/19/2021 10:10 AM EDT [facility], Prior Authorization Approval Medication Name: AIMOVIG AUTOINJECTOR 140 MG/ML SUBCUTANEOUS AUTO-INJECTOR Medication ID: Approval Dates: 08/19/2021 to 02/18/2022 Insurance requirements/notes: DHRX#[id number] Patient must fill at [email or web address] or [email or web address] in order for insurance to cover the copay cost. Other Notes: RX#[id number] PA APPROVED VIA [facility] FOR AIMOVIG: REQUEST REFERENCE NUMBER: [id number]. AIMOVIG INJ 140MG/ML IS APPROVED THROUGH 02/18/2022. YOUR PATIENT MAY NOW FILL THIS PRESCRIPTION AND IT WILL BE COVERED. CLAIM GOES THROUGH FOR $626.97 UNLESS PATIENT FILLS AT [facility] OR [employer]. DOCUMENTING IN EDH. Case/Reference #: NA Approval notification Received via: [facility] Copay: $626.97 Copay assistance: None Copay Notes: Patient must fill at [email or web address] or [email or web address] in order for insurance to cover the copay cost. Insurance mandated Pharmacy: [facility] Fillable at [facility] Special[facility] Pharm[facility]: Yes Pharmacy staff will be reaching out to the patient to inform them of their medication's approval bytheir insurance. If applicable, a pharmacist will speak with the patient to offer our specialty pharmacy services and to arrange delivery of their medication. Citlaly Buchanan 08/20/21 8:32 AM documented in this encounter Plan of Treatment Not on file documented as of this encounter Visit Diagnoses Not on filedocumented in this encounter Care Teams Oleo Hasher And Renderer Relationship Specialty Start Date End Date Dina Diaz PA [address] [place] [address] [place] [address] PCP - General Internal Medicine 05/26/20 documented as of this encounter
--- OUTSIDE RECORDS SUMMARY | 2023-10-04 01:06 | XMS_ITS | Encounter Summary ---
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 [x]? Oxycodone [x]? Oxycodone/Acetaminophen (Percocet) ?? Procedures: []? Auriculotemporal blocks []? Lumbar puncture []? Occipital nerve blocks []? Sphenopalatine ganglion blocks []? Supraorbital blocks []? Trigger point injections ?? Neuromodulation: []? Cefaly []? nVNS/Gammacore []? Nerivio Migra []? Spring TMS []? Relivion ?? Non-pharmacologic Tx []? Acupuncture []? Acupressure []? Biofeedback [x]? Vessel Builder []? Cognitive Behavioral Therapy []? Massage therapy []? Physical therapy []? Craniosacral therapy * Cb Abbott MD - 08/16/2021 12:30 PM EDT Attending Note 08-16-21 I evaluated the patient with Dr. Dempsey. I have reviewed the fellow's history, and I agree with the details as written. The assessment and plan were formulated in discussion with me, and I agree with them as documented. Patient understands and accepts our plan. 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 She has bipolar, PTSD, hypothyroidism, YAHIR, LBP, MDD, and RANDAL. 1st BTX was 07/30/21 and she did not like it due to the multiple injections, and she does not wish to continue. She will be switched to erenumab. Cb Abbott MD * Summer Dempsey MD - 08/16/2021 12:30 PM EDT MONOCLONAL ANTIBODY Note [facility] Patient name: Emilee Wilhelm Date of : 1970 Patient Dx: [x] G43.7 chronic migraine without aura [] G43.9 episodic migraine without aura [] G43.0 migraine with aura Medication being requested: [x] Aimovig [] AJOVY [] Emgality [facility] Wilhelm has had a lack of success with each of the three most effective anti-migraine prevention categories: antidepressants, anti-epilepsy drugs, and antihypertensives as well as Botox. The FDA has approved the use of Aimovig for the prevention of Chronic and Episodic Migraine. Does the patient have a latex allergy? no Allergies Allergen Reactions ??? Abilify [Aripiprazole] Other (See Comments) hallucinations ??? Nurtec Odt [Rimegepant] Rash ??? Morphine Sulfate Nausea And Vomiting ??? Amitriptyline Hcl ??? Hydrocodone ??? Imipramine ??? Oxycodone Hcl ??? Soy ??? Tree Nuts Patient has tried and failed: Medications Tried ([x] checked have been tried in the past) ?? Anti-seizure: []?Acetazolamide (Diamox) [x]?Gabapentin (Neurontin)? [x]?Lamotrigine (Lamictal)?For mood, not helpful []?Levetiracetam (Keppra) []?Sodium Valproate (Depakote) []?Topiramate (Topamax)? []?Zonisamide (Zonegran)? Anti-Depressants: SSRI: [x]?Citalopram (Celexa) [x]?Escitalopram (Lexapro) ? []?Fluvoxamine (Luvox) [x]?Fluoxetine (Prozac) []?Sertraline (Zoloft)? []?Paroxetine (Paxil) SNRI: []?Desvenlafaxine (Pristiq/Khedezla) [x]?Duloxetine (Cymbalta) [x]?Venlafaxine (Effexor) TCA: [x]?Amitriptyline (Elavil) []?Doxepin (Sinequan) [x]?Imipramine (Tofranil) [x]?Nortriptiline (Pamelor) MAOI: Atypicals:? [x]?Bupropion (Wellbutrin) [x]?Mirtazapine (Remeron) [x]?Trazodone ?? Anti-Hypertensives: RAZIA Inhibitors: []?Lisinopril (Prinivil)? Angiotensin II Receptor Blockers: []?Candesartan (Atacand) Beta Blockers []?Atenolol (Tenormin) [x]?Bisoprolol (Zebeta) []?Metoprolol (Lopressor) []?Nadolol (Cogard) []?Propranolol (Inderal)? []?Timolol?? Calcium Channel Blockers: []?Amlodipine ??(Norvasc) []?Diltiazem (Cardiazem) []?Verapamil Alpha-1 Blockers Diuretics: ?? Monoclonal Antibodies: []?Erenumab (Aimovig) []?Fremanezumab (Ajovy) []?Galcanezumab (Emgality) []?Eptinezumab (Vyepti) ?? Other Headache Management: ? []?Memantine (Namenda) []?Montelukast (Singulair) [x]?OnabotulinumtoxinA (Botox) 07/30/21, SE: painful ?? Ergotamines: []?Dihydroergotamine nasal spray (Migranal)? []?Dihydroergotamine solution for injection (DHE-45) ? Triptans: [x]?Sumatriptan (Imitrex) PO?SE: Very sedating []?Sumatriptan (Imitrex) NS []?Sumatriptan (Tosymra) NS []?Sumatriptan (Imitrex) SQ injection []?Sumatriptan (Onzetra) Nasal powder []?Sumatriptan/Naproxen (treximet)? []?Eletriptan (Relpax)? []?Zomig nasal spray []?Zolmitriptan (Zomig) ? [x]?Rizatriptan (Maxalt)?Us ually not helpful []?Almotriptan (Axert)? []?Naratriptan (Amerge)? []?Frovatriptan (Frova)? Ditan: []?Lasmiditan (Reyvow) ?? 2nd Generation gePANTS: []?Ubrelvy (Ubrogepant) []?Nurtec (Remigepant)? Supplements: ? []?Coenzyme Q10 []?Feverfew ? []?Magnesium []?Melatonin []?Vit. B2 (riboflavin)? NSAIDS: ? [x]?Aspirin []?Celecoxib (Celebrex) []?Diclofenac potassium [x]?Ibuprofen (Advil) []?Indomethacin []?Ketoprofen []?Ketorolac (Toradol) []?Meloxicam (Mobic) []?Nabumetone? [x]?Naproxen sodium (Aleve) ? [x]?Acetaminophen (tylenol) ?? Combination Analgesics: [x]?Acetaminophen/aspirin/caffeine (Excedrin/Pamprin) ?? Anti-Histamines: []?Cyproheptadine (Periactin) [x]?Diphenhydramine (Benadryl) []?Hydroxyzine (vistaril/atarax) ?? Anti-emetics: []?Aprepitant (Emend) []?Granisetron []?Metoclopramide (Reglan) []?Ondansetron (Zofran) []?Meclizine (Bonine) [x]?Prochlorperazine (compazine) []?Promethazine (Phenergan) []?Chlorpromazine (thorazine) ?? Muscle relaxers: []?Baclofen (lioresal) [x]?Cyclobenzaprine (flexeril) []?Metaxalone (skelaxin) []?Methocarbamol (robaxin) []?Tizanidine (zanaflex) ?? Steroids: []?Dexamethasone (decadron) []?Prednisone ?? Benzodiazepines: ? Opioids/Narcotics/Controlled Substances: []?Ketamine [x]?Marijuana [x]?Oxycodone [x]?Oxycodone/Acetaminophen (Percocet) ?? Procedures: ? []?Auriculotemporal blocks ? []?Lumbar puncture []?Occipital nerve blocks []?Sphenopalatine ganglion blocks []?Supraorbital blocks ? []?Trigger point injections ?? Neuromodulation: []?Cefaly []?nVNS/Gammacore []?Nerivio Migra []?Spring TMS []?Relivion ?? Non-pharmacologic Tx []?Acupuncture []?Acupressure []?Biofeedback [x]?Vessel Builder []?Cognitive Behavioral Therapy []?Massage therapy []?Physical therapy []?Craniosacral therapy For CHRONIC Migraine Patients: Does the patient have medication overuse headache? [x] YES [] NO *If YES, the treatment plan will include tapering off the offending medications Does the patient have ? 15 BARRERA days per month, of which at least 8 must be migraine days? [x] YES [] NO How many migraine days per month is patient experiencing? 30/30 How long do the migraines last? continuous How long has the patient had this diagnosis? Age 21 Has patient tried and failed Botox? [x] YES [] NO Will patient be receiving both Botox and Aimovig simultaneously? [] YES [x] NO Will patient be receiving both Aimovig and another monoclonal antibody? [] YES [x] NO Patient Reported: MIDAS Responses 08/16/2021 Days missed school/work 8 Days productivity at work/school reduced 90 Days did not do household work 25 Days productivity related to housework reduced 65 Days missed family, social or leisure activities 90 Days had headache 90 Pain scale 7 MIDAS Score 278 (MIDAS grade IV, severe disability) MIDAS Adjusted Score - documented in this encounter Plan of Treatment Not on file documented as of this encounter Visit Diagnoses Diagnosis Chronic migraine without aura, not intractable, without status migrainosus Migraine with aura and without status migrainosus, not intractable Migraine with aura, without mention of intractable migraine without mention of status migrainosus documented in this encounter Care Teams Wood Carving Machine Operator Relationship Specialty Start Date End Date Dina Diaz PA [address] [place] [address] [place] [address] PCP - General Internal Medicine 05/26/20 documented as of this encounter
--- OUTSIDE RECORDS SUMMARY | 2023-10-04 01:06 | XMS_ITS | Encounter Summary ---
Author Organization [facility] [place] [address] Care Team Providers Care Director Of Program Management Name Role Phone Dina Diaz Primary Care Provider + Reason for Visit * Auth/Cert (Routine) Specialty Diagnoses / Procedures Referred By John almarza Referred To Contact Diagnoses Dyspareunia due to medical condition in female Difficulty voiding Dyspareunia; difficulty voiding, Urge UI Procedures PRO REMV/REVS SLING FOR STRES INCONTINENCE PRO INJECT TRIGGER POINT, 1 OR 2 SLING, REVISEOR REMOVE, REPLACE, VAGINALAPPROACH, SYNTHETIC\FASCIA (WRVU 11.15) INJECTION,SINGLE OR MULTIPLE TRIGGER POINTS (WRVU 0.66) Abundio Adams MD [facility]ST[facility] [place] [address] [facility] Referral ID Status Reason Start Date Expiration Date Visits Re quested Visits Authorized [id number] 1 1 Encounter Details Date Type Department Care Team (Latest Contact Info) Description 03/15/2022 8:00 AM EST - 03/15/2022 11:16 AM EST Hospital Encounter [place] [address] Abundio Adams MD [facility] [place] [address] Stress incontinence, female Discharge Disposition: Home Social History Tobacco Use [...] Dept Phone 04/27/2022 9:40 AM Christina Dove, LAYOUT DESIGNER; Abundio Adams MD Obstetrics and Gynecology at [facility] Arrive at: Haul Truck Driver Area 5L [phone] Patient Discharge Instructions: Special Physician Instructions: If you are still needing a catheter to drain your bladder, please follow the instructions given to you separately for when to use the catheter and how to care for it. In addition, please call to check in with the urogynecology office nurse at [phone] to review how your bladder is working and when the catheter use can be discontinued. For problems, concerns related to this hospitalization or you need to change your appointment call: [facility] daytime: [phone] [facility]: [phone] [facility]: [phone] For emergencies during nights and weekends: [phone] Call your doctor if you develop: --A [...] azelastine (ASTELIN) 137 mcg (0.1 %) Aerosol, [place] Every 12 hours. 03/17/2020 hydrOXYzine (Atarax) 10 [...] spasm, # 30 tab, 0 Refill(s), Pharmacy: [id number], 165, cm, 08/14/21 10:33:00 [...] in this encounter H&P Notes * Abundio Aadms MD - 03/15/2022 8:19 AM EST Patient [...] SYNTHETIC performed by Abundio Adams MD at [facility] MAIN OR ??? ROTATOR CUFF REPAIR Left [...] sedation if possible. She does have her [id number] here who can drive her home in the event she needed sedation. ABUNDIO ADAMS MD documented in this encounter Miscellaneous Notes * Brief Op Note - Abundio Adams MD - 03/15/2022 9:53 AM EST Brief Operative Note Patient Name: Emilee Abebe : [id number] MR#: [id number] Case Date: 03/15/2022 Surgeon: Surgeon(s) and Role: [...] SPECIMEN TO PATHOLOGY [place]rethral [place]--[place] [address] Dyspareunia; difficulty voiding, Urge UI urethral sling--gross [...] Adams MD - 03/15/2022 9:15 AM EST [facility] Operative Note Patient Name: Emilee Abebe : [id number] MR#: [id number] Case Date: 03/15/2022 Surgeon: Surgeon(s) and Role: [...] PATHOLOGY ?? Urethral sling--[place] 23 [address] Dyspareunia; difficulty voiding, Urge UI urethral sling--gross [...] 21 gauge spinal needle, inserted into an [place] trumpet and the right puborectalis, pubococcygeusmuscles were [...] EST Inject Trigger Point, 1 Or 2 (97152) 03/15/2022 8:52 AM EST Dyspareunia; difficulty voiding, Urge UI Remv/Revs Sling For Stres Incontinence ([id number]) 03/15/2022 8:52 AM EST Dyspareunia; difficulty voiding, Urge UI SLING, REVISE\REMOVE\REPLACE \VAGINAL APPROACH\SYNTHETIC\FA SCIA Routine 03/15/2022 8:03 AM EST INJECTION,SINGLE OR MULTIPLE TRIGGER POINTS Routine 03/15/2022 8:03 AM EST documented in this encounter Results * Surgical Pathology Report (03/15/2022 9:39 AM EST) Final Diagnosis [id number] ? Location: [facility]; [facility]; The signing pathologist has (i) examined the relevant preparation(s) for the specimen(s) and (ii) rendered or confirmed the diagnosis(es). . ?Surgical Pathology DIAGNOSIS A - Urethral sling, gross only (excision): ??- Benign fibromuscular tissue with mild chronic inflammation. Electronically signed by: ?Monique Barajas MD Verified: ??03/17/2022 12:59 ??Pathologist Performed at: ??-[facility] Dept. of Pathology, [place] [id number] Manager Personnel Selection: Wagner Juarez MD, FCAP, ??CLIA Certificate: [id number] SPECIMEN(S) SUBMITTED A - Urethral sling-gross only, excision (1) CLINICAL INFORMATION Dyspareunia; difficulty voiding, urge UI. SPECIMEN PROCESSING A - Labeled/Fixative: Urethral sling-gross only, fresh. Quantity/Size: Two, 0.6 x 0.4 x 0.4 cm and 1.3 x 1.0 x 0.2 cm. Tissue Description: Fragments of blue mesh with minimal attached pink-bonner soft tissue. Sections/Processi ng: Programming Coordinator attached soft tissue is submitted in 1 cassette labeled A1. ??jnr 03/17/2022 12:59 PM EST [facility] URETHRAL STRUCTURE / Unknown 03/15/2022 9:39 AM EST 03/15/2022 9:39 AM EST Abundio Adams MD PATHOLOGY/CYTOLOGY O RDCYNBLES [facility] [address] [place] [address] * Specimen to Pathology (03/15/2022 9:39 AM EST) AP Specimen 03/15/2022 9:39 AM EST 03/15/2022 9:39 AM EST Narrative [facility] - 03/15/2022 9:39 AM EST Specimen requisition ordered. ??Separate Pathology report to follow Abundio Adams MD PATHOLOGY/CYTOLOGY O AIDE [facility] [place] [address] documented in this encounter Visit Diagnoses Diagnosis Stress incontinence, female Female stress incontinence documented in this encounter Administered Medications documented in this encounter Active and Recently Administered Medications Times are shown in EST. Scheduled Medication Order 03/13/2022 03/14/2022 03/15/2022 ceFAZolin (Ancef) 2 g vial attach to sodium chloride 0.9% 100 mL Mini-Bag Plus (COMPLETED) 2 g, Intravenous, ONCE, 1 dose, On Mon03/15/22 at 0830, Administer over 30 Minutes, Riveter Helper to OR Infuse over 30 minutes., Day [...] Until Mon03/15/22 at 1316, Intra-Operative (Intra-Procedure), Routine 0938 (Given - Provid er: Abundio Adams MD) triamcinolone acetonide (Kenalog-40) (40 mg/mL) injection (CANCELED) ONCE PRN, Starting on Mon03/15/22 at 0936, Until Mon03/15/22 at 1316, Intra-Operative (Intra-Procedure), Routine 0936 (Given - Provid er: Abundio Adams MD - Comment: 9 mL 0.25% bupivicaine mixed with 1mL 40 mg/mL triamcinolone.) documented in this encounter Care Teams Director Of Program Management Relationship Specialty Start Date End Date Dina Diaz PA [address] [place] [address] [place] [address] PCP - General Internal Medicine 05/26/20 documented as of this encounter
--- OUTSIDE RECORDS SUMMARY | 2023-10-04 01:06 | XMS_ITS | Encounter Summary ---
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 aguilera full to confrontation Fundoscopic Exam: optic discs crisp, venous pulsations present Facial sensation intact to light touch, temperature No facial asymmetry Hearing intact to voice Palate elevates symmetrically, tongue protrudes midline SCM and trap strength intact Motor: Normal bulk and tone. No pronator drift. Hand rolling intact. UE: 5/5 R, 5/5 L Arm abduction at shoulder 5/5 R, 5/5 L Elbow extension 5/5 R, 5/5 L Elbow flexion 5/5 R, 5/5 L King Maker LE: 5/5 R, 5/5 L Hip flexion 5/5 R, 5/5 L Knee extension 5/5 R, 5/5 L Knee flexion 5/5 R, 5/5 L Foot dorsiflexion 5/5 R, 5/5 L Foot plantar flexion Sensation: Intact to light touch, temperature throughout Reflexes: DTRs 2+ R, 2+ L Biceps 2+ R, 2+ L Brachioradialis 2+ R, 2+ L Patellar Toes R down, L down Coordination: Finger to nose intact, no dysmetria Heel-baker intact No tremor Gait: Normal stride, stance, armswing. Stable. Negative Romberg. Assessment / Plan: Emilee Wilhelm is a 50 y.o. with a PMH of chronic pain disorder (fibromyalgia), sleep disorder,hypothyroidism, HLD, kidney disease (CHARLA vs CKD?), mild YAHIR (not on CPAP), anxiety, Bipolar disorder, and PTSD who presents for evaluation of headaches. History and examination is consistent with a diagnosis of chronic migraine and migraine with aura with associated visual changes. 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 It is concerning that headaches have changed with new onset aura. Workup imaging in the ED was unremarkable, patients report of Scar tissue on MRI may represent nonspecific white matter changes vs underlying pathology. We will obtain prior imaging studies for evaluation or will repeat studies. She is also in medication overuse due to her daily use of acetaminophen and ibuprofen. This patient meets the FDA criteria for Chronic Migraine, with headache at least 15 days per month,at least 4 hours per day (her are 30/30 BARRERA days a month). she has unsuccessfully tried at least 27 medications, and has had lack of success with each of the big anti-migraine prevention categories: antidepressants, antihypertensives, and anti-epilepsy drugs. I will start her on Botox for migraine prevention. For breakthrough treatment, I will start her on rimegepant. Triptans and ergots are contraindicateddue to the concern for hemiplegic migraine, so will use gepants instead as they do not have vasoconstrictive properties. Will use baclofen and prochlorperazine for adjunct. Of note, given concern for migraine with aura and hemiplegic aura, medications should be reviewed for those that can increase stroke risk. She is not on estrogen-containing control, is a non-smoker, and not taking triptan medications. ICD-10-CM 1. Intractable chronic migraine without aura and without status migrainosus G43.719 2. Migraine with aura and without status migrainosus, not intractable G43.109 CBC (with Diff) Comprehensive metabolic panel (non-fasting) T4, free TSH TSH T4, free Comprehensive metabolic panel (non-fasting) CBC (with Diff) 3. Chronic migraine without aura, not intractable, without status migrainosus G43.709 CBC (with Diff) Comprehensive metabolic panel (non-fasting) T4, free TSH Onabotulinumtoxin A (BOTOX) Authorizations Request (IN CLINIC) TSH T4, free Comprehensive metabolic panel (non-fasting) CBC (with Diff) 4. Medication overuse headache G44.40 Workup: - check CBC, CMP, TSH, T4 - Obtain prior workup - FMLA paperwork Prevention: - Botox injections Q12 wks Breakthrough: - Nurtec 75 mg - Baclofen 10 mg - Compazine 10 mg Rescue: - TBD: ONB / TPI Discontinue: - Tylenol - Ibuprofen Future Considerations: - MAB Patient is interested in being contacted about research opportunities within the headache clinic: no Time spent today 06/29/2021 with this patient and in preparation for this visit: 90 min Including: Preparing to see the patient, Obtaining and/or reviewing separately obtained history , Performing a medically appropriate examination and/or evaluation , Counseling and educating the patient/family/caregiver, Ordering medications, tests, or procedures, Referring and communicating with other health tire care manager and Documenting clinical information in the electronic or other healthrecord Summer Dempsey MD Headache Fellow, [facility] [phone] 06/29/2021 * Yudith Abbott MD - 06/29/2021 12:30 PM EDT I certify that I have seen Emilee Wilhelm on 06/29/[address] Dempsey, Headache Fellow. The note reflects the patient's history of presentation, physical findings. The assessment and plan were formulated together in discussion and I have personally reviewed all studies. Ms. Wilhelm is a 50 year old woman with a history of migraine with and without aura, sleep apnea, hypothyroidism, PTSD, and bipolar disorder. She has had migraines since young adulthood but in the past 2 years these have become daily at an 8-9/10 intensity. Beginning May 25, 2021 began to get a visual aura consisting of a big black spot in her vision before these migraines. She also says she was getting 6 hours of right-sided paralysis 1-2 days per week, along with difficulties with speech and understanding before the migraines. The headaches can be on either side and have typical migraine features of photophobia, phonophobia, and nausea. She underwent a CT and CTA for evaluation of these symptoms, and reportedly these were normal. She also had an MRI at an outside facility that showed scars on my brain (report unavailable). Her exam today was normal. Currently she is taking acetaminophen and ibuprofen bid daily and has been doing this since 2017. She has been under a lot of stress lately from work and taking care of her [facility]. 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 This would be a relatively rare disorder though and would need a witnessed attack with neurologic exam during the attack to be certain of such a diagnosis. She also has analgesic overuse headaches and has been advised to stop the daily ibuprofen and acetaminophen which is almost certainly contributing to her headache condition. She declined any self injected MAB, and would prefer a trial of Botox for migraine prevention whichwill be applied for today. Paperwork was submitted to get the MRI and imaging reports. Per imaging report description today, this may have been white matter findings often seen in those with chronic migraine. She cannot use triptans until the question of hemiplegic migraine is clarified, and will use gepants for acute treatment instead. Yudith Abbott MD [facility] Neurology * Summer Dempsey MD - 06/29/2021 12:30 PM EDT OnabotulinumtoxinA (Botox) Checklist [facility] Neurology Headache Clinic Patient name: Emilee Wilhelm Date of : 1970 Patient Dx: [x] G43.7 chronic migraine without aura [] G43.0 migraine without aura [] G43.1 migraine with aura Medication being requested: [x] OnabotulinumtoxinA Emilee Wilhelm has had a lack of success with each of the three most effective anti-migraine prevention categories: antidepressants, anti-epilepsy drugs, and antihypertensives. The FDA has approved the use of onabotulinumtoxinA (Botox) for the prevention of Chronic Migraine. Patient has tried and failed: Medications Tried ([x] checked have been tried in the past) Medications Tried ([x]? checked have been tried [...] Management: []? Memantine (Namenda) []? Montelukast (Singulair) []? OnabotulinumtoxinA (Botox) ?? Ergotamines: []? Dihydroergotamine nasal spray (Migranal) [...] []? Acupuncture []? Acupressure []? Biofeedback [x]? Head Of Store Operations []? Cognitive Behavioral Therapy []? Massage therapy []? Physical therapy []? Craniosacral therapy For First-Time Botox: Does the patient have medication overuse headache? [x] YES [] NO *If YES, the treatment plan will include tapering off the offending medications Does the patient have ? 15 BARRERA days per month, of which at least 8 must be migraine days? [x] YES [] NO How many migraine days per month is patient experiencing? 30/30 days How long do the migraines last? continuous How long has the patient had this diagnosis? >20 years Will patient be receiving both Botox and Aimovig simultaneously? [] YES [x] NO This patient meets the FDA criteria for Chronic Migraine, with headache at least 15 days per month,at least 4 hours per day. She has unsuccessfully tried at least 27 medications, and has had lack ofsuccess with each of the big three anti-migraine prevention categories, antidepressants, anti-epilepsy drugs, and antihypertensives. The only FDA approved medications for Chronic Migraine are Botox, Emgality, AJOVY, Aimovig and Vypeti . Patient Reported/Provider Adjusted: MIDAS ADJUSTED SCORE 06/29/2021 On how many days in the last three months did you have a headache? (If a headache lasted more than a day, count each day) 90 On a scale of 0 to 10, on average, how painful were those headaches? (0 = no pain at all and 10 = the worst pain you can imagine) 9 1. On how many days in the last three months did you miss work or school because of your headaches?10 2. How many days in the last [...] children and relatives) because of your headaches? 15 4. How many days in the last three months was your productivity related to household work reduced by half or more because of your headaches? (Do not include days you counted in question 3 where you did not do household work) 20 5. On how many days in the last three months did you miss family, social, or leisure activities because of your headaches? 40 MIDAS Adjusted Score 130 documented in this encounter Plan of Treatment Not on file documented as of this encounter Procedures Procedure Name Priority Date/Time Associated Diagnosis Comments HEMOGRAM Routine 06/29/2021 2:08 PM EDT Migraine with aura and without status migrainosus, not intractable Chronic migraine without aura, not intractable, without status migrainosus DIFFERENTIAL, AUTOMATED Routine 06/29/2021 2:08 PM EDT Migraine with aura and without status migrainosus, not intractable Chronic migraine without aura, not intractable, without status migrainosus HC CBC,PLT & AUTO DIFF Routine 2 2:08 PM EDT Migraine with aura and without status migrainosus, not intractable Chronic migraine without aura, not intractable, without status migrainosus HC THYROID STIMULATING HORMONE, SERUM Routine 06/29/2021 2:08 PM EDT Migraine with aura and without status migrainosus, not intractable Chronic migraine without aura, not intractable, without status migrainosus HC FREE THYROXINE (T4) Routine 2 2:08 PM EDT Migraine with aura and without status migrainosus, not intractable Chronic migraine without aura, not intractable, without status migrainosus COMPREHENSIVE METABOLIC PANEL Routine 06/29/2021 2:08 PM EDT Migraine with aura and without status migrainosus, not intractable Chronic migraine without aura, not intractable, without status migrainosus documented in this encounter Results * Differential, Automated (06/29/2021 2:08 PM EDT) Neutrophil % 52.0 % [facility] Neutrophil Absolute 3.94 1.70 - 6.10 x10(3)/[facility] Lymph % 35.0 % [facility] Lymphocytes Abs 2.7 0.9 - 3.2 x10(3)/[facility] Monocyte % 9.5 % [facility] Monocyte Abs 0.7 0.3 - 0.9 x10(3)/[facility] Eos % 2.9 % [facility] Eosinophils Abs 0.2 0.0 - 0.4 x10(3)/[facility] Basophil % 0.5 % [facility] Baso Absolute 0.0 0.0 - 0.1 x10(3)/[facility] Immature Gran % 0.10 % [facility] Comment: Immature granulocytes(IG's)percentage and absolute count will include metamyelocytes, myelocytes, and promyelocytes. Blood smears from CBCs yielding IG's will be scanned manually for concordance. If this scan disagrees with the automated IG or if promyelocytes are noted, a manual differential will be performed. Immature Gran Absolute 0.01 0.00 - 0.04 x10(3)/[facility] Blood 06/29/2021 2:08 PM EDT 06/29/2021 3:47 PM EDT Narrative Resulting Agency Comment Spec In Lab Summer Mccartney MD HEMATOLOGY ORDERABLE S [facility] [place] [address] * Hemogram (06/29/2021 2:08 PM EDT) White Blood Cell 7.6 4.0 - 9.5 x10(3)/[facility] Red Blood Cell 4.74 4.00 - 5.21 x10(6)/[facility] Hemoglobin 14.0 11.7 - 15.5 g/dL [facility] Hematocrit 42.8 35.7 - 45.8 % [facility] Mean Cell Volume 90.3 82.6 - 94.4 fL [facility] Mean Cell Hemoglobin 29.5 27.1 - 32.0 pg [facility] Mean Cell Hemoglobin Concentration 32.7 31.7 - 35.0 g/dL [facility] Platelet 301 145 - 357 x10(3)/[facility] RDW Standard Deviation 42.0 37.0 - 46.0 fL [facility] RDW coefficient of variation 12.6 11.5 - 14.1 % [facility] Mean Platelet Volume 8.9 7.6 - 12.9 fL [facility] NRBC% auto 0.0 % [facility] NRBC Absolute 0.000 0.000 - 0.000 x10(3)/mcL [facility] Blood 06/29/2021 2:08 PM EDT 06/29/2021 3:47 PM EDT Narrative Resulting Agency Comment Spec In Lab Summer Mccartney MD HEMATOLOGY ORDERABLE S Performing Organization Address [facility] Co de Phone Number [facility] [place] [address] * TSH (06/29/2021 2:08 PM EDT) Thyroid Stimulating Hormone 0.51 0.27 - 4.20 mcIU/mL [facility] Comment: Reference Interval (mcIU/mL): Females: ??First Trimester: 0.23-3.88 ??Second Trimester: 0.22-3.90 ??Third Trimester: 0.44-4.66 Blood 06/29/2021 2:08 PM EDT 06/29/2021 6:50 PM EDT Narrative Resulting Agency Comment Spec In Lab Summer Mccartney MD CHEMISTRY ORDERABLES Performing Organization Address [facility] de Phone Number [facility] [place] [address] * T4, free (06/29/2021 2:08 PM EDT) Free T4 1.28 0.93 - 1.70 ng/dL [facility] Comment: Reference Interval (ng/dL): Females: ??First Trimester: 0.97-1.68 ??Second Trimester: 0.77-1.51 ??Third Trimester: 0.77-1.49 Blood 06/29/2021 2:08 PM EDT 06/29/2021 6:50 PM EDT Narrative Resulting Agency Comment Spec In Lab Summer Mccartney MD CHEMISTRY ORDERABLES [facility] [place] [address] * (ABNORMAL) Comprehensive metabolic panel (non-fasting) (06/29/2021 2:08 PM EDT) Glucose 95 65 - 199 mg/dL [facility] Comment:Diabetes: >=200 mg/d L plus symptoms Blood Urea Nitrogen 19(H) 8 - 18 mg/dL [facility] Creatinine 0.66(L) 0.70 - 1.20 mg/dL [facility] Sodium 137 135 - 145 mmol/L [facility] Potassium 4.5 3.5 - 5.0 mmol/L [facility] Comment: Please note: ??Patients with WBC >100,000 may have falsely elevated Potassium levels. ??For accurate Potassium quantification in these patients send serum separator tube (gold top) for subsequent determinations. ??Contact the Clinical Chemistry Laboratory if there are any questions. Chloride 100 98 - 107 mmol/L [facility] Carbon Dioxide 27 22 - 31 mmol/L [facility] Anion Gap 10 5 - 15 mmol/L [facility] Calcium 9.3 8.5 - 10.5 mg/dL [facility] Protein, Total 7.2 6.1 - 8.0 g/dL [facility] Albumin 4.7 3.2 - 5.2 g/dL [facility] Aspartate Aminotransferase 14 0 - 30 unit/L [facility] Alanine Aminotransferase 15 0 - 30 unit/L [facility] Alkaline Phosphatase 69 35 - 105 unit/L [facility] Bilirubin, Total 0.3 0.2 - 1.3 mg/dL [facility] Est Glomerular Filtration Rate 104 >=60 mL/min/1. 73 m?? [facility] Comment: This patient? s estimated glomerular filtration rate (eGFR) is between 104 mL/min/1.73 m2 (patients with less muscle mass) and 120 mL/min/1.73 m2 (patients with more muscle mass) as determined by the CKD-EPI equation. Assessment of eGFR is not appropriate when creatinine concentrations are rapidly changing. For clinical decisions where creatinine clearance will affect therapy, a 24-hour urine creatinine clearance may be advised. Assignment of CKD stage 1 - 5 for patients with an eGFR near the transition point between stages may be based on clinical assessment of muscle mass and symptoms in addition to eGFR. Blood 06/29/2021 2:08 PM EDT 06/29/2021 6:50 PM EDT Narrative Resulting Agency Comment Spec In Lab Summer Mccartney MD CHEMISTRY ORDERABLES [facility] [place] [address] documented in this encounter Visit Diagnoses Diagnosis Intractable chronic migraine without aura and without status migrainosus Chronic migraine without aura, with intractable migraine, so stated, without mention of status migrainosus Migraine with aura and without status migrainosus, not intractable Migraine with aura, without mention of intractable migraine without mention of status migrainosus Chronic migraine without aura, not intractable, without status migrainosus Medication overuse headache Drug induced headache, not elsewhere classified documented in this encounter Care Teams Precision Lens Polisher Relationship Specialty Start Date End Date Dina Diaz PA [address] [place] [address] [place] [address] PCP - General Internal Medicine 05/26/20 documented as of this encounter
--- OUTSIDE RECORDS SUMMARY | 2023-10-04 01:06 | XMS_ITS | Encounter Summary ---
[place] [address] Care Team Providers Care Balcony Worker Name Role Phone Dina Diaz Primary Care Provider + Encounter Details Date Type Department Care Team ([facility] st Contact Info) Description 04/13/2022 External Results Pre-Admission Testing at [facility] [address] [place] [address] Social History Tobacco Use Types Packs/Day Years [...] Procedure Name Priority Date/Time Associated Diagnosis Comments LAB SCAN Routine 04/08/2022 ECG SCAN Routine 04/08/2022 documented in this encounter Results * Scan Doc: Lab (04/08/2022) Historical Provider MD GORMAN MGJaime SCAN EX T ORDR/RSLT * Scan Doc: ECG (04/08/2022) Historical Provider MEDIA MGR SCAN EX T ORDR/RSLT documented in this encounter Visit Diagnoses Not on filedocumented in this encounter Care Teams Balcony Worker Relationship Specialty Start Date End Date Dina Diaz PA [address] [place] [address] [place] [address] PCP - General Internal Medicine 05/26/20 documented as of this encounter
--- OUTSIDE RECORDS SUMMARY | 2023-10-04 01:06 | XMS_ITS | Encounter Summary ---
Author Organization [facility] [place] [address] Care Team Providers Care Start Up Specialist Name Role Phone Dina Diaz Primary Care Provider + Encounter Details Date Type Department Care Team (Latest Contact Info) Description 02/03/2022 Travel Social History Tobacco Use Types Packs/Day [...] on filedocumented in this encounter Care Teams Start Up Specialist Relationship Specialty Start Date End Date Dina Diaz PA [address] [place] [id number] PCP - General Internal Medicine 05/26/20 documented as of this encounter
--- OUTSIDE RECORDS SUMMARY | 2023-10-04 01:06 | XMS_ITS | Encounter Summary ---
[place] [address] Care Team Providers Care Take Up Operator Name Role Phone Dina Diaz Primary Care Provider + Encounter Details Date Type Department Care Team (Late st Contact Info) Description 11/24/2021 10:30 AM EDT Office Visit Neurology at [address] [phone] Sanaz Aburto APRN [facility] [place] [address] Chronic migraine without aura, not intractable, without [...] Sign Reading Time Taken Comments Blood Pressure 89/61 11/24/2021 10:20 AM EDT Pulse 88 11/24/2021 10:20 AM EDT Temperature - - Respiratory Rate - - Oxygen Saturation - - Inhaled Oxygen Concentration - - Weight 58.1 kg (128 lb) 11/24/2021 10:20 AM EDT Height 166.4 cm (5' 5.5) 11/24/2021 10:20 AM ED T reported Body Mass Index 20.98 11/24/2021 10:20 AM EDT documented in this encounter Progress Notes * Sanaz Aburto Yuriy, AUTOMOTIVE PAINT TECHNICIAN - 11/24/2021 10:30 AM EDT Neurology Headache Clinic Follow-up Patient Name: Emilee Abebe Patient ID: Emilee Abebe is a 51 y.o. right handed female with a history of headaches since young adulthood. She has a PMH of Fibromyalgia, hypothyroidism, HLD, kidney disease, mild YAHIR, anxiety, Bipolar disorder, PTSD and chronic migraine. Interval History: She was seen twice by Dr. Dempsey for Chronic migraine and MOH. She tried 1 round of botox and wasunhappy with the way it felt. Dr. Dempsey suggested Aimovig as an alternative. She he here to establish care with a new provider. Has had 3 doses of Aimovig. Had some initial improvement. Last dose was end of September. Due for #4. +Constipation but is at baseline with BMs. No site reactions. Ubrelvy: 100mg at onset of migraine works well but only gets 10 tablets per month. Met with patient and her . Patient Reported/Provider Adjusted: MIDAS ADJUSTED SCORE 11/24/2021 On how many days in the last three months did you have a headache? (If a headache lasted more than a day, count each day) 75 On a scale of 0 to 10, on average, how painful were those headaches? (0 = no pain at all and 10 = the worst pain you can imagine) 6 1. On how many days in the last three months did you miss work or school because of your headaches?9 2. How many days in the last three months was your productivity at work or school reduced by half or more because of your headaches? (Do not include days you counted in question 1 where you missed work or school) 66 3. On how many days in the last three months did you not do household work (such as housework, homerepairs and maintenance, shopping, caring for children and relatives) because of your headaches? 40 4. How many days in the last three months was your productivity related to household work reduced by half or more because of your headaches? (Do not include days you counted in question 3 where you did not do household work) 15 5. On how many days in the last three months did you miss family, social, or leisure activities because of your headaches? 0 MIDAS Adjusted Score 130 Medications: Current Outpatient Medications Medication Sig Dispense Refill ??? Banophen 50 mg Capsule TAKE 1 CAPSULE BY MOUTH EVERY 6 TO 8 HOURS NEEDED ??? buPROPion XL (Wellbutrin XL) 300 mg Tablet Extended Release 24 hr TAKE 1 TABLET BY MOUTH ONCE DAILY IN THE MORNING FOR 30 DAYS ??? atorvastatin (Lipitor) 20 mg Tablet TAKE 1 TABLET BY MOUTH ONCE DAILY ??? propranoloL (Inderal) 10 mg Tablet Take 10 mg by mouth 2 times daily. ??? erenumab-aooe (Aimovig Autoinjector) 140 mg/mL Auto-Injector Inject 1 mL subcutaneously every 30 days. 1 mL 5 ??? ubrogepant (Ubrelvy) 100 mg Tablet Take 1 tablet by mouth as needed (Take at onset of migraine,can repeat dose in 2 hours. Max dose of 200 mg). 9 tablet 5 ??? prochlorperazine (Compazine) 5 mg Tablet Take 2 tablets by mouth every 8 hours as needed (For headache associated migraine, also for nausea/vomiting). 15 tablet 3 ??? traZODone (Desyrel) 100 mg Tablet Take 100 mg by mouth nightly. ??? 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 Acute Treatments: Triptans: Rizatriptan (Maxalt) Sumatriptan (Imitrex) NSAIDS: Aspirin Ibuprofen (Advil) Naproxen sodium (Aleve) Gepants: Rimegepant (Nurtec) allergic rx Ditans: None Ergotamines: None Anti-emetics/neuroleptics: Prochlorperazine (compazine) Combination/Other Analgesics: Acetaminophen (tylenol) Anti-Histamines: Diphenhydramine (Benadryl) Muscle relaxers: Baclofen (lioresal) Cyclobenzaprine (flexeril) Steroids: None Opioids/Narcotics/Controlled Substances: Acetaminophen/Oxycodone (Percocet) Cannabis Oxycodone Benzodiazepines: None Physical Exam: Patient Vitals for the past 24 hrs: Pulse BP 11/24/21 1020 88 (!) 89/61 58.1 kg (128 lb) General exam: The patient looked well and [...] weakness. Coordination: No evidence of any ataxia. Gait: Normal straightaway gait. TSH Vit D Vit B12 Diagnostic Tests and Imaging: Assessment and Plan: Emilee Abebe is a 51 y.o. right handed female with a history of headaches since young adulthood. She has a PMH of Fibromyalgia, hypothyroidism, HLD, kidney disease, mild YAHIR, anxiety, Bipolar disorder, PTSD and chronic migraine. Chronic migraine/MOH: The patient has had slight interval improvement in disability and frequency of headaches. She has only had 3 doses of Aimovig and is due for her fourth dose. We will continue with her current treatment of Aimovig monthly and Ubrelvy for acute treatment. The patient is having difficulty with work environment and is requesting work accommodations which I think is reasonable. The fluorescent lighting is a known trigger for migraine. I will write the patient a letter for her work limiting the exposure time to fluorescent lighting. I have spent 33 minutes for this visit in face to face time with this patient, documentation and coordination of care. AAMIR Thomas APRN, [facility] Neurology, Headache Clinic documented in this encounter Plan of Treatment Not on file documented as of this encounter Visit Diagnoses Diagnosis Chronic migraine without aura, not intractable, without status migrainosus documented in this encounter Care Teams Take Up Operator Relationship Specialty Start Date End Date Dina Diaz PA [address] [place] [address] [place] [address] PCP - General Internal Medicine 05/26/20 documented as of this encounter
--- OUTSIDE RECORDS SUMMARY | 2023-10-04 01:06 | XMS_ITS | Encounter Summary ---
Author Organization [facility] [place] [address] Care Team Providers Care Student Teacher Name Role Phone Dina Diaz Primary Care Provider + Reason for Visit * Auth/Cert (Routine) Specialty Diagnoses / Procedures Referred By John t Referred To Contact Diagnoses Dyspareunia due to medical condition in female Difficulty voiding Dyspareunia; difficulty voiding, Urge UI Procedures PRO REMV/REVS SLING FOR STRES INCONTINENCE PRO INJECT TRIGGER POINT, 1 OR 2 SLING, REVISEOR REMOVE, REPLACE, VAGINALAPPROACH, SYNTHETIC\FASCIA (WRVU 11.15) INJECTION,SINGLE OR MULTIPLE TRIGGER POINTS (WRVU 0.66) Abundio Griffith MD [facility] OBSTETRICS [place] [address] [facility] Referral ID Status Reason Start Date Expiration Date Visits Re quested Visits Authorized [id number] 1 1 Encounter Details Date Type Department Care Team (Late st Contact Info) Description 03/15/2022 8:59 AM EST Anesthesia [place] [phone] Lalo Denis MD [facility] [place] [address] Ratna [place] [address] Anesthesia Record Procedure Summary Procedure Name Responsible Anesthesiologist Anesthesia Start Time Anesthesia Stop Time SLING, REVISEOR REMOVE, REPLACE, VAGINALAPPROACH, SYNTHETIC\FASCIA (WRVU 11.15) (Midline) Lalo Denis MD 03/15/22 0859 03/15/22 1001 Events Date Time Event Comment 03/15/2022 0817 0850 AN Verify 0850 An Start Data 0855 Anesthesia Ready 0859 Start 0952 an stop data 1000 Recovery or ICU Handoff Yanelis ent care was transferred to the destination unit staff after review of the patient's medical history, current anesthetic/surgical status and plan, according to the Provider Handoff Checklist. 1001 Stop Meds Name Total ceFAZolin (Ancef) 2 g vial attach to sod ium chloride 0.9% 100 mL Mini-Bag Plus 2 g Lactated Ringers 200 mL * Agents Name O2 Air N2O * Blood No blood administrations on file. Lines, Drains, and Airways Type Details Placement Removal Urethral Catheter 03/15/22; 917; Genitourinary surgery, Physician order; indwelling double lumen catheter; latex; 14; inserted at this facility; 1; 5; 10; none; drainage bag to dependent drainage; urethral catheter removed, tubing intact; 03/15/22; 0948 03/15/22 0918 by Cortney Campbell RN 03/15/22947 by Cortney Campbell, RN documented in this encounter Social History Tobacco [...] OR Notes * Anesthesia Postprocedure Evaluation - Lalo Denis MD - 03/15/2022 10:19 AM EST Department of Anesthesiology Post-procedure Note Patient: Emilee Abebe Procedure Summary Date: 03/15/22 Room / Location: [address] MAIN OR Anesthesia Start: 858 Anesthesia Stop: 1001 Procedures: SLING, REVISEOR REMOVE, REPLACE, VAGINALAPPROACH, SYNTHETIC\FASCIA (WRVU 11.15) (Midline) INJECTION,SINGLE OR MULTIPLE TRIGGER POINTS (WRVU 0.66) Diagnosis: (Dyspareunia; difficulty voiding, Urge UI) Surgeons: Abundio Griffith MD Responsible Provider: Anesthesia Type: MAC ASA Status: 3 All Anesthesia Providers: No anesthesia staff entered. Vitals Value Taken Time BP 117/78 03/15/22 1000 Temp 37.5 ??C (99.5 ??F) 03/15/22 0954 Pulse 86 03/15/22 1000 Resp 16 03/15/22 1000 SpO2 100 % 03/15/22 1000 Pain Level 0 03/15/22 0954 Patient Location: PACU/[facility] Level of Consciousness: Awake and Alert Pain Management: Satisfactory Analgesia PONV: None Cardiovascular Status: At Baseline Respiratory Status: At Baseline Postoperative Fluid Status: Intravascular EUvolemia Possible Anesthetic Complications: NONE apparent at time of evaluation Final Primary Anesthesia Type: MAC (The anesthetic type performed was the same as planned.) Comments: * Anesthesia Preprocedure Evaluation - Lalo Denis MD - 03/15/2022 8:02 AM EST Pre-Anesthesia Evaluation for: Emilee Abebe a 51 y.o. female. Procedure(s): SLING, REVISEOR REMOVE, REPLACE, VAGINALAPPROACH, SYNTHETIC\FASCIA (WRVU 11.15) INJECTION,SINGLE OR MULTIPLE TRIGGER POINTS (WRVU 0.66) Patient Active Problem List Diagnosis Date Noted ??? Intractable chronic migraine without aura and [...] SYNTHETIC performed by Abundio Griffith MD at [facility] MAIN OR ??? ROTATOR CUFF REPAIR Left 2009 ??? SEPTOPLASTY 11/2006 tonsils and upper palate reshaping ??? THYROIDECTOMY, PARTIAL 01/2014 ??? TONSILLECTOMY 11/2006 ??? TUBAL LIGATION ??? UVULOPALATOPHARYGOPLASTY 11/2006 Social History Tobacco Use ??? Smoking status: Never ??? Smokeless tobacco: Never Substance Use Topics ??? Alcohol use: No Social History Substance and Sexual Activity Drug Use Yes ??? Types: Marijuana Comment: vape 2 times a month Allergies Allergen Reactions ??? Abilify [Aripiprazole] Other (See Comments) hallucinations ??? Nurtec Odt [Rimegepant] Rash ??? Morphine Sulfate Nausea And Vomiting ??? Amitriptyline Hcl ??? Hydrocodone ??? Imipramine ??? Oxycodone Hcl ??? Soy ??? Tree Nuts Medications: MAR and/or home medications have been reviewed. Physical Exam: Preprocedure Vitals Current as of 03/15/22 0802 No BP, pulse, respiration, SpO2, or temperature recorded. Height: Weight: BMI: IBW: Airway Assessment: Mallampati: II TM distance: >3 FB Neck ROM: full Cardiovascular Assessment: Rhythm: regular system normal Pulmonary Assessment: unlabored breathing pulmonary exam normal Dental Assessment: Comment: None loose. Misc Assessment: IV access: Peripheral line Last Filed Perioperative Cognitive Screening None Anesthesia Plan: ASA 3 MAC, with a(n) intravenous induction 51 yo woman with dyspareunia, difficulty voiding, urge UI for sling reviseor remove, vaginal approach, injection single or multi trigger points Chart and labs reviewed; patient seen and examined PMH of Fibromyalgia, hypothyroidism, HLD, kidney disease, mild YAHIR, anxiety, vitamin d deficiency, Bipolar disorder, PTSD and chronic migraine No reported anesthetic complications; prior Mac 3 Gr1 view Allergies: Abilify (Aripiprazole) Nurtec Odt (Rimegepant) Morphine Sulfate Amitriptyline Hcl Hydrocodone Imipramine Oxycodone Hcl Soy Tree Nuts Meds: prednisone, vilazodoe hydrosyzine, estradiol, ubrogeparnt, prochlorperazine, trazodone, atorvastatin, epi pen Assessment Plan: ASA 3 MAC, routine monitors - patient requests no sedation (local only) but agreed to have anesthesia present just in case Risks, plans, and procedures discussed with patient who understands and consents; questions and concerns addressed Region - Other Informed Consent: Anesthetic plan and risks discussed with patient. Plan discussed with CIGAR MACHINE FEEDER. Anesthesia Screening documented in this encounter Plan [...] Mon03/15/22 at 0830, Administer over 30 Minutes, Awning Maker And Installer to OR Infuse over 30 minutes., Day of Surgery (Day of Procedure), Indication for (Active or Suspected): Prophylaxis New Bag 03/15/2022 8:55 AM EST 2 g lactated ringers infusion Intravenous, CONTINUOUS PRN, Starting on Mon03/15/22 at 0850, Until Mon03/15/22 at 1019, Anesthesia Intra-op New Bag 03/15/2022 8:50 AM EST documented in this encounter Care Teams Student Teacher Relationship Specialty Start Date End Date Dina Diaz PA [address] [place] [address] [place] [address] PCP - General Internal Medicine 05/26/20 documented as of this encounter
--- OUTSIDE RECORDS SUMMARY | 2023-10-04 01:06 | XMS_ITS | Encounter Summary ---
[place] [address] Care Team Providers Care Registered Phlebotomist Part Time Name Role Phone Dina Diaz Primary Care Provider + Reason for Visit * Reason Onset Date Comments TeleHealth 02/01/2022 Medication and a llergy review. Encounter Details Date Type Department Care Team (Late st Contact Info) Description 02/01/2022 Telephone Neurology at [address] [phone] Sanaz Aburto APRN [facility] [place] [address] TeleHealth (Medication and allergy review. ) Social History Tobacco Use Types Packs/Day [...] Telephone Encounter - Yeni Calderon RN - 02/01/2022 12:31 PM EST Unable to reach this patient by phone to review their medications and allergies prior to their upcoming tele-appointment with the Neurology provider. No message left. documented in this encounter Plan of Treatment Not on file documented as of this encounter Visit Diagnoses Not on filedocumented in this encounter Care Teams Registered Phlebotomist Part Time Relationship Specialty Start Date End Date Dina Diaz PA [address] [place] [address] [place] [address] PCP - General Internal Medicine 05/26/20 documented as of this encounter
--- OUTSIDE RECORDS SUMMARY | 2023-10-04 01:06 | XMS_ITS | Encounter Summary ---
[place] [address] Care Team Providers Care Financial Foundations Associate Name Role Phone Dina Diaz Primary Care Provider + Encounter Details Date Type Department Care Team (Late st Contact Info) Description 07/12/2021 Telephone Obstetrics [place] [phone] Yaritza Brown Social History Tobacco Use Types Packs/Day Years [...] on filedocumented in this encounter Care Teams Financial Foundations Associate Relationship Specialty Start Date End Date Dina Diaz PA [address] [place] [address] PCP - General Internal Medicine 05/26/20 documented as of this encounter
--- OUTSIDE RECORDS SUMMARY | 2023-10-04 01:06 | XMS_ITS | Encounter Summary ---
[place] [address] Care Team Providers Care Truck Supervisor Name Role Phone Dina Diaz Primary Care Provider + Encounter Details Date Type Department Care Team (Late st Contact Info) Description 09/02/2021 Ancillary Procedure [place] [address] Dina Diaz PA [address] [place] [address] Social History Tobacco Use Types Packs/Day Years [...] Associated Diagnosis Comments FILM LIBRARY STORAGE ONLY MAMMO Routine 09/02/2021 12:00 AM EDT documented in this encounter Results * Film Library- Storage Only Mammo (09/02/2021 12:00 AM EDT) Narrative [facility] - 09/23/2021 4:48 PM EDT This exam is auto-finalizing. It's purpose is for storage only. Dina MONTEIRO IMG FILM LIBRARY ORDERABLES [place], [place] documented in this encounter Visit Diagnoses Not on filedocumented in this encounter Care Teams Truck Supervisor Relationship Specialty Start Date End Date Dina Diaz PA [address] [place] [address] [place] [address] PCP - General Internal Medicine 05/26/20 documented as of this encounter
--- OUTSIDE RECORDS SUMMARY | 2023-10-04 01:06 | XMS_ITS | Encounter Summary ---
[place] [address] Care Team Providers Care Principal Software Engineer Name Role Phone Dina Diaz Primary Care Provider + Encounter Details Date Type Department Care Team (Late st Contact Info) Description 03/28/2022 Ancillary Procedure Radiology at [facility] [address] [place] [address] Hardy Gregorio MD [address] [place] [address] Social History Tobacco Use Types Packs/Day Years [...] FILM LIBRARY STORAGE ONLY MR SPINE Routine 03/28/2022 12:00 AM EST documented in this encounter Results * Film Library- Storage Only MR Spine (03/28/2022 12:00 AM EST) Narrative RAD - 03/30/2022 3:52 PM EST This exam is auto-finalizing. It's purpose is for storage only. Hardy Gregorio MD IM FILM LIBRARY ORD ERABLES [place], [place] documented in this encounter Visit Diagnoses Not on filedocumented in this encounter Care Teams Principal Software Engineer Relationship Specialty Start Date End Date Dina Diaz PA [address] [place] [address] [place] [address] PCP - General Internal Medicine 05/26/20 documented as of this encounter
--- OUTSIDE RECORDS SUMMARY | 2023-10-04 01:06 | XMS_ITS | Encounter Summary ---
[facility] Organization [facility] [place] [address] Care Team Providers Care Senior Game Designer Name Role Phone Dina Diaz Primary Care Provider + Reason for Visit * Reason Comments Back Pain * Auth/Cert (Routine) Specialty Diagnoses / Procedures Referred By Contac t Referred To Contact Diagnoses Lumbar herniated disc HNP (herniated nucleus pulposus), lumbar Procedures ER OBSVO Hardy Gregorio MD [address] [facility] [place] [address] [place] Referral ID Status Reason Start Date Expiration Date Visits Re quested Visits Authorized [id number] 1 1 Encounter Details Date Type Department Care Team (Late st Contact Info) Description 04/13/2022 7:22 PM EST - 04/14/2022 10:09 AM EST Emergency Post Acute Care Unit at [facility] [address] [place] [address] Elton Kwok MD [facility] [place] [address] Hardy Gregorio MD [address] [facility] [place] [address] Lumbar herniated disc (Primary Dx) Discharge Disposition: Home Social History Tobacco Use [...] six weeks after surgery with a Physician???s Biopsychologist at the surgeon???s office. You will have [...] when to stop taking it. Only take tkwr-xpi-nlsamxe or prescription medicine for pain, discomfort or [...] If you have any questions, please call [facility] Neurology and Neurosurgery at [phone], during business hours of Monday through Monday from 8:00 a.m. until 4:00 p.m. In case of emergency during non-business hours, please call the same main number and follow the prompts to page the neurosurgeon decoration checker. SMOKING CESSATION INFORMATION: [place] QUIT[place]: [place] QUITLINE: [email or web address] If you smoke, stop now! Smoking may impede healing. MAKE SURE YOU: Understand these instructions. Will seek medical care if you are feeling poor, or get worse. Will call the surgeon???s office with any questions or concerns at : [phone] Nursing information only: Original document to medical [...] azelastine (ASTELIN) 137 mcg (0.1 %) Aerosol, [place] Every 12 hours. 03/17/2020 baclofen (Lioresal) 10 [...] spasm, # 30 tab, 0 Refill(s), Pharmacy: [id number], 165, cm, 08/14/21 10:33:00 [...] of this encounter Progress Notes * Donte Bashir, LINDA - 04/14/2022 10:03 AM EST Uneventful PACU [...] [facility] today related to a recent diagnosis of a herniated lumbar disc. Her symptoms started on February 18, 2022 when she was injured at work moving a pallet. She developed pain going down her left leg. She has no history of spinal surgery. She was seen by [facility] neurosurgery in our office on [...] being seen by OR nursing reportgiven to [place] and OR staff. * Sharron Grijalva RN - 04/14/2022 4:14 AM EST Pt started to fall asleep and had another drop in her oxygen to 85%. Pt placed on oxygen via NC at 2LPM with improvement to 98% * Sharron Grijalva RN - 04/14/2022 3:56 AM EST Pt sts she is having mid back pain radiating to front sts pn 7/10 denies n/v. Upon palpation of back pt had pain and upon palp to anterior chest, pt placed on cardiac monitoring NSR (HR down from 108to 89) in Lead III. Pt had episode with oxygen level dropping to 85, pt took deep breaths with return to 98% in under 30 seconds. * Sharron Grijalva RN - 04/14/2022 2:51 AM EST Message left with neurosurgical service regarding pt's BP * Sharron Grijalva RN - 04/14/2022 2:42 [...] position. Pt returned to room BP improved. * Elton Kwok MD - 04/13/2022 11:14 [...] tomorrow. NPO at midnight. Elton Kwok MD 04/13/22 [id number] Elton Kwok MD 04/13/22 [id number] * Sharron Grijalva RN - 04/13/2022 7:44 PM EST Pt told BOILER HELPER that she is having severe pain. documented in this encounter Miscellaneous Notes * Op Note - Hardy Gregorio MD - 04/14/2022 7:44 AM EST [facility] Operative Note [facility] [address] [place] [address] Patient Name: Emilee Abebe : [id number] MR#: [id number] Case Date: 04/14/2022 Case Scheduled Time: 729 Surgeon: Surgeon(s) and Role: * Hardy Gregorio MD - Primary * Phylicia Brown PA - Physician Biopsychologist Preoperative diagnosis: SPONDYLOSIS, STENOSIS, HNP Postoperative diagnosis: [...] been exhausted. Her conventional insurance is through [employer] and they told her that our facility was out of network and that she would need to go to [place] to have her surgery. As she was [...] the duration of the operative session. The carpenter's assistant adequately prepped the operative site and maintained the best possible exposure of anatomy incident to the procedure. Hardy Gregorio MD 04/14/2022 * ED Triage - Sharron Grijalva, RN - 04/13/2022 7:22 PM EST HPI [...] AM EST Laminec/Facetect/Cassia in, Lumbar 1 Seg (06453) Yes 04/14/2022 7:24 AM EST SPONDYLOSIS, STENOSIS, [...] 9:34 PM EST) Neutrophil % 54.1 % [facility] Neutrophil Absolute 3.63 1.70 - 6.10 x10(3)/[facility] Lymph % 35.9 % [facility] Lymphocytes Abs 2.4 0.9 - 3.2 x10(3)/[facility] Monocyte % 6.8 % [facility] Monocyte Abs 0.5 0.3 - 0.9 x10(3)/[facility] Eos % 2.7 % [facility] Eosinophils Abs 0.2 0.0 - 0.4 x10(3)/[facility] Basophil % 0.4 % [facility] Baso Absolute 0.0 0.0 - 0.1 x10(3)/[facility] Immature Gran % 0.10 % [facility] Comment: Immature granulocytes(IG's)percentage and absolute count will include metamyelocytes, myelocytes, and promyelocytes. Blood smears from CBCs yielding IG's will be scanned manually for concordance. If this scan disagrees with the automated IG or if promyelocytes are noted, a manual differential will be performed. Immature Gran Absolute 0.01 0.00 - 0.04 x10(3)/[facility] Blood 04/13/2022 9:34 PM EST 04/13/2022 9:34 PM EST Narrative Resulting Agency Comment Spec In Lab Elton Kwok MD HEMATOLOGY ORDERABLE S [facility] [address] [place] [address] * Hemogram (04/13/2022 9:34 PM EST) White Blood Cell 6.7 4.0 - 9.5 x10(3)/[facility] Red Blood Cell 4.88 4.00 - 5.21 x10(6)/[facility] Hemoglobin 14.5 11.7 - 15.5 g/dL [facility] Hematocrit 44.9 35.7 - 45.8 % [facility] Mean Cell Volume 92.0 82.6 - [...] Platelet Volume 8.3 7.6 - 12.9 fL [facility] Blood 04/13/2022 9:34 PM EST 04/13/2022 9:34 PM EST Narrative Resulting Agency Comment Spec In Lab Elton Kwok MD HEMATOLOGY ORDERABLE S [facility] [address] [place] [address] * (ABNORMAL) Comprehensive metabolic panel (non-fasting) (04/13/2022 9:34 PM EST) Glucose 102 65 - 199 mg/dL [facility] [...] Alkaline Phosphatase 71 35 - 105 unit/L [facility] Bilirubin, Total 0.3 0.2 - 1.3 mg/dL [facility] Est Glomerular Filtration Rate 108 >=60 mL/min/1. 73 m?? [facility] Comment: This patient's estimated GFR was [...] In Lab Elton Kwok MD CHEMISTRY ORDERABLES [facility] [address] [place] [address] * EKG 12 Lead (04/13/2022 8:43 PM EST) Ventricular rate 83 BPM MUSE SYSTEM Atrial Rate 83 BPM MUSE SYSTEM P-R Interval 126 ms MUSE SYSTEM QRS Duration 86 ms MUSE SYSTEM Q-T Interval 372 ms MUSE SYSTEM QTC Calculated (Bezet) 437 ms MUSE SYSTEM Calculated P [place] 76 degrees MUSE SYSTEM Calculated R [place] 82 degrees MUSE SYSTEM Calculated T [place] 58 degrees MUSE SYSTEM INTERPRETATION Normal sinus rhythm Possible Left atrial enlargement RSR' or QR pattern in V1 suggests right ventricular conduction delay Borderline ECG No previous ECGs available Confirmed by MD Gorman Danette ([id number]) on 04/14/2022 8:22:50 AM MUSE SYSTEM 04/13/2022 8:43 PM EST 04/14/2022 8:22 AM EST Elton Kwok MD ECG ORDERABLES MUSE SYSTEM * Urinalysis with reflex Culture (04/13/2022 8:43 PM EST) Glucose, Urine Dipstick Negative Negative mg/dL [facility] Protein, Urine Dipstick Negative Negative mg/dL [facility] Bilirubin, Urine Dipstick Negative Negative mg/dL [facility] Comment: Clinical correlation required for positive Urine Bilirubin results as false positive may occur with some drugs and drug related products. If a false positive is suspected a serum total bilirubin should be considered if clinically indicated. Urobilinogen, Urine Dipstick Normal Normal mg/dL [facility] pH, Urn (dipstick) 7.0 5.0 - 8.0 [facility] Blood, Urine Dipstick Negative Negative mg/dL [facility] Ketone, Urine Dipstick Negative Negative mg/dL [facility] Nitrite, Urine Dipstick Negative Negative [facility] Leukocytes, Urine Dipstick Negative Negative mcL [facility] Appearance, Urine Dipstick Clear Clear [facility] Specific [place] Urine Automated 1.015 1.006 - 1.030 [facility] Color, Urine Dipstick Yellow [facility] Reflex to Culture No [facility] Clean Catch Urine 04/13/2022 8:43 PM EST 04/13/2022 9:34 PM EST Narrative Resulting Agency Comment Spec In Lab Elton Kwok MD URINE ORDERABLES [facility] [address] [place] [address] documented in this encounter Visit Diagnoses Diagnosis Lumbar herniated disc- Primary Displacement of lumbar intervertebral disc without myelopathy Lumbar herniated disc Displacement of lumbar intervertebral disc without myelopathy HNP (herniated nucleus pulposus), lumbar Displacement of lumbar intervertebral disc without myelopathy documented in this encounter Admitting Diagnoses Diagnosis Lumbar [...] 30 MIN PRE-OP, 1 dose, On Adele 2/16/23 at 0705, Administer over 30 Minutes, Indication [...] mL/hr, Intravenous, CONTINUOUS, Starting on Mon04/13/22 at 211, Until Adele 04/14/22 at 1210 New Bag [...] Queen RN - Comment: Given sol anesthesia Mattt for administration)0751 (Due: Stopped - Provider: Ivy Queen RN) dexAMETHasone (PF) (Decadron) (10 mg/mL) injection 10 mg (COMPLETED) 10 mg, Intravenous, ONCE, 1 dose, On Mon04/13/22 at 2038, Routine 2105 (Given - Provider: Sharron Grijalva RN) HYDROmorphone (Dilaudid) (2 mg/mL) injection solution 1 mg (COMPLETED) 1 mg, Intravenous, ONCE, 1 dose, On Mon04/13/22 at 2039, STAT 2105 (Given - Provider: Sharron Grijalva RN) melatonin tablet 3 mg 3 mg, Oral, NIGHTLY, First dose on Mon04/13/22 at 211, Until Discontinued, Routine 2115 (Hold - Provider: Sharron Grijalva RN - Reason: Patient/family refused) 0739 ([facility] Hold - Provider: Admin Adt - Reason: Transfer to a Procedural area)1210 ([facility] Unhold - Provider: Automatic Discharge Provider) traZODone (Desyrel) tablet 50 mg 50 mg, Oral, NIGHTLY, First dose on Mon04/13/22 at 211, Until Discontinued, Routine 2115 (Hold - Provider: Sharron Grijalva RN - Reason: Patient/family refused) 0739 ([facility] Hold - Provider: Admin Adt - Reason: Transfer to a Procedural area)1210 ([facility] Unhold - Provider: Automatic Discharge Provider) Continuous Medication Order 04/12/2022 04/13/2022 04/14/2022 sodium chloride 0.9% infusion 100 mL/hr, Intravenous, CONTINUOUS, Starting on Mon04/13/22 at 2116, Until Adele 04/14/22 at 1210 0027 (New Bag - Prov ider: Sharron Grijalva RN)0739 ([facility] Hold - Provider: Admin Adt - Reason: Transfer to a Procedural area)1210 ([facility] Unhold - Provider: Automatic [...] 0406 (Given - Provider: Sharron Grijalva RN)0739 ([facility] Hold - Provider: Admin Adt - Reason: Transfer to a Procedural area)1210 ([facility] Unhold - Provider: Automatic [...] RN)0319 (Given - Provider: Sharron Grijalva RN)0739 ([facility] Hold - Provider: Admin Adt - Reason: Transfer to a Procedural area)1210 ([facility] Unhold - Provider: Automatic Discharge Provider) ondansetron (pf) (Zofran) (2 mg/mL) injection 4 mg 4 mg, Intravenous, EVERY 4 HOURS PRN, Starting on Mon04/13/22 at 2113, Until Adele 04/14/22 at 1210, Nausea, Vomiting, Routine 0739 ([facility] Hold - Provider: Admin Adt - Reason: Transfer to a Procedural area)1210 ([facility] Unhold - Provider: Automatic Discharge Provider) sodium chloride 0.9 % (flush) (BD PosiFlush Normal Saline 0.9) flush 3 mL 3 mL, Intravenous, EVERY 1 MIN PRN, Starting on Mon04/13/22 at 2036, Until Adele 04/14/22 at 1210, for flushes pre / post IV fluids or blood draws as needed, Routine 0739 ([facility] Hold - Provider: Admin Adt - Reason: Transfer to a Procedural area)1210 ([facility] Unhold - Provider: Automatic Discharge Provider) documented in this encounter Care Teams Senior Game Designer Relationship Specialty Start Date End Date Dina Diaz PA [address] [place] [address] [place] [address] PCP - General Internal Medicine 05/26/20 documented as of this encounter
--- OUTSIDE RECORDS SUMMARY | 2023-10-04 01:06 | XMS_ITS | Encounter Summary ---
Author Organization [facility] [address] Care Team Providers Care Geothermal Powerplant Mechanic Helper Name Role Phone Dina Diaz Primary Care Provider + Reason for Referral * Consultation (Routine) - Closed Specialty Diagnoses / Procedures Referred By John almaraz Referred To Contact Neurology Diagnoses Complicated migraine Dina Diaz PA [address] [place] [id number] [facility] [address] [place] [phone] Referral ID Status Reason Start Date Expiration Date V isits Requested Visits Authorized [id number] Closed Consult, Test & Treat PCP Updated and/or Approved 05/26/2021 05/26/2022 1 1 Encounter Details Date Type Department Care Team (Late st Contact Info) Description 05/26/2021 Transcribe Orders Neurology at [address] [phone] Dina Diaz PA [address] [place] [address] [phone] Complicated migraine (Primary Dx) Social History Tobacco Use Types [...] Associated Diagnoses Orde r Schedule Referral to Neurology Outpatient Referral Routine Complicated migraine Ordered: 05/26/2021 documented as of this encounter Visit Diagnoses Diagnosis Complicated migraine- Primary Migraine with aura, without mention of intractable migraine without mention of status migrainosus documented in this encounter Care Teams Geothermal Powerplant Mechanic Helper Relationship Specialty Start Date End Date Dina Diaz PA [address] [place] [address] [place] [address] PCP - General Internal Medicine 05/26/20 documented as of this encounter
--- OUTSIDE RECORDS SUMMARY | 2023-10-04 01:06 | XMS_ITS | Encounter Summary ---
[place] [address] Care Team Providers Care Regional Forester Name Role Phone Dina Diaz Primary Care Provider + Encounter Details Date Type Department Care Team (Late st Contact Info) Description 09/02/2021 12:05 AM EDT Ancillary Procedure [place] [address] Dina Diaz PA [address] [place] [address] [phone] Social History Tobacco Use Types Packs/Day Years [...] Name Priority Date/Time Associated Diagnosis Comments FILM LIBRARY-STORAGE ONLY US BREAST Routine 09/02/2021 12:05 AM EDT documented in this encounter Results * Film Library Storage Only US Breast (09/02/2021 12:05 AM EDT) Narrative ILIANA - 09/23/2021 4:49 PM EDT This exam is auto-finalizing. It's purpose is for storage only. Dina MONTEIRO IMG FILM LIBRARY ORDERABLES [place], [place] documented in this encounter Visit Diagnoses Not on filedocumented in this encounter Care Teams Regional Forester Relationship Specialty Start Date End Date Dina Diaz PA [address] [place] [address] [place] [address] PCP - General Internal Medicine 05/26/20 documented as of this encounter
--- OUTSIDE RECORDS SUMMARY | 2023-10-04 01:06 | XMS_ITS | Encounter Summary ---
[place] [address] Care Team Providers Care Leather Skinner Name Role Phone Dina Diaz Primary Care Provider + Encounter Details Date Type Department Care Team ([facility] Contact Info) Description 04/08/2022 10:30 AM EST Telephone Pre-Admission Testing at [facility] [address] [place] [address] Social History Tobacco Use Types Packs/Day Years Used Date Smoking Tobacco: Never Smokeless Tobacco: Never Tobacco Cessation:Counseling Given: Not Answered Alcohol Use Standard Drinks/Week Comments Yes 0 [...] on filedocumented in this encounter Care Teams Leather Skinner Relationship Specialty Start Date End Date Dina Diaz PA [address] [place] [address] [place] [address] PCP - General Internal Medicine 05/26/20 documented as of this encounter
--- OUTSIDE RECORDS SUMMARY | 2023-10-04 01:07 | XMS_ITS | Encounter Summary ---
Author Organization [facility] [place] [address] Care Team Providers Care Appliance Sales Associate Name Role Phone Unavailable Primary Care Provider Unavailabl e Encounter Details Date Type Department Care Team (Late st Contact Info) Description 10/13/2015 Orders Only Psychiatry [place] [address] Usman Crowder MD [facility] [place] [address] Social History Tobacco Use Types Packs/Day Years [...]
--- OUTSIDE RECORDS SUMMARY | 2023-10-04 01:07 | XMS_ITS | Encounter Summary ---
Author Organization [facility] [place] [address] Care Team Providers Care Fire Behavior Analyst Name Role Phone Unavailable Primary Care Provider Unavailabl e Encounter Details Date Type Department Care Team ([facility] st Contact Info) Description 10/15/2015 3:40 PM EDT Office Visit Primary Care [place] [address] [place] [address] Feli Segura, [address] [place] [address] Social History Tobacco Use Types Packs/Day Years [...]
--- OUTSIDE RECORDS SUMMARY | 2023-10-04 01:07 | XMS_ITS | Encounter Summary ---
[place] [address] Care Team Providers Care Information Systems Manager Name Role Phone Dina Diaz Primary Care Provider + Encounter Details Date Type Department Care Team (Late st Contact Info) Description 08/20/2020 Ancillary Procedure [place] [address] Dina Diaz PA [address] [place] [address] Social History Tobacco Use Types Packs/Day Years [...] Comments FILM LIBRARY STORAGE ONLY MAMMO Routine 08/20/2020 12:00 AM EDT documented in this encounter Results * Film Library- Storage Only Mammo (08/20/2020 12:00 AM EDT) Narrative [facility] - 01/04/2021 1:58 PM EST This exam is auto-finalizing. It's purpose is for storage only. Dina MONTEIRO IMG FILM LIBRARY ORDERABLES [place], [place] documented in this encounter Visit Diagnoses Not on filedocumented in this encounter Care Teams Information Systems Manager Relationship Specialty Start Date End Date Dina Diaz PA [address] [place] [address] [place] [address] PCP - General Internal Medicine 05/26/20 documented as of this encounter
--- OUTSIDE RECORDS SUMMARY | 2023-10-04 01:07 | XMS_ITS | Encounter Summary ---
Author Organization On License [facility] Address [facility] [place] [address] Care Team Providers Care Supervisor Die Casting Name Role Phone Dina Diaz Primary Care Provider + Reason for Referral * Consultation (Routine) - Closed Specialty Diagnoses / Procedures Referred By John almaraz Referred To Contact Dental Automotive Fleet Supervisor Diagnoses YAHIR (obstructive sleep apnea) Fay Blake APRN [facility] [place] [address] Sanket Rodas [address] [facility] [address] [address] Referral ID Status Reason Start Date Expiration Date V isits Requested Visits Authorized [id number] Closed Consult, Test & Treat Non PCP 01/18/2021 07/17/2021 1 1 Encounter Details Date Type Department Care Team (Latest Contact Info) Description 01/18/2021 4:15 PM EST TH Visit (TeleHealth) Sleep Center at [facility] [address] [place] [address] Fay Blake APRN [facility] [place] [address] YAHIR (obstructive sleep apnea) (Primary Dx); Insomnia, unspecified type Social History Tobacco Use Types Packs/Day Years [...] this encounter Patient Instructions * Patient Instructions* Fay Blake Malik, BOX SPINNER - 01/18/2021 4:15 PM EST Reviewed with patient treatment for YAHIR. Reviewed CPAP, OA and conservative measures in detail . Referral provided for dentistry for eval and consult on OA as treatment for YAHIR. Insomnia diagnosis reviewed with treatment discussed. Patient is currently taking trazodone 100mg nightly. Often will wake feeling foggy head. Reviewed taking discussing with prescriber on decreased dosage or taking earlier. Discussed CBTI as treatment for insomnia. Patient declines at this time. With review of medications currently is taking beta gabriel in am which maybe contributing to am sleepiness. Recommned reviewing with pcp. Driving safety discussed, recommend patient not drive if drowsy, if drowsy while driving, pull overand nap. Follow-up: As needed Sleep hygiene 1) Get up at the same time seven days out of the week. 2) Only go to bed when feeling sleepy. 3) Wind down in the evening without electronics. 4) Stimulus Control: If lying in bed for 15-20 minutes (estimated because the clock is turned away so you cannot see it) and you are not asleep get up and do something relaxing in a different room (reading a magazine article, solitaire with a deck of cards). Do this in the middle of the night as well if awake. Avoid doing work or getting on the computer. 5) Bedroom for sleep only. No watching TV or using electronics (computer, phone, tablet etc.) in bed. 6) Turn clock away so you cannot see it in bed. 7) Exercise regularly but try to avoid exercise within 4 hours of bedtime. Morning exercise is best. 8) Avoid caffeine in the afternoon. Considering tapering down on caffeine by decreasing by one beverage with caffeine every 3 days until off. 9) Avoid smoking near bedtime 10) Avoid alcohol before bed. If you consume one alcoholic beverage allow 3 hours between that drink and bedtime. If you consume two alcoholic beverages allow 5 hours Between those drinks and bedtime. Alcohol may lead to waking at night. 11) Avoid napping except for driving safety. If you feel to sleepy to drive do not drive. If you get sleepy while driving cable puller ,turn the car off and nap. You may resume driving once you feel alert. documented in this encounter Progress Notes * Fay Blake APRN - 01/18/2021 4:15 PM EST Sleep Medicine Follow-Up Note CC: Ms. Emilee Wilhelm is a 50 y.o. female seen via telehealth from [facility] for follow-up ofobstructive sleep apnea. Patient verbalizes permission for visit with understanding visit will be billed similar to an in person office visit. HPI: Patient presents for visit regarding follow up of YAHIR to review recent PSG. Patient reported tryingcpap did not work well for her deals with congestion and phlegm with use. Was only able to use for an hour. Has sent cpap device back to [facility]. Reports more tiredness since sleep study. Report harder time remembering things. May wake with difficulty getting back to sleep over half the days. Taking trazodone at bedtime for insomnia. Wakes in am feeling foggy with trazodone. Sleep Study: 09/23/2020 Assessment: Иван Wilhelm is a 50 y.o. female whose polysomnogram reveals obstructive sleep apnea. This was overall in the mild range of severity and observed predominantly in the supine sleeping position. There was not evidence of hypoxemia. Total sleep time was 7.5 hrs. Sleep efficiency wasmildly reduced; sleep architecture was normal. REM latency was prolonged. No motor disorder identified. Of note, MSLT scheduled however, the patient indicated that she did not want to remain for the MSLT and left. Study results and recommendations relayed to patient via [facility] ? Recommendations: 1. Can consider treatment for mild YAHIR to assess for symptom improvement; treatment options includeconservative measures such as avoidance of supine sleeping position. Could also consider trial of treatment with CPAP. Weight: 131lb Treatment: PAP N/A Device: Pressure: Pressure Intolerance: Supplemental oxygen: Interface/Mask: Difficulty tolerating mask interface: Chin Strap: HCC: Update: Patient perceived outcome: see HPI Symptoms: Patient-reported last 4 scores: [facility] 02/11/2015 02/25/2015 07/14/2020 01/18/2021 [facility] - 17 (High Risk) 19 (High Risk) 19 (High Risk) Insomnia Severity Index - 20 (Moderately severe insomnia) 22 (Severe insomnia) Incomplete VR12 - Physical Component Summary 62.52 48.01 - - VR12 - Mental Component Summary 27.34 29.35 - - Snoring: No bed partner Nocturnal sleep quality improved: reports not sleeping well at night may wake at 2 am not able to get back to sleep Daytime symptoms improved (Daytime sleepiness/fatigue): ongoing daytime sleepiness / fatigue Naps: Not an option Involuntary Dozing: None Sleepiness or Drowsiness when driving: sometimes Sleep Pattern: Bedtime: 9:30-10 pm Position:lateral Rise time:4 am Awakenings: 1x difficulty getting back to sleep Card Data Download: N/A Date Range: Pressure: Residual AHI: Avg Vibratory Snore Index: Avg% Night in Large Leak: 95th% Leak: Median Leak: Average Usage (Days Used/Hours): hrs min Days of usage: % Days used > 4 hours: ROS: Constitutional: Weight change: stable ENT: Nasal Obstruction: Congestion : Nocturia: Physical Exam: General: 50 y.o. female, no distress Chest: respirations even and not labored at rest Skin: No skin irritation Time spent: total time of visit, was 30 minutes, including face to face counseling, chart review and documentation Assessment: Ms. Emilee Wilhelm is a 50 y.o. female seen for obstructive sleep apnea. Reviewed with patient treatment for YAHIR. Reviewed CPAP, OA and conservative measures in detail . Patient is not interested in retying cpap. Referral provided for dentistry for eval and consult on OA as treatment for YAHIR. Insomnia diagnosis reviewed with treatment discussed. Patient is currently taking trazoned 100mg nightly. Often will wake feeling foggy head. Reviewed taking discussing with prescriber on decreased dosage or taking earlier. Discussed CBTI as treatment for insomnia. Patient declines at this time. With review of medications currently is taking beta gabriel in am which maybe contributing to am sleepiness. Recommned reviewing with pcp. Recommendations: Reviewed with patient treatment for YAHIR. Reviewed CPAP, OA and conservative measures in detail . Referral provided for dentistry for eval and consult on OA as treatment for YAHIR. Insomnia diagnosis reviewed with treatment discussed. Patient is currently taking trazodone 100mg nightly. Often will wake feeling foggy head. Reviewed taking discussing with prescriber on decreased dosage or taking earlier. Discussed CBTI as treatment for insomnia. Patient declines at this time. With review of medications currently is taking beta gabriel in am which maybe contributing to am sleepiness. Recommned reviewing with pcp. Driving safety discussed, recommend patient not drive if drowsy, if drowsy while driving, pull overand nap. Follow-up: As needed The patient indicates understanding of these issues and agrees with the plan. FAY BLAKE APRN documented in this encounter Plan of Treatment Scheduled Referrals Name Type Priority Associated Diagnoses Orde r Schedule Referral to Dentistry Outpatient Referral Routine YAHIR (obstructive sleep apnea) Ordered: 01/18/2021 documented as of this encounter Visit Diagnoses Diagnosis YAHIR (obstructive sleep apnea)- Primary Obstructive sleep apnea (adult) (pediatric) Insomnia, unspecified type documented in this encounter Care Teams Supervisor Die Casting Relationship Specialty Start Date End Date Dina Diaz PA [address] [place] [address] [place] [address] PCP - General Internal Medicine 05/26/20 documented as of this encounter
--- OUTSIDE RECORDS SUMMARY | 2023-10-04 01:07 | XMS_ITS | Encounter Summary ---
Author Organization [facility] Address [facility] [place] [address] Care Team Providers Care Palaeontologist Name Role Phone Dina Diaz Primary Care Provider + Reason for Referral * Diagnostic Test (Routine) - Closed Specialty Diagnoses / Procedures Referred By John almaraz Referred To Contact Sleep Center Diagnoses Narcolepsy and cataplexy Procedures Actigraphy Fay Blake [facility]N [facility] [address] [facility] [address] [place] [address] Referral ID Status Reason Start Date Expiration Date V isits Requested Visits Authorized [id number] Closed Specialty Service Requested 08/26/2020 08/26/2021 1 1 Encounter Details Date Type Department Care Team (Late st Contact Info) Description 08/26/2020 Orders Only Sleep Center at [facility] [address] [place] [address] Fay Blake APRN [facility] [place] [address] Narcolepsy and cataplexy Social History Tobacco Use Types Packs/Day Years [...] Type Priority Associated Diagnoses Orde r Schedule Actigraphy Sleep Center Routine Narcolepsy and cataplexy Expected: 08/26/2020, Expires: 08/26/2021 documented as of this encounter Visit Diagnoses Diagnosis Narcolepsy and cataplexy Narcolepsy with cataplexy documented in this encounter Care Teams Palaeontologist Relationship Specialty Start Date End Date Dina Diaz PA [address] [place] [address] [place] [address] PCP - General Internal Medicine 05/26/20 documented as of this encounter
--- OUTSIDE RECORDS SUMMARY | 2023-10-04 01:07 | XMS_ITS | Encounter Summary ---
Author Organization [facility] Address [facility] [place] [address] Care Team Providers Care Teletypist Name Role Phone Dina Diaz Primary Care Provider + Reason for Referral * Diagnostic Test (Routine) - Closed Specialty Diagnoses / Procedures Referred By John almaraz Referred To Contact Sleep Center Diagnoses Sleep apnea, unspecified type Procedures Sleep Study Diagnostic PSG / Split Night PSG Fay Blake APRN [facility] [place] [address] [facility] [address] [place] [address] Referral ID Status Reason Start Date Expiration Date V isits Requested Visits Authorized [id number] Closed Specialty Service Requested 07/14/2020 07/14/2021 1 1 Reason for Visit * Consultation (Routine) - Closed Specialty Diagnoses / Procedures Referred By John almaraz Referred To Contact Sleep Center Diagnoses Narcolepsy with cataplexy Abiel Wiggins MD [address] [place] [address] [facility] [address] [place] [address] Referral ID Status Reason Start Date Expiration Date V isits Requested Visits Authorized [id number] Closed Consult, Test & Treat Connection Center PCP Updated and/or Approved 05/18/2020 05/18/2021 6 6 Encounter Details Date Type Department Care Team (Latest Contact Info) Description 07/14/2020 8:45 AM EDT TH Visit (TeleHealth) Sleep Center at [facility] [address] [place] [address] Fay Blake APRN [facility] [place] [address] Sleep apnea, unspecified type (Primary Dx); Narcolepsy and cataplexy; Insomnia, unspecified type Social History Tobacco Use [...] - Inhaled Oxygen Concentration - - Weight 62.6 kg (138 lb) 07/14/2020 8:26 AM EDT Height 165.1 cm (5' 5) 07/14/2020 8:26 AM EDT Body Mass Index 22.96 07/14/2020 8:26 AM EDT documented in this encounter Patient Instructions * Patient Instructions* Fay Blake APRN - 07/14/2020 8:45 AM EDT 1. Overnight PSG split for AHI>30 and CMS AHI>10. with MLST 2. Role of weight loss reviewed 3. Safe driving precautions extensively reviewed with the patient 4. Sleep apnea facts and figures handout reviewed 5. F/U after PSG with MSLT documented in this encounter Progress Notes * Fay Blake, SUPERVISOR AIR CONDITIONING INSTALLER - 07/14/2020 8:45 AM EDT Sleep Medicine Consultation Note CC:Emilee Wilhelm is a 49 y.o. female seen via telehealth visit from [facility] at the request of Abiel Wiggins MD for advice regarding narcolespy. Patient verbalizes permission for visit with understanding visit will be billed similar to an in person office visit. HPI: Patient presents for visit regarding referral for narcolespy with cataplexy. . Sleep history: Intially diagnosed in 2006 PSG AHI 17 CMS AHI 5.3, 09/29/2006 CPAP Titration study recommended Auto 5-16cw.Surgery UPPP 12/22/2006. Seen for follow up in 2016. Did not completed PSG at that time as recommended. Reports did have sleep study with MLST completed in November 06, 2019 [facility]. Re ported border line YAHIR with latest PSG. Diagnosed with narcolepsy on MSLT. Discussion per records from [facility] on whether idiopathic hypersomnia vs narcolepsy. [place] history supported narcolepsy with cataplexy.. Patient has also been treated in the past for insomnia currently taking tr azodone nightly to assist with sleep onset. Has tried medications for narcolepsy without adequate response medications used wakix, sunosi, vyvanse, adderal. Ongoing symptoms from narcolepsy with cataplexy occurring several time weekly. Describes with extreme anger or overtired facial muscles get tight and cannot talk. Has not fallen but feels legs could give out on her. No current medication for treatment of narcolepsy. Reports being extremely tired. Reports takes trazodone nightly to assist with getting to sleep. Difficulty getting to sleep without trazodone nightly difficulty staying asleepwake 2-6 x nightly. Is not always able to get back to sleep maybe up 30 min to 2 hours. Current medical health fibromyalgia, PTSD,depression, chronic neck and back pain Sleep Pattern: Bed/Recliner/Wedge: bed, 2 pillows, preferred position supine to left lateral, no current bed partner Bedtime: 9:30pm Lights out: within a few min after in bed Latency: 15 - 30 min 1x weekly up to 2 hours Awakenings: 2-6x Reason: urinate mind racing and not sure Duration: 30 min - 2 hours longer time 2 nights weekly Wake time: 5:30 am Rise time: 5:30 am Respiratory: Snoring: no snoring that she is aware of Observed Apneas: unknown Nocturnal Gasping: none Nasal Obstruction: none Mouth Breathing: yes Dry Mouth: sometimes Daytime Symptoms: [place]: Patient-reported last 4 scores: [facility] 11/06/2014 02/11/2015 02/25/2015 07/14/2020 [facility] - - 17 (High Risk) 19 (High Risk) Insomnia Severity Index - - 20 (Moderately severe insomnia) 22 (Severe insomnia) VR12 - Physical Component Summary 33.4 62.52 48.01 - VR12 - Mental Component Summary 43.11 27.34 29.35 - Upon Awakening: wakes always tired not well rested Naps: if she was not working would nap Involuntary Dozing: when not working dozing occurs Driving: slight drowsiness with driving Close calls related to sleepiness Accidents related to sleepiness Other Associates Sleep Symptoms: Parasomnias: Sleep Walking: no Dream Enactment: not recently screaming and talking, walking motion Motor: RLS: not currently PLMS: no Narcolepsy: Hallucinations: no Paralysis: not in a long time Cataplexy: several times weekly, triggered with extreme anger or overtired facial muscles get tightand cannot talk. Has not fallen but feels leg could give out on her Medications: Current Outpatient Medications: ??? Banophen 50 mg Capsule, TAKE 1 CAPSULE BY MOUTH EVERY 6 TO 8 HOURS NEEDED, Disp: , Rfl: ??? traZODone (Desyrel) 100 mg Tablet, , Disp: , Rfl: ??? montelukast (Singulair) 10 mg Tablet, , Disp: , Rfl: ??? cyclobenzaprine (Flexeril) 10 mg Tablet, TAKE 1 TABLET BY MOUTH THREE TIMES DAILY NEEDED, Disp: , Rfl: ??? buPROPion XL (Wellbutrin XL) 300 mg Tablet Extended Release 24 hr, TAKE 1 TABLET BY MOUTH ONCE DAILY IN THE MORNING FOR 30 DAYS, Disp: , Rfl: ??? bisoprolol (ZEBETA) 5 mg Tablet, , Disp: , Rfl: ??? atorvastatin (Lipitor) 20 mg Tablet, TAKE 1 TABLET BY MOUTH ONCE DAILY, Disp: , Rfl: ??? levocetirizine (XYZAL) 5 mg Tablet, Take 5 mg by mouth daily., Disp: , Rfl: ??? cholecalciferol, Vitamin D3, 1,000 unit Capsule, Take 5,000 Units by mouth., Disp: , Rfl: ??? fluticasone (FLONASE) 50 mcg/actuation [place], Suspension, 1 spray by Each Nare route 2 times daily., Disp: , Rfl: ??? EPINEPHrine (EPIPEN) 0.3 mg/0.3 mL (1:1,000) Auto-Injector, Inject 0.3 mLs into the muscle onceas needed. (Patient not taking: Reported on 07/14/2020), Disp: 1 each, Rfl: 1 Past Medical History: Past Medical History: Diagnosis Date ??? Allergic state ??? Anxiety ??? Bipolar disorder ??? Degenerative disc disease ??? Depression ??? Environmental allergies with anaphylaxis ??? Fibrocystic breast disease ??? Fibromyalgia ??? Gestational diabetes ??? Lower back injury 02/05/2013 ??? Lyme disease ??? PTSD (post-traumatic stress disorder) ??? Sleep apnea ??? Thyroid disorder Social History: Living situation: lives alone Employment: works at [employer] Alcohol: none Smoking: never Caffeine: 2 cups of coffee in am Other drugs: none Family History: Family history of sleep disorders: unknown family history of sleep disorders / mom and sister insomnia ROS: CON: weight change: loss 32 lbs in the past 5 months ENT: nasal obstruction: none PUL: JORDAN: no CV: chest pain: no Palpitations: in the past, controlled with medication LE edema: no GI: GERD: yes on famotidine : Nocturia: 1x MSK: Pain: yes NEURO: sleep related headaches: 4-5x weekly Cognitive changes: foggy head ALL: seasonal ENDO: thyroid monitored PSY: Depression: yes, stable Anxiety: no PE: Ht 165.1 cm (5' 5) Wt 62.6 kg (138 lb) BMI 22.96 kg/m?? General: NAD Eyes: conjunctiva clear ENT: oropharynx MP: visual crowding Mandibular structure and position: NECK: Submental fat present: Neck Size: LUNGS: respirations even and unlabored CV: SKIN: warm and dry NEURO: PSYCH:appropriate Alert and appropriate: yes Oriented to person, place and time: yes Affect: full range Mood: good Judgement and insight: intact Assessment: Emilee Wilhelm is a 49 y.o. female with a history of YAHIR, narcolespy, fibromyalgia, PTSD,depression, chronic neck and back pain. . The diagnosis of obstructive sleep apnea and narcolepsy was reviewed in detail with the patient at this time. Potential consequences of untreated obstructive sleep apnea reviewed, including increased cardiovascular risk. Treatment options reviewed in detail including PAP therapy, oral appliances. Discussed with patient due to current issues with insomnia and excessive daytime sleepiness would recommended having new PSG with MSLT completed. Patient confirms that study results can be released to their my account or will be communicated by mailed letter. Ques tions regarding diagnosis and management answered at this time. Recommendations: 1. Overnight PSG split for AHI>30 and CMS AHI>10. with MLST 2. Role of weight loss reviewed 3. Safe driving precautions extensively reviewed with the patient 4. Sleep apnea facts and figures handout reviewed 5. F/U after PSG with MSLT Plan discussed with the patient and they are in agreement. FAY BLAKE APRN CC: Abiel Wiggins MD documented in this encounter Plan of Treatment Scheduled Orders Name Type Priority Associated Diagnoses Orde r Schedule Sleep Study Diagnostic PSG / Split Night Sleep Center Routine Sleep apnea, unspecified type Expected: 07/14/2020, Expires: 07/13/2021 documented as of this encounter Visit Diagnoses Diagnosis Sleep apnea, unspecified type- Primary Narcolepsy and cataplexy Narcolepsy with cataplexy Insomnia, unspecified type documented in this encounter Care Teams Teletypist Relationship Specialty Start Date End Date Dina Diaz PA [address] [place] [address] [place] [address] PCP - General Internal Medicine 05/26/20 documented as of this encounter
--- OUTSIDE RECORDS SUMMARY | 2023-10-04 01:07 | XMS_ITS | Encounter Summary ---
Author Organization [facility] Address [facility] [place] [address] Care Team Providers Care Tar Man Name Role Phone Dina Diaz Primary Care Provider + Reason for Visit * Diagnostic Test (Routine) - Closed Specialty Diagnoses / Procedures Referred By John almaraz Referred To Contact Sleep Center Diagnoses Narcolepsy and cataplexy Procedures Actigraphy Fay Blake APRN [facility] [place] [address] [facility] Sleep Medicine [address] [place] [address] Referral ID Status Reason Start Date Expiration Date V isits Requested Visits Authorized [id number] Closed Specialty Service Requested 08/26/2020 08/26/2021 1 1 Encounter Details Date Type Department Care Team (Late st Contact Info) Description 09/10/2020 11:00 AM EDT Procedure visit Sleep Center at [facility] [address] [place] [address] Milagro Diehl MD [facility] SLE[place] [address] Hypersomnia Social History Tobacco Use Types Packs/Day Years [...] as of this encounter Progress Notes * Milagro Diehl MD - 09/10/2020 11:00 AM EDT Images from the original note were not included. REPORT OF ACTIGRAPHY: Monitoring period: 09/10/20-09/24/20 FINDINGS: Avg Bedtime:9:17PM Avg Rise time: 5:31 AM Comments on pattern of sleep (naps, etc):no napping identfied Average time in Bed: 8 hours, 14 min Average total sleep time: 7 hours Average Sleep onset latency: 14 minutes Average WASO: 39 minutes. Average Sleep Efficiency: 85% IMPRESSION: Review of actigraphy demonstrates an average total sleep time of 7 hrs per night during the monitoring period. Sleep/wake schedule was relatively stable and no napping identified. Actigraphy Report Subject ID: [id number], Emilee Wilhelm : 1970 Age: 50 Gender: Female Recording Period: from 09/10/2020 8:53:00 AM to 09/24/2020 6:31:30 AM [employer] Indications for Use: Summary Statistics: Bed Time Get Up Time Time in Bed (hours) Total Sleep Time (hours) Onset Latency (minutes) Sleep Efficiency (percent) WASO (minutes) #Awak. Min 7:25:30 PM 4:30:30 AM 6:56:00 4:44:30 0.00 66.55 24.50 16 Max 1:06:00 AM 8:02:00 AM 9:16:30 8:09:00 59.00 93.51 59.00 57 Avg 9:17:36 PM 5:31:36 AM 8:14:00 7:02:11 14.12 85.26 38.58 30.92 Interpretation: 1 Subject ID: [id number] : 1970 Actogram: Activity Scale: 4550/0 1 Subject ID: [id number] : 1970 Actogram: Activity Scale: 4550/0 1 Subject ID: [id number] : 1970 Actogram: Activity Scale: 4550/0 1 Subject ID: [id number] : 1970 Daily Statistics: Date Bed Time Get Up Time Time in Bed (hours) Total Sleep Time (hours) Onset Latency (minutes) Sleep Efficiency (percent) WASO (minutes) #Awak. Monday09/09/2020 NaN Dionisio Nichole NaN NaN Dionisio Nichole 09/10/2020 9:09:00 PM 5:29:00 AM 8:20:00 7:24:30 14.50 88.90 37.50 24 Monday09/11/2020 9:15:30 PM 5:20:30 AM 8:05:00 6:42:30 0.00 82.99 29.50 Monday09/12/2020 10:28:00 PM 5:35:30 AM 7:07:30 4:44:30 59.00 66.55 43.00 31 Monday09/13/2020 9:08:00 PM 5:28:30 AM 8:20:30 7:48:00 3.50 93.51 28.50 30 Monday09/14/2020 8:31:00 PM 4:30:30 AM 7:59:30 6:34:00 8.50 82.17 59.00 57 Monday09/15/2020 8:22:00 PM 5:28:00 AM 9:06:00 7:54:30 12.50 86.90 51.00 43 Monday09/16/2020 7:25:30 PM 4:42:00 AM 9:16:30 7:29:00 41.50 80.68 44.00 31 09/17/2020 9:23:30 PM 5:29:30 AM 8:06:00 7:22:00 0.00 90.95 24.50 16 Monday09/18/2020 8:49:30 PM 5:19:00 AM 8:29:30 7:20:30 0.00 86.46 47.00 35 Monday09/19/2020 1:06:00 AM 8:02:00 AM 6:56:00 5:53:30 0.00 84.98 33.50 25 Monday09/20/2020 9:06:30 PM 5:29:30 AM 8:23:00 7:13:00 32.50 86.08 29.00 23 Monday09/21/2020 8:21:00 PM 5:28:30 AM 9:07:30 8:09:00 4.50 89.32 32.50 27 Monday09/22/2020 9:43:30 PM 5:28:30 AM 7:45:00 6:53:30 7.00 88.92 42.50 34 Monday09/23/2020 Dionisio Nichole Each day represented above is from 12:00:00 PM to 12:00:00 PM on the next day. Summary Statistics: Bed Time Get Up Time Time in Bed (hours) Total Sleep Time (hours) Onset Latency (minutes) Sleep Efficiency (percent) WASO (minutes) #Awak. Min 7:25:30 PM 4:30:30 AM 6:56:00 4:44:30 0.00 66.55 24.50 16 Max 1:06:00 AM 8:02:00 AM 9:16:30 8:09:00 59.00 93.51 59.00 57 Avg 9:17:36 PM 5:31:36 AM 8:14:00 7:02:11 14.12 85.26 38.58 30.92 documented in this encounter Plan of Treatment Not on file documented as of this encounter Visit Diagnoses Diagnosis Hypersomnia Hypersomnia, unspecified documented in this encounter Care Teams Tar Man Relationship Specialty Start Date End Date Dina Diaz PA [address] [place] [address] [place] [address] PCP - General Internal Medicine 05/26/20 documented as of this encounter
--- OUTSIDE RECORDS SUMMARY | 2023-10-04 01:07 | XMS_ITS | Encounter Summary ---
Author Organization [facility] [place] [address] Care Team Providers Care Nurses Assistant Name Role Phone Unavailable Primary Care Provider Unavailabl e Reason for Visit * Reason Comments Procedure Urodynamics Study Encounter Details Date Type Department Care Team (Latest Contact Info) Description 07/20/2015 11:00 AM EDT Procedure visit Obstetrics [place] [address] Abundio Griffith MD [facility] DR OBSTETRICS [place] [address] Urinary incontinence, unspecified type; Urine, incontinence, stress female Social History Tobacco Use Types Packs/Day [...] Sign Reading Time Taken Comments Blood Pressure 98/67 07/20/2015 10:52 AM EDT Pulse 105 07/20/2015 10:52 AM EDT Temperature - - Respiratory Rate - - Oxygen Saturation - - Inhaled Oxygen Concentration - - Weight - - Height - - Body Mass Index - - documented in this encounter Progress Notes * Abundio Griffith MD - 07/20/2015 6:48 PM EDT Female Pelvic Medicine and Reconstructive Surgery @ [facility] Urodynamic Procedure Note Patient name: Emilee Bernal Final Impression: ?? Urinary incontinence, uncertain etiology by bladder diary review. Confirmed stress urinary incontinence by urodynamic testing. Recommendations: ?? We discussed options, including a trial of an incontinence pessary, pelvic floor exercises, weight loss, surgery She has tried most interventions previously. She would like to proceed with a mid-urethral sling procedure. CONSENT: I discussed the planned procedure with the patient, including risks and benefits. We reviewed the consent form, which the patient has signed. As part of our discussion, we reviewed risks including but not limited to infection, bleeding, injury to bladder, urethra. We discussed that we perform cystoscopy to assure no urinary tract injury prior to ending the procedure. We discussed rare risks of nerve injury due to positioning, retraction, or sutures. We also reviewed potential changes in bladder and sexual function after anti- incontinence operations. We reviewed risks of mesh erosion that can occur even many years out from surgery and risks of persistent pain. We discussed the November 2007 and August 2010 FDA warning regarding mesh placed transvaginally for prolapse repairs and the different applications for mesh in the pelvic area carry different risks. We reviewed that mesh erosion risk with a sling is ~ 3%. INDICATIONS FOR URODYNAMICS: ( ) Voiding problems (x) Urinary incontinence ( ) Pelvic organ prolapse ( ) Other: Multi-channel urodynamic evaluation procedure was verbally explained to the patient including risksof possible urinary tract infection and benefit of information from the testing. Verbal consent obtained. UROFLOWMETRY: Total Volume Voided: 582.8 mL Qmax: 31.9 mL/sec Qav.3 mL/sec Post void residual: 25 mL (obtained via catheter) URINE ANALYSIS: negative for all components CYSTOMETROGRAM: 7 Russian T-DOC catheter was inserted into the bladder. A 7 Russian T-DOC catheter was placed in the vagina/rectum for measurement of abdominal pressures. Filling was performed via a 7 Russian T-DOC catheter in the sitting position at a rate of 50cc/min. . Detrusor pressure at 0cc: 1 cm H2O S1-First sensation: 82 mL S2-First desire: 242 mL S3-Strong desire: 294 mL S4- Maximum cystometric capacity: 300 mL Detrusor pressure at maximum cystometric capacity: 4 cm H2O EMG: (x) not done ( ) stable during filling ( ) appropriate increased activity with Valsalva, cough ( ) appropriate relaxation with voiding Uninhibited detrusor contractions associated with urge: no Uninhibited detrusor contractions associated with urinary leakage : no Leakage seen with stress maneuvers (valsalva/cough): yes Leak point pressure testing performed at 200 cc at 50cc increments and at capacity. Maneuver Leak? Volume (mL) Pressure Sitting w/o prolapse support yes 200, 300 157 - 186 cm H2O (Pves) Sitting with prolapse support (scopette) n/a n/a cm H2O (Pves) Urethral catheter out w/o prolapse support n/a n/a cm H2O (Pabd) Urethral catheter out with prolapse support (scopette) n/a n/a cm H2O (Pabd) Urethral Pressure Profile: The urethral catheter was withdrawn until the peak urethral pressure was measured (93 cm H20). The maximum urethral closure pressure (mUCP) was 65 cm H20. PRESSURE-FLOW VOIDING STUDY: Voided: 321 mL Maximum flow rate (Qmax): 16 mL/sec Detrusor pressure (Pdet) at Qmax: 38 cm H2O Comments: (x) Abdominal straining with void ( ) Obstruction by Blaivis / Groutz nomogram ( ) Other: Symptom diagnosis: Storage symptoms ( ) None ( ) Increased daytime frequency ( ) Nocturia ( ) Urgency (?) Stress urinary incontinence (?) Urge urinary incontinence ( ) Mixed urinary incontinence ( ) Nocturnal enuresis ( ) Continuous urinary incontinence Voiding symptoms (x ) None ( ) Slow stream ( ) Splitting/spraying ( ) Straining (muscular effort to initiate, maintain or improve flow) ( ) Feeling of incomplete emptying Other Diagnoses: ( ) Urodynamic Diagnosis: Filling Phase Diagnoses: Sensation (x) Normal bladder sensation ( ) Increased bladder sensation (First sensation < 20cc) ( ) Reduced bladder sensation (FS > 250cc & First desire > 400cc & Strong desire >600cc) ( ) Absent bladder sensation (NO sensation to void with a volume > 600cc) ( ) Urgency Filling Phase Diagnosis: Detrusor Function (x) Normal filling detrusor function ( ) Detrusor overactivity ( ) Phasic detrusor overactivity ( ) Terminal detrusor overactivity ( ) Detrusor overactivity with incontinence Filling Phase Diagnosis: Urethral closure mechanism ( ) Normal filling phase (x) Urodynamic stress urinary incontinence Voiding Phase Diagnoses: Detrusor function during voiding (x) Normal voiding detrusor function ( ) Detrusor underactivity ( ) Acontractile detrusor Voiding Phase Diagnoses: Urethral function during voiding (If EMG not done, may be less specific source) (x) Normal urethral function during voiding ( ) Bladder outlet obstruction ( ) Dysfunctional voiding ( ) 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 I was present for the pertinent portions of the urodynamic testing and fully reviewed and edited the results. ABUNDIO GRIFFITH MD Division of Female Pelvic Medicine and Reconstructive Surgery documented in this encounter Plan of Treatment Not on file documented as of this encounter Procedures Procedure Name Priority Date/Time Associated Diagnosis Comments UROLOGY SCAN 2015 12:00 AM EDT URETHRAL SUSPENSION,SLING\FA SCIA OR SYNTHETIC Routine 07/20/2015 6:55 PM EDT Urine, incontinence, stress female POCT URINE DIPSTICK Routine 07/20/2015 Urinary incontinence, unspecified type documented in this encounter Results * SCAN DOC: UROLOGY (2015 12:00 AM EDT) Scanning Provider MEDIA MGR SCAN EXT O RDR/RSLT * POCT urine dipstick (07/20/2015) POC Leuk, UA Neg. Negative - Negative POC Nitrite, UA Neg. Negative - Negative POC Blood, UA Neg. Negative - Negative oscar/uL Abundio Griffith MD POINT OF CARE TEST O RDERABLES documented in this encounter Visit Diagnoses Diagnosis Urinary incontinence, unspecified type Urine, incontinence, stress female Female stress incontinence documented in this encounter
--- OUTSIDE RECORDS SUMMARY | 2023-10-04 01:07 | XMS_ITS | Encounter Summary ---
[place] [address] Care Team Providers Care Glass Blower Name Role Phone Unavailable Primary Care Provider Unavailabl e Encounter Details Date Type Department Care Team (Late st Contact Info) Description 04/24/2017 Ancillary Procedure [place] [id number] Dina Diaz PA [address] [place] [id number] Social History Tobacco Use Types Packs/Day Years [...] Comments FILM LIBRARY STORAGE ONLY MAMMO Routine 04/24/2017 12:00 AM EST documented in this encounter Results * Film Library- Storage Only Mammo (04/24/2017 12:00 AM EST) Narrative [facility] - 01/04/2021 1:57 PM EST This exam is auto-finalizing. It's purpose is for storage only. [facility] FILM LIBRARY ORDERABLES [place], [place] documented in this encounter Visit Diagnoses Not on filedocumented in this encounter
--- OUTSIDE RECORDS SUMMARY | 2023-10-04 01:07 | XMS_ITS | Encounter Summary ---
Author Organization [facility] [place] [address] Care Team Providers Care Wax Pattern Coater Name Role Phone Dina Diaz Primary Care Provider + Encounter Details Date Type Department Care Team (Late st Contact Info) Description 12/25/2020 Telephone [address] Center [address] [facility] [address] [place] [address] Fouzia Donis Social History Tobacco Use Types Packs/Day Years [...] encounter Miscellaneous Notes * Telephone Encounter - Fouzia Donis - 12/25/2020 12:26 PM EDT I called pt and left a message to call and schedule. Per Meliza if CP's 4:15 appt on 01/18 is still available, pt could be seen by video visit. documented in this encounter Plan of Treatment Not on file documented as of this encounter Visit Diagnoses Not on filedocumented in this encounter Care Teams Wax Pattern Coater Relationship Specialty Start Date End Date Dina Diaz PA [address] [place] [address] [place] [address] PCP - General Internal Medicine 05/26/20 documented as of this encounter
--- OUTSIDE RECORDS SUMMARY | 2023-10-04 01:07 | XMS_ITS | Encounter Summary ---
Author Organization [facility] Address [place] [address] Care Team Providers Care Surface Hydrologist Name Role Phone Unavailable Primary Care Provider Unavailabl e Reason for Referral * Consultation (Routine) - Specialty Diagnoses / Procedures Referred By Contac t Referred To Contact Sleep Center Diagnoses Bipolar 2 disorder Abbey Arnold MD [facility] [place] [address] [facility] Sleep Medicine [address] [place] [address] Referral ID Status Reason Start Date Expiration Date V isits Requested Visits Authorized [id number] Consult, Test & Treat Connection Center 09/28/2015 09/27/2016 1 1 Encounter Details Date Type Department Care Team (Late st Contact Info) Description 09/28/2015 3:00 PM EDT Office Visit Psychiatry [place] [address] Abbey Arnold MD [facility] [place] [address] Bipolar 2 disorder (Primary Dx); Encounter for long-term (current) drug use Social History Tobacco Use Types Packs/Day Years [...] Sign Reading Time Taken Comments Blood Pressure 108/74 09/28/2015 3:12 PM EDT Pulse 98 09/28/2015 3:12 PM EDT Temperature - - Respiratory Rate - - Oxygen Saturation - - Inhaled Oxygen Concentration - - Weight - - Height - - Body Mass Index - - documented in this encounter Patient Instructions * Patient Instructions* Abbey Arnold MD - 09/28/2015 3:00 PM EDT Start quetiapine 25 mg nightly. Can take an additional 25 mg nightly if needed. Reduce trazodone to 100 mg nightly. documented in this encounter Progress Notes * Keon Nielson MD - 09/28/2015 3:00 PM EDT PSYCHIATRY TEACHING PHYSICIAN INVOLVEMENT Location: [facility], [address] Attending Physician: Keon Nielson MD Resident name: Abbey Arnold MD I saw and evaluated the patient with Dr Arnold. Please see her note for details. I reviewed the patient's history during the visit and I agree with the details as written. My exam confirms the resident's findings. The assessment and plan were formulated in discussion with me and I agree with them as documented. Major issues addressed/discussed: Emilee Bernal is a 45 y.o. female with h/o BPAD2 and PTSD. Recent increase in Lamictal and Trazodone not helpful - mood slightly worse, not sleeping well, some passive SI (no intent). Tried lithium, depakote and atypical anti-psychotics in the past with little success. Open to trial of low dose Seroquel to help with sleep and mood. Will taper and stop Trazodone. Risks/benefits discussed. KEON NIELSON MD * Abbey Arnold MD - 09/28/2015 3:00 PM EDT ESTABLISHED ADULT PATIENT OFFICE VISIT NOTE Time Spent: 20 min Attendee(s): pt This patient was seen with Dr. Keon Nielson See her note for confirmatory and/or revisionary documentation. HISTORY Chief Complaint: Emilee Bernal is a 45 y.o. Female presents today for medication management/follow up HPI: () Patient reports that since her last appointment she feels that the depression has worsened, and does not feel that there has been any notable benefit from the lamotrigine. She denies any problems with the new dose, however, and has had no adverse effects. She notes that her sleep remains a problem,and that trazodone has only inconsistently helped. She reports that some nights she doesn't sleep at all and others she sleeps too much, without much explanation why. She has noticed more prominent irritability and anger in the last month as well, as well as fleeting passive SI (without plan/intent). Overall she continues to feel fatigued and has difficulty with motivation. She states I feel like I'm in a war with myself. She has been able to get a therapist at [facility], and states she met her forthe first time earlier today. Quality: worsened Severity: mod-severe Duration: chronic Timing: daily Context: recently increase medication Modifying factors: no improvement from med changes Associated S&S: irritability Most recent PHQ9: PHQ9 09/23/2015 Little interest or pleasure More than half the days Down, depressed, hopeless More than half the days Trouble sleeping Nearly every day Tired or no energy Nearly every day Poor appetite or overeating More than half the days Feeling like a failure Nearly every day Trouble concentrating (newspaper) More than half the days Moving or speaking slowly Not at all Would be better off Not at all PHQ9 Scores 17 (Moderately Severe Depression) Current Medications: Current Outpatient Prescriptions Medication Sig Dispense Refill ??? fluticasone (FLONASE) 50 mcg/actuation Spur, Suspension 1 spray by Each Nare route 2 times daily. ??? fexofenadine (PAULIE) 180 mg Tablet Take 180 mg by mouth daily. ??? lamoTRIgine (LAMICTAL) 200 mg Tablet Take 1 tablet by mouth 2 times daily. 60 tablet 2 ??? traZODone (DESYREL) 100 mg Tablet Take 1.5 tablets by mouth nightly. (Patient taking differently: Take 200 mg by mouth nightly.) 60 tablet 2 ??? hydrOXYzine (ATARAX) 25 mg Tablet Take 1 tablet by mouth nightly. 30 tablet 2 ??? EPINEPHrine (EPIPEN) 0.3 mg/0.3 mL (1:1,000) Auto-Injector Inject 0.3 mLs into the muscle once as needed. (Patient not taking: Reported on 09/28/2015) 1 each 1 ??? diphenhydrAMINE (BENADRYL) 25 mg capsule Take 25-50 mg by mouth as needed. No current facility-administered medications for this visit. Pertinent Medication Side Effects: denies Review of Systems: (02/28/09) Constitutional: Eyes: ENT: Cardiovascular: Respiratory: GI: intermittent nausea, no vomiting : Musculoskeletal: Integumentary: Neurological: Psychiatric: See HPI above Endocrine: Hematologic/Lymphatic: Allergic/Immunological: See reviewed allergies PFSH: () Past Medical/Psychiatric History: Patient provides a list of previously trialled medications: Nortriptyline Sonota Ambien Lunesta Lamotrigine Effexor Paxil Wellbutrin Lexapro Abilify Seroquel (worsened irritability) [place] (s/e at effective doses) Depakote (seizure) Family Psychiatric and Medical History: no interval change Social History: no interval change EXAM [08/05/13 bullets (incl VS)] Constitutional System ? Vital Signs: Blood pressure 108/74, pulse 98. Musculoskeletal System ? Muscle Strength/Tone (note atrophy, abnormal movements): no abnormalities noted ? Gait and Station: WNL Psychiatric System ? General Appearance/Behavior: female patient, appropriately groomed/dressed, interactive/cooperative with assessment. ? Speech: normal volume/rate/prosody ? Thought Process: linear/coherent/goal-oriented ? Associations: tight ? Abnormal Thoughts and Perceptions / Thought Content: Homicidality / Violent Thoughts: none reported/elicited Suicidality: reports fleeting passive SI without plan/intent Hallucinations: none reported/elicited Delusions: none reported/elicited Obsessions: none reported/elicited ? Judgment and Insight: fair ? Mood & Affect: in between/affect is fatigued, mildly irritable ? Orientation: x3 ? Attention/Concentration: alert/attentive and without need for redirection ? Memory: grossly intact to recent/remote events ? Language: fluent ? Fund of Knowledge: average Psychotherapeutic Interventions and Response: N/a MEDICAL DECISION MAKING ASSESSMENT: Emilee Bernal is a 45 y.o. Female with bipolar disorder, current episode depressed. Her symptoms are minimally worse. She has had no significant improvement with increase in lamotrigineand trazodone, and sleep in particular remains a problem. Overall depressive symptoms are reported to be worsened, including fleeting SI without plan/intent. No acute safety issues were identified during this assessment. Patient was able to get set up with a therapist at [facility], however, which is encouraging as her stated goals are to learn to deal with my mood swings and deal with flashbacks. We discussed the role of medications in meeting her goals, and after discussion of R/B/SE she is agreeable to a low-dose trial of quetiapine (with careful monitoring of her reported irritability with previous trials), primarily to aid with sleep, but ultimately for treatment of her mood. PLAN: Continue current medications with the following adjustments Start quetiapine 25 mg nightly (may increase to 50 mg if tolerated) Reduce trazodone to 100 mg nightly Patient to obtain labs (fasting lipids, a1c) prior to starting quetiapine Patient to continue meeting with new therapist RTC in 4-6 weeks Patient Instruction/Education provided: Patient provided written and verbal instructions regarding treatment plan. Patient understands the plan? Yes documented in this encounter Miscellaneous Notes * Addendum Note - Abbey Arnold MD - 09/28/2015 6:04 PM EDTAddended by: ABBEY ARNOLD on: 09/28/2015 06:04 PM Modules accepted: Orders documented in this encounter Plan of Treatment Scheduled Referrals Name Type Priority Associated Diagnoses Orde r Schedule Referral to Sleep Disorders Center Outpatient Referral Routine Bipolar 2 disorder Ordered: 09/28/2015 documented as of this encounter Visit Diagnoses Diagnosis Bipolar 2 disorder- Primary Other bipolar disorders Encounter for long-term (current) drug use Encounter for long-term (current) use of other medications documented in this encounter
--- OUTSIDE RECORDS SUMMARY | 2023-10-04 01:07 | XMS_ITS | Encounter Summary ---
[facility] [place] [address] Care Team Providers Care Property Consultant Name Role Phone Unavailable Primary Care Provider Unavailabl e Reason for Visit * Reason Onset Date Comments Post-op Problem 10/26/2015 Encounter Details Date Type Department Care Team (Late st Contact Info) Description 10/26/2015 Telephone Obstetrics [place] [phone] Joyce Landa, RN Post-op Problem Social History Tobacco Use Types Packs/Day Years [...] encounter Miscellaneous Notes * Telephone Encounter - Joyce Lnada RN - 10/26/2015 3:53 PM EDT Caller: Joyce Landa RN Learning Needs Assessment Reviewed: Yes Subjective Patient presents with: Post-op Problem Objective/Assessment Attempted to return patient's call. She is post op 10/13/15 for a sling procedure for stress urinary incontinence. Symptom onset:10/13/15 Location:Bladder Duration:NA Characteristics:Bladder sling placed on Aggravating factors:NA Relieving factors:NA Timing:NA Severity:NA Pertinent Past Medical History:Urinary stress incontinence Plan Intervention/Plan/ Follow Up: Attempted to return patient's call and message let asking her to callback to the clinic. Awaiting call back from patient. documented in this encounter Plan of Treatment Not on file documented as of this encounter Visit Diagnoses Not on filedocumented in this encounter
--- OUTSIDE RECORDS SUMMARY | 2023-10-04 01:07 | XMS_ITS | Encounter Summary ---
Author Organization [facility] [place] [address] Care Team Providers Care Masonry Installer Name Role Phone Dina Diaz Primary Care Provider + Encounter Details Date Type Department Care Team (Late st Contact Info) Description 08/26/2020 Telephone Sleep Center at [facility] [address] [place] [address] Fouzia Donis Social History Tobacco Use Types [...] on filedocumented in this encounter Care Teams Masonry Installer Relationship Specialty Start Date End Date Dina Diaz PA [address] [place] [id number] PCP - General Internal Medicine 05/26/20 documented as of this encounter
--- OUTSIDE RECORDS SUMMARY | 2023-10-04 01:07 | XMS_ITS | Encounter Summary ---
Author Organization [facility] [place] [address] Care Team Providers Care Marketing Services Coordinator Name Role Phone Unavailable Primary Care Provider Unavailabl e Reason for Visit * Auth/Cert Specialty Diagnoses / Procedures Referred By Contac t Referred To Contact Diagnoses Stress incontinence (female) (male) Stress urinary incontinence Procedures PRO SLING OPER STRES INCONTINENCE URETHRAL SUSPENSION, SLING\FASCIA OR SYNTHETIC Referral ID Status Reason Start Date Expiration Date Visits Re quested Visits Authorized [id number] 1 1 Encounter Details Date Type Department Care Team (Late st Contact Info) Description 10/13/2015 7:35 AM EDT Anesthesia Event [place] [address] Jessa Marte MD [facility] [place] [address] Nathan Perdue MD [facility] [place] [address] Anesthesia Record Procedure Summary Procedure Name Responsible Anesthesiologist Anesthesia Start Time Anesthesia Stop Time URETHRAL SUSPENSION, SLING\FASCIA OR SYNTHETIC (WRVU 12.13) (Pelvis) Jessa Marte MD 10/13/15 0735 10/13/15 0903 Events Date Time Event Comment 10/13/2015 0725 0735 AN Verify 0735 Start 0735 An Start Data 0743 An Induction 0743 An Intubation 0745 Anesthesia Ready 0851 Extubation/LMA Out 0856 an stop data 0903 Recovery or ICU Handoff Yanelis ent care was transferred to the destination unit staff after review of the patient's medical history, current anesthetic/surgical status and plan, according to the Provider Handoff Checklist. 0903 Stop Meds Name Total Midazolam 2 mg fentaNYL 50 mcg Propofol 300 mg PHENYLephrine 320 mcg Ondansetron 4 mg ceFAZolin (ANCEF) 2g in dextrose 5% 50 m L 2 g Propofol INF 208.03 mg Ketorolac 15 mg lactated ringers infusion 1,000 mL 1,200 mL * Agents Name O2 Air N2O Sevoflurane (et) * Blood No blood administrations on file. Lines, Drains, and Airways Type Details Placement Removal Incision 10/13/15; vagina; 10/25/21 (LDA cleanup utility RA#[id number]); 1715 (LDA cleanup utility RA#[id number]) 10/13/15 0000 by Kylee Mishra RN 10/25/21 1715 by Trung Gill (RETIRED) Peripheral IV Line - Single Lumen 10/13/15; 0704; metacarpal vein left (top of hand); [id number] catheter system; 20 gauge; BSmithRN; intradermal injection; 10/13/15; 1051 10/13/15 0704 by Regulo Donis RN 10/13/15 1051 by Mandie Wooten RN Supraglottic Mask Ventilation: Ea sy (1); LMA Type: iGel; LMA Size: 3; Inserted by: Catracho Britt CRNA; Removal Date: 10/13/15; Removal Time: 0851 10/13/15 0743 by Liliya Britt CRNA 10/13/15 0851 by Liliya Britt CRNA Urethral Catheter 10/13/15; 0803; Genitourinary surgery; indwelling double lumen catheter; 100% silicone; 14; inserted at this facility; 1; 5; 10; none; drainage bag to dependent drainage; 10/13/15; 1051 10/13/15 0803 by Kylee Mishra RN 10/13/15 1051 by Mandie Wooten RN documented in this encounter Social History [...] OR Notes * Anesthesia Postprocedure Evaluation - Jessa Marte MD - 10/13/2015 11:09 AM EDT [facility] [place] Department of Anesthesiology Post-procedure Note Patient: Emilee Bernal Procedure Summary Date Anesthesia Start Anesthesia Stop Room / Location 10/13/[address] [place] [address] OR / [facility] MAIN OR Procedure Diagnosis Surgeon Responsible Provider URETHRAL SUSPENSION, SLING\FASCIA OR SYNTHETIC (N/A Pelvis) Urine, incontinence, stress female (Stress urinary incontinence) Abundio Griffith MD Fillinger, Mary P, MD All Anesthesia Providers: Anesthesiologist: Jessa Marte MD GARBAGE COLLECTOR: Liliya Britt CRNA Last (1hr) Vitals: BP 101/60 (10/13/15 1016) Temp Pulse 78 (10/13/15 1016) Resp 18 (10/13/15 1016) SpO2 98 % (10/13/15 1016) Patient Location: PACU/[facility] Level of Consciousness: Awake and Alert Pain Management: Satisfactory Analgesia PONV: None Cardiovascular Status: Hemodynamically Stable Respiratory Status: Room Air Postoperative Fluid Status: Intravascular EUvolemia Possible Anesthetic Complications: NONE apparent at time of evaluation Final Primary Anesthesia Type: General (The anesthetic type performed was the same as planned.) Comments: Pt states that she has left leg ache. I explained that this is most likely due to lithotomy positioning and should improve over time. I advised her to call her team if this persists or if she has questions. Otherwise, pt was very satisfied with her anesthetic. * Anesthesia Preprocedure Evaluation - Jessa Marte MD - 10/12/2015 2:31 PM EDT Pre-Anesthesia Evaluation for: Emilee Bernal a 45 y.o. female. Procedure(s): URETHRAL SUSPENSION, SLING\FASCIA OR SYNTHETIC Patient Active Problem List Diagnosis ??? Stress incontinence, female ??? Vitamin D deficiency ??? Neck pain, chronic ??? Polyp of colon, adenomatous 09/03/13. 5 yr f/u. ??? Thyroid nodule ??? DDD (degenerative disc disease), lumbar ??? Low back pain ??? LSIL (low grade squamous intraepithelial lesion) on Pap smear July 2013 Scanned documents. With HPV+ ??? Hypothyroidism Will not take medication for weight gain side effect ??? Vitamin B 12 deficiency ??? Sleep apnea ??? PTSD (post-traumatic stress disorder) ??? Bipolar disorder meds as of . Lamictal 100mg BID. Soudan ER 450mg 1 02/28 tabs qhs. cymbalta 60mg. Zalephon for sleep. Has seen Dr. Singer at [facility]. ??? Overactive thyroid gland Dr Barlow, Endocrine at [facility] Partial thyroidectomy planned Jan 2014 ??? Fibromyalgia ??? Work related injury ??? Back pain ??? Allergic rhinitis Past Medical History Diagnosis Date ??? Allergic state ??? Anxiety ??? Bipolar disorder ??? Degenerative disc disease ??? Depression ??? Environmental allergies with anaphylaxis ??? Fibrocystic breast disease ??? Fibromyalgia ??? Gestational diabetes ??? Lower back injury 02/05/2013 ??? Lyme disease ??? PTSD (post-traumatic stress disorder) ??? Sleep apnea ??? Thyroid disorder Past Surgical History Procedure Laterality Date ??? Mastectomy, partial ??? Rotator cuff repair Left 2009 ??? Septoplasty Nov 2006 tonsils and upper palate reshaping ??? Endometrial ablation ??? Cholecystectomy ??? Tubal ligation ??? Colposcopy 07/30/13 ??? Thyroidectomy, partial 02/09 ??? Tonsillectomy Nov 2006 ??? Uvulopalatopharygoplasty Nov 2006 Social History Substance Use Topics ??? Smoking status: Never Smoker ??? Smokeless tobacco: Never Used ??? Alcohol use No History Drug Use No Allergies Allergen Reactions ??? Abilify [Aripiprazole] Other (See Comments) hallucinations ??? Morphine Sulfate Nausea And Vomiting ??? Oxycodone-Acetaminophen Other (See Comments) rapid heart rate ??? Amitriptyline Hcl ??? Hydrocodone ??? Imipramine ??? Oxycodone Hcl ??? Soy Medications: MAR and/or home medications have been reviewed. Physical Exam: There were no vitals filed for this visit. There is no height or weight on file to calculate BMI. Airway Assessment: Mallampati: II TM distance: >3 FB Neck ROM: full Cardiovascular Assessment: Rhythm: regular Pulmonary Assessment: Dental Assessment: Comment: None loose. Misc Assessment: Anesthesia Plan: ASA 2 general, with a(n) intravenous induction 45yo, 76.2kg female with PMH significant for sleep apnea, mood disorder, chronic back pain, hypothyroidism, stress incontinence to OR for urethral suspension with Dr. Griffith. Anesthesia Hx: No previous anesthetic records available. Denies: CAD, SOB, CP, URI symptoms, uncontrolled GERD Good exercise tolerance PMH negative for HTN, DM, reactive airway disease, liver/kidney disease, excessive bleeding NPO status: appropriately NPO Plan GA c LMA Standard ASA monitors Additional IV access as needed Nathan Perdue MD Anesthesiology, CA-1 Pager #[phone] Head Teller: As above. Pt had hx YAHIR on CPAP in the past. S/P UPP in 2006. Pt has not used CPAP since that time. Denies CP, SOB. Good functional capacity. Denies cardiac, pulmonary, hepatic, renal disease. Denies GERD. Denies problems with anesthesia, self or family. Plan GA + LMA. Risks (including, but not limited to, awareness, nerve damage, damage to the major organs, ) benefits, alternatives discussed. Questions solicited and answered. Consent obtained. Region - Other Informed Consent: Anesthetic plan and risks discussed with patient. Plan discussed with GARBAGE COLLECTOR. [facility] Staff Note documented in this encounter Plan of Treatment Not on file documented as of this encounter Visit Diagnoses Not on filedocumented in this encounter Administered Medications Inactive Administered Medications - up to 3 most recent administrations Medication Order MAR Action Action Date Dose Rate Site ceFAZolin (ANCEF) 2g in dextrose 5% 50 mL 2 g, Intravenous, ONCE, 1 dose, On Mon10/13/15 at 0730, Administer over 30 Minutes, Redose every 3 hours if CrCl is greater than 20. Redose every 8 hours if CrCl is less than 20., Day of Surgery (Day of Procedure), Indication for (Active or Suspected): Prophylaxis Given 10/13/2015 7:53 AM EDT 2 g fentaNYL 50 mcg/mL multi-dose injection PRN, Starting on Mon10/13/15 at 0755, Until Mon10/13/15 at 0903, Pain, Anesthesia Intra-op, Routine Given 10/13/2015 8:21 AM EDT 25 mcg Given 10/13/2015 7:55 AM EDT 25 mcg ketorolac (TORADOL) injection PRN, Starting on Mon10/13/15 at 0848, Until Mon10/13/15 at 0903, Pain, Anesthesia Intra-op, Routine Given 10/13/2015 8:48 AM EDT 15 mg lactated ringers infusion 1,000 mL 1,000 mL, at 100 mL/hr, Intravenous, CONTINUOUS, Starting on Mon10/13/15 at 0730, Until Mon10/13/15 at 1254, Day of Surgery (Day of Procedure) New Bag 10/13/2015 7:35 AM EDT New Bag 10/13/2015 7:05 AM EDT 1,000 mLs 100 mL/hr midazolam (PF) (VERSED) 1 mg/mL multi-dose injection PRN, Starting on Mon10/13/15 at 0735, Until Mon10/13/15 at 0903, Sleep, Anesthesia Intra-op, Routine Given 10/13/2015 7:35 AM EDT 2 mg ondansetron (ZOFRAN) injection PRN, Starting on Mon10/13/15 at 0828, Until Mon10/13/15 at 0903, Nausea, Anesthesia Intra-op, Routine Given 10/13/2015 8:28 AM EDT 4 mg PHENYLephrine HCl in NS (PF) (ENMANUEL-SYNEPHRINE) 0.8 mg/10 mL (80 mcg/mL) multi-dose injection Syrg PRN, Starting on Mon10/13/15 at 0743, Until Mon10/13/15 at 0903, Anesthesia Intra-op, Routine Given 10/13/2015 8:35 AM EDT 40 mcg Given 10/13/2015 8:15 AM EDT 40 mcg Given 10/13/2015 7:53 AM EDT 80 mcg propofol (DIPRIVAN) 10 mg/mL bolus injection (Anesthesia) PRN, Starting on Mon10/13/15 at 0743, Until Mon10/13/15 at 0903, Anesthesia Intra-op Given 10/13/2015 7:43 AM EDT 300 mg propofol (DIPRIVAN) infusion CONTINUOUS PRN, Starting on Mon10/13/15 at 0749, Until Mon10/13/15 at 0903, Anesthesia Intra-op, Routine Rate/Dose Change 10/13/2015 8:42 AM EDT 100 mcg/kg/min 45.7 mL/hr Rate/Dose Change 10/13/2015 8:38 AM EDT 75 mcg/kg/min 34.3 mL/hr Rate/Dose Change 10/13/2015 8:30 AM EDT 50 mcg/kg/min 22.9 mL/hr documented in this encounter
--- OUTSIDE RECORDS SUMMARY | 2023-10-04 01:07 | XMS_ITS | Encounter Summary ---
Author Organization [facility] [place] [address] Care Team Providers Care Water Pump Servicer Name Role Phone Dina Diaz Primary Care Provider + Encounter Details Date Type Department Care Team (Late st Contact Info) Description 07/22/2020 Telephone Sleep Center at [facility] [address] [place] [address] Fouzia Donis Social History Tobacco Use Types [...] on filedocumented in this encounter Care Teams Water Pump Servicer Relationship Specialty Start Date End Date Dina Diaz PA [address] [place] [id number] PCP - General Internal Medicine 05/26/20 documented as of this encounter
--- OUTSIDE RECORDS SUMMARY | 2023-10-04 01:07 | XMS_ITS | Encounter Summary ---
Author Organization [facility] Address [facility] [place] [address] Care Team Providers Care Student Accounts Manager Name Role Phone Unavailable Primary Care Provider Unavailabl e Encounter Details Date Type Department Care Team (Late st Contact Info) Description 11/12/2015 5:48 PM EDT - 11/12/2015 9:42 PM EDT Hospital Encounter [facility] [place] Adan, PA [address] [place] [address] Social History Tobacco Use Types Packs/Day Years [...] PM EDT documented as of this encounter Medications at Time of Discharge Medication Sig Dispensed Refills Start Date End Date EPINEPHrine (EPIPEN) 0.3 mg/0.3 mL (1:1,000) Auto-InjectorIndicatio ns:Allergic rhinitis, unspecified allergic rhinitis type Inject 0.3 mLs into the muscle once as needed. 1 each 1 01/08/2015 risperiDONE (RISPERDAL) 1 mg TabletIndications:depr ession associated with bipolar disorder Take 1 tablet by mouth daily. Indications: DEPRESSION ASSOCIATED WITH BIPOLAR DISORDER 30 tablet 1 10/28/2015 07/14/2020 hydrOXYzine (ATARAX) 25 mg Tablet Take 3 tablets by mouth nightly. 270 tablet 2 10/20/2015 07/14/2020 HYDROmorphone (DILAUDID) 2 mg Tablet Take 1 tablet by mouth every 3 hours as needed for Pain. 10 tablet 10/13/2015 07/14/2020 loratadine (CLARITIN) 10 mg Tablet Take 10 mg by mouth daily. 07/14/2020 cholecalciferol, Vitamin D3, 1,000 unit Capsule Take 5,000 Units by mouth. 06/29/2021 Biotin 5 mg Capsule Take 1 capsule by mouth. 07/14/2020 multivitamin (THERAGRAN) Tablet Take 1 tablet by mouth daily. 07/14/2020 fluticasone (FLONASE) 50 mcg/actuation Dierks, Suspension 1 spray by Each Nare route 2 times daily. 11/23/2021 fexofenadine (PAULIE) 180 mg Tablet Take 180 mg by mouth daily. 07/14/2020 diphenhydrAMINE (BENADRYL) 25 mg capsule Take 25-50 mg by mouth as needed. 08/02/2010 07/14/2020 documented as of this encounter Plan of Treatment Not on file documented as of this encounter Visit Diagnoses Not on filedocumented in this encounter
--- OUTSIDE RECORDS SUMMARY | 2023-10-04 01:07 | XMS_ITS | Encounter Summary ---
Author Organization [facility] [address] Care Team Providers Care Graphic Arts Instructor Name Role Phone Dina Diaz Primary Care Provider + Encounter Details Date Type Department Care Team (Late st Contact Info) Description 10/05/2020 Orders Only Sleep Center at [facility] [address] [place] [address] Fay Blake APRN [facility] [place] [address] YAHIR (obstructive sleep apnea) Social History Tobacco Use Types Packs/Day Years [...] encounter Visit Diagnoses Diagnosis YAHIR (obstructive sleep apnea) Obstructive sleep apnea (adult) (pediatric) documented in this encounter Care Teams Graphic Arts Instructor Relationship Specialty Start Date End Date Dina Diaz PA [address] [place] [phone] PCP - General Internal Medicine 05/26/20 documented as of this encounter
--- OUTSIDE RECORDS SUMMARY | 2023-10-04 01:07 | XMS_ITS | Encounter Summary ---
Author Organization [facility] [place] [address] Care Team Providers Care Copra Processor Name Role Phone Unavailable Primary Care Provider Unavailabl e Encounter Details Date Type Department Care Team (Late st Contact Info) Description 08/04/2015 1:20 PM EDT Office Visit Walk in Clinic at [address] [address] Megha Mcknight, GRINDER SET UP OPERATOR EXTERNAL [address] [place] [id number] Social History Tobacco Use Types Packs/Day Years [...]
--- OUTSIDE RECORDS SUMMARY | 2023-10-04 01:07 | XMS_ITS | Encounter Summary ---
[place] [address] Care Team Providers Care Campus Supervisor Name Role Phone Dina Diaz Primary Care Provider + Encounter Details Date Type Department Care Team (Late st Contact Info) Description 01/01/2021 Ancillary Procedure [place] [address] Dina Diaz PA [address] [place] [id number] Social History Tobacco Use Types Packs/Day Years [...] Comments FILM LIBRARY STORAGE ONLY MAMMO Routine 01/01/2021 12:00 AM EDT documented in this encounter Results * Film Library- Storage Only Mammo (01/01/2021 12:00 AM EDT) Narrative [facility] - 01/04/2021 1:58 PM EST This exam is auto-finalizing. It's purpose is for storage only. Dina MONTEIRO IMG FILM LIBRARY ORDERABLES ILIANA [place], [place] documented in this encounter Visit Diagnoses Not on filedocumented in this encounter Care Teams Campus Supervisor Relationship Specialty Start Date End Date Dina Diaz PA [address] [place] [address] [place] [address] PCP - General Internal Medicine 05/26/20 documented as of this encounter
--- OUTSIDE RECORDS SUMMARY | 2023-10-04 01:07 | XMS_ITS | Encounter Summary ---
Author Organization [facility] [place] [address] Care Team Providers Care Shower Screen Installer Name Role Phone Unavailable Primary Care Provider Unavailabl e Encounter Details Date Type Department Care Team (Late st Contact Info) Description 07/16/2015 [facility] Information Services [address] [place] [address] [place] [phone] Provider, His [place] MD Social History Tobacco Use Types Packs/Day Years [...] Taken Comments Blood Pressure - - Pulse 92 07/16/2015 8:40 AM EDT Sourced from [facility] Temperature - - Respiratory Rate - - Oxygen Saturation - - Inhaled Oxygen Concentration - - Weight 78 kg (172 lb) 07/16/2015 8:40 AM EDT Sourced from [facility] Height - - Body Mass Index 28.4 07/14/2015 9:30 AM EDT documented in this encounter Plan of Treatment Not on file documented as of this encounter Procedures Procedure Name Priority Date/Time Associated Diagnosis Comments CMP ([facility] CONVERSION) Routine 07/16/2015 9:44 AM EDT CBC (WITH DIFF) Routine 07/16/2015 9:44 AM EDT TSH Routine 07/16/2015 9:44 AM EDT documented in this encounter Results * (ABNORMAL) CMP ([facility] conversion) (07/16/2015 9:44 AM EDT) Est Glomerular Filtration Rate >60(Exte rnal Lab) ml/min/1.73m2 [facility] RESULT CONVERSION Comment: Sourced from [facility] [place] Conversion Albumin 4.6(Exte rnal Lab) 3.5 - 5.2 g/dl [facility] RESULT CONVERSION Comment: Sourced from [facility] [place] Conversion Alkaline Phosphatase 66(Exter nal Lab) 35 - 104 international units per liter [facility] RESULT CONVERSION Comment: Sourced from [facility] [place] Conversion Alanine Aminotransferase 19(Exter nal Lab) <33 international units per liter [facility] RESULT CONVERSION Comment: Sourced from [facility] [place] Conversion Aspartate Aminotransferase 16(Exter nal Lab) <32 international units per liter [facility] RESULT CONVERSION Comment: Sourced from [facility] [place] Conversion Blood Urea Nitrogen 15(Exter nal Lab) 6 - 20 mg/dl [facility] RESULT CONVERSION Comment: Sourced from [facility] [place] Conversion Calcium 10.1(Ext ernal Lab) 8.6 - 10.2 mg/dl [facility] RESULT CONVERSION Comment: Sourced from [facility] [place] Conversion CKD Stage NL, 1or2(Ext ernal Lab) [facility] RESULT CONVERSION Comment: Sourced from [facility] [place] Conversion Chloride 97(EXTER NAL/ABN) 98 - 107 mmol/L [facility] RESULT CONVERSION Comment: Sourced from [facility] [place] Conversion Carbon Dioxide 26(Exter nal Lab) 21 - 32 mmol/L [facility] RESULT CONVERSION Comment: Sourced from [facility] [place] Conversion Creatinine 0.7(Exte rnal Lab) 0.7 - 1.2 mg/dl [facility] RESULT CONVERSION Comment: Sourced from [facility] [place] Conversion Anion Gap 15(Exter nal Lab) 8 - 16 mmol/L [facility] RESULT CONVERSION Comment: Sourced from [facility] [place] Conversion Glucose Fasting 102(EXTE RNAL/ABN ) 70 - 100 mg/dl [facility] RESULT CONVERSION Comment: Sourced from Angela [place] Conversion Potassium 4.9(Exte rnal Lab) 3.3 - 5.1 mmol/L [facility] RESULT CONVERSION Comment: Sourced from [facility] [place] Conversion Sodium 138(Exte rnal Lab) 136 - 145 mmol/L [facility] RESULT CONVERSION Comment: Sourced from [facility] [place] Conversion Bilirubin, Total 0.3(Exte rnal Lab) <1.2 mg/dl [facility] RESULT CONVERSION Comment: Sourced from Angela [place] Conversion Protein, Total 7.3(Exte rnal Lab) 6.6 - 8.7 g/dl [facility] RESULT CONVERSION Comment: Sourced from Angela [place] Conversion 07/16/2015 9:44 AM EDT His [place] Provider CHEMISTRY ORDERABL ES [facility] RESULT CONVERSION * (ABNORMAL) CBC (with Diff) (07/16/2015 9:44 AM EDT) Baso Absolute 0.04(Exte rnal Lab) 0.0 - 0.2 THOUS [facility] RESULT CONVERSION Comment: Sourced from Angela [place] Conversion Basophil % 0.6(Exter nal Lab) 0.0 - 2.0 percent [facility] RESULT CONVERSION Comment: Sourced from Angela [place] Conversion Eosinophils Abs 0.20(Exte rnal Lab) 0.0 - 0.8 THOUS [facility] RESULT CONVERSION Comment: Sourced from [facility] [place] Conversion Eos % 2.8(Exter nal Lab) 0.0 - 7.0 percent [facility] RESULT CONVERSION Comment: Sourced from Angela [facility] Conversion Immature Gran Absolute 0.02(Exte rnal Lab) 0.0 - 0.05 THOUS [facility] RESULT CONVERSION Comment: Sourced from [facility] [place] Conversion Immature Gran % 0.3(Exter nal Lab) 0.0 - 0.66 %/100 WBC [facility] RESULT CONVERSION Comment: Sourced from Angela [place] Conversion Hematocrit 41.1(Exte rnal Lab) 37.0 - 47.0 percent [facility] RESULT CONVERSION Comment: Sourced from [facility] [place] Conversion Hemoglobin 13.2(Exte rnal Lab) 12.0 - 16.0 g/dl [facility] RESULT CONVERSION Comment: Sourced from [facility] [place] Conversion White Blood Cell 7.22(Exte rnal Lab) 4.8 - 10.8 THOUS [facility] RESULT CONVERSION Comment: Sourced from [facility] [place] Conversion Lymphocytes Abs 2.59(Exte rnal Lab) 0.90 - 5.20 THOUS [facility] RESULT CONVERSION Comment: Sourced from Angela [place] Conversion Lymph % 35.9(Exte rnal Lab) 19.0 - 48.0 percent [facility] RESULT CONVERSION Comment: Sourced from Angela [place] Conversion Mean Cell Hemoglobin 28.4(Exte rnal Lab) 27 - 31 pg [facility] RESULT CONVERSION Comment: Sourced from [facility] [place] Conversion Mean Cell Hemoglobin Concentration 32.1(EXTE RNAL/ABN) 33 - 37 g/dl [facility] RESULT CONVERSION Comment: Sourced from Angela [place] Conversion Mean Cell Volume 88.4(Exte rnal Lab) 81 - 99 FL [facility] RESULT CONVERSION Comment: Sourced from [facility] [place] Conversion Monocyte Abs 0.54(Exte rnal Lab) 0.16 - 1.00 THOUS [facility] RESULT CONVERSION Comment: Sourced from [facility] [place] Conversion Monocyte % 7.5(Exter nal Lab) 3.4 - 9.0 percent [facility] RESULT CONVERSION Comment: Sourced from [facility] [place] Conversion Mean Platelet Volume 8.3(Exter nal Lab) 7.2 - 11.1 FL [facility] RESULT CONVERSION Comment: Sourced from Angela [place] Conversion ANC 3.83(Exte rnal Lab) 1.90 - 8.00 THOUS [facility] RESULT CONVERSION Comment: Sourced from [facility] [place] Conversion Neutrophil % 52.9(Exte rnal Lab) 40.0 - 74.0 percent [facility] RESULT CONVERSION Comment: Sourced from [facility] [place] Conversion NRBC Absolute 0.00(Exte rnal Lab) 0.0 - 0.012 THOUS [facility] RESULT CONVERSION Comment: Sourced from [facility] [place] Conversion NRBC% auto 0.0(Exter nal Lab) 0.0 - 0.2 %/100 WBC [facility] RESULT CONVERSION Comment: Sourced from [facility] [place] Conversion Platelet 359(Exter nal Lab) 130 - 400 THOUS [facility] RESULT CONVERSION Comment: Sourced from [facility] [place] Conversion Red Blood Cell 4.65(Exte rnal Lab) 4.2 - 5.4 MILLIONS [facility] RESULT CONVERSION Comment: Sourced from [facility] [place] Conversion RDW coefficient of variation 14.3(Exte rnal Lab) 11.5 - 14.5 percent [facility] RESULT CONVERSION Comment: Sourced from [facility] [place] Conversion 07/16/2015 9:44 AM EDT His [place] Provider HEMATOLOGY ORDERAB LES [facility] RESULT CONVERSION * (ABNORMAL) TSH (07/16/2015 9:44 AM EDT) Thyroid Stimulating Hormone 0.93(Exte rnal Lab) 0.27 - 4.2 uIU/mL [facility] RESULT CONVERSION Comment: Sourced from [facility] [place] Conversion 07/16/2015 9:44 AM EDT His [place] Provider CHEMISTRY ORDERABL ES [facility] RESULT CONVERSION documented in this encounter Visit Diagnoses Not on filedocumented in this encounter
--- OUTSIDE RECORDS SUMMARY | 2023-10-04 01:07 | XMS_ITS | Encounter Summary ---
[place] [address] Care Team Providers Care Second Baller Name Role Phone Unavailable Primary Care Provider Unavailabl e Encounter Details Date Type Department Care Team (Late st Contact Info) Description 10/30/2015 3:00 PM EDT Clinical Support [place]stetrics [place] [phone] Dysuria Social History Tobacco Use Types Packs/Day Years [...] as of this encounter Progress Notes * Eusebio León LPN - 10/30/2015 3:00 PM EDT Patient presents today with symptoms of urgency, frequency and leakage post surgery. Requests UA and bladder scan. Sent UA per Cris Moeller RN. Bladder scan results WNL. Patient requests Cris contact here by phone to discuss options. documented in this encounter Plan of Treatment Scheduled Orders Name Type Priority Associated Diagnoses Orde r Schedule Bladder Scanner PROCEDURE Routine Dysuria Ordered: 10/30/2015 documented as of this encounter Procedures Procedure Name Priority Date/Time Associated Diagnosis Comments URINALYSIS WITH REFLEX CULTURE Routine 10/30/2015 3:21 PM EDT Dysuria URINE CULTURE Routine 10/30/2015 3:21 PM EDT POCT URINE DIPSTICK Routine 10/30/2015 Dysuria documented in this encounter Results * (ABNORMAL) Urine culture (10/30/2015 3:21 PM EDT) Urine Culture 10,000-49,000 cfu/ml mixed mucosal rupesh Note: Culture shows multiple bacterial species suggesting mucosal contamination. If symptoms continue to indicate urinary tract infection, submit a new specimen. (A) [facility] Urine specimen (specimen) 10/30/2015 3:21 PM EDT 10/30/2015 4:38 PM EDT Narrative Resulting Agency Comment Spec In Lab Debra Apple MD MICROBIOLOGY - [facility] ORDERABLES [facility] [place] [phone] * (ABNORMAL) Urinalysis with reflex Culture (10/30/2015 3:21 PM EDT) Glucose, Urine Dipstick Negative Negative mg/dL [facility] Protein, Urine Dipstick Negative Negative mg/dL [facility] Bilirubin, Urine Dipstick Negative Negative mg/dL [facility] Comment: Clinical correlation required for positive Urine Bilirubin results as false positive may occur with some drugs and drug related products. If a false positive is suspected a serum total bilirubin should be considered if clinically indicated. Urobilinogen, Urine Dipstick Normal Normal mg/dL [facility] pH, Urn (dipstick) 6.0 5.0 - 8.0 [facility] Blood, Urine Dipstick Negative Negative mg/dL [facility] Ketone, Urine Dipstick 5(A) Negative mg/dL [facility] Nitrite, Urine Dipstick Negative Negative [facility] Leukocytes, Urine Dipstick Small(A) Negative [facility] Appearance, Urine Dipstick Clear Clear [facility] Specific [place] Urine Automated 1.015 1.002 - 1.030 [facility] Color, Urine Dipstick Yellow Yellow [facility] RBC, Urine <1 0 - 4 /HPF [facility] WBC, Urine 6(H) 0 - 5 /HPF [facility] Squamous Epithelial Cells, Urine 1 <=4 /HPF [facility] Reflex to Culture Yes [facility] Urine specimen (specimen) 10/30/2015 3:21 PM EDT 10/30/2015 4:21 PM EDT Narrative Resulting Agency Comment Spec In Lab Debra Apple MD URINE ORDERABLES Performing Organization Address City/State/[facility] Co de Phone Number [facility] [place] [address] * POCT urine dipstick (10/30/2015) POC Sp [place] 1.02 1.002 - 1.030 POC pH, UA 5 5.0 - 8.5 POC Leuk, UA trace Negative - Negative POC Nitrite, UA N Negative - Negative POC Protein, UA N Negative - Negative mg/dL POC Glucose, UA N Normal - Normal mg/dL POC Ketone, UA N Negative - Negative POC Urobil, UA N 0.2 - 1.0 mg/dL POC Bili, UA N Negative - Negative POC Blood, UA N Negative - Negative oscar/uL Debra Apple MD POINT OF CARE TEST ORDERABLES documented in this encounter Visit Diagnoses Diagnosis Dysuria documented in this encounter
--- OUTSIDE RECORDS SUMMARY | 2023-10-04 01:07 | XMS_ITS | Encounter Summary ---
Author Organization [facility] [place] [place] [address] Care Team Providers Care Dragger Out Name Role Phone Dina Diaz Primary Care Provider + Encounter Details Date Type Department Care Team (Late st Contact Info) Description 01/04/2021 Telephone Hematology and Oncology at [place] [phone] Yudith Joy Social History Tobacco Use Types Packs/Day Years [...] encounter Miscellaneous Notes * Telephone Encounter - Yudith Joy - 01/04/2021 10:55 AM EST Emilee Malik Wilhelm 1970 [id number] Referring provider: Dina Diaz PA Date of Referral: 01.04.2021 Please review outside breast imaging dated: 01.01.2021 Reason for exam and clinical history: Left breast calcs, UOQ Category: 4 Questions to be answered: ? More imaging, ? BX Sending Institution: [facility] Patient [place] [facility] Call pt at: Home Phone Not on file. documented in this encounter Plan of Treatment Not on file documented as of this encounter Visit Diagnoses Not on filedocumented in this encounter Care Teams Dragger Out Relationship Specialty Start Date End Date Dina Diaz PA [address] [place] [address] [place] [address] PCP - General Internal Medicine 05/26/20 documented as of this encounter
--- OUTSIDE RECORDS SUMMARY | 2023-10-04 01:07 | XMS_ITS | Encounter Summary ---
Author Organization [facility] Address [facility] [place] [address] Care Team Providers Care Payroll Manager Name Role Phone Unavailable Primary Care Provider Unavailabl e Reason for Visit * Auth/Cert Specialty Diagnoses / Procedures Referred By Contac t Referred To Contact Diagnoses Stress incontinence (female) (male) Stress urinary incontinence Procedures PRO SLING OPER STRES INCONTINENCE URETHRAL SUSPENSION, SLING\FASCIA OR SYNTHETIC Referral ID Status Reason Start Date Expiration Date Visits Re quested Visits Authorized [id number] 1 1 Encounter Details Date Type Department Care Team (Latest Contact Info) Description 10/13/2015 6:12 AM EDT - 10/13/2015 10:54 AM EDT Hospital Encounter [place] [address] Ariella Griffith MD [facility] [place] [address] Stress incontinence, female Discharge Disposition: Home Social [...] Sign Reading Time Taken Comments Blood Pressure 101/60 10/13/2015 10:16 AM EDT Pulse 78 10/13/2015 10:16 AM EDT Temperature 36 ??C (96.8 ??F) 10/13/2015 9:01 AM EDT Respiratory Rate 18 10/13/2015 10:1 6 AM EDT Oxygen Saturation 98% 10/13/2015 10: 16 AM EDT Inhaled Oxygen Concentration - - Weight 76.2 kg (167 lb 15.9 oz) 10/13/2015 6:43 AM EDT Height 165.1 cm (5' 5) 10/13/2015 6:43 AM EDT Body Mass Index 27.96 10/13/2015 6:43 AM EDT documented in this encounter Discharge Instructions * Discharge Instructions* Ryan Lane RN - 10/13/2015 9:30 AM EDT POST ANESTHESIA INSTRUCTIONS Go home, rest, use caution on stairs. Change positions slowly. Do not smoke if you are alone. Diet light to regular as tolerated today. If nausea occurs start with clear liquids and progress slowly. No driving, operating machinery, alcoholic beverages and no important decisions for 24 hours. Monitor IV site for signs and symptoms of infection: increasing redness, swelling, foul drainage, if occurs contact M.D. Patients who have had endotrachial tubes (this tube, used by anesthesia department, is passed down your throat after you are asleep, to ensure safe air passage during your operation). A sore throat is normal due to the tube. Cold liquids or soothing lozenges will help ease the discomfort. The generalized muscle aches are due to the medication given to you just before the tube is inserted. As the medication wears off, you may develop muscle soreness, which usually goes away in 12-24 hours. * Patient Instructions* Dina Cason MD - 10/13/2015 6:58 AM EDT Post Op Check with Rosa Allan on 11/23/15 at 4:30PM Please take 600mg ibuprofen q6H for pain and then take Dilaudid for pain that breaks through Patient Discharge Instructions: Special Physician Instructions: If you are still needing a catheter to drain your bladder, please follow the instructions given to you separately for when to use the catheter and how to care for it. In addition, please call to check in with the urogynecology office nurse at [phone] to review how your bladder is working and when the catheter use can be discontinued. For problems or concerns related to this hospitalization call: [phone] weekdays, or [phone] weekends or nights. Call your doctor if you develop: --A [...] avoid more vigorous exercise for at least 2weeks. No lifting, pushing or pulling greater than 5-10 pounds for 4 weeks. No sexual intercourse and place nothing [...] Do not soak in a tub for two weeks following surgery, this may cause your stitches to dissolve too early. Wound Care: Most women will experience some vaginal bleeding and discharge after surgery. You will want to havesome menstrual pads at home. CC: EVA KRUSE DO documented in this encounter Medications at Time of Discharge Medication Sig Dispensed Refills Start Date End Date EPINEPHrine (EPIPEN) 0.3 mg/0.3 mL (1:1,000) Auto-InjectorIndications :Allergic rhinitis, unspecified allergic rhinitis type Inject 0.3 mLs into the muscle once as needed. 1 each 1 01/08/2015 HYDROmorphone (DILAUDID) 2 mg Tablet Take 1 tablet by mouth every 3 hours as needed for Pain. 10 tablet 10/13/2015 07/14/2020 lurasidone 20 mg Tablet Take 1 tablet by mouth daily. 30 tablet 1 10/12/2015 10/28/2015 loratadine (CLARITIN) 10 mg Tablet Take 10 mg by mouth daily. 07/14/2020 cholecalciferol, Vitamin D3, 1,000 unit Capsule Take 5,000 Units by mouth. 06/29/2021 Biotin 5 mg Capsule Take 1 capsule by mouth. 07/14/2020 multivitamin (THERAGRAN) Tablet Take 1 tablet by mouth daily. 07/14/2020 hydrOXYzine (ATARAX) 25 mg Tablet Take 1 tablet by mouth nightly. 90 tablet 2 10/02/2015 10/20/2015 fluticasone (FLONASE) 50 mcg/actuation [place], Suspension 1 spray by Each Nare route 2 times daily. 11/23/2021 fexofenadine (PAULIE) 180 mg Tablet Take 180 mg by mouth daily. 07/14/2020 diphenhydrAMINE (BENADRYL) 25 mg capsule Take 25-50 mg by mouth as needed. 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 (X) Condition unchanged since H&P originally performed. Interval Note: Patient reports she is doing well. Nothing has changed since she last saw Rosa Allan. She reports that she tolerates Dilaudid, but doesn't tolerate other narcotics. Discussed that she might not need narcotics with this procedure. S/p BTL for contraception. A copy of this document will be sent to the patient's Primary Care Physician and/or Referring Physician. DINA CASON MD PGY4 10/13/2015 I met with Ms. Bernal on 07/20/15 and again today. She denies interval health changes and desires to proceed with a sling. She has stress urinary incontinence, confirmed on urodynamic testing. After reviewing options, she desires to proceed with a sling. She signed a consent form on the day of her uro dynamic testing, 07/20/15. ARIELLA GRIFFITH MD documented in this encounter Miscellaneous Notes * Op Note - Ariella Griffith MD - 10/13/2015 9:11 AM EDT [facility] [place] Patient Name: Emilee Bernal : [id number] MR#: [id number] Case Date: 10/13/2015 Surgeon: Surgeon(s) and Role: * Ariella Griffith MD - Primary * Dina Cason MD Preoperative diagnosis: Mixedurinary incontinence Postoperative diagnosis: Mixed urinary incontinence Procedure(s): URETHRAL SUSPENSION, SLING\FASCIA OR SYNTHETIC (trans-obturator mid-urethral sling (Desara Blue)) Anesthesia: General laryngeal mask ?? Findings: Mild anterior vaginal wall descent. Uterus mobile, anteflexed, small. No adnexal masses. At cystoscopy, normal bladder, urethral mucosa. Ureters in normal location bilaterally. ? Complications: none ? Fluids In: 1200 mL crystalloid ?? Fluids Out: 150 mL urine ?? Estimated Blood Loss: 100 mL ?? Drains: Sanchez to gravity bag drainage; vaginal packing in place Specimens removed during surgery: None Surgical Closure: Primary Closure - closure of ALL tissue levels during the original surgery regardless of wires, wickes, drains, or other devices extruding through the incision Disposition: awakened from anesthesia, extubated and taken to the recovery room in a stable condition, having suffered no apparent untoward event. Condition: doing well without problems (Please see the Surgical Encounter Summary for any Implant and Specimen details pertinent to this patient.) HPI/Surgical Indications: Ms. Bernal is a 45 year old woman with symptomatic urinary incontinence. Her bladder diary was not helpful but urodynamic testing confirmed stress urinary incontinence with leak point pressures of 157 - 186 cm H20. She also has tried medications for treatment of urge incontinence, including mirabegron, oxybutynin. Procedure Description: Patient was positioned in the dorsal lithotomy position in adjustable Yellowfin stirrups in what was felt to be a neurologically safe positioning. She had knee-high intermittent pneumatic compression stockings in place throughout the procedure. She received 2 gram of cefazolin IV prior to incision. Exam under anesthesia was performed. She was prepped and draped in the usual sterile fashion. A time out protocol was adhered to, confirming the patient's identity, planned procedure and safety measures. A site just lateral to the ischiopubic ramus at junction between the adductor longus and gracilis muscles was identified and injected with 5 mL of 0.25% bupivacaine. This was repeated on the oppositeside. Stab wound incisions were made in the skin at both sites. The mid-urethra was identified withaid of a urethral catheter. The mid-urethral vaginal wall was infiltrated with 1% lidocaine with epinephrine, extending out to the sulci bilaterally. A 2 cm vertical incision was in the suburethral vagina and a full thickness dissection performed in the paraurethral space out to the inferior pubic rami bilaterally. A helical Mike needle was used to zuniga the obturator foramen via the lateral skin incision. The needle was aligned with the handle pointing to the ipsilateral ischial tuberosity. This was performed bilaterally. The Desara polypropylene sling was attached to the needle and retrieved. This was performed bilaterally. Cystoscopy was performed with a 70-degree cystoscope with reassuring findings. The mesh was tensioned with a right angle clamp holding a knuckle of mesh measuring ~10 mm at the suburethral portion. With traction on both arms, the knuckle was snugged up to the mid-urethra. The mesh was deployed by removing the protective plastic coating bilaterally. There was bleeding at the left side, which improved with some electrocautery and pressure for 5 minutes. The vaginal wall was reapproximated with 2-0 Vicryl in a running fashion. Because of some persistent oozing, a Xeroform vaginal packing was place. The obturator skin incisions were reapproximated with DermaBond glue. Sponge and needle counts were correct at the conclusion of the procedure. Infection Bundle used? N/A Attestation: Case Date: 10/13/2015 I was present and I participated during the entire procedure (does not need to include opening and closing). ARIELLA GRIFFITH MD 10/13/2015 * Brief Op Note - Ariella Griffith MD - 10/13/2015 8:49 AM EDT Brief Operative Note Patient Name: Emilee Bernal : [id number] MR#: [id number] Case Date: 10/13/2015 Surgeon: Surgeon(s) and Role: * Ariella Griffith MD - Primary * Dina Cason MD Preoperative diagnosis: Stress urinary incontinence Postoperative diagnosis: Stress urinary incontinence Procedure(s): URETHRAL SUSPENSION, SLING\FASCIA OR SYNTHETIC (trans-obturator mid-urethral sling (Desara Blue) Anesthesia: General laryngeal mask Findings: Mild anterior vaginal wall descent. Uterus mobile, anteflexed, small. No adnexal masses. At cystoscopy, normal bladder, urethral mucosa. Ureters in normal location bilaterally. Complications: none Fluids In: 1200 mL crystalloid Fluids Out: 150 mL urine Estimated Blood Loss: 100 mL Drains: Sanchez to gravity bag drainage; vaginal packing in place Disposition: awakened from anesthesia, extubated and taken to the recovery room in a stable condition, having suffered no apparent untoward event. Condition: doing well without problems Infection Bundle used? N/A Attestation: Case Date: 10/13/2015 I was present and I participated during the entire procedure (does not need to include opening and closing). (Please see the Surgical Encounter Summary for any Implant and Specimen details pertinent to this patient.) documented in this encounter Plan of Treatment Not on file documented as of this encounter Procedures Procedure Name Priority Date/Time Associated Diagnosis Comments URETHRAL SUSPENSION, SLING\FASCIA OR SYNTHETIC (WRVU 12.13) 10/13/2015 7:34 AM EDT Urine, incontinence, stress female documented in this encounter Visit Diagnoses Diagnosis Stress incontinence, female- Primary Female stress incontinence Stress incontinence, female Female stress incontinence documented in this encounter Administered Medications Inactive Administered Medications - up to 3 most recent administrations Medication Order MAR Action Action Date Dose Rate Site fentaNYL (PF) 50 mcg/mL 2mL syringe 25 mcg, Intravenous, EVERY 5 MIN PRN, Pain, for 1-4 pain score, Starting on Mon10/13/15 at 0914, Until Mon10/13/15 at 1254, for 1-4 pain score Hold for respiratory rate less than 10 per minute. Maximum dose: 250 mcg over one hour., PACU Recovery fentaNYL (PF) 50 mcg/mL 2mL syringe 50 mcg, Intravenous, EVERY 5 MIN PRN, Pain, for 5-10 pain score, Starting on Mon10/13/15 at 0914, Until Mon10/13/15 at 1254, for 5-10 pain score Hold for respiratory rate less than 10 per minute. Maximum dose: 250 mcg over one hour., PACU Recovery fentaNYL (PF) 50 mcg/mL 2mL syringe 25 mcg, Intravenous, EVERY 5 MIN PRN, Pain, for 1-4 pain score, Starting on Mon10/13/15 at 0914, Until Mon10/13/15 at 1254, for 1-4 pain score Hold for respiratory rate less than 10 per minute. Maximum dose: 250 mcg over one hour., PACU Recovery fentaNYL (PF) 50 mcg/mL 2mL syringe 50 mcg, Intravenous, EVERY 5 MIN PRN, Pain, for 5-10 pain score, Starting on Mon10/13/15 at 0914, Until Mon10/13/15 at 1254, for 5-10 pain score Hold for respiratory rate less than 10 per minute. Maximum dose: 250 mcg over one hour., PACU Recovery HYDROmorphone (DILAUDID) syringe 0.2-0.4 mg 0.2-0.4 mg, Intravenous, EVERY 5 MIN PRN, Pain, Starting on Mon10/13/15 at 0914, Until Mon10/13/15 at 1254, For moderate pain (4-6) give: 0.2 mg every 5 minute prn For severe pain (7-10) give: 0.4 mg every 5 minutes prn Maximum dose: 4 mg per hour Hold for respiratory rate less than 10 per minute., PACU Recovery HYDROmorphone (DILAUDID) tablet 2 mg 2 mg, Oral, EVERY 3 HOURS PRN, Starting on Mon10/13/15 at 0854, Until Mon10/13/15 at 1254, Pain, Routine Given 10/13/2015 9:28 AM EDT 2 mg lactated ringers infusion 1,000 mL 1,000 mL, at 100 mL/hr, Intravenous, CONTINUOUS, Starting on Mon10/13/15 at 0730, Until Mon10/13/15 at 1254, Day of Surgery (Day of Procedure) New Bag 10/13/2015 7:35 AM EDT New Bag 10/13/2015 7:05 AM EDT 1,000 mLs 100 mL/hr lidocaine (XYLOCAINE) 10 mg/mL (1 %) injection 3 mg 3 mg (0.3 mL), Subcutaneous, ONCE PRN, 1 dose, Starting on Mon10/13/15 at 0704, Until Mon10/13/15 at 0705, for discomfort with PIV insertion, Day of Surgery (Day of Procedure), Routine Given 10/13/2015 7:05 AM EDT 3 mg nalOXone (NARCAN) injection 40 mcg 40 mcg, Intravenous, EVERY 5 MIN PRN, Starting on Mon10/13/15 at 0914, Until Mon10/13/15 at 1254, Opioid Reversal, for respiratory rate less than 6 or unresponsive., May repeat every every 5 minutes to increase respiratory rate. DO NOT exceed 120 mcg total dose. Notify anesthesia immediately if administered., PACU Recovery, Routine ondansetron (ZOFRAN) injection 4 mg 4 mg, Intravenous, EVERY 30 MIN PRN, Starting on Mon10/13/15 at 0914, Until Mon10/13/15 at 1254, Nausea, May repeat 4 mg once in 30 minutes. If multiple antiemetics ordered, use ondansetron first and if ineffective use prochlorperazine second and if ineffective use promethazine, PACU Recovery prochlorperazine (COMPAZINE) injection 5 mg 5 mg, Intravenous, EVERY 30 MIN PRN, 2 doses, Starting on Mon10/13/15 at 0914, Until Mon10/13/15 at 1254, Nausea, May repeat 5 mg once in 30 minutes. If multiple antiemetics ordered, use ondansetron first and if ineffective use prochlorperazine second and if ineffective use promethazine, PACU Recovery, Routine promethazine (PHENERGAN) injection 12.5 mg 12.5 mg, Intravenous, EVERY 30 MIN PRN, Nausea, Starting on Mon10/13/15 at 0914, 2 doses, Until Mon10/13/15 at 1254, If multiple antiemetics ordered, use ondansetron first and if ineffective use prochlorperazine second and if ineffective use promethazine, PACU Recovery sodium chloride 0.9 % flush 5 mL 5 mL, Intravenous, EVERY 12 HOURS, First dose on Mon10/13/15 at 0945, Until Discontinued, PACU Recovery, Routine sodium chloride 0.9 % flush 5-20 mL 5-20 mL, Intravenous, EVERY 1 MIN PRN, Starting on Mon10/13/15 at 0704, Until Mon10/13/15 at 1254, flush, Flush pertains to all indwelling lines. Flush per protocol found in the job aid using the link provided on this medication record., Day of Surgery (Day of Procedure), Routine documented in this encounter Active and Recently Administered Medications Times are shown in EDT. Scheduled Medication Order 10/11/2015 10/12/2015 10/13/2015 ceFAZolin (ANCEF) 2g in dextrose 5% 50 mL (COMPLETED) 2 g, Intravenous, ONCE, 1 dose, On Mon10/13/15 at 0730, Administer over 30 Minutes, Redose every 3 hours if CrCl is greater than 20. Redose every 8 hours if CrCl is less than 20., Day of Surgery (Day of Procedure), Indication for (Active or Suspected): Prophylaxis 0753 (Given - Provid er: Liliya Britt CRNA) sodium chloride 0.9 % flush 5 mL 5 mL, Intravenous, EVERY 12 HOURS, First dose on Mon10/13/15 at 0945, Until Discontinued, PACU Recovery, Routine 0945 (Due) sodium chloride 0.9 % flush 5 mL 5 mL, Intravenous, 2 TIMES DAILY, First dose on Mon10/13/15 at 0915, Until Discontinued, Routine 0915 (Due) Continuous Medication Order 10/11/2015 10/12/2015 10/13/2015 lactated ringers infusion 1,000 mL 1,000 mL, at 100 mL/hr, Intravenous, CONTINUOUS, Starting on Mon10/13/15 at 0730, Until Mon10/13/15 at 1254, Day of Surgery (Day of Procedure) 0705 (New Bag - Prov ider: Regulo oDnis RN)0735 (New Bag - Provider: Liliya Britt CRNA)0828 (Anesthesia Volume Adjustment - Provider: Liliya Britt CRNA)0845 (Anesthesia Volume Adjustment - Provider: Liliya Britt CRNA) lactated ringers infusion 1,000 mL 1,000 mL, at 100 mL/hr, Intravenous, CONTINUOUS, Starting on Mon10/13/15 at 0945, Until Mon10/13/15 at 1254, PACU Recovery 0945 (Due) PRN Medication Order 10/11/2015 10/12/2015 10/13/2015 acetaminophen (TYLENOL) tablet 650 mg 650 mg, Oral, EVERY 6 HOURS PRN, Starting on Mon10/13/15 at 0853, Until Mon10/13/15 at 1254, Pain, Use acetaminophen first, Routine BUpivacaine (PF) (MARCAINE) 0.25 % (2.5 mg/mL) injection (CANCELED) ONCE PRN, Starting on Mon10/13/15 at 0817, Until Mon10/13/15 at 1254, Intra-Operative (Intra-Procedure), Routine 0817 (Given - Provid er: Ariella Griffith MD) fentaNYL (PF) 50 mcg/mL 2mL syringe(Linked Group 1) 25 mcg, Intravenous, EVERY 5 MIN PRN, Pain, for 1-4 pain score, Starting on Mon10/13/15 at 0914, Until Mon10/13/15 at 1254, for 1-4 pain score Hold for respiratory rate less than 10 per minute. Maximum dose: 250 mcg over one hour., PACU Recovery fentaNYL (PF) 50 mcg/mL 2mL syringe(Linked Group 1) 50 mcg, Intravenous, EVERY 5 MIN PRN, Pain, for 5-10 pain score, Starting on Mon10/13/15 at 0914, Until Mon10/13/15 at 1254, for 5-10 pain score Hold for respiratory rate less than 10 per minute. Maximum dose: 250 mcg over one hour., PACU Recovery fentaNYL (PF) 50 mcg/mL 2mL syringe(Linked Group 2) 25 mcg, Intravenous, EVERY 5 MIN PRN, Pain, for 1-4 pain score, Starting on Mon10/13/15 at 0914, Until Mon10/13/15 at 1254, for 1-4 pain score Hold for respiratory rate less than 10 per minute. Maximum dose: 250 mcg over one hour., PACU Recovery fentaNYL (PF) 50 mcg/mL 2mL syringe(Linked Group 2) 50 mcg, Intravenous, EVERY 5 MIN PRN, Pain, for 5-10 pain score, Starting on Mon10/13/15 at 0914, Until Mon10/13/15 at 1254, for 5-10 pain score Hold for respiratory rate less than 10 per minute. Maximum dose: 250 mcg over one hour., PACU Recovery HYDROmorphone (DILAUDID) syringe 0.2-0.4 mg 0.2-0.4 mg, Intravenous, EVERY 5 MIN PRN, Pain, Starting on Mon10/13/15 at 0914, Until Mon10/13/15 at 1254, For moderate pain (4-6) give: 0.2 mg every 5 minute prn For severe pain (7-10) give: 0.4 mg every 5 minutes prn Maximum dose: 4 mg per hour Hold for respiratory rate less than 10 per minute., PACU Recovery HYDROmorphone (DILAUDID) tablet 2 mg 2 mg, Oral, EVERY 3 HOURS PRN, Starting on Mon10/13/15 at 0854, Until Mon10/13/15 at 1254, Pain, Routine 927 (Given - Provid er: Ryan Lane RN) lidocaine (XYLOCAINE) 10 mg/mL (1 %) injection 3 mg (COMPLETED) 3 mg (0.3 mL), Subcutaneous, ONCE PRN, 1 dose, Starting on Mon10/13/15 at 0704, Until Mon10/13/15 at 0705, for discomfort with PIV insertion, Day of Surgery (Day of Procedure), Routine 704 (Given - Provid er: Regulo Donis RN) lidocaine (XYLOCAINE) 10 mg/mL (1 %) injection 3 mg 3 mg (0.3 mL), Subcutaneous, ONCE PRN, 1 dose, Starting on Mon10/13/15 at 0852, Until Mon10/13/15 at 1254, for discomfort with PIV insertion, Routine lidocaine-EPINEPHrine 1 %-1:200,000 injection (CANCELED) ONCE PRN, Starting on Mon10/13/15 at 0818, Until Mon10/13/15 at 1254, Intra-Operative (Intra-Procedure), Routine 0818 (Given - Provid er: Ariella Griffith MD) nalOXone (NARCAN) injection 40 mcg 40 mcg, Intravenous, EVERY 5 MIN PRN, Starting on Mon10/13/15 at 0914, Until Mon10/13/15 at 1254, Opioid Reversal, for respiratory rate less than 6 or unresponsive., May repeat every every 5 minutes to increase respiratory rate. DO NOT exceed 120 mcg total dose. Notify anesthesia immediately if administered., PACU Recovery, Routine ondansetron (ZOFRAN) injection 4 mg 4 mg, Intravenous, EVERY 30 MIN PRN, Starting on Mon10/13/15 at 0914, Until Mon10/13/15 at 1254, Nausea, May repeat 4 mg once in 30 minutes. If multiple antiemetics ordered, use ondansetron first and if ineffective use prochlorperazine second and if ineffective use promethazine, PACU Recovery ondansetron (ZOFRAN) injection 4 mg 4 mg, Intravenous, EVERY 30 MIN PRN, Starting on Mon10/13/15 at 0914, Until Mon10/13/15 at 1254, Nausea, May repeat 4 mg once in 30 minutes. If multiple antiemetics ordered, use ondansetron first and if ineffective use prochlorperazine second and if ineffective use promethazine, PACU Recovery prochlorperazine (COMPAZINE) injection 5 mg 5 mg, Intravenous, EVERY 30 MIN PRN, 2 doses, Starting on Mon10/13/15 at 0914, Until Mon10/13/15 at 1254, Nausea, May repeat 5 mg once in 30 minutes. If multiple antiemetics ordered, use ondansetron first and if ineffective use prochlorperazine second and if ineffective use promethazine, PACU Recovery, Routine promethazine (PHENERGAN) injection 12.5 mg 12.5 mg, Intravenous, EVERY 30 MIN PRN, Nausea, Starting on Mon10/13/15 at 0914, 2 doses, Until Mon10/13/15 at 1254, If multiple antiemetics ordered, use ondansetron first and if ineffective use prochlorperazine second and if ineffective use promethazine, PACU Recovery sodium chloride 0.9 % flush 5-20 mL 5-20 mL, Intravenous, EVERY 1 MIN PRN, Starting on Mon10/13/15 at 0704, Until Mon10/13/15 at 1254, flush, Flush pertains to all indwelling lines. Flush per protocol found in the job aid using the link provided on this medication record., Day of Surgery (Day of Procedure), Routine sodium chloride 0.9 % flush 5-20 mL 5-20 mL, Intravenous, EVERY 1 MIN PRN, Starting on Mon10/13/15 at 0852, Until Mon10/13/15 at 1254, flush, Flush pertains to all indwelling lines. Flush per protocol found in the job aid using the link provided on this medication record., Routine Linked Groups Order Group 1: fentaNYL (PF) 50 mcg/mL 2mL syringeJump to med 25 mcg, Intravenous, EVERY 5 MIN PRN, Pain, for 1-4 pain score, Starting on Mon10/13/15 at 0914, Until Mon10/13/15 at 1254, for 1-4 pain score Hold for respiratory rate less than 10 per minute. Maximum dose: 250 mcg over one hour., PACU Recovery Or fentaNYL (PF) 50 mcg/mL 2mL syringeJump to med 50 mcg, Intravenous, EVERY 5 MIN PRN, Pain, for 5-10 pain score, Starting on Mon10/13/15 at 0914, Until Mon10/13/15 at 1254, for 5-10 pain score Hold for respiratory rate less than 10 per minute. Maximum dose: 250 mcg over one hour., PACU Recovery Group 2: fentaNYL (PF) 50 mcg/mL 2mL syringeJump to med 25 mcg, Intravenous, EVERY 5 MIN PRN, Pain, for 1-4 pain score, Starting on Mon10/13/15 at 0914, Until Mon10/13/15 at 1254, for 1-4 pain score Hold for respiratory rate less than 10 per minute. Maximum dose: 250 mcg over one hour., PACU Recovery Or fentaNYL (PF) 50 mcg/mL 2mL syringeJump to med 50 mcg, Intravenous, EVERY 5 MIN PRN, Pain, for 5-10 pain score, Starting on Mon10/13/15 at 0914, Until Mon10/13/15 at 1254, for 5-10 pain score Hold for respiratory rate less than 10 per minute. Maximum dose: 250 mcg over one hour., PACU Recovery documented in this encounter
--- OUTSIDE RECORDS SUMMARY | 2023-10-04 01:07 | XMS_ITS | Encounter Summary ---
[place] [address] Care Team Providers Care Chief Operating Officer Name Role Phone Dina Diaz Primary Care Provider + Encounter Details Date Type Department Care Team (Late st Contact Info) Description 10/01/2020 Telephone Sleep Center at [facility] [address] [place] [address] Sasha Chaparro Social History Tobacco Use Types Packs/Day Years [...] encounter Miscellaneous Notes * Telephone Encounter - Sasha Chaparro - 10/01/2020 11:23 AM EDT The patient had an actigraphy and was scheduled for psg/mslt. Patient completed the psg and declined to stay for the mslt. Did anyone read the actigraphy? This is still an open encounter. Should I tereza this as an erroneous encounter or is someone going to read/bill for the actigraphy? documented in this encounter Plan of Treatment Not on file documented as of this encounter Visit Diagnoses Not on filedocumented in this encounter Care Teams Chief Operating Officer Relationship Specialty Start Date End Date Dina Diaz PA [address] [place] [address] [place] [address] PCP - General Internal Medicine 05/26/20 documented as of this encounter
--- OUTSIDE RECORDS SUMMARY | 2023-10-04 01:07 | XMS_ITS | Encounter Summary ---
[place] [address] Care Team Providers Care Riprap Placer Name Role Phone Unavailable Primary Care Provider Unavailabl e Reason for Visit * Reason Onset Date Comments Post Procedure Call 10/14/2015 10/13/2015 Encounter Details Date Type Department Care Team (Late st Contact Info) Description 10/14/2015 Telephone Obstetrics [place] [phone] Daysi Pinto Post Procedure Call (10/13/2015) Social History Tobacco Use Types Packs/Day Years [...] encounter Miscellaneous Notes * Telephone Encounter - Daysi Pinto RN - 10/14/2015 3:13 PM EDT POST-OP TELEPHONE UPDATE Date of Surgery: 10/13/2015 Overall well-being: I am still having a lot of pain Pain?: 09/05 Pain medication working(Y/N)?: no Location of pain: Generalized, groin area bilateral Bladder function: yes Bowel function: No: passing flatus Ambulating: No: pain with ambulation Tolerating solids / liquids: well-tolerated Dressings: none Incisions: patient denies Vaginal bleeding: No: patient denies Fever: No: patient denies Post Op appointment booked? Yes, however patient needs to reschedule, will send to scheduling Instructions: We reviewed phone contacts. The patient will call triage at during daytime hours or during the evening or weekends and ask for the magnetic tape typewriter operator insulation cupola operator if she is having problems. Daysi Pinto, RN documented in this encounter Plan of Treatment Not on file documented as of this encounter Visit Diagnoses Not on filedocumented in this encounter
--- OUTSIDE RECORDS SUMMARY | 2023-10-04 01:07 | XMS_ITS | Encounter Summary ---
Author Organization [facility] [place] [address] Care Team Providers Care Office Assistant Receptionist Name Role Phone Unavailable Primary Care Provider Unavailabl e Encounter Details Date Type Department Care Team (Late st Contact Info) Description 07/14/2015 Abstract [facility] Information Services [address] [place] [address] [place] [phone] Provider, His Henrique MD Social History Tobacco [...] Taken Comments Blood Pressure - - Pulse 99 07/14/2015 9:30 AM EDT Sourced from [employer] Conversion Temperature - - Respiratory Rate - - Oxygen Saturation - - Inhaled Oxygen Concentration - - Weight 78 kg (172 lb) 07/14/2015 9:30 AM EDT Sourced from [employer] Height 165.7 cm (5' 5.25) 07/14/2015 9 :30 AM EDT Sourced from [place] Conversion Body Mass Index 28.4 07/14/2015 9:30 AM EDT documented in this encounter Plan of Treatment Not on file documented as of this encounter Visit Diagnoses Not on filedocumented in this encounter
--- OUTSIDE RECORDS SUMMARY | 2023-10-04 01:07 | XMS_ITS | Encounter Summary ---
Author Organization [facility] [place] [address] Care Team Providers Care Neck Fitter Name Role Phone Dina Diaz Primary Care Provider + Encounter Details Date Type Department Care Team (Late st Contact Info) Description 07/21/2020 Telephone Sleep Center at [facility] [address] [place] [address] Fouzia Donis Social History Tobacco Use Types [...] on filedocumented in this encounter Care Teams Neck Fitter Relationship Specialty Start Date End Date Dina Diaz PA [address] [place] [address] PCP - General Internal Medicine 05/26/20 documented as of this encounter
--- OUTSIDE RECORDS SUMMARY | 2023-10-04 01:07 | XMS_ITS | Encounter Summary ---
[place] [address] Care Team Providers Care Hearing Aid Fitter Name Role Phone Dina Diaz Primary Care Provider + Encounter Details Date Type Department Care Team (Late st Contact Info) Description 05/23/2021 12:05 AM EDT Ancillary Procedure [place] [address] Dina Diaz PA [address] [place] [id number] Social History Tobacco Use Types Packs/Day Years [...] Associated Diagnosis Comments FILM LIBRARY STORAGE ONLY CT HEAD Routine 05/23/2021 12:05 AM EDT documented in this encounter Results * Film Library- Storage Only CT Head (05/23/2021 12:05 AM EDT) Narrative ILIANA - 07/20/2021 1:41 PM EDT This exam is auto-finalizing. It's purpose is for storage only. Dina MONTEIRO IMG FILM LIBRARY ORDERABLES [place], [place] documented in this encounter Visit Diagnoses Not on filedocumented in this encounter Care Teams Hearing Aid Fitter Relationship Specialty Start Date End Date Dina Diaz PA [address] [place] [address] [place] [address] PCP - General Internal Medicine 05/26/20 documented as of this encounter
--- OUTSIDE RECORDS SUMMARY | 2023-10-04 01:07 | XMS_ITS | Encounter Summary ---
[place] [address] Care Team Providers Care Electrical Electronics Technician Name Role Phone Unavailable Primary Care Provider Unavailabl e Encounter Details Date Type Department Care Team (Late st Contact Info) Description 05/28/2017 Ancillary Procedure [place] [phone] Dina Diaz PA [address] [place] [address] Social History Tobacco Use Types Packs/Day Years [...] FILM LIBRARY STORAGE ONLY CT HEAD Routine 05/28/2017 12:00 AM EDT documented in this encounter Results * Film Library- Storage Only CT Head (05/28/2017 12:00 AM EDT) Narrative [facility] - 07/20/2021 1:40 PM EDT This exam is auto-finalizing. It's purpose is for storage only. Dina MONTEIRO [facility] FILM LIBRARY ORDERABLES [place], [place] documented in this encounter Visit Diagnoses Not on filedocumented in this encounter
--- OUTSIDE RECORDS SUMMARY | 2023-10-04 01:07 | XMS_ITS | Encounter Summary ---
Author Organization [facility] [place] [address] Care Team Providers Care Research And Development Researcher Name Role Phone Dina Diaz Primary Care Provider + Encounter Details Date Type Department Care Team (Late st Contact Info) Description 09/24/2020 Telephone Sleep Center at [facility] [address] [place] [address] Kylah Guerra Social History Tobacco Use Types Packs/Day Years [...] encounter Miscellaneous Notes * Telephone Encounter - Kylah Reveles - 09/24/2020 7:44 AM EDT Emilee opted out of the MSLT today prior to the start of the first nap, she stated that her results should be no different than what was seen back in October and we should go ahead and use those. documented in this encounter Plan of Treatment Not on file documented as of this encounter Visit Diagnoses Not on filedocumented in this encounter Care Teams Research And Development Researcher Relationship Specialty Start Date End Date Dina Diaz PA [address] [place] [address] [place] [address] PCP - General Internal Medicine 05/26/20 documented as of this encounter
--- OUTSIDE RECORDS SUMMARY | 2023-10-04 01:07 | XMS_ITS | Encounter Summary ---
Author Organization [facility] Address [facility] [place] [address] Care Team Providers Care Behavior Therapist Name Role Phone Dina Diaz Primary Care Provider + Reason for Visit * Diagnostic Test (Routine) - Closed Specialty Diagnoses / Procedures Referred By John almaraz Referred To Contact Sleep Center Diagnoses Sleep apnea, unspecified type Procedures Sleep Study Diagnostic PSG / Split Night PSG Fay Blake APRN [facility] [place] [address] [facility] [address] [place] [address] Referral ID Status Reason Start Date Expiration Date V isits Requested Visits Authorized [id number] Closed Specialty Service Requested 07/14/2020 07/14/2021 1 1 Encounter Details Date Type Department Care Team (Late st Contact Info) Description 09/23/2020 7:30 PM EDT Procedure visit [facility] at [facility] [address] [place] [address] Milagro Diehl MD [facility] [place] [address] YAHIR (obstructive sleep apnea) Social History Tobacco [...] Sign Reading Time Taken Comments Blood Pressure 102/62 09/23/2020 7:56 PM EDT Pulse 83 09/23/2020 7:56 PM EDT Temperature - - Respiratory Rate - - Oxygen Saturation 100% 09/23/2020 7:56 PM EDT Inhaled Oxygen Concentration - - Weight 59.4 kg (131 lb) 09/23/2020 7:56 PM EDT Height 165.1 cm (5' 5) 09/23/2020 7:56 PM EDT Body Mass Index 21.8 09/23/2020 7:56 PM EDT documented in this encounter Progress Notes * Milagro Diehl MD - 09/23/2020 7:30 PM EDT Images from the original note were not included. REPORT OF DIAGNOTIC POLYSOMNOGRAM History Of Present Illness: Emilee Wilhelm is a 50 y.o. female who presents for a polysomnogram. Polysomnography: The patient's sleep was evaluated for one night at the [facility]. Sleep was monitored in accordance with recommended AASM guidelines. The recording also included oral/nasal airflow, chest and abdominal respiratory effort, nasal pressure, single channel EKG, intercostalEMG, bilateral tibialis EMG, and oxygen saturation (by pulse oximeter). Comment: - Sleep/EEG: Sleep efficiency: mildly reduced at 77%; awakenings after sleep onset Sleep architecture: normal REM observed: yes; latency prolonged; REM percentage borderline increased Supine sleep observed: yes (60%) Total sleep time: 452 min (7 hrs, 32 min) - Respiratory: Snoring: not reported Obstructive respiratory events observed: yes; predominantly in the supine sleeping position AHI: 13 (supine AHI 16 vs non-supine AHI 9) CMS AHI: 2 (includes apneas + only hypopneas associated with 4% or greater desaturation) Mean SpO2: 97% Minimum SpO2: 93% - EKG: Normal sinus rhythm without significant ectopy. - EMG: Unremarkable. Assessment: .Emilee Wilhelm is a 50 y.o. female whose [...] results and recommendations relayed to patient via [facility] Recommendations: 1. Can consider treatment for mild YAHIR to assess for symptom improvement; treatment options includeconservative measures such as avoidance of supine sleeping position. Could also consider trial of treatment with CPAP. Recommended patient discuss consideration of treatment with her sleep medicine provider, Fay Blake APRN [facility] Sleep Disorders Center REPORT of Diagnostic Polysomnography Patient Name: Emilee Wilhelm Study Date: 09/23/2020 Age & Sex: 50 y.o. Female Height: 5'5 Date of : 1970 Weight: 131 lbs BMI: 21.8 Referring Provider: Recording Technologist: BARBARA MIGUEL Scoring Technologist: BARBARA GUY Sleep Fellow: Sleep Specialist: Scoring Technologist Comments: ECG: Ectopy: Description of Study: Diagnostic polysomnography was performed utilizing frontal, central & occipital EEG, EOG, submentalis EMG, oronasal thermocouple, nasal pressure, ECG, thoracic and abdominalinductance plethysmography, right and left anterior tibialis EMG, snore sensor, and pulse oximetry according to AASM established guidelines. Study Details & Sleep Architecture Diagnostic Start Time (Lights Off): 21:05:55 Total Recording Time: 586.5 min Diagnostic End Time (Lights On): 06:52:25 Total Sleep Time (minutes): 452.0 Total Num. of Stage Shifts: 168 Total Sleep Time (hrs:min): 7:32.0 Total Num. of Awakenings: 39 Sleep Onset Latency: 5.5 min Total Num. of Trans. to N1: 53 Sleep Efficiency: 77.1% Total Num. of REM Periods: 5 Stage Results: Time (minutes) %TST Latency (minutes) WASO: 128.0 - - N1: 43.0 9.5 0.0 N2: 260.0 57.5 1.0 N3: 28.5 6.3 25.0 REM: 120.5 26.7 136.5 90.0 (minus wake) Arousal Counts: NREM REM Total Spontaneous: 43 (7.8/hr) 3 (1.5/hr) 46 (6.1/hr) Sum of All Arousals: 99 (17.9/hr) 23 (11.5/hr) 122 (16.2/hr) Spontaneous arousals include only EEG arousals not associated with a respiratory event or PLM. Body Position: Supine Non-Supine Non-REM: 196.0 min 135.5 min REM: 74.0 min 46.5 min Total Sleep: 270.0 min (59.7%) 182.0 min (40.3%) Respiratory Events Apneas Obstructive Mixed Central Total Apneas Total Count: 3 1 8 12 Mean Duration (sec): 12 19 12 13 Longest Duration (sec): 12.8 19.0 16.6 19 Index (REM/NREM): 1.5 / 0.0 0.0 / 0.2 0.5 / 1.3 2.0/ 1.4 Index (Sup./Non-Sup.): 0.7 / 0.0 0.2 / 0.0 1.6 / 0.3 2.4/ 0.3 Index (Total): 0.4 0.1 1.1 1.6 Hypopneas & RERAs Hypopnea Definitions: Hypopnea* CMS Hypopnea AASM Central Hypopneas Hypopneas All RERA Total Count: 0 87 0 88 0 Mean Duration (sec): - 20.9 0.0 21 0 Longest Duration (sec): 0.0 62.2 0.0 62 0 Index (REM/NREM): 0.0/0.0 9.5/12.3 0.0 / 0.0 9.5/ 12.3 0.0 0.0 Index (Sup./Non-Sup.): 0.0 / 0.0 13.6/ 8.6 0.0 / 0.0 13.6/ 8.6 0.0 / 0.0 Index (Total): 0.0 11.5 0.0 11.5 0.0 *CMS-defined hypopneas include only hypopneas with a >=4% oxygen desaturation. Includes hypopneas with an arousal or with a 3%-4% desaturation. Periodic Breathing Total Sleep Time Time (minutes) 0.0 Time (%Sleep Time) 0.0 AHI: Includes all apneas & all hypopneas associated with an arousal or a ? 3% desaturation. Supine Non-Sup. REM NREM Total Count: 72 27 23 76 99 Index (events/hr): 16.0 8.9 11.5 13.8 AHI = 13.1 CMS AHI: Includes all apneas & only hypopneas associated with a ? 4% desaturation. Supine Non-Sup. REM NREM Total Count: 11 1 4 8 12 Index (events/hr): 2.4 0.3 2.0 1.4 CMS = 1.6 Obstructive AHI: Includes obstructive & mixed apneas as well as all hypopneas. Excludes centralapneas and RERAs. Supine Non-Sup. REM NREM Total Count: 65 26 22 69 91 Index (events/hr): 14.4 8.6 11.0 12.5 OAHI = 12.1 RDI: Includes all apneas, all hypopneas, all RERAs, and all ???Unsure??? events. Supine Non-Sup. REM NREM Total Count: 72 27 23.1 76.2 99 Index (events/hr): 16.0 8.9 11.5 13.8 RDI = 13.1 Oxygen Saturation Details SpO2 Awake NREM REM All Sleep BETHANY Report Sleep Mean: 97% 97% 97% 97% 3% BETHANY 1.1 0.4 Minimum: - 93% 93% 93% 4% BETHANY 0.3 0.0 SpO2 Awake (minutes) NREM (minutes) REM (minutes) All Sleep (minutes) ?90% 0.3 0.0 0.0 0.0 ?89% 0.3 0.0 0.0 0.0 ?88% 0.3 0.0 0.0 0.0 90-99% 116.2 329.6 120.5 450.1 80-89.9% 0.0 0.0 0.0 0.0 79-79.9% 0.0 0.0 0.0 0.0 60-69.9% 0.0 0.0 0.0 0.0 50-59.9% 0.0 0.0 0.0 0.0 ?50% 0.3 0.0 0.0 0.0 Cardiac Details Heart Rate (bpm) Total Study NREM REM All Sleep Minimum - 67 70 67 Maximum 175 107 95 107 Mean - 80 82 80 Limb Movement Details Periodic Limb Movements Total PLMs (and Index) PLMs w/ Arousals (and Index) Wake (after ???Lights Off???): 0 (0.0/hr) 0 (0.0/hr) NREM: 0 (0.0/hr) 0 (0.0/hr) REM: 0 (0.0/hr) 0 (0.0/hr) Total Sleep: 0 (0.0/hr) 0 (0.0/hr) Graphs PLMs Body Position * Fay Blake APRN - 09/23/2020 7:30 PM EDT Please contact for F/U visit to review results of PSG. Thank you. documented in this encounter Plan of Treatment Not on file documented as of this encounter Visit Diagnoses Diagnosis YAHIR (obstructive sleep apnea) Obstructive sleep apnea (adult) (pediatric) documented in this encounter Care Teams Behavior Therapist Relationship Specialty Start Date End Date Dina Diaz PA [address] [place] [address] [place] [address] PCP - General Internal Medicine 05/26/20 documented as of this encounter
--- OUTSIDE RECORDS SUMMARY | 2023-10-04 01:07 | XMS_ITS | Encounter Summary ---
[place] [address] Care Team Providers Care Cigar Head Piercer Name Role Phone Dina Diaz Primary Care Provider + Encounter Details Date Type Department Care Team (Late st Contact Info) Description 07/21/2020 Orders Only Sleep Center at [address] [address] [place] [address] Sleep apnea, unspecified type; Narcolepsy and cataplexy; Insomnia, unspecified type Social [...] encounter Visit Diagnoses Diagnosis Sleep apnea, unspecified type Narcolepsy and cataplexy Narcolepsy with cataplexy Insomnia, unspecified type documented in this encounter Care Teams Cigar Head Piercer Relationship Specialty Start Date End Date Dina Diaz PA [address] [place] [address] [place] [address] PCP - General Internal Medicine 05/26/20 documented as of this encounter
--- OUTSIDE RECORDS SUMMARY | 2023-10-04 01:07 | XMS_ITS | Encounter Summary ---
[place] [address] Care Team Providers Care Cipher Expert Name Role Phone Dina Diaz Primary Care Provider + Encounter Details Date Type Department Care Team (Late st Contact Info) Description 01/04/2021 Telephone Hematology [place] [address] Yudith Joy Social History Tobacco Use Types [...] Telephone Encounter - Yudith Joy - 01/04/2021 10:54 AM EST Patient Name: Emilee Wilhelm Patient : 1970 Attn: [facility] Image Library From: [facility] - [phone] Fed-Ex# [id number] - Please overnight [] Urgent [x] For Review [] Please Reply [] Please Recycle Pursuant to the Federal Mammography Quality Standards Act-Section 900.12(c), (4), (ii) Comments: Please send all Mammograms, Ultrasounds & Breast MRIs or any scan pertaining to breast cancer. (CD, Films, Electronic Transfer & Reports) to [facility], [place] [address] If Questions call [phone] Notice of Confidentiality: The documents accompanying this FAX transmission cover contain information from [facility] that is confidential and privileged. The information is intended for the use of the individual or entity named on this transmittal sheet. If you are not the intended recipient, be aware that any disclosure, copying, distribution or use of the contents is prohibited. If you have received the FAX in error, please notify us by telephone (collect) immediately to permit us to arrange for the retrieval of the documents at no cost to you. documented in this encounter Plan of Treatment Not on file documented as of this encounter Visit Diagnoses Not on filedocumented in this encounter Care Teams Cipher Expert Relationship Specialty Start Date End Date Dina Diaz PA [address] [place] [address] [place] [address] PCP - General Internal Medicine 05/26/20 documented as of this encounter
--- OUTSIDE RECORDS SUMMARY | 2023-10-04 01:07 | XMS_ITS | Encounter Summary ---
[place] [address] Care Team Providers Care Digital Media Intern Name Role Phone Unavailable Primary Care Provider Unavailabl e Encounter Details Date Type Department Care Team (Late st Contact Info) Description 07/31/2019 Ancillary Procedure [place] [phone] Dina Diaz PA [address] [place] [address] Social History Tobacco Use Types Packs/Day Years [...] Comments FILM LIBRARY STORAGE ONLY MAMMO Routine 07/31/2019 12:00 AM EDT documented in this encounter Results * Film Library- Storage Only Mammo (07/31/2019 12:00 AM EDT) Narrative [facility] - 01/04/2021 1:57 PM EST This exam is auto-finalizing. It's purpose is for storage only. Dina MONTEIRO IMG FILM LIBRARY ORDERABLES [place], [place] documented in this encounter Visit Diagnoses Not on filedocumented in this encounter
--- OUTSIDE RECORDS SUMMARY | 2023-10-04 01:07 | XMS_ITS | Encounter Summary ---
[place] [address] Care Team Providers Care Nursing Services Manager Name Role Phone Unavailable Primary Care Provider Unavailabl e Encounter Details Date Type Department Care Team ([facility] st Contact Info) Description 07/16/2015 8:40 AM EDT Office Visit [facility] [address] [place] [address] Feli Segura DO [address] [place] [address] Social History Tobacco Use Types Packs/Day Years [...]
--- OUTSIDE RECORDS SUMMARY | 2023-10-04 01:07 | XMS_ITS | Encounter Summary ---
Author Organization [facility] [place] [address] Care Team Providers Care Cylindrical Mixer Name Role Phone Unavailable Primary Care Provider Unavailabl e Encounter Details Date Type Department Care Team (Late st Contact Info) Description 08/04/2015 Abstract [facility] Information Services [address] [place] [address] JABARI Duenas [phone] Provider, His Henrique MD Social History Tobacco [...] Taken Comments Blood Pressure - - Pulse 106 08/04/2015 1:20 PM EDT Sourced from [facility] Conversion Temperature - - Respiratory Rate - - Oxygen Saturation - - Inhaled Oxygen Concentration - - Weight 77.6 kg (171 lb) 08/04/2015 1:20 PM EDT Sourced from [place] Conversion Height - - Body Mass Index 28.24 07/14/2015 9:30 AM EDT documented in this encounter Plan of Treatment Not on file documented as of this encounter Procedures Procedure Name Priority Date/Time Associated Diagnosis Comments CBC (WITH DIFF) Routine 08/04/2015 6:03 PM EDT documented in this encounter Results * (ABNORMAL) CBC (with Diff) (08/04/2015 6:03 PM EDT) Baso Absolute 0.04(Exte rnal Lab) 0.0 - 0.2 THOUS [facility] RESULT CONVERSION Comment: Sourced from [place] [facility] Conversion Basophil % 0.4(Exter nal Lab) 0.0 - 2.0 percent [facility] RESULT CONVERSION Comment: Sourced from [place] [facility] Conversion Eosinophils Abs 0.25(Exte rnal Lab) 0.0 - 0.8 THOUS [facility] RESULT CONVERSION Comment: Sourced from [place] [facility] Conversion Eos % 2.5(Exter nal Lab) 0.0 - 7.0 percent [facility] RESULT CONVERSION Comment: Sourced from [place] [facility] Conversion Immature Gran Absolute 0.03(Exte rnal Lab) 0.0 - 0.05 THOUS [facility] RESULT CONVERSION Comment: Sourced from [place] [facility] Conversion Immature Gran % 0.3(Exter nal Lab) 0.0 - 0.66 %/100 WBC [facility] RESULT CONVERSION Comment: Sourced from [facility] [place] Conversion Hematocrit 41.5(Exte rnal Lab) 37.0 - 47.0 percent [facility] RESULT CONVERSION Comment: Sourced from [facility] [place] Conversion Hemoglobin 14.2(Exte rnal Lab) 12.0 - 16.0 g/dl [facility] RESULT CONVERSION Comment: Sourced from [facility] [place] Conversion White Blood Cell 9.95(Exte rnal Lab) 4.8 - 10.8 THOUS [facility] RESULT CONVERSION Comment: Sourced from [facility] [place] Conversion Lymphocytes Abs 3.18(Exte rnal Lab) 0.90 - 5.20 THOUS [facility] RESULT CONVERSION Comment: Sourced from [facility] [place] Conversion Lymph % 32.0(Exte rnal Lab) 19.0 - 48.0 percent [facility] RESULT CONVERSION Comment: Sourced from [facility] Conversion Mean Cell Hemoglobin 29.2(Exte rnal Lab) 27 - 31 pg [facility] RESULT CONVERSION Comment: Sourced from [facility] Conversion Mean Cell Hemoglobin Concentration 34.2(Exte rnal Lab) 33 - 37 g/dl [facility] RESULT CONVERSION Comment: Sourced from [facility] [place] Conversion Mean Cell Volume 85.4(Exte rnal Lab) 81 - 99 FL [facility] RESULT CONVERSION Comment: Sourced from [facility] [place] Conversion Monocyte Abs 0.80(Exte rnal Lab) 0.16 - 1.00 THOUS [facility] RESULT CONVERSION Comment: Sourced from [facility] [place] Conversion Monocyte % 8.0(Exter nal Lab) 3.4 - 9.0 percent [facility] RESULT CONVERSION Comment: Sourced from [facility] [place] Conversion Mean Platelet Volume 9.5(Exter nal Lab) 7.2 - 11.1 FL [facility] RESULT CONVERSION Comment: Sourced from [place] [facility] Conversion ANC 5.65(Exte rnal Lab) 1.90 - 8.00 THOUS [facility] RESULT CONVERSION Comment: Sourced from [facility] Conversion Neutrophil % 56.8(Exte rnal Lab) 40.0 - 74.0 percent [facility] RESULT CONVERSION Comment: Sourced from [facility] [place] Conversion NRBC Absolute 0.00(Exte rnal Lab) 0.0 - 0.012 THOUS [facility] RESULT CONVERSION Comment: Sourced from [facility] [place] Conversion NRBC% auto 0.0(Exter nal Lab) 0.0 - 0.2 %/100 WBC [facility] RESULT CONVERSION Comment: Sourced from [place] [facility] Conversion Platelet 358(Exter nal Lab) 130 - 400 THOUS [facility] RESULT CONVERSION Comment: Sourced from [facility] [place] Conversion Red Blood Cell 4.86(Exte rnal Lab) 4.2 - 5.4 MILLIONS [facility] RESULT CONVERSION Comment: Sourced from [facility] [place] Conversion RDW coefficient of variation 14.0(Exte rnal Lab) 11.5 - 14.5 percent [facility] RESULT CONVERSION Comment: Sourced from [facility] Conversion 08/04/2015 6:03 PM EDT His Henrique Provider HEMATOLOGY ORDERAB LES [facility] RESULT CONVERSION documented in this encounter Visit Diagnoses Not on filedocumented in this encounter
--- OUTSIDE RECORDS SUMMARY | 2023-10-04 01:07 | XMS_ITS | Encounter Summary ---
Author Organization [facility] [place] [address] Care Team Providers Care Hvac Services Professional Name Role Phone Dina Diaz Primary Care Provider + Encounter Details Date Type Department Care Team (Latest Contact Info) Description 01/07/2021 10:09 AM EST - 01/07/2021 11:59 PM EST Hospital [place] [address] Kylee Valdivia MD [facility] [place] [address] Abnormal finding on breast imaging Discharge Disposition: Home Social History Tobacco Use [...] azelastine (ASTELIN) 137 mcg (0.1 %) Aerosol, Dent Every 12 hours. 03/17/2020 atorvastatin (Lipitor) 20 mg Tablet TAKE 1 TABLET BY MOUTH ONCE DAILY 07/01/2020 EPINEPHrine (EPIPEN) 0.3 mg/0.3 mL (1:1,000) Auto-InjectorIndications: Allergic rhinitis, unspecified allergic rhinitis type Inject 0.3 mLs into the muscle once as needed. 1 each 1 01/08/2015 Banophen 50 mg Capsule TAKE 1 CAPSULE BY MOUTH EVERY 6 TO 8 HOURS NEEDED 01/24/2020 03/14/2022 traZODone (Desyrel) 100 mg Tablet Take 100 mg by mouth nightly. 05/06/2020 07/25/2023 montelukast (Singulair) 10 mg Tablet 07/13/2020 06/29/2021 cyclobenzaprine (Flexeril) 10 mg Tablet TAKE 1 TABLET BY MOUTH THREE TIMES DAILY NEEDED 02/26/2020 11/24/2021 buPROPion XL (Wellbutrin XL) 300 mg Tablet Extended Release 24 hr TAKE 1 TABLET BY MOUTH ONCE DAILY IN THE MORNING FOR 30 DAYS 06/15/2020 02/03/2022 bisoprolol (ZEBETA) 5 mg Tablet 06/21/2020 06/29/2021 levocetirizine (XYZAL) 5 mg Tablet Take 5 mg by mouth daily. 06/29/2021 cholecalciferol, Vitamin D3, 1,000 unit Capsule Take 5,000 Units by mouth. 06/29/2021 fluticasone (FLONASE) 50 mcg/actuation Dent, Suspension 1 spray by Each Nare route 2 times daily. 11/23/2021 documented as of this encounter Plan of Treatment Not on file documented as of this encounter Procedures Procedure Name Priority Date/Time Associated Diagnosis Comments MAMMO DIAGNOSTIC CAD LEFT Routine 01/07/2021 11:04 AM EST Abnormal finding on breast imaging documented in this encounter Results * Mammo Diagnostic Cad Left (01/07/2021 11:04 AM EST) Anatomical Region Laterality Modality Breast Left Mammography Impressions 01/07/2021 12:10 PM EST Probably benign calcifications in the upper outer left breast, many of which demonstrate benign milk of calcium morphology. To confirm stability, a 6 month follow-up left mammogram with ML and CC magnification views, is recommended. Images and recommendations reviewed with a mammographic colleague who concurs. Recommendations reviewed with patient who concurs; the patient would like to perform the mammographic follow up images at [place], [place]. BI-RADS Category 3: Probably Benign Finding. Short interval follow-up or continued surveillance mammography Thank you for letting us participate in the care of this patient. ??If you are a health care provider and have any questions regarding this report, please contact the number below. ??For patients who have questions please contact the health restorative care technician that requested your imaging first. ? Electronically signed by: Deloris Aguilar MD, [facility] ([phone]), at 01/07/2021 12:10 PM Narrative 01/07/2021 12:10 PM EST EXAMINATION: MAMMO DIAGNOSTIC CAD LEFT CLINICAL HISTORY: Outside imaging: abnormal left breast calcifications. History of bilateral benign excisional biopsies in 2009. See Interpretation of Outside Breast Imaging by Dr. Kylee Valdivia on 01/01/2021 TECHNIQUE: Magnification spot compression true lateral, CC and XCCL views of the left breast were performed. COMPARISON: Multiple priors, most recent 01/01/2021 FINDINGS: Stable postsurgical change left upper outer quadrant. Diffusely scattered benign-appearing round calcifications in the upper outer quadrant, many of which demonstrate linear morphology on the true lateral views, consistent with benign milk of calcium. No suspicious calcifications identified. Kylee Valdivia MD IMG MAMMO ORDERABL ES documented in this encounter Visit Diagnoses Diagnosis Abnormal finding on breast imaging Other (abnormal) findings on radiological examination of breast documented in this encounter Care Teams Hvac Services Professional Relationship Specialty Start Date End Date Dina Diaz PA [address] [place] [address] [place] [address] PCP - General Internal Medicine 05/26/20 documented as of this encounter
--- OUTSIDE RECORDS SUMMARY | 2023-10-04 01:07 | XMS_ITS | Encounter Summary ---
Author Organization [facility] [place] [address] Care Team Providers Care Clamper Name Role Phone Unavailable Primary Care Provider Unavailabl e Encounter Details Date Type Department Care Team (Late st Contact Info) Description 10/15/2015 Abstract [facility] Information Services [address] [place] [address] JABARI Duenas [phone] Provider, His Henrique MD Social History Tobacco [...] Sign Reading Time Taken Comments Blood Pressure 106/64 10/15/2015 3:40 PM EDT Sourced from [employer] [facility] Conversion Pulse 93 10/15/2015 3:40 PM EDT Sourced from [place] Conversion Temperature - - Respiratory Rate - - Oxygen Saturation - - Inhaled Oxygen Concentration - - Weight 78 kg (172 lb) 10/15/2015 3:40 PM EDT Sourced from [place] Conversion Height - - Body Mass Index 28.62 10/13/2015 6:43 AM EDT documented in this encounter Plan of Treatment Not on file documented as of this encounter Procedures Procedure Name Priority Date/Time Associated Diagnosis Comments CBC (WITH DIFF) Routine 10/15/2015 5:25 PM EDT HEMOGLOBIN A1C Routine 10/15/2015 5:25 PM EDT documented in this encounter Results * (ABNORMAL) CBC (with Diff) (10/15/2015 5:25 PM EDT) Baso Absolute 0.06(Exte rnal Lab) 0.0 - 0.2 THOUS [facility] RESULT CONVERSION Comment: Sourced from [facility] [place] Conversion Basophil % 0.6(Exter nal Lab) 0.0 - 2.0 percent [facility] RESULT CONVERSION Comment: Sourced from [place] Conversion Eosinophils Abs 0.32(Exte rnal Lab) 0.0 - 0.8 THOUS [facility] RESULT CONVERSION Comment: Sourced from [place] Conversion Eos % 2.9(Exter nal Lab) 0.0 - 7.0 percent [facility] RESULT CONVERSION Comment: Sourced from [place] Conversion Immature Gran Absolute 0.05(Exte rnal Lab) 0.0 - 0.05 THOUS [facility] RESULT CONVERSION Comment: Sourced from [place] Conversion Immature Gran % 0.5(Exter nal Lab) 0.0 - 0.66 %/100 WBC [facility] RESULT CONVERSION Comment: Sourced from [facility] Conversion Hematocrit 40.0(Exte rnal Lab) 37.0 - 47.0 percent [facility] RESULT CONVERSION Comment: Sourced from [place] Conversion Hemoglobin 13.0(Exte rnal Lab) 12.0 - 16.0 g/dl [facility] RESULT CONVERSION Comment: Sourced from [place] Conversion White Blood Cell 10.86(EXT ERNAL/ABN ) 4.8 - 10.8 THOUS [facility] RESULT CONVERSION Comment: Sourced from [place] [facility] Conversion Lymphocytes Abs 4.00(Exte rnal Lab) 0.90 - 5.20 THOUS [facility] RESULT CONVERSION Comment: Sourced from [place] Conversion Lymph % 36.8(Exte rnal Lab) 19.0 - 48.0 percent [facility] RESULT CONVERSION Comment: Sourced from [place] Conversion Mean Cell Hemoglobin 28.8(Exte rnal Lab) 27 - 31 pg [facility] RESULT CONVERSION Comment: Sourced from [facility] [place] Conversion Mean Cell Hemoglobin Concentration 32.5(EXTE RNAL/ABN) 33 - 37 g/dl [facility] RESULT CONVERSION Comment: Sourced from [place] Conversion Mean Cell Volume 88.5(Exte rnal Lab) 81 - 99 FL [facility] RESULT CONVERSION Comment: Sourced from [place] Conversion Monocyte Abs 0.97(Exte rnal Lab) 0.16 - 1.00 THOUS [facility] RESULT CONVERSION Comment: Sourced from [facility] [place] Conversion Monocyte % 8.9(Exter nal Lab) 3.4 - 9.0 percent [facility] RESULT CONVERSION Comment: Sourced from [facility] [place] Conversion Mean Platelet Volume 9.0(Exter nal Lab) 7.2 - 11.1 FL [facility] RESULT CONVERSION Comment: Sourced from [place] Conversion ANC 5.46(Exte rnal Lab) 1.90 - 8.00 THOUS [facility] RESULT CONVERSION Comment: Sourced from [facility] [place] Conversion Neutrophil % 50.3(Exte rnal Lab) 40.0 - 74.0 percent [facility] RESULT CONVERSION Comment: Sourced from [place] Conversion NRBC Absolute 0.00(Exte rnal Lab) 0.0 - 0.012 THOUS [facility] RESULT CONVERSION Comment: Sourced from [place] Conversion NRBC% auto 0.0(Exter nal Lab) 0.0 - 0.2 %/100 WBC [facility] RESULT CONVERSION Comment: Sourced from [place] Conversion Platelet 277(Exter nal Lab) 130 - 400 THOUS [facility] RESULT CONVERSION Comment: Sourced from [place] Conversion Red Blood Cell 4.52(Exte rnal Lab) 4.2 - 5.4 MILLIONS [facility] RESULT CONVERSION Comment: Sourced from [facility] [place] Conversion RDW coefficient of variation 14.0(Exte rnal Lab) 11.5 - 14.5 percent [facility] RESULT CONVERSION Comment: Sourced from [facility] Conversion 10/15/2015 5:25 PM EDT His Henrique Provider HEMATOLOGY ORDERAB LES [facility] RESULT CONVERSION * (ABNORMAL) Hemoglobin A1c (10/15/2015 5:25 PM EDT) Hemoglobin A1c 5.6(Exter nal Lab) <5.7 percent [facility] RESULT CONVERSION Comment: Sourced from [facility] [place] Conversion 10/15/2015 5:25 PM EDT His Henrique Provider CHEMISTRY ORDERABL ES [facility] RESULT CONVERSION documented in this encounter Visit Diagnoses Not on filedocumented in this encounter
--- OUTSIDE RECORDS SUMMARY | 2023-10-04 01:07 | XMS_ITS | Encounter Summary ---
Author Organization [facility] [place] [address] Care Team Providers Care Home Aid Name Role Phone Unavailable Primary Care Provider Unavailabl e Reason for Visit * Reason Onset Date Comments Follow-up 11/05/2015 Encounter Details Date Type Department Care Team (Late st Contact Info) Description 11/05/2015 Telephone Obstetrics [place] [phone] Tram Moeller, RN Follow-up Social History Tobacco Use Types Packs/Day Years [...] Telephone Encounter - Tram Moeller, RN - 11/05/2015 3:00 PM EDT TELEPHONE NOTE Caller: Cris Moeller RN Reason for call: Inform pt of recent urine culture Assessment: Pt came in on 10/30/15 for urinary symptoms. Pt had surgery on 10/12URETHRAL SUSPENSION, SLING\FASCIA OR SYNTHETIC (trans-obturator mid-urethral sling (Desara Blue) PV was checked and WNL. Plan/Instructions: Per This looks like a contaminant, If she is having burning, bladder pain, should repeat. Have left 3 messages for pt to call. documented in this encounter Plan of Treatment Not on file documented as of this encounter Visit Diagnoses Not on filedocumented in this encounter
--- OUTSIDE RECORDS SUMMARY | 2023-10-04 01:07 | XMS_ITS | Encounter Summary ---
[place] [address] Care Team Providers Care Power Plant Assistant Name Role Phone Dina Diaz Primary Care Provider + Encounter Details Date Type Department Care Team (Late st Contact Info) Description 08/27/2020 Ancillary Procedure [place] [address] Dina Diaz PA [address] [place] [id number] Social History Tobacco Use Types Packs/Day Years [...] Comments FILM LIBRARY STORAGE ONLY MAMMO Routine 08/27/2020 12:00 AM EDT documented in this encounter Results * Film Library- Storage Only Mammo (08/27/2020 12:00 AM EDT) Narrative [facility] - 01/04/2021 1:58 PM EST This exam is auto-finalizing. It's purpose is for storage only. Dina MONTEIRO IMG FILM LIBRARY ORDERABLES [place] documented in this encounter Visit Diagnoses Not on filedocumented in this encounter Care Teams Power Plant Assistant Relationship Specialty Start Date End Date Dina Diaz PA [address] [place] [address] [place] [address] PCP - General Internal Medicine 05/26/20 documented as of this encounter
--- OUTSIDE RECORDS SUMMARY | 2023-10-04 01:07 | XMS_ITS | Encounter Summary ---
Author Organization [facility] [place] [address] Care Team Providers Care Mixer Crane Operator Name Role Phone Dina Diaz Primary Care Provider + Reason for Visit * (Routine) - Closed Specialty Diagnoses / Procedures Referred By John almaraz Referred To Contact Radiology Diagnoses Breast calcification, left Procedures Request for 2nd read Mammo Dina Diaz PA [address] [place] [id number] Referral ID Status Reason Start Date Expiration Date Visits Re quested Visits Authorized [id number] Closed 01/04/2021 01/04/2022 1 1 Encounter Details Date Type Department Care Team ([facility] st Contact Info) Description 01/04/2021 2:15 PM EST Ancillary Procedure [place] [address] Dina Diaz PA [address] [place] [phone] Breast calcification, left Social History Tobacco Use Types Packs/Day Years [...] Procedure Name Priority Date/Time Associated Diagnosis Comments REQUEST FOR 2ND READ MAMMO Routine 01/04/2021 2:14 PM EST Breast calcification, left documented in this encounter Results * Request for 2nd read Mammo (01/04/2021 2:14 PM EST) Anatomical Region Laterality Modality SO Impressions 01/04/2021 2:24 PM EST Recommend magnification spot compression true lateral view of the left breast calcifications to confirm layering characteristic of benign milk of calcium. BI-RADS Category 0: Incomplete-Need Additional Imaging Evaluation and/or Prior Mammograms for Comparison Our facility will coordinate this with the patient. Please note: The interpretation of the [facility] Breast Imaging Radiologist subspecialist may differ from the original radiologist's interpretation. This is usually not due to a deficiency of the original interpreting radiologist, rather due to the greater skill level afforded by sub-specialization in the field and/or reasonable variations in interpretations. If you have a concern regarding the [facility] interpretation you may contact the [facility] Breast [facility] at . Thank you for letting us participate in the care of this patient. ??If you are a health care provider and have any questions regarding this report, please contact the number below. ??For patients who have questions please contact the health youth career specialist that requested your imaging first. ? Electronically signed by: Kylee Valdivia MD, [facility] ([phone]), at 01/04/2021 2:24 PM Narrative 01/04/2021 2:24 PM EST INTERPRETATION OF OUTSIDE BREAST IMAGING I have been asked to consult on this patient by THANIA Henry because he/she believes a review of this study may change or alter the care of this patient. STUDIES FROM: [facility] DATES: 01/01/2021 CLINICAL HISTORY: ? MORE IMAGING, ? BX; Sending Institution [facility]; Date of exam 20210101; I believe a reinterpretation of this exam may alter care of Patient. Yes; LEFT BREAST CALCS, UOQ. CAT 4. ?? COMPARISONS: 08/27/2020 and prior FINDINGS: True lateral synthetic and digital breast tomosynthesis images along with spot compression magnification CC and spot compression magnification MLO views are provided. Unfortunately, the study does not include a spot compression magnification true lateral view to confirm what I suspect is benign milk of calcium. Procedure Note Kylee Valdivia MD - 01/04/2021 INTERPRETATION OF OUTSIDE BREAST IMAGING I have been asked to consult on this patient by Seamus Henryuse he/she believes a review of this study may change or alter the care ofthis patient. STUDIES FROM: [facility] DATES: 01/01/2021 CLINICAL HISTORY: ? MORE IMAGING, ? BX; Sending Institution [facility]; Date of exam 20210101; I believe a reinterpretation of this exammay alter care of Patient. Yes; LEFT BREAST CALCS, UOQ. CAT 4. COMPARISONS: 08/27/2020 and prior FINDINGS: True lateral synthetic and digital breast tomosynthesis images along withspot compression magnification CC and spot compression magnification MLO viewsare provided. Unfortunately, the study does not include a spot compression magnificationtrue lateral view to confirm what I suspect is benign milk of calcium. IMPRESSION Recommend magnification spot compression true lateral view of the leftbreast calcifications to confirm layering characteristic of benign milk ofcalcium. BI-RADS Category 0: Incomplete-Need Additional Imaging Evaluation and/orPrior Mammograms for Comparison Our facility will coordinate this with the patient. Please note: The interpretation of the [facility] BreastImaging Radiologist subspecialist may differ from the original radiologist's interpretation. This is usually not due to a deficiency of the original interpreting radiologist, rather due to the greater skill level affordedby sub-specialization in the field and/or reasonable variations ininterpretations. If you have a concern regarding the [facility] at . Thank you for letting us participate in the care of this patient. If youare a health care provider and have any questions regarding this report,please contact the number below. For patients who have questions please contactthe health youth career specialist that requested your imaging first. Electronically signed by: Kylee Valdivia MD, [facility]([phone]), at 01/04/2021 2:24 PM Dina MONTEIRO IMG OUTSIDE INTE RPRETATION ORDERABLES documented in this encounter Visit Diagnoses Diagnosis Breast calcification, left Other (abnormal) findings on radiological examination of breast documented in this encounter Care Teams Mixer Crane Operator Relationship Specialty Start Date End Date Dina Diaz PA [address] [place] [address] [place] [address] PCP - General Internal Medicine 05/26/20 documented as of this encounter
--- OUTSIDE RECORDS SUMMARY | 2023-10-04 01:07 | XMS_ITS | Encounter Summary ---
Author Organization [facility] [address] Care Team Providers Care Sap Bobj Developer Name Role Phone Unavailable Primary Care Provider Unavailabl e Reason for Visit * Auth/Cert Specialty Diagnoses / Procedures Referred By Contac t Referred To Contact Diagnoses Stress incontinence (female) (male) Stress urinary incontinence Procedures PRO SLING OPER STRES INCONTINENCE URETHRAL SUSPENSION, SLING\FASCIA OR SYNTHETIC Referral ID Status Reason Start Date Expiration Date Visits Re quested Visits Authorized [id number] 1 1 Encounter Details Date Type Department Care Team (Late st Contact Info) Description 10/13/2015 7:30 AM EDT - 10/13/2015 9:14 AM EDT Surgery [place] [address] Ariella Griffith MD [facility] [place] [address] URETHRAL SUSPENSION, SLING\FASCIA OR SYNTHETIC (WRVU 12.13) Social History Tobacco Use Types Packs/Day Years [...] Sign Reading Time Taken Comments Blood Pressure 82/46 10/13/2015 9:01 AM EDT Pulse 84 10/13/2015 9:01 AM EDT Temperature 36 ??C (96.8 ??F) 10/13/2015 9:01 AM EDT Respiratory Rate 16 10/13/2015 9:01 AM EDT Oxygen Saturation 100% 10/13/2015 9:01 AM EDT Inhaled Oxygen Concentration - - [...] in with the urogynecology office nurse at [phone] to review how your bladder is working and when the catheter use can be discontinued. For problems or concerns related to this hospitalization call: [phone] weekdays, or [phone] weekends or nights. Call your doctor if [...] 2 10/02/2015 10/20/2015 fluticasone (FLONASE) 50 mcg/actuation [place], Suspension 1 spray by Each Nare route 2 times daily. 11/23/2021 fexofenadine (PAULIE) 180 mg Tablet Take 180 mg by mouth daily. 07/14/2020 diphenhydrAMINE (BENADRYL) 25 mg capsule Take 25-50 mg by mouth as needed. 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 FARM OWNER OPERATOR - Admission Interval Note I have reviewed [...] Miscellaneous Notes * Op Note - Ariella Grfifith MD - 10/13/2015 9:11 AM EDT [facility] [place] Patient Name: Emilee Bernal : [id number] MR#: [id number] Case Date: 10/13/2015 Surgeon: Surgeon(s) and Role: [...] Operative Note Patient Name: Emilee Bernal : [id number] MR#: [id number] Case Date: 10/13/2015 Surgeon: Surgeon(s) and Role: [...] incontinence Stress incontinence, female Female stress incontinence Urine, incontinence, stress female Female stress incontinence documented in this encounter Administered Medications Inactive Administered Medications - up to 3 most recent administrations Medication Order MAR Action Action Date Dose Rate Site BUpivacaine (PF) (MARCAINE) 0.25 % (2.5 mg/mL) injection ONCE PRN, Starting on Mon10/13/15 at 0817, Until Mon10/13/15 at 1254, Intra-Operative (Intra-Procedure), Routine Given 10/13/2015 8:17 AM EDT 20 mg fentaNYL (PF) 50 mcg/mL 2mL syringe 25 [...] Given 10/13/2015 7:05 AM EDT 3 mg lidocaine-EPINEPHrine 1 %-1:200,000 injection ONCE PRN, Starting on Mon10/13/15 at 0818, Until Mon10/13/15 at 1254, Intra-Operative (Intra-Procedure), Routine Given 10/13/2015 8:18 AM EDT 5 mLs nalOXone (NARCAN) injection 40 mcg 40 mcg, [...] 0705 (New Bag - Prov ider: Regulo Donis RN)0735 (New Bag - Provider: Liliya Britt [...] 0854, Until Mon10/13/15 at 1254, Pain, Routine 0928 (Given - Provid er: Ryan Lane RN) [...] Until Mon10/13/15 at 1254, Intra-Operative (Intra-Procedure), Routine 817 (Given - Provid er: Ariella Griffith MD) [...]
--- OUTSIDE RECORDS SUMMARY | 2023-10-04 01:07 | XMS_ITS | Encounter Summary ---
[place] [address] Care Team Providers Care Burial Vault Deliverer And Installer Name Role Phone Dina Diaz Primary Care Provider + Encounter Details Date Type Department Care Team (Late st Contact Info) Description 05/23/2021 12:40 PM EDT Telehealth [place] [address] Telehealth, Neurology None Social History Tobacco Use Types Packs/Day Years [...] as of this encounter Miscellaneous Notes * Consult Note - Thiago Donnelly MD - 05/23/2021 12:40 PM EDT [facility] TELENEUROLOGY EMERGENT TELENEUROLOGY CONSULT NOTE Date 05/23/21 Patient: Emilee Wilhelm : 1970 Gender: female VISIT Requesting Location: [facility] Requesting Physician: Connie Guaman Consent obtained from: Patient Diagnosis/Reason for Consult: Dizziness, left sided heaviness Arrival Date: 05/23/2021 Arrival Time: 11 10 Consult Request Time:12.35 Start Time of Video Consult: 12.54 pm PROVIDER History: She says things are odd and not making sense. She was getting ready to go work around 10.30 am when the symptoms. She felt off balance. Now she is having some weakness on left side. She alsofeels some numbness on left side. She has a headache today. She gets migraines frequently, but not this bad. He right eye is droopy. Per boyfriend she complained of not feeling well, dizzy around 10.30. She insisted on going to workat [employer], so he drove her there but she was having trouble walking and dizzy due to which he had to take her to ED. Past Medical History: Past Medical History: Diagnosis Date ??? Allergic state ??? Anxiety ??? Bipolar disorder ??? Degenerative disc disease ??? Depression ??? Environmental allergies with anaphylaxis ??? Fibrocystic breast disease ??? Fibromyalgia ??? Gestational diabetes ??? Lower back injury 02/05/2013 ??? Lyme disease ??? PTSD (post-traumatic stress disorder) ??? Sleep apnea ??? Thyroid disorder Current Medications: Current Outpatient Medications: ??? Banophen 50 [...] , Rfl: ??? fluticasone (FLONASE) 50 mcg/actuation [place], Suspension, 1 spray by Each Nare route 2 times daily., Disp: , Rfl: ??? EPINEPHrine (EPIPEN) 0.3 mg/0.3 mL (1:1,000) Auto-Injector, Inject 0.3 mLs into the muscle onceas needed. (Patient not taking: Reported on 07/14/2020), Disp: 1 each, Rfl: 1 Allergies: Allergies Allergen Reactions ??? Abilify [Aripiprazole] Other (See Comments) hallucinations ??? Morphine Sulfate Nausea And Vomiting ??? Oxycodone-Acetaminophen Other (See Comments) rapid heart rate ??? Amitriptyline Hcl ??? Hydrocodone ??? Imipramine ??? Oxycodone Hcl ??? Soy ??? Tree Nuts Neurologic Family History: Family History Problem Relation Age of Onset ??? Coronary Artery Disease Mother ??? Diabetes Father ??? Breast Cancer Maternal Aunt ??? Breast Cancer Maternal Aunt Neurologic Social History: Social History Tobacco Use ??? Smoking status: Never Smoker ??? Smokeless tobacco: Never Used Vaping Use ??? Vaping Use: Never used Substance Use Topics ??? Alcohol use: No ??? Drug use: No Vitals: 97.1 126 114/71 18 100%RA NIH STROKE SCALE 1A. Level of Consciousness 0 1B. LOC Questions 0 1C. LOC Commands 0 2. Best Gaze 0 3. Visual 0 4. Facial Palsy 0 5. Motor Arm Left Arm 0 Right Arm 0 6. Motor Leg Left Leg 1 Right Leg 0 7. Limb Ataxia 0 8. Sensory 1 9. Best Language 0 10. Dysarthria 0 11. Extinction and Inattention (formerly neglect) 0 Neurologic Examination: Complains of double vision on rightward Director Of Blood weaker on the left side. Sensation feels cnc set up operator on left side. Radiology Imaging Imaging/Results:CT Head, CTA: unremarkable. Labs: CLINICAL IMPRESSION/DIAGNOSIS: 50 Y F with history of migraines, depression etc coming to ED with complaints of dizziness, headache, left sided sensory symptoms, subjective weakness, imbalance etc. On evaluation she has droopiness of R eye, mild weakness left side digital retoucher and some sensory changes on left side. CT Head/ CTA unremarkable. IMPRESSION: Left sided symptoms. ? Complicated Migraine. RECOMMENDATIONS/PLAN: She seems to have a complicated migraine rather than a stroke. tPA not recommended as deficits are minimal at this time. Recommend toradol/compazine for migraine control and assess for symptoms. She needs an MRI Brain at some point to rule out stroke. Aspirin 325 today. OBSERVATION/ADMISSION/TRANSFER: Observation. documented in this encounter Plan of Treatment Not on file documented as of this encounter Visit Diagnoses Not on filedocumented in this encounter Care Teams Burial Vault Deliverer And Installer Relationship Specialty Start Date End Date Dina Diaz PA [address] [place] [address] [place] [address] PCP - General Internal Medicine 05/26/20 documented as of this encounter
--- OUTSIDE RECORDS SUMMARY | 2023-10-04 01:07 | XMS_ITS | Encounter Summary ---
[place] [address] Care Team Providers Care Hospitalist Program Director Name Role Phone Unavailable Primary Care Provider Unavailabl e Encounter Details Date Type Department Care Team (Late st Contact Info) Description 04/25/2018 Ancillary Procedure [place] [id number] Dina Diaz PA [address] [place] [id number] Social History Tobacco Use Types Packs/Day Years [...] Comments FILM LIBRARY STORAGE ONLY MAMMO Routine 04/25/2018 12:00 AM EST documented in this encounter Results * Film Library- Storage Only Mammo (04/25/2018 12:00 AM EST) Narrative [facility] - 01/04/2021 1:57 PM EST This exam is auto-finalizing. It's purpose is for storage only. Dina MONTEIRO IMG FILM LIBRARY ORDERABLES [place], [place] documented in this encounter Visit Diagnoses Not on filedocumented in this encounter
--- OUTSIDE RECORDS SUMMARY | 2023-10-04 01:07 | XMS_ITS | Encounter Summary ---
[place] [address] Care Team Providers Care Leaf Tinner Name Role Phone Dina Diaz Primary Care Provider + Encounter Details Date Type Department Care Team (Late st Contact Info) Description 12/16/2020 Telephone [facility] [address] [place] [address] Sanjuanita Avila Social History Tobacco Use Types Packs/Day Years [...] encounter Miscellaneous Notes * Telephone Encounter - Sanjuanita Avila - 12/16/2020 8:00 AM EDT lvm for pt to call and schedule fu with kasandra castro to discuss alternatives to CPAP therapy documented in this encounter Plan of Treatment Not on file documented as of this encounter Visit Diagnoses Not on filedocumented in this encounter Care Teams Leaf Tinner Relationship Specialty Start Date End Date Dina Diaz PA [address] [place] [address] [place] [address] PCP - General Internal Medicine 05/26/20 documented as of this encounter
--- OUTSIDE RECORDS SUMMARY | 2023-10-04 01:07 | XMS_ITS | Encounter Summary ---
[place] [address] Care Team Providers Care Finish Mill Operator Name Role Phone Unavailable Primary Care Provider Unavailabl e Encounter Details Date Type Department Care Team (Late st Contact Info) Description 04/22/2016 Ancillary Procedure [place] [phone] Dina Diaz PA [address] [place] [id number] Social History Tobacco Use Types Packs/Day Years [...] Comments FILM LIBRARY STORAGE ONLY MAMMO Routine 04/22/2016 12:00 AM EST documented in this encounter Results * Film Library- Storage Only Mammo (04/22/2016 12:00 AM EST) Narrative [facility] - 01/04/2021 1:56 PM EST This exam is auto-finalizing. It's purpose is for storage only. Dian MONTEIRO IMG FILM LIBRARY ORDERABLES [place], [place] documented in this encounter Visit Diagnoses Not on filedocumented in this encounter
--- OUTSIDE RECORDS SUMMARY | 2023-10-04 01:07 | XMS_ITS | Encounter Summary ---
Author Organization [facility] [place] [address] Care Team Providers Care Dishwashing Machine Operator Name Role Phone Unavailable Primary Care Provider Unavailabl e Reason for Visit * Reason Comments Pre-op Exam Encounter Details Date Type Department Care Team (Late st Contact Info) Description 10/01/2015 1:30 PM EDT Office Visit Obstetrics [place] [address] Yolande Allan APRN [facility] OBSTETRICS & [place] [address] Pre-op exam Social History Tobacco Use Types Packs/Day Years [...] Sign Reading Time Taken Comments Blood Pressure 102/68 10/01/2015 1:30 PM EDT Pulse 94 10/01/2015 1:30 PM EDT Temperature 36.7 ??C (98 ??F) 10/01/2015 1:30 PM EDT Respiratory Rate - - Oxygen Saturation 99% 10/01/2015 1:30 PM EDT Inhaled Oxygen Concentration - - Weight 76.2 kg (168 lb) 10/01/2015 1:30 PM EDT Height 165 cm (5' 4.96) 10/01/2015 1:30 PM EDT Body Mass Index 27.99 10/01/2015 1:30 PM EDT documented in this encounter H&P Notes * Yolande Allan, TERRAZZO MECHANIC - 10/01/2015 1:30 PM EDT Date of Visit: 10/01/2015 Planned Surgery Date: 10/13/15 Planned Procedure: Mid urethral sling Indications/Pre-op Diagnosis: stress incontinence HISTORY OF PRESENT ILLNESS: Ms. Bernal is a 45 y.o. woman who presents for her preoperative examination. Patient with history of symptomatic stress incontinence, desires surgical repair. Please see prior encounter notes for more detail. REVIEW OF SYMPTOMS/FUNCTIONAL STATUS: Chest pain: no Shortness of breath: no Can you walk 1/2 mile or more? yes Can you go up more than 2 flights of stairs? yes Patient can dress herself? yes Prepare meals herself? yes Bleeding disorder (h/o nose bleeds, excessive bleeding following a surgical procedure?): no Personal or Family history of blood clots?: no Sexually active?: no Last PAP smear: Up to date- normal Past anesthesia problems?: no Past Medical History Diagnosis Date ??? Allergic [...] Tonsillectomy Nov 2006 ??? Uvulopalatopharygoplasty Nov 2006 Allergies Allergen Reactions ??? Abilify [Aripiprazole] Other (See Comments) hallucinations ??? Morphine Sulfate Nausea And Vomiting ??? Oxycodone-Acetaminophen Other (See Comments) rapid heart rate ??? Amitriptyline Hcl ??? Hydrocodone ??? Imipramine ??? Oxycodone Hcl ??? Soy Outpatient Prescriptions Marked as Taking for the 10/01/15 encounter (Office Visit) with Yolande Allan APRN Medication Sig Dispense Refill ??? QUEtiapine (SEROQUEL) 25 mg Tablet Take 1-2 tablets by mouth nightly. 60 tablet 1 ??? fluticasone (FLONASE) 50 mcg/actuation [place], Suspension 1 spray by Each Nare route [...] once as needed. 1 each 1 ??? diphenhydrAMINE (BENADRYL) 25 mg capsule Take 25-50 mg by mouth as needed. Allergies Allergen Reactions ??? Abilify [Aripiprazole] Other (See Comments) hallucinations ??? Morphine Sulfate Nausea And Vomiting ??? Oxycodone-Acetaminophen Other (See Comments) rapid heart rate ??? Amitriptyline Hcl ??? Hydrocodone ??? Imipramine ??? Oxycodone Hcl ??? Soy EXAM: General: alert/oriented x 3, NAD, cooperative ENT: No lymphadenopathy, pharynx clear, Good dentition Neck: No lymphadenopathy, no thyromegaly Chest: CTA alesha COR: RRR no murmur appreciated Abdomen: soft, non tender, no organomegaly Pelvic: deferred cough stress test Rectal: deferred to operating room. Extremities: no calf tenderness, no swelling IMPRESSION: Emilee Bernal is a 45 y.o. woman with stress incontinence who desires surgical repair. PLAN: ??? We will proceed with the above procedures on 10/13/15. ??? Anesthesia preference: per anesthesia ??? (x) Medications and herbal preparations reviewed Discussed: (x) Discontinuation of all herbal preparations, vitamin E 7-10 days preop (x) ASA, NSAIDS, Plavix: ( ) Hormones: ?? (x) Discontinue Solid foods at midnight ??? (x) Clear liquids (water, apple juice, alisa lauren, or black coffee) may be consumed until 2 hours prior to scheduled procedure. Consent: In Scan Documents. YOLANDE ALLAN APRN Division of Female Pelvic Medicine and Reconstructive Surgery documented in this encounter Plan of Treatment Not on file documented as of this encounter Visit Diagnoses Diagnosis Pre-op exam Preoperative examination, unspecified documented in this encounter
--- OUTSIDE RECORDS SUMMARY | 2023-10-04 01:08 | XMS_ITS | Encounter Summary ---
Author Organization [facility] [place] [address] Care Team Providers Care Lead Die Molder Name Role Phone Unavailable Primary Care Provider Unavailabl e Reason for Visit * Reason Comments Stress Urinary Incontinence Surgical Con sult Encounter Details Date Type Department Care Team (Late st Contact Info) Description 02/18/2015 2:30 PM EST Office Visit Obstetrics [place] [address] [facility] OBSTETRICS [place] [address] Mixed stress and urge urinary incontinence Social History Tobacco Use Types Packs/Day Years [...] Sign Reading Time Taken Comments Blood Pressure 128/80 02/18/2015 2:52 PM EST Pulse 96 02/18/2015 2:52 PM EST Temperature - - Respiratory Rate - - Oxygen Saturation - - Inhaled Oxygen Concentration - - Weight - - Height 165.7 cm (5' 5.25) 02/18/2015 2:52 PM ES T Body Mass Index - - documented in this encounter Patient Instructions * Patient Instructions* Abundio Griffith MD - 02/19/2015 9:36 AM EST Images from the original note were not included. ?? Complete the 3 day diary and mail back to us. ?? Return in about 6 weeks to review your symptoms after starting the oxybutynin (Ditropan XL) daily. ?? Call if you have bothersome dry mouth, constipation. ABUNDIO GRIFFITH MD Division of Female Pelvic Medicine and Reconstructive Surgery Department of Obstetrics & [place] [address] phone #: fax#: [employer] documented in this encounter Progress Notes * Abundio Griffith MD - 02/18/2015 3:11 PM EST Female Pelvic Medicine and Reconstructive Surgery @ [facility] Patient Name: Emilee Bernal Patient Primary Care Provider: THANIA ALVARADO Patient Active Problem List Diagnosis Code ??? Allergic rhinitis J30.9 ??? Back pain M54.9 ??? Work related injury Y99.0 ??? PTSD (post-traumatic stress disorder) F43.10 ??? Bipolar disorder F31.9 ??? Overactive thyroid gland E05.90 ??? Fibromyalgia M79.7 ??? Hypothyroidism E03.9 ??? Vitamin B 12 deficiency E53.8 ??? Sleep apnea G47.30 ??? LSIL (low grade squamous intraepithelial lesion) on Pap smear R89.6 ??? DDD (degenerative disc disease), lumbar M51.36 ??? Low back pain M54.5 ??? Polyp of colon, adenomatous D12.6 ??? Thyroid nodule E04.1 ??? Neck pain, chronic M54.2, G89.29 ??? Vitamin D deficiency E55.9 ??? Stress incontinence, female N39.3 Chief Complaint: Mixed incontinence History of Present Illness: Ms. Bernal is a 44 y.o. old woman. She presents for evaluation and assessment of urinary incontinence. She saw Rosa Allan APRN last week for evaluation of her incontinence. Her symptoms of incontinence are mixed. She is more embarrassed by urgency events but finds coughing / laughing / sneezing more frequent cause of leaking. She was given a diary to complete a baseline set of symptoms. She states she completed 2 of 3 days butdid not bring it with her today. Rosa had suggested she start mirabegron, 25 mg daily but this wastoo expensive. She has a new Rx for a trial of oxybutynin but has not started that. Goals for this visit 1. Decrease urine leakage. Past Medical History Diagnosis Date ??? Lower back injury 02/05/2013 ??? Bipolar disorder ??? PTSD (post-traumatic stress disorder) ??? Fibromyalgia ??? Environmental allergies with anaphylaxis ??? Degenerative disc disease ??? Allergic state ??? Depression ??? Gestational diabetes ??? Anxiety ??? Lyme disease ??? Fibrocystic breast disease ??? Sleep apnea ??? Thyroid disorder Past Surgical History Procedure Laterality Date ??? Mastectomy, partial ??? Rotator cuff repair Left 2009 ??? Septoplasty tonsils and upper palate reshaping ??? Endometrial ablation ??? Cholecystectomy ??? Tubal ligation ??? Colposcopy 07/30/13 ??? Thyroidectomy, partial 02/09 Outpatient Prescriptions Marked as Taking for the 02/18/15 encounter (Office Visit) with Abundio Griffith MD Medication Sig Dispense Refill ??? lamoTRIgine (LAMICTAL) 100 mg Tablet TAKE 1 TABLET BY MOUTH THREE TIMES DAILY 90 tablet 2 ??? lithium 300 mg Capsule Take 1 capsule by mouth nightly. 30 capsule 2 ??? hydrOXYzine (ATARAX) 25 mg Tablet Take 1 tablet by mouth nightly. 30 tablet 1 ??? norgestimate-ethinyl estradiol (SPRINTEC, 28,) 0.25-35 mg-mcg Tablet Take 1 tablet by mouth daily. 28 tablet 12 ??? cetirizine (ZYRTEC) 10 mg Tablet Take 10 mg by mouth 2 times daily. ??? mometasone (NASONEX) 50 mcg/actuation [place], Non-Aerosol 2 sprays by Nasal route 2 times daily.17 g 5 ??? EPINEPHrine (EPIPEN) 0.3 mg/0.3 mL (1:1,000) Auto-Injector Inject 0.3 mLs into the muscle once as needed. 1 each 1 ??? meloxicam (MOBIC) 15 mg Tablet TAKE 1 TABLET BY MOUTH DAILY 30 tablet 3 ??? diphenhydrAMINE (BENADRYL) 25 mg capsule Take 25-50 mg by mouth as needed. Allergies Allergen Reactions ??? Abilify [Aripiprazole] Other (See Comments) hallucinations ??? Morphine Sulfate Nausea And Vomiting ??? Oxycodone-Acetaminophen Other (See Comments) rapid heart rate ??? Amitriptyline Hcl ??? Hydrocodone ??? Imipramine ??? Oxycodone Hcl ??? Soy History Social History ??? Marital Status: Spouse Name: N/A Number of Children: N/A ??? Years of Education: N/A Occupational History ??? Not on file. Social History Main Topics ??? Smoking status: Never Smoker ??? Smokeless tobacco: Never Used ??? Alcohol Use: No ??? Drug Use: No ??? Sexual Activity: Not on file Other Topics Concern ??? 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 Tobacco none ETOH 1/month Rec drugs none Caffeine 2/day Exercise walk daily Diet works on healthy choices portions Outside medical records reviewed: n/a Results for orders placed or performed in visit on 02/12/15 POCT urine dipstick Result Value Ref Range POC Sp [place] 1.015 1.002 - 1.030 POC pH, UA 6 5.0 - 8.5 POC Leuk, UA negative Negative - Negative POC Nitrite, UA negative Negative - Negative POC Protein, UA negative Negative - Negative mg/dL POC Glucose, UA normal Normal - Normal mg/dL POC Ketone, UA negative Negative - Negative POC Urobil, UA normal 0.2 - 1.0 mg/dL POC Bili, UA negative Negative - Negative POC Blood, UA negative Negative - Negative oscar/uL Bladder Scanner Result Value Ref Range Bladder Scan (mL) 45 mL OBJECTIVE: BP 128/80 mmHg Pulse 96 Ht 165.7 cm (5' 5.25) Wt LMP 10/13/2014 General: normal appearing female, pleasant mood, normal speech Skin: skin of abdomen/pelvis normal Pelvic: Cough stress test: Negative in both supine and standing position (voided last ~ 1.5 hours prior to exam) External Genitalia: Vulva, Mcdowell's and Bartholin glands normal, urethra without tenderness or mass Vagina: Hypermobility at the anterior vagina. Cervix: normal Bimanual (uterus/adnexa): no masses, non-tender Rectovaginal: Deferred Impression: Ms. Bernal is a .44 y.o. woman with: ?? Mixed urinary incontinence. Recommendations: I reviewed the anatomy and physiology of urinary incontinence. We discussed options for management including: Continued observation, pelvic floor exercises (supervised or unsupervised), weight loss, trial of medication for urge; trial of a pessary or Poise Impressa insert for stress and/or surgery. Based on the patients expressed goals for management I have recommended the following: ?? Complete the 3 day diary and mail back to us. ?? Start the oxybutynin daily and reassess after 6 weeks. We reviewed that it can take 4 weeks to have full effects for anticholinergic agents, so we would advise giving the medication that duration to work before adjusting dosing or changing course. ?? If she has stress predominant symptoms, a sling could be considered, but we reviewed it would not treat the urge part. We reviewed that we would need to document stress incontinence with a full bladder cough stress test, possibly with urodynamic testing. I spent 30 minutes total with the patient, with 20 minutes of the time spent [id number] in discussing her diagnosis and reviewing options for treatment. (x) ACOG or other informational pamphlets given to patient ABUNDIO GRIFFITH MD Division of Female Pelvic Medicine/Reconstructive Surgery CC: THANIA ALVARADO APRN documented in this encounter Plan of Treatment Not on file documented as of this encounter Visit Diagnoses Diagnosis Mixed stress and urge urinary incontinence Mixed incontinence urge and stress (male)(female) documented in this encounter
--- OUTSIDE RECORDS SUMMARY | 2023-10-04 01:08 | XMS_ITS | Encounter Summary ---
[place] [address] Care Team Providers Care Vending Enterprises Supervisor Name Role Phone Unavailable Primary Care Provider Unavailabl e Encounter Details Date Type Department Care Team ([facility] st Contact Info) Description 06/10/2015 1:30 PM EDT Office Visit [facility] [place] [address] [place] [phone] Gail Anguiano, WAREHOUSE TECHNICIAN [address] [place] [address] Social History Tobacco Use Types Packs/Day Years [...]
--- OUTSIDE RECORDS SUMMARY | 2023-10-04 01:08 | XMS_ITS | Encounter Summary ---
Author Organization [facility] [place] [address] Care Team Providers Care Frame Stylist Name Role Phone Unavailable Primary Care Provider Unavailabl e Reason for Visit * Reason Comments Medication Refill Encounter Details Date Type Department Care Team (Late st Contact Info) Description 02/04/2015 Refill Psychiatry and [place] [address] Cody Patton MD [facility] [place] [address] [place] [address] Social History Tobacco Use Types Packs/Day Years [...]
--- OUTSIDE RECORDS SUMMARY | 2023-10-04 01:08 | XMS_ITS | Encounter Summary ---
Author [facility] [place] [address] Care Team Providers Care Printing Agent Name Role Phone Unavailable Primary Care Provider Unavailabl e Reason for Visit * Reason Onset Date Comments Follow-up 05/25/2015 Encounter Details Date Type Department Care Team (Late st Contact Info) Description 05/25/2015 Telephone Obstetrics [place] [phone] Tram Moeller, RN Follow-up Social History Tobacco [...] Telephone Encounter - Tram Moeller, RN - 05/25/2015 3:00 PM EDT Prior auth approved for Myretriq 25 mg for 12 months. Informed pt to check BP 2 to 3 times a week for 2 weeks. Will call pt in 2 weeks to check on symptoms and BP results. Pt does know if BP increases to call clinic sooner. documented in this encounter Plan of Treatment Not on file documented as of this encounter Visit Diagnoses Not on filedocumented in this encounter
--- OUTSIDE RECORDS SUMMARY | 2023-10-04 01:08 | XMS_ITS | Encounter Summary ---
Author Organization [facility] [place] [address] Care Team Providers Care Call Center Coordinator Name Role Phone Unavailable Primary Care Provider Unavailabl e Reason for Visit * Reason Comments Establish Care Stress Urinary Incontinence Encounter Details Date Type Department Care Team (Late st Contact Info) Description 02/12/2015 8:00 AM EST Office Visit Obstetrics [place] [address] Yolande Mayer APRN [facility] OBSTETRICS [place] [address] Mixed incontinence Social History Tobacco Use Types Packs/Day [...] Sign Reading Time Taken Comments Blood Pressure 102/66 02/12/2015 8:04 AM EST Pulse - - Temperature - - Respiratory Rate - - Oxygen Saturation - - Inhaled Oxygen Concentration - - Weight - - Height 165.1 cm (5' 5) 02/12/2015 8:04 AM EST Body Mass Index - - documented in this encounter Progress Notes * Yolande Mayer APRN - 02/12/2015 8:09 AM EST Female Pelvic Medicine and Reconstructive Surgery @ [facility] Patient Name: Emilee Bernla Patient Primary Care Provider: THANIA ALVARADO Patient [...] Stress incontinence, female N39.3 Chief Complaint: Mixed incontinence, equally bothersome History of Present Illness: Ms. Bernal is a 44 y.o. old para 3 woman, seen at the kind request of Dina Sommers. She presents for evaluation and assessment of over 3 years, getting worse over the last 6 months duration. Goals for this visit 1. Help with incontinence Bladder irritants: Caffeine intake: 3 cups of coffee in the morning Cigarette smoking (packs, time, if quit when): no Alcohol: no Bladder Function Urinary incontinence: yes No. episodes: daily Pad use (per day): Poise or maxi pad Pad type: 2-3/day Daytime voids: 10-20 Nocturia: 1- to many Previous urinary incontinence treatment (Medical/Behavioral/Surgical): PT before at [facility] symptoms x Urinary frequency x Nocturia x Stress urinary incontinence - leakage with exertion, cough/sneeze x Urge urinary incontinence - leakage preceded immediately [...] treatment for POP (physical therapy, pessary, surgery)?: n/a Bowel Function Fecal incontinence (yes/no): no Number of fecal incontinent episodes (day/week): none Number of bowel movements (day/week): Every other day- varies Defecatory Dysfunction: Symptom Presence Symptom Presence NONE Incomplete Emptying Straining Infrequent stools (<3 week) Splinting Abdominal discomfort Loose stools Defecatory urgency Hard stools Other IBS Sexual Function Active?: no Pain with intercourse?: no If yes, insertional/Deep? n/a Desire to retain sexual function? yes Past Medical History Diagnosis Date ??? Lower back injury 02/05/2013 ??? Bipolar disorder ??? PTSD (post-traumatic stress disorder) ??? Fibromyalgia ??? Environmental allergies with anaphylaxis ??? Degenerative disc disease ??? Allergic state ??? Depression ??? Gestational diabetes ??? Anxiety ??? GERD (gastroesophageal reflux disease) ??? Graves disease ??? Lyme disease ??? Asthma ??? Fibrocystic breast disease ??? Sleep apnea ??? Hypothyroidism Past Surgical History Procedure Laterality Date ??? Mastectomy, partial ??? Rotator cuff repair Left 2009 ??? Septoplasty tonsils and upper palate reshaping ??? Endometrial ablation ??? Cholecystectomy ??? Tubal ligation ??? Colposcopy 07/30/13 ??? Thyroidectomy, partial 02/09 No outpatient prescriptions have been marked as taking for the 02/12/15 encounter (Office Visit) with Yolande Mayer APRN. Allergies Allergen Reactions ??? Abilify [Aripiprazole] Other [...] daily Diet works on healthy choices portions No family history on file. Family history: denies history of gynecologic cancer - unclear hx ROS: Review of all other systems negative except for those mentioned above or indicated below: System Symptom Presence Constitutional Weight Loss Weight gain X 10 lbs over the last year Eyes History of glaucoma ENT/Mouth Mouth sores/Dry mouth X dry mouth Cardiovascular Chest pain Leg swelling Respiratory Wheezing SOB GI Nausea/vomiting Nausea r/t IBS? Abdominal pain IBS? Skin/Breast Breast masses Rash/ulcer Musculoskeletal Muscle weakness Trouble Walking Neurological Dizziness/falling Dizzy lately Numbness Psychiatric Depression x Anxiety x Endocrine Abnormal thirst x Hot flashes x Hematologic Frequent bruising History of blood transfusions denies Blood clots (DVT / PE) denies Prior problems w/ anesthesia denies Outside medical records reviewed: no Data reviewed (images/urodynamic studies): To further delineate patient's urinary symptoms, a urinedip test and postvoid residual via bladder scanner were obtained. Results for orders placed or performed in visit on 02/12/15 POCT urine dipstick Result Value Ref Range POC Sp Ware 1.015 1.002 - 1.030 POC pH, UA [...] Range Bladder Scan (mL) 45 mL OBJECTIVE: Ht 165.1 cm (5' 5) BP 102/66 mmHg Ht 165.1 cm (5' 5) Wt LMP 10/13/2014 General: normal appearing female, pleasant mood, normal speech Skin: skin of abdomen/pelvis normal Musculoskeletal: levator ani tone (0-5): 3, levator ani contraction (0-5): 2, 0 levator tenderness;lower extremity motor 5/5 bilaterally Pelvic: Cough stress test (empty supine): negative External Genitalia: Vulva, Mccurtain's and Bartholin glands normal, urethra without tenderness or mass Vagina: With Valsalva, the anterior vaginal wall comes 2 cm above the hymen, the posterior vagina wall comes 2 cm above the hymen, and the cervix/apex comes 7 cm above the hymen Atrophic epithelium (yes/no)?: no Discharge?: no Cervix: normal Bimanual (uterus/adnexa): normal Rectovaginal: Enterocele: no Rectocele: small Anal sphincter: POP Q Measurements: Aa -2 Ba -2 C -7 GH 3/4 PB 2.5/3 TVL 10 Ap -2 Bp -2 D -9 Impression: Ms. Bernal is a .44 y.o. woman with: ?? Mixed incontinence, equally bothersome. Recommendations: I reviewed the anatomy and physiology of bladder floor . We discussed options for management including: Continued observation, pelvic floor exercises (supervised or unsupervised), pessary and/or surgery. Based on the patients expressed goals for management I have recommended the following: For her overactive bladder: ?? We discussed conservative treatments for overactive bladder include dietary changes, decreased caffeine intake, weight loss, timed voids, and urge suppression strategies. We also discussed pelvic floor muscles exercises (Kegel exercises). Written information was given. If treatment goals are notmet with lifestyle and behavioral changes, medications may be considered. For her stress urinary incontinence We discussed the options of expectant management, pelvic floor muscle exercises, pelvic floor physical therapy, and surgery for treatment of stress urinary incontinence. We also discussed the use of a large tampon with exercise or an incontinence pessary or OTC product by Poise- to reduce urine leakage. We discussed the surgery for stress urinary incontinence would involve a sling being placed atthe level of the midurethra with permanent mesh material. Three day bladder diary given. She is to fill this out before starting medications- trial of myrbetriq 25 mg daily for first month, if tolerating to increase to 50 mg daily after one month if her PVRis ok and if she is tolerating the side effects ok. Follow up in one month with me. Follow up with urogyn surgeon to discuss mid urethral sling I spent 60 minutes total with the patient, with 50 minutes of the time spent [id number] in discussing her diagnosis and reviewing options for treatment. (x) ACOG or other informational pamphlets given to patient YOLANDE MAYER APRN Division of Female Pelvic Medicine/Reconstructive Surgery CC: THANIA ALVARADO documented in this encounter Plan of Treatment Not on file documented as of this encounter Procedures Procedure Name Priority Date/Time Associated Diagnosis Comments BLADDER SCANNER Routine 02/12/2015 Mixed incontinence POCT URINE DIPSTICK Routine 02/12/2015 Mixed incontinence documented in this encounter Results * Bladder Scanner (02/12/2015) Bladder Scan (mL) 45 mL Abundio Griffith MD URO PROC W/O RFL ORD ERABLES * POCT urine dipstick (02/12/2015) POC Sp Ware 1.015 1.002 - 1.030 POC pH, UA [...] Blood, UA negative Negative - Negative oscar/uL Abundio Griffith MD POINT OF CARE TEST O RDERABLES documented in this encounter Visit Diagnoses Diagnosis Mixed incontinence Mixed incontinence urge and stress (male)(female) documented in this encounter
--- OUTSIDE RECORDS SUMMARY | 2023-10-04 01:08 | XMS_ITS | Encounter Summary ---
Author Organization [facility] Address [facility] [place] [address] Care Team Providers Care Crm Marketing Specialist Name Role Phone Dina Diaz Primary Care Provider + Reason for Visit * Reason Comments Medication Refill Encounter Details Date Type Department Care Team (Late st Contact Info) Description 02/10/2015 Refill Psychiatry [place] [address] Cody Patton MD [facility] [place] [address] Social History Tobacco Use Types Packs/Day Years [...] on filedocumented in this encounter Care Teams Crm Marketing Specialist Relationship Specialty Start Date End Date Dina Diaz PA [address] [place] [phone] PCP - General Internal Medicine 05/26/20 documented as of this encounter
--- OUTSIDE RECORDS SUMMARY | 2023-10-04 01:08 | XMS_ITS | Encounter Summary ---
Author Organization [facility] [place] [address] Care Team Providers Care Community Health Consultant Name Role Phone Unavailable Primary Care Provider Unavailabl e Reason for Visit * Reason Onset Date Comments Prior Authorization 04/30/2015 Encounter Details Date Type Department Care Team (Late st Contact Info) Description 04/30/2015 Telephone Obstetrics [place] [phone] Gary Bertrand RN Prior Authorization Social History Tobacco Use Types Packs/Day Years [...] encounter Miscellaneous Notes * Telephone Encounter - Gary Bertrand RN - 05/01/2015 1:20 PM EST Left message for pt that her insurance requires that she try another medication for overactive bladder. Dr. Matias suggested Trospium 20 mg BID. Asked that pt call back if she had further questions but that trospium would be sent to her pharmacy. * Telephone Encounter - Gary Bertrand RN - 05/01/2015 10:05 AM EST Called pt who stated that despite the oxybutynin 20 mg ER, she continues to have urinary frequency by voiding once or twice per hour, every hour. Called [facility] insurance and the PA for myrbetriq 25 mg daily was denied on 04/25/15 because the pt has to try 2 different formulary medications first besides oxybutynin including: Flavoxate, tolterodine IR and ER, trospium IR and ER. Will route to Dr. Matias. * Telephone Encounter - Gary Bertrand RN - 04/30/2015 5:18 PM EST Left message on pt's phone to call back clinic regarding any improvement in the urge incontinence since she was started on oxybutynin 20 mg ER from 04/09/[address] Matias. * Telephone Encounter - Gary Bertrand RN - 04/30/2015 5:14 PM EST ----- Message from Tram Moeller RN sent at 04/09/2015 3:22 PM EST ----- ----- Message ----- From: Abundio Griffith MD Sent: 04/09/2015 2:44 PM To: Tram Moeller RN Please call in ~ 3 weeks to see how she is doing for bladder function on increased oxybutynin. documented in this encounter Plan of Treatment Not on file documented as of this encounter Visit Diagnoses Not on filedocumented in this encounter
--- OUTSIDE RECORDS SUMMARY | 2023-10-04 01:08 | XMS_ITS | Encounter Summary ---
[place] [address] Care Team Providers Care Nurse Tech Name Role Phone Unavailable Primary Care Provider Unavailabl e Encounter Details Date Type Department Care Team (Late st Contact Info) Description 06/10/2015 Abstract [facility] Information Services [address] [place] [phone] Provider, His Henrique MD Social History Tobacco [...] Procedure Name Priority Date/Time Associated Diagnosis Comments EXTERNAL PAP SMEAR RESULT PANEL Routine 06/10/2015 8:43 AM EDT documented in this encounter Results * (ABNORMAL) External Pap Smear (06/10/2015 8:43 AM EDT) HPV Interpretation NOT DETECTED(Exte rnal Lab) NOT DETECTED [facility] RESULT CONVERSION Comment: Sourced from Angela Duenas Conversion External PAP Smear 06/10/2015 8:43:00 AM; See legacy [employer] system for full report([facility] Lab) [facility] RESULT CONVERSION Comment: [...] His Henrique Provider EXTERNAL LAB ORDER JASPAL Performing Organization Address City/State/[facility] Co de Phone Number [facility] RESULT CONVERSION documented in this encounter Visit Diagnoses Not on filedocumented in this encounter
--- OUTSIDE RECORDS SUMMARY | 2023-10-04 01:08 | XMS_ITS | Encounter Summary ---
Author Organization [facility] [place] [address] Care Team Providers Care Delicatessen Goods Stock Clerk Name Role Phone Unavailable Primary Care Provider Unavailabl e Encounter Details Date Type Department Care Team (Late st Contact Info) Description 02/09/2015 10:00 AM EST Office Visit Psychiatry [place] [phone] Cody Patton MD [facility] [address] Bipolar 2 disorder Social History Tobacco Use Types Packs/Day Years [...] Sign Reading Time Taken Comments Blood Pressure 114/60 02/09/2015 10:21 AM EST Pulse 114 02/09/2015 10:21 AM EST Temperature - - Respiratory Rate - - Oxygen Saturation - - Inhaled Oxygen Concentration - - Weight - - Height 165.1 cm (5' 5) 02/09/2015 10:21 AM EST Body Mass Index - - documented in this encounter Progress Notes * Kylee Murray MD - 02/14/2015 10:53 PM EST PSYCHIATRY TEACHING PHYSICIAN INVOLVEMENT Location: Office Attending Physician: Kylee Murray MD Resident name: Cody Patton MD I saw and evaluated the patient with the above named resident/ See their note for details. I reviewed the patient's history during the visit and I agree with the details as written. My exam confirms the resident's findings. The assessment and plan were formulated in discussion with me and I agree with them as documented. Major issues addressed/discussed: The patient reported an increase in irritability and demonstratedit during the interview. She arrived late and announced that she would no longer complete questionaires, nor would she agree to being weighed. She had been trying to inquire about therapy at [facility] and was upset that they were not returning her calls. She had stopped both paroxetine and lithium, but she continued on lamotrigine. We agreed with stopping paroxetine since it's possible that this medication has been activating. Following additional discussion of the risks and benefits of lithium, she agreed to try a lower dose (300 mg). She has a chronic sleep problem, and a referral to the sleep clinic for reassessment is in process. Additional comments: none * Cody Patton MD - 02/09/2015 10:17 AM EST ESTABLISHED ADULT PATIENT OFFICE VISIT NOTE Time Spent: 30 minutes Attendee(s): Patient This patient was seen with Dr. Murray. See her note for confirmatory and/or revisionary documentation. HISTORY Chief Complaint: Emilee Bernal is a 44 y.o. Female with bipolar II and PTSD who presents with mood instability, mainly irritable and angry with prominent depressive features. HPI: () The patient arrives 20 minutes late for a 15 minute appointment. We discussed her tardiness and theneed to be on time in the future. Patient has refused to take questionnaires, and refused to give us a weight. We discussed that thisis helpful information for us to know. She also does not fully share why she wanted to stop lithiumwhen she finds it helpful, other than identifying, Side effects. She called [facility] twice and left a message, they called back once, but she gave up on trying to connect with a therapist. We encouraged that she show up in person to get an intake. She also inquired about psychiatry at [facility], which is closer and likely more convenient for her. Things are horrible, paroxetine was not doing anything for my depression. Not being on lithium really sucks, but I don't want to be on it. There are a lot of reasons not to be on it. She finds thathe medications make her feel irritable, is cognitively dulling, causes stuttering, feeling tired all the time, and she is worried about weight gain. Now that off of paroxetine and lithium she is thinking more clearly. However, she feels that my mood is all over the place, super depressed or reallyangry. I'm not happy. She has a sleep study arranged for early February. The patient reports that the main symptoms that are bothering her are low mood and anger, but sleep is also a concern. Patient gets about 6 hours interrupted night sleep. Patient is unsure if she still snores, she believes that she does. She feels groggy in the morning. We discussed that we do not want to increase the medication to make her feel more groggy, but that she is probably not getting quality sleep and so is probably not feeling well rested due to this fact. No SI/HI. Quality: Severity: Duration: Timing: Context: Modifying factors: Associated S&S: Current Medications: Current Outpatient Prescriptions Medication Sig Dispense Refill ??? lithium 300 mg Capsule Take 1 capsule by mouth nightly. 30 capsule 2 ??? traZODone (DESYREL) 100 mg Tablet Take 1 tablet by mouth nightly. 30 tablet 1 ??? hydrOXYzine (ATARAX) 25 mg Tablet Take 1 tablet by mouth nightly. 30 tablet 1 ??? norgestimate-ethinyl estradiol (SPRINTEC, 28,) 0.25-35 mg-mcg Tablet Take 1 tablet by mouth daily. 28 tablet 12 ??? cetirizine (ZYRTEC) 10 mg Tablet Take 10 mg by mouth 2 times daily. ??? mometasone (NASONEX) 50 mcg/actuation Weld, Non-Aerosol 2 sprays by Nasal route 2 times daily.17 g 5 ??? EPINEPHrine (EPIPEN) 0.3 mg/0.3 mL (1:1,000) Auto-Injector Inject 0.3 mLs into the muscle once as needed. 1 each 1 ??? lamoTRIgine (LAMICTAL) 100 mg Tablet Take 1 tablet by mouth 3 times daily. 90 tablet 2 ??? meloxicam (MOBIC) 15 mg Tablet TAKE 1 TABLET BY MOUTH DAILY 30 tablet 3 ??? diphenhydrAMINE (BENADRYL) 25 mg capsule Take 25-50 mg by mouth as needed. No current facility-administered medications for this visit. Pertinent Medication Side Effects: irritability Review of Systems: (02/28/09) Constitutional: Eyes: ENT: Cardiovascular: No CP Respiratory: No SOB GI: : Musculoskeletal: Integumentary: Neurological: Psychiatric: See HPI above Endocrine: Hematologic/Lymphatic: Allergic/Immunological: See reviewed allergies PFSH: () Social History: Patient still working at [employer] [08/05/13 bullets (incl VS)] Constitutional System ? Vital Signs: Blood pressure 114/60, pulse 114, height 165.1 cm (5' 5). Patient declines to allow weight to be taken. Musculoskeletal System ? Muscle Strength/Tone (note atrophy, abnormal movements): ? Gait and Station: Psychiatric System ? General Appearance/Behavior: age appropriate female ? Speech: somewhat halting and odd ? Thought Process: linear ? Associations: tight ? Abnormal Thoughts and Perceptions / Thought Content: Homicidality / Violent Thoughts: no Suicidality: no Hallucinations: no Delusions: no Obsessions: no ? Judgment and Insight: good, good ? Mood & Affect: Irritable and mood congruent ? Orientation: fully ? Attention/Concentration: appropriate ? Memory: Recent and remote intact ? Language: intact ? Fund of Knowledge: good MEDICAL DECISION MAKING ASSESSMENT: Emilee Bernal is a 44 y.o. Female with bipolar 2 and PTSD who presents with having stopped medications and feeling more irritable able depressed. She has been mostly cooperative, but has withheld some information from us. She seems much worse than previously. We discussed that we feelthat DBT through [facility] would be helpful for her and encouraged her to present to their clinic in person. We also discussed that since lithium was helpful, that we would like to resume a lower dose of 300 mg per day as previously to which she agrees. We encouraged her to have herB12 and thyroid checked by her PCP. We agree with stopping the paroxetine as it may be too stimulating for her. PLAN: Check B12 Check Thyroid Labs per PCP Get into DBT therapy Crellin 300 mg Stop paroxetine Patient Instruction/Education provided: Patient provided verbal instructions regarding treatment. Patient understands the plan? Yes documented in this encounter Plan of Treatment Not on file documented as of this encounter Visit Diagnoses Diagnosis Bipolar 2 disorder Other bipolar disorders documented in this encounter
--- OUTSIDE RECORDS SUMMARY | 2023-10-04 01:08 | XMS_ITS | Encounter Summary ---
[place] [address] Care Team Providers Care Dispute Resolution Specialist Name Role Phone Unavailable Primary Care Provider Unavailabl e Encounter Details Date Type Department Care Team (Late st Contact Info) Description 02/17/2015 Orders Only Obstetrics [place] [phone] Tram Moeller, RN Urge incontinence Social History Tobacco Use Types Packs/Day [...] as of this encounter Progress Notes * Tram Moeller RN - 02/17/2015 2:25 PM EST Myrbetriq 25 mg not covered by insurance. Oxybutynin 5 mg XL per Rosa Allan NP. documented in this encounter Plan of Treatment Not on file documented as of this encounter Visit Diagnoses Diagnosis Urge incontinence documented in this encounter
--- OUTSIDE RECORDS SUMMARY | 2023-10-04 01:08 | XMS_ITS | Encounter Summary ---
Author Organization [facility] Address [facility] [place] [address] Care Team Providers Care Outfitter Cabin Name Role Phone Unavailable Primary Care Provider Unavailabl e Reason for Referral * Consultation (Routine) - Closed Specialty Diagnoses / Procedures Referred By Contac t Referred To Contact Sleep Center Diagnoses YAHIR (obstructive sleep apnea) Alexis Sanabria MD [facility] [place] [address] [facility] Sleep Medicine [address] [place] [id number] Referral ID Status Reason Start Date Expiration Date V isits Requested Visits Authorized [id number] Closed Test Only 03/02/2015 03/01/2016 1 1 Encounter Details Date Type Department Care Team (Late st Contact Info) Description 03/02/2015 Orders Only Sleep Center at [address] [phone] Alexis Sanabria MD [facility] [place] [address] YAHIR (obstructive sleep apnea) Social [...] as of this encounter Progress Notes * Alexis Sanabria MD - 03/02/2015 9:46 AM EST Polysomnogram Order Form Room # Technologist Assignment: To be read by on PSG Patient Information: Date of Study: Name: Emilee Bernal (44 y.o. female) : 1970 Ht Readings from Last 1 Encounters: 03/02/15 165.1 cm (5' 5) Wt Readings from Last 1 Encounters: 01/08/15 80.287 kg (177 lb) Normal Sleep Hours: 10 PM to 6 AM Arrival Time: Physical/Mobility Limitations: No Cognitive Limitations: No Requires Male Tech: No Requires Female Tech: No Requires 1:1 Care: No Requires Parent/Caregiver: No Home Oxygen Useage: No At Home, Sleeps in a: Bed PSG Indications: History of mild YAHIR, s/p UPPP in 2006, ongoing symptoms - reassess Other Medical Conditions: Mood disorder, fibromyalgia PSG Orders Type of Study: diagnostic, split for AHI of 30 (AND [facility] AHI of 10) *Initiate CPAP/BPAP/oxygen per previously determined protocols unless otherwise specified. documented in this encounter Plan of Treatment Scheduled Referrals Name Type Priority Associated Diagnoses Orde r Schedule Referral to Sleep Disorders Center Outpatient Referral Routine YAHIR (obstructive sleep apnea) Ordered: 03/02/2015 documented as of this encounter Visit Diagnoses Diagnosis YAHIR (obstructive sleep apnea) Obstructive sleep apnea (adult) (pediatric) documented in this encounter
--- OUTSIDE RECORDS SUMMARY | 2023-10-04 01:08 | XMS_ITS | Encounter Summary ---
Author Organization [facility] [place] [address] Care Team Providers Care Pensionholder Information Clerk Name Role Phone Unavailable Primary Care Provider Unavailabl e Reason for Visit * Reason Comments Medication Refill Encounter Details Date Type Department Care Team (Late st Contact Info) Description 03/08/2015 [address] Medicine [facility] [address] [place] [address] Tiff Peng PA [facility] [place] [address] Social History Tobacco Use Types Packs/Day Years [...] encounter Miscellaneous Notes * Telephone Encounter - Grady Connell MA - 03/09/2015 8:24 AM EST NOV-05/07/15 CONY-03/04/15 [facility] documented in this encounter Plan of Treatment Not on file documented as of this encounter Visit Diagnoses Not on filedocumented in this encounter
--- OUTSIDE RECORDS SUMMARY | 2023-10-04 01:08 | XMS_ITS | Encounter Summary ---
Author Organization [facility] Address [facility] [place] [address] Care Team Providers Care Floral Decorator Name Role Phone Unavailable Primary Care Provider Unavailabl e Encounter Details Date Type Department Care Team (Late st Contact Info) Description 04/20/2015 Telephone Psychiatry [place] [phone] Cody Patton MD [facility] [address] Social History Tobacco Use Types Packs/Day Years [...] encounter Miscellaneous Notes * Telephone Encounter - Cody Patton MD - 04/20/2015 4:30 PM EST Received email: Wa Dr. Patton ? I am writing to let you know that I was unable to see Dr. Leos last week because [facility] [employer] does not have a signed contract with [facility]. ??I have talked with [employer] services and I would have to pay corona for the visit and no financial institution vice president is offered because I have commercial health insurance. ??This seems very unethical to charge people who have Medicaid as their primary insurance to pay for the visits. ??I'm on Medicaid for a reason, I can not afford private health insurance. ??I have been told by the wonderful schedulers in your department that in July the psychiatry department will become part of [facility] and my visits should be covered after then. ??I will be making an appointment for late July/early August to see Dr. Leos . Bradyt over about that. ? I writing to let you know that I am very depressed right now and can't seem to shake it. ??I am taking the medications prescribed but am still experiencing depression. ??No, I am not suicidal justreally depressed. ??Any suggestions? I am also writing to request that refills for my current medications be sent to my pharmacy. ??Is this something that you would be willing to do for me, or should I contact my PCP for this? Thank you for your help in this matter. ??Have a most pleasant day. ? Emilee Bernal Replied as follows: Julien Hebert, I'm sorry to hear that you're not feeling well and that on top of it all you've got the bureaucracyof our medical system making it worse. Regarding the bureaucracy, I've spoken with our delinquency prevention officer to try to sort out what's going on. He said that your Medicaid had been listed as . Then he found that [facility] does have you with the [employer] that is one of the companies working with [place] Medicaid. He said that we don't have an active contract with them yet, but it is expected to be in place soon and he emailed to find out when it will be active. However, since you are already an established patient of the clinic he believes that there is a form that he can have someone fill out to have you be given an exemption so that you can continue being seen here even while the transition with the new Medicaid company is still in process. But the person who fills out those forms will not be back in the office until Wednesday. Once the delinquency prevention officer is able to speak to this form [id number], then he should know whether you can be seen sooner (which he believes is the case, but is not 100% sure of that) or later (once the contract with [employer] is active). One way or the other, it's my understanding that the schedulers should contact you and schedule an appointment to see Dr. Leos once they know when they can schedule you. Regarding your depression, I can't make major changes without seeing you in person. However, you did seem to have a good response to the lithium previously. You had been on the dose of 450 mg and then discontinued all of your medications. Dr. Murray suggested at the visit following that that we restart the lithium, but a dose of 300 mg so it would be more well tolerated. I can therefore increase your dose back to 450 mg so we can see if that helps with the depression. I am also happy to call in arefill of the prescriptions. We have those medications as: Lamotrigine 100 mg tablet, three times daily Trazodone 100 mg nightly Hydroxyzine 25 mg nightly Zihlman 300 mg nightly Please be advised, if you have been off of the lamotrigine for a few days, we will need to restart the medication titration from the beginning to gradually increase the dose. The beginning dose is 25mg. If you take the medication at full dose and have not been taking it consistently there is the risk of a dangerous rash known as Dowling-Clement Syndrome which can be life threatening and would require emergency attention. I am calling in refills for all of these medications for three months, except the lithium. I will wait for you to tell me whether you would like 300 mg for the higher 450 mg lithium before I call in that refill. Please let me know what you would like to do in that regard. As always, if you have any thoughts about hurting yourself or anyone else please call 911, go to the nearest emergency department, or call the crisis line at . Kind Regards, Cody Patton MD documented in this encounter Plan of Treatment Not on file documented as of this encounter Visit Diagnoses Not on filedocumented in this encounter
--- OUTSIDE RECORDS SUMMARY | 2023-10-04 01:08 | XMS_ITS | Encounter Summary ---
Author Organization [facility] [place] [address] Care Team Providers Care C Winforms Developer Name Role Phone Unavailable Primary Care Provider Unavailabl e Reason for Visit * Reason Comments Establish Care Encounter Details Date Type Department Care Team (Late st Contact Info) Description 01/08/2015 1:45 PM EST Office Visit Obstetrics [place] [address] Dina Sommers QUALIFIED CRAFT WORKER ELECTRICIAN [facility] [place] [address] Perimenopause; Hematuria Social History Tobacco Use Types Packs/Day Years [...] Sign Reading Time Taken Comments Blood Pressure 108/58 01/08/2015 1:52 PM EST Pulse - - Temperature - - Respiratory Rate - - Oxygen Saturation - - Inhaled Oxygen Concentration - - Weight 80.3 kg (177 lb) 01/08/2015 1:52 PM EST Height 166.4 cm (5' 5.5) 01/08/2015 1:52 PM EST Body Mass Index 29.01 01/08/2015 1:52 PM EST documented in this encounter Progress Notes * Dina Sommers, QUALIFIED CRAFT WORKER ELECTRICIAN - 01/08/2015 3:27 PM EST Patient Active Problem List Diagnosis Code ??? [...] deficiency E55.9 ??? Stress incontinence, female N39.3 HPI: Emilee is a very pleasant 44 year old who comes to clinic today to establish care. She moved to [place] from [facility] in July and will no longer be followed by her LIME KILN AND RECAUSTICIZING OPERATOR at [place]. Her last well woman exam was July 2014. She has several LIME KILN AND RECAUSTICIZING OPERATOR concerns that she would like to address at this appointment. ?? + HPV. She had LGSIL pap in 2013 with Colposcopy performed, path results from colp are not available for review but she did not require further tx. She had repeat pap July 2014 and is HPV is stillpositive. She wants to know if there is anything I can do to clear the HPV ?? She is noting over last 6 months progressive vasomotor s/s. She is noting 3-4 hotflashes/day andoccasional night sweats. She is also that she is going 3-4 months between spotting/bleeding ?? Over last 6 months to year she is noting increased in mixed incontinence. Her PCP has recommended she see [facility] LIME KILN AND RECAUSTICIZING OPERATOR. She notes LILIYA with sneezing laughing, urgency and frequency. She saw physical therapist at [facility], she did not note improvement with physical therapy. She states she has had microscopic hematuria for years without cause being found. ?? Question family history of colon cancer, polyps, uterine cancer. She is somewhat unclear regarding family history as her mother is a poor historian. Records indicated that she had been referred togenetics but that did not happen, she states genetic testing was not covered by medicaid and she did not have testing or counseling. Emilee has had colonoscopy, she states a polyp was removed but itwas not worrisome and recommend to repeat colonoscopy in 5 years. 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 Menarche age 12 ?? Had endometrial ablation at approx age 29, she has had very light menstrual cycles since ablation. She has not had any vaginal bleeding or spotting since the summer ?? Last pap July 2014, results not available for review, she states it was normal with + HPV ?? Persistent microscopic hematuria ?? Tubal ligation ?? No hx STIs ?? No bleeding after intercourse ?? x 3 Past Surgical History Procedure Laterality Date ??? Mastectomy, partial ??? Rotator cuff repair Left 2009 ??? Septoplasty tonsils and upper palate reshaping ??? Endometrial ablation ??? Cholecystectomy ??? Tubal ligation ??? Colposcopy 07/30/13 ??? Thyroidectomy, partial 02/09 FAM HX: question of uterine cancer in mother, colon cancer MGM, aunt with colon polyps. She is unsure if this is accurate. Allergies Allergen Reactions ??? Abilify [Aripiprazole] Other (See Comments) hallucinations ??? Morphine Sulfate Nausea And Vomiting ??? Oxycodone-Acetaminophen Other (See Comments) rapid heart rate ??? Amitriptyline Hcl ??? Hydrocodone ??? Imipramine ??? Oxycodone Hcl ??? Soy Current Outpatient Prescriptions on File Prior to Visit Medication Sig Dispense Refill ??? hydrOXYzine (ATARAX) 25 mg Tablet Take 1 tablet by mouth nightly. 30 tablet 3 ??? lamoTRIgine (LAMICTAL) 100 mg Tablet Take 1 tablet by mouth 3 times daily. 90 tablet 2 ??? lithium (ESKALITH) 450 mg Tablet Sustained Release Take 1 tablet by mouth nightly. 30 tablet 2 ??? traZODone (DESYREL) 100 mg Tablet Take 1 tablet by mouth nightly. Try 50 mg nightly, then 75 mgnightly if needed, then 100 mg nightly if needed (increase over two weeks) 30 tablet 2 ??? PARoxetine (PAXIL) 20 mg Tablet Take 1 tablet by mouth nightly. 30 tablet 2 ??? meloxicam (MOBIC) 15 mg Tablet TAKE 1 TABLET BY MOUTH DAILY 30 tablet 3 ??? LORazepam (ATIVAN) 0.5 mg Tablet 0 ??? VITAMIN D 50,000 unit Capsule 0 ??? diphenhydrAMINE (BENADRYL) 25 mg capsule Take 25-50 mg by mouth as needed. ??? [DISCONTINUED] fexofenadine (PAULIE) 180 mg Tablet Take 1 tablet by mouth daily. 90 tablet 3 No current facility-administered medications on file prior to visit. History Social History ??? Marital Status: Spouse [...] daily Diet works on healthy choices portions O: Filed Vitals: 01/08/15 1352 BP: 108/58 Height: 166.4 cm (5' 5.5) Weight: 80.287 kg (177 lb) Exam deferred current IMPRESSION/Plan: i had a 30 minute discussion with Emilee in regards to all of her concerns. ?? High Risk HPV: Discussed prevalence of HR HPV, possibly ~80% or higher of sexually active women have been exposed. Discussed that it can take sometimes 2 years to resolve. Recommend co testing in July 2015. Asked to have her pap smear records forwarded to [facility] ?? Persistent microscopic Hematuria: refer to Uro Pmo Lead ?? Mixed incontinence: Reviewed bladder irritants, she has 2 cups coffee/day, no further caffiene, drinks primarily H20, no citrus juices, no tea. Failed PT, will refer to Dr. Hall for consultation ?? Vasomotor signs and symptoms: Reviewed perimenopausal transition with her. Discussed that symptoms to include vasomotor can begin 2-8 years before cessation of menses. Will check FSH to elucidate status. Discussed lifestyle alterations that may decrease hotflashes, exercise, avoidance of alcohol, meditation, yoga, layered clothing, avoidance of hot beverages. Discussed estrogen replacement such as low dose OCPs. Reviewed warning s/s, instructions for use. She would like to try mmwill prescribe Lo Loestrin ?? Recommend that she obtain clear family history from her maternal aunts regarding uterine cancer,polyps, colon cancer. Recommend [facility] once she has obtained full family history, to rule out Love Syndrome. documented in this encounter Miscellaneous Notes * Addendum Note - Dina Sommers APRN - 01/09/2015 12:26 PM ESTAddended by: DINA SOMMERS on: 01/09/2015 12:26 PM Modules accepted: Orders, Medications * Addendum Note - Dina Sommers APRN - 01/09/2015 9:05 AM ESTAddended by: DINA SOMMERS on: 01/09/2015 09:05 AM Modules accepted: Orders documented in this encounter Plan of Treatment Not on file documented as of this encounter Procedures Procedure Name Priority Date/Time Associated Diagnosis Comments FOLLICLE STIMULATING HORMONE Routine 01/08/2015 3:02 PM EST Perimenopause POCT URINE DIPSTICK Routine 01/08/2015 2 :00 PM EST Hematuria BLADDER SCAN Routine 01/08/2015 documented in this encounter Results * Follicle Stimulating Hormone (01/08/2015 3:02 PM EST) Pathologist [facility] Follicle Stimulating Hormone 11.8 mlU/ML [facility] Comment: Reference Ranges: Females: Follicular: ? 3.5-12.5 mIU/mL Ovulation: ?4.7-21.5 mIU/mL Luteal: ? 1.7-7.7 mIU/mL Postmenopausal: 25.8-134.8 mIU/mL Blood specimen (specimen) 01/08/2015 3:02 PM EST 01/08/2015 3:23 PM EST Narrative Resulting Agency Comment Spec In Lab Cat Rodriguez MD CHEMISTRY O RDERABLES KRIS GROSS * POCT urine dipstick (01/08/2015 2:00 PM EST) POC Sp Eagle 1.01 1.002 - 1.030 POC pH, UA 6 5.0 - 8.5 POC Leuk, UA neg Negative - Negative POC Nitrite, UA neg Negative - Negative POC Protein, UA neg Negative - Negative mg/dL POC Glucose, UA norm Normal - Normal mg/dL POC Ketone, UA neg Negative - Negative POC Blood, UA 250 Negative - Negative oscar/uL 01/08/2015 2:00 PM EST Debra Apple MD POINT OF CARE TEST ORDERABLES * Bladder scan (01/08/2015) Scan 23ml Debra Apple MD NURSING TREATMENT O RDERABLES - ONCE OR AT INTERVALS documented in this encounter Visit Diagnoses Diagnosis Perimenopause Symptomatic menopausal or female climacteric states Hematuria Hematuria, unspecified documented in this encounter
--- OUTSIDE RECORDS SUMMARY | 2023-10-04 01:08 | XMS_ITS | Encounter Summary ---
[place] [address] Care Team Providers Care Historical Interpreter Name Role Phone Unavailable Primary Care Provider Unavailabl e Encounter Details Date Type Department Care Team (Late st Contact Info) Description 03/26/2015 [place] [id number] Feli Segura, DO [address] [place] [address] Social History Tobacco Use Types Packs/Day Years [...] Name Priority Date/Time Associated Diagnosis Comments MAMMO SCREENING CAD AND GIL BILATERAL Routine 03/26/2015 10:04 AM EST documented in this encounter Results * Mammo Screen CAD and Gil Bilat (Generic) (03/26/2015 10:04 AM EST) Anatomical Region Laterality Modality Breast Bilateral Mammography 03/26/2015 10:0 4 AM EST Narrative 05/01/2015 11:38 AM EST External Results Rufina Duenas ADDENDED REPORT EXAMINATION: ??[facility] 8099 - GIL HD 3D/C SCREEN [...] ??The films were also reviewed with the [employer] Computer Aided Detection System (Version 10.0). IMPRESSION: [...] now have old films for comparison from [place], [place] and the scarring in the right breast appears to be stable and related to prior surgery. ??Hence, I would not recommend additional imaging at this point and this will revert to a Category 2 mammogram. ?? Routine yearly screening recommended. INTERPRETING PHYSICIAN:dexter RUIZ M.D. Apr 20 2015 ??4:08P ? TRANSCRIBED BY/DATE:dexter REINOSO ??on Apr 21 2015 ??7:09A ELECTRONICALLY AUTHORIZED BY: ? PREET RUIZ M.D. ? Mar ??2015 11:38A Procedure Note Preet Ruiz MD - 10/08/2016 External Results Rufina Duenas ADDENDED REPORT EXAMINATION: [facility] 8099 - GIL HD 3D/C SCREEN [...] reviewed. The filmswere also reviewed with the [employer] Computer Aided Detection System (Version 10.0). IMPRESSION: [...] now have old films for comparison from [place], [place] and the scarring in the right breast appears to be stable and related to prior surgery. Hence, I would not recommend additional imaging at this point and this will revert to a Category 2 mammogram. Routine yearly screening recommended. INTERPRETING PHYSICIAN:dexter RUIZ M.D. Apr 20 2015 4:08P TRANSCRIBED BY/DATE:dexter REINOSO on Apr 21 2015 7:09A ELECTRONICALLY AUTHORIZED BY: PREET RUIZ M.D. May 01 2015 11:38A Feli Segura DO IMG MAMMO ORDERABLE S documented in this encounter Visit Diagnoses Not on filedocumented in this encounter
--- OUTSIDE RECORDS SUMMARY | 2023-10-04 01:08 | XMS_ITS | Encounter Summary ---
[place] [address] Care Team Providers Care Grades 1 Thru 5 Teacher Name Role Phone Unavailable Primary Care Provider Unavailabl e Encounter Details Date Type Department Care Team (Late st Contact Info) Description 05/21/2015 Orders Only Obstetrics [place] [phone] Tram Moeller, RN Overactive bladder Social History Tobacco Use Types Packs/Day Years [...] as of this encounter Visit Diagnoses Diagnosis Overactive bladder Hypertonicity of bladder documented in this encounter
--- OUTSIDE RECORDS SUMMARY | 2023-10-04 01:08 | XMS_ITS | Encounter Summary ---
[place] [address] Care Team Providers Care Director Of Early Childhood Name Role Phone Unavailable Primary Care Provider Unavailabl e Encounter Details Date Type Department Care Team (Late st Contact Info) Description 06/11/2015 Abstract [facility] Information Services [address] [place] [address] JABARI Duenas [phone] Provider, His Henrique MD Social History Tobacco [...] Taken Comments Blood Pressure - - Pulse 113 06/11/2015 11:10 AM EDT Sourced from [facility] Conversion Temperature - - Respiratory Rate - - Oxygen Saturation - - Inhaled Oxygen Concentration - - Weight 78 kg (172 lb) 06/11/2015 11:10 AM EDT Sourced from [facility] [employer] [facility] Conversion Height - - Body Mass Index 28.4 06/10/2015 1:30 PM EDT documented in this encounter Plan of Treatment Not on file documented as of this encounter Visit Diagnoses Not on filedocumented in this encounter
--- OUTSIDE RECORDS SUMMARY | 2023-10-04 01:08 | XMS_ITS | Encounter Summary ---
[facility] [address] Care Team Providers Care Service Writer Advisor Name Role Phone Unavailable Primary Care Provider Unavailabl e Encounter Details Date Type Department Care Team (Late st Contact Info) Description 03/04/2015 [facility] Information Services [address] [place] [address] [place] [phone] Provider, His Henrique MD Social History Tobacco [...] Taken Comments Blood Pressure - - Pulse 89 03/04/2015 9:00 AM EST Sourced from [facility] Conversion Temperature - - Respiratory Rate - - Oxygen Saturation - - Inhaled Oxygen Concentration - - Weight - - Height 165.7 cm (5' 5.25) 03/04/2015 9 :00 AM EST Sourced from [facility] Body Mass Index - - documented in this encounter Plan of Treatment Not on file documented as of this encounter Procedures Procedure Name Priority Date/Time Associated Diagnosis Comments CMP ([facility] CONVERSION) Routine 03/04/2015 10:15 AM EST TSH CASCADE Routine 03/04/2015 10:15 AM EST CBC (WITH DIFF) Routine 03/04/2015 10:15 AM EST documented in this encounter Results * (ABNORMAL) TSH Mckenzie (03/04/2015 10:15 AM EST) Thyroid Stimulating Hormone 1.17(Exte rnal Lab) 0.27 - 4.20 uIU/mL [facility] RESULT CONVERSION Comment: Sourced from [facility] [place] Conversion 03/04/2015 10:1 5 AM EST His Henrique Provider CHEMISTRY ORDERABL ES [facility] RESULT CONVERSION * (ABNORMAL) CMP (Angela conversion) (03/04/2015 10:15 AM EST) Est Glomerular Filtration Rate >60(Exte rnal Lab) ml/min/1.73m2 [facility] RESULT CONVERSION Comment: Sourced from [facility] Conversion Albumin 4.3(Exte rnal Lab) 3.5 - 5.2 g/dl [facility] RESULT CONVERSION Comment: Sourced from [facility] Conversion Alkaline Phosphatase 60(Exter nal Lab) 35 - 104 international units per liter [facility] RESULT CONVERSION Comment: Sourced from [facility] [place] Conversion Alanine Aminotransferase 24(Exter nal Lab) <33 international units per liter [facility] RESULT CONVERSION Comment: Sourced from [facility] [place] Conversion Aspartate Aminotransferase 19(Exter nal Lab) <32 international units per liter [facility] RESULT CONVERSION Comment: Sourced from [facility] Conversion Blood Urea Nitrogen 17(Exter nal Lab) 6 - 20 mg/dl [facility] RESULT CONVERSION Comment: Sourced from [facility] Conversion Calcium 9.2(Exte rnal Lab) 8.6 - 10.2 mg/dl [facility] RESULT CONVERSION Comment: Sourced from [facility] Conversion CKD Stage NL, 1or2(Ext ernal Lab) [facility] RESULT CONVERSION Comment: Sourced from [facility] Conversion Chloride 97(EXTER NAL/ABN) 98 - 107 mmol/L [facility] RESULT CONVERSION Comment: Sourced from [facility] [place] Conversion Carbon Dioxide 24(Exter nal Lab) 21 - 32 mmol/L [facility] RESULT CONVERSION Comment: Sourced from [facility] Conversion Creatinine 0.7(Exte rnal Lab) 0.7 - 1.2 mg/dl [facility] RESULT CONVERSION Comment: Sourced from [facility] Conversion Anion Gap 16(Exter nal Lab) 8 - 16 mmol/L [facility] RESULT CONVERSION Comment: Sourced from [facility] Conversion Glucose Fasting 94(Exter nal Lab) 70 - 100 mg/dl [facility] RESULT CONVERSION Comment: Sourced from [facility] Con[facility] Potassium 4.3(Exte rnal Lab) 3.3 - 5.1 mmol/L [facility] RESULT CONVERSION Comment: Sourced from [facility] Con[facility] Sodium 137(Exte rnal Lab) 136 - 145 mmol/L [facility] RESULT CONVERSION Comment: Sourced from [facility] Con[facility] Bilirubin, Total 0.2(Exte rnal Lab) <1.2 mg/dl [facility] RESULT CONVERSION Comment: Sourced from [facility] Conversion Protein, Total 7.3(Exte rnal Lab) 6.6 - 8.7 g/dl [facility] RESULT CONVERSION Comment: Sourced from [facility] [place] Conversion 03/04/2015 10:1 5 AM EST His Henrique Provider CHEMISTRY ORDERABL ES [facility] RESULT CONVERSION * (ABNORMAL) CBC (with Diff) (03/04/2015 10:15 AM EST) Baso Absolute 0.04(Exte rnal Lab) 0.0 - 0.2 THOUS [facility] RESULT CONVERSION Comment: Sourced from [facility] Basophil % 0.5(Exter nal Lab) 0.0 - 2.0 percent [facility] RESULT CONVERSION Comment: Sourced from [facility] Conversion Eosinophils Abs 0.40(Exte rnal Lab) 0.0 - 0.8 THOUS [facility] RESULT CONVERSION Comment: Sourced from [facility] Conversion Eos % 4.6(Exter nal Lab) 0.0 - 7.0 percent [facility] RESULT CONVERSION Comment: Sourced from [facility] Conversion Immature Gran Absolute 0.04(Exte rnal Lab) 0.0 - 0.05 THOUS [facility] RESULT CONVERSION Comment: Sourced from [facility] Conversion Immature Gran % 0.5(Exter nal Lab) 0.0 - 0.66 %/100 WBC [facility] RESULT CONVERSION Comment: Sourced from [facility] [place] Conversion Hematocrit 41.1(Exte rnal Lab) 37.0 - 47.0 percent [facility] RESULT CONVERSION Comment: Sourced from [facility] [place] Conversion Hemoglobin 13.5(Exte rnal Lab) 12.0 - 16.0 g/dl [facility] RESULT CONVERSION Comment: Sourced from [facility] Conversion White Blood Cell 8.64(Exte rnal Lab) 4.8 - 10.8 THOUS [facility] RESULT CONVERSION Comment: Sourced from [facility] [place] Conversion Lymphocytes Abs 2.64(Exte rnal Lab) 0.90 - 5.20 THOUS [facility] RESULT CONVERSION Comment: Sourced from [facility] [place] Conversion Lymph % 30.6(Exte rnal Lab) 19.0 - 48.0 percent [facility] RESULT CONVERSION Comment: Sourced from [facility] Conversion Mean Cell Hemoglobin 29.2(Exte rnal Lab) 27 - 31 pg [facility] RESULT CONVERSION Comment: Sourced from [facility] [place] Conversion Mean Cell Hemoglobin Concentration 32.8(EXTE RNAL/ABN) 33 - 37 g/dl [facility] RESULT CONVERSION Comment: Sourced from [facility] Conversion Mean Cell Volume 88.8(Exte rnal Lab) 81 - 99 FL [facility] RESULT CONVERSION Comment: Sourced from [facility] Conversion Monocyte Abs 0.69(Exte rnal Lab) 0.16 - 1.00 THOUS [facility] RESULT CONVERSION Comment: Sourced from [facility] Conversion Monocyte % 8.0(Exter nal Lab) 3.4 - 9.0 percent [facility] RESULT CONVERSION Comment: Sourced from [facility] Conversion Mean Platelet Volume 8.9(Exter nal Lab) 7.2 - 11.1 FL [facility] RESULT CONVERSION Comment: Sourced from [facility] Conversion ANC 4.83(Exte rnal Lab) 1.90 - 8.00 THOUS [facility] RESULT CONVERSION Comment: Sourced from [facility] Conversion Neutrophil % 55.8(Exte rnal Lab) 40.0 - 74.0 percent [facility] RESULT CONVERSION Comment: Sourced from [facility] Conversion NRBC Absolute 0.00(Exte rnal Lab) 0.0 - 0.012 THOUS [facility] RESULT CONVERSION Comment: Sourced from [facility] Conversion NRBC% auto 0.0(Exter nal Lab) 0.0 - 0.2 %/100 WBC [facility] RESULT CONVERSION Comment: Sourced from [facility] Conversion Platelet 360(Exter nal Lab) 130 - 400 THOUS [facility] RESULT CONVERSION Comment: Sourced from [facility] Conversion Red Blood Cell 4.63(Exte rnal Lab) 4.2 - 5.4 MILLIONS [facility] RESULT CONVERSION Comment: Sourced from [facility] Conversion RDW coefficient of variation 13.3(Exte rnal Lab) 11.5 - 14.5 percent [facility] RESULT CONVERSION Comment: Sourced from [facility] [place] Conversion 03/04/2015 10:1 5 AM EST His Henrique Provider HEMATOLOGY ORDERAB LES [facility] RESULT CONVERSION documented in this encounter Visit Diagnoses Not on filedocumented in this encounter
--- OUTSIDE RECORDS SUMMARY | 2023-10-04 01:08 | XMS_ITS | Encounter Summary ---
Author Organization [facility] [place] [address] Care Team Providers Care Tennis Player Name Role Phone Unavailable Primary Care Provider Unavailabl e Reason for Visit * Reason Onset Date Comments Follow-up 05/21/2015 Encounter Details Date Type Department Care Team (Late st Contact Info) Description 05/21/2015 Telephone Obstetrics [place] [phone] Tram Moeller, RN Follow-up Social History Tobacco [...] Telephone Encounter - Tram Moeller, RN - 05/21/2015 2:22 PM EDT TELEPHONE NOTE Caller: Pt Reason for call: Pt was to increase Trospium 20 mg per . Pt states she has only noticeda slight improvement, is still having urge symptoms. Pt has tried Oxybutynin in the past with no success. Pt would like to see if insurance would cover Myrbetriq. Plan/Instructions: Okay by , script for Myrbetriq 25 mg sent to pharmacy. documented in this encounter Plan of Treatment Not on file documented as of this encounter Visit Diagnoses Not on filedocumented in this encounter
--- OUTSIDE RECORDS SUMMARY | 2023-10-04 01:08 | XMS_ITS | Encounter Summary ---
[place] [address] Care Team Providers Care Manager Pet Name Role Phone Unavailable Primary Care Provider Unavailabl e Reason for Visit * Reason Onset Date Comments Prior Authorization 04/03/2015 mometasone Encounter Details Date Type Department Care Team (Late st Contact Info) Description 04/03/2015 Telephone Family Medicine at [facility] [address] [place] [phone] Kailyn Castro MA Prior Authorization (mometasone) Social History Tobacco Use Types Packs/Day Years [...] encounter Miscellaneous Notes * Telephone Encounter - Penny Ceja MA - 04/15/2015 1:02 PM EST Additional information(Problem list note for Allergic Rhinitis) was faxed to [facility] for reconsideration. Fax confirmation received. Awaiting decision. * Telephone Encounter - Penny Ceja MA - 04/15/2015 12:48 PM EST Case/Reference #: [id number] Denied: X Additional Information from Insurance carrier: Unable to approve Nasonex nasal spray 50 mcg/actuation. Please use flunisolide nasal solution, fluticasone propionate nasal suspension. Plan Guideline requires: (A) A diagnosis of allergic rhinitis (B) Documentation of inefficacy of, or contraindication or intolerance to two formulary alternatives (listed above). Can fax further info to for reconsideration. Appeal can be made within 180 days from 04/12/15 with letter of medical necessity in writing sent along with denial page and any supporting documentation. Will send more info for reconsideration. Patient is diagnosed with allergic rhinitis. * Telephone Encounter - Denise Horner CMA - 04/10/2015 4:37 PM EST Spoke to insurance. PA is still under review, but should have answer within 24 hours. Will contact patient as she can contact them tomorrow, 04/11/2015 * Telephone Encounter - Caroline Purdy - 04/09/2015 9:14 AM EST Message: Patient called back again because she hasn't heard anything back and really needs this medication filled. This chart writer spoke with Marbin in prior authorization who stated he would call the insurance company right now and call the patient back after. Advised patient of this. Patient verbalized understanding. Caller and relationship (if other than patient-full name): self Best time to call back: any Ok to leave a message: [ yes ] Ok to send my- message: [ no ] Offered Appointment: no Nurse contacted via: Message: x Call: Pager: * Telephone Encounter - Capri Castro - 04/08/2015 9:32 AM EST Patient called this morning and was told her prior auth had been submitted to her insurance but shejust called them and they said they do not have one from us. They asked her if we could call one inrather than fax it. She would like this done as soon as possible. * Telephone Encounter - Kailyn Castro MA - 04/03/2015 2:48 PM EST Medication Prior Authorization for Primary [place] [address] Patient: Emilee Bernal Patient : 1970 Subscriber Insurance: [place] [employer] Phone: Fax: Physician: THANIA ALVARADO Return Medication Requested: Mometasone Strength: 50mcg/actuation Frequency: 2 sprays 2x daily Disp.: 17g Refills: 5 Currently taking: Yes If yes, how lon Diagnosis for this medication: Allergic Rhinitis ICD-10 code: J30.9 documented in this encounter Plan of Treatment Not on file documented as of this encounter Visit Diagnoses Not on filedocumented in this encounter
--- OUTSIDE RECORDS SUMMARY | 2023-10-04 01:08 | XMS_ITS | Encounter Summary ---
Author Organization [facility] Address [facility] [place] [address] Care Team Providers Care Production Corrugator Name Role Phone Unavailable Primary Care Provider Unavailabl e Encounter Details Date Type Department Care Team (Late st Contact Info) Description 01/09/2015 Telephone Psychiatry [place] [phone] Cody Patton MD [facility] [address] Social History Tobacco Use Types Packs/Day Years [...] Telephone Encounter - Cody Patton MD - 01/09/2015 11:00 AM EST Received email from patient and responded as below: Julien Hebert, I'm sorry to hear that you're feeling worse again. For the present I would recommend increasing to one and a half tablets of the Paxil daily, which would be 30 mg, since dose increases are recommended to only be 10 mg at a time. We will be seeing you in 10 days and can reassess and consider other options then. As always, if you are having thoughts of suicide or harming yourself or someone else please call the crisis number at , 911, or go to your nearest emergency department. I look forward to seeing you. Best Regards, Cody Patton MD documented in this encounter Plan of Treatment Not on file documented as of this encounter Visit Diagnoses Not on filedocumented in this encounter
--- OUTSIDE RECORDS SUMMARY | 2023-10-04 01:08 | XMS_ITS | Encounter Summary ---
[place] [address] Care Team Providers Care Contracting Manager Name Role Phone Unavailable Primary Care Provider Unavailabl e Encounter Details Date Type Department Care Team (Late st Contact Info) Description 05/07/2015 Abstract [facility] Information Services [address] [place] [address] [place] [phone] Provider, His [place] MD Social History Tobacco [...] Comments Blood Pressure - - Pulse 113 05/07/2015 9:10 AM EST Sourced from [employer] Conversion Temperature - - Respiratory Rate - - Oxygen Saturation - - Inhaled Oxygen Concentration - - Weight 77.1 kg (170 lb) 05/07/2015 9:10 AM EST Sourced from [employer] Conversion Height - - Body Mass Index 28.07 03/04/2015 9:00 AM EST documented in this encounter Plan of Treatment Not on file documented as of this encounter Visit Diagnoses Not on filedocumented in this encounter
--- OUTSIDE RECORDS SUMMARY | 2023-10-04 01:08 | XMS_ITS | Encounter Summary ---
Author Organization [facility] [place] [address] Care Team Providers Care Hat Renovator Name Role Phone Unavailable Primary Care Provider Unavailabl e Reason for Visit * Reason Onset Date Comments Follow-up 06/02/2015 Encounter Details Date Type Department Care Team (Late st Contact Info) Description 06/02/2015 Telephone Obstetrics [place] [phone] Tram Moeller, RN Follow-up Social History Tobacco [...] Telephone Encounter - Tram Moeller, RN - 06/02/2015 2:20 PM EDT TELEPHONE NOTE Caller: Pt Reason for call: Pt was placed on Myrbetriq 25 mg per . Pt states the first week pt's urinary symptoms improved, pt now feels she is going back to urinary leakage. Pt is asking about the interstim procedure. BP today was 122/75. Plan/Instructions: Will have pt continue taking Myrbetriq if leakage continues can increase to 50 mg since pt did have relief in the beginning. Pt will continue and call back next week with results. Will review with . documented in this encounter Plan of Treatment Not on file documented as of this encounter Visit Diagnoses Not on filedocumented in this encounter
--- OUTSIDE RECORDS SUMMARY | 2023-10-04 01:08 | XMS_ITS | Encounter Summary ---
Author [place] [address] Care Team Providers Care Flattening Press Operator Name Role Phone Unavailable Primary Care Provider Unavailabl e Encounter Details Date Type Department Care Team (Late st Contact Info) Description 07/14/2015 9:30 AM EDT Office Visit Primary Care [address] [phone] Fay Blake APRN [facility] [place] [address] Social History Tobacco Use Types Packs/Day Years [...]
--- OUTSIDE RECORDS SUMMARY | 2023-10-04 01:08 | XMS_ITS | Encounter Summary ---
Author Organization [facility] [place] [address] Care Team Providers Care Fire Information Officer Name Role Phone Unavailable Primary Care Provider Unavailabl e Encounter Details Date Type Department Care Team (Late st Contact Info) Description 11/28/2014 Orders Only Psychiatry [place] [phone] Cody Patton MD [facility] [place] [address] Social History Tobacco Use Types Packs/Day Years [...]
--- OUTSIDE RECORDS SUMMARY | 2023-10-04 01:08 | XMS_ITS | Encounter Summary ---
Author Organization [facility] [place] [address] Care Team Providers Care Hearing Impaired Teacher Name Role Phone Unavailable Primary Care Provider Unavailabl e Reason for Visit * Reason Comments Follow-up Ditropan therapy Encounter Details Date Type Department Care Team (Late st Contact Info) Description 04/09/2015 2:15 PM EST Office Visit Obstetrics [place] [phone] Abundio Griffith MD [facility] [address] OBSTETRICS [place] [address] Urge incontinence of urine; Leukocytes in urine Social History Tobacco Use Types Packs/Day Years [...] Sign Reading Time Taken Comments Blood Pressure 104/70 04/09/2015 2:03 PM EST Pulse 88 04/09/2015 2:03 PM EST Temperature - - Respiratory Rate - - Oxygen Saturation - - Inhaled Oxygen Concentration - - Weight - - Height - - Body Mass Index - - documented in this encounter Patient Instructions * Patient Instructions* Abundio Griffith MD - 04/09/2015 3:50 PM EST ?? Take Bactrim DS twice daily for 5 days for treatment of your urinary tract infection. ?? Call in ~ 3 weeks to let us know how your urgency is doing. documented in this encounter Progress Notes * Abundio Griffith MD - 04/09/2015 3:35 PM EST Patient Active Problem List Diagnosis Code ??? Allergic rhinitis J30.9 ??? Back pain M54.9 ??? Work related injury Y99.0 ??? PTSD (post-traumatic stress disorder) F43.10 ??? Bipolar disorder F31.9 ??? Overactive thyroid gland E05.90 ??? Fibromyalgia M79.7 ??? Hypothyroidism E03.9 ??? Vitamin B 12 deficiency E53.8 ??? Sleep apnea G47.30 ??? LSIL (low grade squamous intraepithelial lesion) on Pap smear [id number] ??? DDD (degenerative disc disease), lumbar M51.36 ??? Low back pain M54.5 ??? Polyp of colon, adenomatous D12.6 ??? Thyroid nodule E04.1 ??? Neck pain, chronic M54.2, G89.29 ??? Vitamin D deficiency E55.9 ??? Stress incontinence, female N39.3 SUBJECTIVE: Emilee Bernal comes in today for follow-up of urge urinary incontinence. She has been taking oxybutynin ER. She initially had a good response on 5 mg daily but stopped having benefit fromthe oxybutynin. She was increased to 10 mg daily 03/30/15 and has concerns that she has not improved.She is voiding 2-3 times every hour. She doubled her dose last week to 20 mg daily and still has not had improvement. She denies dysuria but has bad urgency. She has some constipation on the higher dose of the oxybutynin. OBJECTIVE: Blood pressure 104/70, pulse 88. Results for orders placed or performed in visit on 04/09/15 Urinalysis with reflex Culture Result Value Ref Range Glucose UA Negative Negative mg/dL Protein UA 30 (A) Negative mg/dL Bilirubin UA Negative Negative mg/dL Urobilinogen UA Normal Normal mg/dL pH UA 7.0 5.0 - 8.0 Blood UA Negative Negative mg/dL Ketones UA Negative Negative mg/dL Nitrite UA Positive (A) Negative Leukocytes UA Large (A) Negative mcL Appearance UA Cloudy (A) Clear Spec [place] UA 1.011 1.002 - 1.030 Color UA Yellow Yellow RBC UA 6 (H) 0 - 4 /HPF WBC UA >182 (H) 0 - 5 /HPF WBCs Clumping Moderate (A) None /HPF Squam Epith UA 6 (H) <=4 /HPF Culture Reflexed Yes POCT urine dipstick Result Value Ref Range POC Leuk, UA 2+ Negative - Negative POC Nitrite, UA Pos. Negative - Negative POC Protein, UA Trace Negative - Negative mg/dL POC Blood, UA Trace Negative - Negative oscar/uL Bladder Scanner Result Value Ref Range Bladder Scan (mL) 25 mL ASSESSMENT: Emilee Bernal is a 44 y.o. year old woman with: ?? UTI based on urine dipstick and micro. PLAN: ??? Empiric treatment with Bactrim DS twice daily for 5 days. ??? Send urine for culture. ??? Call in 3 weeks to reassess urgency symptoms. Stay on 20 mg daily of the oxybutynin ER. ABUNDIO GRIFFITH MD Division of Female Pelvic Medicine & Reconstructive Surgery documented in this encounter Plan of Treatment Not on file documented as of this encounter Procedures Procedure Name Priority Date/Time Associated Diagnosis Comments URINALYSIS WITH REFLEX CULTURE Routine 04/09/2015 2:53 PM EST Leukocytes in urine URINE CULTURE Routine 04/09/2015 2:53 PM EST BLADDER SCANNER Routine 04/09/2015 Urge incontinence of urine POCT URINE DIPSTICK Routine 04/09/2015 Urge incontinence of urine documented in this encounter Results * (ABNORMAL) Urine culture (04/09/2015 2:53 PM EST) Urine Culture Greater than 100,000 cfu/ml Escherichia coli(A) CERNER MILLENNIUM Organism Escherichia coli(A) CERNER MILLENNIUM Urine specimen obtained by clean catch procedure (specimen) 04/09/2015 2:53 PM EST 04/09/2015 4:12 PM EST Narrative Resulting Agency Comment Spec In Lab Organism Antibiotic Method Susceptibility Escherichia coli Amikacin MICROSCAN METHOD Sensitive Escherichia coli Ampicillin MICROSCAN METHOD Sensitive Escherichia coli Ampicillin + Sulbactam MICROSCAN METH OD Sensitive Escherichia coli Aztreonam MICROSCAN METHOD Sensitive Escherichia coli Cefazolin MICROSCAN METHOD Sensitive Escherichia coli Cefepime MICROSCAN METHOD Sensitive Escherichia coli Ceftazidime MICROSCAN METHOD Sensitive Escherichia coli Ceftriaxone MICROSCAN METHOD Sensitive Escherichia coli Cefuroxime MICROSCAN METHOD Sensitive Escherichia coli Ciprofloxacin MICROSCAN METHOD Sensitive Escherichia coli Gentamicin MICROSCAN METHOD Sensitive Escherichia coli Levofloxacin MICROSCAN METHOD Sensitive Escherichia coli Meropenem MICROSCAN METHOD Sensitive Escherichia coli Nitrofurantoin MICROSCAN METHOD Sensitive Escherichia coli Piperacillin/Tazobactam MICROSCAN MET HOD Sensitive Escherichia coli Tetracycline MICROSCAN METHOD Sensitive Escherichia coli Tobramycin MICROSCAN METHOD Sensitive Escherichia coli Trimethoprim/Sulfa MICROSCAN METHOD Sensitive Abundio Griffith MD MICROBIOLOGY - GENER AL ORDERABLES [facility] * (ABNORMAL) Urinalysis with reflex Culture (04/09/2015 2:53 PM EST) Glucose, Urine Dipstick Negative Negative mg/dL CERNER MILLENNIUM Protein, Urine Dipstick 30(A) Negative mg/dL CERNER MILLENNIUM Bilirubin, Urine Dipstick Negative Negative mg/dL CERNER MILLENNIUM Comment: Clinical correlation required for positive Urine Bilirubin results as false positive may occur with some drugs and drug related products. If a false positive is suspected a serum total bilirubin should be considered if clinically indicated. Urobilinogen, Urine Dipstick Normal Normal mg/dL CERNER MILLENNIUM pH, Urn (dipstick) 7.0 5.0 - 8.0 CERNER MILLENNIUM Blood, Urine Dipstick Negative Negative mg/dL CERNER MILLENNIUM Ketone, Urine Dipstick Negative Negative mg/dL CERNER MILLENNIUM Nitrite, Urine Dipstick Positive(A) Negative CERNER MILLENNIUM Leukocytes, Urine Dipstick Large(A) Negative mcL [facility] Appearance, Urine Dipstick Cloudy(A) Clear [facility] Specific [place] Urine Automated 1.011 1.002 - 1.030 [facility] Color, Urine Dipstick Yellow Yellow [facility] M[facility] RBC, Urine 6(H) 0 - 4 /HPF [facility] M[facility] WBC, Urine >182(H) 0 - 5 /HPF [facility] MILL[facility] WBC Clumps, Urine Moderate(A) None /HPF [facility] M[facility] Bacteria, Urine Occasional(A ) None /HPF CERNER MILLENNIUM Squamous Epithelial Cells, Urine 6(H) <=4 /HPF [facility] Reflex to Culture Yes [facility] Urine specimen obtained by clean catch procedure (specimen) 04/09/2015 2:53 PM EST 04/09/2015 3:36 PM EST Narrative Resulting Agency Comment Spec In Lab Abundio Griffith MD URINE ORDERABLES [facility] * Bladder Scanner (04/09/2015) Bladder Scan (mL) 25 mL Abundio Griffith MD URO PROC W/O RFL ORD ERABLES * POCT urine dipstick (04/09/2015) POC Leuk, UA 2+ Negative - Negative POC Nitrite, UA Pos. Negative - Negative POC Protein, UA Trace Negative - Negative mg/dL POC Blood, UA Trace Negative - Negative oscar/uL Abundio Griffith MD POINT OF CARE TEST O RDERABLES documented in this encounter Visit Diagnoses Diagnosis Urge incontinence of urine Urge incontinence Leukocytes in urine Other nonspecific finding on examination of urine documented in this encounter
--- OUTSIDE RECORDS SUMMARY | 2023-10-04 01:08 | XMS_ITS | Encounter Summary ---
Author Organization [facility] [place] [address] Care Team Providers Care De Icer Kit Assembler Name Role Phone Unavailable Primary Care Provider Unavailabl e Reason for Referral * Psychiatric (Routine) - Closed Specialty Diagnoses / Procedures Referred By Contac t Referred To Contact Psychiatry Diagnoses Psychiatric diagnosis Cody Patton MD [facility] [place] [address] [facility] Psychiatry [address] [place] [phone] Referral ID Status Reason Start Date Expiration Date V isits Requested Visits Authorized [id number] Closed Consult, Test & Treat 03/18/2015 03/17/2016 1 1 Encounter Details Date Type Department Care Team (Late st Contact Info) Description 03/18/2015 Orders Only Psychiatry [place] [address] Cody Patton MD [facility] [place] [address] Psychiatric diagnosis Social History Tobacco Use Types Packs/Day Years [...] Scheduled Referrals Name Type Priority Associated Diagnoses Order Schedule Referral to Psychiatry Outpatient Referral Routine Psychiatric diagnosis Ordered: 03/18/2015 documented as of this encounter Visit Diagnoses Diagnosis 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
--- OUTSIDE RECORDS SUMMARY | 2023-10-04 01:08 | XMS_ITS | Encounter Summary ---
[place] [address] Care Team Providers Care Car Retarder Operator Name Role Phone Unavailable Primary Care Provider Unavailabl e Encounter Details Date Type Department Care Team (Late st Contact Info) Description 05/10/2015 [place] [phone] Celestine Bauer MD EMERGENCY DEPT [address] [place] [address] Social History Tobacco Use Types Packs/Day Years [...] Priority Date/Time Associated Diagnosis Comments XR CHEST PA AND LATERAL Routine 05/10/2015 9:24 PM EDT documented in this encounter Results * XR Chest PA & Lateral (Generic) (05/10/2015 9:24 PM EDT) Anatomical Region Laterality Modality Chest N/A Radiographic Kiera ging 05/10/2015 9:24 PM EDT Narrative 05/11/2015 9:53 PM EDT External Results Rufina Duenas Final Report EXAMINATION: ??RAD 7102 - CHEST 2V FRONTAL/LAT ? [id number] DIAGNOSIS: ?CHEST PAIN REASON: ? chest pain RESULT: ? Chest, no comparison. IMPRESSION: ? Heart and mediastinal structures within normal limits. Lungs are clear. INTERPRETING PHYSICIAN: ??JIMENA REDMOND M.D. May 11 2015 ??7:27A ? TRANSCRIBED BY/DATE: ?? DLP on May 11 2015 ??2:07P ELECTRONICALLY AUTHORIZED BY: ?? JIMENA REDMOND M.D. ? May 11 2015 ??9:53P Procedure Note Jimena Redmond MD - 10/08/2016 External Results Rufinacorin Duenas Final Report EXAMINATION: RAD 7102 - CHEST 2V FRONTAL/LAT [id number] DIAGNOSIS: CHEST PAIN REASON: chest pain RESULT: Chest, no comparison. IMPRESSION: Heart and mediastinal structures within normal limits. Lungs are clear. INTERPRETING PHYSICIAN: JIMENA REDMOND M.D. May 11 2015 7:27A TRANSCRIBED BY/DATE: DLP on May 11 2015 2:07P ELECTRONICALLY AUTHORIZED BY: JIMENA REDMOND M.D. May 11 2015 9:53P Celestine Bauer MD IMG DX ORDERABLES documented in this encounter Visit Diagnoses Not on filedocumented in this encounter
--- OUTSIDE RECORDS SUMMARY | 2023-10-04 01:08 | XMS_ITS | Encounter Summary ---
Author Organization [facility] [place] [address] Care Team Providers Care Bark Spudder Name Role Phone Unavailable Primary Care Provider Unavailabl e Encounter Details Date Type Department Care Team (Late st Contact Info) Description 04/28/2015 Orders Only Psychiatry [place] [address] Cody Patton MD [facility] [place] [address] Social History Tobacco Use Types Packs/Day Years [...]
--- OUTSIDE RECORDS SUMMARY | 2023-10-04 01:08 | XMS_ITS | Encounter Summary ---
Author Organization [facility] Address [facility] [place] [address] Care Team Providers Care Ribbon Inker Name Role Phone Dina Diaz Primary Care Provider + Reason for Visit * Reason Comments Medication Refill Encounter Details Date Type Department Care Team (Late st Contact Info) Description 03/08/2015 Refill Psychiatry [place] [address] Cody Patton MD [facility] [place] [address] Social History Tobacco Use Types Packs/Day Years [...] on filedocumented in this encounter Care Teams Ribbon Inker Relationship Specialty Start Date End Date Dina Diaz PA [address] [place] [id number] PCP - General Internal Medicine 05/26/20 documented as of this encounter
--- OUTSIDE RECORDS SUMMARY | 2023-10-04 01:08 | XMS_ITS | Encounter Summary ---
Author Organization [facility] [place] [address] Care Team Providers Care Cold Rolling Coordinator Name Role Phone Unavailable Primary Care Provider Unavailabl e Encounter Details Date Type Department Care Team ([facility] Contact Info) Description 05/06/2015 1:00 PM EST Office Visit Primary Care [address] [phone] Sunny Sunshine PA [address] [place] [phone] Social History Tobacco Use Types Packs/Day Years [...]
--- OUTSIDE RECORDS SUMMARY | 2023-10-04 01:08 | XMS_ITS | Encounter Summary ---
[facility] Organization [facility] [place] [address] Care Team Providers Care Net Mender Name Role Phone Unavailable Primary Care Provider Unavailabl e Reason for Visit * Reason Comments Enuresis Urinary frequency, i ncontinence, and increased thirst. Having pain in hands and fingers that wakes her up in the night. Needs Epipen dual pack and Nasonex nasal spray refills. Encounter Details Date Type Department Care Team (Late st Contact Info) Description 01/08/2015 10:30 AM EST Office Visit Family Medicine at [facility] [address] [place] [id number] Osmar Antoine, [facility] [place] [address] Stress incontinence, female (Primary Dx); Allergic rhinitis, unspecified allergic rhinitis type; Sleep apnea; Constipation, unspecified constipation type Social History Tobacco Use Types Packs/Day [...] Sign Reading Time Taken Comments Blood Pressure 103/58 01/08/2015 10:39 AM EST right arm Pulse 95 01/08/2015 10:39 AM EST Temperature 37 ??C (98.6 ??F) 01/08/2015 10: 39 AM EST Respiratory Rate 18 01/08/2015 10:3 9 AM EST Oxygen Saturation 99% 01/08/2015 10: 39 AM EST Inhaled Oxygen Concentration - - Weight 80.6 kg (177 lb 9.6 oz) 01/09/20 15 10:39 AM EST Height 165.9 cm (5' 5.32) 01/08/2015 1 0:39 AM EST Body Mass Index 29.27 01/08/2015 10:39 AM EST documented in this encounter Patient Instructions * Patient Instructions* Osmar Antoine DO - 01/08/2015 11:20 AM EST Images from the original note were not included. 1. Stress incontinence, female *please discuss with IN[employer] SP[employer]ISH today, may consider trial ditropan if urine Cx negative. - POCT urine dipstick - Urinalysis with reflex Culture 2. Allergic rhinitis, unspecified allergic rhinitis type - refill request, reviewed proper nasal spray technique - mometasone (NASONEX) 50 mcg/actuation [place], Non-Aerosol; 2 sprays by Nasal route 2 times daily. Dispense: 17 g; Refill: 5 - EPINEPHrine (EPIPEN) 0.3 mg/0.3 mL (1:1,000) Auto-Injector; Inject 0.3 mLs into the muscle once as needed. Dispense: 1 each; Refill: 1 3. Sleep apnea Proper sleep hygiene: Maintain a healthy bedtime routine, avoid alcohol, tobacco or high sugar foods prior to bedtime. Don't change bedtime/awaking time by more than an hour. Bed is for sex and sleeponly (remove TV from bedroom). Bedroom should be cool, dark & quiet. If not asleep within 45 minutes get out of bed and read quietly. Keep lights dim throughout house leading up to bedtime. 4. Constipation, unspecified constipation type * Soft stool requires: fiber in diet and regular water intake - Trial Daily MiraLax until stool soft, then reduce to every other day to keep stool soft. [facility] Constipation: After Your Visit Your Care Instructions Constipation means that you have a hard time passing stools (bowel movements). People pass stools from 3 times a day to once every 3 days. What is normal for you may be different. Constipation may occur with pain in the rectum and cramping. The pain may get worse when you try to pass stools. Sometimes there are small amounts of bright red blood on toilet paper or the surface of stools. This is because of enlarged veins near the rectum (hemorrhoids). A few changes in your diet and lifestyle may help you avoid ongoing constipation. Your doctor may also prescribe medicine to help loosen your stool. Some medicines can cause constipation. These include pain medicines and antidepressants. Tell your doctor about all the medicines you take. Your doctor may want to make a medicine change to ease yoursymptoms. Follow-up care is a renner part of your treatment and safety. Be sure to make and go to all appointments, and call your doctor if you are having problems. It's also a good idea to know your test resultsand keep a list of the medicines you take. How can you care for yourself at home? ?? Drink plenty of fluids, enough so that your urine is light yellow or clear like water. If you have kidney, heart, or liver disease and have to limit fluids, talk with your doctor before you increase the amount of fluids you drink. ?? Include high-fiber foods in your diet each day. These include fruits, vegetables, beans, and whole grains. ?? Get at least 30 minutes of exercise on most days of the week. Walking is a good choice. You alsomay want to do other activities, such as running, swimming, cycling, or playing tennis or team sports. ?? Take a fiber supplement, such as Citrucel or Metamucil, every day. Read and follow all instructions on the label. ?? Schedule time each day for a bowel movement. A daily routine may help. Take your time having your bowel movement. ?? Support your feet with a small step stool when you sit on the toilet. This helps flex your hips and places your pelvis in a squatting position. ?? Your doctor may recommend an dhip-[id number]-[id number] laxative to relieve your constipation. Examples are Milk of Magnesia and MiraLax. Read and follow all instructions on the label. Do not use laxatives on a long-term basis. When should you call for help? Call your doctor now or seek immediate medical care if: ?? You have new or worse belly pain. ?? You have new or worse nausea or vomiting. ?? You have blood in your stools. Watch closely for changes in your health, and be sure to contact your doctor if: ?? Your constipation is getting worse. ?? You do not get better as expected. [facility] Kegel Exercises: After Your Visit Your Care Instructions Kegel exercises strengthen muscles around the bladder. These muscles control the flow of urine. Kegel exercises are sometime called pelvic floor exercises. They can help prevent urine leakage and keep the pelvic organs in place. A woman who just had a baby might want to try Kegel exercises. They can strengthen pelvic muscles that have been weakened by and childbirth. A man or woman may use Kegel exercises to treat urine leakage. You do Kegel exercises by tightening the muscles you use when you urinate. You will likely need to do these exercises for several weeks to get better. Follow-up care is a renner part of your treatment and safety. Be sure to make and go to all appointments, and call your doctor if you are having problems. It's also a good idea to know your test resultsand keep a list of the medicines you take. How can you care for yourself at home? ?? Do Kegel exercises. ?? Find the muscles you need to strengthen. To do this, tighten the muscles that stop your urine while you are going to the bathroom. These are the same muscles you squeeze during Kegel exercises. ?? Squeeze the muscles as hard as you can. Your belly and thighs should not move. ?? Hold the squeeze for 3 seconds. Then relax for 3 seconds. ?? Start with 3 seconds, and then add 1 second each week until you are able to squeeze for 10 seconds. ?? Repeat the exercise 10 to 15 times for each session. Do three or more sessions each day. ?? You can check to see if you are using the right muscles. Place a finger in your vagina and squeeze around it. You are doing them right when you feel pressure around your finger. Your doctor may also suggest that you put special weights in your vagina while you do the exercises. ?? Do not smoke. It can irritate the bladder. If you need help quitting, talk to your doctor about stop-smoking programs and medicines. These can increase your chances of quitting for good. [facility] Stress Incontinence in Women: After Your Visit Your Care Instructions Stress incontinence is the accidental release of urine caused by activities that put pressure on your bladder. It may happen most often when you sneeze, cough, laugh, jog, or lift something heavy. This condition does not cause major health problems, but it can be embarrassing and interfere with your life. Treatment can cure or improve your symptoms. Follow-up care is a renner part of your treatment and safety. Be sure to make and go to all appointments, and call your doctor if you are having problems. It's also a good idea to know your test resultsand keep a list of the medicines you take. How can you care for yourself at home? ?? Take your medicines exactly as prescribed. Call your doctor if you think you are having a problem with your medicine. ?? Limit caffeine and alcohol. They make you urinate more. ?? Do pelvic floor (Kegel) exercises, which tighten and strengthen pelvic muscles. To do Kegel exercises: ?? Squeeze the same muscles you would use to stop your urine. Your belly and thighs should not move. ?? Hold the squeeze for 3 seconds, and then relax for 3 seconds. ?? Start with 3 seconds. Then add 1 second each week until you are able to squeeze for 10 seconds. ?? Repeat the exercise 10 to 15 times a session. Do three or more sessions a day. ?? Try wearing pads that absorb leaks. ?? Keep skin in the genital area dry. Petroleum jelly (like Vaseline) spread on the area may help protect your skin. When should you call for help? Call your doctor now or seek immediate medical care if: ?? You develop a fever. ?? You feel like you need to urinate often, or you feel burning or pain when you urinate. ?? You have a hard time urinating when your bladder feels full. ?? Your urine looks bloody. Watch closely for changes in your health, and be sure to contact your doctor if: ?? Your bladder feels full even after you urinate. ?? You do not get better as expected. Where can you learn more? Visit our health information library at http://MyWebzz/healthinfo You can also view health information on Fanbase, your personal patient account. Log in or sign up today. Enter T627 in the search box to learn more about Stress Incontinence in Women: After Your Visit. ?? [id number] [email or web address]. Care instructions adapted under license by [facility]. This care instruction is for use with your licensed healthcare professional. If you have questions about a medical condition or this instruction, always ask your healthcare professional. [employer] disclaims any warranty or liability for your use of this information. Content Version: 10.4.510390; Current as of: November 05, 2013 documented in this encounter Progress Notes * Osmar Antoine DO - 01/08/2015 10:57 AM EST Images from the original note were not included. Subjective: Patient ID: Emilee Bernal is a 44 y.o. female. Chief Complaint Patient presents with ??? Enuresis Urinary frequency, incontinence, and increased thirst. Having pain in hands and fingers that wakes her up in the night. Needs Epipen dual pack and Nasonex nasal spray refills. Urinary urgency: ongoing issue onset years ago ~5 yrs, Worse last 6 months. (+) stress incontinence: worse last 6 moths, when coughing or laughing, last 6 months, wearing pad last year. PT for kegel exercises ~5yrs ago: no change - [facility] IN[employer] q6 months for HPV lesion *f/u scheduled for today* Prior Urology eval at [facility] in [facility] ~4 yrs ago constipation Trial of fiber: no change,LBM: 2 days ago: normally hard, (+) Hx constipation: small ball stools last week (+) Hx of microscopic hematuria (-) Hx of tobacco abuse. Denied: dysuria, frequency, fever, chills, new night sweats, vaginal bleeding or discharge LNMP ~3 months ago (last intercourse 1 month ago: no pain) 11/10/2014 lab results reviewed (normal TSH 05/2014) - Finger numbness, tingling, pain awaking at nighttime: resolved w/Tyleonl, supine sleeping position. 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 Physical Exam Constitutional: Well developed, well nourished, no acute distress, non-toxic appearance Respiratory: No respiratory distress, normal breath sounds, no rales, no wheezing Cardiovascular: Normal rate, normal rhythm, no murmurs, no gallops, no rubs GI: Obese, Soft, nondistended, normal bowel sounds, nontender, no organomegaly, no mass, no rebound, no guarding Integument: Well hydrated, no rash Neurologic: Alert & oriented, no focal deficits noted, DTRs intact bilateral UE & LE Psychiatric: Speech and behavior appropriate Assessment and Plan: Assessment/Plan Patient Instructions 1. Stress incontinence, female *please discuss with IN[employer] SP[employer]ISH today, may consider trial ditropan if urine Cx negative. - POCT urine dipstick - Urinalysis with reflex Culture 2. Allergic rhinitis, unspecified allergic rhinitis type - refill request, reviewed proper nasal spray technique - mometasone (NASONEX) 50 mcg/actuation [place], Non-Aerosol; 2 sprays by Nasal route 2 times daily. Dispense: 17 g; Refill: 5 - EPINEPHrine (EPIPEN) 0.3 mg/0.3 mL (1:1,000) Auto-Injector; Inject 0.3 mLs into the muscle once as needed. Dispense: 1 each; Refill: 1 3. Sleep apnea Proper sleep hygiene: Maintain a healthy bedtime routine, avoid alcohol, tobacco or high sugar foods prior to bedtime. Don't change bedtime/awaking time by more than an hour. Bed is for sex and sleeponly (remove TV from bedroom). Bedroom should be cool, dark & quiet. If not asleep within 45 minutes get out of bed and read quietly. Keep lights dim throughout house leading up to bedtime. 4. Constipation, unspecified constipation type * Soft stool requires: fiber in diet and regular water intake - Trial Daily MiraLax until stool soft, then reduce to every other day to keep stool soft. [facility] Constipation: After Your Visit Your Care Instructions Constipation means that you have a hard time passing stools (bowel movements). People pass stools from 3 times a day to once every 3 days. What is normal for you may be different. Constipation may occur with pain in the rectum and cramping. The pain may get worse when you try to pass stools. Sometimes there are small amounts of bright red blood on toilet paper or the surface of stools. This is because of enlarged veins near the rectum (hemorrhoids). A few changes in your diet and lifestyle may help you avoid ongoing constipation. Your doctor may also prescribe medicine to help loosen your stool. Some medicines can cause constipation. These include pain medicines and antidepressants. Tell your doctor about all the medicines you take. Your doctor may want to make a medicine change to ease yoursymptoms. Follow-up care is a renner part of your treatment and safety. Be sure to make and go to all appointments, and call your doctor if you are having problems. It's also a good idea to know your test resultsand keep a list of the medicines you take. How can you care for yourself at home? ?? Drink plenty of fluids, enough so that your urine is light yellow or clear like water. If you have kidney, heart, or liver disease and have to limit fluids, talk with your doctor before you increase the amount of fluids you drink. ?? Include high-fiber foods in your diet each day. These include fruits, vegetables, beans, and whole grains. ?? Get at least 30 minutes of exercise on most days of the week. Walking is a good choice. You alsomay want to do other activities, such as running, swimming, cycling, or playing tennis or team sports. ?? Take a fiber supplement, such as Citrucel or Metamucil, every day. Read and follow all instructions on the label. ?? Schedule time each day for a bowel movement. A daily routine may help. Take your time having your bowel movement. ?? Support your feet with a small step stool when you sit on the toilet. This helps flex your hips and places your pelvis in a squatting position. ?? Your doctor may recommend an nczg-bcn-[id number] laxative to relieve your constipation. Examples are Milk of Magnesia and MiraLax. Read and follow all instructions on the label. Do not use laxatives on a long-term basis. When should you call for help? Call your doctor now or seek immediate medical care if: ?? You have new or worse belly pain. ?? You have new or worse nausea or vomiting. ?? You have blood in your stools. Watch closely for changes in your health, and be sure to contact your doctor if: ?? Your constipation is getting worse. ?? You do not get better as expected. [facility] Kegel Exercises: After Your Visit Your Care Instructions Kegel exercises strengthen muscles around the bladder. These muscles control the flow of urine. Kegel exercises are sometime called pelvic floor exercises. They can help prevent urine leakage and keep the pelvic organs in place. A woman who just had a baby might want to try Kegel exercises. They can strengthen pelvic muscles that have been weakened by and childbirth. A man or woman may use Kegel exercises to treat urine leakage. You do Kegel exercises by tightening the muscles you use when you urinate. You will likely need to do these exercises for several weeks to get better. Follow-up care is a renner part of your treatment and safety. Be sure to make and go to all appointments, and call your doctor if you are having problems. It's also a good idea to know your test resultsand keep a list of the medicines you take. How can you care for yourself at home? ?? Do Kegel exercises. ?? Find the muscles you need to strengthen. To do this, tighten the muscles that stop your urine while you are going to the bathroom. These are the same muscles you squeeze during Kegel exercises. ?? Squeeze the muscles as hard as you can. Your belly and thighs should not move. ?? Hold the squeeze for 3 seconds. Then relax for 3 seconds. ?? Start with 3 seconds, and then add 1 second each week until you are able to squeeze for 10 seconds. ?? Repeat the exercise 10 to 15 times for each session. Do three or more sessions each day. ?? You can check to see if you are using the right muscles. Place a finger in your vagina and squeeze around it. You are doing them right when you feel pressure around your finger. Your doctor may also suggest that you put special weights in your vagina while you do the exercises. ?? Do not smoke. It can irritate the bladder. If you need help quitting, talk to your doctor about stop-smoking programs and medicines. These can increase your chances of quitting for good. [facility] Stress Incontinence in Women: After Your Visit Your Care Instructions Stress incontinence is the accidental release of urine caused by activities that put pressure on your bladder. It may happen most often when you sneeze, cough, laugh, jog, or lift something heavy. This condition does not cause major health problems, but it can be embarrassing and interfere with your life. Treatment can cure or improve your symptoms. Follow-up care is a renner part of your treatment and safety. Be sure to make and go to all appointments, and call your doctor if you are having problems. It's also a good idea to know your test resultsand keep a list of the medicines you take. How can you care for yourself at home? ?? Take your medicines exactly as prescribed. Call your doctor if you think you are having a problem with your medicine. ?? Limit caffeine and alcohol. They make you urinate more. ?? Do pelvic floor (Kegel) exercises, which tighten and strengthen pelvic muscles. To do Kegel exercises: ?? Squeeze the same muscles you would use to stop your urine. Your belly and thighs should not move. ?? Hold the squeeze for 3 seconds, and then relax for 3 seconds. ?? Start with 3 seconds. Then add 1 second each week until you are able to squeeze for 10 seconds. ?? Repeat the exercise 10 to 15 times a session. Do three or more sessions a day. ?? Try wearing pads that absorb leaks. ?? Keep skin in the genital area dry. Petroleum jelly (like Vaseline) spread on the area may help protect your skin. When should you call for help? Call your doctor now or seek immediate medical care if: ?? You develop a fever. ?? You feel like you need to urinate often, or you feel burning or pain when you urinate. ?? You have a hard time urinating when your bladder feels full. ?? Your urine looks bloody. Watch closely for changes in your health, and be sure to contact your doctor if: ?? Your bladder feels full even after you urinate. ?? You do not get better as expected. Where can you learn more? Visit our health information library at [email or web address]/5151tuano You can also view health information on Fanbase, your personal patient account. Log in or sign up today. Enter T627 in the search box to learn more about Stress Incontinence in Women: After Your Visit. ?? [id number] [email or web address]. Care instructions adapted under license by [facility]. This care instruction is for use with your licensed healthcare professional. If you have questions about a medical condition or this instruction, always ask your healthcare professional. [employer] disclaims any warranty or liability for your use of this information. Content Version: 10.4.314327; Current as of: November 05, 2013 documented in this encounter Plan of Treatment Not on file documented as of this encounter Procedures Procedure Name Priority Date/Time Associated Diagnosis Comments POCT URINE DIPSTICK Routine 01/08/2015 1 0:40 AM EST Stress incontinence, female URINALYSIS WITH REFLEX CULTURE Routine 01/08/2015 10:00 AM EST Stress incontinence, female documented in this encounter Results * (ABNORMAL) POCT urine dipstick (01/08/2015 10:40 AM EST) POC Sp [place] 1.015 1.002 - 1.030 POC pH, UA 6.0 5.0 - 8.5 POC Leuk, UA Trace Negative - Negative POC Nitrite, UA Negative Negative - Negative POC Protein, UA Negative Negative - Negative mg/dL POC Glucose, UA Negative Normal - Normal mg/dL POC Ketone, UA Negative Negative - Negative POC Urobil, UA Negative 0.2 - 1.0 mg/dL POC Bili, UA Negative Negative - Negative POC Blood, UA Positive(A) Negative - Negative oscar/uL Comment:~50 01/08/2015 10:4 0 AM EST Osmar Antoine DO POINT OF CARE TEST ORDERABLES * (ABNORMAL) Urinalysis with reflex Culture (01/08/2015 10:00 AM EST) Glucose, Urine Dipstick Negative Negative mg/dL CERNER MILLENNIUM Protein, Urine Dipstick Negative Negative mg/dL CERNER MILLENNIUM Bilirubin, Urine Dipstick Negative Negative mg/dL CERNER MILLENNIUM Comment: Clinical correlation required for positive Urine Bilirubin results as false positive may occur with some drugs and drug related products. If a false positive is suspected a serum total bilirubin should be considered if clinically indicated. Urobilinogen, Urine Dipstick Normal Normal mg/dL CERNER MILLENNIUM pH, Urn (dipstick) 6.0 5.0 - 8.0 CERNER MILLENNIUM Blood, Urine Dipstick Small(A) Negative mg/dL CERNER MILLENNIUM Ketone, Urine Dipstick Negative Negative mg/dL CERNER MILLENNIUM Nitrite, Urine Dipstick Negative Negative CERNER MILLENNIUM Leukocytes, Urine Dipstick Negative Negative mcL CERNER MILLENNIUM Appearance, Urine Dipstick Clear Clear CERNER MILLENNIUM Specific [place] Urine Automated 1.016 1.002 - 1.030 CERNER MILLENNIUM Color, Urine Dipstick Yellow Yellow CERNER MILLENNIUM RBC, Urine 1 0 - 4 /HPF CERNER MILLENNIUM WBC, Urine 1 0 - 5 /HPF CERNER MILLENNIUM Bacteria, Urine Rare(A) None /HPF CERN ER MILLENNIUM Squamous Epithelial Cells, Urine 1 <=4 /HPF CERNER MILLENNIUM Reflex to Culture No CERNER MILLENNIUM Urine specimen obtained by clean catch procedure (specimen) 01/08/2015 10:00 AM EST 01/08/2015 3:34 PM EST Narrative Resulting Agency Comment Spec In Lab Christopher T Vogt DO URINE ORDERABLES [facility] documented in this encounter Visit Diagnoses Diagnosis Stress incontinence, female- Primary Female stress incontinence Allergic rhinitis, unspecified allergic rhinitis type Sleep apnea Unspecified sleep apnea Constipation, unspecified constipation type documented in this encounter
--- OUTSIDE RECORDS SUMMARY | 2023-10-04 01:08 | XMS_ITS | Encounter Summary ---
[place] [address] Care Team Providers Care Estate Administrator Name Role Phone Unavailable Primary Care Provider Unavailabl e Encounter Details Date Type Department Care Team (Late st Contact Info) Description 05/06/2015 Abstract [facility] Information Services [address] [place] [address] [place] [phone] Provider, His [place] MD Social History Tobacco [...] Taken Comments Blood Pressure - - Pulse 115 05/06/2015 1:00 PM EST [facility] ed from [place] Conversion Temperature - - Respiratory Rate - - Oxygen Saturation - - Inhaled Oxygen Concentration - - Weight - - Height - - Body Mass Index - - documented in this encounter Plan of Treatment Not on file documented as of this encounter Visit Diagnoses Not on filedocumented in this encounter
--- OUTSIDE RECORDS SUMMARY | 2023-10-04 01:08 | XMS_ITS | Encounter Summary ---
[place] [address] Care Team Providers Care Advanced Manufacturing Engineer Name Role Phone Unavailable Primary Care Provider Unavailabl e Reason for Visit * Reason Onset Date Comments Questions 03/30/2015 Encounter Details Date Type Department Care Team (Late st Contact Info) Description 03/30/2015 Telephone Obstetrics [place] [phone] Sabino Landa, RN Questions Social History Tobacco Use Types Packs/Day Years [...] as of this encounter Miscellaneous Notes * Addendum Note - Sabino Landa RN - 03/30/2015 9:22 AM ESTAddended by: SABINO LANDA on: 03/30/2015 09:22 AM Modules accepted: Orders * Telephone Encounter - Sabino Landa RN - 03/30/2015 9:21 AM EST Addendum: Received a message back from Dr Griffith who has changed the dose to Oxybutynin ER 10 mgdaily. Prescription sent to pharmacy as requested and message left for patient regarding dose change. * Telephone Encounter - Sabino Landa RN - 03/30/2015 8:47 AM EST Caller: Patient Learning Needs Assessment Reviewed: Yes Subjective Patient presents with: Questions Objective/Assessment Patient takes Oxybutynin for stress incontinence. She takes one 5 mg tablet atbedtime. For the first week the urgency improved but now it is back to the same, urgency, frequencyand leaking urine. She is calling to see if she should change to another medication or have the dose adjusted for the Oxybutynin. Symptom onset:Ongoing Location:Bladder Duration:NA Characteristics:Stress inconitnence Aggravating factors:NA Relieving factors:NA Timing:NA Severity:NA Pertinent Past Medical History:Stress incontinence Plan Intervention/Plan/ Follow Up: Advised I will send a message to Dr Griffith regarding her questionsand call her back.She has an appointment in a week for follow up. documented in this encounter Plan of Treatment Not on file documented as of this encounter Visit Diagnoses Not on filedocumented in this encounter
--- OUTSIDE RECORDS SUMMARY | 2023-10-04 01:08 | XMS_ITS | Encounter Summary ---
[place] [address] Care Team Providers Care Rider Ticket Worker Name Role Phone Unavailable Primary Care Provider Unavailabl e Encounter Details Date Type Department Care Team ([facility] st Contact Info) Description 05/07/2015 9:10 AM EST Office Visit Primary Care [place] [address] [place] [phone] Feli Segura DO [address] [place] [address] Social History Tobacco Use Types Packs/Day Years [...]
--- OUTSIDE RECORDS SUMMARY | 2023-10-04 01:08 | XMS_ITS | Encounter Summary ---
[place] [address] Care Team Providers Care Wire Lather Name Role Phone Unavailable Primary Care Provider Unavailabl e Encounter Details Date Type Department Care Team (Late st Contact Info) Description 03/02/2015 9:00 AM EST Office Visit Sleep Center at [facility] [address] [place] [address] Alexis Sanabria MD [facility] [place] [address] YAHIR (obstructive sleep apnea) Social History Tobacco [...] Sign Reading Time Taken Comments Blood Pressure 102/70 03/02/2015 9:13 AM EST Pulse 101 03/02/2015 9:13 AM EST Temperature - - Respiratory Rate - - Oxygen Saturation 98% 03/02/2015 9:13 AM EST Inhaled Oxygen Concentration - - Weight - - Height 165.1 cm (5' 5) 03/02/2015 9:13 AM EST Body Mass Index - - documented in this encounter Progress Notes * Alexis Sanabria MD - 03/09/2015 9:58 AM EST Sleep Medicine Evaluation Note Author: Marbin Sanabria MD Sleep Medicine Patient Name: Emilee Bernal Date of : 1970 Date of Service: Monday03/02/2015 HPI: Emilee Bernal is a 44 y/o woman seen at the request of Cody Patton MD for advice regarding ongoing symptoms of YAHIR. Referral documentation has been reviewed and is notable for snoring and gasp awakenings. Review and Summary of Records: 08/25/06 diagnostic PSG: - AHI 17 ([facility] AHI 5.3), worse supine - Min SpO2 87% - Weight 137 lbs 09/29/06 CPAP titration: - Pressures 4 to 12 tested - Sats well-maintained - Auto CPAP 5-16 cmH2O initiated - Weight 137 lbs 12/22/06 ENT surgery: septoplasty, inferior turbinate reductions, tonsillectomy, UPPP Interval History Patient reports chief concern for residual YAHIR. Apparently a follow-up sleep study was recommended post-UPPP in 2006 but was not approved by her insurer at the time. Ongoing symptoms include interrupted sleep, non-restorative sleep, and daytime sleepiness. These symptoms occur in the context of mood disorder with prominent depression. She used CPAP therapy for a period of 1-2 months prior to the UPPP, but does not recall benefit. CC: daytime tiredness Quality: sleepiness Severity: [place] 17/24 Timing: when sedentary Context: mood disorder, suspected YAHIR Associated signs and symptoms: see below PAP Therapy: (not currently using) Treatment: CPAP Interface: started with nasal pillows, then full face mask (preferred full face) Pressure: okay Leak: no HCC: [facility] in [place] Patient perceived outcome: doesn???t recall benefit Sleep Related Breathing: Snoring: yes, loud snoring has been reported Observed Apneas: no Mouth Breathing: yes Dry Mouth: yes, always Nocturnal Gasping: yes Nasal Obstruction: yes, allergic congestion Weight: patient refused weight measurement today - 137 lbs for 2006 testing - 177 lbs documented in EMR on 01/08/15 Sleep Pattern: Location: bed in bedroom Bed/Recliner/Wedge: flat # of pillows under head: 2 Position: lateral and supine Bedtime: no later than 10 PM Latency: with medications no problem Awakenings: usually 1-2 times Reason: unsure Duration: varies from 15 min to 60 min+ Wake time: 5:45 AM for work, 9:30-10 AM on days off (still tired) Sleep window: 8-12 hours Estimated hours of sleep per night: hard to say DINH: 20 - moderate Daytime Symptoms: [place]: 17 Upon Awakening: not rested Daytime fatigue/sleepiness: always Naps: yes, 5/7 days, 2 hours on average, variably refreshing Involuntary Dozing: yes (when sedentary) Cognitive Symptoms: + memory and attention concern Driving: + drowsiness Close calls related to sleepiness: yes Accidents related to sleepiness: no She has pulled over to nap in the past, and found this helpful. Drowsy driving safety was thoroughly reviewed. Sleep ROS: Parasomnias: Sleep Walking: occurred as a medication side effect (zolpidem) Dream Enactment: no Bruxism: yes, dentist has mentioned; has bite guard but doesn???t wear Motor: RLS: in the past PLMS: unsure Past/Childhood Sleep History: as outlined above Family History: - no sleep disorders to her knowledge Past Medical History: Active Ambulatory Problems Diagnosis Date Noted ??? Allergic rhinitis 08/02/2010 ??? Back pain 02/05/2013 ??? Work related injury 12/06/2013 ??? PTSD (post-traumatic stress disorder) 12/13/2013 ??? Bipolar disorder 12/13/2013 ??? Overactive thyroid gland 12/13/2013 ??? Fibromyalgia 12/13/2013 ??? Hypothyroidism ??? Vitamin B 12 deficiency ??? Sleep apnea ??? LSIL (low grade squamous intraepithelial lesion) on Pap smear 01/26/2014 ??? DDD (degenerative disc disease), lumbar 03/28/2014 ??? Low back pain 03/28/2014 ??? Polyp of colon, adenomatous 04/15/2014 ??? Thyroid nodule 04/15/2014 ??? Neck pain, chronic 06/10/2014 ??? Vitamin D deficiency 07/22/2014 ??? Stress incontinence, female 01/08/2015 Resolved Ambulatory Problems Diagnosis Date Noted ??? Food allergy 08/02/2010 Past Medical History Diagnosis Date ??? Lower back injury 02/05/2013 ??? Environmental allergies ??? Degenerative disc disease ??? Allergic state ??? Depression ??? Gestational diabetes ??? Anxiety ??? Lyme disease ??? Fibrocystic breast disease ??? Thyroid disorder Past Surgical History: Past Surgical History Procedure Laterality Date ??? Mastectomy, partial ??? Rotator cuff repair Left 2009 ??? Septoplasty Nov 2006 tonsils and upper palate reshaping ??? Endometrial ablation ??? Cholecystectomy ??? Tubal ligation ??? Colposcopy 07/30/13 ??? Thyroidectomy, partial 02/09 ??? Tonsillectomy Nov 2006 ??? Uvulopalatopharygoplasty Nov 2006 Noted Medications: Lamotrigine 100 mg 1 tab TID [place] 300 mg 1 cap nightly Trazodone 100 mg 1 tab nightly Hydroxyzine 25 mg 1 tab nightly Nasonex daily Diphenhydramine 25 mg 1-2 tabs PRN (once q2-3 months, more in summer) PCP: Feli Segura DO Social History: Lives in [place], [place] with , step-son, occasionally daughter, and step- daughter [id number]. 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 Affect: full range PE: General: NAD Filed Vitals: 03/02/15 0913 BP: 102/70 Pulse: 101 Height: 165.1 cm (5' 5) SpO2: 98% Eyes: Conjunctivae: clear EOM: intact ENT: MP: 4/4 Facial deformity: no Hard palate: normal Soft palate: low Gums and teeth: intact Tongue: normal, + lateral ridging Nares: patent Pul: Respirations: even and unlabored Auscultation: deferred Neck/Lymphatics: Lymphadenopathy: none Masses: none Circumference: 14.75 in Cardiac: LE edema: none Neuro: no focal deficits; no tremor Musculoskeletal: Gait and stance: stable without assistance Labs: Recent labs have been reviewed. Assessment: Emilee Bernal is a 44 y/o woman seen at the request of Cody Patton MD for advice regarding ongoing symptoms of YAHIR. I agree that symptoms of loud snoring, excessive daytime sleepiness, sleep-related headaches, nocturnal gasping, and mid-cycle awakenings are strongly suspicious for persistent YAHIR. The pathophysiology of, the reasons to treat and treatment options for obstructive sleepapnea were all reviewed with the patient today. Potential consequences of untreated YAHIR were discussed. I recommend a diagnostic PSG to assess for residual YAHIR and patient is amenable to this plan. Patient confirms that study results can be called to [phone] (mobile) and a detailed message left if they are not available for call. Patient prefers sleep testing [facility] ([facility] schedule permits[facility] [place] [place] Regarding chief concern of sleepiness, we will assess for and treat YAHIR first. If residual sleepiness, would consider effect of medications, depression, or residual sleepiness in the setting of YAHIR -for which wake-promoting medication could be considered. Driving safety was thoroughly reviewed. Diagnosis: - YAHIR Recommendations: - PSG to assess for residual YAHIR - driving safety was reviewed with patient; if she feels too sleepy to drive she knows not to drive; if she becomes sleepy while driving she will lathe puller and nap Marbin Sanabria MD Sleep Medicine CC: MD Feli Hartamnn DO documented in this encounter Plan of Treatment Not on file documented as of this encounter Visit Diagnoses Diagnosis YAHIR (obstructive sleep apnea) Obstructive sleep apnea (adult) (pediatric) documented in this encounter
--- OUTSIDE RECORDS SUMMARY | 2023-10-04 01:08 | XMS_ITS | Encounter Summary ---
[place] [address] Care Team Providers Care Planning Feeder Name Role Phone Unavailable Primary Care Provider Unavailabl e Encounter Details Date Type Department Care Team ([facility] st Contact Info) Description 06/11/2015 11:10 AM EDT Office Visit Primary Care [place] [address] [place] [phone] Feli Segura DO [address] [place] [address] Social History Tobacco Use Types Packs/Day Years [...]
--- OUTSIDE RECORDS SUMMARY | 2023-10-04 01:08 | XMS_ITS | Encounter Summary ---
Author Organization [facility] [place] [address] Care Team Providers Care Pet Store Merchandiser Name Role Phone Unavailable Primary Care Provider Unavailabl e Reason for Visit * Reason Comments Other Encounter Details Date Type Department Care Team (Late st Contact Info) Description 06/02/2015 Telephone Psychiatry [place] [phone] Cody Patton MD [facility] [place] [address] Social History Tobacco Use Types Packs/Day Years [...] Telephone Encounter - Cody Patton MD - 06/02/2015 1:27 PM EDT Patient has found pharmacy to provider her with the medication * Telephone Encounter - Cody Patton MD - 06/02/2015 1:27 PM EDT ----- Message from Tessie Barfield sent at 06/02/2015 1:18 PM EDT ----- Regarding: Medication Pt just called and stated to ignore the first message she sent because she found a pharmacy that was reasonable and she is all set for now documented in this encounter Plan of Treatment Not on file documented as of this encounter Visit Diagnoses Not on filedocumented in this encounter
--- OUTSIDE RECORDS SUMMARY | 2023-10-04 01:08 | XMS_ITS | Encounter Summary ---
Author Organization [facility] [place] [address] Care Team Providers Care Plater Printed Circuit Board Panels Name Role Phone Unavailable Primary Care Provider Unavailabl e Encounter Details Date Type Department Care Team (Late st Contact Info) Description 07/13/2015 9:00 AM EDT Office Visit Psychiatry [place] [phone] Usman Crowder MD [facility] [place] [address] Bipolar 2 disorder; PTSD (post-traumatic stress disorder); Encounter for long-term (current) drug use Social [...] Sign Reading Time Taken Comments Blood Pressure 111/66 07/13/2015 9:00 AM EDT Pulse 98 07/13/2015 9:00 AM EDT Temperature - - Respiratory Rate - - Oxygen Saturation - - Inhaled Oxygen Concentration - - Weight 78 kg (172 lb) 07/13/2015 9:00 AM EDT Height 165.1 cm (5' 5) 07/13/2015 9:00 AM EDT Body Mass Index 28.62 07/13/2015 9:00 AM EDT documented in this encounter Progress Notes * Kylee Murray MD - 07/19/2015 3:45 PM EDT PSYCHIATRY TEACHING PHYSICIAN INVOLVEMENT Location: Office Attending Physician: Kylee Murray MD Resident name: Usman Crowder MD I saw and evaluated the patient with the above named resident/ See their note for details. I reviewed the patient's history during the visit and I agree with the details as written. My exam confirms the resident's findings. The assessment and plan were formulated in discussion with me and I agree with them as documented. Major issues addressed/discussed: Ms. Bernal had asked for a change in doctors. This was her first visit with Dr. Crowder. She continues to search for a therapist and was encouraged to recontact [facility]. Shereports a persistently unstable mood, chronic pain (lumbar disc, fibromyalgia), impaired sleep. Shehad a sleep consultation but could not afford the full work-up. We reviewed recent medcation trialsParoxetine made her irritable, lithium caused her to slur her words, and she didn't like the way itmade her feel overall, even at lower doses. Lamotrigine has helped. She agreed to a plan that included increased lamotrigine, stepwise, to 400 mg daily, targeting mood stabilizaion, increased trazodone targeting sleep. In addition we will check levels of lamotrigine , B12, and folate. Additional comments: none. * Usman Crowder MD - 07/13/2015 9:05 AM EDT ESTABLISHED ADULT PATIENT OFFICE VISIT NOTE Time Spent: 30 min Attendee(s): pt This patient was seen with Dr. Kylee Murray. See her note for confirmatory and/or revisionary documentation. HISTORY Chief Complaint: Emilee Bernal is a 44 y.o. Female presents today for medication management/follow up HPI: () Patient is seen today in transfer from Dr. Cody Patton. Patient reports that since January she stopped her low-dose lithium because it wasn't doing anything, I was getting very reed. She reports she has subsequently increased from 300 to 350 mg of lamotrigine, and feels that the meds help. However, she continues to struggle with occasional depressive episodes, most recently a few weeks ago. She reports that episode is now resolved and she feels ok today. She denies any recent manic/hypomanic symptoms, irritability, impulsivity, or decreased need for sleep. Sleep remains a prominent concern for her, as she is still having significant problems there, but hopes that once [facility] merg[facility] her insurance will cover a sleep study (which was recommended back in February). She states she has not been having suicidal thoughts/self-injurious behaviors. She denies that her PTSD symptoms are currently active. Quality: all over the place Severity: mod Duration: chronic Timing: daily Context: no longer on lithium Modifying factors: feels lamotrigine has helped Associated S&S: insomnia Most recent PHQ9: PHQ9 07/08/2015 Little interest or pleasure Several days Down, depressed, hopeless Several days Trouble sleeping Nearly every day Tired or no energy Nearly every day Poor appetite or overeating Several days Feeling like a failure Several days Trouble concentrating (newspaper) More than half the days Moving or speaking slowly Several days Would be better off Not at all PHQ9 Scores 13 (Moderate Depression) Current Medications: Current Outpatient Prescriptions Medication Sig Dispense Refill ??? fexofenadine (PAULIE) 180 mg Tablet Take 180 mg by mouth daily. ??? lamoTRIgine (LAMICTAL) 25 mg Tablet Take 2 tablets by mouth nightly. Take with other lamotrigine tablets for total of 350 mg daily. PCP to fill in future. 60 tablet 1 ??? lamoTRIgine (LAMICTAL) 100 mg Tablet Take 1 tablet by mouth 3 times daily. 90 tablet 2 ??? traZODone (DESYREL) 100 mg Tablet Take 1 tablet by mouth nightly. 30 tablet 2 ??? hydrOXYzine (ATARAX) 25 mg Tablet Take 1 tablet by mouth nightly. 30 tablet 2 ??? meloxicam (MOBIC) 15 mg Tablet TAKE 1 TABLET BY MOUTH DAILY 30 tablet 4 ??? mometasone (NASONEX) 50 mcg/actuation [place], Non-Aerosol 2 sprays by Nasal route 2 times daily.17 g 5 ??? diphenhydrAMINE (BENADRYL) 25 mg capsule Take 25-50 mg by mouth as needed. ??? EPINEPHrine (EPIPEN) 0.3 mg/0.3 mL (1:1,000) Auto-Injector Inject 0.3 mLs into the muscle once as needed. (Patient not taking: Reported on 07/13/2015) 1 each 1 No current facility-administered medications for this visit. 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 Vital Signs: Blood pressure 111/66, pulse 98, height 165.1 cm (5' 5), weight 78 kg (172 lb). Musculoskeletal System ? Muscle Strength/Tone (note atrophy, abnormal movements): no abnormalities noted ? Gait and Station: WNL Psychiatric System ? General Appearance/Behavior: female patient, appearing stated age, appropriately groomed/dressed,interactive/cooperative with with appropriate eye contact. ? Speech: normal volume/rate/prosody ? Thought Process: linear/coherent and goal-directed ? Associations: tight ? Abnormal Thoughts and Perceptions / Thought Content: Homicidality / Violent Thoughts: none reported/elicited Suicidality: none reported/elicited Hallucinations: none reported/elicited Delusions: none reported/elicited Obsessions: none reported/elicited ? Judgment and Insight: fair ? Mood & Affect: ok/affect is reactive and appropriate to content ? Orientation: x3 ? Attention/Concentration: alert/attentive and without need for redirection ? Memory: grossly intact to recent/remote events ? Language: fluent ? Fund of Knowledge: average Psychotherapeutic Interventions and Response: n/a MEDICAL DECISION MAKING ASSESSMENT: Emilee Bernal is a 44 y.o. Female with BPAD II, PTSD. Her symptoms are minimally improved. She continues to report intermittent depressive episodes, but no report of recent SI or self-injurious behaviors or hypomania. No acute safety concerns were identified during this appointment. Patient is primarily interested in finding some medications that will help reduce her mood lability and help her sleep. Discussed that as this was the first appointment this insurance writer had with this patient, would not plan to make any significant med changes at this time, but would encourage her to be incontact with [facility] for therapy (she had called them once before, but didn't ever end up speaking to an yone). She also was told that she wasn't sick enough to be seen there. Today she agrees to contact them again. Will plan to increase her lamotrigine to 400 mg, and also increase trazodone to 150 mg (with additional 50 mg after an hour if ineffective). Will plan to check lamotrigine level and folate levels today (to make sure she is getting adequate blood levels). Patient had her last dose of lamotrigine approximately 12 hrs prior to going to the lab. PLAN: Continue current medications with the following adjustments; Increase lamotrigine to 200 mg BID Increase trazodone to 150 mg nightly (with additional 50 mg after 1 hr if ineffective) Labs: lamotrigine level, folate level (patient reports she has recently had TSH which was normal) Patient to contact [facility] for therapy RTC in 6-8 weeks. Patient Instruction/Education provided: Patient provided written and verbal instructions regarding treatment plan. Patient understands the plan? Yes documented in this encounter Plan of Treatment Not on file documented as of this encounter Procedures Procedure Name Priority Date/Time Associated Diagnosis Comments LAMOTRIGINE LVL Routine 07/13/2015 10:10 AM EDT FOLATE, SERUM Routine 07/13/2015 10:10 AM EDT Encounter for long-term (current) drug use documented in this encounter Results * Lamotrigine Lvl (07/13/2015 10:10 AM EDT) Lamotrigine Lvl (JUNE) 5.8 2.5 - 15.0 mcg/mL [facility] Comment: Test Performed by: [employer] [address], [place], [place] [address] Utility Assembler: Brisa Angeles, Ph.D. Blood specimen (specimen) 07/13/2015 10:10 AM EDT 07/13/2015 11:45 AM EDT Narrative Resulting Agency Comment Spec In Lab Kylee Murray MD LAB SEND OUT ORDERAB LES Performing Organization Address City/[facility]/ZIP Co de Phone Number [facility] [place] [address] * Folate, serum (07/13/2015 10:10 AM EDT) Folate >20.0 4.6 - 34.8 ng/mL [facility] Blood specimen (specimen) 07/13/2015 10:10 AM EDT 07/13/2015 10:15 AM EDT Narrative Resulting Agency Comment Spec In Lab Kylee Murray MD CHEMISTRY ORDERABLES Performing Organization Address City/[facility]/ZIP Co de Phone Number [facility] [place] [address] documented in this encounter Visit Diagnoses Diagnosis Bipolar 2 disorder Other bipolar disorders PTSD (post-traumatic stress disorder) Posttraumatic stress disorder Encounter for long-term (current) drug use Encounter for long-term (current) use of other medications documented in this encounter
--- OUTSIDE RECORDS SUMMARY | 2023-10-04 01:08 | XMS_ITS | Encounter Summary ---
Author Organization [facility] [place] [address] Care Team Providers Care Thread Reeler Name Role Phone Unavailable Primary Care Provider Unavailabl e Encounter Details Date Type Department Care Team (Late st Contact Info) Description 03/18/2015 Telephone Psychiatry [place] [phone] Cody Patton MD [facility] [place] [address] Social History Tobacco Use Types Packs/Day Years [...] Telephone Encounter - Cody Patton MD - 03/18/2015 12:19 PM EST I received an email and telephone call from the patient today requesting that she be able to continue getting her care through our clinic but through a different provider. She reports that [facility] declined her eligibility of services through them. I agree that she would be appropriate for seeing a different provider at our clinic and staff messaged my support of the plan to the central access team and the regular schedulers. She did not endorse any other concerns at present (medication, safety, etc.), had no other requests with which I could help, and was satisfied with the progress so far. I explained that given that she is transferring providers I was not certain whetherthe schedulers or the central access would process the change, of which she voiced understanding. Iwill be happy to continue to write medication prescriptions in the interim until she is able to seeher new provider here, or her PCP may do so as well. I spoke with her a second time later in the day to ensure that she had no current needs of refills,safety concerns (thoughts of harm to self or others), and that she was aware of our crisis line andmy willingness to continue meeting with her either for the nursing home or for a temporary basis, but would respect her decision whatever she chooses. She voiced understanding and opted to have her PCP prescribe for her in the interim while awaiting a new provider here. I informed her that if she has not heard from our office in two days that she ought to call to ensure that her case has not been overlooked. I am also placing another referral for a provider to help ensure that the patient's case gets processed to a provider quickly. I sent her the following [facility] email as well: Julien Hebert, I'm glad that I was able to speak with you today and help in getting your care referred to a different provider as you have requested. I did want to make sure that you are aware that I am still happy to meet with you if you are willing, and happy to continue prescribing for you. We can continue on a short term basis while you await a different provider, or continue computer terminal operator care with me as your regular provider if you would like. I respect your decision either way and will be happy to assist however I can. Please feel free to contact me with any concerns at all. Best Regards, Cody Patton MD documented in this encounter Plan of Treatment Not on file documented as of this encounter Visit Diagnoses Not on filedocumented in this encounter
--- OUTSIDE RECORDS SUMMARY | 2023-10-04 01:08 | XMS_ITS | Encounter Summary ---
Author Organization [facility] [place] [address] Care Team Providers Care Lithoplate Maker Name Role Phone Unavailable Primary Care Provider Unavailabl e Reason for Visit * Reason Onset Date Comments Medication Refill 05/28/2015 Encounter Details Date Type Department Care Team (Late st Contact Info) Description 05/28/2015 Refill Psychiatry and [place]al [place] [phone] Daisha Frazier MD [facility] [place] [address] Social History Tobacco Use Types Packs/Day Years [...] encounter Miscellaneous Notes * Telephone Encounter - Daisha Frazier MD - 05/28/2015 10:46 AM EDTFrom: Emilee Bernal To: Daisha Frazier MD Sent: 05/28/2015 7:45 AM EDT Subject: Medication Renewal Request Original authorizing provider: MD Emilee SNOW would like a refill of the following medications: lamoTRIgine (LAMICTAL) 25 mg Tablet [DAISHA FRAZIER MD] Preferred pharmacy: [facility] [address] [place] [address] [address] Comment: documented in this encounter Plan of Treatment Not on file documented as of this encounter Visit Diagnoses Not on filedocumented in this encounter
--- OUTSIDE RECORDS SUMMARY | 2023-10-04 01:08 | XMS_ITS | Encounter Summary ---
Author Organization [facility] [place] [address] Care Team Providers Care Tube Machine Operator Helper Name Role Phone Unavailable Primary Care Provider Unavailabl e Encounter Details Date Type Department Care Team (Late st Contact Info) Description 05/10/2015 Abstract [facility] [address] [place] [phone] Provider, His Henrique MD Social History Tobacco [...] Associated Diagnosis Comments CBC (WITH DIFF) Routine 05/10/2015 9:15 PM EDT documented in this encounter Results * (ABNORMAL) CBC (with Diff) (05/10/2015 9:15 PM EDT) Baso Absolute 0.05(Exte rnal Lab) 0.0 - 0.2 THOUS [facility] RESULT CONVERSION Comment: Sourced from [facility] Conversion Basophil % 0.4(Exter nal Lab) 0.0 - 2.0 percent [facility] RESULT CONVERSION Comment: Sourced from [place] Conversion Eosinophils Abs 0.30(Exte rnal Lab) 0.0 - 0.8 THOUS [facility] RESULT CONVERSION Comment: Sourced from [facility] Conversion Eos % 2.7(Exter nal Lab) 0.0 - 7.0 percent [facility] RESULT CONVERSION Comment: Sourced from [facility] Conversion Immature Gran Absolute 0.02(Exte rnal Lab) 0.0 - 0.05 THOUS [facility] RESULT CONVERSION Comment: Sourced from [facility] [place] [facility] Conversion Immature Gran % 0.2(Exter nal Lab) 0.0 - 0.66 %/100 WBC [facility] RESULT CONVERSION Comment: Sourced from [place] [facility] Conversion Hematocrit 41.0(Exte rnal Lab) 37.0 - 47.0 percent [facility] RESULT CONVERSION Comment: Sourced from [facility] Conversion Hemoglobin 14.3(Exte rnal Lab) 12.0 - 16.0 g/dl [facility] RESULT CONVERSION Comment: Sourced from [facility] Conversion White Blood Cell 11.28(EXT ERNAL/ABN ) 4.8 - 10.8 THOUS [facility] RESULT CONVERSION Comment: Sourced from [facility] [place] [facility] Conversion Lymphocytes Abs 5.06(Exte rnal Lab) 0.90 - 5.20 THOUS [facility] RESULT CONVERSION Comment: Sourced from [facility] Conversion Lymph % 44.9(Exte rnal Lab) 19.0 - 48.0 percent [facility] RESULT CONVERSION Comment: Sourced from [place] [facility] Conversion Mean Cell Hemoglobin 29.1(Exte rnal Lab) 27 - 31 pg [facility] RESULT CONVERSION Comment: Sourced from [place] [facility] Conversion Mean Cell Hemoglobin Concentration 34.9(Exte rnal Lab) 33 - 37 g/dl [facility] RESULT CONVERSION Comment: Sourced from [place] [facility] Conversion Mean Cell Volume 83.3(Exte rnal Lab) 81 - 99 FL [facility] RESULT CONVERSION Comment: Sourced from [place] [facility] Conversion Monocyte Abs 0.86(Exte rnal Lab) 0.16 - 1.00 THOUS [facility] RESULT CONVERSION Comment: Sourced from [facility] [place] Conversion Monocyte % 7.6(Exter nal Lab) 3.4 - 9.0 percent [facility] RESULT CONVERSION Comment: Sourced from [facility] Conversion Mean Platelet Volume 8.6(Exter nal Lab) 7.2 - 11.1 FL [facility] RESULT CONVERSION Comment: Sourced from [facility] [place] Conversion ANC 4.99(Exte rnal Lab) 1.90 - 8.00 THOUS [facility] RESULT CONVERSION Comment: Sourced from [place] [facility] Conversion Neutrophil % 44.2(Exte rnal Lab) 40.0 - 74.0 percent [facility] RESULT CONVERSION Comment: Sourced from [facility] Conversion NRBC Absolute 0.00(Exte rnal Lab) 0.0 - 0.012 THOUS [facility] RESULT CONVERSION Comment: Sourced from [facility] Conversion NRBC% auto 0.0(Exter nal Lab) 0.0 - 0.2 %/100 WBC [facility] RESULT CONVERSION Comment: Sourced from [place] [facility] Conversion Platelet 355(Exter nal Lab) 130 - 400 THOUS [facility] RESULT CONVERSION Comment: Sourced from [facility] Conversion Red Blood Cell 4.92(Exte rnal Lab) 4.2 - 5.4 MILLIONS [facility] RESULT CONVERSION Comment: Sourced from [facility] Conversion RDW coefficient of variation 13.2(Exte rnal Lab) 11.5 - 14.5 percent [facility] RESULT CONVERSION Comment: Sourced from [place] [facility] Conversion 05/10/2015 9:15 PM EDT His Henrique Provider HEMATOLOGY ORDERAB LES [facility] RESULT CONVERSION documented in this encounter Visit Diagnoses Not on filedocumented in this encounter
--- OUTSIDE RECORDS SUMMARY | 2023-10-04 01:08 | XMS_ITS | Encounter Summary ---
Author Organization [facility] Address [facility] [place] [address] Care Team Providers Care School Secretary Name Role Phone Unavailable Primary Care Provider Unavailabl e Encounter Details Date Type Department Care Team (Latest Contact Info) Description 11/10/2014 9:51 AM EDT - 11/10/2014 11:59 PM EDT Hospital [place] [address] Lisa Seals MD [facility] [place] [address] Vitamin D deficiency Discharge Disposition: Home Social History Tobacco Use [...] Sig Dispensed Refills Start Date End Date lamoTRIgine (LAMICTAL) 100 mg Tablet Take 1 tablet by mouth 3 times daily. 90 tablet 2 11/10/2014 02/10/2015 hydrOXYzine (VISTARIL) 25 mg Capsule Take 1 capsule by mouth nightly. 30 capsule 2 11/10/2014 11/28/2014 lithium (ESKALITH) 450 mg Tablet Sustained Release Take 1 tablet by mouth nightly. 30 tablet 2 11/10/2014 02/09/2015 traZODone (DESYREL) 100 mg Tablet Take 1 tablet by mouth nightly. Try 50 mg nightly, then 75 mg nightly if needed, then 100 mg nightly if needed (increase over two weeks) 30 tablet 2 11/10/2014 02/04/2015 PARoxetine (PAXIL) 20 mg Tablet Take 1 tablet by mouth nightly. 30 tablet 2 11/10/2014 02/09/2015 meloxicam (MOBIC) 15 mg Tablet TAKE 1 TABLET BY MOUTH DAILY 30 tablet 3 11/04/2014 03/08/2015 LORazepam (ATIVAN) 0.5 mg Tablet 0 07/17/2014 02/09/2015 VITAMIN D 50,000 unit Capsule 0 07/17/2014 02/09/2015 fexofenadine (PAULIE) 180 mg Tablet Take 1 tablet by mouth daily. 90 tablet 3 06/19/2014 01/08/2015 epiNEPHrine (EPIPEN) 0.3 mg/0.3 mL (1:1,000) injection Inject 0.3 mg into the muscle once as needed. 01/08/2015 diphenhydrAMINE (BENADRYL) 25 mg capsule Take 25-50 mg by mouth as needed. 08/02/2010 07/14/2020 Mometasone (NASONEX) 50 mcg/Actuation [place] 2 [place](s) each side, Nasal, Twice daily 02/12/2010 01/08/2015 documented as of this encounter Plan of Treatment Not on file documented as of this encounter Procedures Procedure Name Priority Date/Time Associated Diagnosis Comments VITAMIN D, 25-HYDROXY Routine 11/10/2014 10:09 AM EDT Vitamin D deficiency documented in this encounter Results * VIT D Total Evaluation (11/10/2014 10:09 AM EDT) Vitamin D Total 25 OH 63 30 - 100 ng/mL [facility] Comment: Deficient <10 ng/mL Insufficient 10 to 29 ng/mL Sufficient 30 to 100 ng/mL Potential Intoxication >100 ng/mL According to the [place] National Osteoporosis Foundation, Vitamin D concentrations >30 ng/mL are sufficient to protect bone health. ??The National Kidney Foundation has similarly stated that patients with Vitamin D concentrations <30ng/mL should be considered to be insufficient or deficient. http://Deal.com.sg/DHMCnatlkidneyfoundation http://Deal.com.sg/DHVitD The [employer] i[employer] Vitamin D Immunoassay detects both 25-OH Vitamin D2 and 25-OH Vitamin D3, but only a total Vitamin D concentration is reported. Blood specimen (specimen) 11/10/2014 10:09 AM EDT 11/10/2014 10:23 AM EDT Narrative Resulting Agency Comment Spec In Lab Lisa Seals MD CHEMISTRY ORDERABLE S Performing Organization Address City/State/[facility] Co de Phone Number [facility] documented in this encounter Visit Diagnoses Diagnosis Vitamin D deficiency Unspecified vitamin D deficiency documented in this encounter
--- OUTSIDE RECORDS SUMMARY | 2023-10-04 01:08 | XMS_ITS | Encounter Summary ---
Author Organization [facility] [place] [address] Care Team Providers Care Equine Dentist Name Role Phone Unavailable Primary Care Provider Unavailabl e Reason for Visit * Reason Comments Other Encounter Details Date Type Department Care Team (Late st Contact Info) Description 06/02/2015 Telephone Psychiatry [place] [phone] Cody Patton MD [facility] [place] [address] Social History Tobacco Use Types Packs/Day Years [...] Encounter - Cody Patton MD - 06/02/2015 12:27 PM EDT Called two times to try to connect with the patient. It is not clear exactly what she needs from the pharmacy. We have made extensive efforts to get her to be able to see Janak Leos in our department, but she has canceled three times citing cost as a prohibiting factor all three times (because of complications from her Medicaid management company). Because of this I sent one more refill recently at her request as an interim measure to seeing Dr. Leos. I also put isntructions on the medication that this is the last refill we would provide, and [facility]. I got no answer on her phone. I left a message instructing her that I would try to get in contact with her again to find out the nature ofthe present issue. I further warned her that if she has not been able to fill her prescription, as is indicated in my message from the dental secretary, and has therefore missed daily dosing of the medication that she must not resume the medication at full dose but will need to be titrated up once again from the initial dose of 25 mg (this due to risk of SJS). documented in this encounter Plan of Treatment Not on file documented as of this encounter Visit Diagnoses Not on filedocumented in this encounter
--- OUTSIDE RECORDS SUMMARY | 2023-10-04 01:08 | XMS_ITS | Encounter Summary ---
Author Organization [facility] [place] [address] Care Team Providers Care Telecommunications Line Mechanic Name Role Phone Unavailable Primary Care Provider Unavailabl e Encounter Details Date Type Department Care Team (Late st Contact Info) Description 04/27/2015 Telephone Psychiatry [place] [phone] Cody Patton MD [facility] [place] [address] Social History Tobacco Use Types Packs/Day Years [...] Telephone Encounter - Cody Patton MD - 04/27/2015 6:51 AM EST After discussing with attending, plan for increasing lamotrigine as described below. Julien Hebert, I've spoken with Dr. Murray, and since 400 mg is the FDA approved limit (usually reserved for seizures at that dose) we can increase your lamotrigine from 300 mg to 350 mg. The generic form of lamotrigine often needs to have a higher dose because it seems to be weaker than the brand name, so increasing the doses for depression is not unheard of. Since you are tolerating the medication well so far, a dose increase of 50 should probably not cause more side effects, but let us know if any side effects do arise, and if you develop a rash then ofcourse that would need to be seen at the emergency department immediately because it can be very dangerous. We will need to keep the medicine at that dose of 350 mg for at least two weeks. At that point we should consider whether the higher dose has helped and whether it is sufficient. If it has not helpedor is still not [facility], we could then do a blood draw to get a lamotrigine level at that point, because some people's bodies break down the medicine faster than the average person and that causes lower doses of the medicine in certain patients. Please be sure to schedule an appointment with Dr. Leos. As always, if you are having safety concerns such as thoughts of harming yourself please call the crisis line, 911, or go to the nearest emergency department. How are you taking the medication at this point? 100 mg in the morning and 200 mg at night, or 100 mg three times daily? Once you let me know how you're taking the medicine I will call in the rest of the prescription with instructions on when to take it. Hope all is well. Best Regards, Cody Patton MD documented in this encounter Plan of Treatment Not on file documented as of this encounter Visit Diagnoses Not on filedocumented in this encounter
--- OUTSIDE RECORDS SUMMARY | 2023-10-04 01:08 | XMS_ITS | Encounter Summary ---
Author Organization [facility] [place] [address] Care Team Providers Care Information Systems Manager Name Role Phone Unavailable Primary Care Provider Unavailabl e Reason for Visit * Reason Onset Date Comments Medication Refill 04/21/2015 Encounter Details Date Type Department Care Team ([facility] st Contact Info) Description 04/21/2015 Telephone Psychiatry and Behavioral [place] [phone] Daisha Frazier MD [facility] [place] [address] Medication Refill Social History Tobacco Use Types Packs/Day Years [...] Telephone Encounter - Daisha Frazier MD - 04/21/2015 4:21 PM EST Refilling lithium at 300 mg. Email correspondence with patient as below. Julien Hebert, I will renew the lithium 300 mg. As for the lamotrigine, the maximum dose when it is used for treatment of epilepsy can go up to doses of 400 mg. Usually 200 mg is the top dose recommended for bipolar depression, but we use it at 300 mg not infrequently (I have several patients at that dose). I have never seen it used over 300 mg for bipolar depression, but I have sent an email to Dr. Murray to check with her about whether increasing the lamotrigine would be reasonable and I will get back to you as soon as she responds. Best Regards, Daisha Frazier MD ===View-only below this line=== ----- Message ----- From: CODY GALINDO Sent: 04/20/2015 7:38 PM EST To: DAISHA FRAZIER MD Subject: RE: Non-Urgent Medical Question Hi Dr. Frazier. Thank you so much with all of your help in this matter, I can not even begin to express how grateful I am! I am hesitant to have a higher dosage of Dinwiddie because when I saw you last, we felt that it may have been overstimulating for me. On the higher dose, my words often slurred and I had a very hard time putting sentences together when having a conversation. At the dose that I am now taking, I occasionally have slurred speech and have little difficulty forming sentences while conversing. I am wondering something. I know that the maximum daily dosage for lamictal is 400mg and I am currently [id number]. Would it be safe to increase that instead of the Dinwiddie? Have a most splendid day. Cody Galindo documented in this encounter Plan of Treatment Not on file documented as of this encounter Visit Diagnoses Not on filedocumented in this encounter
--- OUTSIDE RECORDS SUMMARY | 2023-10-04 01:08 | XMS_ITS | Encounter Summary ---
Author Organization [facility] [place] [address] Care Team Providers Care Marking Machine Operator Name Role Phone Unavailable Primary Care Provider Unavailabl e Reason for Visit * Reason Onset Date Comments Medication Refill 04/20/2015 Encounter Details Date Type Department Care Team (Late st Contact Info) Description 04/20/2015 Refill Psychiatry [place] [phone] Cody Patton MD [facility] [address] Social History Tobacco Use Types Packs/Day Years [...]
--- OUTSIDE RECORDS SUMMARY | 2023-10-04 01:08 | XMS_ITS | Encounter Summary ---
[place] [address] Care Team Providers Care Insurance Sales Representative Name Role Phone Unavailable Primary Care Provider Unavailabl e Encounter Details Date Type Department Care Team (Late st Contact Info) Description 06/10/2015 Abstract [facility] Information Services [address] [place] [address] JABARI Duenas [phone] Provider, His Henrique MD Social History Tobacco [...] - - Weight 78 kg (172 lb) 06/10/2015 1:30 PM EDT Sourced from Henrique Conversion Height 165.7 cm (5' 5.25) 06/10/2015 1 :30 PM EDT Sourced from Henrique Conversion Body Mass Index 28.4 06/10/2015 1:30 PM EDT documented in this encounter Plan of Treatment Not on file documented as of this encounter Visit Diagnoses Not on filedocumented in this encounter
--- OUTSIDE RECORDS SUMMARY | 2023-10-04 01:08 | XMS_ITS | Encounter Summary ---
[place] [address] Care Team Providers Care Collator Hand Name Role Phone Unavailable Primary Care Provider Unavailabl e Encounter Details Date Type Department Care Team (Late st Contact Info) Description 04/23/2015 [place] [phone] Feli Segura, DO [address] [place] [address] Social History Tobacco Use Types Packs/Day Years [...] Name Priority Date/Time Associated Diagnosis Comments MAMMO 2D DIGITAL DIAG GIL WITH CAD RIGHT Routine 04/23/2015 9:20 AM EST documented in this encounter Results * Mammo Diag Gil Right (04/23/2015 9:20 AM EST) Anatomical Region Laterality Modality Breast Right Mammography 04/23/2015 9:20 AM EST Narrative 05/01/2015 11:38 AM EST External Results Rufina Duenas ADDENDED REPORT EXAMINATION: ??[facility] 8125 - GIL HD 3D/C DIAG UNI RT DIAGNOSIS: ?ADD. VIEWS RIGHT BREAST PARENC OTHER SPECIFIED DISORDERS OF B REASON: ? History of mammogram History of mammogram RESULT: ? Additional views of the right breast. ?? Date: 04/23/15. The scar is marked in this patient. There is a subtle degree of architectural distortion present related to that scar tissue. ??We do not have any prior films for comparison so work up on that basis is somewhat problematic. ??If these are not accessible it would appear as if ultrasound would be a useful next step to better categorize this process. CC and MLO projections as well as tomography were reviewed. ??The films were also reviewed with the RawFlow Computer Aided Detection System (Version 10.0). IMPRESSION: ? Subtle persistent architectural distortion in the upper segments of the right breast. ??This may simply be related to scarring from prior surgery. ?? However, we have no prior films for comparison. ??If these do not arrive and an addendum dictated, then I would proceed with additional imaging and this would be ultrasound and MRI likely. ?? So this remains Category 0; either old imaging will become available or additional imaging will be needed. ASSESSMENT: ? 0 - Incomplete: Need additional imaging information and/or prior mammograms for comparison. 04/29/15 ADDENDUM: ?I now have old films for comparison from [place], [place] and the scarring in the right breast appears to be stable and related to prior surgery. ??Hence, I would not recommend additional imaging at this point and this will revert to a Category 2 mammogram. ?? Routine yearly screening recommended. INTERPRETING PHYSICIAN:dexter RUIZ M.D. Apr 23 2015 ??9:36A ? TRANSCRIBED BY/DATE:dexter REINOSO ??on Apr 23 2015 11:02A ELECTRONICALLY AUTHORIZED BY: ? PREET RUIZ M.D. ? Mar ??4 2015 11:38A Procedure Note Preet Ruiz MD - 12/21/2016 External Results Rufina Duenas ADDENDED REPORT EXAMINATION: [facility] 8125 - GIL HD 3D/C DIAG UNI RT DIAGNOSIS: ADD. VIEWS RIGHT BREAST PARENC OTHER SPECIFIED DISORDERSOF B REASON: History of mammogram History of mammogram RESULT: Additional views of the right breast. Date: 04/23/15. The scar is marked in this patient. There is a subtle degree of architectural distortion present related to that scar tissue. We do not have any prior films for comparison so work up on that basis is somewhat problematic. If these are not accessible it would appear as ifultrasound would be a useful next step to better categorize this process. CC and MLO projections as well as tomography were reviewed. The filmswere also reviewed with the RawFlow Computer Aided Detection System (Version 10.0). IMPRESSION: Subtle persistent architectural distortion in theupper segments of the right breast. This may simply be related to scarringfrom prior surgery. However, we have no prior films for comparison. Ifthese do not arrive and an addendum dictated, then I would proceed withadditional imaging and this would be ultrasound and MRI likely. So this remains Category 0; either old imaging will become available or additionalimaging will be needed. ASSESSMENT: 0 - Incomplete: Need additional imaging informationand/or prior mammograms for comparison. 04/29/15 ADDENDUM: I now have old films for comparison from [place], [place] and the scarring in the right breast appears to be stable and related to prior surgery. Hence, I would not recommend additional imaging at this point and this will revert to a Category 2 mammogram. Routine yearly screening recommended. INTERPRETING PHYSICIAN:dexter RUIZ M.D. Apr 23 2015 9:36A TRANSCRIBED BY/DATE:dexter REINOSO on Apr 23 2015 11:02A ELECTRONICALLY AUTHORIZED BY: PREET RUIZ M.D. May 01 2015 11:38A Feli Segura DO IMG MAMMO ORDERABLE S documented in this encounter Visit Diagnoses Not on filedocumented in this encounter
--- OUTSIDE RECORDS SUMMARY | 2023-10-04 01:08 | XMS_ITS | Encounter Summary ---
Author Organization [facility] [place] [address] Care Team Providers Care Bakery Worker Name Role Phone Unavailable Primary Care Provider Unavailabl e Encounter Details Date Type Department Care Team (Late st Contact Info) Description 07/09/2015 Notes Only Obstetrics [place] [phone] Tram Moeller, RN Social History Tobacco Use Types Packs/Day Years [...] as of this encounter Progress Notes * Abundio Griffith MD - 07/09/2015 4:23 PM EDT Review of Bladder Diary Dates diary completed: 06/25/15, 06/26/15 and 06/27/15 Volume intake: 768 cc to 1182 cc Volume output: 1478 cc to 2040 cc Number of daytime voids: 6 to 11 Number of nocturia events: 1 to 3 Functional bladder capacity: 295 cc Nocturia Index: Number of leakage events per day: Pt did not document small/medium/large, pt stated she dribbled all day and went through 2 med pads each day. Pt did always have urge to go. Other notable findings (e.g. caffeine consumption, etc.) Coffee/wine 295 cc to 591 cc Impression: ?? Urinary incontinence, no improvement on oxybutynin, mirabegron. Plan: ?? Schedule urodynamic evaluation since bladder diary is unclear regarding the etiology. Definitions: ?? Nocturia index = nocturnal urine volume/functional bladder capacity; >2 identifies low nocturnal bladder capacity ?? Polyuria = >40cc/kg body weight ?? Nocturnal polyuria = nocturnal volume > 6.4cc/kg OR >35% of total 24 hr output volume ABUNDIO GRIFFITH MD Division of Female Pelvic Medicine & Reconstructive Surgery documented in this encounter Plan of Treatment Not on file documented as of this encounter Visit Diagnoses Not on filedocumented in this encounter
--- OUTSIDE RECORDS SUMMARY | 2023-10-04 01:08 | XMS_ITS | Encounter Summary ---
[place] [address] Care Team Providers Care Caustic Room Attendant Name Role Phone Unavailable Primary Care Provider Unavailabl e Encounter Details Date Type Department Care Team (Late st Contact Info) Description 05/10/2015 [place] [phone] Celestine Bauer MD EMERGENCY DEPT [address] [place] [id number] Social History Tobacco Use Types Packs/Day Years [...] Procedure Name Priority Date/Time Associated Diagnosis Comments CT CHEST W CONTRAST Routine 05/10/2015 1 0:58 PM EDT documented in this encounter Results * CT Chest w Contrast (05/10/2015 10:58 PM EDT) Anatomical Region Laterality Modality Chest Computed Tomogra phy 05/10/2015 10:5 8 PM EDT Narrative 05/11/2015 10:15 PM EDT External Results Rufina Duenas Final Report EXAMINATION: ??CT ??7991 - CT CHEST W/CONTRAST ??[id number] DIAGNOSIS: ?CHEST PAIN REASON: ? CP, tachycardia, r/o PE RESULT: ? CT chest. TECHNIQUE: ? 2 mm axial images through the chest were obtained ??after intravenous contrast as part of a PE protocol. FINDINGS: ? No comparison. ? The left lobe of the thyroid gland has been removed. There is no aortic aneurysm or dissection. Although the aorta is slightly brighter with contrast than the pulmonary arteries, there still appears to be good ??opacification without ??filling defects to suggest pulmonary emboli. ??No pulmonary artery enlargement. Small amount of residual thymic tissue. No pericardial or pleural effusion. No pathologic lymphadenopathy. 1-2 mm lower lobe dependent granuloma. ??No consolidation. In the upper abdomen, the patient is status post cholecystectomy. There is DISH of the thoracic spine with significant decrease in disc space height and even partial fusion, T8-9. IMPRESSION: ??No pulmonary embolus. No acute findings. INTERPRETING PHYSICIAN: ??JIMENA REDMOND M.D. May 11 2015 ??7:51A ? TRANSCRIBED BY/DATE: ?? SANZ on May 11 2015 ??3:59P ELECTRONICALLY AUTHORIZED BY: ?? JIMENA REDMOND M.D. ? May 11 2015 10:15P Procedure Note Jimena Redmond MD - 10/08/2016 External Results Rufina Duenas Final Report EXAMINATION: CT 7991 - CT CHEST W/CONTRAST [address]343 DIAGNOSIS: CHEST PAIN REASON: CP, tachycardia, r/o PE RESULT: CT chest. TECHNIQUE: 2 mm axial images through the chest were obtained after intravenous contrast as part of a PE protocol. FINDINGS: No comparison. The left lobe of the thyroid gland has been removed. There is no aortic aneurysm or dissection. Although the aorta is slightly brighter with contrast than thepulmonary arteries, there still appears to be good opacification without filling defects to suggest pulmonary emboli. No pulmonary artery enlargement. Small amount of residual thymic tissue. No pericardial or pleural effusion. No pathologic lymphadenopathy. 1-2 mm lower lobe dependent granuloma. No consolidation. In the upper abdomen, the patient is status post cholecystectomy. There is DISH of the thoracic spine with significant decrease in discspace height and even partial fusion, T8-9. IMPRESSION: No pulmonary embolus. No acute findings. INTERPRETING PHYSICIAN: JIMENA REDMOND M.D. May 11 2015 7:51A TRANSCRIBED BY/DATE: SANZ on May 11 2015 3:59P ELECTRONICALLY AUTHORIZED BY: JIMENA REDMOND M.D. May 11 2015 10:15P Celestine Bauer MD IMG CT ORDERABLES documented in this encounter Visit Diagnoses Not on filedocumented in this encounter
--- OUTSIDE RECORDS SUMMARY | 2023-10-04 01:08 | XMS_ITS | Encounter Summary ---
[place] [address] Care Team Providers Care Retail Assistant Manager Name Role Phone Unavailable Primary Care Provider Unavailabl e Encounter Details Date Type Department Care Team (Late st Contact Info) Description 03/18/2015 Telephone Psychiatry [place] [phone] Cody Patton MD [facility] [place] [address] Social History Tobacco Use Types Packs/Day Years [...] Encounter - Cody Patton MD - 03/18/2015 1:56 PM EST Call placed to patient, see prior note for full information documented in this encounter Plan of Treatment Not on file documented as of this encounter Visit Diagnoses Not on filedocumented in this encounter
--- OUTSIDE RECORDS SUMMARY | 2023-10-04 01:09 | XMS_ITS | Encounter Summary ---
[place] [address] Care Team Providers Care Appliance Sales Associate Name Role Phone Unavailable Primary Care Provider Unavailabl e Reason for Referral * Rehabilitation (Routine) - Closed Specialty Diagnoses / Procedures Referred By Contac t Referred To Contact Orthopaedics Diagnoses Left-sided low back pain without sciatica Bessy Corrigan DO [facility] [place] [address] [facility] [address] [place] [id number] Referral ID Status Reason Start Date Expiration Date V isits Requested Visits Authorized [id number] Closed Consult, Test & Treat 03/10/2014 03/10/2015 1 1 Reason for Visit * Reason Comments Back Pain Pain Management Encounter Details Date Type Department Care Team (Late st Contact Info) Description 03/10/2014 7:45 AM EST [place] [address] Bessy Corrigan V [facility] [place] [address] Left-sided low back pain without sciatica Discharge Disposition: Home Social History Tobacco Use Types Packs/Day Years Used Date Smoking Tobacco: Never Smokeless Tobacco: Never Sex and Gender Information Value Date Recorded Sex Assigned at Female 09/09/2020 10:10 PM EDT Gender Identity Female 09/09/2020 10:10 PM EDT Sexual Orientation Straight 09/09/2020 10 :10 PM EDT documented as of this encounter Last Filed Vital Signs Vital Sign Reading Time Taken Comments Blood Pressure 109/62 03/10/2014 8:18 AM EST Pulse 104 03/10/2014 8:18 AM EST Temperature - - Respiratory Rate 14 03/10/2014 8:18 AM EST Oxygen Saturation 100% 03/10/2014 8:18 AM EST Inhaled Oxygen Concentration - - Weight 81.6 kg (180 lb) 03/10/2014 8:18 AM EST Height 166.4 cm (5' 5.5) 03/10/2014 8:18 AM EST Body Mass Index 29.5 03/10/2014 8:18 AM EST documented in this encounter Progress Notes * Bessy Corrigan V, DO - 03/10/2014 8:28 AM EST Subjective: Patient ID: I have been requested by Dr. Garcia for my recommendation regarding the patient's low back pain. This is Emilee Abebe's follow up evaluation by our clinic. This is an established patient for me. History of Present Illness Major changes since the last evaluation None Status of her complaint(s) show no change Medication side effects Sedation with Tramadol and Flexeril Progress with previously stated goals None Injections/surgeries since last visit None. She has had LMBB at [place] without pain relief Imaging since the last visit None Lab work since the last visit None Review of Systems Her review of systems are unchanged. Objective: Physical Exam Constitutional: She appears well-developed and well-nourished. HENT/Head: Normocephalic. Cardiovascular: Normal rate. Pulmonary/Chest: Effort normal. Neurological: She is alert. Psychiatric: She has a normal mood and affect. Her behavior is normal. Her judgment and thought content are normal. LUMBAR SPINE EXAMINATION: Inspection: Tenderness to palpation at the left lower lumbar spine and left SIJ Range of motion: restricted with extension Left Right Muscle spasm/pain Yes Yes Sacroiliac joint tenderness Yes No Facet joint tenderness Yes No Luna's test (facet loading) Positive Negative Straight leg raise Negative Negative LOWER EXTREMITIES: MOTOR: Manual muscle testing to the bilateral lower extremities included evaluation of ankle plantarflexion, dorsiflexion of the 1st toe, dorsiflexion of the ankle, knee flexion, knee Extension, hip flexion, and Hip adduction. Pertinent positives: None SENSORY: Testing of sharp and dull sensation was completed to the bilateral L1- S2 dermatomal distributions. Pertinent positives: Non DEEP TENDON REFLEXES: Left Right Patellar reflex (L4) 2+ 2+ Achilles reflex (S1) 0+ 0+ HIP EXAMINATION: Left Right Range of motion unrestricted with internal and external rotation. unrestricted with internal and external rotation. Groin pain with range of motion? Negative Negative Trochanteric bursa tenderness? Positive Negative Psoas tenderness? Negative Negative Piriformis muscle tenderness Negative Negative Constitutional: Her vital signs were abnormal and reviewed with the patient. She is in no acute distress. Respiratory: there is no respiratory distress Cardiovascular: Increased heart rate Skin (to the painful area): normal Eyes: EOMI, no scleral icterus Psychological: uninterested Labs to be reviewed None Imaging to be reviewed None Urine Drug Screen confirmations reviewed None Assessment and Plan: ASSESSMENT Encounter Diagnosis Name Primary? Left-sided low back pain without sciatica DISCUSSION This is a 43 y.o. female who presents with continued complaint of low back pain with occasional symptoms into her left buttock and thigh (posterior). She complains of occasional weakness to the bilateral legs. Her symptoms of occasional numbness, tingling, and weakness to the bilateral legs is incon sistent at best. There are also no correlating findings on physical examination or lumbar spine MRI. She is currently using a gym membership provided by her work consultation care. She is currently not working. She takes Flexeril and tramadol occasionally at nighttime, but these make her very sleepy. We did discuss treatment recommendations at length. I recommended a functional evangelical program so that she could return to a higher level of physical functioning. She is only 43 years old and hopefully she can return to gainful employment in the near future. I have nothing else to offer her and I will see her as needed. TREATMENT PLAN After a thorough review of the history and physical examination, Ms. Abebe and I discussed the following options in detail: Recommended Diagnostic & Therapeutic modalities: ?? Physical therapy/exercise: I did recommend functional evangelical program today. I do not believe there are any injections there benefits of this patient. She has seen a spine surgeon in no spine surgery was recommended. She is made brief progress with physical therapy. We did discuss the functional evangelical program at length and she is very interested in this program. I did refer her for aGAP assessment. ?? Diagnostic testing/Lab work: I did review her lumbar spine MRI from 2012 which did not correlateto her current symptoms or signs on examination the ?? Interventional procedures: none recommended. She's had lumbar medial branch blocks in the past without results. Her examination is fairly benign except for pain all over the low back. This is mostlikely from her lumbar strain plus or minus from her fibromyalgia. ?? Medication(s): no medications prescribed today. Continue the tramadol and Flexeril with care. Weonce again discussed the risks/benefits/indication for the prescribed medication. ?? Referral(s): as stated above ?? Misc: I did complete her workers, station paperwork. She will see her occupational medicine physician this . Functional goals with the current and future treatment: 1) To be able to complete activities of daily living - Achieving 2) To be able to be active with friends and family - Achieving 3) To be able to take care of her home - Achieving 4) To be able to complete home exercises - Achieving 5) To be able to work - working on this Follow up: As needed Ms. Abebe and I reviewed all of the above recommendations using anatomical models. The patient understands the risks, benefits, and indications of these options. The patient will think about her options. Emilee may also discuss these recommendations with JERILYN DEAN MD so that she can cometo the best decision in terms of her treatment options. BESSY CORRIGAN DO, MPH ABPMR-subspecialty board certification in Pain Medicine Attending Physician-Pain Management documented in this encounter Plan of Treatment Scheduled Referrals Name Type Priority Associated Diagnoses Order Schedule Referral to GAP Assessment Outpatient Referral Routine Left-Sided Low Back Pain Without Sciatica Ordered: 03/10/2014 documented as of this encounter Visit Diagnoses Diagnosis Left-sided low back pain without sciatica documented in this encounter
--- OUTSIDE RECORDS SUMMARY | 2023-10-04 01:09 | XMS_ITS | Encounter Summary ---
[place] [address] Care Team Providers Care Director [employer] Name Role Phone Unavailable Primary Care Provider Unavailabl e Reason for Visit * Reason Comments Low Back Pain Encounter Details Date Type Department Care Team (Late st Contact Info) Description 03/28/2014 11:00 AM EST Office [place] [address] Lou Clinton, PT [facility] Midline low back pain without sciatica Social History Tobacco Use Types Packs/Day Years Used Date Smoking Tobacco: Never Smokeless Tobacco: Never Sex and Gender Information Value Date Recorded Sex Assigned at Female 09/09/2020 10:10 PM EDT Gender Identity Female 09/09/2020 10:10 PM EDT Sexual Orientation Straight 09/09/2020 10 :10 PM EDT documented as of this encounter Progress Notes * Lou Clinton PT - 03/28/2014 12:48 PM EST PHYSICAL THERAPY INITIAL EXAMINATION Date of First Exam/ First Treatment: 03/28/2014 Referring provider: Belinda Ch APRN Diagnosis: 1. low back pain 2. 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 She was seen with the expectation to see if there is anything that can be done from an exercise perspective to ease the pain and improve her ability to function. History of Present Illness: Ms. Abebe reports a history of episodic low back pain which began in 2006. 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 She reports picking up the package and twisting when she experienced acute onset of severe lowback and leg pain. Treatment since then has included chiropractic adjustments, physical therapy, medications, and injections. She notes that over time her symptoms have gradually improved. A recent MRI of the lumbar spine has revealed degenerative disc disease at L4-L5 and L5-S1. Ms. Abebe currently complains of low back pain with intermittent radiation to the left buttock. The pain is rated 1/10 at its least and 7/10 at its worst. She denies numbness, tingling, and weakness. Symptoms worsen with bending, sitting, and overdoing it. Symptoms ease when walking, lying down, or applying heat/ice to the low back. The pain is usually at its least in the morning and then worsens as the day progresses. She sleeps well at night. She denies a gait or balance disturbance. Ms. 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 Patient Active Problem List Diagnosis Code ??? Allergic rhinitis 477.9 ??? Back pain 724.5 ??? Work related injury 959.9 ??? PTSD (post-traumatic stress disorder) 309.81 ??? Bipolar disorder 296.80 ??? Overactive thyroid gland 242.90 ??? Fibromyalgia 729.1 ??? Hypothyroidism 244.9 ??? Vitamin B 12 deficiency 266.2 ??? Sleep apnea 780.57 ??? LSIL (low grade squamous intraepithelial lesion) on Pap smear 796.9 ??? DDD (degenerative disc disease), lumbar 722.52 ??? Low back pain 724.2 : Past Medical History Diagnosis Date ??? Lower back injury 02/05/2013 ??? Bipolar disorder ??? PTSD (post-traumatic stress disorder) ??? Fibromyalgia ??? Environmental allergies with anaphylaxis ??? Degenerative disc disease ??? Allergic state ??? Depression ??? Gestational diabetes ??? Anxiety ??? GERD (gastroesophageal reflux disease) ??? Graves disease ??? Lyme disease ??? Asthma ??? Fibrocystic breast disease : Past Surgical History Procedure Laterality Date ??? Mastectomy, partial ??? Rotator cuff repair Left 2009 ??? Septoplasty tonsils and upper palate reshaping ??? Endometrial ablation ??? Cholecystectomy ??? Tubal ligation ??? Colposcopy 07/30/13 : Social History: Ms. Abebe is a woman who lives in [place], [place]. 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 She does not use tobacco, drinks alcohol on occasion not involved in a structured exercise program. Physical Exam: Ms. Abbee is a pleasant 43 y.o. female who moves about in the exam room without difficulty and appears comfortable while seated. Sitting posture is poor and standing is good. Examination of the spine in the standing position reveals a normal lumbar lordosis and there is not a lateral shift of the lumbar spine on the pelvis. Active range of motion of the lumbar spine is limited to 95?? flexion and 25?? extension. Gait is unremarkable. She is able to heel/toe walk and squat fully.Slouched sitting worsens the pain while sitting fully erect lessens it. Abdominal and trunk extensor strength is 3/5. Repeated movement testing of the lumbar spine did not reveal a clear directional p reference toward extension. Physical Therapy Assessment: Ms. Abebe is a woman with a history of low back pain which is interfering with her ability to function. The physical exam is significant for reduced range of motion of the lumbar spine into extension, trunk musculature weakness, and a directional preference toward extension with movement testing. The history and exam is consistent with mechanical low back pain. I believe that these deficits can improve with physical therapy treatments directed to the low back consisting of instruction in mechanical self-care, posture correction, trunk musculature strengthening, and self mobilization exercises. Ms. Abebe has a good rehabilitation potential and I anticipate to me et with her today only since she is beginning in the job and is concerned about having to take timeoff. Treatment Plan: The natural history of mechanical low back pain and rational for exercise based treatment was reviewed. Ms. Abebe was given a home exercise program consisting of extension in lying or standing 6-8 times per day until pain free. Once pain free she will to progress these exercises toextension in lying twice daily and extension in standing as needed throughout the day. She was alsoprescribed plank, side lying, alternate arm and leg lift on all fours, superman, and alternate arm and leg lift in prone once daily and strongly encouraged to begin a structured walking program. Along with the prescribed exercises, we discussed the principles of symptom self monitoring and posture c orrection. Prior to departure she was given the Treat Your Own Back back booklet and encouraged to read it. She will call with any questions, concerns, or if the pain worsens. Ms. Abebe will return to [facility] for a follow up appointment as needed. Physical Therapy Goals in 4 weeks: 1. Independent with home exercise program 2. Able to sit without discomfort 3. Able to bend without discomfort 4. Return to work without restrictions The plan has been discussed with the patient and Emilee Abebe has agreed with the planned treatment. 55 minutes were spent interviewing, assessing, and instructing Emilee Abebe in a home exercise program. documented in this encounter Plan of Treatment Not on file documented as of this encounter Visit Diagnoses Diagnosis Midline low back pain without sciatica documented in this encounter
--- OUTSIDE RECORDS SUMMARY | 2023-10-04 01:09 | XMS_ITS | Encounter Summary ---
Author Organization [facility] [place] [address] Care Team Providers Care Playroom Attendant Name Role Phone Unavailable Primary Care Provider Unavailabl e Reason for Referral * Physical Therapy (Routine) - Closed Specialty Diagnoses / Procedures Referred By Contac t Referred To Contact Physical Therapy Diagnoses Neck pain, chronic Belinda Ch APRN [facility] [place] [address] [facility] [place] [address] Referral ID Status Reason Start Date Expiration Date V isits Requested Visits Authorized [id number] Closed Evaluate and Treat 06/10/2014 06/10/2015 12 12 Reason for Visit * Reason Comments Neck Pain Encounter Details Date Type Department Care Team (Late st Contact Info) Description 06/10/2014 7:35 AM EDT Office [place] [address] Belinda Ch [facility] [place] [address] Neck pain, chronic Discharge Disposition: Home Social History Tobacco Use [...] as of this encounter Progress Notes * Belinda Ch, AWAKE OVERNIGHT COUNSELOR - 06/10/2014 8:37 AM EDT Chief Complaint:left-sided neck pain with some radiation, minimally to the left upper arm. Subjective: Emilee is a patient last seen in February 2014 for low back pain symptoms.and Evaluation for participation in the functional amish program. 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 Sinceher last visit , symptoms haveimproved in the low back but she is now having left-sided neck pain that is extremely painful and limiting her ability to move her neck and causing headaches. Past treatments have included therapy, Response was good.she has also been started on MOBIC and is being monitored by her primary care provider because the MOBIC and the lithium can interact causing increased lithium levels. She is due for lithium level today. Medications and allergies were reviewed and updated. Review of systems is notable forheadache night sweats related to menopause, weight loss related to not eating and stress. and negative for current GI, or constitutional symptoms. Objective:this is a fit and healthy appearing female age 43. Her shoulders, hips, knees are grosslylevel to inspection. She is right-hand dominant. She can walk with a nonantalgic gait, can walk on heels and toes and tandem walk and single leg balance without difficulty. Shoulder range of motion is full and nonpainful. Cervical range of motion is reduced in all directions and painful. She has a negative Spurling's maneuver for reproduction of arm symptoms. She has normal strength, sensation, and reflexes. There is no Maki or clonus and Babinski with downgoing toes. In short a normal neurological exam. Review of her x-ray revealed possible ossified disc at C3-4. Assessment and plan:she may have some disc degenerative changes at C3-4 but currently her neck symptoms take precedence and not any radiation into the arms. Given this I would like her to see a physical therapist for some exercises to see if we can improve her flexibility and lessen her symptoms inher neck. If this does not seem to help but would consider an MRI and then a referral to an epidural steroid injection in the neck. She is moving in a couple months of the [facility] area and at that point time we could give her a physical therapy at [facility] and [facility] but at the present time she still in [place] and would like to see someone here. I declined to prescribe are normal but because of the monitoring of her lithium levels. I did give her a refill of the Flexeril which does seem to help her and she is only using at night. I will followup with her on an as-needed basis if she doesn't improve. All questions were answered This note was written with voice recognition software. documented in this encounter Plan of Treatment Scheduled Referrals Name Type Priority Associated Diagnoses Orde r Schedule Referral to Physical Therapy Outpatient Referral Routine Neck pain, chronic Ordered: 06/10/2014 documented as of this encounter Visit Diagnoses Diagnosis Neck pain, chronic Cervicalgia documented in this encounter
--- OUTSIDE RECORDS SUMMARY | 2023-10-04 01:09 | XMS_ITS | Encounter Summary ---
Author Organization [facility] Address [facility] [place] [address] Care Team Providers Care Registered Diet Technician Name Role Phone Dian Diaz Primary Care Provider + Reason for Visit * Reason Comments Medication Refill Encounter Details Date Type Department Care Team (Late st Contact Info) Description 11/04/2014 Refill Family Medicine at [address] [phone] Tiff Peng PA [facility] [place] [address] Social History Tobacco Use Types Packs/Day Years [...] encounter Miscellaneous Notes * Telephone Encounter - Alyssa Shoemaker MA - 11/04/2014 8:11 AM EDT Last office visit 10/17/14, no upcoming appts scheduled. Pended 30 with no refills as previously ordered. documented in this encounter Plan of Treatment Not on file documented as of this encounter Visit Diagnoses Not on filedocumented in this encounter Care Teams Registered Diet Technician Relationship Specialty Start Date End Date Dina Diaz PA [address] [place] [address] [place] [address] PCP - General Internal Medicine 05/26/20 documented as of this encounter
--- OUTSIDE RECORDS SUMMARY | 2023-10-04 01:09 | XMS_ITS | Encounter Summary ---
Author Organization [facility] [place] [address] Care Team Providers Care Intertype Operator Name Role Phone Unavailable Primary Care Provider Unavailabl e Reason for Visit * Reason Onset Date Comments Medication Refill 08/13/2014 Encounter Details Date Type Department Care Team (Late st Contact Info) Description 08/13/2014 Refill Family Medicine at [facility] [address] [place] [phone] Adilene Rubio CCMA Neck pain Social History Tobacco Use Types Packs/Day Years [...] encounter Miscellaneous Notes * Telephone Encounter - Adilene Rubio MA - 08/13/2014 12:21 PM EDT Pt is looking for refill of meloxicam, which I have pend. Last O/V 07/22/14 documented in this encounter Plan of Treatment Not on file documented as of this encounter Visit Diagnoses Diagnosis Neck pain Cervicalgia documented in this encounter
--- OUTSIDE RECORDS SUMMARY | 2023-10-04 01:09 | XMS_ITS | Encounter Summary ---
Author Organization [facility] Address [facility] [place] [address] Care Team Providers Care Outpatient Services Director Name Role Phone Unavailable Primary Care Provider Unavailabl e Encounter Details Date Type Department Care Team (Latest Contact Info) Description 11/10/2014 9:49 AM EDT - 11/10/2014 11:59 PM EDT Hospital [place] [address] Kylee Murray MD [facility] [place] [address] Depression Discharge Disposition: Home Social History Tobacco Use [...] needed. 08/02/2010 07/14/2020 Mometasone (NASONEX) 50 mcg/Actuation [place] 2 [place](s) each side, Nasal, Twice daily 02/12/2010 01/08/2015 documented as of this encounter Plan of Treatment Not on file documented as of this encounter Procedures Procedure Name Priority Date/Time Associated Diagnosis Comments LITHIUM LEVEL Routine 11/10/2014 10:09 AM EDT Depression COMPREHENSIVE METABOLIC PANEL Routine 11/10/2014 10:09 AM EDT Depression BASIC METABOLIC PANEL Routine 11/10/2014 10:09 AM EDT Depression documented in this encounter Results * [place] level (11/10/2014 10:09 AM EDT) [facility] [place] 0.22 mmol/L [facility] Comment: Therapeutic level for bipolar depression: 0.60-1.20 mmol/L Action Level: ?? Acute toxicity: ?>4.00 mmol/L ?? Chronic toxicity: ??>1.50 mmol/L Values greater than or equal to the action level necessitate clinical intervention. ??Values less than this level may necessitate intervention based on clinical condition of the patient. Ref: ??Latrell? s Toxicologic Emergencies 6th ed 1997; p. 967 Blood specimen (specimen) 11/10/2014 10:09 AM EDT 11/10/2014 10:23 AM EDT Narrative Resulting Agency Comment Spec In Lab Kylee Murray MD CHEMISTRY ORDERABLES [facility] * (ABNORMAL) Comprehensive metabolic panel (non-fasting) (11/10/2014 10:09 AM EDT) Pathologist [facility] Glucose 99 65 - 199 mg/dL [facility] Comment:Diabetes: >=200 mg/d L plus symptoms Blood Urea Nitrogen 16 8 - 18 mg/dL [facility] Creatinine 0.63(L) 0.70 - 1.20 mg/dL [facility] Comment: Please note that the pediatric reference intervals supplied above were not validated at [facility]. Results from pediatric patients should be interpreted in conjunction to the patient's age, height and muscle mass. Sodium 139 135 - 145 mmol/L [facility] Potassium 4.4 3.5 - 5.0 mmol/L [facility] Comment: Please note: ??Patients with WBC >100,000 may have falsely elevated Potassium levels. ??For accurate Potassium quantification in these patients send serum separator tube (gold top) for subsequent determinations. ??Contact the Clinical Chemistry Laboratory if there are any questions. Chloride 103 98 - 107 mmol/L [facility] Carbon Dioxide 21(L) 22 - 31 mmol/L [facility] Anion Gap 15 5 - 15 mmol/L [facility] Calcium 9.5 8.5 - 10.5 mg/dL [facility] Protein, Total 7.6 6.1 - 8.0 gm/dL [facility] Albumin 4.3 3.2 - 5.2 gm/dL [facility] Aspartate Aminotransferase 14 0 - 30 unit/L [facility] Alanine Aminotransferase 16 0 - 30 unit/L [facility] Alkaline Phosphatase 76 40 - 104 unit/L [facility] Bilirubin, Total <0.2(L) 0.2 - 1.3 mg/dL [facility] Bilirubin, Direct <0.1 0.0 - 0.3 mg/dL [facility] Est Glomerular Filtration Rate >60 >=60 [facility] Comment: This estimated GFR (eGFR) value was calculated using the MDRD equation which has been validated on patients between the ages of 18 and 70. The MDRD should not be used to assess kidney function in patients < 18 years of age or in patients with extremes of body mass, or in patients with acute kidney failure. This value should be multiplied by 1.2 for patients. For further information please copy and paste the following links into your internet browser. [email or web address] Blood specimen (specimen) 11/10/2014 10:09 AM EDT 11/10/2014 10:23 AM EDT Narrative Resulting Agency Comment Spec In Lab Kylee Murray MD CHEMISTRY ORDERABLES [facility] * (ABNORMAL) Basic Metabolic Panel (non-fasting) (11/10/2014 10:09 AM EDT) Glucose 99 65 - 199 mg/dL [facility] Comment:Diabetes: >=200 mg/d L plus symptoms Blood Urea Nitrogen 16 8 - 18 mg/dL [facility] Creatinine 0.63(L) 0.70 - 1.20 mg/dL [facility] Comment: Please note that the pediatric reference intervals supplied above were not validated at [facility]. Results from pediatric patients should be interpreted in conjunction to the patient's age, height and muscle mass. Sodium 139 135 - 145 mmol/L [facility] Potassium 4.4 3.5 - 5.0 mmol/L [facility] Comment: Please note: ??Patients with WBC >100,000 may have falsely elevated Potassium levels. ??For accurate Potassium quantification in these patients send serum separator tube (gold top) for subsequent determinations. ??Contact the Clinical Chemistry Laboratory if there are any questions. Chloride 103 98 - 107 mmol/L [facility] Carbon Dioxide 21(L) 22 - 31 mmol/L [facility] Anion Gap 15 5 - 15 mmol/L [facility] Calcium 9.5 8.5 - 10.5 mg/dL [facility] Est Glomerular Filtration Rate >60 >=60 [facility] Comment: This estimated GFR (eGFR) value was calculated using the MDRD equation which has been validated on patients between the ages of 18 and 70. The MDRD should not be used to assess kidney function in patients < 18 years of age or in patients with extremes of body mass, or in patients with acute kidney failure. This value should be multiplied by 1.2 for patients. For further information please copy and paste the following links into your internet browser. [email or web address] Blood specimen (specimen) 11/10/2014 10:09 AM EDT 11/10/2014 10:23 AM EDT Narrative Resulting Agency Comment Spec In Lab Kylee Murray MD CHEMISTRY ORDERABLES KRIS GROSS documented in this encounter Visit Diagnoses Diagnosis Depression Depressive disorder, not elsewhere classified documented in this encounter
--- OUTSIDE RECORDS SUMMARY | 2023-10-04 01:09 | XMS_ITS | Encounter Summary ---
Author Organization [facility] Address [facility] [place] [address] Care Team Providers Care Paint Prepper Name Role Phone Unavailable Primary Care Provider Unavailabl e Reason for Visit * Reason Onset Date Comments Pharmacy Call 05/30/2014 Encounter Details Date Type Department Care Team (Late st Contact Info) Description 05/30/2014 [address] Medicine [address] [facility] [address] [place] [phone] Maria D Schmid Pharmacy Call Social History Tobacco Use Types Packs/Day [...] Telephone Encounter - Gary Bertrand RN - 05/30/2014 11:34 AM EDT Pt is not available at work today. She had 2 VM left on her home phone to return clinic for the lithium level seth and then in 2 weeks to monitor for increased lithium levels since she is taking meloxicam. * Telephone Encounter - Gary Bertrand RN - 05/30/2014 11:31 AM EDT Returned patient's phone call and verified name and . Called pt who works at the [employer] in [place] at * Telephone Encounter - Gary Bertrand RN - 05/30/2014 11:25 AM EDT Called [facility] and told them to continue the dispensing of both meds since the pt would return to the lab every 2 weeks to monitor the lithium level. * Telephone Encounter - Tiff Peng PA - 05/30/2014 10:50 AM EDT Please have patient return for lithium lab draw, repeating again in 2 weeks to monitor due to Mobicuse. Lab cannot use collection from earlier today * Telephone Encounter - Gary Bertrand RN - 05/30/2014 9:27 AM EDT [facility] called in regards to the interaction between Meloxicam and [place]. Pt takes [place] 450mgBID. She has not had a lithium level listed. NSAIDs interfere with lithium excretion and may lead to elevated lithium serum concentrations. Clinically significant interactions rarely occur, but lithium toxicity has been reported * Telephone Encounter - Maria D Schmid - 05/30/2014 9:16 AM EDT Pharmacy needs to discuss Pt's meloxicam Rx. Pharmacy states Pt is on [place] and mixing the two drugs increases the risk of lithium toxicity Please call documented in this encounter Plan of Treatment Not on file documented as of this encounter Results * [place] level (06/10/2014 9:12 AM EDT) [place] 0.47 mmol/L [facility] Comment: Therapeutic level for bipolar depression: 0.60-1.20 mmol/L Action Level: ?? Acute toxicity: ?>4.00 mmol/L ?? Chronic toxicity: ??>1.50 mmol/L Values greater than or equal to the action level necessitate clinical intervention. ??Values less than this level may necessitate intervention based on clinical condition of the patient. Ref: ??Goldfrank? s Toxicologic Emergencies 6th ed 1997; p. 967 Blood specimen (specimen) 06/10/2014 9:12 AM EDT 06/10/2014 12:25 PM EDT Narrative Resulting Agency Comment Spec In Lab Lisa Seals MD [email or web address] S Performing Organization Address [facility] de Phone Number [facility] * [place] level (05/30/2014 1:50 PM EDT) [place] 0.32 mmol/L [facility] Comment: Therapeutic level for bipolar depression: 0.60-1.20 mmol/L Action Level: ?? Acute toxicity: ?>4.00 mmol/L ?? Chronic toxicity: ??>1.50 mmol/L Values greater than or equal to the action level necessitate clinical intervention. ??Values less than this level may necessitate intervention based on clinical condition of the patient. Ref: ??Goldfrank? s Toxicologic Emergencies 6th ed 1997; p. 967 Blood specimen (specimen) 05/30/2014 1:50 PM EDT 05/30/2014 3:32 PM EDT Narrative Resulting Agency Comment Spec In Lab Lisa Seals MD [email or web address] ORDERABLE S Performing Organization Address [facility] de Phone Number [facility] documented in this encounter Visit Diagnoses Diagnosis Encounter for therapeutic drug level monitoring Encounter for therapeutic drug monitoring documented in this encounter
--- OUTSIDE RECORDS SUMMARY | 2023-10-04 01:09 | XMS_ITS | Encounter Summary ---
[place] [address] Care Team Providers Care Clam Dredger Name Role Phone Unavailable Primary Care Provider Unavailabl e Encounter Details Date Type Department Care Team (Late st Contact Info) Description 02/13/2014 Telephone Occupational Medicine at [facility] [address] [place] [address] Rupal Llamas, PIG CASTING MACHINE OPERATOR Social History Tobacco Use Types Packs/Day Years [...]
--- OUTSIDE RECORDS SUMMARY | 2023-10-04 01:09 | XMS_ITS | Encounter Summary ---
[place] [address] Care Team Providers Care Assistant Professor In Family Studies Name Role Phone Unavailable Primary Care Provider Unavailabl e Encounter Details Date Type Department Care Team (Late st Contact Info) Description 01/02/2014 Telephone [place] [phone] Jessa Yanez, RN Social History Tobacco Use Types Packs/Day Years Used Date Smoking Tobacco: Never Smokeless Tobacco: Never Sex and Gender Information Value Date Recorded Sex Assigned at Female 09/09/2020 10:10 PM EDT Gender Identity Female 09/09/2020 10:10 PM EDT Sexual Orientation Straight 09/09/2020 10 :10 PM EDT documented as of this encounter Miscellaneous Notes * Telephone Encounter - Jessa Yanez RN - 01/02/2014 4:33 PM EST Emilee called to relay to Dayana Tinajero APRN that her symptoms of involuntary muscle movement and crying were not related to her Depakote. Per Dr. Cervantes. documented in this encounter Plan of Treatment Not on file documented as of this encounter Visit Diagnoses Not on filedocumented in this encounter
--- OUTSIDE RECORDS SUMMARY | 2023-10-04 01:09 | XMS_ITS | Encounter Summary ---
Author Organization [facility] [place] [address] Care Team Providers Care Regulatory Compliance Officer Name Role Phone Unavailable Primary Care Provider Unavailabl e Reason for Visit * Reason Comments Hyperthyroidism Encounter Details Date Type Department Care Team (Latest Contact Info) Description 07/22/2014 1:30 PM EDT Office [place] [address] Molly Dahl MD [facility] [place] [address] Intermittent palpitations; Thyroid nodule; History of partial thyroidectomy Discharge Disposition: Home Social History Tobacco Use [...] - Inhaled Oxygen Concentration - - Weight 79.4 kg (175 lb) 07/22/2014 1:09 PM EDT Height 165.5 cm (5' 5.16) 07/22/2014 1:09 PM ED T Body Mass Index 28.98 07/22/2014 1:09 PM EDT documented in this encounter Progress Notes * Molly Dahl MD - 07/22/2014 6:37 PM EDT I have seen the patient and reviewed Dr. Lynn's above history and I agree with the details aswritten. The assessment and plan were formulated in discussion with me and I agree with them as documented. I also directly supervised thyroid US and agree with the findings as written. No evidence of Grave's and only tiny hypoechoic hypervascular nodule of 0.3x0.6x0.7 cm over the isthmus and tiny cyst in the residual Rt lobe (s/p Lt lobectomy for hot nodule). She is on lithium which may interfere with thyroid function and should cont to monitor TSH at least annually with PCP further. Since her current TSH, FT4 and T3 are all normal, it's less likely to be the cause of her sinus tachycardia. Thanks for the consult. Molly Dahl MD, PhD, FACP, FACE * Effie Lynn MD - 07/22/2014 1:13 PM EDT New Patient Endocrinology Evaluation Reason for Evaluation: History of low TSH. DANICA Abebe is a 43 y/o rinku-menopausal female who is seen in consultation for a history of low TSH (0.32) and concern for underlying hyperthyroidism. She had a history of a toxic thyroid nodule in the left thyroid gland in January 2014 and underwent partial thyroidectomy at that time. TSH prior to 2013 was suppressed at 0.32, but since the thyroidectomy of the toxic nodule, her TSH has remained within normal limits and most recently on an outpatient basis was 1.66 with normal Free T4 and normal total T3. She was hospitalized with suicidal ideations at [facility] on 07/10/14 and TSH during that hospitalization was 0.6, which is within normal limits and FT4/Total T3 were also normal. In her usual state of health, reports feeling anxious and depressed. She reports dealing with a rapid heart rate/tachcyardia since the age of 13. She also reports problems with diaphoresis since puberty. No problems with flushing/pallor. No headaches. No vision changes. No family history of pheochro mocytoma. She reports that her mother has complications from mitral valve prolapse and rapid heart rate as well, though she is uncertain of the specific heart condition her mother suffers from. Her heart rate fluctuates between 90- 130 at rest on a daily basis. She denies using over the counter stimulants or excessive caffeine intake. She has been on [place] for over 1 year and has not noticed changes in heart rate with the addition of the medication. She has not seen a tape deck installer for her tachycardia. She otherwise has no other questions or concerns. Past Medical History 1. Fibromyalgia 2. Cervical Stenosis Past Surgical History Past Surgical History Procedure Laterality Date ??? Mastectomy, partial ??? Rotator cuff repair Left 2009 ??? Septoplasty tonsils and upper palate reshaping ??? Endometrial ablation ??? Cholecystectomy ??? Tubal ligation ??? Colposcopy 07/30/13 ??? Thyroidectomy, partial 02/09 Current Medications hydrOXYzine (VISTARIL) 25 mg Capsule; LORazepam (ATIVAN) 0.5 mg Tablet; VITAMIN D 50,000 unit Capsule; meloxicam (MOBIC) 15 mg Tablet; fexofenadine (PAULIE) 180 mg Tablet; lithium (ESKALITH) 450 mg Tablet Sustained Release; lamoTRIgine (LAMICTAL) 100 mg Tablet; traZODone (DESYREL) 100 mg Tablet; epiNEPHrine (EPIPEN) 0.3 mg/0.3 mL (1:1,000) injection; traMADol (ULTRAM) 50 mg tablet; diphenhydrAMINE (BENADRYL) 25 mg capsule Mometasone (NASONEX) 50 mcg/Actuation [place]. She stopped taking Tramadol. Social History She is from [place], [place]. 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 Does not smoke cigarettes. She occasionally drinks alcohol. No illicit drug use. She is engaged. She has 3 children. Family History Mother is living with Mitral Valve Prolapse, Tachycardia, Asthma and osteoporosis. Father of acerebral hemorrhage. He also had diabetes mellitus type 2. Review of Systems Review of Systems - General ROS: positive for - fatigue and hot flashes Psychological ROS: positive for - anxiety and depression Ophthalmic ROS: negative for - blurry vision ENT ROS: negative for - headaches Hematological and Lymphatic ROS: negative for - bleeding problems, bruising, fatigue, jaundice, night sweats, pallor, swollen lymph nodes or weight loss Endocrine ROS: positive for - hot flashes and palpitations Respiratory ROS: no cough, shortness of breath, or wheezing Cardiovascular ROS: no chest pain or dyspnea on exertion positive for - rapid heart rate Gastrointestinal ROS: no abdominal pain, change in bowel habits, or black or bloody stools Genito-Urinary ROS: no dysuria, trouble voiding, or hematuria Musculoskeletal ROS: negative Neurological ROS: negative Dermatological ROS: negative Physical Examination BP Ht 165.5 cm (5' 5.16) Wt 79.379 kg (175 lb) BMI 28.98 kg/m2 General Appearance - Appears to be in no acute distress. Head - Normal cephalic. Eyes - EOMI. No exophthalmos. Neck - She has a surgical incision scar and had mild tenderness on palpation of thyroid gland. No thyromegaly. No palpable masses. CVS - Heart rate was 88 bpm. No murmurs, clicks or gallops. Radial pulses are 2+ and symmetrical. Resp - Clear to auscultation bilaterally. Neuro - No resting tremors noted. Normal reflexes in bilateral upper/lower extremities. Labs Results for CODY ABEBE ( ) as of 07/22/2014 17:55 Ref. Range 09/14/2012 00:00 12/17/2013 00:00 05/30/2014 09:34 Free T4 Latest Range: 0.93-1.70 ng/dL 1.48 TSH Latest Range: 0.27-4.20 mcIU/mL 0.32 (EXTERNAL/ABN) 0.41 1.66 T3, Free Latest Range: 2.0-4.4 pg/mL 4.3 Thyroid Ultrasound There was no evidence of a left thyroid gland or left thyroid tissue. Right thyroid gland was of normal size and vascularity with a subcentimeter colloid cyst in the right superior thyroid gland. There was a somewhat hypervascular, sub-centimeter cyst in the isthmus. This was a normal thyroid ultrasound. Assessment Cody Abebe is a 43 y/o female seen in consultation for hyperthyroidism. Today, she is clinically and chemically euthyroid. Her recent TSH of 0.6 is unreliable in the setting of stress/illness/hospitalization and may represent euthyroid sick syndrome; however, it is reassuring that her TSH has improved gradually since partial thyroidectomy. Though [place] is associated with hyperthyroidism, her Free T4 and total T3 have remained within normal limits suggesting that there is not endogenous thyroid hormone excess production. [place] can suppress TSH though and therefore TSH should be monitored yearly. With normal TSH/FT4 and normal total T3 presently, her palpitations would not be explained by thyroid disease. Furthermore, her heart rate was normal during physical examination today. Her thyroid ultrasound was also normal without evidence of new thyroid nodules >1.0 cm and no evidence of gland hypervascularity to suggest hyperthyroidism at this time. We recommend further workup for palpitations/tachycardia, especially in light of mother's history of arrhythmia by PCP or cardiology but as mentioned, with normal thyroid studies, her palpitations/anxiety are not caused by hyperthyroidism and she presently does not have hyperthyroidism. In light of history of toxic thyroid nodule, recommend monitoring TSH once yearly. In summary, the following are our recommendations: Recommendations 1. Check TSH once yearly. 2. Consider EKG or cardiology referral for palpitations/tachycardia. 3. No further endocrine workup at this time. Appreciate the opportunity to assist in the care of Cody Abebe. Follow Up - None Plan of care has been discussed with attending physician, Dr. Hesham MD, Department of Endocrinology Effie Lynn MD Endocrine Fellow documented in this encounter Plan of Treatment Not on file documented as of this encounter Visit Diagnoses Diagnosis Intermittent palpitations Thyroid nodule Nontoxic uninodular goiter History of partial thyroidectomy Other postprocedural status documented in this encounter
--- OUTSIDE RECORDS SUMMARY | 2023-10-04 01:09 | XMS_ITS | Encounter Summary ---
Author Organization [facility] Address [facility] [place] [address] Care Team Providers Care Funeral Home Makeup Artist Name Role Phone Dina Diaz Primary Care Provider + Reason for Visit * Reason Onset Date Comments Medication Refill 08/06/2014 Encounter Details Date Type Department Care Team (Late st Contact Info) Description 08/06/2014 Refill Family Medicine at [address] [phone] Tiff Peng PA [facility] [place] [address] Social History Tobacco Use Types Packs/Day Years [...] on filedocumented in this encounter Care Teams Funeral Home Makeup Artist Relationship Specialty Start Date End Date Dina Diaz PA [address] [place] [address] [address] [place], [place] [id number] PCP - General Internal Medicine 05/26/20 documented as of this encounter
--- OUTSIDE RECORDS SUMMARY | 2023-10-04 01:09 | XMS_ITS | Encounter Summary ---
Author Organization [facility]ly [facility] [place] [address] Care Team Providers Care Retail Agent Name Role Phone Unavailable Primary Care Provider Unavailabl e Reason for Visit * Reason Comments Back Pain Cervicalgia Encounter Details Date Type Department Care Team (Late st Contact Info) Description 01/02/2014 8:45 AM EST Follow-[place] [address] Daryl Tinajero, SCRIPT WORKER [facility] [place] [address] Chronic LBP (Primary Dx) Discharge Disposition: Home Social History [...] Sign Reading Time Taken Comments Blood Pressure 102/64 01/02/2014 9:06 AM EST Pulse 122 01/02/2014 9:06 AM EST Temperature - - Respiratory Rate - - Oxygen Saturation 99% 01/02/2014 9:06 AM EST Inhaled Oxygen Concentration - - Weight 81.6 kg (180 lb) 01/02/2014 9:06 AM EST Height 167.6 cm (5' 6) 01/02/2014 9:06 AM EST Body Mass Index 29.05 01/02/2014 9:06 AM EST documented in this encounter Progress Notes * Daryl Tinajero, SCRIPT WORKER - 01/02/2014 9:21 AM EST PAIN CLINIC FOLLOW-UP Eimlee Abebe [id number] Reason for follow-up: Medical management Chief Complaint: Back pain Identification: Ms. 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 History of Present Illness/Interval History Pain Location: LBP, right buttock, lateral right thigh Pain Quality is described as annoying ache Pain Exacerbating/relieving activities: worse with sitting, better with laying and rest Rated as 2/10 Depression: none Anxiety: none Sleep: OK Smoking: no Alcohol: no Functional Status: able to care for self, needs help with home Recent treatments: none, has not been able to start Pool Tx The [place] Prescription Monitoring Program was checked and no issues were found. Chronic Opioid Therapy Pain Management Plan has not been signed UDT: has not been done. Review of Systems Constitutional Denies weight loss or gain, fevers, chills, can have nightsweats R/T menopause Cardiovascular Denies chest pain, palpitations. Respiratory Denies cough, SOB, JORDAN. GI/ Can have constipation, diarrhea, nausea, no vomiting, no GERD, no incontinence Musculoskeletal Has weakness both legs, no falling Neurologic Denies fainting spells, seizures, memory loss but can have times where she is spacey. Denies numbness or paresthesia Physical Exam Blood pressure 102/64, pulse 122, height 167.6 cm (5' 6), weight 81.647 kg (180 lb), SpO2 99.00%. Constitutional Emilee Abebe is seen today alone. Dressed appropriately for the weather with good hygiene. No pain behaviors. No Josi signs. Psychiatric He has good eye contact and a full range of affect. Lungs Clear to auscultation Cardiac Reg RR Musculoskeletal Moves easily in the exam room with a non antalgic gait. No ambulatory aids used. Assessment LBP Recommendations/Plan Emilee Abebe and I reviewed her symptoms and care to date. Is awaiting Pool Tx to start. Seems better on ibuprofen. She describes several odd Sx including being spacey and slow to track conversations, has been dizzy. She is concerned about these Sx but has not spoken with anyone about them. Is trying to arrange a visit with a new PCP. She and I are concerned about her Sx. I am wondering if her change in sensorium may be R/T Depakote, that she has been on 6 weeks. Have suggested she F/U withher psychiatrist. Jessa Haq, UX ENGINEER has offered to assist her getting in to see a PCP. She isto see Dr Garcia this morning. F/U PRN Goal: Decreased pain Increased function Improved mood We have mutually agreed to the following: I discussed the risks and potential side effects of opioid medications, that include but are not limited to, addiction, dependence, tolerance, osteoporosis, constipation, and sexual dysfunction. DARYL TINAJERO APRN cc: ARVIND MEJIA MD None documented in this encounter Plan of Treatment Not on file documented as of this encounter Visit Diagnoses Diagnosis Chronic LBP- Primary Lumbago documented in this encounter
--- OUTSIDE RECORDS SUMMARY | 2023-10-04 01:09 | XMS_ITS | Encounter Summary ---
[place] [address] Care Team Providers Care Internet Developer Name Role Phone Unavailable Primary Care Provider Unavailabl e Encounter Details Date Type Department Care Team ([facility] st Contact Info) Description 03/20/2014 1:15 PM EST Office Visit [facility] [address] [place] [address] Alejandra Molina MD [address] [place] [address] Social History Tobacco Use Types Packs/Day Years [...]
--- OUTSIDE RECORDS SUMMARY | 2023-10-04 01:09 | XMS_ITS | Encounter Summary ---
Author Organization [facility] Address [facility] [place] [address] Care Team Providers Care Feed Mill Tender Name Role Phone Unavailable Primary Care Provider Unavailabl e Reason for Visit * Reason Onset Date Comments Medication Refill 04/25/2014 sounded like y ou were having her wean off of them and that is the reason for cutting them in half. She said if you werent comfortable with it, that was ok and she will talk to you about it at her next visit. CAV Encounter Details Date Type Department Care Team (Late st Contact Info) Description 04/25/2014 Refill Occupational Medicine at [facility] [address] [place] [address] Dayanna Garcia MD [facility] [place] [address] Social History Tobacco Use Types Packs/Day Years [...]
--- OUTSIDE RECORDS SUMMARY | 2023-10-04 01:09 | XMS_ITS | Encounter Summary ---
Author Organization [facility] Address [facility] [place] [address] Care Team Providers Care Wash Worker Name Role Phone Unavailable Primary Care Provider Unavailabl e Encounter Details Date Type Department Care Team (Latest Contact Info) Description 06/10/2014 8:59 AM EDT - 06/10/2014 11:59 PM EDT Hospital [place] [address] Lisa Seals MD [facility] [place] [address] Encounter for therapeutic drug level monitoring Discharge Disposition: Home Social History Tobacco Use [...] Sig Dispensed Refills Start Date End Date cyclobenzaprine (FLEXERIL) 10 mg Tablet Take 1 tablet by mouth nightly as needed for Muscle spasms for up to 30 days. 2-3 times daily as needed 30 tablet 1 06/10/2014 07/10/2014 lithium (ESKALITH) 450 mg Tablet Sustained Release Take 450 mg by mouth daily. 11/10/2014 meloxicam (MOBIC) 15 mg TabletIndications:N clifford pain Take 1 tablet by mouth daily for 30 days. 30 tablet 0 05/30/2014 06/16/2014 lamoTRIgine (LAMICTAL) 100 mg Tablet Take 100 mg by mouth 3 times daily. 11/10/2014 traZODone (DESYREL) 100 mg Tablet Take 75 mg by mouth nightly. 11/10/2014 DULoxetine (CYMBALTA) 60 mg capsule Take 60 mg by mouth daily. 07/22/2014 epiNEPHrine (EPIPEN) 0.3 mg/0.3 mL (1:1,000) injection Inject 0.3 mg into the muscle once as needed. 5 traMADol (ULTRAM) 50 mg tablet Take 50-100 mg by mouth as needed. Takes it with cyclobenazprine 11/10/2014 fexofenadine (PAULIE) 180 mg tablet Take 1 tablet by mouth daily. 90 tablet 3 08/10/2011 06/16/2014 diphenhydrAMINE (BENADRYL) 25 mg capsule Take 25-50 mg by mouth as needed. 08/02/2010 07/14/2020 Mometasone (NASONEX) 50 mcg/Actuation [place] 2 [place](s) each side, Nasal, Twice daily 02/12/2010 01/08/2015 documented as of this encounter Plan of Treatment Not on file documented as of this encounter Procedures Procedure Name Priority Date/Time Associated Diagnosis Comments LITHIUM LEVEL Routine 06/10/2014 9:12 AM EDT Encounter for therapeutic drug level monitoring documented in this encounter Results * [place] level (06/10/2014 9:12 AM EDT) [place] 0.47 mmol/L [facility] Comment: Therapeutic level for bipolar depression: 0.60-1.20 mmol/L Action Level: ?? Acute toxicity: ?>4.00 mmol/L ?? Chronic toxicity: ??>1.50 mmol/L Values greater than or equal to the action level necessitate clinical intervention. ??Values less than this level may necessitate intervention based on clinical condition of the patient. Ref: ??Latrell? s Toxicologic Emergencies 6th ed 1997; p. 145 Blood specimen (specimen) 06/10/2014 9:12 AM EDT 06/10/2014 12:25 PM EDT Narrative Resulting Agency Comment Spec In Lab Lisa Seals MD CHEMISTRY ORDERABLE S Performing Organization Address City/State/[facility] Co de Phone Number [facility] documented in this encounter Visit Diagnoses Diagnosis Encounter for therapeutic drug level monitoring Encounter for therapeutic drug monitoring documented in this encounter
--- OUTSIDE RECORDS SUMMARY | 2023-10-04 01:09 | XMS_ITS | Encounter Summary ---
[place] [address] Care Team Providers Care Cripple Cutter Name Role Phone Unavailable Primary Care Provider Unavailabl e Encounter Details Date Type Department Care Team (Late st Contact Info) Description 07/08/2014 Telephone Family Medicine at [facility] [address] [place] [address] Gary Bertrand RN Social History Tobacco Use Types Packs/Day [...] Telephone Encounter - Gary Bertrand RN - 07/08/2014 8:56 AM EDT Called psych urgent care hotline and gave explanation of pt's suicidal ideations. Joanna, the counselor stated she will call the pt. documented in this encounter Plan of Treatment Not on file documented as of this encounter Visit Diagnoses Not on filedocumented in this encounter
--- OUTSIDE RECORDS SUMMARY | 2023-10-04 01:09 | XMS_ITS | Encounter Summary ---
Author Organization [facility] [place] [address] Care Team Providers Care Patient Ombudsperson Name Role Phone Unavailable Primary Care Provider Unavailabl e Reason for Visit * Reason Onset Date Comments Other 12/13/2013 Encounter Details Date Type Department Care Team (Late st Contact Info) Description 12/13/2013 Telephone Care Management [facility] [place] [address] Sharon Urbano, [facility] [place] [address] Other Social History Tobacco Use Types Packs/Day Years Used Date Smoking Tobacco: Never Smokeless Tobacco: Never Sex and Gender Information Value Date Recorded Sex Assigned at Female 09/09/2020 10:10 PM EDT Gender Identity Female 09/09/2020 10:10 PM EDT Sexual Orientation Straight 09/09/2020 10 :10 PM EDT documented as of this encounter Miscellaneous Notes * Telephone Encounter - Sharon Urbano, DEBRANDER - 12/13/2013 4:[address] [facility] followed up w/ Dayana Tinajero APRN in the pain clinic following her appt w/ pt. Pt was referred to pain clinic by Dr.Karen Garcia for pain tx recommendations, and OVERLOCK COLLAR SETTER is recommending gym membership w/ pool, or aquatic therapy. OVERLOCK COLLAR SETTER was unclear about pt's wc status, requesting care management assistance in this area and advocacy for the above tx recommendations. CCM recommended OVERLOCK COLLAR SETTER print out referrals for the pool/gym membership for aquatic tx that could be faxed to wc insurance. 's 12-05 note references request for Jessa Oliver MSW, floor care technician to f/u w/ pt to help clarify wc issues and status. CCM will collaborate w/ Ms. Oliver re: Dayana Tinajero's tx recommendations for this pt requesting herto f/u w/ wc insurance re: this tx need. P: CCM will collaborate w/ Jessa Oliver re: the above encounter w/ pain clinic provider to discuss intervention needs. documented in this encounter Plan of Treatment Not on file documented as of this encounter Visit Diagnoses Not on filedocumented in this encounter
--- OUTSIDE RECORDS SUMMARY | 2023-10-04 01:09 | XMS_ITS | Encounter Summary ---
[place] [address] Care Team Providers Care Director Acute Name Role Phone Unavailable Primary Care Provider Unavailabl e Encounter Details Date Type Department Care Team (Late st Contact Info) Description 02/06/2014 Notes Only [place] [id number] Jessa Oliver MSW Social History Tobacco Use Types Packs/Day Years Used Date Smoking Tobacco: Never Smokeless Tobacco: Never Sex and Gender Information Value Date Recorded Sex Assigned at Female 09/09/2020 10:10 PM EDT Gender Identity Female 09/09/2020 10:10 PM EDT Sexual Orientation Straight 09/09/2020 10 :10 PM EDT documented as of this encounter Progress Notes * Jessa Oliver MSW - 02/06/2014 1:39 PM EST [facility] called pt at request of Dr Garcia. Left requesting call back to review her wc claim and treatment needs. documented in this encounter Plan of Treatment Not on file documented as of this encounter Visit Diagnoses Not on filedocumented in this encounter
--- OUTSIDE RECORDS SUMMARY | 2023-10-04 01:09 | XMS_ITS | Encounter Summary ---
[place] [address] Care Team Providers Care Hog Sticker Name Role Phone Unavailable Primary Care Provider Unavailabl e Reason for Visit * Reason Onset Date Comments Patient Not Seen 02/13/2014 Encounter Details Date Type Department Care Team (Late st Contact Info) Description 02/13/2014 9:15 AM EST Follow-[place] [address] Bessy Quinn DO [facility] [place] [address] PATIENT NOT SEEN Discharge Disposition: Home Social History Tobacco Use Types Packs/Day Years Used Date Smoking Tobacco: Never Smokeless Tobacco: Never Sex and Gender Information Value Date Recorded Sex Assigned at Female 09/09/2020 10:10 PM EDT Gender Identity Female 09/09/2020 10:10 PM EDT Sexual Orientation Straight 09/09/2020 10 :10 PM EDT documented as of this encounter Progress Notes * Dayanna Garcia MD - 02/13/2014 11:[address] Quinn: I was running 10 minutes behind secondary to an emergency in the clinic. The patient was informed by nursing staff and given an apology. She decided to leave as opposed to waiting to be seen. BESSY QUINN DO, MPH ABP-subspecialty board certification in Pain Medicine Attending Physician-Pain Management * Bessy Quinn DO - 02/13/2014 1:28 PM EST I was running 10 minutes behind secondary to an emergency in the clinic. The patient was informed by nursing staff and given an apology. She decided to leave as opposed to waiting to be seen. BESSY QUINN DO, MPH ABPMR-subspecialty board certification in Pain Medicine Attending Physician-Pain Management This patient was not seen in this encounter. documented in this encounter Plan of Treatment Not on file documented as of this encounter Visit Diagnoses Diagnosis PATIENT NOT SEEN documented in this encounter
--- OUTSIDE RECORDS SUMMARY | 2023-10-04 01:09 | XMS_ITS | Encounter Summary ---
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 Role Phone Unavailable Primary Care Provider Unavailabl e Encounter Details Date Type Department Care Team (Late st Contact Info) Description 04/21/2014 Abstract Family Medicine at [address] [place] [address] Paulette Ramirez, [facility] Social History Tobacco Use Types Packs/Day Years [...] Name Priority Date/Time Associated Diagnosis Comments EXTERNAL LAB THYROID RESULTS PANEL - [facility] Routine 12/17/2013 EXTERNAL LAB CBC CMP THYROID RESULTS PANEL Routine 12/17/2013 EXTERNAL LIPID LAB RESULTS PANEL Routine 09/18/2012 documented in this encounter Results * Thyroid External Results - [facility] (12/17/2013) Thyroid Stimulating Hormone 0.41 12/17/2013 Historical Provider POINT OF CARE MARITZA T ORDERABLES * CBC / CMP / Thyroid External Results (12/17/2013) White Blood Cell 8.0 Hemoglobin 13.3 12.0 - 16.0 Hematocrit 39.8 36.0 - 46.0 Mean Cell Volume 88.0 82.0 - 108.0 Platelet 357 Sodium 140 137 - 147 Potassium 3.5 3.4 - 5.3 Chloride 102 99 - 108 Carbon Dioxide 27 22 - 29 Blood Urea Nitrogen 11 Creatinine 0.8 Est Glomerular Filtration Rate 60 Glucose 104 Calcium 8.9 8.7 - 10.7 Red Blood Cell 4.53 4.00 - 5.20 12/17/2013 Historical Provider EXTERNAL LAB ADOLPH TIJERINA * Lipid External Results (09/18/2012) Cholesterol, Total 191 mg/dL HDL Cholesterol 47 md/dL LDL Cholesterol 109 mg/dL Triglyceride 177 mg/dL 09/18/2012 Historical Provider POINT OF CARE MARITZA T ORDERABLES documented in this encounter Visit Diagnoses Not on filedocumented in this encounter
--- OUTSIDE RECORDS SUMMARY | 2023-10-04 01:09 | XMS_ITS | Encounter Summary ---
Author Organization [facility] Address [facility] [place] [address] Care Team Providers Care Med Surg Nurse Name Role Phone Unavailable Primary Care Provider Unavailabl e Encounter Details Date Type Department Care Team (Latest Contact Info) Description 05/30/2014 9:29 AM EDT - 05/30/2014 11:59 PM EDT Hospital [place] [address] Lisa Seals MD [facility] [place] [address] Overactive thyroid gland; Encounter for therapeutic drug level monitoring Discharge [...] Sig Dispensed Refills Start Date End Date hydrOXYzine (ATARAX) 25 mg TabletIndications:A nxiety Take 1 tablet by mouth 3 times daily as needed for Anxiety for up to 10 days. 30 tablet 0 05/30/2014 06/09/2014 lithium (ESKALITH) 450 mg Tablet Sustained Release [...] mg into the muscle once as needed. cyclobenzaprine (FLEXERIL) 10 mg tablet Take 10 mg by mouth. 2-3 times daily as needed 06/10/2014 traMADol (ULTRAM) 50 mg tablet Take 50-100 mg by mouth as needed. Takes it with cyclobenazprine 11/10/2014 fexofenadine (PAULIE) 180 mg tablet Take 1 tablet by mouth daily. 90 tablet 3 08/10/2011 06/16/2014 diphenhydrAMINE (BENADRYL) 25 mg capsule Take 25-50 mg by mouth as needed. 08/02/2010 07/14/2020 Mometasone (NASONEX) 50 mcg/Actuation [place] 2 [place](s) each side, Nasal, Twice daily 02/12/2010 01/08/2015 documented as of this encounter Plan of Treatment Not on file documented as of this encounter Procedures Procedure Name Priority Date/Time Associated Diagnosis Comments LITHIUM LEVEL Routine 05/30/2014 1:50 PM EDT Encounter for therapeutic drug level monitoring T3, FREE Routine 05/30/2014 9:34 AM EDT Overactive thyroid gland TSH Routine 05/30/2014 9:34 AM EDT Overactive thyroid gland T4, FREE Routine 05/30/2014 9:34 AM EDT Overactive thyroid gland documented in this encounter Results * [place] level (05/30/2014 1:50 PM EDT) [place] 0.32 mmol/L [facility] Comment: Therapeutic level for bipolar depression: 0.60-1.20 mmol/L Action Level: ?? Acute toxicity: ?>4.00 mmol/L ?? Chronic toxicity: ??>1.50 mmol/L Values greater than or equal to the action level necessitate clinical intervention. ??Values less than this level may necessitate intervention based on clinical condition of the patient. Ref: ??Goldfrank? s Toxicologic Emergencies 6th ed 1998; p. 967 Blood specimen (specimen) 05/30/2014 1:50 PM EDT 05/30/2014 3:32 PM EDT Narrative Resulting Agency Comment Spec In Lab Lisa Seals MD CHEMISTRY ORDERABLE S Performing Organization Address [facility] de Phone Number [facility] * T3, free (05/30/2014 9:34 AM EDT) Free T3 4.3 2.0 - 4.4 pg/mL [facility] Blood specimen (specimen) 05/30/2014 9:34 AM EDT 05/30/2014 12:48 PM EDT Narrative Resulting Agency Comment Spec In Lab Lisa Seals MD CHEMISTRY ORDERABLE S Performing Organization Address [facility] de Phone Number [facility] * T4, free (05/30/2014 9:34 AM EDT) Free T4 1.48 0.93 - 1.70 ng/dL [facility] Blood specimen (specimen) 05/30/2014 9:34 AM EDT 05/30/2014 12:48 PM EDT Narrative Resulting Agency Comment Spec In Lab Lisa Seals MD CHEMISTRY ORDERABLE S Performing Organization Address [facility] Co de Phone Number [facility] * TSH (05/30/2014 9:34 AM EDT) Thyroid Stimulating Hormone 1.66 0.27 - 4.20 mcIU/mL [facility] Blood specimen (specimen) 05/30/2014 9:34 AM EDT 05/30/2014 12:48 PM EDT Narrative Resulting Agency Comment Spec In Lab Lisa Seals MD CHEMISTRY ORDERABLE S [facility] documented in this encounter Visit Diagnoses Diagnosis Overactive thyroid gland Thyrotoxicosis without mention of goiter or other cause, without mention of thyrotoxic crisis or storm Encounter for therapeutic drug level monitoring Encounter for therapeutic drug monitoring documented in this encounter
--- OUTSIDE RECORDS SUMMARY | 2023-10-04 01:09 | XMS_ITS | Encounter Summary ---
Author Organization [facility] [place] [address] Care Team Providers Care Clay Press Operator Name Role Phone Unavailable Primary Care Provider Unavailabl e Encounter Details Date Type Department Care Team (Late st Contact Info) Description 01/27/2014 12:30 PM EST Follow-Up Occupational Therapy at [address] [phone] Celestine Naik, OT [facility] [place] [address] Dayanna Garcia MD [facility] [place] [phone] Back pain Discharge Disposition: Home Social History Tobacco Use Types Packs/Day Years Used Date Smoking Tobacco: Never Smokeless Tobacco: Never Sex and Gender Information Value Date Recorded Sex Assigned at Female 09/09/2020 10:10 PM EDT Gender Identity Female 09/09/2020 10:10 PM EDT Sexual Orientation Straight 09/09/2020 10 :10 PM EDT documented as of this encounter Progress Notes * Celestine Naik, OT - 01/29/2014 4:16 PM EST Images from the original note were not included. FUNCTIONAL CAPACITY EVALUATION of Ms. Emilee Abebe REQUESTED BY Dr. Dayanna Garcia [facility] Occupational medicine [address] [place] [id number] PREPARED BY Celestine Naik [facility] [id number] [address] P: [phone] ASSESSED 01/27/2014 TABLE OF CONTENTS Summary Report 1 Client Profile 1 Standardized Testing 1 Physical Effort Testing 1 Reliability of Pain And Disability Reports Testing 1 Dexterity Testing 1 Employment Supervisor Strength and Handling Testing 1 Fitness Testing 1 Mobility Testing 1 Strength Testing 1 Sustained Activity and Positional Tolerances 1 Musculoskeletal Evaluation 1 Additional Information 1 FUNCTIONAL CAPACITY EVALUATION Summary ReportSUMMARY REPORT Client: Ms. Emilee Abebe Date of service: 01/27/2014 Evaluation time 4 hours 5 minutes 16 units of physical performance tests and measures Diagnosis: lower back pain ICD 724.5 Age at time of evaluation: 43 Referred by: Dr. Dayanna Garcia Reasons for Referral Ms. Abebe was referred to this facility to answer the following questions about her current work/functional ability: 1. Did Ms. Abebe provide high levels of physical effort through-out the testing day? 2. Are Ms. Maddens reports of pain and disability reliable? If not reliable, is there a pattern [id number] reports? 3. What are Ms. Maddens physical work tolerances in Department of Labor terminology to assist withvocational planning? Ms. Abebe underwent a functional capacity evaluation on 01/27/2014. Following an intake interview,a series of standardized tests was conducted to ensure the client's safety for testing, to determine her level of participation in the testing process and to answer the referral questions. A summary of the findings of this evaluation is presented here; details of the evaluation follow in the body of the report. Physical Effort Findings Overall test findings, in combination with clinical observations, suggest the presence of high levels of physical effort on Ms. Abebe's behalf. Reliability of Pain and Disability Reports Findings Overall test findings, in combination with clinical observations, suggest that Ms. Maddens subjective reports of pain and disability are unreliable. Comments Client reports that she was not aware of her abilities at the start of the assessment. ???I don???tknow what I am able to do and that is why I am here?? Physical Abilities Demonstrated Functional Tolerance Position Static Standing 1 hour Dynamic Standing completed 2 hours 30 minutes of sustained standing Walking Completed 5 minute walk with a functional speed for the 5 Minute Walk. No deficits evidenced walking between evaluation areas. Sitting Tolerated 45 minutes without observed deficit Weight/Force Lifting floor to knuckle occasional lifting 23 lbs with 12 inches from floor to knuckle 33 lbs Lifting occasional knuckle to overhead lifting 23 lbs Carrying occasional carrying 30 ft 23 lbs Pushing initial occasional push force 46 lbs with sustained force 41 lbs Pulling initial occasional pull force44 lbs with sustained force 39 lbs Agility Climbing climbed 48 steps slowly with decreased speed after 24 intermittently requiring use of rail Balancing loss of balance evident with floor level lifting Stooping sustained 1 hour of stooping Crouching sustained this for 5 minutes with the work simulation activity Twisting/Spinal Rotation avoided twisting with material handling activity with limited ROM noted onmusculoskeletal evaluation. Low-Level Work able to sustained kneeling working at floor level for 2 periods of 4 minutes Prolonged Neck Positioning sustained 1 hour of looking down and 5 minute periods of looking up for overhead activity with work simulation Dexterity Reaching Forward no deficits observed with this. Handling presented with appropriate control for material handling activity Fingering scored appropriately for the Pallavi Peg board. She was below first percentile for the [employer] test and [place] Rate of Manipulation. Above-shoulder Work tolerated 2 periods of 5 minutes without deficit for work simulation. Potential: Ms. Abebe reports keeping her activity and lifting at home minimal such that she is notlifting more than 10 lbs. As she increases her activity at home and attains work at a light demand level she has the potential of increasing into the medium demand level range for her lifting and endurance. Summary of Findings The below findings were based on an assessment of the level of physical activity Ms. Abebe performed, the way she performed them, statements made during the evaluation, and observations made. It needs to be remembered that the evaluation occurs over a relatively short period of time and is a snapshot of the person's abilities. Ms. Abebe performed at a light physical demand level occasionally lifting and carrying 23lbs exceeding this with 12 inches to knuckle lifting occasionally at 33 lbs. With frequent lift testing she sustained a light demand level frequently tolerating 13 lbs 6-36 inches and 18 lbs 36-60 inches. She presented with functional positional tolerance sustaining static standing and stooping for one hour and keeping on her feet for 2 hours 30 minutes. Sitting was limited today to 45 minutes considering she needed to get up to go to the bathroom but no actual deficits with sitting were evidenced. She was able to reach overhead and access floor level by kneeling for short periods without deficit. She maintained good endurance for activity over the course of the assessment. 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 The results of this evaluation were reviewed with Ms. Abebe at the conclusion of the evaluation. This concludes a summary of the findings of the evaluation of Ms. Abebe. Details of test results and other supporting documentation may be found on the following pages, if attached. Thank you for your referral of Ms. Abebe. Signed, Celestine Naik OT/L [id number] [place] [address] P: [phone] FUNCTIONAL CAPACITY EVALUATION SUPPORTING DOCUMENTATION Client ProfileCLIENT PROFILE The client, Ms. Abebe, signed the Consent to Evaluate form prior to participating in the evaluation. The following information was obtained during the interview: Date of 1970 Height 66 in Weight 178 lb Hand Dominance Right Ms. Abebe's sitting resting heart rate was 114 beats per minute. Previous Treatment Ms. Abebe reports having attended the following treatments in an attempt to rehabilitate her condition: Treatment Approximate Date Results Comments Other she continues to go to the pool 1-2x per week with exercises on her own Investigations Ms. Abebe reports having had the following investigations: Investigation Current Injury? Date Results/Comments MRI No L4-L5 central disc protrusion, L3-L4 loss of disc height. L5- S1 central and paracentral protrusion Medical History Ms. Abebe indicates the following medical history: ??? Night Sweats/Fever ??? Recent Weight Loss/Gain ??? Numbness/Tingling ??? Headaches ??? Balance Problems ??? Varicose Veins ??? Nausea/Vomiting (Other than Flu) ??? Back Injury ??? Arthritis ??? Thyroid Problems ??? Trouble Sleeping ??? Stress ??? Depression Ms. Abebe also provides the following medical history and medication information: Area Description Prescription Medications lamictal, Cymbalta, fexofenadine, trazadone, Depakote Worker's Narrative She wakes up to get daughter to school by 7:30 then walks her dogs for 20 minutes. She goes in the house and rests for anywhere from 15 minutes to hours depending on the day She will then do house work and do some dishes but needs to rest in between. She will have lunch then take a nap for 1-2 hours. Goes to get daughter at school. Brings dogs for 20 minute walk again. she is to bed by 9-10PM Home Environment Ms. Hernandez home environment is as follows: Resides With Family Type of Residence Apartment, Single Level Activity Level Negligible; Requiring Daily Naps Education Completed associates degree in business Ms. Abebe enjoys/enjoyed the following hobbies: Reading Walking sowing Reported Functional Tolerances Ms. Abebe reports her functional tolerances as follows: Client's Estimate of Maximum Tolerance Limited By Position Static Standing 30 minute back pain Dynamic Standing 2 hours back pain and fatigue Walking 30 minutes back pain Sitting 1 hour back pain and stiffness Weight/Force Lifting floor to knuckle 10 lbs back pain and strength Lifting knuckle to shoulder 10 lbs back pain and strength Lifting shoulder to overhead 5 lbs back pain and strength Carrying 10 lbs back pain and strength Pushing functional can do a grocery cart but unable to handle a manufacturer Pulling can pull a grocery cart but unable to use a manufacturer Agility Climbing 2 flight of stairs and can climb a step ladder Balancing reports random loss of balance on flat ground and significant decrease with uneven outdoor ground sometimes I get weakness in my legs or a sharp pain shoots down into her leg that causes me to lose balance Stooping 15 mintues back pain. Crouching can sustain for a few minutes Crawling unable Twisting/Spinal Rotation None Reported No reported limitation Low-Level Work unable to sustain more than 1-2 minutes needs to knee for this Prolonged Neck Positioning unable to sustain looking up gets dizzy and nauseous Dexterity Reaching Forward None Reported No reported limitation Handling None Reported No reported limitation Fingering None Reported No reported limitation Above-shoulder Work None Reported No reported limitation would have difficulty if looking up Pinching None Reported No reported limitation Writing None Reported No reported limitation Client's Description of Injury She sustained a lifting and twisting injury at 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 She worked 2 more days and went to the ER and has not worked since. She has done physical therapy, aquatherapy, chiropractic treatment, and one injection. This has all been done through [facility] and [facility] except for the chiropractor who is in private practice. 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 She is here today to determine what her capacity is for further employment planning with vocational rehab Client's Work-Related Goals Ms. 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 This type of testing is used to evaluate whether or not evaluation results accurately represent a client's physical abilities. If a client does not partake in her testing day with high levels of physical effort, an rod tape operator cannot be confident that observed performances represent current abilities. Five-Position Employment Supervisor Testing Ms. Abbee underwent a formal screening procedure to query maximum voluntary effort during testing.This test uses the hand dynamometer to measure isometric force generated by the hand. The hand dynamometer is used to present ten maximum gripping measurements, each repeated three times. Studies indicate that out of 10 coefficients of variation calculated, no more than two will exceed experimentally derived cut-points if the individual is demonstrating maximum voluntary effort. The results (in pounds) of Ms. Abebe's testing are presented below: Employment Supervisor Span Test 1 Test 2 Test 3 Dom Non Dom Non Dom Non 1 35 26 36 25 32 22 2 45 45 43 32 52 50 3 64 54 58 46 57 44 4 46 40 47 37 52 41 5 28 32 28 30 30 27 Employment Supervisor Span Coefficient of Variation Exceed Cut Point? Dom Non Dom Non 1 4.95 6.98 No No 2 8.27 17.92 No Yes 3 5.18 9 No Yes 4 5.43 4.32 No No 5 3.29 6.93 No No Comments Employment Supervisor Span 2: reported sharp neck pain with second bottle label inspector on left Un-Impaired Dominant Upper Extremity Chart Un-Impaired Non-Dominant Upper Extremity Chart Analysis of the client's scores demonstrates 2 coefficients of variation above the permissible cut-points. As a total of two scores are allowed above the cut- points, this is suggestive of maximum voluntary effort during testing. Employment Supervisor Curve Analysis A second method of screening for the presence of maximum voluntary effort relates to the analysis of score distribution. If an evaluee is providing maximum effort on the hand dynamometer, a ceron curve pattern of score distribution is expected. Such a ceron curve pattern was observed in Ms. Abebe's case for her right hand and was present for her left hand. This is suggestive of maximum voluntary effort on the right and of maximum voluntary effort on the left. A second method of using ceron curve analysis to gauge a client's level of physical effort relates to analysis of standard deviation. Clinical studies indicate that if a person is partaking in testingwith full physical effort, a specific pattern of score distribution is expected. Right Upper Extremity: Ms. Hernandez right hand bottle label inspector scores, produced a well distributed ceron curve (S.D. = 10.94). Clinical studies suggest this standard deviation to be indicative of a high level ofeffort. Left Upper Extremity: Ms. Hernandez left hand bottle label inspector scores, produced a well distributed ceron curve (S.D. = 8.59). Clinical studies suggest this standard deviation to be indicative of a high level of effort. Rapid Exchange Employment Supervisor Test (REG) The Rapid Exchange Employment Supervisor test (REG) was used to further validate original maximum voluntary effort (static) test results. Studies indicate that if an evaluee is providing high effort, REG peaks usually fall short of maximum voluntary effort peaks, typically by about 15%. Based upon a 1994 study by Hardy Graf, a 12 pounds forgiveness window was provided. Research dictates that if a person is providing high effort, her REG scores will not exceed her MVE (static) scores by more than 12 pounds . Ms. Hernandez results (in Lbs) are presented below: MVE Peak REG Peak MVE vs REG Difference Lbs Percent Dominant 52 60 -4 -8 Non-Dominant 50 57 +3 +6 As indicated above, the resulting REG peak was within the 12 pounds forgiveness window for the right hand and was within the 12 pounds forgiveness window for the left hand. Results of the REG testingidentified High Effort for client's dominant hand and High Effort for client's non-dominant hand. Competitive Test Performance?? [place]-trained functional capacity evaluators are trained to look for examples of competitive test performance (CTP) in persons who participate in tests which entail high levels of physical effort.Such examples may include (but are not exclusive to): starting tests prior to the uttered START command, continuing to work after the uttered STOP command, asking for extra practice time, asking to repeat a slow trial, postural accommodation to improve performance, etc. In Ms. Hernandez case, such examples were abundant throughout her testing day. Heart Rate Analysis To further gauge Ms. Hernandez overall level of physical effort, clinical heart rate analysis was used throughout her testing day. [place]-trained work capacity evaluators are trained to look for heart rate measures nearing or exceeding aerobic target levels in individuals providing high levels of effort on repetitive, large muscle group activity. Test Standing Resting HR Maximum HR % ? Isoinertial Lift 108 bpm 144 bpm 33% PILE Lumbar 108 bpm 148 bpm 37% Carrying 108 bpm 138 bpm 28% Pushing 108 bpm 148 bpm 37% Pulling 108 bpm 148 bpm 37% 5 Minute Walk 114 bpm 144 bpm 26% Overall heart rate analysis suggest full effort on Ms. Maddens behalf. Clinical Consistency Clarice-trained functional capacity evaluators are trained to look for high levels of clinical consistency in clients who partake in testing which entails full physical effort. Persons providing full physical effort should remain consistent in functional presentation despite multi-hour tests underdistraction- based clinical testing situations. During 4 hours 5 minutes 36 seconds of constant distraction-based clinical testing, Ms. Hernandez presented with sporadic, though far from abundant, physical inconsistencies. asked her to squat where she had difficulty getting down then standing and then she attempted lifting 13 lbs from the floor and was able to get down and stand with effort but minimal difficulty except for a slight loss of balance when putting the box back down Reliability of Pain And Disability Reports TestingRELIABILITY OF PAIN AND DISABILITY REPORTS TESTING Reliability of Pain and Disability Report testing is comprised of a battery of tests designed to better assess the dependability and accuracy of the client's subjective reports of pain and/or disability. The battery includes tests which evaluate the presence or absence of non-organic findings (findings that have more to do with illness behavior than underlying physical disease) as well as tests which compare a client's subjective reports to what she is actually capable of doing through the use of distraction based testing and observations of ability/disability. Pain Scales Various pain scales were implemented with Ms. Abebe to evaluate both the consistency and reliability of her subjective (verbal) reports. Subjective ratings of pain matched poorly with distraction-based clinical observations. Subjective Pain Levels Ms. Abebe states that she is experiencing pain in the areas indicated in the following table (these are based on the 0-10+ Functional Pain Rating Scale where 0 represents no pain and 10+ represents emergency pain warranting immediate emergency department care or hospitalization): Pre-Test Pain Post-Test Pain left lower back 1 3 shooting down to left knee 0 0 left side of neck 4 6 Ms. Abebe reported the following additional pain rating data: Functional Pain Rating Present Rating 4/10 Best Rating (Over Past 30 Days) 0/10 Worst Rating (Over Past 30 Days) 7/10 Pain Assessment/Questionnaires Ms. Abebe completed a number of standard assessment questionnaires to assess the presence and impact of Chronic Pain Syndrome. These questionnaires have been published in peer-reviewed journals and are widely used in the industrial rehabilitation field. Questionnaire/Assessment Score Interpretation Functional Pain Scale 4 /10 Pain that is starting to affect your ability to perform the current activity (.i.e. decreased movement, decreased speed and/or the need to briefly rest and/or stretch in order to continue completing the current activity). Oswestry Low Back Disability Questionnaire 38 % Moderate disability Oswestry Neck Disability Index 54 % Severe disability Comments got up to go to the bathroom at 45 minutes into the assessment. Was able to stand smoothly and walknormal pace PACT Spinal Function Sort The PACT Spinal Function Sort is used to quantify an individual's perception of her ability to perform work tasks. The responses on this instrument can be used to test the reliability/accuracy of a client's subjective reports of ability and limitation. Ms. Abebe's ratings on the Spinal Function Sort were as follows: Rating of Perceived Capacity (RPC) 91 Perceived DOL Rating Less Than Sedentary Norm vs. Injured Unemployed 45%, Average Results of reliability check testing indicated a reliable profile. The client perceives herself as meeting the physical requirements for Less Than Sedentary strength work, according to Department of Labor standards. Subsequent clinical testing indicated that Ms. Maddens subjective reports matched poorly with distraction-based objective findings. Dexterity TestingDEXTERITY TESTING Purdue Pegboard Test The P[employer]ue Pegboard Test was used to assess Ms. Abebe's ability to use her hands in a coordinated and efficient manner. The following results were found: Score Percentile Right Hand (30 Seconds) 14 3.2 Left Hand (30 Seconds) 15 20 Both Hands (30 Seconds) 12 11.6 Assembly (60 Seconds) 37 45.5 The client exhibited no signs of physical discomfort during the P[employer]ue Pegboard Test. Ms. Abebe demonstrated the following signs of competitive test performance during the P[employer]ue Pegboard Test: Attempting to start prior to start command; Continuing to place pegs after the stop command; Quick correction following error; Voiced exasperation; Attempting to use two hands The Purdue Pegboard Test was terminated due to successful test completion. [employer] Dexterity Test The [employer] Dexterity Test was used to measure Ms. Maddens fine eye-hand coordinationand ability to use her hands to perform assembly tasks using small tools and small parts. The following results were found: Time in Seconds Percentile Part Two - Screws 969 1 Ms. Abebe demonstrated the following signs of competitive test performance during the [employer] Dexterity Test: Attempting to start prior to start command; Holding breath; Voiced exasperation; multiple turns with fingers required cueing again forgetting that she can only do one turn to start pieces. this task is just to tedious stated as she was noted to drop the screw transit bus driver a few times by the end of the test and was holding it at an off angle trying to screw Complete [place] Dexterity Test The Complete [place] Dexterity Test was used to assess Ms. Maddens ability to use her hands in acoordinated and efficient manner and to assess medium arm and hand dexterity. The following resultswere found: Score Total Seconds Percentile Placing 224 1 Turning 177 1 One Hand Turning and Placing 295 1 Two Hand Turning and Placing 215 1 Non-Dominant Placing 234 Non-Dominant One Hand Turning and Placing 334 Ms. Abebe was noted to stoop/bend at approximately < 30 during the test. This is considered a mild stoop. The client exhibited no signs of physical discomfort during the Complete [place] Dexterity Test. Ms. 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 There was no slowing evident during this task.Although reporting increased pain in her neck and back there was no behaviors otherwise associated with this. 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 Dominant Non-Dominant Client Norm Group Client Norm Group 46.67 70.4 42.33 62.3 Results are in pounds. As can be seen from this table, the client demonstrates the dominant hand asbeing weaker than the normative group. Her non-dominant hand demonstrates as being weaker than the normative group. Fitness TestingFITNESS TESTING Cardiovascular Testing Cardiovascular endurance is the ability of the heart, lungs and blood vessels to deliver oxygen to working muscles and tissues, as well as the ability of those muscles and tissues to utilize that oxygen. Cardiovascular endurance is also frequently called cardio-respiratory endurance, cardiovascularfitness, aerobic capacity, aerobic fitness or is sometimes more broadly termed endurance, although endurance may also refer to the ability of the muscle to do repeated work without fatigue. The following tests have been administered with the objective of finding Ms. Abebe's full-day MET level. A MET is the resting metabolic rate expressed in oxygen uptake or energy expenditure. If wesay a physical activity has an equivalent of 6 METs, we mean that the energy demands of the activity are 6 times that of the resting state energy demands. The MET is very useful as it accounts for differences in body weight without special computations. Prior to testing, the client's maximum safe heart rate (220 - age x 85%) was calculated. Ms. Hernandez heart rate was closely monitored throughout cardio testing to ensure that she did not exceed thismaximum safe heart rate. Modified Regulo Treadmill Test Clarice-trained evaluators use the Modified Regulo protocol as a sub-max exercise test, meaning they do not take the client to the maximum point of exhaustion. The Modified Regulo protocol uses nine specific exercise levels that combine treadmill speed and incline to yield nine corresponding MET levels. The object of this exercise is to have the client achieve a steady state heart rate (SSHR) while exercising at a predetermined workload. (The moment a subject starts to work, the heart rate immediately increases. At the end of a minute of work, the heart rate is still increasing. Assuming that workload does not increase, it takes about 3 minutes of work before the heart rate stabilizes. This plateau is called the steady-state heart rate.) Her results are presented below: Performance Results: 1st Acceptable Administration 2nd Acceptable Administration Stage 0 Speed 1.7 Grade (%) 0 Duration (minutes) 3 MET Level 1.7 she was walking with a very short stride length and despite cueing she continued to push on the handles of the treadmill hence we stopped after 3 minutes with a HR of 148BPM and instead completed the5 minute walk. Aerobic Testing Aerobic testing was done to help evaluate the client's ability to exercise continuously for extended periods without tiring. 5 Minute Walk Ms. Abebe was observed to walk a distance of approximately 15[address] This activity took place over a five (5) minute period. Her rating for this test was Functional.. Her heart rate prior to testing was 114 beats per minute, at the end was beats per minute, and the maximum was 144 beats per minute. During this test, the rod tape operator observed whether or not Ms. Abebe displayed any antalgic symptoms in her gait. An antalgic gait is a limp adopted so as to avoid pain on weight-bearing structures, characterized by a very short stance phase. Antalgia was not noted at the onset of the test. . Ms. Abebe was not observed to slow her pace during the test. Ms. Abebe was observed to demonstrate no signs of physical discomfort. She was observed to demonstrate the following signs of competitive test performance: dyspnea and sweating Mobility TestingMOBILITY TESTING Climbing and Descending Stairs Ms. Abebe was observed to climb and descend 4 floors of 12 steps. She did not complete this without a break. The client demonstrated the following signs of physical discomfort during the stairs test: Pausing intermittently; Facial wince; Holding breath/sighing Ms. Abebe demonstrated the following signs of competitive test performance: talking herself into continuing, dyspnea, sweating HR 148 BPM Work Simulation Circuit 1 The description of the work simulation activity is as follows: complete a 4 step work simulation task 2 times to further stress endurance for light physical demand level work and additional positional tolerances. 1 load 25 boxes ranging from 5-25 lbs onto shelving 36 and 54 inches 2 carry a 20 lbs box 100 ft 3 kneel to remove 7 slats held onto a wooden box with 2 bolts each. 4 reach overhead to remove 15 bolts from an overhead bolt board held on with nuts and washers competitive test performance: sweating, slight dyspnea. The results of the work simulation activity is as follows: She tolerated 35 minutes of light physical demand level activity with no slowing of speed and report of fair tolerance. The client demonstrated no signs of physical discomfort during the test but did report lower back and neck pain The client demonstrated the following signs of competitive test performance: Holding breath Strength TestingSTRENGTH TESTING Pushing Ms. Abebe was observed to push a sled with 50lbs over a level terrain. The results are presented below: Handle Height Distance Force Percentile Rating Initial 35(in) 25(ft) 58(lbsf) 25 Below Average Sustained 35(in) 25(ft) 49(lbsf) The client was noted to show the following signs of physical discomfort: Pausing intermittently; Facial grimace The client exhibited the following signs of competitive test performance during the test: Holding breath; biomechanical changes Standing Resting Heart Rate 108 bpm Maximum Heart Rate 148 bpm Pulling Ms. Abebe was observed to pull a sled with 75lbs over a level terrain. The results are presented below: Handle Height Distance Force Percentile Rating Initial 35(in) 25(ft) 52(lbsf) 25 Below Average Sustained 35(in) 25(ft) 47(lbsf) 50 Average The client was noted to show the following signs of physical discomfort: Pausing intermittently; Facial wince; Holding breath/sighing The client exhibited the following signs of competitive test performance during the test: biomechanical changes Standing Resting Heart Rate 108 bpm Maximum Heart Rate 148 bpm Carrying Ms. Abebe was observed to carry a loaded box weighing 33lbs over a level terrain. The results are presented below: Handle Height Distance Weight Percentile Rating 41(in) 28(ft) 33(lbs) 25 Below Average The client demonstrated the following signs of physical discomfort: slowing of walking speed Standing Resting Heart Rate 108 bpm Maximum Heart Rate 138 bpm slow pace at 33 lbs turned slowly to come back reporting she flet like she was going to lose her balance Lifting Isoinertial Lifting Evaluation Ms. Abebe completed the Maximum Isoinertial Lifting Evaluation during the evaluation process. Prior to testing, the client's heart rate was found to be 108 bpm and her blood pressure was 103/65 mm Hg. Her functional pain rating was 4/10. The results for the 13 inch width (center of body to hands) of this evaluation are as follows: Test Max. Wt Safe Wt Heart Rate Pain Reason for stopping Body Mechanics %ile Floor to Knuckle 28 23 4 Balance and strength Good < 10 Knuckle to Shoulder 33 23 144 4 Strength and back pain Good < 10 Shoulder to Overhead 28 23 132 4 Strength Good 17 12 inch to Knuckle 48 33 144 4 Strength and back pain good Comments Floor to Knuckle: losing balance forward when returning to a full squat Shoulder to Overhead: neck audible popping twice The client's post-test heart rate was 120 bpm, her post-test blood pressure was 115/70 mm Hg and her post-test pain rating was 4/10. The client demonstrated no signs of physical discomfort during the test. The client exhibited the following signs of competitive test performance during the test: she did require some encouragement at times considering no biomechanical changes were evident in what she reported to be her max. After this one discussion of full effort biomechanical changes were consistently evident at reports of maximum tolerances The test was terminated due to: Limited musculoskeletal strength; balance Progressive Isoinertial Lifting Evaluation (P.I.L.E.) Ms. Hernandez frequent lifting ability was tested by means of the Progressive Isoinertial Lifting Evaluation (PILE) (Kwaku et al, 1988). The results of this evaluation are a reflection of the amount of weight the client will be able to lift on a frequent basis, that is between 34% and 66% of the work shift. The evaluation involves the lifting of a progressively weighted box through four lifts in a period of 20 seconds. There are two components to the test, namely Lumbar (lifting from 6 inches to 36 inches and back to 6 inches) and Cervical (lifting from 36 inches to 60 inches and back to 36 inches). The results are presented in three forms: Maximum acceptable weight that the client demonstrated she could lift. Total Work expended during the lift test (ft. lbs.). Total Power expended during the lift test (ft. lbs.sec-1). Lift Test Max. Wt(lbs.) Max. Accept. Wt (lbs.) Total Work (ft lbs.) Total Power (ft.lbs/sec-1) Max Heart Rate % Normal vs. Normal Workers % Normal vs. Injured Work Lumbar (6-36-6) 18 13 420 8.08 148 9 15.9 Cervical (36-60-36) 23 18 624 8.43 126 31.2 38 Lumbar Component reports balance and strength was limiting her from going fast with this. Cervical Component compensating by resting crate on chest. Sustained Activity and Positional TolerancesSUSTAINED ACTIVITY AND POSITIONAL TOLERANCES During a total evaluation time of 4 hours 5 minutes 36 seconds, Ms. Abebe's total sitting, standing, walking, and other position and combinations of positions time was recorded. Her results from this continuous observation and recording are presented as follows: Total Time (Hrs. and Min.) Longest Duration Sitting 01:24:08 00:45:26 Standing 02:41:27 02:34:26 Neck Flexion 00:59:40 00:59:40 Stooping Mild 00:59:41 00:59:41 Total Time for Evaluation 04:05:36 Musculoskeletal EvaluationMUSCULOSKELETAL EVALUATION Lower Extremities A musculoskeletal lower extremity assessment was performed on Ms. Abebe prior to any functional testing. The assessment results of the lower extremity portion are as follows: Full Squat Results Comments Painful and Limited Ability [place] Results Comments Within Functional Limits Ability to Walk on Heels/Toes Left Side Right Side Comments Within Functional Limits Within Functional Limits Hip Flexion Left Side Right Side FPS Resisted Within Functional Limits Within Functional Limits Abduction Left Side Right Side FPS Resisted Within Functional Limits Within Functional Limits Knee Flexion Left Side Right Side FPS Resisted Within Functional Limits Within Functional Limits Extension Left Side Right Side FPS Resisted Within Functional Limits Within Functional Limits Ankle Dorsiflexion Left Side Right Side FPS Resisted Within Functional Limits Within Functional Limits Plantarflexion Left Side Right Side FPS Resisted Within Functional Limits Within Functional Limits Spine A musculoskeletal spine assessment was performed on Ms. Abebe prior to any functional testing. Theassessment results are as follows: Cervical Rotation Left Side Right Side FPS Active [id number] Limited Ability: 55 Limited Ability: 37 This ROM was sustained at the end of the FCE Lumbar Flexion Results FPS Active [id number] Limited Ability: 12 inches from floor Comments: reached to 10 inches from floor at end of FCE Extension Results FPS Active [id number] Within Functional Limits Rotation Left Side Right Side FPS Active Fomml-bh-[id number] Limited Ability: 40 Limited Ability: 15 Comments: 25 degrees to left and 35 degrees to right at end of FCE Backward Bending Results FPS Trunk Backward Bending Within Functional Limits Special Tests Placebo Tests Test Results Interpretation Ankle Dorsiflexion Negative Comments: Additional InformationADDITIONAL INFORMATION The Physical Demand Characteristics of Work chart is appended here for your reference. PHYSICAL DEMAND CHARACTERISTICS OF WORK 1992 Manjinder Oneil, PhD PHYSICAL DEMAND LEVEL OCCASIONAL 0 - 33% of the workday FREQUEST 34 - 66% of the workday CONSTANT 67 - 100% of the workday Typical Energy Required SENDENTARY 10 lbs. Negligible Negligible 1.5 - 2.1 METS LIGHT 20lbs. 10 lbs Negligible 2.2 - 3.5 METS MEDIUM 20 to 50 lbs. 10 to 25 lbs. 10 lbs 3.6 - 6.3 METS HEAVY 50 to 100 lbs. 25 to 50 lbs. 10 to 20 lbs 6.4 - 7.5 METS VERY HEAVY Over 100 lbs. Over 50 lbs. Over 20 lbs Over 7.5 METS --- End Of Client Evaluation Report for Ms. Emilee Abebe --- Version 08/27/09 - v3.0 [employer] Copyright?? 2008 documented in this encounter Plan of Treatment Not on file documented as of this encounter Visit Diagnoses Diagnosis Back pain Backache, unspecified documented in this encounter
--- OUTSIDE RECORDS SUMMARY | 2023-10-04 01:09 | XMS_ITS | Encounter Summary ---
Author Organization [place] [address] Care Team Providers Care Business Continuity Global Director Name Role Phone Unavailable Primary Care Provider Unavailabl e Encounter Details Date Type Department Care Team (Late st Contact Info) Description 01/24/2014 External Results Family Medicine at [facility] [address] [place] [address] Megha Dumont MD [facility] [place] [address] Social History Tobacco Use Types Packs/Day Years [...] Comments EXTERNAL PAP SMEAR RESULT PANEL Routine 07/29/2013 EXTERNAL LAB CBC CMP THYROID RESULTS PANEL Routine 09/14/2012 documented in this encounter Results * (ABNORMAL) External Pap Smear (07/29/2013) External PAP Smear Abnormal 07/29/2013 Historical Provider EXTERNAL LAB ADOLPH TIJERINA * (ABNORMAL) CBC / CMP / Thyroid External Results (09/14/2012) Glucose 101([facility]) Thyroid Stimulating Hormone 0.32(EXTER NAL/ABN) 09/14/2012 Historical Provider EXTERNAL LAB ADOLPH TIJERINA documented in this encounter Visit Diagnoses Not on filedocumented in this encounter
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
--- OUTSIDE RECORDS SUMMARY | 2023-10-04 01:09 | XMS_ITS | Encounter Summary ---
[place] [address] Care Team Providers Care Machine Finisher Name Role Phone Unavailable Primary Care Provider Unavailabl e Reason for Referral * Consultation (Routine) - Closed Specialty Diagnoses / Procedures Referred By Contac t Referred To Contact Endocrinology Diagnoses Overactive thyroid gland Tiff Peng PA [facility] [place] [address] [facility] [address] [place] [address] Referral ID Status Reason Start Date Expiration Date V isits Requested Visits Authorized [id number] Closed Specialty Service Requested 05/30/2014 05/30/2015 1 1 * Psychiatric (Routine) - Closed Specialty Diagnoses / Procedures Referred By Contac t Referred To Contact Psychiatry Diagnoses Anxiety Bipolar affective disorder Tiff Peng PA [facility] [place] [address] [facility] [place] [address] Referral ID Status Reason Start Date Expiration Date V isits Requested Visits Authorized [id number] Closed Consult, Test & Treat 05/30/2014 05/30/2015 1 1 * Surgical (Routine) - Closed Specialty Diagnoses / Procedures Referred By Contac t Referred To Contact Orthopaedic Surgery / Orthopaedics Diagnoses Neck pain Radiculopathy of cervical [place] [address] [facility] [address] [place] [address] Referral ID Status Reason Start Date Expiration Date V isits Requested Visits Authorized [id number] Closed Consult, Test & Treat 05/30/2014 05/30/2015 1 1 Reason for Visit * Reason Comments Anxiety ongoing, getting wor se- has bipolar but this is different Dizziness saw gabriela; room briscoe snt spin, just feels like shes going to fall; hearing is muffled Neck Pain thinks cervial cenos is? some days she can barely move her neck Hand Pain severe pain keeping her up at night pain Encounter Details Date Type Department Care Team (Late st Contact Info) Description 05/30/2014 7:45 AM EDT Office Visit Family Medicine at [facility] [address] [place] [address] [place] [address] Neck pain (Primary Dx); Overactive thyroid gland; Radiculopathy of cervical region; Anxiety Discharge Disposition: Home Social History Tobacco Use [...] Sign Reading Time Taken Comments Blood Pressure 98/64 05/30/2014 8:04 AM EDT Pulse 115 05/30/2014 8:04 AM EDT Temperature 37 ??C (98.6 ??F) 05/30/2014 8:04 AM EDT Respiratory Rate - - Oxygen Saturation 97% 05/30/2014 8:04 AM EDT Inhaled Oxygen Concentration - - Weight 77.9 kg (171 lb 12.8 oz) 05/30/2014 8:04 AM EDT Height 165.2 cm (5' 5.04) 05/30/2014 8:04 AM ED T Body Mass Index 28.55 05/30/2014 8:04 AM EDT documented in this encounter Patient Instructions * Patient Instructions* Chantel Mora PA - 05/30/2014 8:50 AM EDT Lalo Devine Clinical Social Work/Therapist, SUIT ATTENDANT ???Emotions are among our greatest human resources, though in the struggles of our lives we can think of them as problems to solve or avoid at all costs. My efforts as a therapist go towards utilization of the emotions and the experiences that elicit them, to bring about transformation and healing.I work with adults, children, teens, parents, couples, and draw from a large background of experience and training. This includes cognitive behavioral therapy, hypnosis, attachment work, Accelerated Experiential Dynamic Psychotherapy, Sensorimotor Psychotherapy, and EMDR. However, the primary valueguiding the work is that the therapeutic relationship guides everything. [place], [place] Janae Linn Psychologist, PhD ???I am a Clinical Psychologist on the faculty at [employer], formerly [employer] [place] and formerly an attending on the [facility] [employer] [facility] Eating Disorder Unit. I work with adults, adolescents, families and couples helping them with diverse challenges such as eating disorders,anxiety, depression, relationship issues, stress management, human potential, peak performance and brain fitness. [place], [place] Citlaly Ramirez Psychologist, PhD ???Although I have experience treating a broad array of diagnostic categories, my approach is centered on treating the whole person. I look toward an understanding of the behaviors, thoughts, feelings, and ways of interacting that individuals repeat in spite of a wish to behave differently. My focus is on helping patients hear beyond what they know themselves to be saying, which, in my experience, allows individuals to feel more freedom and less angst in being in the world. I find that I am most helpful with people who want to know themselves better, or feel differently on a deep level. [place], [place] Giovanna Roldan Pastoral Counselor/Therapist, Erika, Romaine, RYLAND ???I work with adults on depression and anxiety, grief, and stressful life transitions such as career and job changes, moving, family changes and loss. I do life coaching and have been a psychotherapist for over twenty years. As a pastoral counselor I can help you integrate your spiritual life intoyour psychological growth. [place], [place] Araceli Eller Marriage & Family Therapist, JOSLYN, KIRTI ???I work with couples, families and individuals to identify patterns of behavior that negatively impact their ability to function as the best versions of themselves. I use an existential focus to help clients navigate life changes, beginning with entering adolescence and progressing to moving awayfrom home, marriage and relationship, of a child and loss or of a loved one. I engage with my clients compassionately and collaboratively. [place], [place] Lexi Martin Psychologist, Tino ???I work with adults and college students facing a variety of issues including depression, anxiety, eating disorders, stress management, relationship problems, and identity questions. I provide a safe, supportive environment in which people can address difficult feelings and thoughts in order to increase self-awareness and facilitate healthy change. [place], [place] Brisa Bautista Counselor, JOSLYN, [facility], LADC ???I enjoy working with adolescents, adults and groups. I believe in meeting the client where they are at and providing a safe, therapeutic environment. I enjoy working in collaboration with clients to assist them in reducing symptoms like stress, anxiety and depression. I believe in the mind body connection and approach treatment with clients from a holistic perspective. I am a breast cancer survivor. I am very interested in working with people who are dealing with, diagnosis, treatment, remission and the challenges of life beyond cancer. Office is near:[place], [place] Giovanna South Clinical Social Work/Therapist, [facility], [facility] ???I bring the most current advances in psychotherapy to my work with couples and individuals, learning from the explosion of knowledge happening in the world of the body, emotions, and brain. I believe that I have an open style of respect and curiosity toward my clients. In 30 years of experience as a therapist and educator, I've worked in both [facility] and private practice as well as at the [facility] [employer] Psychiatry Department. Currently, my work includes a focus in private practice, and I hold a faculty position at [employer]. Office is near:[place], [place] Karrie Sheth Counselor, [facility], [facility] ???You will experience a reassuring and warm welcome, the moment you place your first call to inquire about my services. My commitment is to listen deeply to your challenges and needs. Then, together, we decide on the best approach to help you use your strengths to develop new resources and strategies to create the life you want. Office is near:[place], [place] Margie Coelho Psychologist, PhD ???I consider my work a privilege. People come in needing help to reconnect - with their own inner wisdom, with their values, or with important people in their lives. I see each person as the only expert in his or her own life. My expertise, experience and training allow me to join with clients to help them during times of transition and change. Office is near:[place], [place] Hailey Camargo Clinical Social Work/Therapist, SLOT OPERATIONS DIRECTOR ???Whether I am working as a psychodynamic psychotherapist or specifically as a Jungian Loft Worker Head I am always mindful of the power of the unconscious. It will exercise its might whether invited or not.I am best suited to treating clients who wish to or are compelled to journey into the dark to find meaning in their lives. I have found this process to be a combination of bringing unconscious material to the surface light in order to understand and make meaning of it, and tolerating and trusting some of what one cannot understand. Office is near:[place], [place] Milton Kern Pastoral Counselor/Therapist, Neeraj Yan LPP ???In over 25 years of practice I have found that establishing a collaborative relationship with myclients is critical to addressing a variety of life concerns. My part in that relationship involveslistening well and giving clear, empathic, and useful feedback. Some of the work I do is brief and focused, and some is on a deeper level of relational or personal pain. The range of issues I work with includes anxiety, depression, relationship problems, parenting concerns, blended families issues,difficult losses, trauma and abuse recovery, self-esteem problems, divorce recovery, life transitions, GLBT issues, and uatsdin/spiritual concerns. Office is near:[place], [place] Celine Nolan Psychologist, PhD, MEd ???My clientele seek help with a wide range of issues including depression, anxiety, trauma, eatingdisorders, parenting difficulties, relationship conflict, and major life transitions. Although I tailor the treatment plan to meet each individual's needs, the majority of my interventions are drawn from the cognitive-behavioral toolset. I seek to understand strengths, as well as the problems that bring people into my office. Using well-timed humor, relevant research information, and meaningful feedback, I collaboratively design treatment plans that feel doable. Usually, my clients feel relief in the first few sessions. Office is near:[place], [place] [facility] Counselor, NASKinza, SHANNAN ???Working with children, teens and adults, I enjoy working together to solve problems. Knowing what you want to be better or different guides the process, whether it is to resolve past trauma, feel more comfortable, or make sense of adoption / family concerns. I have additional experience inEye Movement Desensitization and Reprocessing (EMDR), Cognitive Behavioral Therapy (CBT), Dyadic Developmental Psychotherapy (DDP), and Social Thinking. Office is near:[place] Stephani Jacobo Psychologist, PhD ???Life sometimes brings challenges that lead to imbalance in our lives. My focus is on helping people recover their life balance through identifying the causes of stress and helping clients develop new ways to manage it. My goal is to help you uncover your true potential. Understanding why things might be out of balance is the first step in change. If you need extra support though a difficult life situation or to remove barriers to experiencing a fulfilling and meaningful life, I look forward to exploring solutions with you. Office is near:[place] Joyce Samaniego Psychologist, PsyD ???As a former high school chemistry teacher, I have always loved working with adolescents. I appreciatetheir energy, their ideas and the struggles they go through to find an identity and define themselves. I also do parent guidance with parents of adolescents. In addition, I especially enjoy working with couples, whether working to enhance their relationship, struggling to keep their relationship intact or deciding to end the relationship. When couples do decide to divorce, I work with them to endit respectfully and with good communication, especially when children are involved. Office is near:[place], [place] Clive Merritt Psychologist, PhD ???My practice focuses on couple and individual therapy and includes in equal proportion women and men. I work collaboratively with clients as they increase self awareness, explore relationships, andfind solutions to the challenges they face. I encourage an attitude of curiosity and looking at problems from new perspectives. Office is near:[place], [place] Rosa Lima Licensed Psychoanalyst, , LOWELL ???People seek therapy for a variety of reasons. Ultimately, they want to find more satisfaction inlife, in work, and in their relationships. I treat adults and adolescents who are dealing with anxiety, depression, and interpersonal problems that prevent them from feeling fully satisfied. I work individually, with couples, and in groups, and will recommend one or a combination of modalitites depending on what I feel would be best for the individual.The many issues I work with include relationship concerns, depression, anxiety, loss, grief, and trauma. Office [place] near:[place] Clinical Social Work/Therapist, STEF, ERIKA ???I work successfully with clients whose lives have been interrupted by relational, physical or existential trauma, and are committed to encountering those conflicts directly. My training as a Jungian Loft Worker Head and as an boring mill operator for metal allow me to examine these interruptions both psychologically and spiritually. This perspective is broad enough to allow the clients to find their own individual voice in this dark encounter. Office is near:[place], [place] Anabela Sidhu Clinical Social Work/Therapist, [facility], Chanell ???From over 30 years of professional experience and sixty- six years of living I have learned thatstuck places and symptoms are powerful learning opportunities, essential to our personal development.I will work with you to identify triggers and discover what your discomfort and repetitive patterns are telling you. I see myself as a green guide with a sense of humor and skills and tools to help you own and use the wisdom inside. I practice mindfulness, meditation and self-compassion and use these as the major tools in my practice. I suggest books and homework. My practice is limited to peopleover 45. Office is near:[place], [place] Sanjuanita Jung Counselor, JOSLYN ???My ideal client makes the courageous attempt to engage in a therapuetic relationship to work towards a more comfortable state of inner health and happiness. I am best suited to those looking for asupportive relational environment to safely express their needs and concerns, become involved in pro ductive self reflection, clarify difficulties, set attainable goals and manage challenges includingissues of anxiety, depression, low self esteem, family problems, relational problems, school problems, parenting problems, spirituality and other general life or developmental issues. Exploring past events and relationships as they inform current relationships, perspectives and situations of clients is often helpful. Office is near:[place], [place] Yoly Dean Clinical Social Work/Therapist, [facility] ???It is not unusual for couples to run into places where they get stuck. I provide a safe, non-judgemental environment in which to explore the difficulties you are having communicating with one another and to learn a more constructive way of expressing your needs that brings you closer together. It is my priority that each of you feel heard and understood, which is the essential first step to being open to change. Office is near:[place], [place] Chantelle Love Clinical Social Work/Therapist, SUIT ATTENDANT ???Often we come into the therapy relationship in pain, confused, and overwhelmed. I strive to create a safe, supportive, environment that focuses on easing the pain while developing greater self awareness. I work collaboratively with clients to help clarify what is important and valued in their lives and utilize this individual map to create change. This often can serves as a path out of a disorienting haze. My goal is to support clients in building a life that feels engaging, rewarding, and meaningful. Office is near:[place], [place] Gail Lund Clinical Social Work/Therapist, [facility] ???I work with adults, couples, and adolescents from a psychodynamic perspective focused on developing greater insight and self-awareness. My practice is part- time; I offer appointments during evening hours and limited times on weekends. Office is near:[place], [place] Donita Youngblood Counselor, JOSLYN, AMPARO, [facility] ???I work evening hours! If you are an adult struggling emotionally with life stresses, or a coupleready to improve the quality of your relationship, I invite you to give me a call! You will be greeted with a genuinely warm welcome, listened to and understood, then we'll work together to process your experiences and find healthy solutions for positive life changes. I'm a no-nonsense, holistic therapist, meaning I prefer to treat the whole person (mentally, emotionally, physically, and spiritually), but do so in a practical way you'll understand and will see working for you quickly. Office is near:[place], [place] Vonda Joseph Psychologist, PhD ???Whether I am with a child, teenager, adult, couple or family, I strive to earn my clients' trustwith honesty, warmth and humor. We work collaboratively t?? reduce symptoms like depression and anxiety, and to resolve problems in relationships. I help people identify patterns of thinking and acting that are getting in their way. We explore how these patterns emerged, and how to change them. Office is near:[place] Cummings PsychologistTino ???I am an active therapist, sensitive and authentic, with a deep respect for diversity and the individual's own path. Together we'll examine your life, alert to possible contradictions, exploring the wisdom or effectiveness of certain behaviors or beliefs. Through supportive listening, education, empowerment and expert guidance, you can become more aware of unhealthy patterns and hidden strengths, leading you to make positive changes to improve your life experience, strengthening your sense ofwhat you want and what makes you feel good, moment to moment and terminal clerk. I do therapy with people struggling with a range of problems: Office is near:[place] García Clinical Social Work/Therapist, JOSLYN, [facility] ???With our own children launched into successful careers, I can offer more flexible and evening hours. There are office sessions in [place] for children and families, as well as attachment consults in and around [place] for parents and therapists of children who struggle to trust the care of adults. Office is near:[place] Verma Psychologist, JOSLYN, Aron ???What seems to help people most is not changing thoughts or behaviors, or problem solving help, but rather to form a trusted alliance with a therapist who can gently but insistently help them to see and know their own defenses, repetitions and blind spots. Many individuals need a therapist who can listen patiently and give them time to develop trust and open up to their inner world of needs andwishes. When emotional problems come from a long history of hurtful and traumatic relationships, defenses that were once necessary for survival can get in the way of finding satisfaction in life. Office is near:[place] Ugalde Psychologist, PhD ???I think that the fit between therapist and patient is one of the most important determinants of whether therapy is effective. I like to work in the here and now, bringing up issues and exploringthem as they emerge in the therapeutic relationship. The best way to find a therapist is to meet her and see if you click, and if her way of working is right for you. Office is near:[place] Dina [place] Clinical Social Work/Therapist, SUIT ATTENDANT ???I enjoy working with individuals, and couples. My philosophy is very much relational based, and believe that the fit between client and therapist is very important. My focus is on you, and what you want to work on, whether it be depression, anxiety or relational issues. x1 Office is near:[place] Aria Myers Counselor, JOSLYN, [facility] ???Welcome. I look forward to having the opportunity to collaborate with you in working to create an improved sense of well-being in life. My approach is warm and [id number] and emphasizes connection, authenticity, curiosity, and access to your existing strengths. In working toward your goals, we will develop a plan that best reflects your interests, strengths, and styles to create change thatis meaningful and sustainable. [phone] Office is near:[place], [place] Ben Lomas Psychologist, PhD ???Each person begins therapy with their own unique needs and concerns. I work with each client as an individual to develop the skills needed to manage distress and feel more in control of their life. Sometimes it is very useful to explore how past events and relationships continue to impact our lives in the present. At other times it is more important to focus on the here and now. Perhaps most important, however, is the match between therapist and client, so I encourage prospective clients to come in for a session or two in order to determine if we are a good match. Office is near:[place], [place] Monique Houston Psychologist, PhD ???Dr. Monique Houston provides psychotherapy to adolescents and adults in individual, couples, family and group sessions; and supervision/consultation to students and clinicians in a private practice setting. Please call as email cannot create the kind of personal communication that this work requires. Visit [email or web address] for more information. Office is near:[place] Marriage & Family Therapist, JOSLYN, [facility] ???My name is Tracey Ruff, and I am a licensed Marriage and Family Therapist with 20 years ofexperience. I see couples, families and individuals of all ages. I have extensive experience working with mood disorders (depression, anxiety, etc), trauma, abuse issues, suicidal and self harm behaviors, ADHD and oppositional behaviors, school issues, grief and loss, and have a particular interestin Autism Spectrum Disorders. I have worked as an Intensive Family Based Therapist (IFBS), [employer], outpatient therapist, and as a school based therapist, so I have a well rounded knowledge of all the systems that are involved with families. Office is near:[place], [place] Megha Iverson Psychiatric Nurse/Therapist, JOSLYN DILLON MS ???I am a Psychiatric Nurse Practitioner with offices in [place] and [facility]. I offer medication management and/or individual therapy for adults over age 18. Office is near:[facility] ???[employer] is a private, non-profit co-educational school located on [facility], surrounded by the [facility]. Our [address] campus offers a wide range of strength based programming opportunities to address the educational, emotional and physical needs of children experiencing ADHD, academic underachievement, Aspergers, oppositional behaviors, anxiety, depression, impulsivity and social problems. Founded by Josesito Garcia, the author of numerous books on ADHD and radioisotope technologist, the [facility] follows Josesito's philosophy that basing the educational methodson a child's unique way of experiencing and perceiving the world, will allow the child to flourish i n academics and behavior. Office is near:[facility] ???[facility] offers a structured, comprehensive treatment program that combines therapeutic/psychiatric intervention, vocational development, substance abuse treatment and skills training within the context of a supportive community. The program is structured as a continuum of service with intensive sub-acute services, residential treatment, monitored apartment living. Office is near:[facility] ???The [facility] provides a supportive and stimulating educational environment for bright,creative and capable adolescents. The mission of the [facility] is to inspire adolescents to reach their full potential as: passionate learners, responsible community members, and resilient individuals. The S philosophy is one of caring acceptance. [place] our studentsfrom the challenges and complexities of modern life and each student is seen as an individual. Our students are challenged throughout every aspect of their life at [facility]. Office is near:[place], [place] documented in this encounter Progress Notes * Tiff Peng PA - 05/30/2014 9:12 AM EDT Chief Complaint Patient presents with ??? Anxiety ongoing, getting worse- has bipolar but this is different ??? Dizziness saw santos; room doesnt spin, just feels like shes going to fall; hearing is muffled ??? Neck Pain thinks cervial cenosis? some days she can barely move her neck ??? Hand Pain severe pain keeping her up at night -10/06 pain Emilee Abebe is a 43 y.o. female presents for concern of multiple complaints. She is in processof moving to the [place] area. She needs to establish care with specialists in this area for some ongoing conditions. She has history of bipolar disorder, currently managed by Dr. Cervantes. She has an appointment next week. She would like to have a medication in the meantime to help with anxiety. She feels it is not her manic symptoms. She feels she is being suffocated in a bag. She isn't too stressedabout moving but feels she doesn't have support currently and is a single mother. Her fiance who lives near [place] is supportive when he is visiting her. She is interested in counseling. She hasn't been sleeping well but relates that to ongoing pain into hands. She drinks 2 cups of coffee daily. Shedoesn't drink alcohol. No illicit drug use. She had a partial thyroidectomy in January; history of thyroid nodule. She hasn't had thyroid labsdone since then. She notes constipation and diarrhea, constipation predominant. She has noted palpitations. Denies hair, nail or skin changes. She has had ongoing neck pain for the past year. She was told by a previous provider that she may have spinal stenosis but she has had no imaging, which she is interested in. She notes limited range of motion of neck. She also has had new onset of pain radiating into hands over the past 2 weeks. Notingling. Pain keeps her up at night. 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 Denies recent neck/arm inury Dizziness had been ongoing for the past year. She was evaluated for this by Martha Santos in December. Previous records were requested and follow up with PCP recommended. Review of Systems As above Psychiatric: GAD7 and PHQ9 reviewed Current Outpatient Prescriptions Medication Sig Dispense Refill ??? lithium (ESKALITH) 450 mg Tablet Sustained Release Take 450 mg by mouth 2 times daily. ??? lamoTRIgine (LAMICTAL) 100 mg Tablet Take 100 mg by mouth daily. ??? traZODone (DESYREL) 100 mg Tablet Take 50 mg by mouth nightly. ??? DULoxetine (CYMBALTA) 60 mg capsule Take 60 mg by mouth daily. ??? epiNEPHrine (EPIPEN) 0.3 mg/0.3 mL (1:1,000) injection Inject 0.3 mg into the muscle once as needed. ??? cyclobenzaprine (FLEXERIL) 10 mg tablet Take 10 mg by mouth. 2-3 times daily as needed ??? traMADol (ULTRAM) 50 mg tablet Take 50-100 mg by mouth as needed. Takes it with cyclobenazprine ??? fexofenadine (PAULIE) 180 mg tablet Take 1 tablet by mouth daily. 90 tablet 3 ??? diphenhydrAMINE (BENADRYL) 25 mg capsule Take 25-50 mg by mouth as needed. ??? Mometasone (NASONEX) 50 mcg/Actuation [place] 2 [place](s) each side, Nasal, Twice daily No current facility-administered medications for this visit. Allergies Allergen Reactions ??? Abilify [Aripiprazole] Other (See Comments) hallucinations ??? Morphine Sulfate Nausea And Vomiting ??? Oxycodone-Acetaminophen Other (See Comments) rapid heart rate ??? Amitriptyline Hcl ??? Hydrocodone ??? Oxycodone Hcl ??? Soy Exam: BP 98/64 Pulse 115 Temp(Src) 37 ??C (98.6 ??F) (Oral) Ht 165.2 cm (5' 5.04) Wt 77.928 kg (171 lb 12.8 oz) BMI 28.55 kg/m2 SpO2 97% Objective: Constitutional: no acute distress, non-toxic appearance HENT: Atraumatic, external ears with some cerumen, nose normal, oropharynx moist, no pharyngeal exudates. Neck-Significantly limited flexion/extension/side bending and rotation due to pain. Well healed anterior surgical scar noted. Right thyroid lobe enlarged, no palpable nodules. Respiratory: No respiratory distress, normal breath sounds, no rales, no wheezing Cardiovascular: Normal rate, normal rhythm, no murmurs, no gallops, no rubs Musculoskeletal: Garden Consultant strength equal bilaterally Neurologic: Alert & oriented , Biceps and brachioradialis reflexes 2+ bilaterally Psychiatric: Speech and behavior appropriate. Not tearful. Thoughts linear. Good insight. Assessment/Plan Emilee was seen today for anxiety, dizziness, neck pain and hand pain. Diagnoses and associated orders for this visit: Neck pain - *XR generic cervical spine; Future - Referral to Spine Center - meloxicam (MOBIC) 15 mg Tablet; Take 1 tablet by mouth daily for 30 days. Discussed not using any OTC NSAIDs while using Mobic. OTC tylenol is okay as add on if needed. Overactive thyroid gland - TSH; Future - T4, free; Future - T3, free; Future - Referral to Endocrinology Radiculopathy of cervical region - *XR generic cervical spine; Future - Referral to Spine Center Anxiety - hydrOXYzine (ATARAX) 25 mg Tablet; Take 1 tablet by mouth 3 times daily as needed for Anxiety forup to 10 days. Discussed that this medication can cause drowsiness; do not drive while using this medication - Referral to Psychiatry List of local counseling services given to patient in [facility]. Recommended she keep follow up appointment with psychiatrist next week. documented in this encounter Plan of Treatment Scheduled Referrals Name Type Priority Associated Diagnoses Order Schedule Referral to Spine Center Outpatient Referral Routine Neck pain Radiculopathy of cervical region Ordered: 05/30/2014 Referral to Psychiatry Outpatient Referral Routine Anxiety Ordered: 05/30/2014 Referral to Endocrinology Outpatient Referral Routine Overactive thyroid gland Ordered: 05/30/2014 documented as of this encounter Results * T3, free (05/30/2014 9:34 AM EDT) Free T3 4.3 2.0 - 4.4 pg/mL CERGIANAN LEROYENNIUM Blood specimen (specimen) 05/30/2014 9:34 AM EDT 05/30/2014 12:48 PM EDT Narrative Resulting Agency Comment Spec In Lab Lisa Seals MD CHEMISTRY ORDERABLE S Performing Organization Address [facility] Phone Number KRIS ANTONYIUM * T4, free (05/30/2014 9:34 AM EDT) Free T4 1.48 0.93 - 1.70 ng/dL CERGIANNA LEROYENNIUM Blood specimen (specimen) 05/30/2014 9:34 AM EDT 05/30/2014 12:48 PM EDT Narrative Resulting Agency Comment Spec In Lab Lisa Seals MD CHEMISTRY ORDERABLE S Performing Organization Address [facility] Phone Number KRIS GROSS * TSH (05/30/2014 9:34 AM EDT) Thyroid Stimulating Hormone 1.66 0.27 - 4.20 mcIU/mL KRIS LEROYENNIUM Blood specimen (specimen) 05/30/2014 9:34 AM EDT 05/30/2014 12:48 PM EDT Narrative Resulting Agency Comment Spec In Lab Lisa Seals MD CHEMISTRY ORDERABLE S Performing Organization Address [facility] Phone Number KRIS GROSS documented in this encounter Visit Diagnoses Diagnosis Neck pain- Primary Cervicalgia Overactive thyroid gland Thyrotoxicosis without mention of goiter or other cause, without mention of thyrotoxic crisis or storm Radiculopathy of cervical region Brachial neuritis or radiculitis nos Anxiety Anxiety state, unspecified documented in this encounter
--- OUTSIDE RECORDS SUMMARY | 2023-10-04 01:09 | XMS_ITS | Encounter Summary ---
Author Organization [facility] Address [facility] [place] [address] Care Team Providers Care Paint Supervisor Name Role Phone Dina Diaz Primary Care Provider + Reason for Visit * Reason Onset Date Comments Medication Refill 06/05/2014 Encounter Details Date Type Department Care Team (Late st Contact Info) Description 06/05/2014 [place] [address] Sunny John MD [facility] [address] ALLERGY [place] [address] Social History Tobacco Use Types Packs/Day Years [...] on filedocumented in this encounter Care Teams Paint Supervisor Relationship Specialty Start Date End Date Dina Diaz PA [address] [place] [address] [place] [address] PCP - General Internal Medicine 05/26/20 documented as of this encounter
--- OUTSIDE RECORDS SUMMARY | 2023-10-04 01:09 | XMS_ITS | Encounter Summary ---
Author Organization [facility] [place] [address] Care Team Providers Care House Visitor Name Role Phone Unavailable Primary Care Provider Unavailabl e Encounter Details Date Type Department Care Team (Late st Contact Info) Description 02/03/2014 External Results Family Medicine at [facility] [address] [place] [address] Megha Dumont MD [facility] [place] [address] Social History Tobacco Use Types Packs/Day Years [...] Priority Date/Time Associated Diagnosis Comments EXTERNAL LAB PRIMARY CARE RESULTS PANEL Routine 01/21/2011 documented in this encounter Results * (ABNORMAL) Primary Care External Results (01/21/2011) SHERIDAN <40(Externa l Lab) 01/21/2011 Historical Provider POINT OF CARE MARITZA T ORDERABLES documented in this encounter Visit Diagnoses Not on filedocumented in this encounter
--- OUTSIDE RECORDS SUMMARY | 2023-10-04 01:09 | XMS_ITS | Encounter Summary ---
Author Organization [facility] [place] [address] Care Team Providers Care Branch Rental Manager Name Role Phone Unavailable Primary Care Provider Unavailabl e Encounter Details Date Type Department Care Team (Late st Contact Info) Description 02/03/2013 External Results XRay at [address] [place] [address] Provider, Scanning Social History Tobacco Use Types Packs/Day Years [...] Procedure Name Priority Date/Time Associated Diagnosis Comments MRI/MRA SCAN Routine 12/10/2012 documented in this encounter Results * Scan Doc: MRI/MRA (12/10/2012) Anatomical Region Laterality Modality Other Scanning Provider MEDIA MGR SCAN EXT O RDR/RSLT documented in this encounter Visit Diagnoses Not on filedocumented in this encounter
--- OUTSIDE RECORDS SUMMARY | 2023-10-04 01:09 | XMS_ITS | Encounter Summary ---
Author Organization [facility] Address [facility] [place] [address] Care Team Providers Care Handling Tech Name Role Phone Unavailable Primary Care Provider Unavailabl e Reason for Visit * Reason Comments Annual Exam Encounter Details Date Type Department Care Team (Late st Contact Info) Description 07/22/2014 8:55 AM EDT Office Visit Family Medicine at [facility] [address] [place] [address] Tiff Peng PA [facility] [place] [address] Annual physical exam (Primary Dx); Vitamin D deficiency Discharge Disposition: Home Social [...] Sign Reading Time Taken Comments Blood Pressure 100/72 07/22/2014 9:24 AM EDT Pulse 100 07/22/2014 9:24 AM EDT Temperature 36.5 ??C (97.7 ??F) 07/22/2014 9:24 AM ED T Respiratory Rate 18 07/22/2014 9:24 AM EDT Oxygen Saturation 100% 07/22/2014 9:24 AM EDT Inhaled Oxygen Concentration - - Weight 79.4 kg (175 lb) 07/22/2014 9:24 AM EDT Height 165.5 cm (5' 5.16) 07/22/2014 9:24 AM ED T Body Mass Index 28.98 07/22/2014 9:24 AM EDT documented in this encounter Progress Notes * Tiff Peng PA - 07/22/2014 9:40 AM EDT Chief Complaint Patient presents with ??? Annual Exam Emilee Abebe is a 43 y.o. female Pt presents for annual physical exam. She had been admitted to [facility] 07/10/14 due to suicidal ideation, thoughts of medication overdose. Symptoms triggered by increased relationship stressors. While hospitalized, Vitamin D level was low and she started Vitamin D supplement. She notes being given Trazodone 50 mg while hospitalized instead of her usual 100 mg dose. She was given Ativan. Discharged with Wellbutrin and Lunesta. Her insurance didn't cover Lunesta; she has been using hydroxyzine for bedtime instead. She noted that she was getting angrier while on Wellbutrin; she read information about the medication that mentioned possible mood change and so she stopped the medication on 4th day of use. She has noted angry feelings have improved since stopping the medication. She has follow up with her psychiatrist in 2 days. She has been doing relaxation techniques. She finds when meditation doesn't help reduce the anxiety, she will then use Ativan. She has noted her heart racing at times, primarily when anxious. She continues to note trouble swallowing and dizziness and is wondering if it is related to her thyroid. She has an appointment with endocrinology today. She had labs checked while hospitalized, TSH 0.60. She used Methimazole in the past but didn't like how it made her feel. Maryse has been working well to reduce her chronic neck pain. She follows with [facility] in [place]; notes pap smears every 6 months due to LGSIL. Allergies Allergen Reactions ??? Abilify [Aripiprazole] Other (See Comments) hallucinations ??? Morphine Sulfate Nausea And Vomiting ??? Oxycodone-Acetaminophen Other (See Comments) rapid heart rate ??? Amitriptyline Hcl ??? Hydrocodone ??? Oxycodone Hcl ??? Soy Current Outpatient Prescriptions on File Prior to Visit Medication Sig Dispense Refill ??? meloxicam (MOBIC) 15 mg Tablet Take 1 tablet by mouth daily. 30 tablet 0 ??? fexofenadine (PAULIE) 180 mg Tablet Take 1 tablet by mouth daily. 90 tablet 3 ??? lithium (ESKALITH) 450 mg Tablet Sustained Release Take 450 mg by mouth daily. ??? lamoTRIgine (LAMICTAL) 100 mg Tablet Take 200 mg by mouth 2 times daily. ??? traZODone (DESYREL) 100 mg Tablet Take 100 mg by mouth nightly. ??? epiNEPHrine (EPIPEN) 0.3 mg/0.3 mL (1:1,000) injection Inject 0.3 mg into the muscle once as needed. ??? traMADol (ULTRAM) 50 mg tablet Take 50-100 mg by mouth as needed. Takes it with cyclobenazprine ??? diphenhydrAMINE (BENADRYL) 25 mg capsule Take 25-50 mg by mouth as needed. ??? Mometasone (NASONEX) 50 mcg/Actuation [place] 2 [place](s) each side, Nasal, Twice daily No current facility-administered medications on file prior to visit. Patient Active Problem List Diagnosis Code ??? [...] lumbar 722.52 ??? Low back pain 724.2 ??? Polyp of colon, adenomatous 211.3 ??? Thyroid nodule 241.0 ??? Neck pain, chronic 723.1, 338.29 ??? Vitamin D deficiency 268.9 Past Surgical History Procedure Laterality Date ??? Mastectomy, partial ??? Rotator cuff repair Left 2009 ??? Septoplasty tonsils and upper palate reshaping ??? Endometrial ablation ??? Cholecystectomy ??? Tubal ligation ??? Colposcopy 07/30/13 ??? Thyroidectomy, partial 02/09 No family history on file. History Social History ??? Marital Status: Spouse [...] daily Diet works on healthy choices portions myD-H Primary Care 07/22/2014 PROMIS 10-Health in general Good PROMIS 10-Quality of life Good PROMIS 10-Physical health Good PROMIS 10-Mental health Fair PROMIS 10-Satisfaction with social activities Good PROMIS 10-Ability to carry out social activities Good PROMIS 10-Ability to carry out physical activities Mostly PROMIS 10-Bothered by emotional problems Sometimes PROMIS 10-Rate of fatigue Moderate PROMIS 10-Rate of pain 5 PROMIS 10- Physical Health Score 42.3 PROMIS 10- Mental Health Score 41.1 REVIEW OF SYSTEMS 07/22/2014 Constitutional Weight loss, Hot flashes, Drowsiness, Pain Ear / nose / throat / mouth Hearing difficulty, Dry mouth, Difficulty swallowing Eyes Other eye problems Respiratory None of the above Cardiovascular Other heart symptoms Gastrointestinal Trouble swallowing, Constipation, Diarrhea Skin, hair Sweats Musculoskeletal Back pain, Joint pain Neurological Balance difficulty, dizziness, Headaches Hematologic / Lymphatic Easy bruising or bleeding, Night sweats Genitourinary Frequent urination, Dribbling Breast Cancer Risk (NATASHA) Scores 07/22/2014 Lifetime Risk of Patient 9.6 Average Lifetime Risk 12.2 5-Year Risk of Patient 0.8 Average 5-Year Risk 0.7 Recommend Genetic Risk Assessment w/B-RST 0 (If meets USPSTF BRCA testing guideline) PHQ-9 QUESTIONNAIRE (AMB) 07/22/2014 PHQ - 9 Score (Clinic) 15 (Moderately Severe Depression) PHQ - 9 Score (Patient) 16 (Moderately Severe Depression) Little interest or pleasure (Clinic) More than half the days Little interest or pleasure (Patient) More than half the days Down, depressed, hopeless (Clinic) More than half the days Down, depressed, hopeless (Patient) More than half the days Trouble sleeping (Clinic) Several days Trouble sleeping (Patient) More than half the days Tired or no energy (Clinic) More than half the days Tired or no energy (Patient) More than half the days Poor appetite or overeating (Clinic) More than half the days Poor appetite or overeating (Patient) Several days Feeling like a failure (Clinic) More than half the days Feeling like a failure (Patient) More than half the days Trouble concentrating (Clinic) Several Days Trouble concentrating (Patient) More than half the days Moving or speaking slowly (Clinic) Several Days Moving or speaking slowly (Patient) Several days Would be better off (Clinic) More than half the days Would be better off (Patient) More than half the days How difficult are the problems (Clinic) Somewhat difficult Health Maintenance Topic Date Due ??? HIV one time screen 07/23/1989 ??? Pap smear every 1 yr (high risk) 07/30/2014 ??? Influenza (Flu) vaccine (#1 of 1) 10/28/2014 ??? Breast Cancer Screen,every 2 yrs (40-74) 06/28/2015 ??? Colonoscopy every 5 yrs 09/03/2018 ??? Tetanus vaccine 05/25/2023 ??? Tdap adult Completed Last Lipid Panel Lab Results Component Value Date CHLPL 191 09/18/2012 HDL 47 09/18/2012 TRIG 177 09/18/2012 LDLCHOL 109 09/18/2012 Physical Exam: Filed Vitals: 07/22/14 0924 BP: 100/72 Pulse: 100 Temp: 36.5 ??C (97.7 ??F) TempSrc: Oral Resp: 18 Height: 165.5 cm (5' 5.16) Weight: 79.379 kg (175 lb) SpO2: 100% No LMP recorded. Patient is not currently having periods (Reason: Premenopausal). Body mass index is 28.98 kg/(m^2). GEN: NAD HEENT: Eyes: PERRL, EOMI. TMs nl,nose moist, pharynx clear NECK: supple, fullness at thyroid. HEART: RRR S1 S2 nl, no murmurs LUNGS: CTA bilat ABD: soft, nontender, no masses, organomegaly, BS nl MSK: gait normal NEURO: Alert and oriented, SKIN: warm, dry PSYCH: affect and interaction appropriate Emilee was seen today for annual exam. Diagnoses and associated orders for this visit: Annual physical exam Follow up as scheduled with [facility]. Follow up as scheduled with psychiatrist. Vitamin D deficiency Continue Vitamin D as prescribed by hospitalist. Will recheck level once prescription course is completed. - VIT D Total Evaluation; Future documented in this encounter Plan of Treatment Not on file documented as of this encounter Results * VIT D Total Evaluation (11/10/2014 10:09 AM EDT) Vitamin D Total 25 OH 63 30 - 100 ng/mL [facility] Comment: Deficient <10 ng/mL Insufficient 10 to 29 ng/mL Sufficient 30 to 100 ng/mL Potential Intoxication >100 ng/mL According to the US National Osteoporosis Foundation, Vitamin D concentrations >30 ng/mL are sufficient to protect bone health. ??The National Kidney Foundation has similarly stated that patients with Vitamin D concentrations <30ng/mL should be considered to be insufficient or deficient. http://Divided/[facility] SEMINOLEnatlkidneyfoundation http://Divided/DHMCVitD [employer] Vitamin D Immunoassay detects both 25-OH Vitamin D2 and 25-OH Vitamin D3, but only a total Vitamin D concentration is reported. Blood specimen (specimen) 11/10/2014 10:09 AM EDT 11/10/2014 10:23 AM EDT Narrative Resulting Agency Comment Spec In Lab Lisa Seals MD CHEMISTRY ORDERABLE S [facility] documented in this encounter Visit Diagnoses Diagnosis Annual physical exam- Primary Routine general medical examination at a health care facility Vitamin D deficiency Unspecified vitamin D deficiency documented in this encounter
--- OUTSIDE RECORDS SUMMARY | 2023-10-04 01:09 | XMS_ITS | Encounter Summary ---
[place] [address] Care Team Providers Care Cook Specialty Foreign Food Name Role Phone Unavailable Primary Care Provider Unavailabl e Reason for Visit * Reason Onset Date Comments Medication Refill 10/07/2014 Encounter Details Date Type Department Care Team (Late st Contact Info) Description 10/07/2014 Tele[address] Medicine at [facility] [address] [place] [phone] Suzan Redmond, distribution collection operator Refill Social History Tobacco Use Types Packs/Day [...] encounter Miscellaneous Notes * Telephone Encounter - Tiff Peng PA - 10/07/2014 4:33 PM EDT Patient has appointment in 2 days; will address this then. documented in this encounter Plan of Treatment Not on file documented as of this encounter Visit Diagnoses Diagnosis History of posttraumatic stress disorder (PTSD) Bipolar disorder, unspecified documented in this encounter
--- OUTSIDE RECORDS SUMMARY | 2023-10-04 01:09 | XMS_ITS | Encounter Summary ---
Author Organization [facility] [place] [address] Care Team Providers Care District Wildlife Manager Name Role Phone Unavailable Primary Care Provider Unavailabl e Encounter Details Date Type Department Care Team (Late st Contact Info) Description 10/09/2014 Telephone Family Medicine at [facility] [address] [place] [address] Megha Dumont MD [facility] [place] [address] Social History Tobacco Use Types Packs/Day Years [...] encounter Miscellaneous Notes * Telephone Encounter - Cyndi Booth - 10/09/2014 4:04 PM EDT No show calls made. Left message no answer. documented in this encounter Plan of Treatment Not on file documented as of this encounter Visit Diagnoses Not on filedocumented in this encounter
--- OUTSIDE RECORDS SUMMARY | 2023-10-04 01:09 | XMS_ITS | Encounter Summary ---
Author Organization [facility] [place] [address] Care Team Providers Care Electroencephalographic Technologist Name Role Phone Unavailable Primary Care Provider Unavailabl e Reason for Referral * Physical Therapy (Routine) - Declined by Patient Specialty Diagnoses / Procedures Referred By Contac t Referred To Contact Physical Therapy Diagnoses Work related injury Dayanna Garcia MD [facility] [place] [address] [facility] [place] [address] Referral ID Status Reason Start Date Expiration Date Visits Requested Visits Authorized [id number] Declined by Patient Evaluate and Treat 07/09/2014 07/09/2015 1 1 Encounter Details Date Type Department Care Team (Late st Contact Info) Description 07/09/2014 Orders Only [facility]ational [facility] at [facility] [address] [place] [address] Dayanna Garcia MD [facility] [place] [address] Work related injury Social History Tobacco Use Types Packs/Day Years [...] Referral to Physical Therapy Outpatient Referral Routine Work related injury Ordered: 07/09/2014 documented as of this encounter Visit Diagnoses Diagnosis Work related injury Injury, other and unspecified, unspecified site documented in this encounter
--- OUTSIDE RECORDS SUMMARY | 2023-10-04 01:09 | XMS_ITS | Encounter Summary ---
[place] [address] Care Team Providers Care Email Marketing Intern Name Role Phone Unavailable Primary Care Provider Unavailabl e Encounter Details Date Type Department Care Team (Late st Contact Info) Description 06/16/2014 Telephone Occupational Medicine at [facility] [address] [address] Dayanna Garcia MD [facility] [place] [address] Social History Tobacco Use Types Packs/Day Years [...] Encounter - Gary Bertrand RN - 07/08/2014 9:05 AM EDT Called back psychiatry to ask if we could do anything else to help expedite the pt being seen. Informed Tiff Peng about this pt. * Telephone Encounter - Chantel Mora PA - 07/08/2014 9:03 AM EDT Tiff actually saw this patient, so should discuss with her. A referral WAS placed on 05/30/14. Talk with secretaries about scheduling. There is a known long wait for psychiatry. She also mentioned in that note that she was established already with Dr. Cervantes. I understand this is farther away however, if she is in crisis and can't get in here, perhaps a phone call to someone she is already established with is warranted. * Telephone Encounter - Gary Bertrand RN - 07/08/2014 8:22 AM EDT Pt calling in very upset manner. She sounds tearful, and is having anxiety. She states she is upsetbecause she was told she could see psychiatry since her last OV with Chantel on 05/2014 but the referral was not ordered except list of local counselors listed in the note . Asked pt is she is willing to go to the ED, but she did not want to accept this advice. She also stated that she never tried the atarax prescribed for anxiety by Chantel in May. Pt told that the psych referral would be worked on right now and she is reachable by cell. Will go and speak to Chantel about signing this referral. Will call hotline of psychiatry as well regarding this pt. documented in this encounter Plan of Treatment Not on file documented as of this encounter Visit Diagnoses Diagnosis Bipolar disorder, currently in remission of unspecified degree, most recent episode type unspecified documented in this encounter
--- OUTSIDE RECORDS SUMMARY | 2023-10-04 01:09 | XMS_ITS | Encounter Summary ---
[place] [address] Care Team Providers Care Drafting Technician Name Role Phone Unavailable Primary Care Provider Unavailabl e Encounter Details Date Type Department Care Team (Late st Contact Info) Description 01/02/2014 Telephone [place] [phone] Jessa Oliver MSW Social History Tobacco Use Types Packs/Day Years Used Date Smoking Tobacco: Never Smokeless Tobacco: Never Sex and Gender Information Value Date Recorded Sex Assigned at Female 09/09/2020 10:10 PM EDT Gender Identity Female 09/09/2020 10:10 PM EDT Sexual Orientation Straight 09/09/2020 10 :10 PM EDT documented as of this encounter Miscellaneous Notes * Telephone Encounter - Jessa Oliver MSW - 01/02/2014 10:25 AM EST [facility] [employer]IN[employer]ING [employer]SE MANAGER CLAIM # [id number] DOI: 11/14/12 INSURANCE COMAPANY: [employer] CONTACT:Rhoda Bernal FAX:[phone] PHONE:[phone] CALL TO: [employer] Supervisor REASON FOR CALL: [facility] called account adjuster to determine status of pt's claim. Claim is open. She does notknow of any providers involved with this pt's work injury out side of . Pt is being followed by Dayana Tinajero APRN in Pain and Dr Garcia in Occ Med. [employer] Supervisor notes that she has approved pool therapy via a gym membership per referral by Ms Tinajero. CCM is available as needed. documented in this encounter Plan of Treatment Not on file documented as of this encounter Visit Diagnoses Not on filedocumented in this encounter
--- OUTSIDE RECORDS SUMMARY | 2023-10-04 01:09 | XMS_ITS | Encounter Summary ---
Author Organization [facility] [address] Care Team Providers Care Balance Sheet Analyst Name Role Phone Unavailable Primary Care Provider Unavailabl e Reason for Visit * Reason Comments Back Pain Encounter Details Date Type Department Care Team (Late st Contact Info) Description 03/28/2014 9:00 AM EST [place] [address] Maggy Medina OT [facility] [place] [address] Chronic low back pain Discharge Disposition: Home Social History Tobacco [...] Sign Reading Time Taken Comments Blood Pressure 115/71 03/28/2014 8:53 AM EST Pulse 100 03/28/2014 8:53 AM EST Temperature - - Respiratory Rate - - Oxygen Saturation - - Inhaled Oxygen Concentration - - Weight - - Height - - Body Mass Index - - documented in this encounter Progress Notes * Maggy Medina OT - 03/28/2014 8:53 AM EST GOALS AND PHYSICAL CAPACITIES EVALUATION The chief complaint requiring rehabilitation is low back and left greater than right lower extremity pain with weakness and sensory changes in both lower extremities. Anatomic diagnoses have includeddegenerative disc disease and trouble with the facet joints. Prior treatments included medications,injection, lumbar medial branch blocks, critical care cns, physical therapy, pool therapy. No specific additional procedures or surgeries have been recommended at this point. 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 Will be working Monday through Monday 8-4:30am, at least during her training the first month. 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 Feels she will be able to do the physical aspects of thejob, but wants to learn how to manage and work through pain while at work. Recreational: Go bowling. Hike a couple miles. Daily Living: None. PHYSICAL EVALUATION Gait: Slightly stiff. Mild high stepping with the left during treadmill testing but this can likelybe attributed to the fact that she has never used a treadmill before and found walking on it to be awkward AROM (degrees): Lumbar Spine Flexion (0-90) 80 Extension (0-30) 20 SLR Right (0-90) 70 SLR Left (0-90) 85 SLR-Pelvic Motion [smallest SLR - (flex + ext)] -10 Cervical Spine Flexion (0-60) 50 Extension (0-50) 35 Rot. Right (0-80) 75 Rot. Left (0-80) 75 Lat. Flex Right (0-45) 35 Lat. Flex Left (0-45) 35 Functional Strength Testing: PILE Testing lbs/HR Floor To Waist 20 lbs/126 Waist to Shoulder 15 lbs/133 Reason for Stop Point: Low back pain, hands hurting from gripping the crate Endurance Testing: Modified Ramp Treadmill Test Minutes Completed 4 % Grade 10% Speed (mph) 2.1 MET/HR Reason for Stop Point: Legs aching During physical testing, participation level was high. Demand Levels of Functional Recovery Goals Current Capacity Limit / Physical Demand Level (PDL)* Vocational: light Recreational: light Daily Living: n/a light *The PDL listed above is based on today's physical performance screening tests. More comprehensive physical testing integrated with clinical findings would be required to derive an accurate work capacity. ASSESSMENT OF FUNCTIONAL TESTING: Demand levels of functional goals do not appear significantly higher than current physical capacities as tested today. However, another consult is warranted to further clarify sustainable functional status and rehabilitation needs, and she would benefit from learning self-management strategies she can use at work given her goal of learning pain management strategies she can use to get through thework day. She should start with a consult with a [place] certified physical therapist to instruct her in a self-care routine and home conditioning program. She has not had mechanical diagnosis and treatment to date per her description. If two to three 1:1 visits are insufficient, reconsider multidisciplinary intensive rehabilitation in time for the [facility] program. PLAN: Medical consult in the Sp[facility] Center to discuss treatment options. Consider a referral to [facility] physical therapy staff for 1:1 mechanical self care instruction and home exercise advice. Authorize a prescription for a gym membership as needed. If 2-3 individual visits are insufficient, reconsider participation in the [facility] multidisciplinary rehabilitation program. Total time for testin minutes documented in this encounter Plan of Treatment Not on file documented as of this encounter Visit Diagnoses Diagnosis Chronic low back pain Lumbago documented in this encounter
--- OUTSIDE RECORDS SUMMARY | 2023-10-04 01:09 | XMS_ITS | Encounter Summary ---
Author [facility] [place] [address] Care Team Providers Care Wall Taper Helper Name Role Phone Unavailable Primary Care Provider Unavailabl e Encounter Details Date Type Department Care Team (Late st Contact Info) Description 06/10/2014 Telephone Family Medicine at [facility] [address] [place] [address] Megha Dumont MD [facility] [place] [address] Social History Tobacco Use Types Packs/Day Years [...] Miscellaneous Notes * Telephone Encounter - Jessa Byrne RN - 06/10/2014 4:08 PM EDT Spoke with Tomas Armendariz in [place]. They have not questions about meds. Atarax was filled and picked up on 05/30. Flexeril script received today (new script) and they do not have any questions. * Telephone Encounter - Melody Chang RN - 06/10/2014 12:06 PM EDT Call to patient to clarify which medication she requested to be refilled. The RX line message was not clear. Asked her to call back with the correct medication. documented in this encounter Plan of Treatment Not on file documented as of this encounter Visit Diagnoses Not on filedocumented in this encounter
--- OUTSIDE RECORDS SUMMARY | 2023-10-04 01:09 | XMS_ITS | Encounter Summary ---
Author Organization [facility] Address [facility] [place] [address] Care Team Providers Care Reservoir Caretaker Name Role Phone Unavailable Primary Care Provider Unavailabl e Reason for Visit * Reason Comments Foot Pain left foot and heel x 2week started in arch then heel Encounter Details Date Type Department Care Team (Late st Contact Info) Description 10/17/2014 10:45 AM EDT Office Visit Family Medicine at [address] [phone] Martha Santos, SHAKE TABLE OPERATOR [facility] [place] [address] Plantar fasciitis, left Discharge Disposition: Home Social History Tobacco Use [...] Sign Reading Time Taken Comments Blood Pressure 104/64 10/17/2014 10:58 AM EDT Pulse 90 10/17/2014 10:58 AM EDT Temperature 36.7 ??C (98 ??F) 10/17/2014 10:58 AM EDT Respiratory Rate 13 10/17/2014 10:58 AM EDT Oxygen Saturation 99% 10/17/2014 10:58 AM EDT Inhaled Oxygen Concentration - - Weight 79.2 kg (174 lb 9.6 oz) 10/17/2014 10:58 AM EDT Height 165.1 cm (5' 5) 10/17/2014 10:58 AM EDT Body Mass Index 29.05 10/17/2014 10:58 AM EDT documented in this encounter Patient Instructions * Patient Instructions* Martha Santos, KARTHIKEYAN - 10/17/2014 11:18 AM EDT Images from the original note were not included. [facility] Plantar Fasciitis: After Your Visit Your Care Instructions Plantar fasciitis is pain and inflammation of the plantar fascia, the tissue at the bottom of your foot that connects the heel bone to the toes. The plantar fascia also supports the arch. If you strain the plantar fascia, it can develop small tears and cause heel pain when you stand or walk. Plantar fasciitis can be caused by running or other sports. It also may occur in people who are overweight or who have high arches or flat feet. You may get plantar fasciitis if you walk or stand forlong periods, or have a tight Achilles tendon or calf muscles. You can improve your foot pain with rest and other care at home. It might take a few weeks to a fewmonths for your foot to heal completely. Follow-up care is a renner part of your treatment and safety. Be sure to make and go to all appointments, and call your doctor if you are having problems. It's also a good idea to know your test resultsand keep a list of the medicines you take. How can you care for yourself at home? 1. Rest your feet often. Reduce your activity to a level that lets you avoid pain. If possible, do not run or walk on hard surfaces. 2. Take pain medicines exactly as directed. 1. If the doctor gave you a prescription medicine for pain, take it as prescribed. 2. If you are not taking a prescription pain medicine, take an cnxo-uvo-tiypshg anti-inflammatory medicine for pain and swelling, such as ibuprofen (Advil, Motrin) or naproxen (Aleve). Read and follow all instructions on the label. 3. Use ice massage to help with pain and swelling. You can use an ice cube or an ice cup several times a day. To make an ice cup, fill a paper cup with water and freeze it. Cut off the top of the cupuntil a half-inch of ice shows. Hold onto the remaining paper to use the cup. Rub the ice in small circles over the area for 5 to 7 minutes. 4. Contrast baths, which alternate hot and cold water, can also help reduce swelling. But because heat alone may make pain and swelling worse, end a contrast bath with a soak in cold water. 5. Wear a night splint if your doctor suggests it. A night splint holds your foot with the toes pointed up and the foot and ankle at a 90-degree angle. This position gives the bottom of your foot a constant, gentle stretch. 6. Do simple exercises such as calf stretches and towel stretches 2 to 3 times each day, especiallywhen you first get up in the morning. These can help the plantar fascia become more flexible. They also make the muscles that support your arch stronger. Hold these stretches for 15 to 30 seconds perstretch. Repeat 2 to 4 times. 1. Stand about 1 foot from [address] the palms of both hands against the wall at chest level. Lean forward against the wall, keeping one leg with the knee straight and heel on the ground while bending the knee of the other leg. 2. Sit down on the floor or a mat with your feet stretched in front of you. Roll up a towel lengthwise, and loop it over the ball of your foot. Holding the towel at both ends, gently pull the towel toward you to stretch your foot. 7. Wear shoes with good arch support. Athletic shoes or shoes with a well- cushioned sole are good choices. 8. Try heel cups or shoe inserts (orthotics) to help cushion your heel. You can buy these at many shoe stores. 9. Put on your shoes as soon as you get out of bed. Going barefoot or wearing slippers may make your pain worse. 10. Reach and stay at a good weight for your height. This puts less strain on your feet. When should you call for help? Call your doctor now or seek immediate medical care if: 1. You have heel pain with fever, redness, or warmth in your heel. 2. You cannot put weight on the sore foot. Watch closely for changes in your health, and be sure to contact your doctor if: 1. You have numbness or tingling in your heel. 2. Your heel pain lasts more than 2 weeks. Where can you learn more? Visit our health information library at [email or web address] You can also view health information on [employer], your personal patient account. Log in or sign up today. Enter X351 in the search box to learn more about Plantar Fasciitis: After Your Visit. ?? [id number] [employer]. Care instructions adapted under license by [facility]. This care instruction is for use with your licensed healthcare professional. If you have questions about a medical condition or this instruction, always ask your healthcare professional. [employer] disclaims any warranty or liability for your use of this information. Content Version: 10.4.392436; Current as of: January 10, 2014 [facility] Plantar Fasciitis: Exercises Your Care Instructions Here are some examples of typical rehabilitation exercises for your condition. Start each exercise slowly. Ease off the exercise if you start to have pain. Your doctor or physical therapist will tell you when you can start these exercises and which ones will work best for you. How to do the exercises Note: Each exercise should create a pulling feeling but should not cause pain. Towel stretch 11. Sit with your legs extended and knees straight. 12. Place a towel around your foot just under the toes. A towel will give you a more effective stretch. 13. Hold each end of the towel in each hand, with your hands above your knees. 14. Pull back with the towel so that your foot stretches toward you. 15. Hold the position for at least 15 to 30 seconds. 16. Repeat 2 to 4 times a session, up to 5 sessions a day. Calf stretch Note: This exercise stretches the muscles at the back of the lower leg (the calf) and the Achilles tendon. Do this exercise 3 or 4 times a day, 5 days a week. 3. Stand facing a wall with your hands on the wall at about eye level. Put the leg you want to stretch about a step behind your other leg. 4. Keeping your back heel on the floor, bend your front knee until you feel a stretch in the back leg. 5. Hold the stretch for 15 to 30 seconds. Repeat 2 to 4 times. Plantar fascia and calf stretch Note: Stretching the plantar fascia and calf muscles can increase flexibility and decrease heel pain. You can do this exercise several times each day and before and after activity. 3. Stand on a step as shown above. Be sure to hold on to the banister. 4. Slowly let your heels down over the edge of the step as you relax your calf muscles. You should feel a gentle stretch across the bottom of your foot and up the back of your leg to your knee. 5. Hold the stretch about 15 to 30 seconds, and then tighten your calf muscle a little to bring your heel back up to the level of the step. Repeat 2 to 4 times. Towel curls 1. While sitting, place your foot on a towel on the floor and scrunch the towel toward you with your toes. 2. Then, also using your toes, push the towel away from you. Note: Make this exercise more challenging by placing a weighted object, such as a soup can, on the other end of the towel. [place] pickups 1. Put marbles on the floor next to a cup. 2. Using your toes, try to lift the marbles up from the floor and put them in the cup. Follow-up care is a renner part of your treatment and safety. Be sure to make and go to all appointments, and call your doctor if you are having problems. It's also a good idea to know your test resultsand keep a list of the medicines you take. Where can you learn more? Visit our health information library at [email or web address] You can also view health information on [employer], your personal patient account. Log in or sign up today. Enter X377 in the search box to learn more about Plantar Fasciitis: Exercises. ?? [phone] [employer]. Care instructions adapted under license by [facility]. This care instruction is for use with your licensed healthcare professional. If you have questions about a medical condition or this instruction, always ask your healthcare professional. [employer] disclaims any warranty or liability for your use of this information. Content Version: 10.4.846086; Current as of: January 10, 2014 documented in this encounter Progress Notes * Martha Santos APRN - 10/17/2014 11:08 AM EDT Chief Complaint Patient presents with ??? Foot Pain left foot and heel x 2week started in arch then heel HPI: 44 y.o. female presents with above, left foot only, no s/s right foot. No injuries falls. Notes pain on standing after waking in am. No edema. ROS: see HPI above Patient Active Problem List Diagnosis Code ??? [...] 723.1, 338.29 ??? Vitamin D deficiency 268.9 Current Outpatient Prescriptions Medication Sig Dispense Refill ??? sertraline (ZOLOFT) 100 mg Tablet Take 100 mg by mouth daily. ??? meloxicam (MOBIC) 15 mg Tablet Take 1 tablet by mouth daily. 30 tablet 0 ??? hydrOXYzine (VISTARIL) 25 mg Capsule Take 25 mg by mouth nightly. ??? VITAMIN D 50,000 unit Capsule 0 ??? fexofenadine (PAULIE) 180 mg Tablet Take 1 tablet by mouth daily. 90 tablet 3 ??? lamoTRIgine (LAMICTAL) 100 mg Tablet Take 200 mg by mouth 2 times daily. ??? traZODone (DESYREL) 100 mg Tablet Take 100 mg by mouth nightly. ??? diphenhydrAMINE (BENADRYL) 25 mg capsule Take 25-50 mg by mouth as needed. ??? Mometasone (NASONEX) 50 mcg/Actuation [place] [address] [place](s) each side, Nasal, Twice daily ??? LORazepam (ATIVAN) 0.5 mg Tablet 0 ??? lithium (ESKALITH) 450 mg Tablet Sustained Release Take 450 mg by mouth daily. ??? epiNEPHrine (EPIPEN) 0.3 mg/0.3 mL (1:1,000) injection Inject 0.3 mg into the muscle once as needed. ??? traMADol (ULTRAM) 50 mg tablet Take 50-100 mg by mouth as needed. Takes it with cyclobenazprine No current facility-administered medications for this visit. Physical Exam: Filed Vitals: 10/17/14 1058 BP: 104/64 Pulse: 90 Temp: 36.7 ??C (98 ??F) TempSrc: Oral Resp: 13 Height: 165.1 cm (5' 5) Weight: 79.198 kg (174 lb 9.6 oz) SpO2: 99% MSK: ttp proximal plantar fascia insertion across left foot extending distally 1-2 cm. Less ttp Achilles and throughout insertion lower aspect, less in distal calf. Foot flex extend rotation intact. No edema ecchymosis deformity. Sensation intact. Assessment/Plan: Plantar fascitis, left: reviewed exam findings, dx, specifics of plan. Provided handouts dx and exercises. If not improving with HEP, consider PT; prefers near [place], if needed. documented in this encounter Plan of Treatment Not on file documented as of this encounter Visit Diagnoses Diagnosis Plantar fasciitis, left Plantar fascial fibromatosis documented in this encounter
--- OUTSIDE RECORDS SUMMARY | 2023-10-04 01:09 | XMS_ITS | Encounter Summary ---
Author Organization [facility] [place] [address] Care Team Providers Care Welding Machine Operator Gas Metal Arc Name Role Phone Unavailable Primary Care Provider Unavailabl e Reason for Referral * Physical Therapy (Routine) - Closed Specialty Diagnoses / Procedures Referred By Contac t Referred To Contact Physical Therapy Diagnoses DDD (degenerative disc disease), lumbar Belinda Ch APRN [facility] [place] [address] [facility] [place] [address] Referral ID Status Reason Start Date Expiration Date V isits Requested Visits Authorized [id number] Closed Evaluate and Treat 03/28/2014 03/28/2015 12 12 Reason for Visit * Reason Comments Medical Clearance Encounter Details Date Type Department Care Team (Late st Contact Info) Description 03/28/2014 10:40 AM EST [place] [address] Belinda Ch HOSE TUBING BACKER [facility] [place] [address] DDD (degenerative disc disease), lumbar (Primary Dx); Left-sided low back pain without sciatica Social History Tobacco Use Types Packs/Day Years Used Date Smoking Tobacco: Never Smokeless Tobacco: Never Sex and Gender Information Value Date Recorded Sex Assigned at Female 09/09/2020 10:10 PM EDT Gender Identity Female 09/09/2020 10:10 PM EDT Sexual Orientation Straight 09/09/2020 10 :10 PM EDT documented as of this encounter Progress Notes * Belinda Ch Yuriy, HOSE TUBING BACKER - 03/28/2014 10:59 AM EST Chief complaint requiring rehabilitation: low back and left greater than right lower extremity painwith weakness and sensory changes in both lower extremities S: Emilee is being seen today for medical clearance for the Functional Worship program, a graduated exercise program aimed at The patient achieving herfunctional goals, despite having chronic pain. Her pain pattern is described as medications, injection, lumbar medial branch blocks, animal care assistant, physical therapy, pool therapy , He has had treatments includingmedications, injection, lumbar medial branch blocks, animal care assistant, physical therapy, pool therapy . 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 Will be working Monday through Monday 8-4:30am, at least during her training the first month. 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 Feels she will be able to do the physical aspects of thejob, but wants to learn how to manage and work through pain while at work. Recreational: Go bowling. Hike a couple miles. Daily Living: None. O: Resting BP 115/71 Please see Ms Medina's note of today for details of the physical testing and current functional Level. In general the patients current level of functioning is in the Light demand level and goals are in the light demand level. Her neurological exam was normal. A: There is not a gap between Her goals and abilities.This was a counseling visit for 25 minutes out of 45 talking about symptom and functional recovery, reviewing the content of FRP, and logistics specific to participation including, travel, lodging and exercise and activity planning . We have mutually decided to proceed withthe following plan. P: Emilee may be a candidate for functional jewish. 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 She will visit with PT today for mechanical studies and will be in contact in the furure if unable to complete job capacities. . documented in this encounter Plan of Treatment Scheduled Referrals Name Type Priority Associated Diagnoses Orde r Schedule Referral to Physical Therapy Outpatient Referral Routine DDD (degenerative disc disease), lumbar Ordered: 03/28/2014 documented as of this encounter Visit Diagnoses Diagnosis DDD (degenerative disc disease), lumbar- Primary Degeneration of lumbar or lumbosacral intervertebral disc Left-sided low back pain without sciatica documented in this encounter
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
--- OUTSIDE RECORDS SUMMARY | 2023-10-04 01:09 | XMS_ITS | Encounter Summary ---
Author Organization [facility] [place] [address] Care Team Providers Care Patcher Wood Welder Name Role Phone Unavailable Primary Care Provider Unavailabl e Reason for Referral * Consultation (Routine) - Closed Specialty Diagnoses / Procedures Referred By Contac t Referred To Contact Pain Management Diagnoses Injury of low back, initial encounter Dayanna Garcia MD [facility] [place] [address] Sunny Quinn V [facility] [place] [address] Referral ID Status Reason Start Date Expiration Date V isits Requested Visits Authorized [id number] Closed Consult, Test & Treat 12/05/2013 06/03/2014 1 1 * Occupational Therapy (Routine) - Complete - Unable to Contact Patient Specialty Diagnoses / Procedures Referred By Contac t Referred To Contact Occupational Therapy Diagnoses Injury of low back, initial encounter Dayanna Garcia MD [facility] [place] [address] [facility] [place] [address] Referral ID Status Reason Start Date Expiration Date Visits Requested Visits Authorized [id number] Complete - Unable to Contact Patient Evaluate and Treat 12/05/2013 06/03/2014 1 1 Reason for Visit * Reason Comments Advice Only Encounter Details Date Type Department Care Team (Latest Contact Info) Description 12/05/2013 11:30 AM EDT Initial consult [place] [address] Dayanna Garcia MD [facility] [place] [address] Injury of low back, initial encounter (Primary Dx); Work related injury; Back pain Discharge Disposition: Home Social History [...] Sign Reading Time Taken Comments Blood Pressure 124/73 12/05/2013 11:40 AM EDT Pulse 113 12/05/2013 11:40 AM EDT Temperature - - Respiratory Rate 18 12/05/2013 11:40 AM EDT Oxygen Saturation - - Inhaled Oxygen Concentration - - Weight - - Height - - Body Mass Index - - documented in this encounter Progress Notes * Dayanna Garcia MD - 12/06/2013 4:36 PM EDT OCCUPATIONAL AND ENVIRONMENTAL MEDICINE INITIAL VISIT Date of injury: 11/15/2012 Date of intake: 12/05/2013 PCP: Margie Peña Reason for visit: Ms. Abebe is a 43 y.o. year old female whom I am seeing in consultation for Dr. Peña regarding low back injury and return to work. History of present illness: Ms. Abebe gives the following history. 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 Since that time, she has done physical therapy, aquatherapy, chiropractic treatment, and one injection. This has all been done through [facility] and [facility] except for the chiropractor who is in private practice. She believes the injection was a facet injection. She had a spine consultation with Dr. Thaddeus Conway on 02/05/2013 who assessed disk dehydration at L4-5 and L5-S1 and no surgical indication. She has constant low back pain that ranges from 2 to 10 out of 10 in intensity, but usually the higher end of her pain is 7 to 8. It is better with medications, rest, and walking. It feels like a sharp ache and tingly like it is on fire. It occasionally radiates to the grof-murqajz-nzxu-right buttock and down the posterior and sometimes the side of the leg. The leg pain feels burning, shooting, and tingling. She does not have any leg numbness. The leg pain occurs a few times a week and can last from 15 minutes to hours. She has been out of work since the injury. 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 She states this is going well. Past Medical History Diagnosis Date ??? Lower back injury 02/05/2013 ??? Bipolar disorder ??? PTSD (post-traumatic stress disorder) ??? Fibromyalgia ??? Environmental allergies with anaphylaxis ??? Degenerative disc disease Past Surgical History Procedure Date ??? Mastectomy, partial ??? Rotator cuff repair ??? Septoplasty ??? Endometrial ablation ??? Cholecystectomy ??? Tubal ligation Current Outpatient Prescriptions Medication Sig Dispense Refill ??? traZODone (DESYREL) 100 mg Tablet Take 100 mg by mouth nightly. ??? DULoxetine (CYMBALTA) 60 mg capsule Take 60 mg by mouth daily. ??? lamoTRIgine (LAMICTAL) 100 mg tablet Take 100 mg by mouth 2 times daily. ??? epiNEPHrine (EPIPEN) 0.3 mg/0.3 mL [...] as needed. ??? Mometasone (NASONEX) 50 mcg/Actuation [place] 2 [place](s) each side, Nasal, Twice daily Allergies Allergen Reactions ??? Morphine Sulfate Nausea And Vomiting ??? Oxycodone-Acetaminophen Other (See Comments) rapid heart rate ??? Amitriptyline Hcl ??? Hydrocodone ??? Oxycodone Hcl Social history: She does not smoke. Family History: Heart disease, diabetes, arthritis, and degenerative disk disease. Review of Systems: As above and also general achiness from her fibromyalgia. She also states that she has neck pain, pain in her upper extremities intermittently, and intermittent hand numbness. She does note some issues with balance. She states that she has not had imaging of her neck. She reports no constitutional symptoms, bowel or bowel changes or dysfunction, or other red flags. Physical exam: Filed Vitals: 12/05/13 1140 BP: 124/73 Pulse: 113 Resp: 18 She is alert and pleasant in no acute distress. She has no exaggerated pain behaviors. She does have tender trigger points consistent with her diagnosis of fibromyalgia. She has tenderness to palpation of the neck, particularly the lower cervical vertebrae and into the bilateral posterior musculature. Spurling is positive bilaterally with more symptoms into the right arm. She has good upper extremity strength. Upper extremity reflexes are 3+ and symmetric. Upper extremity sensation is intact to light touch. Shruti is positive bilaterally, right greater than left. Lhermitte is equivocal for shooting electrical pain. Gait is not antalgic. It is unstable with rbo-wwf-kurs walk but no specific ankle weakness. She is tender to palpation over the lower lumbar vertebrae and into the bilateral facet and lateral musculature. She has decreased lumbar range of motion with pain worse with flexion than extension. Lower extremity strength is normal, although this does cause back pain with resisted testing. Lower extremity reflexes are 2+ and symmetric. Lower extremity sensation is intact to light touch. She has no clonus, and Babinski is downgoing. She is vascularly intact. Diagnostic Studies: Lumbar MRI dated 12/10/2012 shows minimal bilateral facet fluid at L2-3, loss of disk height at L3-4 with mild neuroforaminal narrowing similar to the prior study. At L4-5, there is a central disk protrusion with right-sided annular fissure that appears larger than seen on prior MRI and results in narrowing of the ventral spinal canal as well as the lateral recess with facet ligamentous hypertrophic changes, right greater than left resulting in mild xidus-gmek-omer-left neuroforaminal narrowing. At L5-S1, there is a left central and paracentral disk protrusion with a small annular fissure that minimally narrows the ventral spinal canal but does significantly affect the lateral recess with mild facet hypertrophic changes and mild bilateral neuroforaminal narrowing similar to the prior examination. Overall assessment was minimally progressed degenerative disk changes at L4-5 and L5-S1 with no significant central canal stenosis or neuroforaminal narrowing seen and some incidental probable bilateral renal cysts with recommendation for ultrasound or contrast-enhanced CT or MRI evaluation of clinical concern. 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 She has been out of work since the injury and has had appropriate nonoperative care. In addition, she does have neck pain, arm pain, and hand numbness with signs and symptoms of radiculopathy and/or some central stenosis on exam. Of note, a percentage of people with a diagnosis of fibromyalgia, symptoms can be explained by early cervical stenosis. Recommendations: 1. In terms of the work injury, which is the low back, we discussed various next steps. First and foremost, she would like an objective assessment of her functional capacity to help inform her vocational training. I am ordering an FCE. In addition, I am requesting her records from [facility] so we can review her treatment. We discussed a referral to our Pain Medicine Clinic here, as it sounds like her one injection was done in the Orthopaedic Clinic and there may be other pain-medicine options that may help with pain management. Her medication regimen appears very appropriate. In addition, the status of her Workers' Compensation claim is unclear to me. She does not have an assistant city attorney and states that no one is coordinating the care of this injury, although it does appear that her primary care has done an excellent job with the injury to date. She does express an interest in having some Occupational Medicine input on the Workers' Compensation side of things. To that end, I have given her the contact information for Jessa Oliver, our [facility] CCM, to help with her Workers' Compensation questions and issues. 2. In terms of the neck, I suspect that she has some degenerative disk disease in the neck that may be contributing to some of her neck pain, arm pain, hand numbness, and fibromyalgia symptoms. A reasonable place to start would be a cervical x-ray with flexion and extension views and a cervical MRI given positive Spurling and Shruti sign, although the Shruti sign may be related to her centrally acting medications. 3. Once these steps have been completed, it may be reasonable for her to be reevaluated by a drug abuse treatment specialist. We will reassess once the neck imaging and Pain Medicine evaluation have been completed. Typically, I would suggest postponing the FCE until treatment is complete. However, given that she is a year out and is eager to return to work and has connected with Vocational Rehab, I think an FCE is reasonable, especially given that most of her care is likely pain management and probably at this point in terms of the low back would not have a significant impact on her physical-demand level especially given her report that she is pushing herself despite her pain. To reiterate, the low back injury appears to be the work injury. The neck injury would be a personal medical evaluation. She will follow up with me after these visits. I am holding her Work Comp form until we have clarification about the status of her claim. ??? She does not appear to be at [facility]. ??? We discussed that she can contact our [facility] continuing care managers in the [facility] Center for assistance with issues or questions at [phone]. Thank you for this interesting consult. Please do not hesitate to contact me at [phone] if youhave any questions or need further information. 45 minutes of this 60 minute visit were spent discussing diagnoses, treatment options, treatment plan, medication instructions and precautions, patient goals, work capacity, and return to work plan using a shared decision making approach. This note was written with voice recognition software and manual typing. Please contact my office at [phone] for any questions related to the text of this medical record. documented in this encounter Plan of Treatment Scheduled Referrals Name Type Priority Associated Diagnoses Order Schedule Referral to Occupational Therapy Outpatient Referral Routine Injury of low back, initial encounter Ordered: 12/05/2013 Referral to Pain Clinic Outpatient Referral Routine Injury of low back, initial encounter Ordered: 12/05/2013 documented as of this encounter Visit Diagnoses Diagnosis Injury of low back, initial encounter- Primary Work related injury Injury, other and unspecified, unspecified site Back pain Backache, unspecified documented in this encounter
--- OUTSIDE RECORDS SUMMARY | 2023-10-04 01:09 | XMS_ITS | Encounter Summary ---
Author Organization [facility] [place] [address] Care Team Providers Care Department Sales Manager Name Role Phone Unavailable Primary Care Provider Unavailabl e Reason for Visit * Reason Onset Date Comments Medication Refill 09/30/2014 Encounter Details Date Type Department Care Team (Late st Contact Info) Description 09/30/2014 Refill Family Medicine at [facility] [address] [place] [address] Rianna Seals MD [facility] [place] [address] Neck pain Social History Tobacco Use Types [...] encounter Miscellaneous Notes * Telephone Encounter - Marysol Lin MA - 10/02/2014 10:10 AM EDTFrom: Emilee Abebe To: Rianna Seals MD Sent: 09/30/2014 10:59 AM EDT Subject: Medication Renewal Request Original authorizing provider: MD Emilee CAMPBELL would like a refill of the following medications: meloxicam (MOBIC) 15 mg Tablet [RIANNA SEALS MD] Preferred pharmacy: Other - [place], [place] Comment: This prescription needs to be filled at [facility] in [place], [place]. Please let me know if you need anyinformation for the pharmacy. Thank you. Emilee Abebe documented in this encounter Plan of Treatment Not on file documented as of this encounter Visit Diagnoses Diagnosis Neck pain Cervicalgia documented in this encounter
--- OUTSIDE RECORDS SUMMARY | 2023-10-04 01:09 | XMS_ITS | Encounter Summary ---
Author Organization [facility] Address [facility] [place] [address] Care Team Providers Care Ground Crewman Name Role Phone Unavailable Primary Care Provider Unavailabl e Encounter Details Date Type Department Care Team (Latest Contact Info) Description 05/30/2014 9:56 AM EDT - 05/30/2014 11:59 PM EDT Hospital Encounter XRay at [address] [place] [address] Neck pain; Radiculopathy of cervical region Social History Tobacco Use Types Packs/Day Years [...] needed. 08/02/2010 07/14/2020 Mometasone (NASONEX) 50 mcg/Actuation [place](s) each side, Nasal, Twice daily 02/12/2010 01/08/2015 documented as of this encounter Plan of Treatment Not on file documented as of this encounter Procedures Procedure Name Priority Date/Time Associated Diagnosis Comments XR CERVICAL SPINE ROUTINE AND OBLIQUE (4 OR 5 VIEWS) Routine 05/30/2014 10:16 AM EDT documented in this encounter Results * XR Cervical Spine Routine & Oblique (4 or 5 views) (05/30/2014 10:16 AM EDT) Anatomical Region Laterality Modality T-spine N/A Radiographic Kiera ging 05/30/2014 10:1 6 AM EDT Impressions 05/30/2014 1:00 PM EDT IMPRESSION: 1. No subluxation or fracture. 2. Preservation of disc space heights. 3. No appreciable osseous neural foraminal stenosis identified. Consider MRI of the cervical spine for further assessment given the reported radicular symptoms. Narrative 05/30/2014 1:00 PM EDT EXAMINATION: SPINE CERV ROUT CLINICAL HISTORY: neck pain with radiculopathy TECHNIQUE: AP, lateral, and bilateral oblique views of the cervical spine COMPARISON: None FINDINGS: No subluxation, fracture, or prevertebral soft tissue swelling is seen. The intervertebral disc space heights are maintained. There is perhaps minimal developing anterior endplate osteophyte formation at C5-6. A small probable disc calcification or calcification along the anterior longitudinal ligament at C4-5 is noted. No appreciable osseous neural foraminal stenosis identified on the bilateral oblique views of the cervical spine. There are numerous surgical clips in the soft tissues of left neck compatible with prior surgery. Procedure Note Juan Leary MD - 05/30/2014 EXAMINATION: SPINE CERV ROUT CLINICAL HISTORY: neck pain with radiculopathy TECHNIQUE: AP, lateral, and bilateral oblique views of the cervicalspine COMPARISON: None FINDINGS: No subluxation, fracture, or prevertebral soft tissue swelling is seen.The intervertebral disc space heights are maintained. There is perhapsminimal developing anterior endplate osteophyte formation at C5-6. A smallprobable disc calcification or calcification along the anterior longitudinal ligament atC4-5 is noted. No appreciable osseous neural foraminal stenosis identified onthe bilateral oblique views of the cervical spine. There are numerous surgicalclips in the soft tissues of left neck compatible with prior surgery. IMPRESSION IMPRESSION: 1. No subluxation or fracture. 2. Preservation of disc space heights. 3. No appreciable osseous neural foraminal stenosis identified. ConsiderMRI of the cervical spine for further assessment given the reported radicularsymptoms. Lisa Seals MD IMG DX ORDERABLES documented in this encounter Visit Diagnoses Diagnosis Neck pain Cervicalgia Radiculopathy of cervical region Brachial neuritis or radiculitis nos documented in this encounter
--- OUTSIDE RECORDS SUMMARY | 2023-10-04 01:09 | XMS_ITS | Encounter Summary ---
Author Organization [facility] [place] [address] Care Team Providers Care Cutting And Printing Machine Operator Name Role Phone Unavailable Primary Care Provider Unavailabl e Reason for Visit * Reason Comments Work Related Injury lumber back injury D OI 2012,no improvement Encounter Details Date Type Department Care Team (Late st Contact Info) Description 03/13/2014 10:00 AM EST Office Visit Occupational Medicine at [address] [address] Dayanna Garcia MD [facility] [place] [address] Work related injury; Left-sided low back pain without sciatica Discharge [...] Sign Reading Time Taken Comments Blood Pressure 104/57 03/13/2014 10:16 AM EST Pulse 98 03/13/2014 10:16 AM EST Temperature - - Respiratory Rate - - Oxygen Saturation - - Inhaled Oxygen Concentration - - Weight 81.6 kg (180 lb) 03/13/2014 10:16 AM EST Height 167.6 cm (5' 6) 03/13/2014 10:16 AM EST Body Mass Index 29.05 03/13/2014 10:16 AM EST documented in this encounter Patient Instructions * Patient Instructions* Dayanna Garcia MD - 03/13/2014 11:19 AM EST Instead of tramadol, try Advil 400 to 600 mg up to 3 times per day WITH FOOD AT THE SAME TIME Tylenol 500 to 1000 mg up to 3 times per day (no more than 3000 mg per day total of Tylenol) Try 1/2 tablet of Flexeril instead of the full tablet. documented in this encounter Progress Notes * Dayanna Garcia MD - 03/20/2014 11:03 AM EST I agree with excellent resident note. The case was discussed at the time of the visit and immediately after the visit. The assessment and plan were formulated in discussion with me and the patient, and I agree with them as documented. I have reviewed the history, physical exam, assessment and plan with the patient and the resident. Major issues discussed and plan today as below. - Dayanna Garcia MD Ms. Abebe has seen Dr. Quinn in Pain Medicine who recommends no further injections. She would like to start the Functional Adventism Program. No new symptoms. 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 She feels this is accurate. She feels the missing pieces for her are reconditioning totolerate full work days every day and also how to successfully manage her pain at work, which increases throughout the day and week. Plan: 1. GAP assessment for FRP as scheduled. Her PCP visit is upcoming so has not had a cervical evaluation (not work related). I will check with the FRP group if she needs cervical imaging prior to beingcleared for FRP. 2. Continue vocational counseling. 3. Medications reviewed. She will discontinue tramadol and try cutting Flexeril in half. She will add ibuprofen with food along with Tylenol up to three times per day. Written documentation provided in patient instructions. Precautions reviewed. 4. We reviewed the purpose of the FRP GAP assessment, the FRP program, and her goals. Her stated goals are to recondition and to learn to better manage her pain at work to optimize chance of successful return to work. I explained that the P staff will be following her return to work planning and MMI status. She knows how to contact me if needed. 5. Additional medical records received, reviewed, and scanned to the chart. Dayanna Garcia MD, PhD, MPH, FACOEM Knitting Inspector Section of Occupational and Environmental Medicine Department of Medicine [facility] at [facility] * Bela Wallis I - 03/13/2014 10:33 AM EST OCCUPATIONAL AND ENVIRONMENTAL MEDICINE FOLLOW UP VISIT Date of injury: 11/15/2012 Date of intake: 12/05/2013 PCP: Margie Peña S: Ms. Abebe is a 43 y.o. year old female coming in for f/u regarding low back injury and return to work. 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 Since that time, she has done physical therapy, aquatherapy, chiropractic treatment, and one facet injection. 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 She is eager to get back to work. Since her last visit she was evaluated in Pain Clinic by Dr. Sunny Quinn. He has recommended functional alevism program so that she could return to a higher level of physical functioning. Lately, the pain is always there; lower back where injury happened, mostly on the L side. It is constant, worst up to 10, usually 7-8, at best no pain -1/2. Movement and over doing it throughout the day makesit worse. Constantly needing to readjust herself. Walking and rest helps. At times radiates from back down butt and legs, mostly on the L side but both sides. No weakness, sensory changes, every few months numbness or tingling in feet. Had PT in the past that did seem to help. She currently is taking tramadol and flexeril, both of which help her pain but make her very tired (doesnt want to be on those; any other pain relievers she can take?). Ibuprofen also helps but she often forgets to take it scheduled. She reports no constitutional symptoms, bowel or bowel changes or dysfunction, or otherred flags. Blood pressure 104/57, pulse 98, height 167.6 cm (5' 6), weight 81.647 kg (180 lb). She is alert and pleasant in no acute distress. She has tenderness to touch over L4-L5 spinous process, as well as over L SIQ and L facets, she also pain pain elicited by extension of her back No sensory deficits b/l LE Strength 5/5 b/l of LE DTR 2+ both patellar and achilles b/l Straight leg test negative on both sides Diagnostic Studies: Lumbar MRI dated 12/10/2012 shows [...] right greater than left resulting in mild tqpra-sszl-tzis-left neuroforaminal narrowing. At L5-S1, there is a [...] CT or MRI evaluation of clinical concern. A: Ms. 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 She has been out of work since the injury and has had appropriate nonoperative care. She is eager to get back to work and has had some improvement in symptoms. P: 1. Med Changes: Advil 400 to 600 mg up to 3 times per day with food and Tylenol 500 to 1000 mg up to 3 times per day, stop tramadol and cut flexeril in 1/2 2. Continue to work with the [facility] for help with Workers' Compensation questions and issues. Additional Changes to Plan per Attending Addendum BELA WALLIS MD Internal Medicine Resident documented in this encounter Plan of Treatment Not on file documented as of this encounter Visit Diagnoses Diagnosis Work related injury Injury, other and unspecified, unspecified site Left-sided low back pain without sciatica documented in this encounter
--- OUTSIDE RECORDS SUMMARY | 2023-10-04 01:09 | XMS_ITS | Encounter Summary ---
Author Organization [facility] [place] [address] Care Team Providers Care Head Cleaning Porter Name Role Phone Unavailable Primary Care Provider Unavailabl e Reason for Referral * Consultation (Routine) - Closed Specialty Diagnoses / Procedures Referred By Contac t Referred To Contact Pain Management Diagnoses Work related injury Back pain Dayanna Garcia MD [facility] [place] [address] Sunny Quinn V [facility] [place] [address] Referral ID Status Reason Start Date Expiration Date V isits Requested Visits Authorized [id number] Closed Consult, Test & Treat 01/04/2014 07/03/2014 1 1 * Occupational Therapy (Routine) - Closed Specialty Diagnoses / Procedures Referred By Contac t Referred To Contact Occupational Therapy Diagnoses Work related injury Dayanna Garcia MD [facility] [place] [address] [facility] [place] [address] Referral ID Status Reason Start Date Expiration Date V isits Requested Visits Authorized [id number] Closed Evaluate and Treat 01/02/2014 07/01/2014 1 1 Reason for Visit * Reason Comments Back Pain Encounter Details Date Type Department Care Team (Late st Contact Info) Description 01/02/2014 10:00 AM EST Office Visit Occupational Medicine at [facility] [place] [address] Dayanna Garcia MD [facility] [place] [address] Work related injury; Back pain Discharge Disposition: [...] Sign Reading Time Taken Comments Blood Pressure 118/48 01/02/2014 10:07 AM EST Pulse 115 01/02/2014 10:07 AM EST Temperature - - Respiratory Rate - - Oxygen Saturation - - Inhaled Oxygen Concentration - - Weight 81.6 kg (180 lb) 01/02/2014 10:07 AM EST Height 167.6 cm (5' 6) 01/02/2014 10:07 AM EST Body Mass Index 29.05 01/02/2014 10:07 AM EST documented in this encounter Progress Notes * Dayanna Garcia MD - 01/04/2014 12:14 PM EST OCCUPATIONAL AND ENVIRONMENTAL MEDICINE FOLLOW UP VISIT Date of injury: 11/15/2012 Date of intake: 12/05/2013 PCP: Margie Peña S: Ms. Abebe is a 43 y.o. year old female whom I am seeing in follow up for Dr. Peña regarding low back injury and return to work. 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 Since that time, she has done physical therapy, aquatherapy, chiropractic treatment, and one injection. This has all been done through [facility] and [facility] except for the chiropractor who is [...] on fire. It occasionally radiates to the exsw-kxylgcx-ieye-right buttock and down the posterior and sometimes the side of the leg. The leg pain feels burning, shooting, and tingling. She does not have any leg numbness. The leg pain occurs a few times a week and can last from 15 minutes to hours. She has been out of work since the injury. 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 She states this is going well. She does not smoke. She also notes general achiness from her fibromyalgia and neck pain, and intermittent upper extremities pain and hand numbness. She does note some issues with balance. She states that she has not had imaging of her neck. She reports no constitutional symptoms, bowel or bowel changes or dysfunction, or other red flags. Since last visit, FCE has not been scheduled. She has seen Pain Medicine with concern about cognitive effects of many sedating medications. She reports no new symptoms. Past Medical History Diagnosis Date ??? Lower back injury 02/05/2013 ??? Bipolar disorder ??? PTSD (post-traumatic stress disorder) ??? Fibromyalgia ??? Environmental allergies with anaphylaxis ??? Degenerative disc disease ??? Allergic state ??? Depression ??? Diabetes mellitus ??? Anxiety ??? GERD (gastroesophageal reflux disease) Current Outpatient Prescriptions Medication Sig Dispense Refill ??? DIVALPROEX SODIUM (DEPAKOTE ER ORAL) Take 250 mg by mouth 2 times daily. ??? [...] as needed. ??? Mometasone (NASONEX) 50 mcg/Actuation [place](s) each side, Nasal, Twice daily Allergies Allergen Reactions ??? Abilify (Aripiprazole) Other (See Comments) hallucinations ??? Morphine Sulfate Nausea And Vomiting ??? Oxycodone-Acetaminophen Other (See Comments) rapid heart rate ??? Amitriptyline Hcl ??? Hydrocodone ??? Oxycodone Hcl O: Filed Vitals: 01/02/14 1007 BP: 118/48 Pulse: 115 She is alert and pleasant in no acute distress. Shruti is positive bilaterally, right greater than left. Exam not repeated today. Diagnostic Studies: Lumbar MRI dated 12/10/2012 shows [...] right greater than left resulting in mild palbu-cwue-rgtj-left neuroforaminal narrowing. At L5-S1, there is a [...] A: Ms. 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 P: 1. FCE scheduled today. Her phone number is listed incorrectly in the system. I requested that thisbe fixed. 2. She is changing her PCP to Megha Ovalle in [facility] and she requested her records [facility]le. We have completed a new records request and forwarded to [facility] so we can get a copy of her records to review. 3. Follow up with Pain Medicine Clinic for functional diagnostic injections. It sounds like only one injection was done in the [facility] at [facility] and there may be other pain-medicine options that may help with pain management. 4. In addition, she is on multiple sedating medications. I would also like Pain Medicine to review this. I will also contact her treating prescribing mental health provider to discuss her grogginess. 5. Continue to work with the [facility] for help with Workers' Compensation questions and issues. 6. In terms of the neck, I suspect that she has some degenerative disk disease in the neck that maybe contributing to some of her neck pain, arm pain, hand numbness, and fibromyalgia symptoms. A reasonable place to start would be a cervical x-ray with flexion and extension views and a cervical MRI given positive Spurling and Shruti sign, although the Shruti sign may be related to her centrally acting medications. I will coordinate with her new PCP for ordering these. 7. Once these steps have been completed, it may be reasonable for her to be reevaluated by a patient financial specialist. We will reassess once the neck imaging and Pain Medicine evaluation have been completed. 8. Follow up after FCE and Pain Medicine evaluation. 20 minutes of this 25 minute visit were spent discussing diagnosis, treatment, and work capacity using a shared decision making approach. documented in this encounter Plan of Treatment Scheduled Referrals Name Type Priority Associated Diagnoses Order Schedule Referral to Occupational Therapy Outpatient Referral Routine Work related injury Ordered: 01/02/2014 Referral to Pain Clinic Outpatient Referral Routine Work related injury Back pain Ordered: 01/04/2014 documented as of this encounter Visit Diagnoses Diagnosis Work related injury Injury, other and unspecified, unspecified site Back pain Backache, unspecified documented in this encounter
--- OUTSIDE RECORDS SUMMARY | 2023-10-04 01:09 | XMS_ITS | Encounter Summary ---
Author Organization [facility] [place] [address] Care Team Providers Care Chaplaincy Name Role Phone Unavailable Primary Care Provider Unavailabl e Reason for Visit * Reason Onset Date Comments Appointment 01/06/2014 Encounter Details Date Type Department Care Team (Late st Contact Info) Description 01/06/2014 Telephone Family Medicine at [facility] [address] [place] [phone] Kathe Joy Appointment Social History Tobacco Use Types Packs/Day Years Used Date Smoking Tobacco: Never Smokeless Tobacco: Never Sex and Gender Information Value Date Recorded Sex Assigned at Female 09/09/2020 10:10 PM EDT Gender Identity Female 09/09/2020 10:10 PM EDT Sexual Orientation Straight 09/09/2020 10 :10 PM EDT documented as of this encounter Miscellaneous Notes * Telephone Encounter - Kathe Joy - 01/06/2014 11:17 AM EST If a patient is feeling ill, ask the following questions: 1. Do you currently have a cough? Answer: NO 2. Do you feel like you have a fever? Answer: NO If no to both, patient may schedule a regular appointment. Schedule as appropriate. documented in this encounter Plan of Treatment Not on file documented as of this encounter Visit Diagnoses Not on filedocumented in this encounter
--- OUTSIDE RECORDS SUMMARY | 2023-10-04 01:09 | XMS_ITS | Encounter Summary ---
Author Organization [facility] [place] [address] Care Team Providers Care Merchandising Consultant Name Role Phone Unavailable Primary Care Provider Unavailabl e Reason for Visit * Reason Comments Other Encounter Details Date Type Department Care Team (Late st Contact Info) Description 06/06/2014 Telephone [place] [phone] Dayanna Garcia MD [facility] [place] [address] Social History Tobacco Use Types Packs/Day Years [...] encounter Miscellaneous Notes * Telephone Encounter - Dayanna Garcia MD - 06/06/2014 5:17 PM EDT ----- Message from Alivia Ken sent at 05/30/2014 10:42 AM EDT ----- Regarding: Mesage reminder SO before scheduling, I will call her and see where she is with things and whether it can be wrapped up by phone???if not, I will see what needs to be done re: scheduling. Thanks! Would you be willing and have time to send me a [employer] message to remind me and let the patient know I will be calling? Thank you! Dayanna Gan. MD Radha, PhD, MPH, FACOEM documented in this encounter Plan of Treatment Not on file documented as of this encounter Visit Diagnoses Not on filedocumented in this encounter
--- OUTSIDE RECORDS SUMMARY | 2023-10-04 01:09 | XMS_ITS | Encounter Summary ---
Author Organization [facility] [place] [address] Care Team Providers Care Steam Shovel Engineer Name Role Phone Unavailable Primary Care Provider Unavailabl e Reason for Visit * Reason Comments Work Related Injury DOI 11-15-12 Low Back Pain here for 2nd opinion Bilateral Leg Pain intermittent leg arlene n Encounter Details Date Type Department Care Team (Late st Contact Info) Description 02/05/2013 9:40 AM EST Office [place] [address] Chuy Conway MD [facility] [place] [address] Back pain (Primary Dx) Discharge Disposition: Home [...] Sign Reading Time Taken Comments Blood Pressure 94/68 02/05/2013 9:56 AM EST Pulse - - Temperature - - Respiratory Rate - - Oxygen Saturation - - Inhaled Oxygen Concentration - - Weight 83.5 kg (184 lb) 02/05/2013 9:56 AM EST Height 167.6 cm (5' 6) 02/05/2013 9:56 AM EST Body Mass Index 29.7 02/05/2013 9:56 AM EST documented in this encounter Progress Notes * Chuy Conway MD - 02/05/2013 10:24 AM EST Ms Abebe is a 42-year-old woman seen today in the spine center consultation from Andrew Cline. This patient was seen and evaluated for chronic low back pain. She has had back pain on and off going back to 2006. She has had refractory improvement to varying degrees of medical management. By the patient's report and amended here at patient's request, she did have good years from [phone], and then re-injured her back at work on 11/15/2012 when she was working at [employer], having worked there for approximately five weeks. She has pain in her back. She has varying degrees of symptoms in her legs in a nondermatomal distribution left equal to right, which were intermittent and fleeting. Her primary problems is pain at the lumbosacral junction. She notes no numbness, no focal weakness, nothing has made her better. She has pain at night, but it is the same is her pain during the day. REVIEW OF SYSTEMS: Negative for GI, , or constitutional symptoms. PAST MEDICAL HISTORY: Includes fibromyalgia and oral surgery. FAMILY HISTORY: Includes coronary artery disease and diabetes. Treatment thus far have included behavioral health care coordinator, physical therapy, pool therapy, and she has also had injections without improvement as subsequently reported by the patient and amended here. This is a pleasant woman. She moves about the office with ease and changes position without limitation. She has multiple moans and groans during the procedure and comments about her inabilities to perform certain portions of the exam. She finds walking painful, but appears to do it without problems. She is able to toe and heel walk, but notes pain, weakness, and balance problems when doing all three. Her pelvis is level. Her spine is straight. She has pain throughout her lower cervical spine to her sacrum. She has pain in the left sciatic notch, but not the right side. She has no pain to pelvic rotation. Lower extremity motor examination is normal. Sensory function is intact to light touch. Reflexes are 2 at the knees and 1 at the ankles. Her straight leg raise does produces low back only. Calf musculature are soft, bilaterally tender, left greater than right. She has no edema or atrophy. Lumbar MRI dated 12/10/2012, at [facility] demonstrates disk dehydration at L4-L5 and L5-S1 with high-intensity signal at both levels, but no evidence of any significant nerve root compression. In fact, the MRI is very reassuring. The specific anatomic etiology of this patient's pain remains unclear. My interpretation of her history is that she has had chronic low back pain without substantial relief for years. Her recent injuries have aggravated or exacerbated her symptoms. My interpretation is that she has largely failed medical management as amended by pateints' request. I see no indication for any surgical management. All this was reviewed with the patient. I have made no changes in her medical management other than recommending that she continue to remain as active as possible. Any further followup in the spine center would be with claim review medical director. documented in this encounter Miscellaneous Notes * Miscellaneous - Provider, Scanning - 02/21/2013 11:55 AM EST documented in this encounter Plan of Treatment Not on file documented as of this encounter Visit Diagnoses Diagnosis Back pain- Primary Backache, unspecified documented in this encounter
--- OUTSIDE RECORDS SUMMARY | 2023-10-04 01:09 | XMS_ITS | Encounter Summary ---
[facility] [place] [address] Care Team Providers Care Toggle Press Operator Name Role Phone Unavailable Primary Care Provider Unavailabl e Encounter Details Date Type Department Care Team (Late st Contact Info) Description 07/08/2014 Telephone Psychiatry [place] [id number] Joanna Jennings PsyD [facility] [place] [address] Social History Tobacco Use Types Packs/Day Years [...] encounter Miscellaneous Notes * Telephone Encounter - Joanna Jennings PsyD - 07/08/2014 10:38 AM EDT Psychiatry Emergency Services Call from [facility] nurse, Octavia, to [facility] staff, Janette Chou, . Caller had indicated she wasfeeling suicidal and then hung up (when speaking with [facility] Nurse). This director underwriter sales phone pt and receivedVM- left message indicating to pt reason for call (check in re: statements she made to [facility] nurse suggesting SI) and that if f/u call was not received in approximately 10 minutes, her local police department would be contacted to conduct a safety check. This director underwriter sales contacted and spoke with pt several minutes later. Pt was reluctant to identify the source of her distress. Pt noted that she had considered plans , but indicated that presently she was safe. Problem solved with pt and called her local [facility] ([facility] on her behalf to obtain walk in hours when she could be seen there) while pt waited on the phone. Pt informed that [facility] walk in hours were between 2 and 4 today. Pt reluctant to proceed to her nearest emergency room (likely [place]), but considered coming to [facility] ED. Pt was encouraged not to drive if she was feeing suicidal . After being on the phone for approximately 20 minutes, pt disclosed that she actually has a treating psychiatrist already, Dr. Cervantes (who is local to her). She states she never did see Dr Enmanuel Rdz [facility] but saw another psychiatrist there.( it is unclear why she changed). Pt noted that she had not yet called her psychiatrist and was encouraged to do so. She agreed she would. She returned call to this director underwriter sales and noted that she had an appointment to see her psychiatristtoday at 12:30. Pt noted that she felt that she would safely make it to this appointment. this director underwriter sales spoke with Toyin at Dr Cervantes's office ) who indicated that pt did have a 12:30 appointment. She confirmed that she thong pass on concerns to Dr Cervantes (re pt's recent SI) documented in this encounter Plan of Treatment Not on file documented as of this encounter Visit Diagnoses Not on filedocumented in this encounter
--- OUTSIDE RECORDS SUMMARY | 2023-10-04 01:09 | XMS_ITS | Encounter Summary ---
Author Organization [facility] [place] [place] [address] Care Team Providers Care Director Of Digital Technology Name Role Phone Unavailable Primary Care Provider Unavailabl e Reason for Visit * Reason Comments Establish Care Muscle weakness, par asthesia, neck pain Encounter Details Date Type Department Care Team (Late st Contact Info) Description 01/08/2014 2:05 PM EST Office Visit Family Medicine at [facility] [address] [place] [address] Martha Santos, ENTERPRISE INTEGRATION DEVELOPER [facility] [place] [address] Dizziness; Lower extremity weakness; Neck pain; Overactive thyroid gland; Fibromyalgia Discharge Disposition: Home Social History Tobacco Use [...] Sign Reading Time Taken Comments Blood Pressure 114/77 01/08/2014 2:01 PM EST Pulse 111 01/08/2014 2:01 PM EST Temperature 36.8 ??C (98.3 ??F) 01/08/2014 2:01 PM ES T Respiratory Rate 16 01/08/2014 2:01 PM EST Oxygen Saturation 100% 01/08/2014 2:01 PM EST Inhaled Oxygen Concentration - - Weight 81.1 kg (178 lb 12.8 oz) 01/08/2014 2:01 PM EST Height 166 cm (5' 5.35) 01/08/2014 2:01 PM EST Body Mass Index 29.43 01/08/2014 2:01 PM EST documented in this encounter Progress Notes * Sonja Santosaraceli Valencia, ENTERPRISE INTEGRATION DEVELOPER - 01/08/2014 2:30 PM EST Chief Complaint Patient presents with ??? Establish Care Muscle weakness, parasthesia, neck pain HPI: 43 y.o. female presents to establish care this office. Is moving down this way in next several months. Is seeing [facility] for work injury back pain. [facility] is considering MRI the neck, wanted patient to establish with new PCP prior to MRI. Has had previous xray and CT scan neck. Recent [facility] note and previous other specialty notes in [facility] reviewed. Dizziness: since April, notes [facility] thinks it's r/t neck pain. No room spins. Head feels light, feels like may fall, feels off balance but doesn't fall. Legs feel weak - getting around the house is OK, uses cart to shop r/t leg weakness, feeling like she may fall. No leg pain. Has noted muscle weakness with fibromyalgia initially (dx 11 years ago), but none since starting medication. Had MRI head over 10 years ago. Also pins needles hands and feet last few weeks. No changes in neck pain; no previous pins needles sensation prior to 3 weeks ago. No changes in medications, food fluids, no travel, no URI or GI s/s prior to onset. Does have some intermittent nausea, present since onset neck pain almost a year ago.Has baseline fast heart, no irregular HR, no SOB. ROS: see HPI above Patient Active Problem List Diagnosis Code ??? Allergic rhinitis Dr. Coats, [facility] Allergy 477.9 ??? Food allergy 995.7 ??? Back pain 724.5 ??? Work related injury 959.9 ??? PTSD (post-traumatic stress disorder) - Dr Cervantes, [facility] 309.81 ??? Bipolar disorder 296.80 ??? Overactive thyroid gland - sees Dr Barlow, [facility] Endocrine; Dr. Craig, [facility] ENT will do partial thyroidectomy 242.90 ??? Fibromyalgia 729.1 Past Surgical History Procedure Laterality Date ??? Mastectomy, partial ??? Rotator cuff repair ??? Septoplasty tonsils and upper palate reshaping ??? Endometrial ablation ??? Cholecystectomy ??? 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 Takes it with cyclobenazprine ??? fexofenadine (PAULEI) 180 mg tablet Take 1 tablet by mouth daily. 90 tablet 3 ??? diphenhydrAMINE (BENADRYL) 25 mg capsule Take 25-50 mg by mouth as needed. ??? Mometasone (NASONEX) 50 mcg/Actuation [place] 2 [place]enport(s) each side, Nasal, Twice daily No current facility-administered medications for this visit. Allergies Allergen Reactions ??? Abilify [Aripiprazole] Other (See Comments) hallucinations ??? Morphine Sulfate Nausea And Vomiting ??? Oxycodone-Acetaminophen Other (See Comments) rapid heart rate ??? Amitriptyline Hcl ??? Hydrocodone ??? Oxycodone Hcl Physical Exam: Filed Vitals: 01/08/14 1401 BP: 114/77 Pulse: 111 Temp: 36.8 ??C (98.3 ??F) TempSrc: Oral Resp: 16 Height: 166 cm (5' 5.35) Weight: 81.103 kg (178 lb 12.8 oz) SpO2: 100% Physical Exam Constitutional: She appears well-developed and well-nourished. No distress. HENT: Nose: Nose normal. Mouth/Throat: No oropharyngeal exudate. TMs nl canals clear no sinus tenderness Cardiovascular: Normal rate, regular rhythm and normal heart sounds. No murmur heard. Pulmonary/Chest: Effort normal and breath sounds normal. Neurological: She is alert. She has normal strength and normal reflexes. No cranial nerve deficit or sensory deficit. She displays a negative Romberg sign. Coordination and gait normal. Declined EOMs I'll be dizzy Heel toe walk nl, speech nl All ext flex extend ab/adduction rotation strength nl. Sensation intact throughout lower bilat LE. Assessment/Plan: Dizziness, report LE weakness, neck pain: reviewed exam findings in detail with patient. Need previous medical records re hx eval, previous workups and testing. Reviewed current endocrine mgmt plan, upcoming surgery. Consider MRI head given LE weakness, dizziness; consider MRI neck per [facility]. Patient to follow up with PCP once previous records available for review, for next steps. Preventive care: Td current. Has signed records release, reviewed need for records all other providers. 20 minutes of this 30 minute visit was spent obtaining and reviewing patient history, and in counseling/coordination of care, review of treatment, plan of care and follow up of the above diagnosis. documented in this encounter Plan of Treatment Not on file documented as of this encounter Visit Diagnoses Diagnosis Dizziness Dizziness and giddiness Lower extremity weakness Other musculoskeletal symptoms referable to limbs Neck pain Cervicalgia Overactive thyroid gland Thyrotoxicosis without mention of goiter or other cause, without mention of thyrotoxic crisis or storm Fibromyalgia Mylagia and myositis, unspecified documented in this encounter
--- OUTSIDE RECORDS SUMMARY | 2023-10-04 01:09 | XMS_ITS | Encounter Summary ---
[place] [address] Care Team Providers Care Home Performance Consultant Name Role Phone Unavailable Primary Care Provider Unavailabl e Encounter Details Date Type Department Care Team (Late st Contact Info) Description 12/17/2013 Notes [place] [phone] Jessa Oliver MSW Social History Tobacco Use Types Packs/Day Years Used Date Smoking Tobacco: Never Smokeless Tobacco: Never Sex and Gender Information Value Date Recorded Sex Assigned at Female 09/09/2020 10:10 PM EDT Gender Identity Female 09/09/2020 10:10 PM EDT Sexual Orientation Straight 09/09/2020 10 :10 PM EDT documented as of this encounter Progress Notes * Jessa Oliver MSW - 12/17/2013 3:18 PM EDT [facility] [employer] WORK CONTINUING FITTER / WELDER CLAIM # DOI: INSURANCE COMAPANY: [employer] CONTACT:Rhoda BOND FAX:[phone] PHONE:[phone] CALL TO: Emilee Abebe Tried to contact pt. Phone not accepting calls CALL TO: centerless grinding machine adjuster: gloria vm alerting her to new referral to pool therapy and requesting a call back to review pt's current claim situation and plan of care. Faxed referrals to Pool therapy. documented in this encounter Plan of Treatment Not on file documented as of this encounter Visit Diagnoses Not on filedocumented in this encounter
--- OUTSIDE RECORDS SUMMARY | 2023-10-04 01:09 | XMS_ITS | Encounter Summary ---
Author Organization [facility] Address [facility] [place] [address] Care Team Providers Care Urgent Care Physician Name Role Phone Unavailable Primary Care Provider Unavailabl e Reason for Visit * Reason Onset Date Comments Medication Refill 06/16/2014 Encounter Details Date Type Department Care Team (Late st Contact Info) Description 06/16/2014 Refill Family Medicine at [facility] [address] [place] [address] Megha Dumont MD [facility] [place] [address] Neck pain Social History Tobacco Use Types [...] encounter Miscellaneous Notes * Telephone Encounter - Rosemarie Shaikh - 06/16/2014 1:24 PM EDT Pt is out of fexofenadine (PAULIE). Pt had originally requested this refill on 06/05 from the allergy dept. but they would not refill as they have not seen her since 2011. Pt is hoping her PCP can provide the refill Rx. Pt states this is what she had requested on the refill line on 06/10 that had been noted as unclear on the message. documented in this encounter Plan of Treatment Not on file documented as of this encounter Visit Diagnoses Diagnosis Neck pain Cervicalgia documented in this encounter
--- OUTSIDE RECORDS SUMMARY | 2023-10-04 01:10 | XMS_ITS | Encounter Summary ---
Author Organization [facility] [place] [address] Care Team Providers Care Molder Vacuum Name Role Phone Unavailable Primary Care Provider Unavailabl e Reason for Visit * Reason Onset Date Comments Medication Refill 08/10/2011 Екатерина Drug re quests Fexofenadine 180mg Encounter Details Date Type Department Care Team (Late st Contact Info) Description 08/10/2011 [place] [address] Sunny John MD [facility] [place] [address] Allergic rhinitis Social History Tobacco Use Types Packs/Day Years Used Date Smoking Tobacco: Never Assessed Sex and Gender Information Value Date Recorded Sex Assigned at Female 09/09/2020 10:10 PM EDT Gender Identity Female 09/09/2020 10:10 PM EDT Sexual Orientation Straight 09/09/2020 10 :10 PM EDT documented as of this encounter Plan of Treatment Not on file documented as of this encounter Visit Diagnoses Diagnosis Allergic rhinitis Allergic rhinitis, cause unspecified documented in this encounter
--- OUTSIDE RECORDS SUMMARY | 2023-10-04 01:10 | XMS_ITS | Encounter Summary ---
[place] [address] Care Team Providers Care Sheet Metal Shop Foreman Name Role Phone Unavailable Primary Care Provider Unavailabl e Encounter Details Date Type Department Care Team (Late st Contact Info) Description 08/10/2011 Orders [place] [address] Sunny John MD [facility] [address] [place] [address] Social History Tobacco Use Types Packs/Day Years [...]
--- OUTSIDE RECORDS SUMMARY | 2023-10-04 01:10 | XMS_ITS | Encounter Summary ---
Author Organization [facility]ly [facility] [place] [address] Care Team Providers Care Boat Master Name Role Phone Unavailable Primary Care Provider Unavailabl e Reason for Visit * Reason Comments Follow-up Encounter Details Date Type Department Care Team ([facility] st Contact Info) Description 08/03/2010 11:05 AM EDT [place] [address] Bessy John MD [facility] ALLERGY [place] [address] Food allergy; Urticaria; Allergic rhinitis Discharge Disposition: Home Social History Tobacco Use Types Packs/Day Years Used Date Smoking Tobacco: Never Assessed Sex and Gender Information Value Date Recorded Sex Assigned at Female 09/09/2020 10:10 PM EDT Gender Identity Female 09/09/2020 10:10 PM EDT Sexual Orientation Straight 09/09/2020 10 :10 PM EDT documented as of this encounter Last Filed Vital Signs Vital Sign Reading Time Taken Comments Blood Pressure 125/73 08/03/2010 11:16 AM EDT Pulse 114 08/03/2010 11:16 AM EDT Temperature - - Respiratory Rate 20 08/03/2010 11:16 AM EDT Oxygen Saturation - - Inhaled Oxygen Concentration - - Weight 79.4 kg (175 lb) 08/03/2010 11:16 AM EDT Height 167.6 cm (5' 6) 08/03/2010 11:16 AM EDT Body Mass Index 28.25 08/03/2010 11:16 AM EDT documented in this encounter Progress Notes * Bessy John MD - 08/03/2010 12:00 PM EDTAddended by: BESSY JOHN on: 08/03/2010 Modules accepted: Orders * Bessy John MD - 08/03/2010 11:44 AM EDT Subjective: Patient ID: Emilee Yanez is a 40 y.o. female. HPI 1. Allergic rhinitis - pos testing to seasonal pollens, dust mite and cat and timber kimani via RAST Using nasonex 2 sprays each nostril BID as well as daily zyrtec and also taking benadryl at night Zyrtec is making her sleepy 2. Food allergies - pos IgE to peanut, tree nuts as well as several fruits and vegetables Recently developed cough and itching on hands after eating green beans and snap peas Apples caused and uncooked bananas itchy throat and ears, can tolerate cooked bananas Celery caused shortness of breath, also had cough with carrots Avocados seem to be ok No problems with latex Shellfish (shrimp and lobster) causes cough and itchy hands Review of Systems All other systems reviewed and are negative. Objective: Physical Exam Nursing note and vitals reviewed. Constitutional: She appears well-developed and well-nourished. No distress. HENT: Head: Normocephalic and atraumatic. Mouth/Throat: Oropharynx is clear and moist. No oropharyngeal exudate. Mild nasal congestion Eyes: Conjunctivae and EOM are normal. Pupils are equal, round, and reactive to light. Right eye exhibits no discharge. Left eye exhibits no discharge. No scleral icterus. Cardiovascular: Normal rate, regular rhythm, normal heart sounds and intact distal pulses. Exam reveals no gallop and no friction rub. No murmur heard. Skin: She is not diaphoretic. Assessment and Plan: 1. Allergic rhinitis - continue nasonex 2 sprays each nostril BID Spoke about starting dust mite precautions, keep cats out of bedroom Use sinus rinses daily Stop benadryl and zyrtec due to sedation and start german 180 mg daily We spoke about allergen immunotherapy and she would like to start this Will check RAST to grass since this was not previously checked 2. Food allergies - check RAST to shrimp and lobster, will also check tryptase given recurrent reactions Continue avoidence measures Carry Epipen (I refilled this today) Follow up in 1 year while on allergen immunotherapy 25 minutes out of this 40 minute visit (lasting from 11:15 am to 11:55 am) was spent in counseling discussing allergen avoidence (food and environmental) and also going over risks, benefits and alternatives to immunotherapy including the risk of life-threatening anaphylaxis to the allergen injections. Informed consent was discussed with the patient and a copy of the signed informed consent form was placed in the chart to be scanned into eDH. Addendum: Abel grass is pos, so will add this to immunotherapy regimen Shrimp and lobster RAST is neg, will plan to continue avoidence until we can do skin test in clinic Tryptase is negative documented in this encounter Plan of Treatment Not on file documented as of this encounter Procedures Procedure Name Priority Date/Time Associated Diagnosis Comments TRYPTASE Routine 08/03/2010 12:19 PM EDT Urticaria LOBSTER IGE Routine 08/03/2010 12:19 PM EDT Food allergy SHRIMP IGE Routine 08/03/2010 12:19 PM EDT Food allergy ABEL GRASS IGE Routine 08/03/2010 12: 19 PM EDT Allergic rhinitis documented in this encounter Results * Tryptase (08/03/2010 12:19 PM EDT) [facility] Signature Tryptase 5 2 - 10 ng/mL [facility] Comment: This test was performed using a kit that has not been cleared or approved by the FDA. ??The analytical performance characteristics of this test have been determined by [email or web address] [place], [place], [place]. ??This test should not be used for diagnosis without confirmation by other medically established means. The Tryptase test, fluorescent enzyme immunoassay (FEIA), measures both the Alpha and Beta forms of Tryptase. Measuring both forms of Tryptase increases sensitivity for the diagnosis of mastocytosis, and mast cell degranulation as a cause of anaphylaxis. Test Performed by [employer] [facility], [address] [place] [address] Andre Ann M.D., Ph.D., Director of Laboratories , [place] [id number] Blood specimen (specimen) 08/03/2010 12:19 PM EDT 08/03/2010 1:09 PM EDT Bessy John MD CHEMISTRY ORDERABLE S Performing Organization Address [facility] Co de Phone Number [facility] * Lobster IgE (08/03/2010 12:19 PM EDT) Lobster, IgE <0.35 kU/L [facility] Comment: Class 0 (Negative <0.35) Test Performed by: [facility] Dpt of Lab Med and Pathology [address] [place] [address] Wind Turbine Mechanic: Ronni Phillip III, M.D. Blood specimen (specimen) 08/03/2010 12:19 PM EDT 08/03/2010 1:18 PM EDT Bessy John MD IMMUNOLOGY ORDERABL ES Performing Organization Address [facility] de Phone Number [facility] [facility] * Shrimp IgE (08/03/2010 12:19 PM EDT) Shrimp, IgE <0.35 kU/L [facility] Comment: Class 0 (Negative <0.35) Test Performed by: [facility] Dpt of Lab Med and Pathology [address] [place] [address] Wind Turbine Mechanic: Ronni Phillip III, M.D. Blood specimen (specimen) 08/03/2010 12:19 PM EDT 08/03/2010 1:18 PM EDT Bessy John MD IMMUNOLOGY ORDERABL ES Performing Organization Address City/[facility]/ZIP Co de Phone Number [facility] * Abel Grass IgE (08/03/2010 12:19 PM EDT) Abel Grass, IgE 7.81 kU/L [facility] Comment: Class 3 (Positive 3.50 - 17.4) Test Performed by: [facility] Dpt of Lab Med and Pathology [address] [place] [address] Wind Turbine Mechanic: Ronni Phillip III, M.D. Blood specimen (specimen) 08/03/2010 12:19 PM EDT 08/03/2010 1:18 PM EDT Bessy John MD IMMUNOLOGY ORDERABL ES Performing Organization Address [facility] Co de Phone Number [facility] documented in this encounter Visit Diagnoses Diagnosis Food allergy Other adverse food reactions, not elsewhere classified Urticaria Urticaria, unspecified Allergic rhinitis Allergic rhinitis, cause unspecified documented in this encounter
--- OUTSIDE RECORDS SUMMARY | 2023-10-04 01:10 | XMS_ITS | Encounter Summary ---
[place] [address] Care Team Providers Care Hot Mill Operator Name Role Phone Unavailable Primary Care Provider Unavailabl e Encounter Details Date Type Department Care Team (Late st Contact Info) Description 12/11/2012 Orders [place] [address] Chuy Conway MD [facility] [place] [address] Social History Tobacco Use Types Packs/Day Years [...]
--- OUTSIDE RECORDS SUMMARY | 2023-10-04 01:10 | XMS_ITS | Encounter Summary ---
Author Organization [facility] [place] [address] Care Team Providers Care Certified Ethical Hacker Name Role Phone Dina Diaz Primary Care Provider + Encounter Details Date Type Department Care Team (Late st Contact Info) Description 12/22/2006 Orders [place] [address] Kishan Alegre MD [facility] [place] [address] Social History Tobacco Use Types Packs/Day Years Used Date Smoking Tobacco: Never Assessed [facility] Inpatient Questions Answer Date Recorded Does Anyone [...] Associated Diagnosis Comments SURGICAL PATHOLOGY REPORT Routine 12/22/2006 11:02 AM EDT documented in this encounter Results * Surgical Pathology Report (12/22/2006 11:02 AM EDT) Surgical Pathology Report [id number] ? Location: [facility]; Formerly named [facility]; B The signing pathologist has (i) examined the relevant preparation(s) for the specimen(s) and (ii) rendered or confirmed the diagnosis(es). . ?Pathology Surgical Pathology Final Report Clinical Information Specimen Submitted: A - Nasal cartilage B - Tonsil left C - Tonsil right D - Uvula Clinical History: Nasal obstruction, deformity Gross Description A - Labeled/Fixativ e: Nasal cartilage, saline. Qty/Size/Weight : ?Multiple, 2.0 x 1.0 x 0.5 cm. Tissue Description: ?? Hard, bonner-white, irregular portions of bone and ?cartilage. Sections/Proces sing: ??No sections are submitted. B - Labeled/Fixativ e: Left tonsil, saline. Quantity/Size: ?One, 3.0 x 2.0 x 1.5 cm. Tissue Description: ?? Archer-pink, rubbery, focally hemorrhagic. ?Cut surfaces are archer-pink with a crypt-like ?architecture and focal hemorrhagic areas. Sections/Proces sing: ??(R1) C - Labeled/Fixativ e: Right tonsil, saline. Quantity/Size: ?One, 3.2 x 2.5 x 1.5 cm. Tissue Description: ?? Archer-pink, rubbery, focally hemorrhagic. ?Cut surfaces are archer-pink with a crypt-like ?architecture and focal areas of hemorrhage. Sections/Proces sing: ??(R1) D - Labeled/Fixativ e: Uvula, saline. Qty/Size/Weight : ?One, 2.5 x 2.0 x 1.5 cm. Tissue Description: ?? Soft, archer-pink polypoid portion of mucosa grossly ?consistent with a uvula. ??No lesions identified. Sections/Proces sing: ??No sections are submitted. [facility] Microscopic Description Slides reviewed, microscopic description not recorded. Diagnosis A - Nasal septum. ?Gross surgical pathology examination. B - Tonsil, left ?Lymphoid follicular hyperplasia C - Tonsil, right ?Lymphoid follicular hyperplasia D - Uvula. . Diagnosis CR-0 12/22/06 [facility] 12/25/06 Verified by: ? Billy Plunkett MD ?Pathologist ?(Electronic Signature) The attending pathologist whose signature appears on this report has reviewed all diagnostic slides and has edited the gross and/or microscopic portion of the report in rendering the final pathologic diagnosis. [facility] 12/22/2006 11:0 2 AM EDT Kishan Alegre MD PATHOLOGY/CYTOLOGY ORDERABLES [facility] documented in this encounter Visit Diagnoses Not on filedocumented in this encounter Care Teams Certified Ethical Hacker Relationship Specialty Start Date End Date Dina Diaz PA [address] [place] [address] [place] [address] PCP - General Internal Medicine 05/26/20 documented as of this encounter
--- OUTSIDE RECORDS SUMMARY | 2023-10-04 01:10 | XMS_ITS | Encounter Summary ---
Author Organization [facility] [place] [address] Care Team Providers Care Studio Operations Engineer In Charge Name Role Phone Unavailable Primary Care Provider Unavailabl e Reason for Visit * Reason Onset Date Comments Medication Problem 08/24/2010 pt. has decid ed not to receive immunotherapy Encounter Details Date Type Department Care Team (Late st Contact Info) Description 08/24/2010 [place] [address] Sunny John MD [facility] [place]ER[place] [address] Social History Tobacco Use Types Packs/Day Years [...]
--- OUTSIDE RECORDS SUMMARY | 2023-10-04 01:10 | XMS_ITS | Encounter Summary ---
Author Organization [facility] [address] Care Team Providers Care Lens Polisher Hand Name Role Phone Unavailable Primary Care Provider Unavailabl e Encounter Details Date Type Department Care Team (Late st Contact Info) Description 08/04/2010 [place] [address] Sunny John MD [facility] [address] [place] [address] Social History Tobacco Use Types Packs/Day Years Used Date Smoking Tobacco: Never Assessed Sex and Gender Information Value Date Recorded Sex Assigned at Female 09/09/2020 10:10 PM EDT Gender Identity Female 09/09/2020 10:10 PM EDT Sexual Orientation Straight 09/09/2020 10 :10 PM EDT documented as of this encounter Progress Notes * Sunny John MD - 08/04/2010 1:52 PM EDT IMMUNOTHERAPY PRESCRIPTION AND PREPARATION NOTE [facility]; Allergy Clinic DATE: 08/04/10 Last F/U Appt: 08/03/10 Next F/U Appt: 1 year VIAL #1 Allergen and concentration Amount (ml) Final Concentration F Mite (farinae) 10,000 AU/ml 2 2,000 AU/ml P Mite (pteronyssinus) 10,000 AU/ml 2 2,000 AU/ml Diluent 6 Total 10 ml New RX X Refill Dilutions: 10 fold (blue) 100 fold (green) 1,000 fold (yellow) X 10,000 fold (silver) Starting Vial: 1,000 fold dilution (yellow) which contains 2 AU/ml DF and DP Starting Dose: 0.05 ml VIAL #2 Allergen and concentration Amount (ml) Final Concentration Gr MxGrass 100,000 BAU/ml 0.5 5,000 BAU/ml Jones Eastern Tree Mix 1:20 1 1:200 Jones Sierra. Cherokee Mx 1:20 2 1:100 Cat 10,000 AU/mL 2 2000 AU/mL Diluent 4.5 Total 10 ml New RX X Refill Dilutions: 10 fold (blue) 100 fold (green) 1,000 fold (yellow) X 10,000 fold (silver) Starting Vial: 1,000 fold dilution (yellow) which contains 0.5 BAU/ml Gr MxGrasses, 1:200,000 Tree mix, 1:100,000 Cherokee mix, and 2 AU/mL cat Starting Dose: 0.05 ml For billing purposes 5 ml vials contain 10 doses; 10 ml vials contain 20 doses. documented in this encounter Plan of Treatment Not on file documented as of this encounter Visit Diagnoses Not on filedocumented in this encounter
--- OUTSIDE RECORDS SUMMARY | 2023-10-04 01:10 | XMS_ITS | Encounter Summary ---
[place] [address] Care Team Providers Care Traveling Operator Name Role Phone Unavailable Primary Care Provider Unavailabl e Encounter Details Date Type Department Care Team (Late st Contact Info) Description 12/10/2012 Orders [place] [address] Chuy Conway MD [facility] [place] [place] [address] Social History Tobacco Use Types Packs/Day Years Used Date Smoking Tobacco: Never Assessed Sex and Gender Information Value Date Recorded Sex Assigned at Female 09/09/2020 10:10 PM EDT Gender Identity Female 09/09/2020 10:10 PM EDT Sexual Orientation Straight 09/09/2020 10 :10 PM EDT documented as of this encounter Plan of Treatment Pending Results Name Type Priority Associated Diagnoses Date /Time Film Library- Storage only MR Spine Imaging Routine 12/10/2012 1:08 AM EDT documented as of this encounter Visit Diagnoses Not on filedocumented in this encounter
--- OUTSIDE RECORDS SUMMARY | 2023-10-04 01:10 | XMS_ITS | Encounter Summary ---
[place] [address] Care Team Providers Care Grind Operator Name Role Phone Unavailable Primary Care Provider Unavailabl e Encounter Details Date Type Department Care Team (Late st Contact Info) Description 01/19/2010 4:20 PM EST Follow-[place] [id number] Rios Hitchcock PA [facility] [place] [address] Social History Tobacco Use Types Packs/Day Years [...]
--- OUTSIDE RECORDS SUMMARY | 2023-10-04 01:10 | XMS_ITS | Encounter Summary ---
[place] [address] Care Team Providers Care Java Software Engineer Name Role Phone Unavailable Primary Care Provider Unavailabl e Encounter Details Date Type Department Care Team (Late st Contact Info) Description 08/02/2010 [place] [address] Janina Davis RN Food allergy Social History Tobacco Use Types Packs/Day Years Used Date Smoking Tobacco: Never Assessed Sex and Gender Information Value Date Recorded Sex Assigned at Female 09/09/2020 10:10 PM EDT Gender Identity Female 09/09/2020 10:10 PM EDT Sexual Orientation Straight 09/09/2020 10 :10 PM EDT documented as of this encounter Plan of Treatment Not on file documented as of this encounter Visit Diagnoses Diagnosis Food allergy Other adverse food reactions, not elsewhere classified documented in this encounter
[2023-10-04] MEDS: Gadoterate meglumine 20 ML VIAL IVP (13:16)
[2023-10-04] MEDS: Normal Saline Flush 10 ML SYR IJ (13:17)
== END ==
PROVIDERS: PCP Internal Medicine; Visit Provider Neurological Surgery
DX: M51.16 Intervertebral disc disorders with radiculopathy, lumbar region (principal)
CPT/HCPCS: 72158